=== PATIENT | male | born 1950 | race Caucasian/White ===

== ENCOUNTER 2019-09-04 14:10 | Inpatient (IN) | payer MEDICARE ==
[2019-09-04] MEDS ORDERED: MORPHINE SULFATE 4 MG/ML SYRINGE IV STA (14:33)
--- NOTE | 2019-09-04 14:36 | ED ---
General Adult HPI - General Source: patient, EMS Mode of arrival: EMS Limitations: no limitations <TyrellAlberto D - Last Filed: 09/04/19 15:11> <Dante Driscoll - Last Filed: 09/04/19 19:52> - General Chief complaint: Shortness of Breath Stated complaint: SOB Time Seen by Provider: 09/04/19 14:22 - History of Present Illness Initial comments: Dictation was produced using [employer] dictation software. please excuse any grammatical, word or spelling errors. This patient was cared for during a federal and state declared state of emergency secondary to Covid 19 Chief Complaint: 68-year-old male presents with bilateral lower extremity leg edema, lower extremity pain and shortness of breath. History of Present Illness: 68-year-old male who has past medical history of heart failure, hypertension myocardial infarction. He presents today with shortness of breath, lower extremity edema and lower extremity pain. Patient states his symptoms began yesterday. When asked which symptoms he is most concerned about his most concerned about his leg pain. Patient states he has exquisite tenderness to bilateral lower extremities worse on the left leg compared to the right. States his whole leg is in pain even to light touch. He states that he is really weak. He feels so weak that he can't stand up and walk. Patient denies any history of neuropathy. Denies any history of gout. Patient states that shortness of breath and lower extremity swelling have been ongoing for years now. The ROS documented in this emergency department record has been reviewed and confirmed by me. Those systems with pertinent positive or negative responses have been documented in the HPI. All other systems are other negative and/or noncontributory. PHYSICAL EXAM: General Impression: Alert and oriented x3, not in acute distress HEENT: Normocephalic atraumatic, extra-ocular movements intact, pupils equal and reactive to light bilaterally, mucous membranes moist. Cardiovascular: Heart regular rate and rhythm Chest: Able to complete full sentences, no retractions, no tachypnea Abdomen: abdomen soft, non-tender, non-distended, no organomegaly Musculoskeletal: Pulses present and equal in all extremities, no peripheral edema, tenderness with palpation around the left ankle joint with flexion and extension. Ankle otherwise looks benign. Motor: no focal deficits noted Neurological: CN II-XII grossly intact, no focal motor or sensory deficits noted Skin: Intact with no visualized rashes, exquisite tenderness with even light touch to his lower extremities Psych: Normal affect and mood ED course: 82-year-old male presents with multiple complaints. Main complaint is pain to the lower extremities bilaterally. He reports that the pain is so bad that he can't walk. All signs upon arrival are within acceptable limits. Patient care center to Dr. Driscoll. My shift is ending at 3 PM. EKG interpretation: Ventricular rate 93, normal sinus rhythm,. 164, QRS 76, QTC 487. No ND prolongation, no QTC prolongation, no ST or T-wave changes noted. Overall, this EKG is unremarkable (Alberto Santillan) - Related Data Allergies Allergy/AdvReac Type Severity Reaction Status Date / Time No Known Allergies Allergy Verified 09/04/19 18:31 Review of Systems ROS Other: All systems not noted in ROS Statement are negative. <Alberto Santillan - Last Filed: 09/04/19 15:11> ROS Other: All systems not noted in ROS Statement are negative. <Dante Driscoll - Last Filed: 09/04/19 19:52> ROS Statement: Those systems with pertinent positive or pertinent negative responses have been documented in the HPI. Past Medical History Past Medical History: Heart Failure, Hypertension, Myocardial Infarction ([place]), Pulmonary Embolus ([place]) History of Any Multi-Drug Resistant Organisms: None Reported Past Surgical History: Heart Catheterization With Stent Past Psychological History: No Psychological Hx Reported Smoking Status: Current every day smoker Past Alcohol Use History: Daily Past Drug Use History: None Reported <Alberto Santillan - Last Filed: 09/04/19 15:11> General Exam Limitations: no limitations <Alberto Santillan - Last Filed: 09/04/19 15:11> Course Vital Signs 09/04/19 09/04/19 09/04/19 14:13 14:24 14:32 Temperature 99.0 F Pulse Rate 92 Respiratory 20 20 Rate Blood Pressure 107/84 O2 Sat by Pulse 94 L 100 Oximetry 09/04/19 09/04/19 09/04/19 15:38 18:40 19:00 Temperature Pulse Rate 93 80 87 Respiratory 18 18 16 Rate Blood Pressure 103/65 112/78 128/69 O2 Sat by Pulse 100 100 97 Oximetry Medical Decision Making - Lab Data Result diagrams: 09/04/19 14:40 <Alberto Santillan - Last Filed: 09/04/19 15:11> - Lab Data Result diagrams: 09/04/19 14:40 09/04/19 14:40 <Dante Driscoll - Last Filed: 09/04/19 19:52> - Medical Decision Making I started the patient high-dose heparin once I saw the CTA showing occlusions of the superficial femoral and the right perineal arteries. I consult to Dr. Rooney and I spoke with Dr. Elaine from [facility] he agreed to admit the patient I wrote admitting orders. I continued heparin on the floor (Dante Driscoll) - Lab Data Lab Results 09/04/19 09/04/19 09/04/19 Range/Units 14:40 14:40 14:40 WBC 5.8 (3.8-10.6) k/uL RBC 2.33 L (4.30-5.90) m/uL Hgb 9.3 L (13.0-17.5) gm/dL Hct 28.0 L (39.0-53.0) % MCV 120.1 H (80.0-100.0) fL MCH 39.9 H (25.0-35.0) pg MCHC 33.2 (31.0-37.0) g/dL RDW 16.0 H (11.5-15.5) % Plt Count 154 (150-450) k/uL Neutrophils % 75 % Lymphocytes % 16 % Monocytes % 6 % Eosinophils % 0 % Basophils % 1 % Neutrophils # 4.4 (1.3-7.7) k/uL Lymphocytes # 0.9 L (1.0-4.8) k/uL Monocytes # 0.3 (0-1.0) k/uL Eosinophils # 0.0 (0-0.7) k/uL Basophils # 0.1 (0-0.2) k/uL Manual Slide Review Performed Anisocytosis Slight Macrocytosis Marked A PT 10.1 (9.0-12.0) sec INR 1.0 (<1.2) APTT 27.6 (22.0-30.0) sec Sodium 138 (137-145) mmol/L Potassium 3.3 L (3.5-5.1) mmol/L Chloride 108 H (98-107) mmol/L Carbon Dioxide 19 L (22-30) mmol/L Anion Gap 11 mmol/L BUN 11 (9-20) mg/dL Creatinine 1.40 H (0.66-1.25) mg/dL Est GFR (CKD-EPI)AfAm 60 (>60 ml/min/1.73 sqM) Est GFR (CKD-EPI)NonAf 51 (>60 ml/min/1.73 sqM) Glucose 96 (74-99) mg/dL Calcium 8.3 L (8.4-10.2) mg/dL Total Bilirubin 1.4 H (0.2-1.3) mg/dL AST 43 (17-59) U/L ALT 18 (4-49) U/L Alkaline Phosphatase 27 L (38-126) U/L Troponin I (0.000-0.034) ng/mL NT-Pro-B Natriuret Pep pg/mL Total Protein 5.7 L (6.3-8.2) g/dL Albumin 2.9 L (3.5-5.0) g/dL 09/04/19 09/04/19 Range/Units 14:40 14:40 WBC (3.8-10.6) k/uL RBC (4.30-5.90) m/uL Hgb (13.0-17.5) gm/dL Hct (39.0-53.0) % MCV (80.0-100.0) fL MCH (25.0-35.0) pg MCHC (31.0-37.0) g/dL RDW (11.5-15.5) % Plt Count (150-450) k/uL Neutrophils % % Lymphocytes % % Monocytes % % Eosinophils % % Basophils % % Neutrophils # (1.3-7.7) k/uL Lymphocytes # (1.0-4.8) k/uL Monocytes # (0-1.0) k/uL Eosinophils # (0-0.7) k/uL Basophils # (0-0.2) k/uL Manual Slide Review Anisocytosis Macrocytosis PT (9.0-12.0) sec INR (<1.2) APTT (22.0-30.0) sec Sodium (137-145) mmol/L Potassium (3.5-5.1) mmol/L Chloride (98-107) mmol/L Carbon Dioxide (22-30) mmol/L Anion Gap mmol/L BUN (9-20) mg/dL Creatinine (0.66-1.25) mg/dL Est GFR (CKD-EPI)AfAm (>60 ml/min/1.73 sqM) Est GFR (CKD-EPI)NonAf (>60 ml/min/1.73 sqM) Glucose (74-99) mg/dL Calcium (8.4-10.2) mg/dL Total Bilirubin (0.2-1.3) mg/dL AST (17-59) U/L ALT (4-49) U/L Alkaline Phosphatase (38-126) U/L Troponin I 0.024 (0.000-0.034) ng/mL NT-Pro-B Natriuret Pep 1470 pg/mL Total Protein (6.3-8.2) g/dL Albumin (3.5-5.0) g/dL Critical Care Time Critical Care Time: Yes Total Critical Care Time: 35 <Dante Driscoll - Last Filed: 09/04/19 19:52> Disposition <Alberto Santillna - Last Filed: 09/04/19 15:11> Time of Disposition: 19:52 <Dante Driscoll - Last Filed: 09/04/19 19:52> Clinical Impression: Bilateral leg pain, Pedal edema, Pulmonary edema Disposition: ADMITTED IP TO THIS [facility] Referrals: Nonstaff,Physician [REFERRING] - 1-2 days
[2019-09-04 14:54] LABS: Anisocytosis Slight; Basophils # (A) 0.1 k/uL (0-0.2); Basophils % (A) 1 %; Eosinophils % (A) 0 %; HGB 9.3 gm/dL (13.0-17.5); Lymphocytes # (A) 0.9 k/uL (1.0-4.8); Lymphocytes % (A) 16 %; MCH 39.9 pg (25.0-35.0); MCHC 33.2 g/dL (31.0-37.0); MCV 120.1 fL (80.0-100.0); Macrocytosis Marked; Mean Platelet Volume 8.4; Monocytes # (A) 0.3 k/uL (0-1.0); Monocytes % (A) 6 %; Neutrophils # (A) 4.4 k/uL (1.3-7.7); Neutrophils % (A) 75 %; Platelet Count 154 k/uL (150-450); RBC 2.33 m/uL (4.30-5.90); WBC 5.8 k/uL (3.8-10.6)
[2019-09-04 15:13] LABS: Partial Thromboplastin Time 27.6 sec (22.0-30.0); Prothrombin Time 10.1 sec (9.0-12.0)
--- NOTE | 2019-09-04 15:26 | XR ---
EXAMINATION TYPE: XR chest 1V portable DATE OF EXAM: 09/04/2019 Comparison: None Clinical History: 68-year-old male shortness of breath, bilateral leg swelling and pain, dyspnea Findings: Median sternotomy wires are present. Heart borderline in size. Mild perihilar density. Hazy periphera l lower lung density relates to overlying soft tissue. Impression: Mild perihilar density. Correlate to exclude mild pulmonary vascular congestion, bronchitis, or asthm a. No focal infiltrate.
--- NOTE | 2019-09-04 15:28 | XR ---
EXAMINATION TYPE: AP view pelvis and 2 views each hip 3 views left ankle DATE OF EXAM: 09/04/2019 COMPARISON: NONE HISTORY: 68-year-old male with pain and swelling FINDINGS: Pelvis and hips: Moderate degenerative change right hip and mild on the left. Vascular calcifications. SI joints and p ubic symphysis (appear intact. No acute fracture, subluxation, or dislocation. Left ankle: Ankle mortise is congruent with preservation of the distal tibiofibular overlap. Mild generalized sof t tissue swelling. Subtalar joint alignment. Small delineation to the Achilles tendon. No acute fract ure, subluxation, or dislocation. IMPRESSION: 1. Pelvis and hips: Moderate right hip and mild left hip OA. No acute osseous abnormality seen. 2. Left ankle: Mild soft tissue swelling without acute osseous abnormality seen.
[2019-09-04 15:32] LABS: Albumin 2.9 g/dL (3.5-5.0); Calcium 8.3 mg/dL (8.4-10.2); Potassium 3.3 mmol/L (3.5-5.1); Total Bilirubin 1.4 mg/dL (0.2-1.3); Total Protein 5.7 g/dL (6.3-8.2)
[2019-09-04] MEDS ORDERED: KETOROLAC 60 MG/2 ML VIAL IVP STA (16:43)
[2019-09-04] MEDS ORDERED: FUROSEMIDE 10 MG/ML 2 ML VIAL IV ONE (16:44)
[2019-09-04] MEDS ORDERED: POTASSIUM CHLORIDE ER 20 MEQ TAB.ER PO STA (16:45)
[2019-09-04] MEDS ORDERED: RX INFO: IV CONTRAST WAS GIVEN 1 EACH MISC MISCELLANE PRN (17:52)
--- NOTE | 2019-09-04 18:59 | CT ---
EXAMINATION TYPE: CT angio lower extremity RT DATE OF EXAM: 09/04/2019 6:35 PM COMPARISON: None HISTORY: Left leg pain, unable to obtain pulses right side. CT DLP: 1305.8 mGycm Automated exposure control for dose reduction was used. TECHNIQUE: Standard CTA of the lower extremities was performed per department protocol with intravenous contrast . Performed with IV Contrast, patient injected with 80 mL of Isovue 370. Three-D reformatted images i n bone and vascular algorithm were obtained at a separate workstation and submitted for review of the lower extremities. FINDINGS: There is complete occlusion of the bilateral superficial femoral arteries beginning at the level of t he lesser trochanter with reconstitution of the popliteal arteries due to collateral branch vessels a nd patency of the deep femoral arteries. 3 branch vessels of the right lower extremity are seen proximally although lesser opacified than on t he left. There is occlusion of the peroneal artery on the right just above the ankle joint and diminu tive flow within the posterior tibial and anterior tibial arteries. Superficial collaterals are seen in the right knee the popliteal artery. The abdominal aorta is heavily calcified with approximately 50% ostial stenosis of the bilateral edwardo l arteries. There is some ostial stenosis of the celiac axis and superior mesenteric artery that appe ar less than 50%. Proximal NATHALIE is widely patent. Extensive atherosclerosis extends into the common il iac arteries and their branches. There is bilateral mild cortical renal atrophy. Nonobstructing calculus is seen on the left measuring approximately 5 mm. No hydronephrosis of either kidney. Superior pole of the kidneys is not imaged. Left adrenal gland is partially limited unremarkable. Gallbladder is also partially imaged. Hepatic s teatosis is partially imaged of only the inferior visualized portion of the liver. The position of marin bmucosal fat is seen in the visualized portions of the right hemicolon and terminal ileum suggesting chronic inflammatory bowel disease. No dilated large or small bowel. Mild to moderate degenerative ch anges of the spine. Medial compartment arthrosis of both knees. IMPRESSION: 1. 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 2. BRANCH VESSELS OF THE RIGHT POPLITEAL ARTERY ARE LESS ARE OPACIFIED THAN ON THE LEFT AND THERE IS OCCLUSION DISTALLY OF THE RIGHT PERONEAL ARTERY. THIS IS SEEN JUST PROXIMAL TO THE ANKLE JOINT. 3. EXTENSIVE ATHEROSCLEROSIS OF THE ABDOMINAL AORTA AND ITS BRANCHES WITH RENAL OSTIAL STENOSIS OF AP PROXIMATELY 50% BILATERALLY. 4. SUBMUCOSAL DEPOSITION OF FAT IN THE VISUALIZED RIGHT HEMICOLON AND TERMINAL ILEUM SUGGESTING UNDER LYING INFLAMMATORY BOWEL DISEASE. 5. NONOBSTRUCTING LEFT RENAL CALCULUS.
[2019-09-04] MEDS ORDERED: HYDROmorphone 0.5 MG/0.5 ML SYRINGE IVP STA (19:25)
[2019-09-04] MEDS ORDERED: HEPARIN SODIUM,PORCINE 5,000 UNIT/ML 1 ML VIAL IV ONE (19:42)
[2019-09-04] MEDS ORDERED: HEPARIN SOD,PORK IN 0.45% NACL 25,000 UNIT in 0.45% NACL 1 250ML.BAG IV SCH (19:45)
[2019-09-04] MEDS ORDERED: HEPARIN SODIUM,PORCINE 10,000 UNIT/ML 1 ML VIAL IV ONE (19:50)
[2019-09-04] MEDS ORDERED: SODIUM CHLORIDE 0.9% 1,000 ML IV ONE (19:53)
[2019-09-04] MEDS: HEPARIN SOD,PORK IN 0.45% NACL 25,000 UNIT in 0.45% NACL 1 250ML.BAG IV SCH (20:46)
[2019-09-04] MEDS: HYDROmorphone 0.5 MG/0.5 ML SYRINGE IVP PRN (22:11)
[2019-09-05] MEDS ORDERED: ATORVASTATIN 80 MG TAB PO STA (00:59)
--- NOTE | 2019-09-05 01:04 | P.HPIM ---
History of Present Illness H&P Date: 09/04/19 The patient is a 68-year-old male with a PMH of CAD status post stenting, CHF, history of PE, and PVD presented to the ED with complaints of long-standing leg and hip pain. The patient notes that he has been having pain with ambulation in both his legs and groin for the past several months. He reports that the pain has recently worsened, and he is now unable to ambulate due to it. He reports following with a physician for his pain, though is unable to recall what their plan was. He reports that though the pain is largely with ambulation, he also has pain in his hips with passive movement of the legs. He denied any pain at rest, tingling, numbness, or weakness. He notes that a few days ago, he was ambulated with a cane, which she is no longer able to do. He lives by himself and has been finding it difficult to perform his ADLs. He also endorsed gradually worsening exertional SOB on-going for the past few weeks. Otherwise denied any additional complaints. Denied chest pain, cough, fever, chills, or sore throat. Also denied abdominal pain, nausea, vomiting, diarrhea, or headache. The patient underwent an extensive evaluation in the emergency room with a lower extremity CTA revealing complete occlusion of the bilateral superficial femoral arteries beginning at the level of the lesser trochanters with collateral vasculature and patent deep femoral arteries. Extensive athero sclerosis of the abdominal aorta and its branches was noted. Incidental finding of submucosal fat deposition and the hemicolon and nonobstructing left renal calculi was noted. Pelvis x-ray revealed mild and moderate osteoarthritis but otherwise unremarkable. Chest x-ray had revealed a mild perihilar density, possible vascular congestion. Laboratory evaluation revealed a WBC count of 5.8, hemoglobin 9.8, sodium 138, potassium 3.3, chloride 108, CO2 19, BUN 11, creatinine 1.4, and coronavirus PCR negative. Review of Systems Pertinent positives and negatives as discussed in HPI, a complete review of systems was performed and all other systems are negative. Past Medical History Past Medical History: Heart Failure, Hypertension, Myocardial Infarction ([place]), Pulmonary Embolus ([place]) History of Any Multi-Drug Resistant Organisms: None Reported Past Surgical History: Heart Catheterization With Stent Past Psychological History: No Psychological Hx Reported Smoking Status: Current every day smoker Past Alcohol Use History: Daily Past Drug Use History: None Reported Medications and Allergies Home Medications Medication Instructions Recorded Confirmed Type Aspirin EC [Ecotrin Low Dose] 81 mg PO DAILY 09/04/19 09/04/19 History Allergies Allergy/AdvReac Type Severity Reaction Status Date / Time No Known Allergies Allergy Verified 09/04/19 18:31 Physical Exam Vitals: Vital Signs Temp Pulse Resp BP Pulse Ox 09/04/19 22:11 98.1 F 77 18 104/61 98 09/04/19 19:00 87 16 128/69 97 09/04/19 18:40 80 18 112/78 100 09/04/19 15:38 93 18 103/65 100 09/04/19 14:32 20 09/04/19 14:24 100 09/04/19 14:13 99.0 F 92 20 107/84 94 L Intake and Output 09/04/19 09/04/19 09/05/19 14:59 22:59 06:59 Other: Weight 102.058 kg General: non toxic, no distress, appears at stated age, obese Derm: no unusual rashes/lesions no unusual ecchymoses, warm, dry Head: atraumatic, normocephalic, symmetric Eyes: EOMI, no lid lag, anicteric sclera, pupils equal round reactive to light ENT: Nose and ears atraumatic, no thrush, no pharyngeal erythema Neck: No thyromegaly, no cervical lymphadenopathy, trachea midline, supple Mouth: no lip lesion, mucus membranes moist Cardiovascular: S1S2 reg, no murmur, unable to palpate bilateral dorsalis pedis or posterior tibial pulses, no edema Lungs: Mild bibasilar rales, no rhonchi or wheezing appreciated, no accessory muscle use Abdominal: soft, nontender to palpation, no guarding, no appreciable organomegaly, normal bowel sounds Ext: Bilateral lower extremity pain with active and passive movements, with pain centered around the knees and hips, no contractures, Neuro: CN II-XI grossly intact, light touch intact all 4 extremities, finger to nose within normal limits, Psych: Alert, oriented, appropriate affect Results CBC & Chem 7: 09/04/19 14:40 09/04/19 14:40 Labs: Abnormal Lab Results - Last 24 Hours (Table) 09/04/19 09/04/19 Range/Units 14:40 14:40 RBC 2.33 L (4.30-5.90) m/uL Hgb 9.3 L (13.0-17.5) gm/dL Hct 28.0 L (39.0-53.0) % MCV 120.1 H (80.0-100.0) fL MCH 39.9 H (25.0-35.0) pg RDW 16.0 H (11.5-15.5) % Lymphocytes # 0.9 L (1.0-4.8) k/uL Macrocytosis Marked A Potassium 3.3 L (3.5-5.1) mmol/L Chloride 108 H (98-107) mmol/L Carbon Dioxide 19 L (22-30) mmol/L Creatinine 1.40 H (0.66-1.25) mg/dL Calcium 8.3 L (8.4-10.2) mg/dL Total Bilirubin 1.4 H (0.2-1.3) mg/dL Alkaline Phosphatase 27 L (38-126) U/L Total Protein 5.7 L (6.3-8.2) g/dL Albumin 2.9 L (3.5-5.0) g/dL Assessment and Plan Plan: Bilateral lower extremity pain, likely due to peripheral vascular disease -Vascular surgery consulted -ED physician discussed the case with Dr. Shook (Vascular Surgeon) recommended an evaluation for now with evaluation in am -Continue with heparin infusion -Continue with pain control -Start Statin -Patient's home med list is not updated and he does not know the names of any of his medications -Will need to call his pharmacy in the morning and obtain the list SOB, with hx of CHF -Echocardiogram -Judicious use of IVFs -Consider obtaining records -Cardiac monitoring Hypokalemia -Replace and monitor Macrocytic anemia -Check B12 and folate Elevated creatinine, unknown baseline -Monitor BMP for now DVT prophylaxis -Heparin infusion The patient is admitted with an anticipated greater than 2 midnight stay for evaluation of peripheral vascular disease CODE STATUS: Full Code Discussed with: Patient Anticipated discharge date: 2-[address]: Home A total of 45 minutes was spent on the care of this complex patient more than 50% of the time was spent in counseling and care coordination.
[2019-09-05 03:25] LABS: Anisocytosis Slight; HCT 25.3 % (39.0-53.0); HGB 8.3 gm/dL (13.0-17.5); Hypochromasia Slight; MCH 40.1 pg (25.0-35.0); MCHC 32.6 g/dL (31.0-37.0); Macrocytosis Marked; Mean Platelet Volume 8.2; Platelet Count 119 k/uL (150-450); RBC 2.06 m/uL (4.30-5.90); RDW 16.6 % (11.5-15.5); WBC 4.4 k/uL (3.8-10.6)
[2019-09-05 03:43] LABS: Calcium 7.9 mg/dL (8.4-10.2); Potassium 3.4 mmol/L (3.5-5.1)
[2019-09-05] MEDS: HYDROmorphone 0.5 MG/0.5 ML SYRINGE IVP PRN (04:10)
[2019-09-05] MEDS ORDERED: FUROSEMIDE 10 MG/ML 2 ML VIAL IV SCH (09:00)
[2019-09-05 10:19] LABS: % Iron Saturation 29.25 (15.00-50.00)
[2019-09-05 10:30] LABS: Folate, Serum 2.1 ng/mL
--- NOTE | 2019-09-05 11:00 | ECHOF ---
Referral Reason:SOB MEASUREMENTS -------- HEIGHT: 180.3 cm WEIGHT: 102.1 kg BP: 118/56 RVIDd: 3.3 cm (< 3.3) IVSd: 1.1 cm (0.6 - 1.1) LVIDd: 4.3 cm (3.9 - 5.3) LVPWd: 1.2 cm (0.6 - 1.1) IVSs: 1.5 cm LVIDs: 2.7 cm LVPWs: 2.4 cm LAESV Index (A-L): 18.73 ml/m Ao Diam: 3.4 cm (2.0 - 3.7) AV Cusp: 1.7 cm (1.5 - 2.6) LA Diam: 4.0 cm (2.7 - 3.8) MV EXCURSION: 12.104 mm (> 18.000) MV EF SLOPE: 56 mm/s (70 - 150) EPSS: 0.4 cm MV E Dorian: 0.82 m/s MV DecT: 236 ms MV A Dorian: 0.99 m/s MV E/A Ratio: 0.83 RAP: 5.00 mmHg RVSP: 19.26 mmHg TAPSE: 21.26 mm FINDINGS -------- Sinus rhythm. This was a technically adequate study. The left ventricular size is normal. There is borderline concentric left ventricular hypertrophy. Overall left ventricular systolic function is normal with, an EF between 55 - 60 %. Normal LAP Gra de 1 Diastolic Dysfunction. The right ventricle is mildly enlarged. The right ventricular systolic function is normal. The left atrial size is normal. Normal LA size by volume 22+/-6 ml/m2. The right atrial size is normal. The aortic valve is trileaflet and appears structurally normal. The mitral valve is normal. Mild mitral regurgitation is present. The tricuspid valve appears structurally normal. Mild tricuspid regurgitation present. Right vent ricular systolic pressure is normal at < 35 mmHg. There is no pulmonic regurgitation present. The aortic root size is normal. Normal inferior vena cava with normal inspiratory collapse consistent with estimated right atrial pre ssure of 5 mmHg. There is a small, generalized pericardial effusion present. CONCLUSIONS -------- 1. Sinus rhythm. 2. This was a technically adequate study. 3. The left ventricular size is normal. 4. There is borderline concentric left ventricular hypertrophy. 5. Overall left ventricular systolic function is normal with, an EF between 55 - 60 %. 6. Normal LAP Grade 1 Diastolic Dysfunction. 7. The right ventricle is mildly enlarged. 8. The right ventricular systolic function is normal. 9. The left atrial size is normal. 10. Normal LA size by volume 22+/-6 ml/m2. 11. The right atrial size is normal. 12. The aortic valve is trileaflet and appears structurally normal. 13. The mitral valve is normal. 14. Mild mitral regurgitation is present. 15. The tricuspid valve appears structurally normal. 16. Mild tricuspid regurgitation present. 17. Right ventricular systolic pressure is normal at < 35 mmHg. 18. There is no pulmonic regurgitation present. 19. The aortic root size is normal. 20. Normal inferior vena cava with normal inspiratory collapse consistent with estimated right atrial pressure of 5 mmHg. 21. There is a small, generalized pericardial effusion present. SAUSAGE INSPECTOR: Candida Velasquez RDCS
[2019-09-05] MEDS ORDERED: MORPHINE SULFATE 4 MG/ML SYRINGE IVP PRN ×2 (11:30→12:10)
[2019-09-05] MEDS: HEPARIN SOD,PORK IN 0.45% NACL 25,000 UNIT in 0.45% NACL 1 250ML.BAG IV SCH (12:09)
[2019-09-05] MEDS: ATORVASTATIN 80 MG TAB PO SCH (12:13)
[2019-09-05] MEDS ORDERED: Potassium Replacement Protocol 1 EACH MISC MISCELLANE PRN (12:19)
[2019-09-05] MEDS: ATORVASTATIN 20 MG TAB PO SCH (12:20)
[2019-09-05] MEDS: APIXABAN 5 MG TAB PO SCH ×2 (12:25→21:18)
[2019-09-05] MEDS: GABAPENTIN 300 MG CAP PO SCH ×2 (12:25→21:18)
[2019-09-05] MEDS: ASPIRIN 81 MG PO SCH (12:25)
[2019-09-05] MEDS: LORATADINE 10 MG TAB PO SCH (12:25)
--- NOTE | 2019-09-05 12:44 | P.PN ---
Subjective Progress Note Date: 09/05/19 Principal diagnosis: Bilateral lower extremity pain Patient was seen and examined. No acute events overnight. Patient reports 10 out of 10 excruciating bilateral lower extremity pain. States that he is unable to walk. Pain with only light touch. Lives alone. He denies any chest pain, shortness of breath or palpitations. No nausea or vomiting. No fever or chills. Objective - Vital Signs Vital signs: Vital Signs Temp 98.1 F 09/05/19 12:10 Pulse 83 09/05/19 12:10 Resp 18 09/05/19 12:10 BP 92/51 09/05/19 12:10 Pulse Ox 97 09/05/19 12:10 Intake & Output 09/04/19 09/05/19 09/05/19 18:59 06:59 18:59 Intake Total 733.183 341.805 Output Total 800 Balance -66.817 341.805 Weight 102.058 kg 71.5 kg Intake: Intake, IV Titration 733.183 101.805 Amount Heparin Sod,Pork in 0.45% 133.183 101.805 NaCl 25,000 unit In 0.45 % NaCl 1 250ml.bag @ 18 UNITS/KG/HR 18.37 mls/hr IV .[id number] [facility] Rx#: [id number] Sodium Chloride 0.9% 1, 600 000 ml @ 75 mls/hr IV . [id number] Rx#:[id number] Oral 240 Output: Urine 800 Straight 800 Other: Voiding Method Urinal - Exam General: [non toxic], [no distress], [appears at stated age] Derm: [warm], [dry] Head: [atraumatic], [normocephalic], [symmetric] Eyes: [EOMI], [no lid lag], [anicteric sclera] Mouth: [no lip lesion], [mucus membranes moist] Cardiovascular: [S1S2 reg], [no murmur], [unable to palpate DP or PT pulses bilaterally], Lungs: [Decreased breath sounds bilateral], [no rhonchi, no rales] , [no accessory muscle use] Abdominal: [soft], [ nontender to palpation], [no guarding], [no appreciable organomegaly] Ext: [no gross muscle atrophy], [no edema], [no contractures] Neuro: [no focal neuro deficits] Psych: [Alert], [oriented], [appropriate affect] - Labs CBC & Chem 7: 09/05/19 02:55 09/05/19 02:55 Labs: Abnormal Lab Results - Last 24 Hours (Table) 09/04/19 09/04/19 09/05/19 Range/Units 14:40 14:40 02:55 RBC 2.33 L 2.06 L (4.30-5.90) m/uL Hgb 9.3 L 8.3 L (13.0-17.5) gm/dL Hct 28.0 L 25.3 L (39.0-53.0) % MCV 120.1 H 123.0 H (80.0-100.0) fL MCH 39.9 H 40.1 H (25.0-35.0) pg RDW 16.0 H 16.6 H (11.5-15.5) % Plt Count 119 L (150-450) k/uL Lymphocytes # 0.9 L (1.0-4.8) k/uL Macrocytosis Marked A Marked A APTT (22.0-30.0) sec Potassium 3.3 L (3.5-5.1) mmol/L Chloride 108 H (98-107) mmol/L Carbon Dioxide 19 L (22-30) mmol/L Creatinine 1.40 H (0.66-1.25) mg/dL Glucose (74-99) mg/dL Calcium 8.3 L (8.4-10.2) mg/dL Iron (65-175) ug/dL TIBC (228-460) ug/dL Total Bilirubin 1.4 H (0.2-1.3) mg/dL Alkaline Phosphatase 27 L (38-126) U/L Total Protein 5.7 L (6.3-8.2) g/dL Albumin 2.9 L (3.5-5.0) g/dL 09/05/19 09/05/19 Range/Units 02:55 02:55 RBC (4.30-5.90) m/uL Hgb (13.0-17.5) gm/dL Hct (39.0-53.0) % MCV (80.0-100.0) fL MCH (25.0-35.0) pg RDW (11.5-15.5) % Plt Count (150-450) k/uL Lymphocytes # (1.0-4.8) k/uL Macrocytosis APTT >200.0 H* (22.0-30.0) sec Potassium 3.4 L (3.5-5.1) mmol/L Chloride (98-107) mmol/L Carbon Dioxide (22-30) mmol/L Creatinine 1.71 H (0.66-1.25) mg/dL Glucose 130 H (74-99) mg/dL Calcium 7.9 L (8.4-10.2) mg/dL Iron 62 L (65-175) ug/dL TIBC 212 L (228-460) ug/dL Total Bilirubin (0.2-1.3) mg/dL Alkaline Phosphatase (38-126) U/L Total Protein (6.3-8.2) g/dL Albumin (3.5-5.0) g/dL Assessment and Plan Assessment: Bilateral lower extremity pain, likely due to peripheral vascular disease -Vascular surgery consulted -As per RN, no plans for intervention by vascular surgery -Discontinue heparin and restart Eliquis and aspirin -Start Statin -Pain control with [place] scheduled and morphine as needed. -Follow-up PT and OT consultation Diastolic CHF -Echocardiogram shows preserved EF with grade 1 diastolic dysfunction -Judicious use of IVFs Hypokalemia -Replace and monitor Macrocytic anemia -B12 low normal and folate within normal limits. Marginally low iron and TIBC. Likely component of iron deficiency. Start iron supplementation along with B12 supplementation. Elevated creatinine, unknown baseline -Monitor BMP for now DVT prophylaxis -Heparin infusion
--- NOTE | 2019-09-05 13:07 | P.GSCN ---
History of Present Illness History of present illness: HISTORY OF PRESENTING ILLNESS This is a pleasant 68-year-old male past medical history significant for coronary artery disease, heart failure, hypertension, pulmonary embolism, chronic nicotine dependence and daily alcohol intake. We have been asked to see in consultation for serial occlusion of the lower extremities. He presented to the emergency department last night with symptoms of lower extremity edema, lower extremity pain and shortness of breath. He states his symptoms have worsened over the previous 24 hours. He's had no prior revascularization that he can recall. CT angiogram or the right lower extreity reveals complete occlusion of the bilateral superficial femoral arteries beginging at the level of the lesser trochangers with reconsitution of the popiteal arteries secondary to collaterals and patent deep femoral arteries. Distal occlusion of the right perineal artery. Extensive atherosclerosis of the abdominal aorta with renal ostial stenosis of 50%. REVIEW OF SYSTEMS At the time of my exam: CONSTITUTIONAL: Denies fever or chills. CARDIOVASCULAR: Complains of shortness of breath. Denies chest pain, orthopnea, PND or palpitations. RESPIRATORY: Denies cough. GASTROINTESTINAL: Denies abdominal pain, diarrhea, constipation, nausea or vomiting. MUSCULOSKELETAL: Complains of bilateral lower extremity pain. NEUROLOGIC: Denies numbness, tingling or weakness. ENDOCRINE: Denies fatigue, weight change, polydipsia or polyurina. GENITOURINARY: Denies burning, hematuria or urgency with micturation. HEMATOLOGIC: Denies history of anemia or bleeding. PHYSICAL EXAMINATION Blood pressure 101/53 heart rate 71 afebrile and maintaining oxygen saturation on nasal cannula. CONSTITUTIONAL: No apparent distress. HEENT: Head is normocephalic. Pupils are equal, round. Sclerae anicteric. Mucous membranes of the mouth are moist. No JVD. No carotid bruit. CHEST EXAMINATION: Lungs are clear to auscultation. No chest wall tenderness is noted on palpation or with deep breathing. HEART EXAMINATION: Regular rate and rhythm. S1, S2 heard. No murmurs, gallops or rub. EXTREMITIES: Distal pedal pulse with doppler, no pulse palpated at the popiteal. Pain with palpation. NEUROLOGIC EXAMINATION: Patient is awake, alert and oriented x3. ASSESSMENT Peripheral vascular disease with bilateral lower extremity disease as well as atherosclerotic aorta. CTA indicates there reconstitution with collateral flow. Leg pain, chronic PLAN No plans for emergent surgical intervention. Check ROBYN. Follow up in the office for further discussion of outpatient revascularization. Thank you kindly for this consultation. Nurse Practitioner note has been reviewed, I agree with a documented findings and plan of care. Patient was seen and examined. Past Medical History Past Medical History: Heart Failure, Hypertension, Myocardial Infarction ([place]), Pulmonary Embolus (PE) Last Myocardial Infarction Date:: UNSURE History of Any Multi-Drug Resistant Organisms: None Reported Past Surgical History: Heart Catheterization With Stent Date of Last Stent Placement:: UNSURE Past Psychological History: No Psychological Hx Reported Smoking Status: Current every day smoker Past Alcohol Use History: Daily Past Drug Use History: None Reported - Past Family History Mother History Unknown: Yes Medications and Allergies Home Medications Medication Instructions Recorded Confirmed Type Aspirin EC [Ecotrin Low Dose] 81 mg PO DAILY 09/04/19 09/04/19 History Apixaban [Eliquis] 5 mg PO BID 09/05/19 09/05/19 History Furosemide [Lasix] 40 mg PO DAILY 09/05/19 09/05/19 History Gabapentin [Neurontin] 1 tablet PO BID 09/05/19 09/05/19 History Lisinopril 20 mg PO DAILY 09/05/19 09/05/19 History Loratadine 10 mg PO DAILY 09/05/19 09/05/19 History Metoprolol Succinate (ER) [Toprol 1 tab PO DAILY 09/05/19 09/05/19 History XL] Omeprazole [PriLOSEC] 40 mg PO DAILY 09/05/19 09/05/19 History Simvastatin 40 mg PO HS 09/05/19 09/05/19 History amLODIPine [Norvasc] 10 mg PO DAILY 09/05/19 09/05/19 History traMADol HCL [Ultram] 1 tab PO Q6HR PRN 09/05/19 09/05/19 History Allergies Allergy/AdvReac Type Severity Reaction Status Date / Time No Known Allergies Allergy Verified 09/04/19 18:31 Surgical - Exam Vital Signs Temp Pulse Resp BP Pulse Ox 99.0 F 92 20 107/84 94 L 09/04/19 14:13 09/04/19 14:13 09/04/19 14:13 09/04/19 14:13 09/04/19 14:13 Results - Labs 09/05/19 02:55 09/05/19 02:55 Abnormal Lab Results - Last 24 Hours (Table) 09/04/19 09/04/19 09/05/19 Range/Units 14:40 14:40 02:55 RBC 2.33 L 2.06 L (4.30-5.90) m/uL Hgb 9.3 L 8.3 L (13.0-17.5) gm/dL Hct 28.0 L 25.3 L (39.0-53.0) % MCV 120.1 H 123.0 H (80.0-100.0) fL MCH 39.9 H 40.1 H (25.0-35.0) pg RDW 16.0 H 16.6 H (11.5-15.5) % Plt Count 119 L (150-450) k/uL Lymphocytes # 0.9 L (1.0-4.8) k/uL Macrocytosis Marked A Marked A APTT (22.0-30.0) sec Potassium 3.3 L (3.5-5.1) mmol/L Chloride 108 H (98-107) mmol/L Carbon Dioxide 19 L (22-30) mmol/L Creatinine 1.40 H (0.66-1.25) mg/dL Glucose (74-99) mg/dL Calcium 8.3 L (8.4-10.2) mg/dL Iron (65-175) ug/dL TIBC (228-460) ug/dL Total Bilirubin 1.4 H (0.2-1.3) mg/dL Alkaline Phosphatase 27 L (38-126) U/L Total Protein 5.7 L (6.3-8.2) g/dL Albumin 2.9 L (3.5-5.0) g/dL 09/05/19 09/05/19 Range/Units 02:55 02:55 RBC (4.30-5.90) m/uL Hgb (13.0-17.5) gm/dL Hct (39.0-53.0) % MCV (80.0-100.0) fL MCH (25.0-35.0) pg RDW (11.5-15.5) % Plt Count (150-450) k/uL Lymphocytes # (1.0-4.8) k/uL Macrocytosis APTT >200.0 H* (22.0-30.0) sec Potassium 3.4 L (3.5-5.1) mmol/L Chloride (98-107) mmol/L Carbon Dioxide (22-30) mmol/L Creatinine 1.71 H (0.66-1.25) mg/dL Glucose 130 H (74-99) mg/dL Calcium 7.9 L (8.4-10.2) mg/dL Iron 62 L (65-175) ug/dL TIBC 212 L (228-460) ug/dL Total Bilirubin (0.2-1.3) mg/dL Alkaline Phosphatase (38-126) U/L Total Protein (6.3-8.2) g/dL Albumin (3.5-5.0) g/dL Diabetes panel 09/04/19 09/05/19 Range/Units 14:40 02:55 Sodium 138 137 (137-145) mmol/L Potassium 3.3 L 3.4 L (3.5-5.1) mmol/L Chloride 108 H 107 (98-107) mmol/L Carbon Dioxide 19 L 27 (22-30) mmol/L BUN 11 14 (9-20) mg/dL Creatinine 1.40 H 1.71 H (0.66-1.25) mg/dL Glucose 96 130 H (74-99) mg/dL Calcium 8.3 L 7.9 L (8.4-10.2) mg/dL AST 43 (17-59) U/L ALT 18 (4-49) U/L Alkaline Phosphatase 27 L (38-126) U/L Total Protein 5.7 L (6.3-8.2) g/dL Albumin 2.9 L (3.5-5.0) g/dL Calcium panel 09/04/19 09/05/19 Range/Units 14:40 02:55 Calcium 8.3 L 7.9 L (8.4-10.2) mg/dL Albumin 2.9 L (3.5-5.0) g/dL Pituitary panel 09/04/19 09/05/19 Range/Units 14:40 02:55 Sodium 138 137 (137-145) mmol/L Potassium 3.3 L 3.4 L (3.5-5.1) mmol/L Chloride 108 H 107 (98-107) mmol/L Carbon Dioxide 19 L 27 (22-30) mmol/L BUN 11 14 (9-20) mg/dL Creatinine 1.40 H 1.71 H (0.66-1.25) mg/dL Glucose 96 130 H (74-99) mg/dL Calcium 8.3 L 7.9 L (8.4-10.2) mg/dL Adrenal panel 09/04/19 09/05/19 Range/Units 14:40 02:55 Sodium 138 137 (137-145) mmol/L Potassium 3.3 L 3.4 L (3.5-5.1) mmol/L Chloride 108 H 107 (98-107) mmol/L Carbon Dioxide 19 L 27 (22-30) mmol/L BUN 11 14 (9-20) mg/dL Creatinine 1.40 H 1.71 H (0.66-1.25) mg/dL Glucose 96 130 H (74-99) mg/dL Calcium 8.3 L 7.9 L (8.4-10.2) mg/dL Total Bilirubin 1.4 H (0.2-1.3) mg/dL AST 43 (17-59) U/L ALT 18 (4-49) U/L Alkaline Phosphatase 27 L (38-126) U/L Total Protein 5.7 L (6.3-8.2) g/dL Albumin 2.9 L (3.5-5.0) g/dL
[2019-09-05] MEDS: FUROSEMIDE 40 MG TAB PO SCH (14:03)
[2019-09-05] MEDS: HYDROcodone/APAP 10-325MG 1 EACH TAB PO SCH ×2 (14:05→17:59)
[2019-09-06] MEDS: HYDROcodone/APAP 10-325MG 1 EACH TAB PO SCH (00:09)
[2019-09-06] MEDS: PANTOPRAZOLE 40 MG TABLET PO SCH (06:05)
[2019-09-06 06:36] LABS: HCT 27.4 % (39.0-53.0); HGB 8.8 gm/dL (13.0-17.5); Hypochromasia Slight; MCH 40.6 pg (25.0-35.0); MCHC 32.2 g/dL (31.0-37.0); MCV 125.9 fL (80.0-100.0); Mean Platelet Volume 8.6; Platelet Count 144 k/uL (150-450); RBC 2.18 m/uL (4.30-5.90); RDW 15.9 % (11.5-15.5); WBC 6.6 k/uL (3.8-10.6)
[2019-09-06 06:49] LABS: Albumin 2.7 g/dL (3.5-5.0); Calcium 7.7 mg/dL (8.4-10.2); Potassium 3.5 mmol/L (3.5-5.1); Total Bilirubin 1.1 mg/dL (0.2-1.3); Total Protein 5.5 g/dL (6.3-8.2)
[2019-09-06 06:54] LABS: Macrocytosis Marked
[2019-09-06] MEDS: APIXABAN 5 MG TAB PO SCH ×2 (09:35→21:19)
[2019-09-06] MEDS: CYANOCOBALAMIN 500 MCG TAB PO SCH (09:36)
[2019-09-06] MEDS: ATORVASTATIN 80 MG TAB PO SCH (09:36)
[2019-09-06] MEDS: LORATADINE 10 MG TAB PO SCH (09:36)
[2019-09-06] MEDS: GABAPENTIN 300 MG CAP PO SCH ×2 (09:36→21:19)
[2019-09-06 09:47] LABS: Reticulocyte % 2.53 % (0.10-1.80)
[2019-09-06] MEDS: ASPIRIN 81 MG PO SCH (09:56)
[2019-09-06 10:10] LABS: Protein, Total 5.1 g/dL (6.2-8.2)
--- NOTE | 2019-09-06 12:09 | XR ---
EXAMINATION TYPE: XR chest 1V portable DATE OF EXAM: 09/06/2019 HISTORY: shortness of breath. REFERENCE: Previous study dated 09/04/2019. FINDINGS: There has been a midline sternotomy. There is bibasilar airspace disease, worse on the left than the right. There have developed small, bi lateral effusions, greater on the left than the right. The heart is not enlarged. IMPRESSION: 1. BIBASILAR AIRSPACE DISEASE. 2. SMALL, BILATERAL EFFUSIONS.
[2019-09-06] MEDS: FERROUS SULFATE 325 MG TAB PO SCH (13:16)
[2019-09-06] MEDS: amLODIPine 10 MG TAB PO SCH (14:50)
[2019-09-06] MEDS: LISINOPRIL 20 MG TAB PO SCH (14:50)
[2019-09-06] MEDS: FUROSEMIDE 40 MG TAB PO SCH (14:50)
[2019-09-06] MEDS: METOPROLOL SUCCINATE (ER) 50 MG TAB.ER.24H PO SCH (14:51)
[2019-09-06] MEDS ORDERED: LORazepam 2 MG/ML INJ IV PRN ×3 (15:47)
[2019-09-06] MEDS ORDERED: FUROSEMIDE 10 MG/ML 4 ML VIAL IV STA (15:51)
--- NOTE | 2019-09-06 15:53 | P.PN ---
Subjective Progress Note Date: 09/06/19 Principal diagnosis: Bilateral lower extremity pain Patient was seen and examined. No acute events overnight. Discussed with RN, patient is much more confused today, asking for some whiskey, still remains pleasant and is able to be redirected. Patient reports improvement in pain in his lower extremities. He denies any chest pain, shortness of breath or palpitations. No nausea or vomiting. No fever or chills. Objective - Vital Signs Vital signs: Vital Signs Temp 98.6 F 09/06/19 13:10 Pulse 68 09/06/19 13:10 Resp 18 09/06/19 13:10 BP 93/49 09/06/19 13:10 Pulse Ox 92 L 09/06/19 13:10 Intake & Output 09/05/19 09/06/19 09/06/19 18:59 06:59 18:59 Intake Total 461.805 120 Output Total 0 Balance 461.805 0 120 Weight 91.3 kg Intake: Intake, IV Titration 101.805 Amount Heparin Sod,Pork in 0.45% 101.805 NaCl 25,000 unit In 0.45 % NaCl 1 250ml.bag @ 18 UNITS/KG/HR 18.37 mls/hr IV .[id number] [facility] Rx#: [id number] Oral 360 120 Output: Urine 0 Stool 0 Other: Voiding Method Urinal Urinal # Voids 0 - Exam General: [non toxic], [no distress], [appears at stated age] Derm: [warm], [dry] Head: [atraumatic], [normocephalic], [symmetric] Eyes: [EOMI], [no lid lag], [anicteric sclera] Mouth: [no lip lesion], [mucus membranes moist] Cardiovascular: [S1S2 reg], [no murmur], [unable to palpate DP or PT pulses bilaterally], Lungs: [Decreased breath sounds bilateral], [no rhonchi, no rales] , [no accessory muscle use] Abdominal: [soft], [ nontender to palpation], [no guarding], [no appreciable organomegaly] Ext: [no gross muscle atrophy], [no edema], [no contractures] Neuro: [no focal neuro deficits] Psych: [Alert], [oriented], [appropriate affect] - Labs CBC & Chem 7: 09/06/19 05:38 09/06/19 05:38 Labs: Abnormal Lab Results - Last 24 Hours (Table) 09/06/19 09/06/19 09/06/19 Range/Units 05:38 05:38 05:38 RBC 2.18 L (4.30-5.90) m/uL Hgb 8.8 L (13.0-17.5) gm/dL Hct 27.4 L (39.0-53.0) % MCV 125.9 H (80.0-100.0) fL MCH 40.6 H (25.0-35.0) pg RDW 15.9 H (11.5-15.5) % Plt Count 144 L (150-450) k/uL Macrocytosis Marked A Retic Count (0.10-1.80) % Sodium 134 L (137-145) mmol/L Creatinine 2.10 H (0.66-1.25) mg/dL Calcium 7.7 L (8.4-10.2) mg/dL Alkaline Phosphatase 28 L (38-126) U/L Total Protein 5.5 L (6.3-8.2) g/dL Total Protein (PEP) 5.1 L (6.2-8.2) g/dL Albumin 2.7 L (3.5-5.0) g/dL 09/06/19 Range/Units 05:38 RBC (4.30-5.90) m/uL Hgb (13.0-17.5) gm/dL Hct (39.0-53.0) % MCV (80.0-100.0) fL MCH (25.0-35.0) pg RDW (11.5-15.5) % Plt Count (150-450) k/uL Macrocytosis Retic Count 2.53 H (0.10-1.80) % Sodium (137-145) mmol/L Creatinine (0.66-1.25) mg/dL Calcium (8.4-10.2) mg/dL Alkaline Phosphatase (38-126) U/L Total Protein (6.3-8.2) g/dL Total Protein (PEP) (6.2-8.2) g/dL Albumin (3.5-5.0) g/dL Assessment and Plan Assessment: Encephalopathy - Possibly related to alcohol withdrawal versus over titration of pain medication and gabapentin -Start thiamine by mouth -CIWA protocol with Ativan as needed for withdrawal symptoms -Discontinue morphine and continue [place] along with gabapentin -Fall precautions Bilateral lower extremity pain, likely due to peripheral vascular disease -Vascular surgery consulted -As per RN, no plans for intervention by vascular surgery -Discontinue heparin and restart Eliquis and aspirin -Start Statin -Pain control with [place] scheduled and Gabapentin -Follow-up PT and OT consultation Diastolic CHF -Echocardiogram shows preserved EF with grade 1 diastolic dysfunction -1 dose of IV Lasix today Macrocytic anemia -B12 low normal and folate within normal limits. Marginally low iron and TIBC. Likely component of iron deficiency. Start iron supplementation along with B12 supplementation. Follow SPEP and methylmalonic acid. Elevated creatinine, unknown baseline -Monitor BMP for now DVT prophylaxis -Heparin infusion
[2019-09-06] MEDS: THIAMINE 100 MG TAB PO SCH (18:35)
[2019-09-06] MEDS: HYDROcodone/APAP 10-325MG 1 EACH TAB PO PRN (18:46)
[2019-09-06] MEDS: ATORVASTATIN 20 MG TAB PO SCH (21:19)
--- NOTE | 2019-09-07 08:32 | P.PN ---
Subjective Progress Note Date: 09/07/19 Patient seen and examined. No complaints. Lower extremity pain much improved. He was confused yesterday, asking for whiskey. No issues overnight per nursing Objective - Vital Signs Vital signs: Vital Signs Temp 98.0 F 09/07/19 04:00 Pulse 61 09/07/19 04:00 Resp 16 09/07/19 04:00 BP 111/56 09/07/19 04:00 Pulse Ox 89 L 09/07/19 04:00 Intake & Output 09/06/19 09/07/19 09/07/19 18:59 06:59 18:59 Intake Total 360 300 Output Total 0 0 Balance 360 300 Weight 79 kg Intake: Oral 360 300 Output: Urine 0 Stool 0 0 Other: Voiding Method Urinal Urinal # Voids 2 - Exam Genitals a pleasant cooperative male in bed eating breakfast. HEENT is normocephalic, atraumatic, poor dentition Heart is regular at this time Lungs are clear bilaterally although decreased breath sounds Abdomen soft, nontender nondistended. Bilateral lower extremity is warm and dry. No clubbing, cyanosis or edema. Improved pain to light touch, motor sensory intact. Adequate capillary refill. Nonpalpable pedal pulses. No wounds - Labs CBC & Chem 7: 09/06/19 05:38 09/06/19 05:38 Labs: Abnormal Lab Results - Last 24 Hours (Table) 09/06/19 09/06/19 Range/Units 05:38 05:38 Retic Count 2.53 H (0.10-1.80) % Total Protein (PEP) 5.1 L (6.2-8.2) g/dL Assessment and Plan Assessment: #1: Bilateral lower extremity peripheral arterial occlusive disease #2: Stephie 3/4 peripheral arterial disease #3: Bilateral lower extremity pain, likely neuropathy component #4: Alcohol use #5: Tobacco abuse Plan: At this time there appears to be nothing acute causing the patient's lower extremity pains which are much improved from admission. Continue pain control. Plan for outpatient angiogram and possible planning for revascularization for his lifestyle limiting claudication. Encouraged smoking cessation. Continue aspirin and statin medications
[2019-09-07] MEDS: ASPIRIN 81 MG PO SCH (08:59)
[2019-09-07] MEDS: ATORVASTATIN 80 MG TAB PO SCH (08:59)
[2019-09-07] MEDS: THIAMINE 100 MG TAB PO SCH ×2 (08:59→17:53)
[2019-09-07] MEDS: CYANOCOBALAMIN 500 MCG TAB PO SCH (08:59)
[2019-09-07] MEDS: amLODIPine 10 MG TAB PO SCH (08:59)
[2019-09-07] MEDS: METOPROLOL SUCCINATE (ER) 50 MG TAB.ER.24H PO SCH (08:59)
[2019-09-07] MEDS: PANTOPRAZOLE 40 MG TABLET PO SCH (09:00)
[2019-09-07] MEDS: FUROSEMIDE 40 MG TAB PO SCH (09:00)
[2019-09-07] MEDS: LORATADINE 10 MG TAB PO SCH (09:00)
[2019-09-07] MEDS: GABAPENTIN 300 MG CAP PO SCH ×2 (09:00→21:28)
[2019-09-07] MEDS: APIXABAN 5 MG TAB PO SCH ×2 (09:00→21:27)
[2019-09-07] MEDS: LISINOPRIL 20 MG TAB PO SCH (12:10)
[2019-09-07] MEDS: FERROUS SULFATE 325 MG TAB PO SCH (12:11)
--- NOTE | 2019-09-07 16:24 | P.PN ---
Subjective Progress Note Date: 09/07/19 Principal diagnosis: Bilateral lower extremity pain Patient was seen and examined. No acute events overnight. Patient's mentation is considerably improved since yesterday. Patient reports improvement in his bilateral lower extremity pain. He reports some lower abdominal discomfort and inability to urinate. He denies any chest pain, shortness of breath or palpitations. No nausea or vomiting. No fever or chills. Objective - Vital Signs Vital signs: Vital Signs Temp 98.0 F 09/07/19 11:29 Pulse 89 09/07/19 11:29 Resp 18 09/07/19 11:29 BP 113/55 09/07/19 11:29 Pulse Ox 92 L 09/07/19 11:29 Intake & Output 09/06/19 09/07/19 09/07/19 18:59 06:59 18:59 Intake Total 360 300 240 Output Total 0 0 1100 Balance 360 300 -860 Weight 79 kg Intake: Oral 360 300 240 Output: Urine 0 1100 Straight 1100 Stool 0 0 Other: Voiding Method Urinal Urinal # Voids 2 - Exam General: [non toxic], [no distress], [appears at stated age] Derm: [warm], [dry] Head: [atraumatic], [normocephalic], [symmetric] Eyes: [EOMI], [no lid lag], [anicteric sclera] Mouth: [no lip lesion], [mucus membranes moist] Cardiovascular: [S1S2 reg], [no murmur], [unable to palpate DP or PT pulses bilaterally], Lungs: [Decreased breath sounds bilateral], [no rhonchi, no rales] , [no accessory muscle use] Abdominal: [soft], [suprapubic tenderness], [no guarding], [no appreciable organomegaly] Ext: [no gross muscle atrophy], [no edema], [no contractures] Neuro: [no focal neuro deficits] Psych: [Alert], [oriented], [appropriate affect] - Labs CBC & Chem 7: 09/06/19 05:38 09/06/19 05:38 Assessment and Plan Assessment: Diastolic CHF exacerbation -Echocardiogram shows preserved EF with grade 1 diastolic dysfunction - start Lasix 40 mg IV twice a day, repeat chest x-ray tomorrow morning Urinary retention -[place] catheter Encephalopathy - Possibly related to alcohol withdrawal versus over titration of pain medication and gabapentin -Start thiamine by mouth -CIWA protocol with Ativan as needed for withdrawal symptoms -Discontinue morphine and continue [place] along with gabapentin -Fall precautions Bilateral lower extremity pain, likely due to peripheral vascular disease -Vascular surgery consulted -As per RN, no plans for intervention by vascular surgery -Discontinue heparin and restart Eliquis and aspirin -Start Statin -Pain control with [place] scheduled and Gabapentin -Follow-up PT and OT consultation Macrocytic anemia -B12 low normal and folate within normal limits. Marginally low iron and TIBC. Likely component of iron deficiency. Start iron supplementation along with B12 supplementation. Follow SPEP and methylmalonic acid. Elevated creatinine, unknown baseline -Monitor BMP for now DVT prophylaxis -Heparin infusion
[2019-09-07] MEDS: HYDROcodone/APAP 10-325MG 1 EACH TAB PO PRN (17:55)
[2019-09-07] MEDS: ATORVASTATIN 20 MG TAB PO SCH (21:27)
[2019-09-07] MEDS: FUROSEMIDE 10 MG/ML 4 ML VIAL IV SCH (21:28)
[2019-09-08] MEDS: HYDROcodone/APAP 10-325MG 1 EACH TAB PO PRN (00:33)
[2019-09-08 05:13] LABS: Glucose,Whole Blood 109 mg/dL (75-99)
[2019-09-08] MEDS: FUROSEMIDE 10 MG/ML 4 ML VIAL IV SCH ×2 (08:52→20:54)
[2019-09-08] MEDS: LORATADINE 10 MG TAB PO SCH (08:52)
[2019-09-08] MEDS: ATORVASTATIN 80 MG TAB PO SCH (08:54)
[2019-09-08] MEDS: ASPIRIN 81 MG PO SCH (08:54)
[2019-09-08] MEDS: GABAPENTIN 300 MG CAP PO SCH ×2 (08:54→20:54)
[2019-09-08] MEDS: METOPROLOL SUCCINATE (ER) 50 MG TAB.ER.24H PO SCH (08:54)
[2019-09-08] MEDS: APIXABAN 5 MG TAB PO SCH ×2 (08:54→20:54)
[2019-09-08] MEDS: CYANOCOBALAMIN 500 MCG TAB PO SCH (08:54)
[2019-09-08] MEDS: PANTOPRAZOLE 40 MG TABLET PO SCH (08:55)
[2019-09-08] MEDS: FERROUS SULFATE 325 MG TAB PO SCH (08:55)
[2019-09-08] MEDS: LISINOPRIL 20 MG TAB PO SCH (08:55)
[2019-09-08 11:48] LABS: Basophils % (A) 0 %; Eosinophils # (A) 0.1 k/uL (0-0.7); Eosinophils % (A) 1 %; HCT 24.8 % (39.0-53.0); HGB 8.1 gm/dL (13.0-17.5); Hypochromasia Slight; Lymphocytes # (A) 0.8 k/uL (1.0-4.8); Lymphocytes % (A) 11 %; MCH 39.6 pg (25.0-35.0); MCHC 32.5 g/dL (31.0-37.0); MCV 121.6 fL (80.0-100.0); Macrocytosis Marked; Mean Platelet Volume 8.4; Monocytes # (A) 0.5 k/uL (0-1.0); Monocytes % (A) 6 %; Neutrophils # (A) 6.1 k/uL (1.3-7.7); Neutrophils % (A) 80 %; Platelet Count 184 k/uL (150-450); RBC 2.04 m/uL (4.30-5.90); RDW 15.9 % (11.5-15.5); WBC 7.7 k/uL (3.8-10.6)
[2019-09-08 12:24] LABS: Albumin 2.5 g/dL (3.5-5.0); Calcium 7.5 mg/dL (8.4-10.2); Potassium 3.7 mmol/L (3.5-5.1); Total Bilirubin 0.6 mg/dL (0.2-1.3); Total Protein 5.3 g/dL (6.3-8.2)
--- NOTE | 2019-09-08 12:45 | XR ---
EXAMINATION TYPE: XR abdomen 2V DATE OF EXAM: 09/08/2019 CLINICAL DATA: 68-year-old male shortness of breath, PHH COMPARISON: None FINDINGS: Patchy bibasilar opacities persist. Median sternotomy wires. Some surgical clips just below the GE j unction. No evidence for free intraperitoneal air. Couple prominent air-filled small bowel loops in the left side of the abdomen. No abnormally dilated small bowel or differential air-fluid levels seen. Scattered moderate stool. Phleboliths within the pelvis and vascular calcifications. IMPRESSION: No evidence for free air or bowel obstruction. Moderate stool burden. Patchy bibasilar infiltrates.
[2019-09-08 13:29] LABS: Albumin 2.6 g/dL (3.80-4.90); Gamma Globulin 0.78 g/dL (0.70-1.50)
[2019-09-08] MEDS: THIAMINE 100 MG TAB PO SCH ×2 (16:02→18:26)
--- NOTE | 2019-09-08 16:25 | P.PN ---
Subjective Progress Note Date: 09/08/19 Principal diagnosis: Bilateral lower extremity pain Patient was seen and examined. No acute events overnight. Patient's mentation is considerably improved since yesterday. Patient reports continued pain in his bilateral lower extremities, burning in nature, 6 out of 10 in severity. Resolution of abdominal discomfort after Rooney catheter insertion yesterday. He denies any chest pain, shortness of breath or palpitations. No nausea or vomiting. No fever or chills. His oxygen requirements have increased and is now on 5 L NC. Discussed with RN, borderline BP of 90 SBP though patient asymptomatic. Objective - Vital Signs Vital signs: Vital Signs Temp 98.7 F 09/08/19 15:30 Pulse 74 09/08/19 15:30 Resp 18 09/08/19 15:30 BP 96/60 09/08/19 15:30 Pulse Ox 91 L 09/08/19 15:35 Intake & Output 09/07/19 09/08/19 09/08/19 18:59 06:59 18:59 Intake Total 240 300 650 Output Total 1500 1100 1000 Balance -1260 -800 -350 Weight 77 kg Intake: Oral 240 300 650 Output: Urine 1500 1100 1000 Straight 1100 Stool 0 Other: Voiding Method Indwelling Catheter Indwelling Catheter - Exam General: [non toxic], [no distress on 5 L NC], [appears at stated age] Derm: [warm], [dry] Head: [atraumatic], [normocephalic], [symmetric] Eyes: [EOMI], [no lid lag], [anicteric sclera] Mouth: [no lip lesion], [mucus membranes moist] Cardiovascular: [S1S2 reg], [no murmur], [unable to palpate DP or PT pulses bilaterally], Lungs: [Decreased breath sounds bilateral], [no rhonchi, no rales] , [no accessory muscle use] Abdominal: [soft], [nontender to palpation], [no guarding], [no appreciable organomegaly] Ext: [no gross muscle atrophy], [no edema], [no contractures] Neuro: [no focal neuro deficits] Psych: [Alert], [oriented], [appropriate affect] - Labs CBC & Chem 7: 09/08/19 11:37 09/08/19 11:37 Labs: Abnormal Lab Results - Last 24 Hours (Table) 09/06/19 09/08/19 09/08/19 Range/Units 05:38 05:11 11:37 RBC 2.04 L (4.30-5.90) m/uL Hgb 8.1 L (13.0-17.5) gm/dL Hct 24.8 L (39.0-53.0) % MCV 121.6 H (80.0-100.0) fL MCH 39.6 H (25.0-35.0) pg RDW 15.9 H (11.5-15.5) % Lymphocytes # 0.8 L (1.0-4.8) k/uL Macrocytosis Marked A Sodium (137-145) mmol/L BUN (9-20) mg/dL Creatinine (0.66-1.25) mg/dL Glucose (74-99) mg/dL POC Glucose (mg/dL) 109 H (75-99) mg/dL Calcium (8.4-10.2) mg/dL AST (17-59) U/L Alkaline Phosphatase (38-126) U/L Troponin I (0.000-0.034) ng/mL Total Protein (6.3-8.2) g/dL Albumin (3.5-5.0) g/dL Albumin (PEP) 2.60 L (3.80-4.90) g/dL 09/08/19 09/08/19 Range/Units 11:37 11:37 RBC (4.30-5.90) m/uL Hgb (13.0-17.5) gm/dL Hct (39.0-53.0) % MCV (80.0-100.0) fL MCH (25.0-35.0) pg RDW (11.5-15.5) % Lymphocytes # (1.0-4.8) k/uL Macrocytosis Sodium 136 L (137-145) mmol/L BUN 29 H (9-20) mg/dL Creatinine 2.35 H (0.66-1.25) mg/dL Glucose 113 H (74-99) mg/dL POC Glucose (mg/dL) (75-99) mg/dL Calcium 7.5 L (8.4-10.2) mg/dL AST 69 H (17-59) U/L Alkaline Phosphatase 31 L (38-126) U/L Troponin I 0.036 H* (0.000-0.034) ng/mL Total Protein 5.3 L (6.3-8.2) g/dL Albumin 2.5 L (3.5-5.0) g/dL Albumin (PEP) (3.80-4.90) g/dL Assessment and Plan Assessment: Diastolic CHF exacerbation -Echocardiogram shows preserved EF with grade 1 diastolic dysfunction - start Lasix 40 mg IV twice a day, repeat chest x-ray tomorrow morning Troponin elevation and hypotension -Troponin 0.036 with EKG showing sinus rhythm with T-wave abnormalities. SBP as low as 90. Echocardiogram as above. -Trend troponin/EKG to rule out ACS -Continue aspirin, Lipitor and metoprolol. -Discontinue amlodipine due to hypotension -Follow cardiology consultation Urinary retention -Rooney catheter Toxic metabolic Encephalopathy - Possibly related to alcohol withdrawal versus over titration of pain medication and gabapentin -Start thiamine by mouth -CIWA protocol with Ativan as needed for withdrawal symptoms -Discontinue morphine and continue [place] along with gabapentin -Fall precautions Bilateral lower extremity pain, likely due to peripheral vascular disease -Vascular surgery consulted -As per RN, no plans for intervention by vascular surgery -Discontinue heparin and restart Eliquis and aspirin -Start Statin -Pain control with [place] scheduled and Gabapentin -Follow-up PT and OT consultation Macrocytic anemia -B12 low normal and folate within normal limits. Marginally low iron and TIBC. Likely component of iron deficiency. Start iron supplementation along with B12 supplementation. Follow SPEP and methylmalonic acid. Elevated creatinine, unknown baseline -Monitor BMP for now DVT prophylaxis -Heparin infusion
[2019-09-08] MEDS: ATORVASTATIN 20 MG TAB PO SCH (20:54)
--- NOTE | 2019-09-09 00:35 | P.PN ---
Progress Note - Text Progress Note Date: 09/09/19 notified by RN regarding troponin results mild elevation , in light of CKD III. and patient is asymptomatic will continue to monitor await cardio evaluation
[2019-09-09] MEDS: FUROSEMIDE 10 MG/ML 4 ML VIAL IV SCH ×2 (08:52→09:39)
[2019-09-09] MEDS: PANTOPRAZOLE 40 MG TABLET PO SCH (08:52)
[2019-09-09] MEDS: GABAPENTIN 300 MG CAP PO SCH ×2 (08:53→20:40)
[2019-09-09] MEDS: CYANOCOBALAMIN 500 MCG TAB PO SCH (08:53)
[2019-09-09] MEDS: LORATADINE 10 MG TAB PO SCH (08:53)
[2019-09-09] MEDS: ASPIRIN 81 MG PO SCH (08:53)
[2019-09-09] MEDS: APIXABAN 5 MG TAB PO SCH ×2 (08:53→20:38)
[2019-09-09] MEDS: THIAMINE 100 MG TAB PO SCH ×2 (08:53→17:55)
[2019-09-09 09:33] LABS: Anisocytosis Slight; Basophils % (A) 0 %; Eosinophils # (A) 0.1 k/uL (0-0.7); Eosinophils % (A) 2 %; HCT 24.1 % (39.0-53.0); HGB 7.9 gm/dL (13.0-17.5); Lymphocytes # (A) 1.1 k/uL (1.0-4.8); Lymphocytes % (A) 16 %; MCH 39.2 pg (25.0-35.0); MCHC 32.8 g/dL (31.0-37.0); MCV 119.7 fL (80.0-100.0); Macrocytosis Marked; Mean Platelet Volume 8.6; Monocytes # (A) 0.6 k/uL (0-1.0); Monocytes % (A) 8 %; Neutrophils % (A) 72 %; Platelet Count 211 k/uL (150-450); RBC 2.01 m/uL (4.30-5.90); RDW 16.9 % (11.5-15.5); WBC 6.9 k/uL (3.8-10.6)
[2019-09-09] MEDS: LISINOPRIL 20 MG TAB PO SCH (09:40)
[2019-09-09 09:46] LABS: Albumin 2.5 g/dL (3.5-5.0); Calcium 7.1 mg/dL (8.4-10.2); Potassium 3.2 mmol/L (3.5-5.1); Total Bilirubin 0.5 mg/dL (0.2-1.3); Total Protein 5.2 g/dL (6.3-8.2)
--- NOTE | 2019-09-09 09:58 | P.NPCON ---
History of Present Illness - Reason for Consult acute renal failure - History of Present Illness Reason for consultation: Acute kidney injury History of present illness: Patient is a 68-year-old male seen in renal consultation for acute kidney injury. Patient presented to the hospital on 09/04/2019 with lower extremity edema and pain. He underwent CT angiogram which revealed peripheral vascular disease. He's being followed by vascular surgery. He is also maintained on IV Lasix 40 mg twice daily. He has a Rooney catheter and is nonoliguric. Patient's creatinine was 1.4 on admission and is up 2.35 today. Unknown as to what his baseline renal function is. He denies regular use of nonsteroidals. No history of diabetes. Denies family history of renal disease. No hematuria or dysuria. His blood pressure has been running low and was 90/54 this morning. Echocardiogram revealed diastolic CHF. He is also on lisinopril 20 mg once daily. Oral intake has been fair. No vomiting or diarrhea. No abdominal pain. He does state that his lower extremities are tender to touch. Denies any malaika a. Vital signs are stable. General: The patient appeared well nourished and normally developed. HEENT: Head exam is unremarkable. Neck is without jugular venous distension. LUNGS: Lungs are clear to auscultation and percussion. Breath sounds decreased. HEART: Rate and Rhythm are regular. ABDOMEN: Soft, nontender. EXTREMITITES: No clubbing, cyanosis, or edema. Past Medical History Past Medical History: Heart Failure, Hypertension, Myocardial Infarction ([place]), Pulmonary Embolus ([place]) Last Myocardial Infarction Date:: UNSURE History of Any Multi-Drug Resistant Organisms: None Reported Past Surgical History: Heart Catheterization With Stent Date of Last Stent Placement:: UNSURE Past Psychological History: No Psychological Hx Reported Smoking Status: Current every day smoker Past Alcohol Use History: Daily Past Drug Use History: None Reported - Past Family History Mother History Unknown: Yes Medications and Allergies Home Medications Medication Instructions Recorded Confirmed Type Aspirin EC [Ecotrin Low Dose] 81 mg PO DAILY 09/04/19 09/04/19 History Apixaban [Eliquis] 5 mg PO BID 09/05/19 09/05/19 History Clopidogrel [Plavix] 75 mg PO DAILY 09/05/19 09/05/19 History Furosemide [Lasix] 40 mg PO DAILY 09/05/19 09/05/19 History Gabapentin [Neurontin] 300 mg PO TID 09/05/19 09/05/19 History Lisinopril 20 mg PO DAILY 09/05/19 09/05/19 History Loratadine 10 mg PO DAILY 09/05/19 09/05/19 History Metoprolol Succinate (ER) [Toprol 1 tab PO DAILY 09/05/19 09/05/19 History XL] Montelukast [Singulair] 10 mg PO HS 09/05/19 09/05/19 History Omeprazole [PriLOSEC] 40 mg PO BID 09/05/19 09/05/19 History Simvastatin 40 mg PO HS 09/05/19 09/05/19 History amLODIPine [Norvasc] 10 mg PO DAILY 09/05/19 09/05/19 History traMADol HCL [Ultram] 1 tab PO QID PRN 09/05/19 09/05/19 History Allergies Allergy/AdvReac Type Severity Reaction Status Date / Time No Known Allergies Allergy Verified 09/05/19 14:22 Physical Exam Vitals: Vital Signs Temp Pulse Resp BP Pulse Ox 09/09/19 08:58 82 90/54 09/09/19 08:50 20 09/09/19 05:00 98.1 F 79 20 95/54 93 L 09/08/19 21:00 98.9 F 80 20 109/54 92 L 09/08/19 17:00 20 09/08/19 15:35 91 L 09/08/19 15:30 98.7 F 74 18 96/60 88 L 09/08/19 14:25 92 22 135/52 92 L 09/08/19 10:30 83 22 108/65 91 L 09/08/19 10:25 99.6 F 76 20 99/60 93 L Intake and Output 09/08/19 09/09/19 09/09/19 22:59 06:59 14:59 Intake Total 300 Output Total 1000 1600 1600 Balance -1000 -1300 -1600 Intake: Oral 300 Output: Urine 1000 1600 1600 Straight 1600 1600 Stool 0 Other: Voiding Method Indwelling Catheter Indwelling Catheter # Voids 2 # Bowel Movements 1 Weight 74.5 kg Results - Lab Results Most recent lab results Calcium 7.5 mg/dL (8.4-10.2) L 09/08/19 11:37 09/09/19 09:03 09/08/19 11:37 Assessment and Plan Plan: Assessment: 1. Acute kidney injury secondary to ATN secondary to hypotension and diuresis. He also received IV contrast on September 03. Creatinine up to 2.35 today. Unknown baseline renal function. 2. Peripheral vascular disease. Vascular surgery following. 3. Chronic diastolic CHF. 4. Alcohol abuse. 5. History of tobacco abuse. 6. Hypotension secondary to lisinopril and diuresis. Plan: Discontinue lisinopril. Hold Lasix. Check UA. Check renal ultrasound. Avoid nephrotoxins. Continue to monitor renal function and urine output. Thank you for the consultation. I will continue to follow the patient with you during his hospital stay.
[2019-09-09 10:08] LABS: Magnesium 0.8 mg/dL (1.6-2.3)
[2019-09-09 10:13] LABS: Poikilocytosis (M) Present
--- NOTE | 2019-09-09 10:34 | P.PN ---
Subjective Progress Note Date: 09/09/19 Principal diagnosis: Leg pain Patient still having generalized pains and aches in the arms, legs, right groin areas. He still feels significantly weak and barely able to get up out of bed. Has a slight cough, no shortness of breath. Objective - Vital Signs Vital signs: Vital Signs Temp 98.1 F 09/09/19 05:00 Pulse 82 09/09/19 08:58 Resp 20 09/09/19 08:50 BP 90/54 09/09/19 08:58 Pulse Ox 93 L 09/09/19 05:00 Intake & Output 09/08/19 09/09/19 09/09/19 18:59 06:59 18:59 Intake Total 650 300 Output Total 1999 1600 1600 Balance -1350 -1300 -1600 Weight 74.5 kg Intake: Oral 650 300 Output: Urine 1999 1600 1600 Straight 1600 1600 Stool 0 Other: Voiding Method Indwelling Catheter Indwelling Catheter Indwelling Catheter # Voids 2 # Bowel Movements 1 - Exam Constitutional: No acute distress, conversant, pleasant Eyes:Anicteric sclerae, moist conjunctiva, no lid-lag, PERRLA, ENMT: Oropharynx clear, no erythema, exudates Neck: Supple, FROM, no masses, or JVD, No carotid bruits, No thyromegaly Lungs: Clear to auscultation, Clear to percussion, Normal respiratory effort, no accessory muscle use Cardiovascular: Heart regular in rate and rhythm, No murmurs, gallops, or rubs, No peripheral edema Abdominal: Soft, Nontender, no guarding, rebound or rigidity, Normoactive bowel sounds, No hepatomegaly, No splenomegaly, No palpable mass Skin: Normal temperature, tone, texture, turgor, no induration, No subcutaneous nodules, No rash, lesions, No ulcers Extremities: No digital cyanosis, No clubbing, Pedal pulses intact and symmetrical, Radial pulses intact and symmetrical, No calf tenderness Psychiatric: Alert and oriented to person, place and time, appropriate affect, intact judgement Neuro: Muscles Strength 5/5 in all 4 extremities, Sensation to light touch grossly present throughout, Cranial nerves II-XII grossly intact, no focal sensory deficits - Labs CBC & Chem 7: 09/09/19 09:03 09/09/19 09:03 Labs: Abnormal Lab Results - Last 24 Hours (Table) 09/06/19 09/06/19 09/08/19 Range/Units 05:38 05:38 11:37 RBC 2.04 L (4.30-5.90) m/uL Hgb 8.1 L (13.0-17.5) gm/dL Hct 24.8 L (39.0-53.0) % MCV 121.6 H (80.0-100.0) fL MCH 39.6 H (25.0-35.0) pg RDW 15.9 H (11.5-15.5) % Lymphocytes # 0.8 L (1.0-4.8) k/uL Macrocytosis Marked A Sodium (137-145) mmol/L Potassium (3.5-5.1) mmol/L BUN (9-20) mg/dL Creatinine (0.66-1.25) mg/dL Glucose (74-99) mg/dL Calcium (8.4-10.2) mg/dL Magnesium (1.6-2.3) mg/dL AST (17-59) U/L Alkaline Phosphatase (38-126) U/L Troponin I (0.000-0.034) ng/mL Total Protein (6.3-8.2) g/dL Albumin (3.5-5.0) g/dL Albumin (PEP) 2.60 L (3.80-4.90) g/dL Methylmalonic Acid 0.50 H (<0.40) umol/L 09/08/19 09/08/19 09/08/19 Range/Units 11:37 11:37 23:35 RBC (4.30-5.90) m/uL Hgb (13.0-17.5) gm/dL Hct (39.0-53.0) % MCV (80.0-100.0) fL MCH (25.0-35.0) pg RDW (11.5-15.5) % Lymphocytes # (1.0-4.8) k/uL Macrocytosis Sodium 136 L (137-145) mmol/L Potassium (3.5-5.1) mmol/L BUN 29 H (9-20) mg/dL Creatinine 2.35 H (0.66-1.25) mg/dL Glucose 113 H (74-99) mg/dL Calcium 7.5 L (8.4-10.2) mg/dL Magnesium (1.6-2.3) mg/dL AST 69 H (17-59) U/L Alkaline Phosphatase 31 L (38-126) U/L Troponin I 0.036 H* 0.041 H* (0.000-0.034) ng/mL Total Protein 5.3 L (6.3-8.2) g/dL Albumin 2.5 L (3.5-5.0) g/dL Albumin (PEP) (3.80-4.90) g/dL Methylmalonic Acid (<0.40) umol/L 09/09/19 09/09/19 Range/Units 09:03 09:03 RBC 2.01 L (4.30-5.90) m/uL Hgb 7.9 L (13.0-17.5) gm/dL Hct 24.1 L (39.0-53.0) % MCV 119.7 H (80.0-100.0) fL MCH 39.2 H (25.0-35.0) pg RDW 16.9 H (11.5-15.5) % Lymphocytes # (1.0-4.8) k/uL Macrocytosis Marked A Sodium 134 L (137-145) mmol/L Potassium 3.2 L (3.5-5.1) mmol/L BUN 32 H (9-20) mg/dL Creatinine 2.34 H (0.66-1.25) mg/dL Glucose 117 H (74-99) mg/dL Calcium 7.1 L (8.4-10.2) mg/dL Magnesium 0.8 L* (1.6-2.3) mg/dL AST 64 H (17-59) U/L Alkaline Phosphatase 29 L (38-126) U/L Troponin I (0.000-0.034) ng/mL Total Protein 5.2 L (6.3-8.2) g/dL Albumin 2.5 L (3.5-5.0) g/dL Albumin (PEP) (3.80-4.90) g/dL Methylmalonic Acid (<0.40) umol/L Assessment and Plan Plan: Acute on chronic diastolic CHF exacerbation -Echocardiogram shows preserved EF with grade 1 diastolic dysfunction -Lasix held due to acute renal failure Troponin elevation and hypotension -Discussed with cardiology service, no need for intervention at this point. -Continue aspirin, Lipitor and metoprolol. -Discontinue amlodipine due to hypotension Urinary retention -Rooney catheter Toxic metabolic Encephalopathy - Possibly related to alcohol withdrawal versus over titration of pain medication and gabapentin -Start thiamine by mouth -CIWA protocol with Ativan as needed for withdrawal symptoms -Continue [place] along with gabapentin -Fall precautions Bilateral lower extremity pain, likely due to peripheral vascular disease -Vascular surgery consulted -Continue Eliquis and aspirin -Continue Statin -Pain control with [place] scheduled and Gabapentin -Follow-up PT and OT consultation Macrocytic anemia -B12 low normal and folate within normal limits. Marginally low iron and TIBC. High methymalonic acid. -Likely component of iron deficiency and vit B12 deficiency. -Started iron supplementation along with B12 supplementation. -SPEP showing possible spike on the beta region, consult hematology. COSME Discontinue lisinopril. Hold Lasix. Check UA. Check renal ultrasound. Avoid nephrotoxins. Continue to monitor renal function and urine output. Nephrology consulted DVT prophylaxis On anticoagulation
[2019-09-09] MEDS: METOPROLOL SUCCINATE (ER) 50 MG TAB.ER.24H PO SCH (10:43)
[2019-09-09] MEDS ORDERED: Magnesium Replacement Protocol 1 EACH MISC MISCELLANE PRN (10:46)
--- NOTE | 2019-09-09 10:55 | P.CRDCN ---
History of Present Illness History of present illness: HISTORY OF PRESENTING ILLNESS This is a pleasant 68-year-old male past medical history significant for coronary artery disease with myocardial infarction approximately 15 years ago and recent PCI in the last 6 months per the patient, history of PE and DVT, dyslipidemia, hypertension, chronic nicotine dependence and daily alcohol intake. He states he has been noncompliant with all of his medications in the previous 3 months because he did not feel like going to the store. He states he sees a director of individual giving in [facility] but is unsure of his name. He states he last saw him about 6 months ago. We have been asked to see in consultation for abnormal troponin and hypotension. He is seen and examined sitting up in bed eating breakfast. He initially presented to the hospital with symptoms of bilateral lower extremity pain. He denies any symptoms of chest pain. He describes exertional dyspnea that has been ongoing for sometime now. He denies PND or orthpnea. He is somewhat of a poor historian, most information is obtained from the nursing staff and medical record. DIAGNOSTICS EKG reveals sinus mechanism with ST abnormalities in the inferior lateral leads. No old for comparison. Chest xray on admission revealed mild pulmonary vascular congestion. Repeat 3 days ago reveals small bilateral effusions with basilar airspace disease Laboratory reviewed, WBC 6.9, hemoglobin 7.9, platelets 211, sodium 134, potassium 3.2, creatinine 2.34 with a GFR of 28, magnesium 0.8, troponin 0.036, 0.034 and 0.041, NT proBNP on admission September 03 1470, TSH 2.17 and Covid 19 negative Current cardiac medications include aspirin 81 mg daily, Eliquis 5 mg twice a day, Lasix 40 mg daily, lisinopril 20 mg daily, Toprol 50 mg daily, simvastatin 40 mg daily, amlodipine 10 mg daily and Plavix 75 mg daily. REVIEW OF SYSTEMS At the time of my exam: CONSTITUTIONAL: Denies fever or chills. CARDIOVASCULAR: Complains of exertional dyspnea. Denies chest pain, orthopnea, PND or palpitations. RESPIRATORY: Denies cough. GASTROINTESTINAL: Denies abdominal pain, diarrhea, constipation, nausea or vomiting. MUSCULOSKELETAL: Denies myalgias. NEUROLOGIC: Denies numbness, tingling or weakness. ENDOCRINE: Denies fatigue, weight change, polydipsia or polyurina. GENITOURINARY: Denies burning, hematuria or urgency with micturation. HEMATOLOGIC: Denies history of anemia or bleeding. PHYSICAL EXAMINATION Blood pressure 90/54 heart rate 82 afebrile and maintaining oxygen saturation on room air. CONSTITUTIONAL: No apparent distress. HEENT: Head is normocephalic. Pupils are equal, round. Sclerae anicteric. Mucous membranes of the mouth are moist. No JVD. No carotid bruit. CHEST EXAMINATION: Faint expiratory wheezes, no rales or rhonchi. No chest wall tenderness is noted on palpation or with deep breathing. HEART EXAMINATION: Regular rate and rhythm. S1, S2 heard. Systolic ejection murmur at the left sternal border, no gallops or rub. ABDOMEN: Soft, nontender. Positive bowel sounds. EXTREMITIES: 2+ peripheral pulses, no lower extremity edema and no calf tenderness. NEUROLOGIC EXAMINATION: Patient is awake, alert and oriented. ASSESSMENT Acute on chronic diastolic heart failure, improved Acute kidney injury, baseline unknown Elevated troponin secondary to renal function. Flat trend with no symptoms of ACS. Anemia, could be causing his exertional shortness of breath. Coronary artery disease s/p PCI, exact details unknown Hypomagnesemia History of DVT and PE on swedger anti-coagulation. He denies prior history of a-fib. Dyslipidemia Hypertension with episodes of hypotension Non-compliance Chronic nicotine and alcohol dependence PLAN Obtain records from recent PCI [facility]. Agree with holding Lasix as he appears to be euvolemic today. Decrease Toprol to 25 mg daily secondary to hypotension. Replace magnesium per protocol. Follow renal function and electrolytes in the morning. Further recommendations to follow based upon clinical course. Thank you kindly for this consultation. Nurse Practitioner note has been reviewed, I agree with a documented findings and plan of care. Patient was seen and examined. Past Medical History Past Medical History: Heart Failure, Hypertension, Myocardial Infarction ([place]), Pulmonary Embolus ([place]) Last Myocardial Infarction Date:: UNSURE History of Any Multi-Drug Resistant Organisms: None Reported Past Surgical History: Heart Catheterization With Stent Date of Last Stent Placement:: UNSURE Past Psychological History: No Psychological Hx Reported Smoking Status: Current every day smoker Past Alcohol Use History: Daily Past Drug Use History: None Reported - Past Family History Mother History Unknown: Yes Medications and Allergies Home Medications Medication Instructions Recorded Confirmed Type Aspirin EC [Ecotrin Low Dose] 81 mg PO DAILY 09/04/19 09/04/19 History Apixaban [Eliquis] 5 mg PO BID 09/05/19 09/05/19 History Clopidogrel [Plavix] 75 mg PO DAILY 09/05/19 09/05/19 History Furosemide [Lasix] 40 mg PO DAILY 09/05/19 09/05/19 History Gabapentin [Neurontin] 300 mg PO TID 09/05/19 09/05/19 History Lisinopril 20 mg PO DAILY 09/05/19 09/05/19 History Loratadine 10 mg PO DAILY 09/05/19 09/05/19 History Metoprolol Succinate (ER) [Toprol 1 tab PO DAILY 09/05/19 09/05/19 History XL] Montelukast [Singulair] 10 mg PO HS 09/05/19 09/05/19 History Omeprazole [PriLOSEC] 40 mg PO BID 09/05/19 09/05/19 History Simvastatin 40 mg PO HS 09/05/19 09/05/19 History amLODIPine [Norvasc] 10 mg PO DAILY 09/05/19 09/05/19 History traMADol HCL [Ultram] 1 tab PO QID PRN 09/05/19 09/05/19 History Allergies Allergy/AdvReac Type Severity Reaction Status Date / Time No Known Allergies Allergy Verified 09/05/19 14:22 Physical Exam Vitals: Vital Signs Temp Pulse Resp BP Pulse Ox 09/09/19 08:58 82 90/54 09/09/19 08:50 20 09/09/19 05:00 98.1 F 79 20 95/54 93 L 09/08/19 21:00 98.9 F 80 20 109/54 92 L 09/08/19 17:00 20 09/08/19 15:35 91 L 09/08/19 15:30 98.7 F 74 18 96/60 88 L 09/08/19 14:25 92 22 135/52 92 L Intake and Output 09/08/19 09/09/19 09/09/19 22:59 06:59 14:59 Intake Total 300 Output Total 1000 1600 1600 Balance -1000 -1300 -1600 Intake: Oral 300 Output: Urine 1000 1600 1600 Straight 1600 1600 Stool 0 Other: Voiding Method Indwelling Catheter Indwelling Catheter # Voids 2 # Bowel Movements 1 Weight 74.5 kg Results 09/09/19 09:03 09/09/19 09:03 Cardiac Enzymes 09/08/19 09/08/19 09/08/19 Range/Units 11:37 11:37 17:12 AST 69 H (17-59) U/L Troponin I 0.036 H* 0.034 (0.000-0.034) ng/mL 09/08/19 09/09/19 Range/Units 23:35 09:03 AST 64 H (17-59) U/L Troponin I 0.041 H* (0.000-0.034) ng/mL CBC 09/08/19 09/09/19 Range/Units 11:37 09:03 WBC 7.7 6.9 (3.8-10.6) k/uL RBC 2.04 L 2.01 L (4.30-5.90) m/uL Hgb 8.1 L 7.9 L (13.0-17.5) gm/dL Hct 24.8 L 24.1 L (39.0-53.0) % Plt Count 184 211 (150-450) k/uL Comprehensive Metabolic Panel 09/08/19 09/09/19 Range/Units 11:37 09:03 Sodium 136 L 134 L (137-145) mmol/L Potassium 3.7 3.2 L (3.5-5.1) mmol/L Chloride 103 101 (98-107) mmol/L Carbon Dioxide 27 28 (22-30) mmol/L BUN 29 H 32 H (9-20) mg/dL Creatinine 2.35 H 2.34 H (0.66-1.25) mg/dL Glucose 113 H 117 H (74-99) mg/dL Calcium 7.5 L 7.1 L (8.4-10.2) mg/dL AST 69 H 64 H (17-59) U/L ALT 19 18 (4-49) U/L Alkaline Phosphatase 31 L 29 L (38-126) U/L Total Protein 5.3 L 5.2 L (6.3-8.2) g/dL Albumin 2.5 L 2.5 L (3.5-5.0) g/dL Current Medications Generic Name Dose Route Start Last Admin Trade Name Freq PRN Reason Stop Dose Admin Hydrocodone Bitart/Acetaminophen 1 each 09/06/19 04:31 09/08/19 00:33 Anderson 10 PO 1 each Q6H PRN Administration Mild to Moderate Pain Apixaban 5 mg 09/05/19 12:15 09/09/19 08:53 Eliquis PO 5 mg BID TAMMY Administration Aspirin 81 mg 09/05/19 12:15 09/09/19 08:53 Aspirin PO 81 mg DAILY TAMMY Administration Atorvastatin Calcium 20 mg 09/05/19 21:00 09/08/19 20:54 Lipitor PO 20 mg HS TAMMY Administration Cyanocobalamin 1,000 mcg 09/06/19 09:00 09/09/19 08:53 Vitamin B-12 PO 1,000 mcg DAILY TAMMY Administration Ferrous Sulfate 325 mg 09/06/19 12:30 09/08/19 08:55 Feosol PO 325 mg W/LUNCH TAMMY Administration Gabapentin 300 mg 09/05/19 12:15 09/09/19 08:53 Neurontin PO 300 mg BID TAMMY Administration Loratadine 10 mg 09/05/19 12:15 09/09/19 08:53 Claritin PO 10 mg DAILY TAMMY Administration Lorazepam 1 mg 09/06/19 15:47 Ativan IV Q2HR PRN CIWA 8 or 9 Lorazepam 1 mg 09/06/19 15:47 Ativan IV Q1HR PRN CIWA 10 to 15 Metoprolol Succinate 50 mg 09/06/19 09:00 09/08/19 08:54 Toprol Xl PO 50 mg DAILY TAMMY Administration Miscellaneous Information 1 each 09/05/19 12:19 Potassium Per Protocol MISCELLANE DAILY PRN Per Protocol Protocol Pantoprazole Sodium 40 mg 09/06/19 07:30 09/09/19 08:52 Protonix PO 40 mg [id number] TAMMY Administration Thiamine HCl 100 mg 09/06/19 17:30 09/09/19 08:53 Vitamin B-1 PO 100 mg BID-W/MEALS TAMMY Administration Intake and Output 09/08/19 09/09/19 09/09/19 22:59 06:59 14:59 Intake Total 300 Output Total 1000 1600 1600 Balance -1000 -1300 -1600 Intake: Oral 300 Output: Urine 1000 1600 1600 Straight 1600 1600 Stool 0 Other: Voiding Method Indwelling Catheter Indwelling Catheter # Voids 2 # Bowel Movements 1 Weight 74.5 kg 09/09/19 09:03 09/09/19 09:03
[2019-09-09] MEDS: MAGNESIUM SULFATE-D5W PMX 1 GM in DEXTROSE/WATER 1 100ML.BAG IVPB SCH ×4 (11:06→15:09)
--- NOTE | 2019-09-09 12:04 | XR ---
EXAMINATION TYPE: XR chest 1V DATE OF EXAM: 09/09/2019 COMPARISON: 09/06/2019 HISTORY: 68 year-old male shortness of breath TECHNIQUE: Single frontal view of the chest is obtained. FINDINGS: Median sternotomy wires are present. Heart normal size. Volume loss at the right base with patchy rig ht basilar opacity. Mild patchy upper lobe opacity as well. No significant effusion. IMPRESSION: 1. Redemonstrated volume loss at the right base with asymmetric elevation of the right hemidiaphragm. 2. Scattered mild patchy density on both sides, right greater than left. Findings could represent are as of atelectasis. Follow-up recommended if concern for developing infiltrates.
[2019-09-09] MEDS: FERROUS SULFATE 325 MG TAB PO SCH (13:34)
[2019-09-09 14:06] LABS: Amorphous Sediment,Urine Rare /hpf; Appearance,Urine Cloudy (Clear); Bacteria,Urine Occasional /hpf; Bilirubin,Urine Negative (Negative); Blood,Urine Moderate (Negative); Budding Yeast,Urine Rare /hpf; Color,Urine Yellow; Glucose,Urine (UA) Negative (Negative); Ketones,Urine Negative (Negative); Leukocyte Esterase,Urine Large (Negative); Mucus,Urine Rare /hpf; Nitrite,Urine Negative (Negative); PH, Urine 5.5 (5.0-8.0); Protein,Urine Trace (Negative); RBC,Urine 19 /hpf (0-5); Specific Gravity,Urine 1.014 (1.001-1.035); Squamous Epithelial Cell,Urine <1 /hpf (0-4); Urobilinogen,Urine <2.0 mg/dL (<2.0); WBC,Urine 137 /hpf (0-5)
--- NOTE | 2019-09-09 16:29 | P.CONS ---
History of Present Illness - Reason for Consult Consult date: 09/09/19 Anemia Requesting physician: [facility] - Chief Complaint sob - History of Present Illness This is a 68-year-old male past medical history significant for coronary artery disease with myocardial infarction approximately 15 years ago and recent PCI in the last 6 months per the patient, history of PE and DVT, dyslipidemia, hypertension, chronic nicotine dependence and daily alcohol intake. He has not been adherent to prior medical advice in past. On admission hemoglobin decreased therefore hematology has been consulted. Past Medical History Past Medical History: Heart Failure, Hypertension, Myocardial Infarction ([place]), Pulmonary Embolus ([place]) Last Myocardial Infarction Date:: UNSURE History of Any Multi-Drug Resistant Organisms: None Reported Past Surgical History: Heart Catheterization With Stent Date of Last Stent Placement:: UNSURE Past Psychological History: No Psychological Hx Reported Smoking Status: Current every day smoker Past Alcohol Use History: Daily Past Drug Use History: None Reported - Past Family History Mother History Unknown: Yes Medications and Allergies Home Medications Medication Instructions Recorded Confirmed Type Aspirin EC [Ecotrin Low Dose] 81 mg PO DAILY 09/04/19 09/04/19 History Apixaban [Eliquis] 5 mg PO BID 09/05/19 09/05/19 History Clopidogrel [Plavix] 75 mg PO DAILY 09/05/19 09/05/19 History Furosemide [Lasix] 40 mg PO DAILY 09/05/19 09/05/19 History Gabapentin [Neurontin] 300 mg PO TID 09/05/19 09/05/19 History Lisinopril 20 mg PO DAILY 09/05/19 09/05/19 History Loratadine 10 mg PO DAILY 09/05/19 09/05/19 History Metoprolol Succinate (ER) [Toprol 1 tab PO DAILY 09/05/19 09/05/19 History XL] Montelukast [Singulair] 10 mg PO HS 09/05/19 09/05/19 History Omeprazole [PriLOSEC] 40 mg PO BID 09/05/19 09/05/19 History Simvastatin 40 mg PO HS 09/05/19 09/05/19 History amLODIPine [Norvasc] 10 mg PO DAILY 09/05/19 09/05/19 History traMADol HCL [Ultram] 1 tab PO QID PRN 09/05/19 09/05/19 History Allergies Allergy/AdvReac Type Severity Reaction Status Date / Time No Known Allergies Allergy Verified 09/05/19 14:22 Physical Exam Vitals: Vital Signs Temp Pulse Resp BP Pulse Ox 09/09/19 12:22 98.9 F 70 20 96/54 94 L 09/09/19 08:58 82 90/54 09/09/19 08:50 20 09/09/19 05:00 98.1 F 79 20 95/54 93 L 09/08/19 21:00 98.9 F 80 20 109/54 92 L 09/08/19 17:00 20 Intake and Output 09/09/19 09/09/19 09/09/19 06:59 14:59 22:59 Intake Total 300 Output Total 1600 1600 Balance -1300 -1600 Intake: Oral 300 Output: Urine 1600 1600 Straight 1600 1600 Other: Voiding Method Indwelling Catheter Indwelling Catheter Weight 74.5 kg Gen: alert, nad Head: ncat neck supple Lungs: diminished, No increased effort Abd: Soft Ext: gen edema Heart irr psych sleepy Results CBC & Chem 7: 09/09/19 09:03 09/09/19 09:03 Labs: Abnormal Lab Results - Last 24 Hours (Table) 09/06/19 09/08/19 09/09/19 Range/Units 05:38 23:35 09:03 RBC 2.01 L (4.30-5.90) m/uL Hgb 7.9 L (13.0-17.5) gm/dL Hct 24.1 L (39.0-53.0) % MCV 119.7 H (80.0-100.0) fL MCH 39.2 H (25.0-35.0) pg RDW 16.9 H (11.5-15.5) % Macrocytosis Marked A Sodium (137-145) mmol/L Potassium (3.5-5.1) mmol/L BUN (9-20) mg/dL Creatinine (0.66-1.25) mg/dL Glucose (74-99) mg/dL Calcium (8.4-10.2) mg/dL Magnesium (1.6-2.3) mg/dL AST (17-59) U/L Alkaline Phosphatase (38-126) U/L Troponin I 0.041 H* (0.000-0.034) ng/mL Total Protein (6.3-8.2) g/dL Albumin (3.5-5.0) g/dL Methylmalonic Acid 0.50 H (<0.40) umol/L Urine Protein (Negative) Urine Blood (Negative) Ur Leukocyte Esterase (Negative) Urine RBC (0-5) /hpf Urine WBC (0-5) /hpf Urine WBC Clumps (None) /hpf Amorphous Sediment (None) /hpf Urine Bacteria (None) /hpf Urine Mucus (None) /hpf Urine Yeast (Budding) (None) /hpf 09/09/19 09/09/19 Range/Units 09:03 13:32 RBC (4.30-5.90) m/uL Hgb (13.0-17.5) gm/dL Hct (39.0-53.0) % MCV (80.0-100.0) fL MCH (25.0-35.0) pg RDW (11.5-15.5) % Macrocytosis Sodium 134 L (137-145) mmol/L Potassium 3.2 L (3.5-5.1) mmol/L BUN 32 H (9-20) mg/dL Creatinine 2.34 H (0.66-1.25) mg/dL Glucose 117 H (74-99) mg/dL Calcium 7.1 L (8.4-10.2) mg/dL Magnesium 0.8 L* (1.6-2.3) mg/dL AST 64 H (17-59) U/L Alkaline Phosphatase 29 L (38-126) U/L Troponin I (0.000-0.034) ng/mL Total Protein 5.2 L (6.3-8.2) g/dL Albumin 2.5 L (3.5-5.0) g/dL Methylmalonic Acid (<0.40) umol/L Urine Protein Trace H (Negative) Urine Blood Moderate H (Negative) Ur Leukocyte Esterase Large H (Negative) Urine RBC 19 H (0-5) /hpf Urine WBC 137 H (0-5) /hpf Urine WBC Clumps Few H (None) /hpf Amorphous Sediment Rare H (None) /hpf Urine Bacteria Occasional H (None) /hpf Urine Mucus Rare H (None) /hpf Urine Yeast (Budding) Rare H (None) /hpf Assessment and Plan Plan: Assessment and recommendations: Macrocytic Anemia: - Known underlying ETOH and Liver Disease - Further work-up for other etiologies, patient also on anticoagulation Physician Attest: I have completed the full history and physical and developed the full assessment and plan: Agree with dictation, dictated as a scribe.
[2019-09-09] MEDS: POTASSIUM CHLORIDE ER 20 MEQ TAB.ER PO SCH ×2 (16:36→17:55)
--- NOTE | 2019-09-09 16:53 | US ---
EXAMINATION TYPE: US kidneys/renal and bladder DATE OF EXAM: 09/09/2019 COMPARISON: NONE CLINICAL HISTORY: chu. No pain. Bladder kovacs. EXAM MEASUREMENTS: Right Kidney: 9.0 x 4.2 x 5.4 cm Left Kidney: 9.8 x 3.5 x 5.6 cm Right Kidney: No hydronephrosis or masses seen. Cortical thinning. Left Kidney: No hydronephrosis or masses seen. Cortical thinning. Bladder: Kovacs visualized Bilateral Jets not seen due to kovacs IMPRESSION: 1. There may be some chronic renal changes present.
[2019-09-09 20:17] LABS: Partial Thromboplastin Time 33.2 sec (22.0-30.0); Prothrombin Time 10.2 sec (9.0-12.0)
[2019-09-09] MEDS: HYDROcodone/APAP 10-325MG 1 EACH TAB PO PRN (20:38)
[2019-09-09] MEDS: ATORVASTATIN 20 MG TAB PO SCH ×2 (20:38→20:39)
[2019-09-10 01:28] LABS: Protein, Total 4.8 g/dL (6.2-8.2)
[2019-09-10 02:15] LABS: Folate, Serum 2.5 ng/mL
[2019-09-10 03:14] LABS: % Iron Saturation 6.25 (15.00-50.00); Ferritin 417.4 ng/mL (22.0-322.0)
[2019-09-10 06:59] LABS: Albumin 2.3 g/dL (3.5-5.0); Magnesium 1.8 mg/dL (1.6-2.3); Potassium 3.6 mmol/L (3.5-5.1); Total Bilirubin 0.4 mg/dL (0.2-1.3); Total Protein 4.9 g/dL (6.3-8.2)
[2019-09-10 07:07] LABS: Anisocytosis Slight; Basophils % (A) 0 %; Eosinophils # (A) 0.2 k/uL (0-0.7); Eosinophils % (A) 3 %; HCT 24.6 % (39.0-53.0); HGB 8.3 gm/dL (13.0-17.5); Hypochromasia Slight; Lymphocytes % (A) 22 %; MCH 41.1 pg (25.0-35.0); MCHC 33.8 g/dL (31.0-37.0); MCV 121.6 fL (80.0-100.0); Macrocytosis Marked; Mean Platelet Volume 8.4; Monocytes # (A) 0.5 k/uL (0-1.0); Monocytes % (A) 11 %; Neutrophils # (A) 2.8 k/uL (1.3-7.7); Neutrophils % (A) 61 %; Platelet Count 233 k/uL (150-450); RBC 2.02 m/uL (4.30-5.90); RDW 16.3 % (11.5-15.5); WBC 4.6 k/uL (3.8-10.6)
--- NOTE | 2019-09-10 08:04 | P.PN ---
Subjective Patient is seen in follow-up for acute kidney injury. Renal function is improving. Diuretics are held. Oral intake is fair. Nonoliguric. Continues to complain of pain in his lower extremity. Vital signs are stable. General: The patient appeared well nourished and normally developed. HEENT: Head exam is unremarkable. Neck is without jugular venous distension. LUNGS: Lungs are clear to auscultation and percussion. Breath sounds decreased. HEART: Rate and Rhythm are regular. ABDOMEN: No distention noted. Nontender. EXTREMITITES: No clubbing, cyanosis, or edema. Generalized tenderness. Objective - Vital Signs Vital signs: Vital Signs Temp 97.4 F L 09/10/19 05:00 Pulse 75 09/10/19 05:00 Resp 20 09/10/19 05:00 BP 104/55 09/10/19 05:00 Pulse Ox 96 09/10/19 05:00 Intake & Output 09/09/19 09/10/19 09/10/19 18:59 06:59 18:59 Intake Total 550 Output Total 2200 Balance -2200 550 Weight 87 kg Intake: Oral 550 Output: Urine 2200 Straight 2200 Other: Voiding Method Indwelling Catheter Indwelling Catheter # Bowel Movements 1 - Labs CBC & Chem 7: 09/10/19 05:42 09/10/19 05:42 Labs: Abnormal Lab Results - Last 24 Hours (Table) 09/06/19 09/09/19 09/09/19 Range/Units 05:38 09:03 09:03 RBC 2.01 L (4.30-5.90) m/uL Hgb 7.9 L (13.0-17.5) gm/dL Hct 24.1 L (39.0-53.0) % MCV 119.7 H (80.0-100.0) fL MCH 39.2 H (25.0-35.0) pg RDW 16.9 H (11.5-15.5) % Macrocytosis Marked A APTT (22.0-30.0) sec Sodium 134 L (137-145) mmol/L Potassium 3.2 L (3.5-5.1) mmol/L BUN 32 H (9-20) mg/dL Creatinine 2.34 H (0.66-1.25) mg/dL Glucose 117 H (74-99) mg/dL Calcium 7.1 L (8.4-10.2) mg/dL Magnesium 0.8 L* (1.6-2.3) mg/dL Iron (65-175) ug/dL TIBC (228-460) ug/dL % Saturation (15.00-50.00) Ferritin (22.0-322.0) ng/mL AST 64 H (17-59) U/L Alkaline Phosphatase 29 L (38-126) U/L Total Protein 5.2 L (6.3-8.2) g/dL Total Protein (PEP) (6.2-8.2) g/dL Albumin 2.5 L (3.5-5.0) g/dL Methylmalonic Acid 0.50 H (<0.40) umol/L Urine Protein (Negative) Urine Blood (Negative) Ur Leukocyte Esterase (Negative) Urine RBC (0-5) /hpf Urine WBC (0-5) /hpf Urine WBC Clumps (None) /hpf Amorphous Sediment (None) /hpf Urine Bacteria (None) /hpf Urine Mucus (None) /hpf Urine Yeast (Budding) (None) /hpf 09/09/19 09/09/19 09/09/19 Range/Units 13:32 19:32 19:32 RBC (4.30-5.90) m/uL Hgb (13.0-17.5) gm/dL Hct (39.0-53.0) % MCV (80.0-100.0) fL MCH (25.0-35.0) pg RDW (11.5-15.5) % Macrocytosis APTT (22.0-30.0) sec Sodium (137-145) mmol/L Potassium (3.5-5.1) mmol/L BUN (9-20) mg/dL Creatinine (0.66-1.25) mg/dL Glucose (74-99) mg/dL Calcium (8.4-10.2) mg/dL Magnesium (1.6-2.3) mg/dL Iron 12 L (65-175) ug/dL TIBC 192 L (228-460) ug/dL % Saturation 6.25 L (15.00-50.00) Ferritin 417.4 H (22.0-322.0) ng/mL AST (17-59) U/L Alkaline Phosphatase (38-126) U/L Total Protein (6.3-8.2) g/dL Total Protein (PEP) 4.8 L (6.2-8.2) g/dL Albumin (3.5-5.0) g/dL Methylmalonic Acid (<0.40) umol/L Urine Protein Trace H (Negative) Urine Blood Moderate H (Negative) Ur Leukocyte Esterase Large H (Negative) Urine RBC 19 H (0-5) /hpf Urine WBC 137 H (0-5) /hpf Urine WBC Clumps Few H (None) /hpf Amorphous Sediment Rare H (None) /hpf Urine Bacteria Occasional H (None) /hpf Urine Mucus Rare H (None) /hpf Urine Yeast (Budding) Rare H (None) /hpf 09/09/19 09/10/19 09/10/19 Range/Units 19:32 05:42 05:42 RBC 2.02 L (4.30-5.90) m/uL Hgb 8.3 L (13.0-17.5) gm/dL Hct 24.6 L (39.0-53.0) % MCV 121.6 H (80.0-100.0) fL MCH 41.1 H (25.0-35.0) pg RDW 16.3 H (11.5-15.5) % Macrocytosis Marked A APTT 33.2 H (22.0-30.0) sec Sodium 134 L (137-145) mmol/L Potassium (3.5-5.1) mmol/L BUN 28 H (9-20) mg/dL Creatinine 1.95 H (0.66-1.25) mg/dL Glucose (74-99) mg/dL Calcium 7.0 L (8.4-10.2) mg/dL Magnesium (1.6-2.3) mg/dL Iron (65-175) ug/dL TIBC (228-460) ug/dL % Saturation (15.00-50.00) Ferritin (22.0-322.0) ng/mL AST (17-59) U/L Alkaline Phosphatase 34 L (38-126) U/L Total Protein 4.9 L (6.3-8.2) g/dL Total Protein (PEP) (6.2-8.2) g/dL Albumin 2.3 L (3.5-5.0) g/dL Methylmalonic Acid (<0.40) umol/L Urine Protein (Negative) Urine Blood (Negative) Ur Leukocyte Esterase (Negative) Urine RBC (0-5) /hpf Urine WBC (0-5) /hpf Urine WBC Clumps (None) /hpf Amorphous Sediment (None) /hpf Urine Bacteria (None) /hpf Urine Mucus (None) /hpf Urine Yeast (Budding) (None) /hpf Assessment and Plan Plan: Assessment: 1. Acute kidney injury secondary to ATN secondary to hypotension and diuresis. He also received IV contrast on September 03. Creatinine peaked at 2.35 this admission and is down to 1.95 today. Unknown baseline renal function. Trace proteinuria on UA. No hydronephrosis noted on kidney ultrasound. 2. Peripheral vascular disease. Vascular surgery following. 3. Chronic diastolic CHF. 4. Alcohol abuse. 5. History of tobacco abuse. 6. Hypotension secondary to lisinopril and diuresis. Better. 7. Severe hypomagnesemia from poor oral intake and chronic alcohol abuse. Improved post placement. 8. Anemia with severe iron deficiency. Plan: Discontinued lisinopril. Continue to hold diuretics. Check urine culture. Avoid nephrotoxins. Continue to monitor renal function and urine output. IV iron 3 doses. First dose today.
[2019-09-10] MEDS ORDERED: CLOPIDOGREL 75 MG TAB PO SCH (09:00)
[2019-09-10] MEDS ORDERED: AZITHROMYCIN 500 MG in SODIUM CHLORIDE 0.9% 250 ML IVPB SCH (09:00)
[2019-09-10 09:17] LABS: Free Kappa Lt Chain Qnt, Serum 9.11 mg/dL (0.33-1.94)
[2019-09-10] MEDS: CYANOCOBALAMIN 500 MCG TAB PO SCH (09:35)
[2019-09-10] MEDS: METOPROLOL SUCCINATE (ER) 25 MG TAB.ER.24H PO SCH (09:35)
[2019-09-10] MEDS: SODIUM FERRIC GLUCONAT-SUCROSE 125 MG in SODIUM CHLORIDE 0.9% 100 ML IVPB SCH (09:35)
[2019-09-10] MEDS: GABAPENTIN 300 MG CAP PO SCH ×2 (09:36→21:25)
[2019-09-10] MEDS: PANTOPRAZOLE 40 MG TABLET PO SCH (09:36)
[2019-09-10] MEDS: LORATADINE 10 MG TAB PO SCH (09:36)
[2019-09-10] MEDS: THIAMINE 100 MG TAB PO SCH ×2 (09:36→18:31)
[2019-09-10] MEDS: APIXABAN 5 MG TAB PO SCH ×2 (09:36→21:25)
[2019-09-10] MEDS: FERROUS SULFATE 325 MG TAB PO SCH (09:36)
[2019-09-10 09:52] VITALS: BMI 26.7
--- NOTE | 2019-09-10 10:17 | P.PN ---
Subjective HISTORY OF PRESENTING ILLNESS This is a pleasant 68-year-old male past medical history significant for coronary artery disease with myocardial infarction approximately 15 years ago and recent PCI in the last 6 months per the patient, coronary artery bypass grafting, history of PE and DVT, dyslipidemia, hypertension, chronic nicotine dependence and daily alcohol intake. He states he has been noncompliant with all of his medications in the previous 3 months because he did not feel like going to the store. He states he sees a mental health therapist in [facility] but is unsure of his name. We requested records yesterday for review. He underwent cardiac catheterization in August 2018. At that time his LV function with normal, aortic root enlarged with aortic insufficiency, toatlly occlused LAD at the origin with widely patent SAWANT-LAD, widely patent SVG-diagonal branch, plaque throughout the circumflex without high grade stenosis and 80% proximal RCA stenosis. He underwent successful PCI of the RCA at that time. He is seen and examined resting comfortably in bed in no acute distress. He denies chest pain, shortness of breath, dizziness or palpitations. Blood pressure 104/55 heart rate 75 afebrile and maintaining oxygen saturation on room air. Laboratory data reviewed, WBC 4.6, hgb 8.3, plt 233, sodium 134, potassium 3.6, creatinine 1.95 and magnesium 1.8. He is also being followed by nephrology who discontinued his IV lasix due to worsening renal function. Hematology is also following and he is receiving iron infusions. PHYSICAL EXAMINATION CONSTITUTIONAL: No apparent distress. HEENT: Head is normocephalic. Pupils are equal, round. Sclerae anicteric. Mucous membranes of the mouth are moist. No JVD. No carotid bruit. CHEST EXAMINATION: Faint expiratory wheezes, no rales or rhonchi. No chest wall tenderness is noted on palpation or with deep breathing. HEART EXAMINATION: Regular rate and rhythm. S1, S2 heard. Systolic ejection murmur at the left sternal border, no gallops or rub. EXTREMITIES: 2+ peripheral pulses, no lower extremity edema and no calf tenderness. ASSESSMENT Acute on chronic diastolic heart failure, improved Acute kidney injury, baseline unknown Elevated troponin secondary to renal function. Flat trend with no symptoms of ACS. Anemia, could be causing his exertional shortness of breath. 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 He denies prior history of a-fib. Dyslipidemia Hypertension with episodes of hypotension Non-compliance Chronic nicotine and alcohol dependence PLAN Plavix can be discontinued as his PCI was 1-year ago. Continue with aspirin 81 mg daily. Eliquis for history of PE/DVT managed per PCP. Follow up with Dr. Yi for cardiology upon discharge. Nurse Practitioner note has been reviewed, I agree with a documented findings and plan of care. Patient was seen and examined. Objective - Vital Signs Vital signs: Vital Signs Temp 97.4 F L 09/10/19 05:00 Pulse 75 09/10/19 05:00 Resp 20 09/10/19 05:00 BP 104/55 09/10/19 05:00 Pulse Ox 96 09/10/19 05:00 Intake & Output 09/09/19 09/10/19 09/10/19 18:59 06:59 18:59 Intake Total 550 Output Total 2200 Balance -2200 550 Weight 87 kg 87 kg Intake: Oral 550 Output: Urine 2200 Straight 2200 Other: Voiding Method Indwelling Catheter Indwelling Catheter # Bowel Movements 1 - Labs CBC & Chem 7: 09/10/19 05:42 09/10/19 05:42 Labs: Abnormal Lab Results - Last 24 Hours (Table) 09/09/19 09/09/19 09/09/19 Range/Units 09:03 09:03 13:32 RBC 2.01 L (4.30-5.90) m/uL Hgb 7.9 L (13.0-17.5) gm/dL Hct 24.1 L (39.0-53.0) % MCV 119.7 H (80.0-100.0) fL MCH 39.2 H (25.0-35.0) pg RDW 16.9 H (11.5-15.5) % Macrocytosis Marked A APTT (22.0-30.0) sec Sodium 134 L (137-145) mmol/L Potassium 3.2 L (3.5-5.1) mmol/L BUN 32 H (9-20) mg/dL Creatinine 2.34 H (0.66-1.25) mg/dL Glucose 117 H (74-99) mg/dL Calcium 7.1 L (8.4-10.2) mg/dL Magnesium 0.8 L* (1.6-2.3) mg/dL Iron (65-175) ug/dL TIBC (228-460) ug/dL % Saturation (15.00-50.00) Ferritin (22.0-322.0) ng/mL AST 64 H (17-59) U/L Alkaline Phosphatase 29 L (38-126) U/L Total Protein 5.2 L (6.3-8.2) g/dL Total Protein (PEP) (6.2-8.2) g/dL Albumin 2.5 L (3.5-5.0) g/dL Urine Protein Trace H (Negative) Urine Blood Moderate H (Negative) Ur Leukocyte Esterase Large H (Negative) Urine RBC 19 H (0-5) /hpf Urine WBC 137 H (0-5) /hpf Urine WBC Clumps Few H (None) /hpf Amorphous Sediment Rare H (None) /hpf Urine Bacteria Occasional H (None) /hpf Urine Mucus Rare H (None) /hpf Urine Yeast (Budding) Rare H (None) /hpf Free [place] LC, Quant (0.33-1.94) mg/dL 09/09/19 09/09/19 09/09/19 Range/Units 19:32 19:32 19:32 RBC (4.30-5.90) m/uL Hgb (13.0-17.5) gm/dL Hct (39.0-53.0) % MCV (80.0-100.0) fL MCH (25.0-35.0) pg RDW (11.5-15.5) % Macrocytosis APTT 33.2 H (22.0-30.0) sec Sodium (137-145) mmol/L Potassium (3.5-5.1) mmol/L BUN (9-20) mg/dL Creatinine (0.66-1.25) mg/dL Glucose (74-99) mg/dL Calcium (8.4-10.2) mg/dL Magnesium (1.6-2.3) mg/dL Iron 12 L (65-175) ug/dL TIBC 192 L (228-460) ug/dL % Saturation 6.25 L (15.00-50.00) Ferritin 417.4 H (22.0-322.0) ng/mL AST (17-59) U/L Alkaline Phosphatase (38-126) U/L Total Protein (6.3-8.2) g/dL Total Protein (PEP) 4.8 L (6.2-8.2) g/dL Albumin (3.5-5.0) g/dL Urine Protein (Negative) Urine Blood (Negative) Ur Leukocyte Esterase (Negative) Urine RBC (0-5) /hpf Urine WBC (0-5) /hpf Urine WBC Clumps (None) /hpf Amorphous Sediment (None) /hpf Urine Bacteria (None) /hpf Urine Mucus (None) /hpf Urine Yeast (Budding) (None) /hpf Free [place] LC, Quant 9.11 H (0.33-1.94) mg/dL 09/10/19 09/10/19 Range/Units 05:42 05:42 RBC 2.02 L (4.30-5.90) m/uL Hgb 8.3 L (13.0-17.5) gm/dL Hct 24.6 L (39.0-53.0) % MCV 121.6 H (80.0-100.0) fL MCH 41.1 H (25.0-35.0) pg RDW 16.3 H (11.5-15.5) % Macrocytosis Marked A APTT (22.0-30.0) sec Sodium 134 L (137-145) mmol/L Potassium (3.5-5.1) mmol/L BUN 28 H (9-20) mg/dL Creatinine 1.95 H (0.66-1.25) mg/dL Glucose (74-99) mg/dL Calcium 7.0 L (8.4-10.2) mg/dL Magnesium (1.6-2.3) mg/dL Iron (65-175) ug/dL TIBC (228-460) ug/dL % Saturation (15.00-50.00) Ferritin (22.0-322.0) ng/mL AST (17-59) U/L Alkaline Phosphatase 34 L (38-126) U/L Total Protein 4.9 L (6.3-8.2) g/dL Total Protein (PEP) (6.2-8.2) g/dL Albumin 2.3 L (3.5-5.0) g/dL Urine Protein (Negative) Urine Blood (Negative) Ur Leukocyte Esterase (Negative) Urine RBC (0-5) /hpf Urine WBC (0-5) /hpf Urine WBC Clumps (None) /hpf Amorphous Sediment (None) /hpf Urine Bacteria (None) /hpf Urine Mucus (None) /hpf Urine Yeast (Budding) (None) /hpf Free [place] LC, Quant (0.33-1.94) mg/dL
[2019-09-10 10:46] LABS: Immunoglobulin M 30.3 mg/dL (40.0-280.0)
--- NOTE | 2019-09-10 10:59 | P.PN ---
Subjective Progress Note Date: 09/10/19 Principal diagnosis: Leg pain Patient still feeling significantly weak, not able to get out of bed. Still having cough and shortness of breath as well. His oxygen requirement has been going up, currently on 5 L. Objective - Vital Signs Vital signs: Vital Signs Temp 97.4 F L 09/10/19 05:00 Pulse 75 09/10/19 05:00 Resp 20 09/10/19 05:00 BP 104/55 09/10/19 05:00 Pulse Ox 96 09/10/19 05:00 Intake & Output 09/09/19 09/10/19 09/10/19 18:59 06:59 18:59 Intake Total 550 Output Total 2200 Balance -2200 550 Weight 87 kg 87 kg Intake: Oral 550 Output: Urine 2199 Straight 2199 Other: Voiding Method Indwelling Catheter Indwelling Catheter # Bowel Movements 1 - Exam Constitutional: No acute distress, conversant, pleasant Eyes:Anicteric sclerae, moist conjunctiva, no lid-lag, PERRLA, ENMT: Oropharynx clear, no erythema, exudates Neck: Supple, FROM, no masses, or JVD, No carotid bruits, No thyromegaly Lungs: Clear to auscultation, Clear to percussion, Normal respiratory effort, no accessory muscle use Cardiovascular: Heart regular in rate and rhythm, No murmurs, gallops, or rubs, No peripheral edema Abdominal: Soft, Nontender, no guarding, rebound or rigidity, Normoactive bowel sounds, No hepatomegaly, No splenomegaly, No palpable mass Skin: Normal temperature, tone, texture, turgor, no induration, No subcutaneous nodules, No rash, lesions, No ulcers Extremities: No digital cyanosis, No clubbing, Pedal pulses intact and symmetrical, Radial pulses intact and symmetrical, No calf tenderness Psychiatric: Alert and oriented to person, place and time, appropriate affect, intact judgement Neuro: Muscles Strength 5/5 in all 4 extremities, Sensation to light touch grossly present throughout, Cranial nerves II-XII grossly intact, no focal sensory deficits - Labs CBC & Chem 7: 09/10/19 05:42 09/10/19 05:42 Labs: Abnormal Lab Results - Last 24 Hours (Table) 09/09/19 09/09/19 09/09/19 Range/Units 13:32 19:32 19:32 RBC (4.30-5.90) m/uL Hgb (13.0-17.5) gm/dL Hct (39.0-53.0) % MCV (80.0-100.0) fL MCH (25.0-35.0) pg RDW (11.5-15.5) % Macrocytosis Haptoglobin 230.0 H (31.2-198.0) mg/dL APTT (22.0-30.0) sec Sodium (137-145) mmol/L BUN (9-20) mg/dL Creatinine (0.66-1.25) mg/dL Calcium (8.4-10.2) mg/dL Iron 12 L (65-175) ug/dL TIBC 192 L (228-460) ug/dL % Saturation 6.25 L (15.00-50.00) Ferritin 417.4 H (22.0-322.0) ng/mL Alkaline Phosphatase (38-126) U/L Total Protein (6.3-8.2) g/dL Total Protein (PEP) 4.8 L (6.2-8.2) g/dL Albumin (3.5-5.0) g/dL Urine Protein Trace H (Negative) Urine Blood Moderate H (Negative) Ur Leukocyte Esterase Large H (Negative) Urine RBC 19 H (0-5) /hpf Urine WBC 137 H (0-5) /hpf Urine WBC Clumps Few H (None) /hpf Amorphous Sediment Rare H (None) /hpf Urine Bacteria Occasional H (None) /hpf Urine Mucus Rare H (None) /hpf Urine Yeast (Budding) Rare H (None) /hpf IgA (60.0-350.0) mg/dL IgM (40.0-280.0) mg/dL Free [place] LC, Quant 9.11 H (0.33-1.94) mg/dL Free Lambda LC, Quant 6.58 H (0.57-2.63) mg/dL 09/09/19 09/09/19 09/10/19 Range/Units 19:32 19:32 05:42 RBC (4.30-5.90) m/uL Hgb (13.0-17.5) gm/dL Hct (39.0-53.0) % MCV (80.0-100.0) fL MCH (25.0-35.0) pg RDW (11.5-15.5) % Macrocytosis Haptoglobin (31.2-198.0) mg/dL APTT 33.2 H (22.0-30.0) sec Sodium 134 L (137-145) mmol/L BUN 28 H (9-20) mg/dL Creatinine 1.95 H (0.66-1.25) mg/dL Calcium 7.0 L (8.4-10.2) mg/dL Iron (65-175) ug/dL TIBC (228-460) ug/dL % Saturation (15.00-50.00) Ferritin (22.0-322.0) ng/mL Alkaline Phosphatase 34 L (38-126) U/L Total Protein 4.9 L (6.3-8.2) g/dL Total Protein (PEP) (6.2-8.2) g/dL Albumin 2.3 L (3.5-5.0) g/dL Urine Protein (Negative) Urine Blood (Negative) Ur Leukocyte Esterase (Negative) Urine RBC (0-5) /hpf Urine WBC (0-5) /hpf Urine WBC Clumps (None) /hpf Amorphous Sediment (None) /hpf Urine Bacteria (None) /hpf Urine Mucus (None) /hpf Urine Yeast (Budding) (None) /hpf IgA 437.0 H (60.0-350.0) mg/dL IgM 30.3 L (40.0-280.0) mg/dL Free [place] LC, Quant (0.33-1.94) mg/dL Free Lambda LC, Quant (0.57-2.63) mg/dL 09/10/19 Range/Units 05:42 RBC 2.02 L (4.30-5.90) m/uL Hgb 8.3 L (13.0-17.5) gm/dL Hct 24.6 L (39.0-53.0) % MCV 121.6 H (80.0-100.0) fL MCH 41.1 H (25.0-35.0) pg RDW 16.3 H (11.5-15.5) % Macrocytosis Marked A Haptoglobin (31.2-198.0) mg/dL APTT (22.0-30.0) sec Sodium (137-145) mmol/L BUN (9-20) mg/dL Creatinine (0.66-1.25) mg/dL Calcium (8.4-10.2) mg/dL Iron (65-175) ug/dL TIBC (228-460) ug/dL % Saturation (15.00-50.00) Ferritin (22.0-322.0) ng/mL Alkaline Phosphatase (38-126) U/L Total Protein (6.3-8.2) g/dL Total Protein (PEP) (6.2-8.2) g/dL Albumin (3.5-5.0) g/dL Urine Protein (Negative) Urine Blood (Negative) Ur Leukocyte Esterase (Negative) Urine RBC (0-5) /hpf Urine WBC (0-5) /hpf Urine WBC Clumps (None) /hpf Amorphous Sediment (None) /hpf Urine Bacteria (None) /hpf Urine Mucus (None) /hpf Urine Yeast (Budding) (None) /hpf IgA (60.0-350.0) mg/dL IgM (40.0-280.0) mg/dL Free [place] LC, Quant (0.33-1.94) mg/dL Free Lambda LC, Quant (0.57-2.63) mg/dL Assessment and Plan Plan: Acute on chronic diastolic CHF exacerbation -Echocardiogram shows preserved EF with grade 1 diastolic dysfunction -Lasix held due to acute renal failure CAP Antibiotics started Blood cultures stat Acute hypoxic respiratory failure Likely secondary to above Oxygen to keep sats above 92% Troponin elevation and hypotension -Discussed with cardiology service, no need for intervention at this point. -Continue aspirin, Lipitor and metoprolol. -Discontinue Plavix -Discontinue amlodipine due to hypotension Bilateral lower extremity pain, likely due to peripheral vascular disease -Vascular surgery consulted -Continue Eliquis and aspirin -Continue Statin -Pain control with Vergas scheduled and Gabapentin -Follow-up PT and OT consultation Macrocytic anemia -B12 low normal, MMA elevated and folate within normal limits. High methymalonic acid. -Likely vit B12 deficiency. -Started B12 supplementation. COSME Lasix and lisinopril on hold. Renal ultrasound showed no obstruction. Avoid nephrotoxins. Continue to monitor renal function and urine output. General weakness Likely secondary to all of the above Encouraged to ambulate PT Urinary retention -Rooney catheter DVT prophylaxis On anticoagulation
[2019-09-10] MEDS: AZITHROMYCIN 500 MG in SODIUM CHLORIDE 0.9% 250 ML IVPB SCH (11:54)
[2019-09-10 13:45] LABS: Albumin 2.15 g/dL (3.80-4.90); Gamma Globulin 0.68 g/dL (0.70-1.50)
--- NOTE | 2019-09-10 16:44 | P.PN ---
Subjective Progress Note Date: 09/10/19 Principal diagnosis: Anemia B12 deficiency, likely inability to asborb in GI tract secondary to inflammation from ETOH abuse Objective - Vital Signs Vital signs: Vital Signs Temp 97.4 F L 09/10/19 05:00 Pulse 77 09/10/19 16:00 Resp 16 09/10/19 16:00 BP 103/55 09/10/19 16:00 Pulse Ox 94 L 09/10/19 16:00 Intake & Output 09/09/19 09/10/19 09/10/19 18:59 06:59 18:59 Intake Total 550 Output Total 2200 400 Balance -2200 550 -400 Weight 87 kg 87 kg Intake: Oral 550 Output: Urine 2200 400 Straight 2200 Other: Voiding Method Indwelling Catheter Indwelling Catheter # Bowel Movements 1 - Exam Gen: alert, nad Head: ncat neck supple Lungs: diminished, No increased effort Abd: Soft Ext: gen edema Heart irr psych sleepy - Labs CBC & Chem 7: 09/10/19 05:42 09/10/19 05:42 Labs: Abnormal Lab Results - Last 24 Hours (Table) 09/09/19 09/09/19 09/09/19 Range/Units 19:32 19:32 19:32 RBC (4.30-5.90) m/uL Hgb (13.0-17.5) gm/dL Hct (39.0-53.0) % MCV (80.0-100.0) fL MCH (25.0-35.0) pg RDW (11.5-15.5) % Macrocytosis Haptoglobin 230.0 H (31.2-198.0) mg/dL APTT (22.0-30.0) sec Sodium (137-145) mmol/L BUN (9-20) mg/dL Creatinine (0.66-1.25) mg/dL Calcium (8.4-10.2) mg/dL Iron 12 L (65-175) ug/dL TIBC 192 L (228-460) ug/dL % Saturation 6.25 L (15.00-50.00) Ferritin 417.4 H (22.0-322.0) ng/mL Alkaline Phosphatase (38-126) U/L Total Protein (6.3-8.2) g/dL Total Protein (PEP) 4.8 L (6.2-8.2) g/dL Albumin (3.5-5.0) g/dL Albumin (PEP) 2.15 L (3.80-4.90) g/dL [id number] 0.43 H (0.10-0.40) g/dL Gamma Globulins 0.68 L (0.70-1.50) g/dL IgA 437.0 H (60.0-350.0) mg/dL IgM 30.3 L (40.0-280.0) mg/dL Free [place] LC, Quant 9.11 H (0.33-1.94) mg/dL Free Lambda LC, Quant 6.58 H (0.57-2.63) mg/dL 09/09/19 09/10/19 09/10/19 Range/Units 19:32 05:42 05:42 RBC 2.02 L (4.30-5.90) m/uL Hgb 8.3 L (13.0-17.5) gm/dL Hct 24.6 L (39.0-53.0) % MCV 121.6 H (80.0-100.0) fL MCH 41.1 H (25.0-35.0) pg RDW 16.3 H (11.5-15.5) % Macrocytosis Marked A Haptoglobin (31.2-198.0) mg/dL APTT 33.2 H (22.0-30.0) sec Sodium 134 L (137-145) mmol/L BUN 28 H (9-20) mg/dL Creatinine 1.95 H (0.66-1.25) mg/dL Calcium 7.0 L (8.4-10.2) mg/dL Iron (65-175) ug/dL TIBC (228-460) ug/dL % Saturation (15.00-50.00) Ferritin 420.0 H (22.0-322.0) ng/mL Alkaline Phosphatase 34 L (38-126) U/L Total Protein 4.9 L (6.3-8.2) g/dL Total Protein (PEP) (6.2-8.2) g/dL Albumin 2.3 L (3.5-5.0) g/dL Albumin (PEP) (3.80-4.90) g/dL Hgtmu-[id number] (0.10-0.40) g/dL Gamma Globulins (0.70-1.50) g/dL IgA (60.0-350.0) mg/dL IgM (40.0-280.0) mg/dL Free [place] LC, Quant (0.33-1.94) mg/dL Free Lambda LC, Quant (0.57-2.63) mg/dL Assessment and Plan Plan: Assessment and recommendations: Macrocytic Anemia: - Known underlying ETOH and Liver Disease - Further work-up for other etiologies, patient also on anticoagulation - B12 deficiency, B12 IM secondary to inability to asborb PO - COntinue Thiamine and folate - Monitor CBC and follow-up in office in 2 weeks to continue supplementation and if he stops drinking and counts do not recover would consider BM biopsy, this was all explained to him and understanding stated. Physician Attest: I have completed the full history and physical and developed the full assessment and plan: Agree with dictation, dictated as a scribe.
[2019-09-10] MEDS: CYANOCOBALAMIN 1,000 MCG/ML 1 ML VIAL IM SCH (18:31)
--- NOTE | 2019-09-11 01:15 | CONS ---
CONSULTATION REQUESTING PHYSICIAN: Dr. Juan Yi. REASON FOR CONSULTATION: Anemia. HISTORY OF PRESENT ILLNESS: The patient is a 68-year-old pleasant white male admitted to the hospital with severe lower extremity weakness and lower extremity pain for the last few weeks duration. He has been in the hospital for the last four days and vascular has been consulted in regards to this issue. He also has significant past medical history of coronary artery disease status post VA in the past, history of congestive heart failure, history of PE and DVT in the past. We are consulted because of anemia that was noted during this entire hospitalization. In the last four days, his hemoglobin has ranged between 7.8 to 9 gmDL and 120. The patient denies any abdominal pain. He reports no nausea, vomiting. He denies any rectal bleeding or melena. He has a history of heavy alcohol abuse in the past. He does not recall having any EGD or colonoscopy in the past. PAST MEDICAL HISTORY: History is significant for congestive heart failure, history of hypertension, coronary artery disease, history of pulmonary embolism in the past. PAST SURGERY: Past surgical history of cardiac catheterization with stent placement. SOCIAL HISTORY: Chronic smoker. No alcohol use. FAMILY HISTORY: Unremarkable. MEDICATIONS: At home include aspirin, Eliquis, Plavix, Lasix and Neurontin, Lisinopril, Loratadine, Toprol, Singulair, Prilosec, Simvastatin, Norvasc, Ultram. ALLERGIES: None. SOCIAL HISTORY: Chronic smoker. Remote history of alcohol use. REVIEW OF SYSTEMS: CARDIOPULMONARY: No chest pain, but does complain of occasional shortness of breath. GENITOURINARY: No dysuria or hematuria. MUSCULOSKELETAL: Severe weakness of the lower extremities and pain in the lower extremities. NEUROLOGY unremarkable PSYCHIATRIC unremarkable. ENT/vision unremarkable. CONSTITUTIONAL: Weight loss of 15 pounds. No fever, chills, or night sweats. HEMATOLOGY: Anemia. ENDOCRINE unremarkable. PHYSICAL EXAMINATION: GENERAL: He appears comfortable, in no apparent distress. VITAL SIGNS: Vital signs stable. Blood pressure is 130/86, pulse rate 75, temperature 97.4. HEENT: Examination unremarkable. Conjunctivae pink. Sclerae anicteric. Oral cavity no lesions. NECK: No JVD. No lymph node enlargement. CHEST: Clear to auscultation. HEART: Regular rate and rhythm. ABDOMEN: Soft, there was mild tenderness in the left lower quadrant area. The rest of the abdomen was benign. Bowel sounds positive. No organomegaly. EXTREMITIES: No pedal edema. SKIN: No rashes. NEUROLOGICAL: Alert and oriented times three. No focal deficits. LABS: WBC 6.9, hemoglobin 7.9. Today it was 8.3. MCV 121. The platelets are normal. Basic metabolic panel is within normal limits. The BUN is 28, creatinine 1.95. AST/ALT are 64 and 18 respectively. T-bili and alk are normal. Serum iron is 12, TIBC is 192. Iron saturation is 6% and ferritin is 417. Vitamin B12 447, 2.5. IMPRESSION: 1. Microcytic anemia with a stable hemoglobin since hospitalization. Last hemoglobin was 7.9 g/dL. Hematology has been consulted. Dr. March evaluated the patient. He is undergoing workup for anemia of chronic disease currently. Iron indices not consistent with iron deficiency anemia. 2. Remote history of alcohol abuse. 3. Lower extremity weakness and lower extremity pain for which vascular surgery has been consulted. 4. Community-acquired pneumonia on antibiotics. 5. Congestive heart failure. 6. Acute kidney injury, which is being monitored closely. RECOMMENDATION: 1. Agree with hematology consultation and workup for anemia. 2. Since there is no indication of iron deficiency anemia on recent lab testing, I would not proceed with any endoscopic intervention at the present time. However, since the patient never had a colonoscopy done in the past, I recommended for him to have this on an outpatient basis for screening colonoscopy. 3. We will follow with you closely. Thank you for this consultation. MMODL / IJN: [id number] /
[2019-09-11 07:34] LABS: Calcium 7.1 mg/dL (8.4-10.2); Magnesium 1.5 mg/dL (1.6-2.3); Potassium 3.9 mmol/L (3.5-5.1)
[2019-09-11] MEDS: GABAPENTIN 300 MG CAP PO SCH ×2 (08:55→21:06)
[2019-09-11] MEDS: ASPIRIN 81 MG PO SCH (08:56)
[2019-09-11] MEDS: PANTOPRAZOLE 40 MG TABLET PO SCH (08:56)
[2019-09-11] MEDS: METOPROLOL SUCCINATE (ER) 25 MG TAB.ER.24H PO SCH (08:56)
[2019-09-11] MEDS: CYANOCOBALAMIN 1,000 MCG/ML 1 ML VIAL IM SCH (08:56)
[2019-09-11] MEDS: LORATADINE 10 MG TAB PO SCH (08:56)
[2019-09-11] MEDS: THIAMINE 100 MG TAB PO SCH ×2 (08:56→18:21)
[2019-09-11] MEDS: APIXABAN 5 MG TAB PO SCH ×2 (08:56→21:07)
[2019-09-11] MEDS: CYANOCOBALAMIN 500 MCG TAB PO SCH (08:56)
[2019-09-11] MEDS: SODIUM FERRIC GLUCONAT-SUCROSE 125 MG in SODIUM CHLORIDE 0.9% 100 ML IVPB SCH (08:57)
--- NOTE | 2019-09-11 09:36 | P.PN ---
Subjective Patient is seen in follow-up for acute kidney injury. Renal function is improving. Diuretics are held. Oral intake is fair. Nonoliguric. Continues to complain of pain in his lower extremity and numbness in his upper extremities. Vital signs are stable. General: The patient appeared well nourished and normally developed. HEENT: Head exam is unremarkable. Neck is without jugular venous distension. LUNGS: Lungs are clear to auscultation and percussion. Breath sounds decreased. HEART: Rate and Rhythm are regular. ABDOMEN: No distention noted. Nontender. EXTREMITITES: No clubbing, cyanosis, or edema. Generalized tenderness. Objective - Vital Signs Vital signs: Vital Signs Temp 99.5 F 09/11/19 05:00 Pulse 88 09/11/19 05:00 Resp 16 09/11/19 05:00 BP 101/58 09/11/19 05:00 Pulse Ox 91 L 09/11/19 05:00 Intake & Output 09/10/19 09/11/19 09/11/19 18:59 06:59 18:59 Intake Total 590 Output Total 400 501 Balance -400 89 Weight 87 kg 89 kg Intake: Oral 590 Output: Urine 400 500 Straight 500 Stool 0 1 Other: Voiding Method Indwelling Catheter Indwelling Catheter # Bowel Movements 1 - Labs CBC & Chem 7: 09/10/19 05:42 09/11/19 05:43 Labs: Abnormal Lab Results - Last 24 Hours (Table) 09/09/19 09/09/19 09/10/19 Range/Units 19:32 19:32 05:42 Haptoglobin 230.0 H (31.2-198.0) mg/dL Sodium (137-145) mmol/L BUN (9-20) mg/dL Creatinine (0.66-1.25) mg/dL Calcium (8.4-10.2) mg/dL Magnesium (1.6-2.3) mg/dL Ferritin 420.0 H (22.0-322.0) ng/mL Albumin (PEP) 2.15 L (3.80-4.90) g/dL [id number] 0.43 H (0.10-0.40) g/dL Gamma Globulins 0.68 L (0.70-1.50) g/dL IgA 437.0 H (60.0-350.0) mg/dL IgM 30.3 L (40.0-280.0) mg/dL Free [place] LC, Quant 6.58 H (0.57-2.63) mg/dL 09/11/19 Range/Units 05:43 Haptoglobin (31.2-198.0) mg/dL Sodium 135 L (137-145) mmol/L BUN 22 H (9-20) mg/dL Creatinine 1.59 H (0.66-1.25) mg/dL Calcium 7.1 L (8.4-10.2) mg/dL Magnesium 1.5 L (1.6-2.3) mg/dL Ferritin (22.0-322.0) ng/mL Albumin (PEP) (3.80-4.90) g/dL Mugjk-9-Mcdxaotaa (0.10-0.40) g/dL Gamma Globulins (0.70-1.50) g/dL IgA (60.0-350.0) mg/dL IgM (40.0-280.0) mg/dL Free [place]ambda LC, Quant (0.57-2.63) mg/dL Microbiology - Last 24 Hours (Table) 09/10/19 08:58 Blood Culture Gram Stain - Preliminary Blood 09/10/19 18:20 Urine Culture - Preliminary Urine,Voided 09/10/19 08:58 Blood Culture - Final Blood Assessment and Plan Plan: Assessment: 1. Acute kidney injury secondary to ATN secondary to hypotension and diuresis. He also received IV contrast on September 03. Creatinine peaked at 2.35 this admission and is down to 1.57 today. Unknown baseline renal function. Trace proteinuria on UA. No hydronephrosis noted on kidney ultrasound. 2. Peripheral vascular disease. Vascular surgery following. 3. Chronic diastolic CHF. 4. Alcohol abuse. 5. History of tobacco abuse. 6. Hypotension secondary to lisinopril and diuresis. Better. 7. Severe hypomagnesemia from poor oral intake and chronic alcohol abuse. 8. Anemia with severe iron deficiency. Plan: Discontinued lisinopril. Continue to hold diuretics. Follow-up cultures. Avoid nephrotoxins. Continue to monitor renal function and urine output. IV iron 3 doses. Second dose today. Replace magnesium. 2 g IV today.
--- NOTE | 2019-09-11 09:57 | P.PN ---
Subjective Progress Note Date: 09/11/19 Principal diagnosis: Leg pain Patient still having right groin pain especially with coughing. He is feeling stronger today. He was able to get up to the bedside commode with only one assist. This is an improvement for him according to the nurse. Objective - Vital Signs Vital signs: Vital Signs Temp 99.5 F 09/11/19 05:00 Pulse 88 09/11/19 05:00 Resp 16 09/11/19 05:00 BP 101/58 09/11/19 05:00 Pulse Ox 91 L 09/11/19 05:00 Intake & Output 09/10/19 09/11/19 09/11/19 18:59 06:59 18:59 Intake Total 590 Output Total 400 501 Balance -400 89 Weight 87 kg 89 kg Intake: Oral 590 Output: Urine 400 500 Straight 500 Stool 0 1 Other: Voiding Method Indwelling Catheter Indwelling Catheter # Bowel Movements 1 - Exam Constitutional: No acute distress, conversant, pleasant Eyes:Anicteric sclerae, moist conjunctiva, no lid-lag, PERRLA, ENMT: Oropharynx clear, no erythema, exudates Neck: Supple, FROM, no masses, or JVD, No carotid bruits, No thyromegaly Lungs: Clear to auscultation, Clear to percussion, Normal respiratory effort, no accessory muscle use Cardiovascular: Heart regular in rate and rhythm, No murmurs, gallops, or rubs, No peripheral edema Abdominal: Soft, Nontender, no guarding, rebound or rigidity, Normoactive bowel sounds, No hepatomegaly, No splenomegaly, No palpable mass Skin: Normal temperature, tone, texture, turgor, no induration, No subcutaneous nodules, No rash, lesions, No ulcers Extremities: No digital cyanosis, No clubbing, Pedal pulses intact and sym metrical, Radial pulses intact and symmetrical, No calf tenderness Psychiatric: Alert and oriented to person, place and time, appropriate affect, intact judgement Neuro: Muscles Strength 5/5 in all 4 extremities, Sensation to light touch grossly present throughout, Cranial nerves II-XII grossly intact, no focal sensory deficits - Labs CBC & Chem 7: 09/10/19 05:42 09/11/19 05:43 Labs: Abnormal Lab Results - Last 24 Hours (Table) 09/09/19 09/09/19 09/10/19 Range/Units 19:32 19:32 05:42 Haptoglobin 230.0 H (31.2-198.0) mg/dL Sodium (137-145) mmol/L BUN (9-20) mg/dL Creatinine (0.66-1.25) mg/dL Calcium (8.4-10.2) mg/dL Magnesium (1.6-2.3) mg/dL Ferritin 420.0 H (22.0-322.0) ng/mL Albumin (PEP) 2.15 L (3.80-4.90) g/dL Bxnvk-6-Xkckdnvwm 0.43 H (0.10-0.40) g/dL Gamma Globulins 0.68 L (0.70-1.50) g/dL IgA 437.0 H (60.0-350.0) mg/dL IgM 30.3 L (40.0-280.0) mg/dL Free Lambda LC, Quant 6.58 H (0.57-2.63) mg/dL 09/11/19 Range/Units 05:43 Haptoglobin (31.2-198.0) mg/dL Sodium 135 L (137-145) mmol/L BUN 22 H (9-20) mg/dL Creatinine 1.59 H (0.66-1.25) mg/dL Calcium 7.1 L (8.4-10.2) mg/dL Magnesium 1.5 L (1.6-2.3) mg/dL Ferritin (22.0-322.0) ng/mL Albumin (PEP) (3.80-4.90) g/dL Keunz-2-Jipikvizi (0.10-0.40) g/dL Gamma Globulins (0.70-1.50) g/dL IgA (60.0-350.0) mg/dL IgM (40.0-280.0) mg/dL Free Lambda LC, Quant (0.57-2.63) mg/dL Microbiology - Last 24 Hours (Table) 09/10/19 08:58 Blood Culture Gram Stain - Preliminary Blood 09/10/19 18:20 Urine Culture - Preliminary Urine,Voided 09/10/19 08:58 Blood Culture - Final Blood Assessment and Plan Plan: Acute on chronic diastolic CHF exacerbation -Echocardiogram shows preserved EF with grade 1 diastolic dysfunction -Lasix held due to acute renal failure CAP Antibiotics started Follow blood cultures stat Acute hypoxic respiratory failure Likely secondary to above Oxygen requirements improving, currently is 3 L. Troponin elevation and hypotension -Discussed with cardiology service, no need for intervention at this point. -Continue aspirin, Lipitor and metoprolol. -Discontinue Plavix -Discontinue amlodipine due to hypotension Bilateral lower extremity pain, likely due to peripheral vascular disease -Vascular surgery consulted--no intervention advised -Continue Eliquis and aspirin -Continue Statin -Pain control with [place] scheduled and Gabapentin -Follow-up PT and OT consultation Macrocytic anemia -B12 low normal, folate within normal limits. High methymalonic acid. -Likely vit B12 deficiency. -Started B12 supplementation. -Follow with hematology in 2 weeks after discharge. COSME Lasix and lisinopril on hold. Renal ultrasound showed no obstruction. Avoid nephrotoxins. Continue to monitor renal function and urine output. Nephrology following General weakness Likely secondary to all of the above Encouraged to ambulate PT Urinary retention -Rooney catheter, d/c once stable ETOH abuse Advised to quit DVT prophylaxis On anticoagulation
[2019-09-11] MEDS: AZITHROMYCIN 500 MG in SODIUM CHLORIDE 0.9% 250 ML IVPB SCH (11:18)
[2019-09-11] MEDS: MAGNESIUM SULFATE-D5W PMX 1 GM in DEXTROSE/WATER 1 100ML.BAG IVPB SCH ×2 (12:49→14:29)
--- NOTE | 2019-09-11 17:39 | P.PN ---
Subjective Progress Note Date: 09/11/19 Principal diagnosis: Anemia CBC Ordered today Objective - Vital Signs Vital signs: Vital Signs Temp 98.8 F 09/11/19 11:06 Pulse 72 09/11/19 16:00 Resp 16 09/11/19 16:00 BP 113/65 09/11/19 11:06 Pulse Ox 97 09/11/19 11:06 Intake & Output 09/10/19 09/11/19 09/11/19 18:59 06:59 18:59 Intake Total 590 1220 Output Total 853 876 4951 Balance -400 89 -882 Weight 87 kg 89 kg Intake: Intake, IV Titration 600 Amount Azithromycin 500 mg In 250 Sodium Chloride 0.9% 250 ml @ 250 mls/hr IVPB DAILY@1100 [facility] Rx#: [id number] Magnesium Sulfate-D5w Pmx 200 1 gm In Dextrose/Water 1 100ml.bag @ 100 mls/hr IVPB Q1H [facility] Rx#: [id number] Sodium Ferric Gluconat- 100 Sucrose 125 mg In Sodium Chloride 0.9% 100 ml @ 100 mls/hr IVPB DAILY [facility] Rx#:[id number] cefTRIAXone 1 gm In 50 Sodium Chloride 0.9% 50 ml @ 100 mls/hr IVPB 1200 [facility] Rx#:[id number] Oral 590 620 Output: Urine 623 033 4845 Straight 500 700 Stool 0 1 2 Other: Voiding Method Indwelling Catheter Indwelling Catheter Indwelling Catheter # Bowel Movements 1 - Exam Gen: alert, nad Head: ncat neck supple Lungs: diminished, No increased effort Abd: Soft Ext: gen edema Heart irr psych sleepy - Labs CBC & Chem 7: 09/10/19 05:42 09/11/19 05:43 Labs: Abnormal Lab Results - Last 24 Hours (Table) 09/11/19 Range/Units 05:43 Sodium 135 L (137-145) mmol/L BUN 22 H (9-20) mg/dL Creatinine 1.59 H (0.66-1.25) mg/dL Calcium 7.1 L (8.4-10.2) mg/dL Magnesium 1.5 L (1.6-2.3) mg/dL Microbiology - Last 24 Hours (Table) 09/10/19 08:58 Blood Culture Gram Stain - Preliminary Blood Blood Culture - Preliminary Coagulase Negative Staph 09/10/19 08:49 Blood Culture - Preliminary Blood No Growth after 24 hours 09/10/19 18:20 Urine Culture - Preliminary Urine,Voided 09/10/19 08:58 Blood Culture - Final Blood Assessment and Plan Plan: Assessment and recommendations: Macrocytic Anemia: - Known underlying ETOH and Liver Disease - Further work-up for other etiologies, patient also on anticoagulation - B12 deficiency, B12 IM secondary to inability to asborb PO - COntinue Thiamine and folate - Monitor CBC and follow-up in office in 2 weeks to continue supplementation and if he stops drinking and counts do not recover would consider BM biopsy, this was all explained to him and understanding stated. - Awaiting CBC today, ordered tomorrow today Physician Attest: I have completed the full history and physical and developed the full assessment and plan: Agree with dictation, dictated as a scribe.
[2019-09-11] MEDS: ATORVASTATIN 20 MG TAB PO SCH (21:07)
[2019-09-12 07:27] LABS: Anisocytosis Slight; Basophils % (A) 0 %; Eosinophils # (A) 0.1 k/uL (0-0.7); Eosinophils % (A) 3 %; HGB 7.8 gm/dL (13.0-17.5); Hypochromasia Slight; Lymphocytes # (A) 1.1 k/uL (1.0-4.8); Lymphocytes % (A) 19 %; MCH 39.2 pg (25.0-35.0); MCHC 32.6 g/dL (31.0-37.0); MCV 120.2 fL (80.0-100.0); Macrocytosis Marked; Mean Platelet Volume 8.4; Monocytes # (A) 0.4 k/uL (0-1.0); Monocytes % (A) 8 %; Neutrophils # (A) 3.7 k/uL (1.3-7.7); Neutrophils % (A) 68 %; Platelet Count 318 k/uL (150-450); WBC 5.4 k/uL (3.8-10.6)
[2019-09-12 07:36] LABS: Albumin 2.2 g/dL (3.5-5.0); Calcium 7.8 mg/dL (8.4-10.2); Magnesium 1.9 mg/dL (1.6-2.3); Potassium 4.1 mmol/L (3.5-5.1); Total Bilirubin 0.4 mg/dL (0.2-1.3); Total Protein 4.8 g/dL (6.3-8.2)
[2019-09-12] MEDS: SODIUM FERRIC GLUCONAT-SUCROSE 125 MG in SODIUM CHLORIDE 0.9% 100 ML IVPB SCH (08:39)
[2019-09-12] MEDS: PANTOPRAZOLE 40 MG TABLET PO SCH (09:19)
[2019-09-12] MEDS: ASPIRIN 81 MG PO SCH (09:21)
[2019-09-12] MEDS: CYANOCOBALAMIN 500 MCG TAB PO SCH (09:21)
[2019-09-12] MEDS: GABAPENTIN 300 MG CAP PO SCH ×2 (09:21→20:40)
[2019-09-12] MEDS: MAGNESIUM OXIDE 400 MG TAB PO SCH ×2 (09:21→20:40)
[2019-09-12] MEDS: CYANOCOBALAMIN 1,000 MCG/ML 1 ML VIAL IM SCH (09:22)
[2019-09-12] MEDS: METOPROLOL SUCCINATE (ER) 25 MG TAB.ER.24H PO SCH (09:22)
[2019-09-12] MEDS: THIAMINE 100 MG TAB PO SCH ×2 (09:22→17:54)
[2019-09-12] MEDS: APIXABAN 5 MG TAB PO SCH ×2 (09:22→20:40)
[2019-09-12] MEDS: LORATADINE 10 MG TAB PO SCH (09:22)
[2019-09-12] MEDS: guaiFENesin-Coden 100-10MG/5ML 10 ML CUP PO PRN (09:22)
[2019-09-12] MEDS: HYDROcodone/APAP 10-325MG 1 EACH TAB PO PRN (09:28)
[2019-09-12] MEDS: AZITHROMYCIN 500 MG in SODIUM CHLORIDE 0.9% 250 ML IVPB SCH (09:42)
--- NOTE | 2019-09-12 10:14 | XR ---
EXAMINATION TYPE: XR chest 1V portable DATE OF EXAM: 09/12/2019 COMPARISON: 09/01/2019 HISTORY: Pneumonia. Follow-up exam. TECHNIQUE: Single frontal view of the chest is obtained. FINDINGS: Vague patchy areas of airspace disease in the upper lobes have resolved. Obscuration of th e left heart border is now seen with left basilar opacity. Strand-like linear horizontally oriented r ight basilar atelectasis may be on the basis of low lung volumes. Cardiomediastinal silhouette is mil dly enlarged with post CABG change. Minimal elevation of the right hemidiaphragm is stable. IMPRESSION: Upper lung patchy opacities have resolved however there is a worsening retrocardiac opac ity with new obscuration of the left heart border that may represent atelectasis or pneumonia.
[2019-09-12] MEDS: FLUTICASONE 50MCG/SPRAY NASAL 16GM EA NOSTRIL SCH (10:48)
--- NOTE | 2019-09-12 11:11 | P.PN ---
Subjective Patient is seen in follow-up for acute kidney injury. Renal function is improving. Diuretics are held. Oral intake is fair. Nonoliguric. Continues to complain of pain in his lower extremity and numbness in his upper extremities. No vomiting or diarrhea. Vital signs are stable. General: The patient appeared well nourished and normally developed. HEENT: Head exam is unremarkable. Neck is without jugular venous distension. LUNGS: Lungs are clear to auscultation and percussion. Breath sounds decreased. HEART: Rate and Rhythm are regular. ABDOMEN: No distention noted. Nontender. EXTREMITITES: No clubbing, cyanosis, or edema. Generalized tenderness. Objective - Vital Signs Vital signs: Vital Signs Temp 99.7 F H 09/12/19 04:30 Pulse 78 09/12/19 04:30 Resp 18 09/12/19 04:30 BP 114/57 09/12/19 04:30 Pulse Ox 93 L 09/12/19 04:30 Intake & Output 09/11/19 09/12/19 09/12/19 18:59 06:59 18:59 Intake Total 1220 100 Output Total 2102 550 Balance -882 -450 Weight 69 kg Intake: Intake, IV Titration 600 Amount Azithromycin 500 mg In 250 Sodium Chloride 0.9% 250 ml @ 250 mls/hr IVPB DAILY@1100 [facility] Rx#: [id number] Magnesium Sulfate-D5w Pmx 200 1 gm In Dextrose/Water 1 100ml.bag @ 100 mls/hr IVPB Q1H [facility] Rx#: [id number] Sodium Ferric Gluconat- 100 Sucrose 125 mg In Sodium Chloride 0.9% 100 ml @ 100 mls/hr IVPB DAILY [facility] Rx#:[id number] cefTRIAXone 1 gm In 50 Sodium Chloride 0.9% 50 ml @ 100 mls/hr IVPB 1200 [facility] Rx#:[id number] Oral 620 100 Output: Urine 2100 550 Straight 700 Stool 2 Other: Voiding Method Indwelling Catheter Indwelling Catheter # Bowel Movements 1 - Labs CBC & Chem 7: 09/12/19 05:29 09/12/19 05:29 Labs: Abnormal Lab Results - Last 24 Hours (Table) 09/09/19 09/12/19 09/12/19 Range/Units 19:32 05: 05:29 RBC 2.00 L (4.30-5.90) m/uL Hgb 7.8 L (13.0-17.5) gm/dL Hct 24.0 L (39.0-53.0) % MCV 120.2 H (80.0-100.0) fL MCH 39.2 H (25.0-35.0) pg RDW 16.0 H (11.5-15.5) % Macrocytosis Marked A Chloride 108 H (98-107) mmol/L Creatinine 1.39 H (0.66-1.25) mg/dL Calcium 7.8 L (8.4-10.2) mg/dL Alkaline Phosphatase 33 L (38-126) U/L Total Protein 4.8 L (6.3-8.2) g/dL Albumin 2.2 L (3.5-5.0) g/dL Methylmalonic Acid 0.54 H (<0.40) umol/L Microbiology - Last 24 Hours (Table) 09/10/19 08:49 Blood Culture - Preliminary Blood No Growth after 48 hours 09/10/19 18:20 Urine Culture - Preliminary Urine,Voided Group D Enterococcus 09/10/19 08:58 Blood Culture Gram Stain - Preliminary Blood Blood Culture - Preliminary Coagulase Negative Staph Assessment and Plan Plan: Assessment: 1. Acute kidney injury secondary to ATN secondary to hypotension and diuresis. He also received IV contrast on September 03. Creatinine peaked at 2.35 this admission and is down to 1.39 today. Unknown baseline renal function. Trace proteinuria on UA. No hydronephrosis noted on kidney ultrasound. 2. Peripheral vascular disease. Vascular surgery following. 3. Chronic diastolic CHF. 4. Alcohol abuse. 5. History of tobacco abuse. 6. Hypotension secondary to lisinopril and diuresis. Better. 7. Severe hypomagnesemia from poor oral intake and chronic alcohol abuse. Improved post replacement. Maintain on oral magnesium oxide. 8. Anemia with severe iron deficiency. 9. UTI with urine culture positive for group B enterococcus. Blood culture positive for coag-negative staph. Maintained on antibiotics. Plan: Discontinued lisinopril. Continue to hold diuretics. Follow-up cultures. Avoid nephrotoxins. Continue to monitor renal function and urine output. IV iron 3 doses. Third dose today. Discontinue Rooney catheter and monitor for retention.
--- NOTE | 2019-09-12 16:00 | PN ---
PROGRESS NOTE DATE OF SERVICE: 09/12/2019 Patient is a 68-year-old white male who was seen in followup today. He was seen in consultation 2 days ago for anemia. Patient denies any abdominal pain, reports no nausea, vomiting. He states that his appetite has not been well. He also has acute kidney injury. Nephrology following the patient closely. He denies any rectal bleeding or melena. PHYSICAL EXAMINATION: Appears comfortable, in no apparent distress. Vital signs are stable, blood pressure is 90/50, pulse rate 57, temperature is 98.2. HEENT: Examination remarkable, conjunctivae are pink, sclerae nonicteric. Oral cavity no lesions. NECK: No JVD or lymph node enlargement. CHEST: Clear to auscultation. HEART: Regular rate and rhythm. ABDOMEN: Soft. Bowel sounds are positive. No organomegaly. EXTREMITIES: No pedal edema. SKIN: No rashes. NEUROLOGIC: Alert and oriented x3. No focal deficits. LAB DATA: WBC 5.4, hemoglobin 7.8, platelets normal. BUN and creatinine of 17 and 1.73 respectively. IMPRESSION: 1. Macrocytic anemia, probably related to underlying chronic liver disease and history of alcohol abuse. Clinically, no evidence of active bleeding. This is not consistent with iron deficiency anemia, most likely anemia of chronic disease. 2. Acute kidney injury, gradually improving. 3. History of heavy alcohol abuse. RECOMMENDATION: 1. Continue to monitor CBC on a daily basis. 2. Patient was advised to have a colonoscopy done on outpatient basis. Has never had a screening colonoscopy in the past. 3. In regard to anemia, will await her recommendations from Hematology. 4. Will sign off at this time. Please call us if needed. Thank you for this consultation. MMODL / IJN: [id number] /
--- NOTE | 2019-09-12 16:14 | P.PN ---
Subjective Progress Note Date: 09/12/19 Principal diagnosis: Anemia Sleeping, able to be awakened but not very interested in conversation Objective - Vital Signs Vital signs: Vital Signs Temp 98.2 F 09/12/19 12:32 Pulse 67 09/12/19 12:32 Resp 19 09/12/19 12:32 BP 90/50 09/12/19 12:32 Pulse Ox 95 09/12/19 12:32 Intake & Output 09/11/19 09/12/19 09/12/19 18:59 06:59 18:59 Intake Total 1220 100 Output Total 2102 550 400 Balance -882 -450 -400 Weight 69 kg Intake: Intake, IV Titration 600 Amount Azithromycin 500 mg In 250 Sodium Chloride 0.9% 250 ml @ 250 mls/hr IVPB DAILY@1100 [facility] Rx#: [id number] Magnesium Sulfate-D5w Pmx 200 1 gm In Dextrose/Water 1 100ml.bag @ 100 mls/hr IVPB Q1H [facility] Rx#: [id number] Sodium Ferric Gluconat- 100 Sucrose 125 mg In Sodium Chloride 0.9% 100 ml @ 100 mls/hr IVPB DAILY [facility] Rx#:[id number] cefTRIAXone 1 gm In 50 Sodium Chloride 0.9% 50 ml @ 100 mls/hr IVPB 1200 [facility] Rx#:[id number] Oral 620 100 Output: Urine 2100 550 400 Straight 700 Stool 2 Other: Voiding Method Indwelling Catheter Indwelling Catheter # Bowel Movements 1 - Exam Gen: alert, nad Head: ncat neck supple Lungs: diminished, No increased effort Abd: Soft Ext: gen edema Heart irr psych sleepy - Labs CBC & Chem 7: 09/12/19 05:29 09/12/19 05:29 Labs: Abnormal Lab Results - Last 24 Hours (Table) 09/09/19 09/12/19 09/12/19 Range/Units 19:32 05:29 05:29 RBC 2.00 L (4.30-5.90) m/uL Hgb 7.8 L (13.0-17.5) gm/dL Hct 24.0 L (39.0-53.0) % MCV 120.2 H (80.0-100.0) fL MCH 39.2 H (25.0-35.0) pg RDW 16.0 H (11.5-15.5) % Macrocytosis Marked A Chloride 108 H (98-107) mmol/L Creatinine 1.39 H (0.66-1.25) mg/dL Calcium 7.8 L (8.4-10.2) mg/dL Alkaline Phosphatase 33 L (38-126) U/L Total Protein 4.8 L (6.3-8.2) g/dL Albumin 2.2 L (3.5-5.0) g/dL Methylmalonic Acid 0.54 H (<0.40) umol/L Microbiology - Last 24 Hours (Table) 09/10/19 08:49 Blood Culture - Preliminary Blood No Growth after 48 hours 09/10/19 18:20 Urine Culture - Preliminary Urine,Voided Group D Enterococcus 09/10/19 08:58 Blood Culture Gram Stain - Preliminary Blood Blood Culture - Preliminary Coagulase Negative Staph Assessment and Plan Plan: Assessment and recommendations: Macrocytic Anemia: - Known underlying ETOH and Liver Disease - Further work-up for other etiologies, patient also on anticoagulation - B12 deficiency, B12 IM secondary to inability to asborb PO - COntinue Thiamine and folate - Monitor CBC and follow-up in office in 2 weeks to continue supplementation and if he stops drinking and counts do not recover would consider BM biopsy, this was all explained to him and understanding stated. - Awaiting CBC today, ordered tomorrow today Plan: Will set him up for follow-up and B12 in office Physician Attest: I have completed the full history and physical and developed the full assessment and plan: Agree with dictation, dictated as a scribe.
--- NOTE | 2019-09-12 17:00 | P.PN ---
Subjective Progress Note Date: 09/12/19 (delayed charting seen at 0930) Principal diagnosis: leg pain Patient is a 68-year-old male with known coronary artery disease status post stenting, congestive heart failure, prior pulmonary embolism, and peripheral vascular disease who presented to the emergency department with complaints of long-standing hip and leg pain. In the ER he underwent an extensive evaluation. Chest x-ray showed mild perihilar density, ankle x-ray demonstrated mild soft tissue swelling of the left ankle, hips and pelvis showed moderate right hip and mild left hip osteoarthritis. CTA of the abdomen and pelvis with runoff showed complete occlusion of the bilateral superficial femoral arteries with collateral vascular, occlusion of the distal right peroneal artery just proximal to the ankle joint, extensive atherosclerosis of the abdominal aorta and 50% renal stenosis bilaterally, possible underlying inflammatory bowel disease with submucosal deposition of fat in the right hemic olon and terminal ileum, and nonobstructing left renal calculus. He is admitted for bilateral lower extremity pain likely due to peripheral vascular disease. He is also found to have macrocytic anemia and a B12 and folate were ordered. He was seen by vascular surgery who recommended obtaining an ROBYN but no need for acute or emergent intervention as patient likely has neuropathy. In his lower e xtremity pain he underwent Echocardiogram which showed borderline LVH, ejection fraction 55-60%, grade 1 diastolic dysfunction. On 09/05 he developed some encephalopathy which was felt to be likely to alcohol withdrawal versus pain medication. He was started on thiamine and CIWA protocol. Chest x-ray on 09/05 showed bibasilar airspace disease. On 09/06 was felt that he likely had an exacerbation of his congestive heart failure and he was started on IV Lasix. He was also noted to have urinary retention a Rooney catheter was placed. His B12 and folic acid were normal. He was started on iron supplementation with B12 supplementation. SPEP and methylmalonic acid were ordered. He did develop some hypotension medications were adjusted. Nephrology was consulted as the patient had increasing creatinine. They recommended discontinuing his lisinopril and holding Lasix. Cardiology was consulted who agreed with acute on chronic diastolic congestive heart failure associated with acute kidney injury and elevated troponin secondary to renal dysfunction. They decreased his metoprolol and agreed with holding Lasix. Abdominal x-ray on 09/07 showed no free air or bowel obstruction with moderate stool burden and patchy bibasilar infiltrates. Repeat chest x-ray on 09/08 showed volume loss of the right base with mild patchy density right greater than left. Renal ultrasound 09/08-some chronic renal changes. On 09/09 was found to have pneumonia and was started on antibiotics and blood cultures were ordered. Hematology was consulted who recommended IM B12 supplementation and follow-up in office in 2 weeks. Morning of 09/12/2019 complained of worsening nasal congestion and rhinorrhea. Patient seen and examined at bedside. He complains of runny nose, stuffy nose, and cough productive of sputum. He is unsure what color his he constantly swallows it. He continues to have some leg pain. Denies any nausea, vomiting, diarrhea, or abdominal pain. He states that he has had chronic losses his taste and smell since his heart surgery. Objective - Vital Signs Vital signs: Vital Signs Temp 98.2 F 09/12/19 12:32 Pulse 67 09/12/19 12:32 Resp 19 09/12/19 12:32 BP 90/50 09/12/19 12:32 Pulse Ox 95 09/12/19 12:32 Intake & Output 09/11/19 09/12/19 09/12/19 18:59 06:59 18:59 Intake Total 1220 100 Output Total 2102 550 400 Balance -882 -450 -400 Weight 69 kg Intake: Intake, IV Titration 600 Amount Azithromycin 500 mg In 250 Sodium Chloride 0.9% 250 ml @ 250 mls/hr IVPB DAILY@1100 [facility] Rx#: [id number] Magnesium Sulfate-D5w Pmx 200 1 gm In Dextrose/Water 1 100ml.bag @ 100 mls/hr IVPB Q1H [facility] Rx#: [id number] Sodium Ferric Gluconat- 100 Sucrose 125 mg In Sodium Chloride 0.9% 100 ml @ 100 mls/hr IVPB DAILY [facility] Rx#:[id number] cefTRIAXone 1 gm In 50 Sodium Chloride 0.9% 50 ml @ 100 mls/hr IVPB 1200 [facility] Rx#:[id number] Oral 620 100 Output: Urine 2100 550 400 Straight 700 Stool 2 Other: Voiding Method Indwelling Catheter Indwelling Catheter # Bowel Movements 1 - Labs CBC & Chem 7: 09/12/19 05:29 09/12/19 05:29 Labs: Abnormal Lab Results - Last 24 Hours (Table) 09/09/19 09/12/19 09/12/19 Range/Units 19:32 05:29 05:29 RBC 2.00 L (4.30-5.90) m/uL Hgb 7.8 L (13.0-17.5) gm/dL Hct 24.0 L (39.0-53.0) % MCV 120.2 H (80.0-100.0) fL MCH 39.2 H (25.0-35.0) pg RDW 16.0 H (11.5-15.5) % Macrocytosis Marked A Chloride 108 H (98-107) mmol/L Creatinine 1.39 H (0.66-1.25) mg/dL Calcium 7.8 L (8.4-10.2) mg/dL Alkaline Phosphatase 33 L (38-126) U/L Total Protein 4.8 L (6.3-8.2) g/dL Albumin 2.2 L (3.5-5.0) g/dL Methylmalonic Acid 0.54 H (<0.40) umol/L Microbiology - Last 24 Hours (Table) 09/10/19 08:49 Blood Culture - Preliminary Blood No Growth after 48 hours 09/10/19 18:20 Urine Culture - Preliminary Urine,Voided Group D Enterococcus Assessment and Plan Assessment: Diastolic congestive heart failure without it exacerbation, ejection fraction 50-55% -Currently euvolemic with BKA and Lasix on hold -Strict I's and O's, daily weights -Continue with metoprolol -No lisinopril secondary to COSME -Cardiology recommendations appreciated, no need for plavix last stent > 1 year ago. Possible Pneumonia/sinusitis with Acute hypoxic respiratory failure - rocephin, zithromax - repeat CXR - sputum culture - 1/2 blood cultures + for staph epi likely contaminant - wean O2 as able - flonase - claritin Group D enterococcus UTI - Await sensitivities - rocephin Bilateral leg pain -Likely component of neuropathy and peripheral arterial disease -Surgery recommendations appreciated: Outpatient angiogram -Pain control with Neurontin - eliquis and ASA Macrocytic anemia -Likely secondary to early B12 deficiency -Oncology recommendations appreciated: I am B12 injections, outpatient follow-up in 2 weeks after has been off alcohol -Follow CBC -Folic acid normal, appears consistent with chronic disease Bilateral lower extremity pain, likely due to peripheral vascular disease -Vascular surgery consulted--no intervention advised -Continue Eliquis and aspirin -Continue Statin -Pain control with [place] scheduled and Gabapentin -Follow-up PT and OT consultation Macrocytic anemia -B12 low normal, folate within normal limits. High methymalonic acid. -Likely vit B12 deficiency. -Started B12 supplementation. -Follow with hematology in 2 weeks after discharge. COSME due to hypotension and ATN - Nephro recs appreciated - improving - continue to hold lasix and lisinopril - avoid additional nephrotoxic agents - complete IVF - renal ultrasound without obstruction Debilty with generalized weakness - PT/OT - Fall precuations Acute urinary retention - Rooney d/c 09/11 monitor PVR ETOH abuse - was on CIWA, no loner requiring - [place] Troponin elevation and hypotension - not refelctive of ACS no need to follow DVT prophylaxis: shon Discussed with: patient, nursing Anticipated discharge: 2-[address]: SNF A total of 35 minutes was spent on the care of this complex patient more than 50% of the time was spent in counseling and care coordination.
[2019-09-12] MEDS: ATORVASTATIN 20 MG TAB PO SCH (20:40)
[2019-09-13 06:43] LABS: Anisocytosis Slight; Basophils % (A) 1 %; Eosinophils # (A) 0.2 k/uL (0-0.7); Eosinophils % (A) 3 %; HCT 25.2 % (39.0-53.0); HGB 7.7 gm/dL (13.0-17.5); Hypochromasia Moderate; Lymphocytes # (A) 1.2 k/uL (1.0-4.8); Lymphocytes % (A) 21 %; MCH 37.1 pg (25.0-35.0); MCHC 30.6 g/dL (31.0-37.0); Macrocytosis Marked; Mean Platelet Volume 8.4; Monocytes # (A) 0.4 k/uL (0-1.0); Monocytes % (A) 8 %; Neutrophils # (A) 3.7 k/uL (1.3-7.7); Neutrophils % (A) 65 %; Platelet Count 358 k/uL (150-450); RBC 2.08 m/uL (4.30-5.90); RDW 16.6 % (11.5-15.5); WBC 5.6 k/uL (3.8-10.6)
[2019-09-13 06:49] LABS: MCV 121.3 fL (80.0-100.0)
[2019-09-13 07:00] LABS: Albumin 2.3 g/dL (3.5-5.0); Calcium 8.1 mg/dL (8.4-10.2); Total Bilirubin 0.4 mg/dL (0.2-1.3); Total Protein 4.9 g/dL (6.3-8.2)
[2019-09-13] MEDS: ASPIRIN 81 MG PO SCH (08:26)
[2019-09-13] MEDS: METOPROLOL SUCCINATE (ER) 25 MG TAB.ER.24H PO SCH (08:26)
[2019-09-13] MEDS: LORATADINE 10 MG TAB PO SCH (08:27)
[2019-09-13] MEDS: PANTOPRAZOLE 40 MG TABLET PO SCH (08:27)
[2019-09-13] MEDS: MAGNESIUM OXIDE 400 MG TAB PO SCH ×2 (08:27→20:15)
[2019-09-13] MEDS: THIAMINE 100 MG TAB PO SCH ×2 (08:27→17:26)
[2019-09-13] MEDS: GABAPENTIN 300 MG CAP PO SCH ×2 (08:27→20:16)
[2019-09-13] MEDS: APIXABAN 5 MG TAB PO SCH ×2 (08:27→20:16)
[2019-09-13] MEDS: SODIUM FERRIC GLUCONAT-SUCROSE 125 MG in SODIUM CHLORIDE 0.9% 100 ML IVPB SCH (08:28)
[2019-09-13] MEDS: CYANOCOBALAMIN 500 MCG TAB PO SCH (08:28)
[2019-09-13] MEDS: AZITHROMYCIN 500 MG TAB PO SCH (08:28)
[2019-09-13] MEDS: CYANOCOBALAMIN 1,000 MCG/ML 1 ML VIAL IM SCH (08:28)
[2019-09-13] MEDS: FLUTICASONE 50MCG/SPRAY NASAL 16GM EA NOSTRIL SCH (08:32)
[2019-09-13] MEDS: guaiFENesin-Coden 100-10MG/5ML 10 ML CUP PO PRN ×2 (08:51→17:36)
[2019-09-13] MEDS: AMPICILLIN-SULBACTAM 3 GM in SODIUM CHLORIDE 0.9% 100 ML IVPB SCH ×2 (12:09→17:26)
--- NOTE | 2019-09-13 14:01 | P.PN ---
Subjective Progress Note Date: 09/13/19 Follow-up for COSME Objective - Vital Signs Vital signs: Vital Signs Temp 98.2 F 09/13/19 11:47 Pulse 81 09/13/19 11:47 Resp 17 09/13/19 11:47 BP 112/57 09/13/19 11:47 Pulse Ox 98 09/13/19 11:47 Intake & Output 09/12/19 09/13/19 09/13/19 18:59 06:59 18:59 Intake Total 2220 Output Total 1203 1 Balance 1017 -1 Weight 89 kg Intake: Intake, IV Titration 400 Amount Azithromycin 500 mg In 250 Sodium Chloride 0.9% 250 ml @ 250 mls/hr IVPB DAILY@1100 [facility] Rx#: [id number] Sodium Ferric Gluconat- 100 Sucrose 125 mg In Sodium Chloride 0.9% 100 ml @ 100 mls/hr IVPB DAILY [facility] Rx#:[id number] cefTRIAXone 1 gm In 50 Sodium Chloride 0.9% 50 ml @ 100 mls/hr IVPB 1200 [facility] Rx#:[id number] Oral 1820 Output: Urine 1200 Stool 3 1 Other: Voiding Method Indwelling Catheter Urinal Urinal # Voids 2 - Exam No acute distress S1-S2 heard Lungs clear No edema - Labs CBC & Chem 7: 09/13/19 05:21 09/13/19 05:21 Labs: Abnormal Lab Results - Last 24 Hours (Table) 09/13/19 09/13/19 Range/Units 05:21 05:21 RBC 2.08 L (4.30-5.90) m/uL Hgb 7.7 L (13.0-17.5) gm/dL Hct 25.2 L (39.0-53.0) % MCV 121.3 H (80.0-100.0) fL MCH 37.1 H (25.0-35.0) pg MCHC 30.6 L (31.0-37.0) g/dL RDW 16.6 H (11.5-15.5) % Macrocytosis Marked A Calcium 8.1 L (8.4-10.2) mg/dL Alkaline Phosphatase 31 L (38-126) U/L Total Protein 4.9 L (6.3-8.2) g/dL Albumin 2.3 L (3.5-5.0) g/dL Microbiology - Last 24 Hours (Table) 09/10/19 08:49 Blood Culture - Preliminary Blood No Growth after 72 hours 09/10/19 18:20 Urine Culture - Final Urine,Voided Enterococcus faecalis 09/10/19 08:58 Blood Culture Gram Stain - Final Blood Blood Culture - Final Coagulase Negative Staph Assessment and Plan Assessment: #1 nonoliguric acute kidney injury secondary to ischemic ATN. Baseline creatinine unknown. #2 peripheral vascular disease. #3 chronic diastolic CHF #4 alcohol abuse #5 anemia Plan: #1 renal functions improving. Continue to hold diuretics and lisinopril. 2 avoid nephrotoxic agents and hypotensive episodes
--- NOTE | 2019-09-13 14:43 | P.PN ---
Subjective Progress Note Date: 09/13/19 (delayed charting seen at 0930) Principal diagnosis: leg pain Patient is a 68-year-old male with known coronary artery disease status post stenting, congestive heart failure, prior pulmonary embolism, and peripheral vascular disease who presented to the emergency department with complaints of long-standing hip and leg pain. In the ER he underwent an extensive evaluation. Chest x-ray showed mild perihilar density, ankle x-ray demonstrated mild soft tissue swelling of the left ankle, hips and pelvis showed moderate right hip and mild left hip osteoarthritis. CTA of the abdomen and pelvis with runoff showed complete occlusion of the bilateral superficial femoral arteries with collateral vascular, occlusion of the distal right peroneal artery just proximal to the ankle joint, extensive atherosclerosis of the abdominal aorta and 50% renal stenosis bilaterally, possible underlying inflammatory bowel disease with submucosal deposition of fat in the right hemic olon and terminal ileum, and nonobstructing left renal calculus. He is admitted for bilateral lower extremity pain likely due to peripheral vascular disease. He is also found to have macrocytic anemia and a B12 and folate were ordered. He was seen by vascular surgery who recommended obtaining an ROBYN but no need for acute or emergent intervention as patient likely has neuropathy. In his lower e xtremity pain he underwent Echocardiogram which showed borderline LVH, ejection fraction 55-60%, grade 1 diastolic dysfunction. On 09/05 he developed some encephalopathy which was felt to be likely to alcohol withdrawal versus pain medication. He was started on thiamine and CIWA protocol. Chest x-ray on 09/05 showed bibasilar airspace disease. On 09/06 was felt that he likely had an exacerbation of his congestive heart failure and he was started on IV Lasix. He was also noted to have urinary retention a Rooney catheter was placed. His B12 and folic acid were normal. He was started on iron supplementation with B12 supplementation. SPEP and methylmalonic acid were ordered. He did develop some hypotension medications were adjusted. Nephrology was consulted as the patient had increasing creatinine. They recommended discontinuing his lisinopril and holding Lasix. Cardiology was consulted who agreed with acute on chronic diastolic congestive heart failure associated with acute kidney injury and elevated troponin secondary to renal dysfunction. They decreased his metoprolol and agreed with holding Lasix. Abdominal x-ray on 09/07 showed no free air or bowel obstruction with moderate stool burden and patchy bibasilar infiltrates. Repeat chest x-ray on 09/08 showed volume loss of the right base with mild patchy density right greater than left. Renal ultrasound 09/08-some chronic renal changes. On 09/09 was found to have pneumonia and was started on antibiotics and blood cultures were ordered. Hematology was consulted who recommended IM B12 supplementation and follow-up in office in 2 weeks. Morning of 09/12/2019 complained of worsening nasal congestion and rhinorrhea he was started on Flonase. Repeat CXR showed that right sided infiltrate had resolved and possible retorocardiac infiltrate. Urine culture came back with enterococcus as Cialis antibiotics were transitioned to Unasyn, and Augmentin was maintained for possible pneumonia. Patient seen and examined at bedside. Runny and stuffy nose and cough are better today after nasal steroid was started. He still complains of some leg pain. No nausea or vomiting. Eating well today. Feeling tired overall. Objective - Vital Signs Vital signs: Vital Signs Temp 98.2 F 09/13/19 11:47 Pulse 81 09/13/19 11:47 Resp 17 09/13/19 11:47 BP 112/57 09/13/19 11:47 Pulse Ox 98 09/13/19 11:47 Intake & Output 09/12/19 09/13/19 09/13/19 18:59 06:59 18:59 Intake Total 2220 Output Total 1203 1 Balance 1017 -1 Weight 89 kg Intake: Intake, IV Titration 400 Amount Azithromycin 500 mg In 250 Sodium Chloride 0.9% 250 ml @ 250 mls/hr IVPB DAILY@1100 [facility] Rx#: [id number] Sodium Ferric Gluconat- 100 Sucrose 125 mg In Sodium Chloride 0.9% 100 ml @ 100 mls/hr IVPB DAILY [facility] Rx#:[id number] cefTRIAXone 1 gm In 50 Sodium Chloride 0.9% 50 ml @ 100 mls/hr IVPB 1200 [facility] Rx#:[id number] Oral 1820 Output: Urine 1200 Stool 3 1 Other: Voiding Method Indwelling Catheter Urinal # Voids 2 - Exam General: ill appearing, no distress, appears at stated age Derm: warm, dry Head: atraumatic, normocephalic, symmetric Eyes: EOMI, no lid lag, anicteric sclera Mouth: no lip lesion, mucus membranes moist Cardiovascular: S1S2 reg, no murmur, positive posterior tibial pulse bilateral, Lungs: Course bs bilateral, no accessory muscle use Abdominal: soft, nontender to palpation, no guarding, no appreciable organomegaly Ext: no gross muscle atrophy, no edema, no contractures Neuro: CN II-XI grossly intact, no focal neuro deficits Psych: Alert, oriented, appropriate affect - Labs CBC & Chem 7: 09/13/19 05:21 09/13/19 05:21 Labs: Abnormal Lab Results - Last 24 Hours (Table) 09/13/19 09/13/19 Range/Units 05:21 05:21 RBC 2.08 L (4.30-5.90) m/uL Hgb 7.7 L (13.0-17.5) gm/dL Hct 25.2 L (39.0-53.0) % MCV 121.3 H (80.0-100.0) fL MCH 37.1 H (25.0-35.0) pg MCHC 30.6 L (31.0-37.0) g/dL RDW 16.6 H (11.5-15.5) % Macrocytosis Marked A Calcium 8.1 L (8.4-10.2) mg/dL Alkaline Phosphatase 31 L (38-126) U/L Total Protein 4.9 L (6.3-8.2) g/dL Albumin 2.3 L (3.5-5.0) g/dL Microbiology - Last 24 Hours (Table) 09/10/19 08:49 Blood Culture - Preliminary Blood No Growth after 72 hours 09/10/19 18:20 Urine Culture - Final Urine,Voided Enterococcus faecalis 09/10/19 08:58 Blood Culture Gram Stain - Final Blood Blood Culture - Final Coagulase Negative Staph Assessment and Plan Assessment: Diastolic congestive heart failure without it exacerbation, ejection fraction 50-55% -Currently euvolemic with BKA and Lasix on hold -Strict I's and O's, daily weights -Continue with metoprolol -start lisinopril at lower dose -Cardiology recommendations appreciated, no need for plavix last stent > 1 year ago. Possible Pneumonia/sinusitis with Acute hypoxic respiratory failure - unasyn, zithromax - sputum culture if able - 1/2 blood cultures + for staph epi likely contaminant - wean O2 as able - flonase - claritin Group D enterococcus UTI - transitioned from rocephin to ampicillin Bilateral leg pain -Likely component of neuropathy and peripheral arterial disease -Surgery recommendations appreciated: Outpatient angiogram -Pain control with Neurontin - eliquis and ASA Macrocytic anemia -Likely secondary to early B12 deficiency -Oncology recommendations appreciated: I am B12 injections, outpatient follow-up in 2 weeks after has been off alcohol -Follow CBC -Folic acid normal, appears consistent with chronic disease Bilateral lower extremity pain, likely due to peripheral vascular disease -Vascular surgery consulted--no intervention advised -Continue Eliquis and aspirin -Continue Statin -Pain control with Baird scheduled and Gabapentin -Follow-up PT and OT consultation Macrocytic anemia -B12 low normal, folate within normal limits. High methymalonic acid. -Likely vit B12 deficiency. -Started B12 supplementation. -Follow with hematology in 2 weeks after discharge. COSME due to hypotension and ATN, improved - Nephro recs appreciated - improving - continue to hold lasix and back lower dose lisinopril - avoid additional nephrotoxic agents - renal ultrasound without obstruction Debilty with generalized weakness - PT/OT - Fall precuations Acute urinary retention - Rooney d/c 09/11 monitor PVR ETOH abuse - was on CIWA, no loner requiring - Thiamiena Troponin elevation and hypotension - not refelctive of ACS no need to follow DVT prophylaxis: shon Discussed with: patient, nursing Anticipated discharge: 2-[address]: SNF A total of 35 minutes was spent on the care of this complex patient more than 50% of the time was spent in counseling and care coordination.
[2019-09-13] MEDS: LISINOPRIL 5 MG TAB PO SCH (15:33)
[2019-09-13] MEDS: ATORVASTATIN 20 MG TAB PO SCH (20:16)
[2019-09-14] MEDS: AMPICILLIN-SULBACTAM 3 GM in SODIUM CHLORIDE 0.9% 100 ML IVPB SCH ×4 (00:46→17:25)
[2019-09-14] MEDS: ASPIRIN 81 MG PO SCH (08:26)
[2019-09-14] MEDS: METOPROLOL SUCCINATE (ER) 25 MG TAB.ER.24H PO SCH (08:26)
[2019-09-14] MEDS: PANTOPRAZOLE 40 MG TABLET PO SCH (08:26)
[2019-09-14] MEDS: guaiFENesin-Coden 100-10MG/5ML 10 ML CUP PO PRN ×2 (08:26→21:34)
[2019-09-14] MEDS: LORATADINE 10 MG TAB PO SCH (08:26)
[2019-09-14] MEDS: MAGNESIUM OXIDE 400 MG TAB PO SCH ×2 (08:26→21:29)
[2019-09-14] MEDS: LISINOPRIL 5 MG TAB PO SCH (08:26)
[2019-09-14] MEDS: GABAPENTIN 300 MG CAP PO SCH ×2 (08:26→21:29)
[2019-09-14] MEDS: APIXABAN 5 MG TAB PO SCH ×2 (08:26→21:29)
[2019-09-14] MEDS: CYANOCOBALAMIN 500 MCG TAB PO SCH (08:26)
[2019-09-14] MEDS: THIAMINE 100 MG TAB PO SCH ×2 (08:26→17:25)
[2019-09-14] MEDS: AZITHROMYCIN 500 MG TAB PO SCH (08:26)
[2019-09-14] MEDS: FLUTICASONE 50MCG/SPRAY NASAL 16GM EA NOSTRIL SCH (08:27)
[2019-09-14] MEDS: CYANOCOBALAMIN 1,000 MCG/ML 1 ML VIAL IM SCH (08:32)
[2019-09-14 11:36] LABS: Calcium 8.5 mg/dL (8.4-10.2); Potassium 4.4 mmol/L (3.5-5.1)
--- NOTE | 2019-09-14 14:10 | P.PN ---
Subjective Progress Note Date: 09/14/19 Follow-up for COSME Objective - Vital Signs Vital signs: Vital Signs Temp 98 F 09/14/19 11:59 Pulse 76 09/14/19 11:59 Resp 17 09/14/19 11:59 BP 136/76 09/14/19 11:59 Pulse Ox 99 09/14/19 11:59 Intake & Output 09/13/19 09/14/19 09/14/19 18:59 06:59 18:59 Intake Total 100 Output Total 700 200 Balance -600 -200 Weight 77 kg Intake: Intake, IV Titration 100 Amount Ampicillin-Sulbactam 3 gm 100 In Sodium Chloride 0.9% 100 ml @ 200 mls/hr IVPB Q6HR [facility] Rx#:[id number] Output: Urine 700 200 Straight 350 Other: Voiding Method Urinal # Voids 0 0 # Bowel Movements 1 - Exam No acute distress S1-S2 heard Lungs clear No edema - Labs CBC & Chem 7: 09/13/19 05:21 09/14/19 10:36 Labs: Abnormal Lab Results - Last 24 Hours (Table) 09/14/19 Range/Units 10:36 Chloride 108 H (98-107) mmol/L Creatinine 1.34 H (0.66-1.25) mg/dL Glucose 101 H (74-99) mg/dL Microbiology - Last 24 Hours (Table) 09/10/19 08:49 Blood Culture - Preliminary Blood No Growth after 96 hours Assessment and Plan Assessment: #1 nonoliguric acute kidney injury secondary to ischemic ATN. Baseline creatinine unknown. #2 peripheral vascular disease. #3 chronic diastolic CHF #4 alcohol abuse #5 anemia Plan: #1 renal functions Stable. Back and lisinopril. 2 avoid nephrotoxic agents and hypotensive episodes
--- NOTE | 2019-09-14 14:44 | P.PN ---
Subjective Progress Note Date: 09/14/19 (kj charting seen at 0915) Principal diagnosis: leg pain Patient is a 68-year-old male with known coronary artery disease status post stenting, congestive heart failure, prior pulmonary embolism, and peripheral vascular disease who presented to the emergency department with complaints of long-standing hip and leg pain. In the ER he underwent an extensive evaluation. Chest x-ray showed mild perihilar density, ankle x-ray demonstrated mild soft tissue swelling of the left ankle, hips and pelvis showed moderate right hip and mild left hip osteoarthritis. CTA of the abdomen and pelvis with runoff showed complete occlusion of the bilateral superficial femoral arteries with collateral vascular, occlusion of the distal right peroneal artery just proximal to the ankle joint, extensive atherosclerosis of the abdominal aorta and 50% renal stenosis bilaterally, possible underlying inflammatory bowel disease with submucosal deposition of fat in the right hemico arlin and terminal ileum, and nonobstructing left renal calculus. He is admitted for bilateral lower extremity pain likely due to peripheral vascular disease. He is also found to have macrocytic anemia and a B12 and folate were ordered. He was seen by vascular surgery who recommended obtaining an ROBYN but no need for acute or emergent intervention as patient likely has neuropathy. In his lower extremity pain he underwent Echocardiogram which showed borderline LVH, ejection fraction 55-60%, grade 1 diastolic dysfunction. On 09/05 he developed some encephalopathy which was felt to be likely to alcohol withdrawal versus pain medication. He was started on thiamine and CIWA protocol. Chest x-ray on 09/05 showed bibasilar airspace disease. On 09/06 was felt that he likely had an exacerbation of his congestive heart failure and he was started on IV Lasix. He was also noted to have urinary retention a Rooney catheter was placed. His B12 and folic acid were normal. He was started on iron supplementation with B12 supplementation. SPEP and methylmalonic acid were ordered. He did develop some hypotension medications were adjusted. Nephrology was consulted as the patient had increasing creatinine. They recommended discontinuing his lisinopril and holding Lasix. Cardiology was consulted who agreed with acute on chronic diastolic congestive heart failure associated with acute kidney injury and elevated troponin secondary to renal dysfunction. They decreased his metoprolol and agreed with holding Lasix. Abdominal x-ray on 09/07 showed no free air or bowel obstruction with moderate stool burden and patchy bibasilar infiltrates. Repeat chest x-ray on 09/08 showed volume loss of the right base with mild patchy density right greater than left. Renal ultrasound 09/08-some chronic renal changes. On 09/09 was found to have pneumonia and was started on antibiotics and blood cultures were ordered. Hematology was consulted who recommended IM B12 supplementation and follow-up in office in 2 weeks. Morning of 09/12/2019 complained of worsening nasal congestion and rhinorrhea he was started on Flonase. Repeat CXR showed that right sided infiltrate had resolved and possible retorocardiac infiltrate. Urine culture came back with enterococcus and antibiotics were transitioned to Unasyn, and Augmentin was maintained for possible pneumonia. Patient seen and examined at bedside. He states that runny and stuffy nose are better, his breathing is better, eating well, doing overall better. Objective - Vital Signs Vital signs: Vital Signs Temp 98 F 09/14/19 11:59 Pulse 76 09/14/19 11:59 Resp 17 09/14/19 11:59 BP 136/76 09/14/19 11:59 Pulse Ox 99 09/14/19 11:59 Intake & Output 09/13/19 09/14/19 09/14/19 18:59 06:59 18:59 Intake Total 100 Output Total 700 200 Balance -600 -200 Weight 77 kg Intake: Intake, IV Titration 100 Amount Ampicillin-Sulbactam 3 gm 100 In Sodium Chloride 0.9% 100 ml @ 200 mls/hr IVPB Q6HR [facility] Rx#:[id number] Output: Urine 700 200 Straight 350 Other: Voiding Method Urinal # Voids 0 0 # Bowel Movements 1 - Exam General: non toxic, no distress, appears at stated age Derm: warm, dry Head: atraumatic, normocephalic, symmetric Eyes: EOMI, no lid lag, anicteric sclera Mouth: no lip lesion, mucus membranes moist Cardiovascular: S1S2 reg, no murmur, positive posterior tibial pulse bilateral, Lungs: CTA bilateral, no accessory muscle use Abdominal: soft, nontender to palpation, no guarding, no appreciable organomegaly Ext: no gross muscle atrophy, no edema, no contractures Neuro: CN II-XI grossly intact, no focal neuro deficits Psych: Alert, oriented, appropriate affect - Labs CBC & Chem 7: 09/13/19 05:21 09/14/19 10:36 Labs: Abnormal Lab Results - Last 24 Hours (Table) 09/14/19 Range/Units 10:36 Chloride 108 H (98-107) mmol/L Creatinine 1.34 H (0.66-1.25) mg/dL Glucose 101 H (74-99) mg/dL Microbiology - Last 24 Hours (Table) 09/10/19 08:49 Blood Culture - Preliminary Blood No Growth after 96 hours Assessment and Plan Assessment: Diastolic congestive heart failure without it exacerbation, ejection fraction 50-55% -Currently euvolemicand Lasix on hold -Strict I's and O's, daily weights -Continue with metoprolol -Lisinopril -Cardiology recommendations appreciated, no need for plavix last stent > 1 year ago. Possible Pneumonia/sinusitis with Acute hypoxic respiratory failure - unasyn, zithromax completed 09/13 - sputum culture if able - 1/2 blood cultures + for staph epi likely contaminant - wean O2 as able - flonase - claritin Group D enterococcus UTI - unasyn for a total of 7 days Bilateral leg pain -Likely component of neuropathy and peripheral arterial disease -Surgery recommendations appreciated: Outpatient angiogram -Pain control with Neurontin/ norco - eliquis and ASA - statin - PT/OT Macrocytic anemia -Likely secondary to early B12 deficiency -Oncology recommendations appreciated: IM B12 injections, outpatient follow-up in 2 weeks after has been off alcohol -Follow CBC -Folic acid normal, appears consistent with chronic disease COSME due to hypotension and ATN, improved - Nephro recs appreciated - improving - continue to hold lasix and back lower dose lisinopril - avoid additional nephrotoxic agents - renal ultrasound without obstruction Debilty with generalized weakness - PT/OT - Fall precuations Acute urinary retention - Rooney d/c 09/11 monitor PVR- patient not willing to participated, had to be straight cathed X 2 ETOH abuse - was on CIWA, no loner requiring - Thiamiena Troponin elevation and hypotension - not refelctive of ACS no need to follow DVT prophylaxis: shon Discussed with: patient, nursing Anticipated discharge: in AM Anticipated discharge place: SNF A total of 35 minutes was spent on the care of this complex patient more than 50% of the time was spent in counseling and care coordination.
[2019-09-14] MEDS ORDERED: MONTELUKAST 10 MG TAB PO SCH (21:00)
[2019-09-14 21:11] VITALS: RESP 18
[2019-09-14] MEDS: ATORVASTATIN 20 MG TAB PO SCH (21:29)
[2019-09-15] MEDS: AMPICILLIN-SULBACTAM 3 GM in SODIUM CHLORIDE 0.9% 100 ML IVPB SCH ×3 (00:18→11:51)
[2019-09-15 04:42] VITALS: BP 154/67; PULSE 78; TEMP 97.5
[2019-09-15 06:52] LABS: Anisocytosis Slight; HCT 24.8 % (39.0-53.0); HGB 7.7 gm/dL (13.0-17.5); Hypochromasia Moderate; MCHC 31.1 g/dL (31.0-37.0); MCV 119.2 fL (80.0-100.0); Macrocytosis Marked; Mean Platelet Volume 7.9; Platelet Count 427 k/uL (150-450); RBC 2.08 m/uL (4.30-5.90); RDW 16.3 % (11.5-15.5); WBC 5.8 k/uL (3.8-10.6)
[2019-09-15 07:20] LABS: Calcium 8.3 mg/dL (8.4-10.2); Potassium 4.4 mmol/L (3.5-5.1)
[2019-09-15] MEDS: GABAPENTIN 300 MG CAP PO SCH (08:00)
[2019-09-15] MEDS: CYANOCOBALAMIN 1,000 MCG/ML 1 ML VIAL IM SCH (08:00)
[2019-09-15] MEDS: THIAMINE 100 MG TAB PO SCH (08:00)
[2019-09-15] MEDS: APIXABAN 5 MG TAB PO SCH (08:00)
[2019-09-15] MEDS: ASPIRIN 81 MG PO SCH (08:00)
[2019-09-15] MEDS: METOPROLOL SUCCINATE (ER) 25 MG TAB.ER.24H PO SCH (08:00)
[2019-09-15] MEDS: LISINOPRIL 5 MG TAB PO SCH (08:00)
[2019-09-15] MEDS: MAGNESIUM OXIDE 400 MG TAB PO SCH (08:00)
[2019-09-15] MEDS: FLUTICASONE 50MCG/SPRAY NASAL 16GM EA NOSTRIL SCH (08:00)
[2019-09-15] MEDS: CYANOCOBALAMIN 500 MCG TAB PO SCH (08:00)
[2019-09-15] MEDS: LORATADINE 10 MG TAB PO SCH (08:00)
[2019-09-15] MEDS: PANTOPRAZOLE 40 MG TABLET PO SCH (08:00)
[2019-09-15] MEDS ORDERED: FUROSEMIDE 20 MG TAB PO SCH (09:15)
[2019-09-15] MEDS: guaiFENesin-Coden 100-10MG/5ML 10 ML CUP PO PRN (10:17)
--- NOTE | 2019-09-15 11:09 | P.PN ---
Subjective Progress Note Date: 09/15/19 Principal diagnosis: macrocytic anemia in follow-up today patient has no complaints, denies any bleeding, he does have easy bruising. Objective - Vital Signs Vital signs: Vital Signs Temp 97.5 F L 09/15/19 04:41 Pulse 78 09/15/19 04:41 Resp 18 09/15/19 04:41 BP 154/67 09/15/19 04:41 Pulse Ox 98 09/15/19 04:41 Intake & Output 09/14/19 09/15/19 09/15/19 18:59 06:59 18:59 Intake Total 200 Output Total 500 300 Balance -500 -100 Weight 92 kg Intake: Intake, IV Titration 200 Amount Ampicillin-Sulbactam 3 gm 200 In Sodium Chloride 0.9% 100 ml @ 200 mls/hr IVPB Q6HR [facility] Rx#:[id number] Output: Urine 500 300 Other: Voiding Method Urinal Urinal # Bowel Movements 1 - Constitutional General appearance: Present: cooperative, no acute distress, obese - EENT Eyes: Present: anicteric sclerae, EOMI, poor dentition ENT: Present: normal oropharynx - Respiratory Respiratory: bilateral: diminished (posterior), rales (anterior) - Cardiovascular Heart sounds: normal: S1, S2 Abnormal Heart Sounds: Absent: systolic murmur, diastolic murmur, rub, S3 Gallop, S4 Gallop, click, other - Gastrointestinal General gastrointestinal: Present: hyperactive bowel sounds, soft. Absent: absent bowel sounds, decreased bowel sounds, distended, hepatomegaly, normal bowel sounds, organomegaly, rigid, scaphoid, splenomegaly, tenderness, umbilical hernia, ventral hernia - Integumentary Integumentary: Present: pale - Neurologic Neurologic: Present: CNII-XII intact - Musculoskeletal Musculoskeletal: Present: strength equal bilaterally - Psychiatric Psychiatric: Present: A&O x's 3, appropriate affect, intact judgment & insight - Labs CBC & Chem 7: 09/15/19 06:17 09/15/19 06:17 Labs: Abnormal Lab Results - Last 24 Hours (Table) 09/14/19 09/15/19 09/15/19 Range/Units 10:36 06:17 06:17 RBC 2.08 L (4.30-5.90) m/uL Hgb 7.7 L (13.0-17.5) gm/dL Hct 24.8 L (39.0-53.0) % MCV 119.2 H (80.0-100.0) fL MCH 37.0 H (25.0-35.0) pg RDW 16.3 H (11.5-15.5) % Macrocytosis Marked A Chloride 108 H 109 H (98-107) mmol/L Creatinine 1.34 H (0.66-1.25) mg/dL Glucose 101 H (74-99) mg/dL Calcium 8.3 L (8.4-10.2) mg/dL Microbiology - Last 24 Hours (Table) 09/10/19 08:58 Blood Culture Gram Stain - Final Blood Blood Culture - Final Coagulase Negative Staph 09/10/19 08:49 Blood Culture - Preliminary Blood No Growth after 96 hours Assessment and Plan (1) Macrocytic anemia with vitamin B12 deficiency Narrative/Plan: Hemoglobin stable, no transfusion today, no evidence to suggest acute bleeding. B12 deficient, other anemia/deficiency workup pending. Discussed with patient. Will have him start oral B12. Patient does not feel he is going to be able to come to for follow-up. Will attempt to contact PCP and see if patient can receive parenteral B12 adn CBC monitoring close to home. He verbalized understanding the plan. Current Visit: Yes Status: Chronic Priority: High Code(s): D51.9 - VITAMIN B12 DEFICIENCY ANEMIA, UNSPECIFIED SNOMED Code(s): 33756795
--- NOTE | 2019-09-15 13:15 | P.DS ---
Providers Date of admission: 09/04/19 19:56 Expected date of discharge: 09/15/19 Attending physician: Jason Elaine MD Consults: 09/04/19 19:53 Consult Physician Urgent Consulting Provider: Nishi Rooney Consult Reason/Comments: Arterial occlusion lower extremities Do you want consulting provider notified?: Yes 09/08/19 12:40 Consult Physician Stat Consulting Provider: Elvis Downs Consult Reason/Comments: Trop elevation, hypotension Do you want consulting provider notified?: Yes 09/09/19 08:50 Consult Physician Routine Consulting Provider: Yang March Consult Reason/Comments: anemia Do you want consulting provider notified?: Yes 09/09/19 08:56 Consult Physician Routine Consulting Provider: Robyn Cedillo Consult Reason/Comments: cosme Do you want consulting provider notified?: Yes 09/09/19 16:24 Consult Physician Routine Consulting Provider: Dimitris Rodriguez Consult Reason/Comments: anemia Do you want consulting provider notified?: Yes Primary care physician: [place] Hospital Course: Discharge Diagnosis: Diastolic congestive heart failure without it exacerbation, ejection fraction 50-55% Possible Pneumonia/sinusitis with Acute hypoxic respiratory failure Group D enterococcus UTI Bilateral leg pain Macrocytic anemia, B 12 deficiency COSME due to hypotension and ATN, improved Debilty with generalized weakness Acute urinary retention, resolved ETOH abuse Troponin elevation and hypotension, not refelctive of ACS Hospital Course: Patient is a 68-year-old male with known coronary artery disease status post stenting, congestive heart failure, prior pulmonary embolism, and peripheral vascular disease who presented to the emergency department with complaints of long-standing hip and leg pain. In the ER he underwent an extensive evaluation. Chest x-ray showed mild perihilar density, ankle x-ray demonstrated mild soft tissue swelling of the left ankle, hips and pelvis showed moderate right hip and mild left hip osteoarthritis. CTA of the abdomen and pelvis with runoff showed complete occlusion of the bilateral superficial femoral arteries with collateral vascular, occlusion of the distal right peroneal artery just proximal to the ankle joint, extensive atherosclerosis of the abdominal aorta and 50% renal stenosis bilaterally, possible underlying inflammatory bowel disease with submucosal deposition of fat in the right hemicolon and terminal ileum, and nonobstructing left renal calculus. He is admitted for bilateral lower extremity pain likely due to peripheral vascular disease. He is also found to have macrocytic anemia and a B12 and folate were ordered. He was seen by vascular surgery who recommended obtaining an ROBYN but no need for acute or emergent intervention as patient likely has neuropathy. In his lower extremity pain he underwent Echocardiogram which showed borderline LVH, ejection fraction 55-60%, grade 1 diastolic dysfunction. On 09/05 he developed some encephalopathy which was felt to be likely to alcohol withdrawal versus pain medication. He was started on thiamine and CIWA protocol. Chest x- ray on 09/05 showed bibasilar airspace disease. On 09/06 was felt that he likely had an exacerbation of his congestive heart failure and he was started on IV Lasix. He was also noted to have urinary retention a Rooney catheter was placed. His B12 and folic acid were normal. He was started on iron supplementation with B12 supplementation. SPEP and methylmalonic acid were ordered and oncology was consulted. He did develop some hypotension medications were adjusted. Nephrology was consulted as the patient had increasing creatinine. They recommended discontinuing his lisinopril and holding Lasix. Cardiology was consulted who agreed with acute on chronic diastolic congestive heart failure associated with acute kidney injury and elevated troponin secondary to renal dysfunction. They decreased his metoprolol and agreed with holding Lasix. Abdominal x-ray on 09/07 showed no free air or bowel obstruction with moderate stool burden and patchy bibasilar infiltrates. Repeat chest x-ray on 09/08 showed volume loss of the right base with mild patchy density right greater than left. Renal ultrasound 09/08-some chronic renal changes. On 09/09 was found to have possible pneumonia and was started on antibiotics and blood cultures were ordered. Hematology was consulted who recommended IM B12 supplementation and follow-up in office in 2 weeks. Morning of 09/12/2019 complained of worsening nasal congestion and rhinorrhea he was started on Flonase and bhis singulair was resumed with good results. Repeat CXR showed that right sided infiltrate had resolved and possible retorocardiac infiltrate. Urine culture came back with enterococcus and antibiotics were transitioned to Unasyn, and zithromax was maintained for possible pneumonia. By the morning of 09/14 he had a great improvement. He was determined stable for discharge to rehab. He finished his course of Zithromax. His Unasyn was transitioned to Augmentin to complete an additional 3 days of treatment. Patient seen and examined at bedside. No chest pain, Still with some runny/ stuffy nose but no shortness of breath, no nausea, no vomiting. Vital signs reviewed and stable. General: non toxic, no distress, appears at stated age Derm: warm, dry Head: atraumatic, normocephalic, symmetric Eyes: EOMI, no lid lag, anicteric sclera Mouth: no lip lesion, mucus membranes moist Cardiovascular: S1S2 reg, no murmur, positive posterior tibial pulse bilateral, Lungs: Ronchi bilateral that clears with cough , no accessory muscle use Abdominal: soft, nontender to palpation, no guarding, no appreciable organomegaly Ext: no gross muscle atrophy, no edema, no contractures Neuro: CN II-XI grossly intact, no focal neuro deficits Psych: Alert, oriented, appropriate affect A total of 35 minutes of time were spent preparing this complex discharge summary Assessment: . Patient Condition at Discharge: Stable Plan - Discharge Summary New Discharge Prescriptions: New Cyanocobalamin [Vitamin B-12] 1,000 mcg PO DAILY #90 tablet Amoxic-Pot Clav 875-125Mg [Augmentin 875-125] 1 tab PO Q12HR 3 Days #6 tab Fluticasone Nasal Victoria [Flonase Nasal [place]] 2 spray EA NOSTRIL DAILY spr Furosemide [Lasix] 20 mg PO DAILY tab Magnesium Oxide [Mag-Ox] 400 mg PO BID tab HYDROcodone/APAP 10-325MG [Danube 10-325] 1 each PO Q6H PRN #24 tab PRN Reason: Mild To Moderate Pain guaiFENesin-Coden 100-10MG/5ML [Robitussin AC] 10 ml PO Q6H PRN ml PRN Reason: Cough Thiamine [Vitamin B-1] 100 mg PO BID-W/MEALS tab Lisinopril [Zestril] 5 mg PO DAILY tab Continue Aspirin EC [Ecotrin Low Dose] 81 mg PO DAILY Simvastatin 40 mg PO HS Omeprazole [PriLOSEC] 40 mg PO BID Metoprolol Succinate (ER) [Toprol XL] 1 tab PO DAILY Loratadine 10 mg PO DAILY Apixaban [Eliquis] 5 mg PO BID Montelukast [Singulair] 10 mg PO HS Gabapentin [Neurontin] 300 mg PO TID #21 cap Discontinued Lisinopril 20 mg PO DAILY amLODIPine [Norvasc] 10 mg PO DAILY Furosemide [Lasix] 40 mg PO DAILY traMADol HCL [Ultram] 1 tab PO QID PRN PRN Reason: Pain Clopidogrel [Plavix] 75 mg PO DAILY Discharge Medication List Aspirin EC [Ecotrin Low Dose] 81 mg PO DAILY 09/04/19 [History] Apixaban [Eliquis] 5 mg PO BID 09/05/19 [History] Loratadine 10 mg PO DAILY 09/05/19 [History] Metoprolol Succinate (ER) [Toprol XL] 1 tab PO DAILY 09/05/19 [History] Montelukast [Singulair] 10 mg PO HS 09/05/19 [History] Omeprazole [PriLOSEC] 40 mg PO BID 09/05/19 [History] Simvastatin 40 mg PO HS 09/05/19 [History] Amoxic-Pot Clav 875-125Mg [Augmentin 875-125] 1 tab PO Q12HR 3 Days #6 tab 09/15/19 [Rx] Cyanocobalamin [Vitamin B-12] 1,000 mcg PO DAILY #90 tablet 09/15/19 [Rx] Fluticasone Nasal [place] [Flonase Nasal [place]] 2 spray EA NOSTRIL DAILY spr 09/15/19 [Rx] Furosemide [Lasix] 20 mg PO DAILY tab 09/15/19 [Rx] Gabapentin [Neurontin] 300 mg PO TID #21 cap 09/15/19 [Rx] HYDROcodone/APAP 10-325MG [Danube 10-325] 1 each PO Q6H PRN #24 tab 09/15/19 [Rx] Lisinopril [Zestril] 5 mg PO DAILY tab 09/15/19 [Rx] Magnesium Oxide [Mag-Ox] 400 mg PO BID tab 09/15/19 [Rx] Thiamine [Vitamin B-1] 100 mg PO BID-W/MEALS tab 09/15/19 [Rx] guaiFENesin-Coden 100-10MG/5ML [Robitussin AC] 10 ml PO Q6H PRN ml 09/15/19 [Rx] Follow up Appointment(s)/Referral(s): Nishi Rooney DO [STAFF PHYSICIAN] - 2 Weeks Nonstaff,Physician [REFERRING] - 1-2 days Yang March MD [STAFF PHYSICIAN] - 1 Week Activity/Diet/Wound Care/Special Instructions: Activity: as tolerated Diet: carb consistent Special Instructions: repeat BMP in 3-5 days DX: COSME Discharge Disposition: TRANSFER TO SNF/ECF
--- NOTE | 2019-09-17 08:10 | CDI ---
Documentation Clarification Form Date: 09/17/2019 07:54:28 AM From: Bree Novak Phone: To: Bree Novak If you have a question about this query, please contact Estela Sanders Reservations Clerk at [phone] between 8am and 5pm. Admit Date: 09/04/2019 07:56:00 PM Patient Name: Kraig Dumont Visit Number: [id number] Discharge Date: 09/15/2019 04:17:00 PM ATTENTION: The Clinical Documentation Specialists (CDI) and [facility] Coding Staff appreciate your assistance in clarifying documentation. Please respond to the clarification below the line at the bottom and electronically sign. The CDI & [facility] Coding staff will review the response and follow-up if needed. Please note: Queries are made part of the Legal Health Record. If you have any questions, please contact the author of this message via ITS. Dr. Mile Arteaga Conflicting documentation has been found in the medical record Cardiology documents A/C diastolic CHF and DCS documents Diastolic CHF with no exacerbation. History/Risk Factors: Patient with SOB elevated troponins HTN, CAD Alcohol dependent, old M, hypoxic respiratory failure, ATN, CKD III Clinical Indicators: BNP 1470 Treatment: Lasix In your opinion, what is the most clinically appropriate diagnosis for this patient? Acute and chronic diastolic CHF Chronic diastolic CHF Other explanation of clinical findings Unable to determine (no explanation for clinical findings) Acute and chronic diastolic CHF MTDD
--- NOTE | 2019-09-17 12:42 | P.ARTDOP ---
Arterial Doppler LOWER EXTREMITY ARTERIAL DOPPLER: DATE OF SERVICE: 09/05/2019 Reason for study: Bilateral leg pain, chronic. Doppler waveforms: Atypical bilaterally throughout.. Pulse volume recording: Somewhat blunted more on the right than the left. Digital waveforms are monophasic to blunted. Pressure gradients: At the thigh level bilaterally . Ankle-brachial indices: 0.49 on the right and 0.52 on the left. Toe brachial indices: [] on the right, [] on the left Impression: Moderate bilateral iliofemoral disease. Clinical correlation recommended..
== END 2019-09-15 16:17 | DRG 291 ==
LOC: EC 14:10 → SUPCPDRO 14:10 → 3SCARD 19:56 → 5NMEDONC 09-07 16:27
PROVIDERS: ADMIT Internal Medicine; ATTEND Internal Medicine
DX: I13.0 Hypertensive heart and chronic kidney disease with heart failure and stage 1 through stage 4 chronic kidney disease, or unspecified chronic kidney disease (principal); J18.9 Pneumonia, unspecified organism; I50.33 Acute on chronic diastolic (congestive) heart failure; G92 Toxic encephalopathy; N17.0 Acute kidney failure with tubular necrosis; J96.01 Acute respiratory failure with hypoxia; F10.239 Alcohol dependence with withdrawal, unspecified; N39.0 Urinary tract infection, site not specified; Z20.828 Contact with and (suspected) exposure to other viral communicable diseases; B95.2 Enterococcus as the cause of diseases classified elsewhere; D51.9 Vitamin B12 deficiency anemia, unspecified; D53.9 Nutritional anemia, unspecified; D63.8 Anemia in other chronic diseases classified elsewhere; E78.5 Hyperlipidemia, unspecified; E83.42 Hypomagnesemia; E87.6 Hypokalemia; F17.210 Nicotine dependence, cigarettes, uncomplicated; G62.9 Polyneuropathy, unspecified; I77.9 Disorder of arteries and arterioles, unspecified; I25.10 Atherosclerotic heart disease of native coronary artery without angina pectoris; I25.2 Old myocardial infarction; I35.1 Nonrheumatic aortic (valve) insufficiency; I70.0 Atherosclerosis of aorta; I73.9 Peripheral vascular disease, unspecified; I95.2 Hypotension due to drugs; K76.9 Liver disease, unspecified; M16.12 Unilateral primary osteoarthritis, left hip; N18.3 Chronic kidney disease, stage 3 (moderate); N20.0 Calculus of kidney; T46.4X5A Adverse effect of angiotensin-converting-enzyme inhibitors, initial encounter; T50.2X5A Adverse effect of carbonic-anhydrase inhibitors, benzothiadiazides and other diuretics, initial encounter; I25.82 Chronic total occlusion of coronary artery; J32.9 Chronic sinusitis, unspecified; R79.89 Other specified abnormal findings of blood chemistry; R53.81 Other malaise; G89.29 Other chronic pain; R33.9 Retention of urine, unspecified; Z91.128 Patient's intentional underdosing of medication regimen for other reason; Z79.01 Long term (current) use of anticoagulants; Z79.02 Long term (current) use of antithrombotics/antiplatelets; Z79.82 Long term (current) use of aspirin; Z79.899 Other long term (current) drug therapy; Z86.711 Personal history of pulmonary embolism; Z86.718 Personal history of other venous thrombosis and embolism; Z91.19 Patient's noncompliance with other medical treatment and regimen; Z95.1 Presence of aortocoronary bypass graft; Z95.5 Presence of coronary angioplasty implant and graft; Z60.2 Problems related to living alone
CPT/HCPCS: 36415; 71045; 73521; 74019; 76770; 80048; 80053; 81001; 82607; 82728; 82746; 82784; 83010; 83540; 83550; 83615; 83735; 83880; 83883; 83921; 84132; 84165; 84443; 84484; 85025; 85027; 85045; 85610; 85730; 86038; 86334; 86431; 87040; 87077; 87086; 87186; 87635; 93005; 93306; 93923; 96365; 96366; 96375; 96376; 99291

== ENCOUNTER 2020-01-06 21:32 | Inpatient (IN) | payer MEDICARE ==
[2020-01-06 21:42] LABS: Glucose,Whole Blood 90 mg/dL (75-99)
[2020-01-06] MEDS ORDERED: SODIUM CHLORIDE 0.9% 1,000 ML IV STA ×3 (21:43→22:23)
[2020-01-06] MEDS ORDERED: SODIUM CHLORIDE 0.9% 500 ML 500 ML IV STA (21:43)
--- NOTE | 2020-01-06 21:45 | ED ---
Fall HPI - General Chief Complaint: Fall Stated Complaint: falls,head injury Time Seen by Provider: 01/06/20 21:37 Source: patient, EMS, RN notes reviewed, old records reviewed Mode of arrival: EMS Limitations: altered mental status - History of Present Illness Initial Comments: This is a 69-year-old male DF for evaluation presents today for evaluation regards to multiple recent falls. Unresponsiveness weakness and unable to get up. Patient is a mildly poor story at this time. EMS provides history blood pressures initially model moderately low lower improved on arrival. 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, recurrent falls Fall Witnessed: no Place Fall Occurred: home Loss of Consciousness: none Prolonged Down Time?: unclear Symptoms Prior to Fall: none Location: head Severity: mild Severity scale (1-10): 3 Quality: dull Context: tripped/slipped, history of frequent falls, other (weakness) Associated Symptoms: denies - Related Data Home Medications Medication Instructions Recorded Confirmed Aspirin EC [Ecotrin Low Dose] 81 mg PO DAILY 09/04/19 01/07/20 Apixaban [Eliquis] 5 mg PO BID 09/05/19 01/07/20 Loratadine 10 mg PO DAILY 09/05/19 01/07/20 Metoprolol Succinate (ER) [Toprol 1 tab PO DAILY 09/05/19 01/07/20 XL] Montelukast [Singulair] 10 mg PO HS 09/05/19 01/07/20 Simvastatin 40 mg PO HS 09/05/19 01/07/20 Cyanocobalamin (Vitamin B-12) 1,000 mcg PO DAILY 01/07/20 01/07/20 [Vitamin B-12] Furosemide [Lasix] 40 mg PO BID@0900,1300 01/07/20 01/07/20 Gabapentin [Neurontin] 300 mg PO TID PRN 01/07/20 01/07/20 HYDROcodone/APAP 10-325MG [Tuttle 1 tab PO Q6H PRN 01/07/20 01/07/20 10-325] Omeprazole 20 mg PO DAILY 01/07/20 01/07/20 Potassium Chloride ER [K-Dur 20] 20 meq PO DAILY 01/07/20 01/07/20 Thiamine [Vitamin B-1] 100 mg PO BID 01/07/20 01/07/20 metOLazone [Zaroxolyn] 5 mg PO DAILY@0830 01/07/20 01/07/20 Previous Rx's Medication Instructions Recorded Fluticasone Nasal [place] [Flonase 2 spray EA NOSTRIL DAILY spr 09/15/19 Nasal [place]] lisinopriL [Zestril] 5 mg PO DAILY tab 09/15/19 Allergies Allergy/AdvReac Type Severity Reaction Status Date / Time No Known Allergies Allergy Verified 09/05/19 14:22 Review of Systems ROS Statement: Those systems with pertinent positive or pertinent negative responses have been documented in the HPI. ROS Other: All systems not noted in ROS Statement are negative. Past Medical History Past Medical History: Heart Failure, Hypertension, Myocardial Infarction (MD), Pulmonary Embolus (PE) Last Myocardial Infarction Date:: UNSURE History of Any Multi-Drug Resistant Organisms: None Reported Past Surgical History: Coronary Bypass/CABG, Heart Catheterization With Stent Date of Last Stent Placement:: UNSURE Past Psychological History: No Psychological Hx Reported Smoking Status: Current every day smoker Past Alcohol Use History: Daily Past Drug Use History: None Reported - Past Family History Mother History Unknown: Yes General Exam Limitations: no limitations General appearance: alert, in no apparent distress, anxious, lethargic Head exam: Present: atraumatic, normocephalic, normal inspection Eye exam: Present: normal appearance, PERRL, EOMI. Absent: scleral icterus, conjunctival injection, periorbital swelling ENT exam: Present: normal exam, mucous membranes dry Neck exam: Present: normal inspection. Absent: tenderness, meningismus, lymphadenopathy Respiratory exam: Present: normal lung sounds bilaterally. Absent: respiratory distress, wheezes, rales, rhonchi, stridor Cardiovascular Exam: Present: regular rate, normal rhythm, normal heart sounds. Absent: systolic murmur, diastolic murmur, rubs, gallop, clicks GI/Abdominal exam: Present: soft, normal bowel sounds. Absent: distended, tenderness, guarding, rebound, rigid Extremities exam: Present: normal inspection, full ROM, normal capillary refill. Absent: tenderness, pedal edema, joint swelling, calf tenderness Back exam: Present: normal inspection Neurological exam: Present: alert, oriented X3, CN II-XII intact Psychiatric exam: Present: normal affect, normal mood Skin exam: Present: warm, dry, intact, normal color. Absent: rash Course Vital Signs 01/06/20 01/06/20 01/06/20 21:34 22:00 22:12 Temperature 97.6 F Pulse Rate 93 85 Respiratory 18 22 20 Rate Blood Pressure 128/67 124/66 O2 Sat by Pulse 99 100 Oximetry 01/06/20 01/06/20 01/06/20 22:15 22:30 22:45 Temperature Pulse Rate 81 81 78 Respiratory 18 20 18 Rate Blood Pressure 120/67 124/62 106/66 O2 Sat by Pulse 100 99 99 Oximetry 01/06/20 01/06/20 23:00 23:08 Temperature 98.5 F 97.7 F Pulse Rate 84 78 Respiratory 18 18 Rate Blood Pressure 106/66 130/80 O2 Sat by Pulse 100 98 Oximetry - Reevaluation(s) Reevaluation #1: 01/06/20 22:31 medical record is reviewed Reevaluation #2: 01/06/20 22:31 patient is severely weak but improving symptoms with hydration - Consultations Consultation #1: Spoke with ICU, Dr. Chito mancini to placement Medical Decision Making - Medical Decision Making 69 male DF for evaluation patient to the ER for altered mental status signific ant dehydration, patient acting appropriately no neurological findings here in the ER improving with hydration computed tomography scan brain negative. Chest x-ray pelvis x-ray negative lab values markedly we will admit ICU for lactic acidosis - Lab Data Result diagrams: 01/07/20 04:28 01/07/20 04:28 Lab Results 01/06/20 01/06/20 01/06/20 Range/Units 21:41 21:41 21:49 WBC 5.0 (3.8-10.6) k/uL RBC 2.32 L (4.30-5.90) m/uL Hgb 9.2 L (13.0-17.5) gm/dL Hct 27.1 L (39.0-53.0) % MCV 116.9 H (80.0-100.0) fL MCH 39.9 H (25.0-35.0) pg MCHC 34.1 (31.0-37.0) g/dL RDW 17.4 H (11.5-15.5) % Plt Count 127 L (150-450) k/uL Neutrophils % 59 % Lymphocytes % 32 % Monocytes % 4 % Eosinophils % 2 % Basophils % 1 % Neutrophils # 3.0 (1.3-7.7) k/uL Lymphocytes # 1.6 (1.0-4.8) k/uL Monocytes # 0.2 (0-1.0) k/uL Eosinophils # 0.1 (0-0.7) k/uL Basophils # 0.0 (0-0.2) k/uL Manual Slide Review Performed Polychromasia Present Hypochromasia (manual) Present Anisocytosis Slight Macrocytosis Marked A PT (9.0-12.0) sec INR (<1.2) APTT (22.0-30.0) sec VBG pH 7.34 (7.31-7.41) VBG pCO2 31 L (37-51) mmHg VBG HCO3 17 L (24-28) mmol/L Sodium (137-145) mmol/L Potassium (3.5-5.1) mmol/L Chloride (98-107) mmol/L Carbon Dioxide (22-30) mmol/L Anion Gap mmol/L BUN (9-20) mg/dL Creatinine (0.66-1.25) mg/dL Est GFR (CKD-EPI)AfAm (>60 ml/min/1.73 sqM) Est GFR (CKD-EPI)NonAf (>60 ml/min/1.73 sqM) Glucose (74-99) mg/dL POC Glucose (mg/dL) 90 (75-99) mg/dL POC Glu Special Education Paraprofessional ID LamonteJessika nick Lactic Ac Sepsis Rflx Plasma Lactic Acid John (0.7-2.0) mmol/L Calcium (8.4-10.2) mg/dL Phosphorus (2.5-4.5) mg/dL Magnesium (1.6-2.3) mg/dL Total Bilirubin (0.2-1.3) mg/dL AST (17-59) U/L ALT (4-49) U/L Alkaline Phosphatase (38-126) U/L Ammonia (<30) umol/L Creatine Kinase (55-170) U/L CK-MB (CK-2) (0.0-2.4) ng/mL Troponin I (0.000-0.034) ng/mL NT-Pro-B Natriuret Pep pg/mL Total Protein (6.3-8.2) g/dL Albumin (3.5-5.0) g/dL Salicylates mg/dL Acetaminophen ug/mL Serum Alcohol mg/dL 01/06/20 01/06/20 01/06/20 Range/Units 21:49 21:49 21:49 WBC (3.8-10.6) k/uL RBC (4.30-5.90) m/uL Hgb (13.0-17.5) gm/dL Hct (39.0-53.0) % MCV (80.0-100.0) fL MCH (25.0-35.0) pg MCHC (31.0-37.0) g/dL RDW (11.5-15.5) % Plt Count (150-450) k/uL Neutrophils % % Lymphocytes % % Monocytes % % Eosinophils % % Basophils % % Neutrophils # (1.3-7.7) k/uL Lymphocytes # (1.0-4.8) k/uL Monocytes # (0-1.0) k/uL Eosinophils # (0-0.7) k/uL Basophils # (0-0.2) k/uL Manual Slide Review Polychromasia Hypochromasia (manual) Anisocytosis Macrocytosis PT (9.0-12.0) sec INR (<1.2) APTT (22.0-30.0) sec VBG pH (7.31-7.41) VBG pCO2 (37-51) mmHg VBG HCO3 (24-28) mmol/L Sodium 136 L (137-145) mmol/L Potassium 3.5 (3.5-5.1) mmol/L Chloride 109 H (98-107) mmol/L Carbon Dioxide 15 L (22-30) mmol/L Anion Gap 12 mmol/L BUN 22 H (9-20) mg/dL Creatinine 2.83 H (0.66-1.25) mg/dL Est GFR (CKD-EPI)AfAm 25 (>60 ml/min/1.73 sqM) Est GFR (CKD-EPI)NonAf 22 (>60 ml/min/1.73 sqM) Glucose 93 (74-99) mg/dL POC Glucose (mg/dL) (75-99) mg/dL POC Glu Special Education Paraprofessional ID Lactic Ac Sepsis Rflx Plasma Lactic Acid John 7.2 H* (0.7-2.0) mmol/L Calcium 8.6 (8.4-10.2) mg/dL Phosphorus 3.1 (2.5-4.5) mg/dL Magnesium 1.5 L (1.6-2.3) mg/dL Total Bilirubin 0.7 (0.2-1.3) mg/dL AST 34 (17-59) U/L ALT 11 (4-49) U/L Alkaline Phosphatase 26 L (38-126) U/L Ammonia <9 (<30) umol/L Creatine Kinase 244 H (55-170) U/L CK-MB (CK-2) 6.1 H (0.0-2.4) ng/mL Troponin I 0.105 H* (0.000-0.034) ng/mL NT-Pro-B Natriuret Pep pg/mL Total Protein 5.2 L (6.3-8.2) g/dL Albumin 2.8 L (3.5-5.0) g/dL Salicylates <1.0 mg/dL Acetaminophen <10.0 ug/mL Serum Alcohol 35 mg/dL 01/06/20 01/06/20 01/06/20 Range/Units 21:49 21:54 22:17 WBC (3.8-10.6) k/uL RBC (4.30-5.90) m/uL Hgb (13.0-17.5) gm/dL Hct (39.0-53.0) % MCV (80.0-100.0) fL MCH (25.0-35.0) pg MCHC (31.0-37.0) g/dL RDW (11.5-15.5) % Plt Count (150-450) k/uL Neutrophils % % Lymphocytes % % Monocytes % % Eosinophils % % Basophils % % Neutrophils # (1.3-7.7) k/uL Lymphocytes # (1.0-4.8) k/uL Monocytes # (0-1.0) k/uL Eosinophils # (0-0.7) k/uL Basophils # (0-0.2) k/uL Manual Slide Review Polychromasia Hypochromasia (manual) Anisocytosis Macrocytosis PT 9.7 (9.0-12.0) sec INR 0.9 (<1.2) APTT 24.7 (22.0-30.0) sec VBG pH (7.31-7.41) VBG pCO2 (37-51) mmHg VBG HCO3 (24-28) mmol/L Sodium (137-145) mmol/L Potassium (3.5-5.1) mmol/L Chloride (98-107) mmol/L Carbon Dioxide (22-30) mmol/L Anion Gap mmol/L BUN (9-20) mg/dL Creatinine (0.66-1.25) mg/dL Est GFR (CKD-EPI)AfAm (>60 ml/min/1.73 sqM) Est GFR (CKD-EPI)NonAf (>60 ml/min/1.73 sqM) Glucose (74-99) mg/dL POC Glucose (mg/dL) (75-99) mg/dL POC Glu Special Education Paraprofessional ID Lactic Ac Sepsis Rflx Y Plasma Lactic Acid John (0.7-2.0) mmol/L Calcium (8.4-10.2) mg/dL Phosphorus (2.5-4.5) mg/dL Magnesium (1.6-2.3) mg/dL Total Bilirubin (0.2-1.3) mg/dL AST (17-59) U/L ALT (4-49) U/L Alkaline Phosphatase (38-126) U/L Ammonia (<30) umol/L Creatine Kinase (55-170) U/L CK-MB (CK-2) (0.0-2.4) ng/mL Troponin I (0.000-0.034) ng/mL NT-Pro-B Natriuret Pep 2060 pg/mL Total Protein (6.3-8.2) g/dL Albumin (3.5-5.0) g/dL Salicylates mg/dL Acetaminophen ug/mL Serum Alcohol mg/dL - EKG Data -: EKG Interpreted by Me (EKG sinus rhythm at T1 GA 220 QRS 72 QTC 450) - Radiology Data Radiology results: report reviewed (CT brain Cspine , CXR and XR pelvis negative for acute disaese), image reviewed Critical Care Time Critical Care Time: Yes Total Critical Care Time: 31 Disposition Clinical Impression: Fall, Altered mental state, ARF (acute renal failure), Anemia, Lactic acidosis Disposition: ADMITTED IP TO THIS HOSP Condition: Fair Is patient prescribed a controlled substance at d/c from ED?: No
--- NOTE | 2020-01-06 22:01 | XR ---
EXAMINATION TYPE: XR pelvis AP view DATE OF EXAM: 01/06/2020 CLINICAL HISTORY: pain TECHNIQUE: Single view the pelvis is submitted. FINDINGS: No evidence for fracture, dislocation or bony lesion. Joint spaces are well-preserved. S I joints appear symmetric. IMPRESSION: 1. No acute fracture or dislocation seen. ICD 10 NO FRACTURE, INITIAL EVALUATION
--- NOTE | 2020-01-06 22:01 | XR ---
EXAMINATION TYPE: XR chest 1V DATE OF EXAM: 01/06/2020 HISTORY: Shortness of breath. COMPARISON: 09/12/2019 TECHNIQUE: Single view of the chest is submitted. FINDINGS: Demonstrated are scattered senescent parenchymal change. There is no evidence for focal infiltrate. The heart is stable. Hilar and mediastinal structures are within normal limits. Degenerative changes are seen of the dorsal spine. IMPRESSION: 1. Chronic changes without evidence for acute pulmonary disease.
[2020-01-06 22:08] LABS: Anisocytosis Slight; Basophils % (A) 1 %; Eosinophils # (A) 0.1 k/uL (0-0.7); Eosinophils % (A) 2 %; HCT 27.1 % (39.0-53.0); HGB 9.2 gm/dL (13.0-17.5); Lymphocytes # (A) 1.6 k/uL (1.0-4.8); Lymphocytes % (A) 32 %; MCH 39.9 pg (25.0-35.0); MCHC 34.1 g/dL (31.0-37.0); MCV 116.9 fL (80.0-100.0); Macrocytosis Marked; Mean Platelet Volume 8.8; Monocytes # (A) 0.2 k/uL (0-1.0); Monocytes % (A) 4 %; Neutrophils % (A) 59 %; Platelet Count 127 k/uL (150-450); RBC 2.32 m/uL (4.30-5.90); RDW 17.4 % (11.5-15.5)
[2020-01-06 22:13] LABS: ALT 11 U/L (4-49); AST 34 U/L (17-59); Acetaminophen <10.0 ug/mL; African American GFR (CKD) 25 (>60 ml/min/1.73 sqM); Albumin 2.8 g/dL (3.5-5.0); Alcohol 35 mg/dL; Alkaline Phosphatase 26 U/L (38-126); Anion Gap 12 mmol/L; Blood Urea Nitrogen 22 mg/dL (9-20); Calcium 8.6 mg/dL (8.4-10.2); Carbon Dioxide 15 mmol/L (22-30); Chloride 109 mmol/L (98-107); Creatine Kinase 244 U/L (55-170); Glucose 93 mg/dL (74-99); Magnesium 1.5 mg/dL (1.6-2.3); Non-African American GFR(CKD) 22 (>60 ml/min/1.73 sqM); Phosphorus 3.1 mg/dL (2.5-4.5); Potassium 3.5 mmol/L (3.5-5.1); Salicylate <1.0 mg/dL; Sodium 136 mmol/L (137-145); Total Bilirubin 0.7 mg/dL (0.2-1.3); Total Protein 5.2 g/dL (6.3-8.2)
[2020-01-06 22:17] LABS: Lactic Acid, Venous 7.2 mmol/L (0.7-2.0)
[2020-01-06] MEDS ORDERED: SODIUM CHLORIDE 0.9% 2,000 ML IV STA (22:23)
[2020-01-06] MEDS ORDERED: NALOXONE 0.4 MG/ML 1 ML VIAL IV PRN (22:24)
[2020-01-06] MEDS ORDERED: IPRATROPIUM-ALBUTEROL 3 ML NEB INHALATION PRN (22:24)
--- NOTE | 2020-01-06 22:27 | CT ---
EXAMINATION TYPE: CT brain danial masters DATE OF EXAM: 01/06/2020 COMPARISON: None HISTORY: frequent falls CT DLP: 1631.7 mGycm Automated exposure control for dose reduction was used. Exam performed with no contrast. There is cerebral cortical atrophy. There is large area of hypodensity involving the left posterior t emporal lobe and left occipital lobe consistent with an old infarct. There is no mass effect. There i s no midline shift. There is no sign of intracranial hemorrhage. The calvarium is intact. There is 8m m hypodense focus posterior left thalamus consistent with old lacunar infarct. The skull base is inta ct. Cervical vertebra have normal alignment. There is some disc space narrowing at C5-6 and C6-7 with spu r formation. There is no compression fracture. Facet joints are intact. IMPRESSION: Spondylotic changes in the lower cervical spine. No fracture. 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 No acute intracranial abnormality. Ol d left thalamic lacunar infarct.
[2020-01-06] MEDS ORDERED: SODIUM CHLORIDE 0.9% 1,000 ML IV SCH (22:30)
[2020-01-06] MEDS ORDERED: THIAMINE 100 MG/ML 2 ML VIAL IM STA (22:34)
[2020-01-06] MEDS ORDERED: LORazepam 2 MG/ML INJ IV PRN (22:34)
[2020-01-06 22:35] LABS: Creatine Kinase MB 6.1 ng/mL (0.0-2.4)
[2020-01-06 22:36] LABS: Hypochromasia (M) Present; Polychromasia Present
[2020-01-06] MEDS ORDERED: LORazepam 2 MG/ML INJ IV STA (22:38)
[2020-01-06 22:43] LABS: Troponin I 0.105 ng/mL (0.000-0.034)
[2020-01-06] MEDS: MAGNESIUM SULFATE-D5W PMX 1 GM in DEXTROSE/WATER 1 100ML.BAG IVPB SCH (23:01)
[2020-01-06] MEDS: THIAMINE 100 MG TAB PO SCH (23:03)
--- NOTE | 2020-01-06 23:14 | CT ---
EXAMINATION TYPE: CT ChestAbdPelvis wo con DATE OF EXAM: 01/06/2020 COMPARISON: None HISTORY: frequent falls, pain CT DLP: 982.5 mGycm Automated exposure control for dose reduction was used. Images were obtained without contrast from the thoracic inlet to the floor the pelvis. There is low density 1 cm nodule in the superior segment right lower lobe in the right paraspinal reg ion. There is some mild infiltrate in the superior segment left lower lobe. There is some mild subple ural infiltrate lateral aspect right lower lobe. There is no pleural effusion. There is no pericardia l effusion. Thoracic aorta is intact. Ascending aorta measures 3.6 cm. There is no aneurysm. There is no mediastinal adenopathy. There are no hilar masses. Heart size is fairly normal. There is small hiatal hernia. Liver shows no focal defect. Gallbladder appears normal. Stomach has no rmal size. Spleen is intact. There is no evidence of pancreatic mass. There is no adrenal mass. Kidneys have normal size. There is no hydronephrosis. Ureters are not dilat ed. There is some atherosclerotic vascular calcification. Abdominal aorta is atheromatous. There is n o retroperitoneal adenopathy. Bladder distends smoothly. There is no inguinal hernia. There are calci fic densities in the rectum that could be suppositories. There is no evidence of a pelvic mass. There is no evidence of thickened appendix. There is no mesenteric edema. There is no ascites or free air. There is no bowel obstruction. Thoracic and lumbar vertebra have normal alignment. There is no compression fracture. There are ruiz al wires. The bony pelvis is intact. Hip joints are intact. Shoulder joints are intact. Ribs appear intact. IMPRESSION: There are mild bilateral pulmonary infiltrates probably related to inflammatory disease. Small right lower lobe nodule. Also probably due to inflammatory disease. Atherosclerotic vascular disease. No sign of acute traumatic injury of the chest abdomen pelvis.
[2020-01-06 23:22] LABS: Glucose,Whole Blood 91 mg/dL (75-99)
[2020-01-06 23:26] LABS: VBG PH 7.34 (7.31-7.41)
[2020-01-06 23:34] LABS: INR 0.9 (<1.2); Partial Thromboplastin Time 24.7 sec (22.0-30.0); Prothrombin Time 9.7 sec (9.0-12.0)
[2020-01-07] MEDS: MAGNESIUM SULFATE-D5W PMX 1 GM in DEXTROSE/WATER 1 100ML.BAG IVPB SCH ×3 (00:18→07:00)
[2020-01-07 01:03] LABS: Appearance,Urine Clear (Clear); Bilirubin,Urine Negative (Negative); Blood,Urine Moderate (Negative); Color,Urine Yellow; Glucose,Urine (UA) Negative (Negative); Hyaline Casts,Urine 186 /lpf (0-2); Ketones,Urine Negative (Negative); Leukocyte Esterase,Urine Negative (Negative); Mucus,Urine Occasional /hpf; Nitrite,Urine Negative (Negative); Protein,Urine Negative (Negative); RBC,Urine 12 /hpf (0-5); Squamous Epithelial Cell,Urine 1 /hpf (0-4); Urobilinogen,Urine <2.0 mg/dL (<2.0); WBC,Urine 2 /hpf (0-5)
--- NOTE | 2020-01-07 01:17 | P.HPIM ---
History of Present Illness H&P Date: 01/06/20 Chief Complaint: frequent falling 69 year old male with diastolic CHF, venous thromboembolism, hypertension , CAD patient was brought in by family , due to frequent falls. family not available at this time, history obtained from patient , and limited. he claims, that since his last discharge in September 2019, patient claims his overall health has been declining, he reports occasional exertional dyspnea, frequent falls due to feeling week in the legs, denies any associated dizziness or lightheadedness, denies any nausea or vomiting, but he admits to frequent falls resulting in head injury , he is on eliquis for PE which was diagnosed earlier this year. he had even more frequent falls over the past two days, and he has been feeling progressively weaker in bilateral legs. family brought the patient for concerns regarding stroke. he admits to head injury with todays fall, but denies passing out. he is on blood thinner , ct of the head in the ED showed no acute bleeding. patient was also found dehydrated with elevated lactic acid, chronic anemia with macrocytosis, COSME on CKD, elevated troponins, and elevated blood alcohol level of 35 patient admits to daily drinking of at least one or two shots with each meal. he also admits to decrease PO intake , he uses a walker at home to ambulate. he denies any GI bleeding , he currently denies any chest pain or SOB Review of Systems Pertinent positives as noted in HPI. All other systems were reviewed and are negative Past Medical History Past Medical History: Heart Failure, Hypertension, Myocardial Infarction ([place]), Pulmonary Embolus (PE) Last Myocardial Infarction Date:: UNSURE History of Any Multi-Drug Resistant Organisms: None Reported Past Surgical History: Coronary Bypass/CABG, Heart Catheterization With Stent Date of Last Stent Placement:: UNSURE Past Psychological History: No Psychological Hx Reported Smoking Status: Current every day smoker Past Alcohol Use History: Daily Past Drug Use History: None Reported - Past Family History Mother History Unknown: Yes Medications and Allergies Home Medications Medication Instructions Recorded Confirmed Type Aspirin EC [Ecotrin Low Dose] 81 mg PO DAILY 09/04/19 09/04/19 History Apixaban [Eliquis] 5 mg PO BID 09/05/19 09/05/19 History Loratadine 10 mg PO DAILY 09/05/19 09/05/19 History Metoprolol Succinate (ER) [Toprol 1 tab PO DAILY 09/05/19 09/05/19 History XL] Montelukast [Singulair] 10 mg PO HS 09/05/19 09/05/19 History Omeprazole [PriLOSEC] 40 mg PO BID 09/05/19 09/05/19 History Simvastatin 40 mg PO HS 09/05/19 09/05/19 History Amoxic-Pot Clav 875-125Mg 1 tab PO Q12HR 3 Days #6 tab 09/15/19 Rx [Augmentin 875-125] Cyanocobalamin [Vitamin B-12] 1,000 mcg PO DAILY #90 tablet 09/15/19 Rx Fluticasone Nasal [place] [Flonase 2 spray EA NOSTRIL DAILY spr 09/15/19 Rx Nasal [place]] Furosemide [Lasix] 20 mg PO DAILY tab 09/15/19 Rx Gabapentin [Neurontin] 300 mg PO TID #21 cap 09/15/19 Rx HYDROcodone/APAP 10-325MG [[place] 1 each PO Q6H PRN #24 tab 09/15/19 Rx 10-325] Magnesium Oxide [Mag-Ox] 400 mg PO BID tab 09/15/19 Rx Thiamine [Vitamin B-1] 100 mg PO BID-W/MEALS tab 09/15/19 Rx guaiFENesin-Coden 100-10MG/5ML 10 ml PO Q6H PRN ml 09/15/19 Rx [Robitussin AC] lisinopriL [Zestril] 5 mg PO DAILY tab 09/15/19 Rx Allergies Allergy/AdvReac Type Severity Reaction Status Date / Time No Known Allergies Allergy Verified 09/05/19 14:22 Physical Exam Vitals: Vital Signs Temp Pulse Resp BP Pulse Ox 01/06/20 23:08 97.7 F 78 18 130/80 98 01/06/20 22:45 78 18 106/66 99 01/06/20 22:30 81 20 124/62 99 01/06/20 22:15 81 18 120/67 100 01/06/20 22:12 20 01/06/20 22:00 85 22 124/66 100 01/06/20 21:34 97.6 F 93 18 128/67 99 Intake and Output 01/06/20 01/06/20 01/07/20 14:59 22:59 06:59 Other: Weight 84.368 kg Constitutional: No acute distress, conversant, pleasant Eyes: Anicteric sclerae, moist conjunctiva, Pupils equal round reactive to light ENMT: NC/AT Oropharynx clear, no erythema, or exudates Neck: Supple, FROM, no masses, or JVD No carotid bruits No thyromegaly Lungs: Clear to auscultation Clear to percussion Normal respiratory effort, no accessory muscle use Cardiovascular: Heart regular in rate and rhythm, No murmurs, gallops, or rubs No peripheral edema Abdominal: Soft Nontender, no guarding, rebound or rigidity Abdomen moving with respiration Normoactive bowel sounds No hepatomegaly, No splenomegaly No palpable mass No abdominal wall hernia noted kovacs cath in place Skin: Normal temperature, tone, texture, turgor No induration No subcutaneous nodules No rash, lesions No ulcers Extremities: No digital cyanosis No clubbing Pedal pulses intact and symmetrical Radial pulses intact and symmetrical No calf tenderness Psychiatric: Alert and oriented to person, place Appropriate affect fair judgement Neuro Muscles Strength 3/5 in bilateral upper extremities, and 2/5 in bilateral lower extremities, Sensation to light touch grossly present throughout Cranial nerves II-XII grossly intact No focal sensory deficits Lymphatics: no palpable cervical or supraclavicular , or inguinal lymph nodes Results CBC & Chem 7: 01/06/20 21:49 01/06/20 21:49 Labs: Abnormal Lab Results - Last 24 Hours (Table) 01/06/20 01/06/20 01/06/20 Range/Units 21:41 21:49 21:49 RBC 2.32 L (4.30-5.90) m/uL Hgb 9.2 L (13.0-17.5) gm/dL Hct 27.1 L (39.0-53.0) % MCV 116.9 H (80.0-100.0) fL MCH 39.9 H (25.0-35.0) pg RDW 17.4 H (11.5-15.5) % Plt Count 127 L (150-450) k/uL Macrocytosis Marked A VBG pCO2 31 L (37-51) mmHg VBG HCO3 17 L (24-28) mmol/L Sodium 136 L (137-145) mmol/L Chloride 109 H (98-107) mmol/L Carbon Dioxide 15 L (22-30) mmol/L BUN 22 H (9-20) mg/dL Creatinine 2.83 H (0.66-1.25) mg/dL Plasma Lactic Acid John (0.7-2.0) mmol/L Magnesium 1.5 L (1.6-2.3) mg/dL Alkaline Phosphatase 26 L (38-126) U/L Creatine Kinase 244 H (55-170) U/L CK-MB (CK-2) (0.0-2.4) ng/mL Troponin I (0.000-0.034) ng/mL Total Protein 5.2 L (6.3-8.2) g/dL Albumin 2.8 L (3.5-5.0) g/dL 01/06/20 01/06/20 Range/Units 21:49 21:49 RBC (4.30-5.90) m/uL Hgb (13.0-17.5) gm/dL Hct (39.0-53.0) % MCV (80.0-100.0) fL MCH (25.0-35.0) pg RDW (11.5-15.5) % Plt Count (150-450) k/uL Macrocytosis VBG pCO2 (37-51) mmHg VBG HCO3 (24-28) mmol/L Sodium (137-145) mmol/L Chloride (98-107) mmol/L Carbon Dioxide (22-30) mmol/L BUN (9-20) mg/dL Creatinine (0.66-1.25) mg/dL Plasma Lactic Acid John 7.2 H* (0.7-2.0) mmol/L Magnesium (1.6-2.3) mg/dL Alkaline Phosphatase (38-126) U/L Creatine Kinase (55-170) U/L CK-MB (CK-2) 6.1 H (0.0-2.4) ng/mL Troponin I 0.105 H* (0.000-0.034) ng/mL Total Protein (6.3-8.2) g/dL Albumin (3.5-5.0) g/dL Assessment and Plan Assessment: COSME on CKD, possible obstructive uropathy 2/2 BPH check renal US rule out hydronephrosis avoid nephrotoxic meds monitor urine output IVF hydration lactic acidosis close monitoring follwo up LA IVF hydration frequent falling, with head injury on blood thinner close monitoring neurochecks PT/OT fall precautions alcohol dependant monitor for alcohol withdrawal IVF hydration thiamine benzo per CIWA hypomagnesemia replace and monitor level chronic conditions venous thromboembolism, on eliquis hypertension , verify home meds, currently on hold due to hypotension Diastolic CHF, compensated CAD macrocytic anemia with Vit B12 deficiency , stable Hgb, resume vitamin B12 ICU care follow up labs Preformed a thorough record review from recent hospitalization September 2019 for UTI CODE STATUS:full code DVT prophylaxis: on eliquis Discussed with: Patient, ER, RN Anticipated length of stay > than [address]: pending clinical course A total of 75 minutes was spent on the care of this complex patient more than 50% of the time was spent in counseling and care coordination.
[2020-01-07 04:41] LABS: Anisocytosis Slight; Basophils % (A) 0 %; Eosinophils # (A) 0.2 k/uL (0-0.7); Eosinophils % (A) 2 %; HCT 29.2 % (39.0-53.0); HGB 9.5 gm/dL (13.0-17.5); Lymphocytes # (A) 1.7 k/uL (1.0-4.8); Lymphocytes % (A) 24 %; MCH 39.9 pg (25.0-35.0); MCHC 32.5 g/dL (31.0-37.0); MCV 122.8 fL (80.0-100.0); Macrocytosis Marked; Mean Platelet Volume 8.3; Monocytes # (A) 0.3 k/uL (0-1.0); Monocytes % (A) 5 %; Neutrophils # (A) 4.8 k/uL (1.3-7.7); Neutrophils % (A) 67 %; Platelet Count 79 k/uL (150-450); RBC 2.38 m/uL (4.30-5.90); RDW 17.6 % (11.5-15.5); WBC 7.2 k/uL (3.8-10.6)
[2020-01-07 05:09] LABS: Albumin 2.7 g/dL (3.5-5.0); Magnesium 1.8 mg/dL (1.6-2.3); Phosphorus 3.7 mg/dL (2.5-4.5); Potassium 3.5 mmol/L (3.5-5.1); Total Protein 5.5 g/dL (6.3-8.2)
[2020-01-07] MEDS: SODIUM CHLORIDE 0.9% 1,000 ML IV SCH ×2 (05:13→12:44)
[2020-01-07] MEDS ORDERED: Potassium Replacement Protocol 1 EACH MISC MISCELLANE PRN (05:25)
[2020-01-07] MEDS ORDERED: Magnesium Replacement Protocol 1 EACH MISC MISCELLANE PRN (05:26)
[2020-01-07] MEDS: THIAMINE 100 MG TAB PO SCH ×2 (05:41→16:59)
[2020-01-07] MEDS: POTASSIUM CHLORIDE ER 20 MEQ TAB.ER PO SCH (05:41)
[2020-01-07] MEDS ORDERED: APIXABAN 5 MG TAB PO SCH (09:00)
--- NOTE | 2020-01-07 09:03 | US ---
EXAMINATION TYPE: US renals and bladder DATE OF EXAM: 01/07/2020 COMPARISON: CT abdomen pelvis 01/06/2020 CLINICAL HISTORY: Obstructive uropathy. ARF, exam done portable in ICU. EXAM MEASUREMENTS: Right Kidney: 9.4 x 5.3 x 4.5 cm Left Kidney: 9.3 x 5.9 x 4.3 cm Difficult and limited study due to patient body habitus Right Kidney: Atrophic, cortical thinning. No hydronephrosis, nephrolithiasis, or masses seen. Left Kidney: Atrophic, cortical thinning. No hydronephrosis, nephrolithiasis, or masses seen. Bladder: Nondistended with Rooney catheter. IMPRESSION: 1. Atrophic kidneys with cortical thinning bilaterally most likely represents medical renal disease. No hydronephrosis bilaterally. 2. Nondistended urinary bladder with Rooney catheter.
--- NOTE | 2020-01-07 09:14 | US ---
EXAMINATION TYPE: US carotid duplex BILAT DATE OF EXAM: 01/07/2020 COMPARISON: NONE CLINICAL HISTORY: Falls, concern for carotid stenosis. EXAM MEASUREMENTS: RIGHT: Peak Systolic Velocity (PSV) cm/sec ----- Right CCA: 82.0 ----- Right ICA: 119.4 ----- Right ECA: 66.9 ICA/CCA ratio: 1.5 RIGHT: End Diastole cm/sec ----- Right CCA: 18.1 ----- Right ICA: 38.6 ----- Right ECA: 8.7 LEFT: Peak Systolic Velocity (PSV) cm/sec ----- Left CCA: 79.0 ----- Left ICA: 211.6 ----- Left ECA: 107.3 ICA/CCA ratio: 2.7 LEFT: End Diastole cm/sec ----- Left CCA: 21.9 ----- Left ICA: 47.1 ----- Left ECA: 5.0 VERTEBRALS (direction of flow): Right Vertebral: Antegrade Left Vertebral: Antegrade Rhythm: Arrhythmia Mild heterogenous plaque bilaterally. IMPRESSION: 1. 50-69% stenosis of the left internal carotid artery. 2. No hemodynamically significant stenosis of the right carotid artery. Any stenosis that may be pre sent on the right is less than 50%. Criteria for Assigning % of Stenosis / Diameter reduction (Estimation based on the indirect measurements of the internal carotid artery velocities (ICA PSV). 1. Normal (no stenosis)=ICA PSV < 125 cm/s: ratio < 2.0: ICA EDV<40 cm/s. 2. Less than 50% stenosis=ICA PSV < 125 cm/s: ratio < 2.0: ICA EDV<40 cm/s. 3. 50 to 69% stenosis=ICA PSV of 125 to 230 cm/s: ration 2.0 ? 4.0: ICA EDV 40-100 cm/s. 4. Greater than 70% stenosis to near occlusion= ICA PSV > 230 cm/s: ratio > 4.0: ICA EDV > 100 cm/s. 5. Near occlusion= ICA PSV velocities may be low or undetectable: variable ratio and ICA EDV. 6. Total occlusion=unable to detect flow.
--- NOTE | 2020-01-07 09:20 | P.CRDCN ---
History of Present Illness Consult date: 01/07/20 History of present illness: This is a 69-year-old gentleman with history of ischemic heart disease with a previous bypass surgery and also stent placement, diastolic CHF and venous thromboembolism. This patient also drinks on a regular basis. He was brought to the hospital because of recurrent falls and suspected possible stroke. At the time of my examination patient is in ICU , sitting in his bed in no acute distress. He claims that is getting progressively weak and has been falling. No clear loss of consciousness. No complaints of any chest pain or shortness of breath. Patient's is anemic which seemed to be chronic. His alcohol level was moderate on admission. He denies any nausea or vomiting. His EKGs did not reveal any acute changes. His troponin was mildly elevated. Most probably patient may have some peripheral neuropathy and instability in walking. We'll check his blood pressure for any postural changes. We'll get additional troponin values. An echocardiogram done in August of this year showed preserved LV function. His proBNP is elevated. Further recommendations depend upon the typical course. If second troponin is also higher than the first one, we'll consider doing echocardiogram to assess LV function. Meanwhile, continue c urrent medical therapy. He chest x-ray did not reveal any evidence of CHF. Review of Systems As per the chart Past Medical History Past Medical History: Heart Failure, Hypertension, Myocardial Infarction ([place]), Pulmonary Embolus (PE) Last Myocardial Infarction Date:: UNSURE History of Any Multi-Drug Resistant Organisms: None Reported Past Surgical History: Coronary Bypass/CABG, Heart Catheterization With Stent Past Anesthesia/Blood Transfusion Reactions: No Reported Reaction Date of Last Stent Placement:: UNSURE Past Psychological History: No Psychological Hx Reported Smoking Status: Current every day smoker Past Alcohol Use History: Daily Past Drug Use History: None Reported - Past Family History Mother History Unknown: Yes Medications and Allergies Home Medications Medication Instructions Recorded Confirmed Type Aspirin EC [Ecotrin Low Dose] 81 mg PO DAILY 09/04/19 09/04/19 History Apixaban [Eliquis] 5 mg PO BID 09/05/19 09/05/19 History Loratadine 10 mg PO DAILY 09/05/19 09/05/19 History Metoprolol Succinate (ER) [Toprol 1 tab PO DAILY 09/05/19 09/05/19 History XL] Montelukast [Singulair] 10 mg PO HS 09/05/19 09/05/19 History Omeprazole [PriLOSEC] 40 mg PO BID 09/05/19 09/05/19 History Simvastatin 40 mg PO HS 09/05/19 09/05/19 History Amoxic-Pot Clav 875-125Mg 1 tab PO Q12HR 3 Days #6 tab 09/15/19 Rx [Augmentin 875-125] Cyanocobalamin [Vitamin B-12] 1,000 mcg PO DAILY #90 tablet 09/15/19 Rx Fluticasone Nasal [place] [Flonase 2 spray EA NOSTRIL DAILY spr 09/15/19 Rx Nasal [place]] Furosemide [Lasix] 20 mg PO DAILY tab 09/15/19 Rx Gabapentin [Neurontin] 300 mg PO TID #21 cap 09/15/19 Rx HYDROcodone/APAP 10-325MG [[place] 1 each PO Q6H PRN #24 tab 09/15/19 Rx 10-325] Magnesium Oxide [Mag-Ox] 400 mg PO BID tab 09/15/19 Rx Thiamine [Vitamin B-1] 100 mg PO BID-W/MEALS tab 09/15/19 Rx guaiFENesin-Coden 100-10MG/5ML 10 ml PO Q6H PRN ml 09/15/19 Rx [Robitussin AC] lisinopriL [Zestril] 5 mg PO DAILY tab 09/15/19 Rx Allergies Allergy/AdvReac Type Severity Reaction Status Date / Time No Known Allergies Allergy Verified 09/05/19 14:22 Physical Exam Vitals: Vital Signs Temp Pulse Resp BP Pulse Ox 01/07/20 07:00 85 22 142/74 95 01/07/20 06:00 91 15 123/72 95 01/07/20 05:00 89 18 108/64 99 01/07/20 04:00 98.6 F 83 13 106/81 100 01/07/20 03:00 86 19 103/63 01/07/20 02:00 86 20 93/50 95 01/07/20 01:00 88 22 93/50 98 01/07/20 00:00 93 20 89/52 96 01/06/20 23:08 97.7 F 78 18 130/80 98 01/06/20 23:00 98.5 F 84 18 106/66 100 01/06/20 22:45 78 18 106/66 99 01/06/20 22:30 81 20 124/62 99 01/06/20 22:15 81 18 120/67 100 01/06/20 22:12 20 01/06/20 22:00 85 22 124/66 100 01/06/20 21:34 97.6 F 93 18 128/67 99 Intake and Output 01/06/20 01/07/20 01/07/20 22:59 06:59 14:59 Intake Total 3240 130 Output Total 1125 125 Balance 2115 5 Intake: IV 3240 130 Magnesium Sulfate-D5w Pmx 200 1 gm In Dextrose/Water 1 100ml.bag @ 100 mls/hr IVPB Q1H TAMMY Rx#: [id number] Sodium Chloride 0.9% 1, 1040 130 000 ml @ 130 mls/hr IV . Q7H42M STA Rx#:[id number] Sodium Chloride 0.9% 1, 2000 000 ml @ 999 mls/hr IV . Q1H1M STA Rx#:[id number] Output: Urine 1125 125 Other: Voiding Method Indwelling Catheter # Bowel Movements 2 Weight 84.368 kg 89.8 kg GENERAL EXAM: Patient is alert and doesn't appear to be in any acute distress HEENT: Normocephalic. Normal reaction of pupils, equal size, normal range of extraocular motion. No erythema or exudates in the throat. NECK: No masses, no nuchal rigidity. CHEST: No chest wall deformity. LUNGS: Equal air entry with no crackles or wheeze. HEART: S1 and S2 normal with no audible mumurs or gallops. Regular rhythm, femorals equal on both sides.. ABDOMEN: No hepatosplenomegaly, normal bowel sounds, no guarding or rigidity. SKIN: No rashes CENTRAL NERVOUS SYSTEM: No focal deficits. EXTREMITIES: Mild edema Results 01/07/20 04:28 01/07/20 04:28 Cardiac Enzymes 01/06/20 01/06/20 01/07/20 Range/Units 21:49 21:49 04:28 AST 34 36 (17-59) U/L CK-MB (CK-2) 6.1 H (0.0-2.4) ng/mL Troponin I 0.105 H* (0.000-0.034) ng/mL Coagulation 01/06/20 Range/Units 21:54 PT 9.7 (9.0-12.0) sec APTT 24.7 (22.0-30.0) sec Lipids 01/07/20 Range/Units 04:28 Triglycerides 66 (<150) mg/dL Cholesterol 111 (<200) mg/dL HDL Cholesterol 61 H (40-60) mg/dL CBC 01/06/20 01/07/20 Range/Units 21:49 04:28 WBC 5.0 7.2 (3.8-10.6) k/uL RBC 2.32 L 2.38 L (4.30-5.90) m/uL Hgb 9.2 L 9.5 L (13.0-17.5) gm/dL Hct 27.1 L 29.2 L (39.0-53.0) % Plt Count 127 L 79 L (150-450) k/uL Comprehensive Metabolic Panel 01/06/20 01/07/20 Range/Units 21:49 04:28 Sodium 136 L 138 (137-145) mmol/L Potassium 3.5 3.5 (3.5-5.1) mmol/L Chloride 109 H 113 H (98-107) mmol/L Carbon Dioxide 15 L 20 L (22-30) mmol/L BUN 22 H 21 H (9-20) mg/dL Creatinine 2.83 H 2.33 H (0.66-1.25) mg/dL Glucose 93 91 (74-99) mg/dL Calcium 8.6 8.0 L (8.4-10.2) mg/dL AST 34 36 (17-59) U/L ALT 11 12 (4-49) U/L Alkaline Phosphatase 26 L 30 L (38-126) U/L Total Protein 5.2 L 5.5 L (6.3-8.2) g/dL Albumin 2.8 L 2.7 L (3.5-5.0) g/dL Current Medications Generic Name Dose Route Start Last Admin Trade Name Freq PRN Reason Stop Dose Admin Albuterol/Ipratropium 3 ml 01/06/20 22:24 Duoneb 0.5 Mg-3 Mg/3 Ml Soln INHALATION RT-Q4H PRN Shortness Of Breath Or Wheezing Apixaban 5 mg 01/07/20 09:00 Eliquis PO BID TAMMY Sodium Chloride 1,000 mls @ 130 mls/hr 01/07/20 05:15 01/07/20 05:13 Saline 0.9% IV 130 mls/hr .Q7H42M TAMMY Administration Lorazepam 1 mg 01/06/20 22:34 Ativan IV Q2HR PRN CIWA 8 or 9 Lorazepam 1 mg 01/06/20 22:34 Ativan IV Q1HR PRN CIWA 10 to 15 Lorazepam 2 mg 01/06/20 22:34 Ativan IV 01/08/20 22:34 Q10M PRN CIWA 16 or higher Miscellaneous Information 1 each 01/07/20 05:25 Potassium Per Protocol MISCELLANE DAILY PRN Per Protocol Protocol Miscellaneous Information 1 each 01/07/20 05:26 Magnesium Per Protocol MISCELLANE DAILY PRN Per Protocol Protocol Naloxone HCl 0.2 mg 01/06/20 22:24 Narcan IV Q2M PRN Opioid Reversal Pantoprazole Sodium 40 mg 01/07/20 09:00 Protonix IV DAILY TAMMY Thiamine HCl 100 mg 01/06/20 17:30 01/07/20 05:41 Vitamin B-1 PO 100 mg BID-W/MEALS TAMMY Administration Intake and Output 01/06/20 01/07/20 01/07/20 22:59 06:59 14:59 Intake Total 3240 130 Output Total 1125 125 Balance 2115 5 Intake: IV 3240 130 Magnesium Sulfate-D5w Pmx 200 1 gm In Dextrose/Water 1 100ml.bag @ 100 mls/hr IVPB Q1H TAMMY Rx#: [id number] Sodium Chloride 0.9% 1, 1040 130 000 ml @ 130 mls/hr IV . Q7H42M STA Rx#:[id number] Sodium Chloride 0.9% 1, 2000 000 ml @ 999 mls/hr IV . Q1H1M STA Rx#:[id number] Output: Urine 1125 125 Other: Voiding Method Indwelling Catheter # Bowel Movements 2 Weight 84.368 kg 89.8 kg 01/07/20 04:28 01/07/20 04:28 EKG Interpretations (text) Sinus rhythm Assessment and Plan (1) Chronic diastolic CHF (congestive heart failure) Current Visit: Yes Status: Acute Code(s): I50.32 - CHRONIC DIASTOLIC (CONGESTIVE) HEART FAILURE SNOMED Code(s): 848161035 (2) ARF (acute renal failure) Current Visit: Yes Status: Acute Code(s): N17.9 - ACUTE KIDNEY FAILURE, UNSPECIFIED SNOMED Code(s): 06395968 (3) Anemia Current Visit: Yes Status: Acute Code(s): D64.9 - ANEMIA, UNSPECIFIED SNOMED Code(s): 290193999 (4) Fall Current Visit: Yes Status: Acute Code(s): W19.XXXA - UNSPECIFIED FALL, INITIAL ENCOUNTER SNOMED Code(s): 5525100 (5) Lactic acidosis Current Visit: Yes Status: Acute Code(s): E87.2 - ACIDOSIS SNOMED Code(s): 61004100 (6) CAD (coronary artery disease) Current Visit: Yes Status: Acute Code(s): I25.10 - ATHSCL HEART DISEASE OF [place] CORONARY ARTERY W/O ANG PCTRS SNOMED Code(s): 71757436 Plan: We'll obtain another troponin value. We'll repeat the echocardiogram, if the troponin is elevated. We'll check the blood pressure for any postural changes. Consider neurology consult for possible neuropathy. Further recommendation depend upon the clinical course
--- NOTE | 2020-01-07 09:42 | P.NPCON ---
History of Present Illness - Reason for Consult acute renal failure - History of Present Illness Reason for consultation: Acute kidney injury History of present illness: Patient is a 69-year-old male seen in renal consultation for acute kidney injury. Creatinine was 2.83 on admission and is 2.33 today. Patient was admitted with acute kidney injury in August 2019 and at that time his creatinine peaked at 2.35 and came down to 1.18 as of 09/15/2019. Patient presented to the hospital after he sustained a fall. Patient states his legs gave out and he fell. He denies dizziness or syncopal episodes. Denies nausea or vomiting. Patient states he's been progressively getting weaker and has sustained falls in the past as well. He does have history of PE and is maintained on anticoagulation. Hemoglobin was 9.2 on admission and is 9.5 today. He denies any active bleeding. Good urine output. No hematuria or dysuria. Denies history of diabetes. Denies family history of renal disease. He does take Lasix at home which is currently held. He is maintained on IV fluids at this time. Blood pressure was low in the systolic 80s to 90s but improved now. Vital signs are stable. General: The patient appeared well nourished and normally developed. HEENT: Head exam is unremarkable. Neck is without jugular venous distension. LUNGS: Lungs are clear to auscultation and percussion. Breath sounds decreased. HEART: Rate and Rhythm are regular. ABDOMEN: Soft, nontender. EXTREMITITES: No clubbing, cyanosis, or edema. Past Medical History Past Medical History: Heart Failure, Hypertension, Myocardial Infarction (RI), Pulmonary Embolus (PE) Last Myocardial Infarction Date:: UNSURE History of Any Multi-Drug Resistant Organisms: None Reported Past Surgical History: Coronary Bypass/CABG, Heart Catheterization With Stent Past Anesthesia/Blood Transfusion Reactions: No Reported Reaction Date of Last Stent Placement:: UNSURE Past Psychological History: No Psychological Hx Reported Smoking Status: Current every day smoker Past Alcohol Use History: Daily Past Drug Use History: None Reported - Past Family History Mother History Unknown: Yes Medications and Allergies Home Medications Medication Instructions Recorded Confirmed Type Aspirin EC [Ecotrin Low Dose] 81 mg PO DAILY 09/04/19 09/04/19 History Apixaban [Eliquis] 5 mg PO BID 09/05/19 09/05/19 History Loratadine 10 mg PO DAILY 09/05/19 09/05/19 History Metoprolol Succinate (ER) [Toprol 1 tab PO DAILY 09/05/19 09/05/19 History XL] Montelukast [Singulair] 10 mg PO HS 09/05/19 09/05/19 History Omeprazole [PriLOSEC] 40 mg PO BID 09/05/19 09/05/19 History Simvastatin 40 mg PO HS 09/05/19 09/05/19 History Amoxic-Pot Clav 875-125Mg 1 tab PO Q12HR 3 Days #6 tab 09/15/19 Rx [Augmentin 875-125] Cyanocobalamin [Vitamin B-12] 1,000 mcg PO DAILY #90 tablet 09/15/19 Rx Fluticasone Nasal [place] [Flonase 2 spray EA NOSTRIL DAILY spr 09/15/19 Rx Nasal [place]] Furosemide [Lasix] 20 mg PO DAILY tab 09/15/19 Rx Gabapentin [Neurontin] 300 mg PO TID #21 cap 09/15/19 Rx HYDROcodone/APAP 10-325MG [[place] 1 each PO Q6H PRN #24 tab 09/15/19 Rx 10-325] Magnesium Oxide [Mag-Ox] 400 mg PO BID tab 09/15/19 Rx Thiamine [Vitamin B-1] 100 mg PO BID-W/MEALS tab 09/15/19 Rx guaiFENesin-Coden 100-10MG/5ML 10 ml PO Q6H PRN ml 09/15/19 Rx [Robitussin AC] lisinopriL [Zestril] 5 mg PO DAILY tab 09/15/19 Rx Allergies Allergy/AdvReac Type Severity Reaction Status Date / Time No Known Allergies Allergy Verified 09/05/19 14:22 Physical Exam Vitals: Vital Signs Temp Pulse Resp BP Pulse Ox 01/07/20 09:00 100 12 92/59 100 01/07/20 08:00 7 L 135/71 99 01/07/20 07:00 85 22 142/74 95 01/07/20 06:00 91 15 123/72 95 01/07/20 05:00 89 18 108/64 99 01/07/20 04:00 98.6 F 83 13 106/81 100 01/07/20 03:00 86 19 103/63 01/07/20 02:00 86 20 93/50 95 01/07/20 01:00 88 22 93/50 98 01/07/20 00:00 93 20 89/52 96 01/06/20 23:08 97.7 F 78 18 130/80 98 01/06/20 23:00 98.5 F 84 18 106/66 100 01/06/20 22:45 78 18 106/66 99 01/06/20 22:30 81 20 124/62 99 01/06/20 22:15 81 18 120/67 100 01/06/20 22:12 20 01/06/20 22:00 85 22 124/66 100 01/06/20 21:34 97.6 F 93 18 128/67 99 Intake and Output 01/06/20 01/07/20 01/07/20 22:59 06:59 14:59 Intake Total 3240 130 Output Total 1125 125 Balance 2115 5 Intake: IV 3240 130 Magnesium Sulfate-D5w Pmx 200 1 gm In Dextrose/Water 1 100ml.bag @ 100 mls/hr IVPB Q1H TAMMY Rx#: [id number] Sodium Chloride 0.9% 1, 1040 130 000 ml @ 130 mls/hr IV . Q7H42M STA Rx#:[id number] Sodium Chloride 0.9% 1, 2000 000 ml @ 999 mls/hr IV . Q1H1M STA Rx#:[id number] Output: Urine 1125 125 Other: Voiding Method Indwelling Catheter Indwelling Catheter # Bowel Movements 2 Weight 84.368 kg 89.8 kg Results - Lab Results Most recent lab results Calcium 8.0 mg/dL (8.4-10.2) L 01/07/20 04:28 Phosphorus 3.7 mg/dL (2.5-4.5) 01/07/20 04:28 Magnesium 1.8 mg/dL (1.6-2.3) 01/07/20 04:28 01/07/20 04:28 01/07/20 04:28 Assessment and Plan Plan: Assessment: 1. Acute kidney injury mostly prerenal secondary to hypotension and diuretics. Creatinine 2.83 on admission and is 2.32 today. Creatinine was as low as 1.18 as of 09/15/2019. No proteinuria. Renal ultrasound revealed no hydronephrosis. 2. Metabolic acidosis secondary to acute kidney injury and lactic acidosis. Improving. 3. Hypomagnesemia secondary to diuresis. Status post placement. 4. Hypokalemia secondary to diuresis. Status post replacement. 5. Chronic diastolic CHF. Plan: I will decrease rate of normal saline to 75 mL an hour. Hold off on diuretics. Continue to monitor renal function and urine output. Potassium and magnesium were replaced. Thank you for the consultation. I will continue to follow the patient with you during his hospital stay.
[2020-01-07] MEDS ORDERED: GABAPENTIN 300 MG CAP PO PRN (10:37)
--- NOTE | 2020-01-07 11:17 | P.PN ---
Subjective Progress Note Date: 01/07/20 Principal diagnosis: weakness Patient is a 69-year-old male with diastolic congestive heart failure, pulmonary embolism, hypertension, coronary artery disease, tobacco abuse, and ongoing alcohol use who presented to the ER due to frequent falls. In the ER he underwent an extensive evaluation. His vital signs were within normal limits on admission. Laboratory analysis showed hemoglobin 9.2, hematocrit 27.1, platelet count 127, VBG showed a normal pH of 7.34, carbon dioxide 15, BUN 22, creatinine 2.83, lactic acid 7.2, magnesium 1.5, and troponin 0.105, BNP mildly elevated at 2060. Chest x-ray showed no acute process but did show chronic changes. Pelvic x-rays showed no acute process. 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 He underwent a CT abdomen and pelvis which showed mild bilateral pulmonary infiltr ates probably related inflammatory disease with a small right lower lobe nodule. He was admitted for acute renal failure with generalized weakness. He was started on IV fluids and his diuretics were held. Patient was admitted to the ICU secondary to his lactic acidosis. His lactic acid normalized to less than 2 by the morning of 01/06. He underwent a renal ultrasound which showed no evidence of hydronephrosis. He was seen by urology who felt that he should stay off of diuretics and continue IV fluids bilateral lesser rate. He was seen by cardiology for his positive troponin, troponin was repeated and was down trending. It was felt that his troponin elevation was likely secondary to acute renal failure. Of note patient states he restarted all of his medications after not taking them for quite some time on 01/04/2020. Patient seen and examined at bedside. He complains of pain in his bilateral shoulders, chest, abdomen, knees, and lower legs. He states that he is still drinking approximately 3 shots daily. He reports recent increase in falls 2 in the last 2 days before that he is falling once weekly. He continues to drink 3 shots daily. He reports that he had quit taking all of his medications as he got a were not helping, he decided to restart all of them on 01/04/2020. He had also quit taking his blood thinner. He has not followed up with hematology oncology since being discharged earlier this summer. He has been taking B12 pills but no injections. Per nursing worked with therapy this morning and had significant lower extremity weakness. There was severe difficulty trying to get him back to the chair after working in therapy. She also notes that he was having a hard time with proprioception and difficulty feeding himself. General: non toxic , no distress, appears older than stated age, disheveled Derm: warm, dry Head: atraumatic, normocephalic, symmetric Eyes: EOMI, no lid lag, anicteric sclera Mouth: no lip lesion, mucus membranes dry Cardiovascular: S1S2 reg, no murmur, positive posterior tibial pulse bilateral, Lungs: CTA bilateral, no rhonchi, no rales , no accessory muscle use Abdominal: soft, nontender to palpation, no guarding, no appreciable organomegaly Ext: no gross muscle atrophy, 3+edema b/l LE R>L, no contractures Neuro: CN II-XI grossly intact, + intention tremor, poor coordniation when trying to grrasp things. Psych: Alert, oriented, appropriate affect Acute kidney injury on chronic kidney disease stage III -Nephrology recommendations appreciated -Renal ultrasound without significant hydronephrosis -Continue off of Zaroxolyn and Lasix -IV fluids -Avoid additional nephrotoxic -Repeat renal function in a.m. Multiple falls, Weakness with poor propriception - concern for B12 def vs Wernicke's versus prior stroke seen on CT - start Thiamin IM, consider BID dosing - recheck B 12 levels - Neuro consult - PT/OT - Fall precautions Anemia -Better than baseline of 7.7 -[id number] -Follow CBC Thrombocytopenia -Suspect reactive -Repeat CBC in a.m. -If continues to decrease will consult hematology Elevated troponin likely secondary to acute renal failure on chronic kidney disease -Downtrending -Cardiology recommendations -Continue with aspirin Alcohol abuse with potential for delirium tremens -Continue with CIWA protocol -Folic acid supplementation -Changed thiamine to IM 5 days Carotid artery disease - only infarcts seen on head CT - Left with 50-69% stenosis - outpatient vascular follow-up Lower extremity edema, hx of PE - resume eliquis - check B/l LE venous dopplers HTN - resume metoprolol - follow BP close was hypotensive on admission Compensated diastolic CHF Lacitc acidosis, resolved Hypomagnesemia, resolved DVT prophylaxis: eliquis Discussed with: patient, nursing Anticipated discharge: in 1-[address]: SNF A total of 45 minutes was spent on the care of this complex patient more than 50% of the time was spent in counseling and care coordination. Objective - Vital Signs Vital signs: Vital Signs Temp 98.6 F 01/07/20 04:00 Pulse 100 01/07/20 09:00 Resp 12 01/07/20 09:00 BP 92/59 01/07/20 09:00 Pulse Ox 100 01/07/20 09:00 Intake & Output 01/06/20 01/07/20 01/07/20 18:59 06:59 18:59 Intake Total 3240 750 Output Total 1125 245 Balance 2115 505 Weight 89.8 kg Intake: IV 3240 390 Magnesium Sulfate-D5w Pmx 200 1 gm In Dextrose/Water 1 100ml.bag @ 100 mls/hr IVPB Q1H TAMMY Rx#: [id number] Sodium Chloride 0.9% 1, 1040 390 000 ml @ 130 mls/hr IV . Q7H42M STA Rx#:[id number] Sodium Chloride 0.9% 1, 2000 000 ml @ 999 mls/hr IV . Q1H1M STA Rx#:[id number] Oral 360 Output: Urine 1125 245 Other: Voiding Method Indwelling Catheter Indwelling Catheter # Bowel Movements 2 1 - Labs CBC & Chem 7: 01/07/20 04:28 01/07/20 04:28 Labs: Abnormal Lab Results - Last 24 Hours (Table) 01/06/20 01/06/20 01/06/20 Range/Units 21:41 21:49 21:49 RBC 2.32 L (4.30-5.90) m/uL Hgb 9.2 L (13.0-17.5) gm/dL Hct 27.1 L (39.0-53.0) % MCV 116.9 H (80.0-100.0) fL MCH 39.9 H (25.0-35.0) pg RDW 17.4 H (11.5-15.5) % Plt Count 127 L (150-450) k/uL Macrocytosis Marked A VBG pCO2 31 L (37-51) mmHg VBG HCO3 17 L (24-28) mmol/L Sodium 136 L (137-145) mmol/L Chloride 109 H (98-107) mmol/L Carbon Dioxide 15 L (22-30) mmol/L BUN 22 H (9-20) mg/dL Creatinine 2.83 H (0.66-1.25) mg/dL Plasma Lactic Acid John (0.7-2.0) mmol/L Calcium (8.4-10.2) mg/dL Magnesium 1.5 L (1.6-2.3) mg/dL Alkaline Phosphatase 26 L (38-126) U/L Creatine Kinase 244 H (55-170) U/L CK-MB (CK-2) (0.0-2.4) ng/mL Troponin I (0.000-0.034) ng/mL Total Protein 5.2 L (6.3-8.2) g/dL Albumin 2.8 L (3.5-5.0) g/dL HDL Cholesterol (40-60) mg/dL Urine Blood (Negative) Urine RBC (0-5) /hpf Hyaline Casts (0-2) /lpf Urine Mucus (None) /hpf 01/06/20 01/06/20 01/06/20 Range/Units 21:49 21:49 23:55 RBC (4.30-5.90) m/uL Hgb (13.0-17.5) gm/dL Hct (39.0-53.0) % MCV (80.0-100.0) fL MCH (25.0-35.0) pg RDW (11.5-15.5) % Plt Count (150-450) k/uL Macrocytosis VBG pCO2 (37-51) mmHg VBG HCO3 (24-28) mmol/L Sodium (137-145) mmol/L Chloride (98-107) mmol/L Carbon Dioxide (22-30) mmol/L BUN (9-20) mg/dL Creatinine (0.66-1.25) mg/dL Plasma Lactic Acid John 7.2 H* (0.7-2.0) mmol/L Calcium (8.4-10.2) mg/dL Magnesium (1.6-2.3) mg/dL Alkaline Phosphatase (38-126) U/L Creatine Kinase (55-170) U/L CK-MB (CK-2) 6.1 H (0.0-2.4) ng/mL Troponin I 0.105 H* (0.000-0.034) ng/mL Total Protein (6.3-8.2) g/dL Albumin (3.5-5.0) g/dL HDL Cholesterol (40-60) mg/dL Urine Blood Moderate H (Negative) Urine RBC 12 H (0-5) /hpf Hyaline Casts 186 H (0-2) /lpf Urine Mucus Occasional H (None) /hpf 01/07/20 01/07/20 01/07/20 Range/Units 00:17 04:28 04:28 RBC 2.38 L (4.30-5.90) m/uL Hgb 9.5 L (13.0-17.5) gm/dL Hct 29.2 L (39.0-53.0) % MCV 122.8 H D (80.0-100.0) fL MCH 39.9 H (25.0-35.0) pg RDW 17.6 H (11.5-15.5) % Plt Count 79 L (150-450) k/uL Macrocytosis Marked A VBG pCO2 (37-51) mmHg VBG HCO3 (24-28) mmol/L Sodium (137-145) mmol/L Chloride 113 H (98-107) mmol/L Carbon Dioxide 20 L (22-30) mmol/L BUN 21 H (9-20) mg/dL Creatinine 2.33 H (0.66-1.25) mg/dL Plasma Lactic Acid John 3.3 H* (0.7-2.0) mmol/L Calcium 8.0 L (8.4-10.2) mg/dL Magnesium (1.6-2.3) mg/dL Alkaline Phosphatase 30 L (38-126) U/L Creatine Kinase (55-170) U/L CK-MB (CK-2) (0.0-2.4) ng/mL Troponin I (0.000-0.034) ng/mL Total Protein 5.5 L (6.3-8.2) g/dL Albumin 2.7 L (3.5-5.0) g/dL HDL Cholesterol 61 H (40-60) mg/dL Urine Blood (Negative) Urine RBC (0-5) /hpf Hyaline Casts (0-2) /lpf Urine Mucus (None) /hpf 01/07/20 Range/Units 04:28 RBC (4.30-5.90) m/uL Hgb (13.0-17.5) gm/dL Hct (39.0-53.0) % MCV (80.0-100.0) fL MCH (25.0-35.0) pg RDW (11.5-15.5) % Plt Count (150-450) k/uL Macrocytosis VBG pCO2 (37-51) mmHg VBG HCO3 (24-28) mmol/L Sodium (137-145) mmol/L Chloride (98-107) mmol/L Carbon Dioxide (22-30) mmol/L BUN (9-20) mg/dL Creatinine (0.66-1.25) mg/dL Plasma Lactic Acid John (0.7-2.0) mmol/L Calcium (8.4-10.2) mg/dL Magnesium (1.6-2.3) mg/dL Alkaline Phosphatase (38-126) U/L Creatine Kinase (55-170) U/L CK-MB (CK-2) (0.0-2.4) ng/mL Troponin I 0.093 H* (0.000-0.034) ng/mL Total Protein (6.3-8.2) g/dL Albumin (3.5-5.0) g/dL HDL Cholesterol (40-60) mg/dL Urine Blood (Negative) Urine RBC (0-5) /hpf Hyaline Casts (0-2) /lpf Urine Mucus (None) /hpf
[2020-01-07] MEDS: THIAMINE 100 MG/ML 2 ML VIAL IM SCH (11:37)
[2020-01-07] MEDS: PANTOPRAZOLE 40 MG/10 ML VIAL IV SCH (11:38)
--- NOTE | 2020-01-07 11:43 | P.CNPUL ---
History of Present Illness Consult date: 01/07/20 Chief complaint: Frequent falls and weakness History of present illness: This is a 69-year-old male patient with multiple medical problems and co morbidities. The patient is known to have coronary artery disease, previous bypass surgery, peripheral vascular disease, chronic diastolic heart failure and remote history of pulmonary embolism and is demented on long-term anticoagulation. The patient has had also previous history of CVA with gene ralized weakness more so in his lower extremities in addition to frequent falls. He is essentially poor historian. He reports that his ankylosis of the swelling in and same time the legs have been sore and weak and he hasn't been able to ambulate properly. He drinks alcohol on a daily basis and he takes 3 shots of Basil Yap every day, 3 times a day. The patient has had no focal neurological deficit. No seizure activity. No change in his speech. No episodes of syncope. No fever. No chills. No ascending paralysis. He came into the ED and his alcohol level was 35. He was found to be slightly dehydrated with some mild elevation of the renal function knowing that he has a chronic kidney disease. He also had some mild lactic acidosis. Overnight, the patient was monitored. He was given IV fluids. He has a white cell count of 7.2 from this morning with a hemoglobin of 9.5. I also notice a drop in his platelet count from 127 down to 79. His BUN is at 21 with a creatinine of 2.3 and is improved compared to yesterday 9 of yesterday creatinine was at 2.8. The serum bicarbonate of 15 with an anion gap of 12. Lactic acid level was at 7.2 is down to 1.9. He has have a troponin leak with troponin level of 0.1 and 0.09 respectively 2. Her BNP level was 2060. UA was negative. Salicylates, and Tylenol levels were also negative. CAT scan of the chest abdomen and pelvis was done emergency and it showed a 1 cm nodule disappears segment of the right lower lobe in the right paraspinal region. There was also some mild infiltration of disappears segment of the left lower lobe and some mild subsegmental infiltration of the lateral aspect of the right lower lobe. This was noted to be nonspecific and probably of an inflammatory nature. Ascending aorta is at 3.6 cm. There was a small hiatal hernia. Thoracic and lumbar spine were within normal limits. No intra-abdominal abnormalities. The computed tomography scan of the brain showed some old left occipital an inferior lateral temporal cortical infarct. Old thalamic lacunar infarct was also seen. The carotid Doppler was ordered which showed a 50-69% stenosis of left internal carotid artery. No significant stenosis involving the right carotid artery. Review of Systems Constitutional: Reports fatigue, Reports weakness Eyes: denies as per HPI, denies blurred vision, denies bulging eye, denies decreased vision, denies diplopia, denies discharge, denies dry eye, denies irritation, denies itching, denies pain, denies photophobia, denies loss of peripheral vision, denies loss of vision, denies tunnel vision/blind spots Ears: deny: decreased hearing, ear discharge, earache, tinnitus Ears, nose, mouth and throat: Reports as per HPI Breasts: absent: as per HPI, gynecomastia Cardiovascular: Reports as per HPI Respiratory: Reports as per HPI Gastrointestinal: Reports as per HPI Genitourinary: Reports as per HPI Musculoskeletal: Reports frequent falls, Reports gait dysfunction, Reports muscle weakness Musculoskeletal: bilateral: ankle pain, ankle swelling, absent: ankle stiffness Integumentary: Reports as per HPI Neurological: Reports weakness Psychiatric: Reports as per HPI Endocrine: Reports as per HPI, Reports fatigue Hematologic/Lymphatic: Reports as per HPI Allergic/Immunologic: Reports as per HPI Past Medical History Past Medical History: Coronary Artery Disease (CAD), Heart Failure, Hypertension, Myocardial Infarction ([place]), Pulmonary Embolus ([place]) Additional Past Medical History / Comment(s): Chronic kidney disease stage III, multiple falls, chronic anemia, coronary artery disease, previous bypass surgery, peripheral vascular disease, hypertension, previous history of pulmonary embolism Last Myocardial Infarction Date:: UNSURE History of Any Multi-Drug Resistant Organisms: None Reported Past Surgical History: Coronary Bypass/CABG, Heart Catheterization With Stent Past Anesthesia/Blood Transfusion Reactions: No Reported Reaction Date of Last Stent Placement:: UNSURE Past Psychological History: No Psychological Hx Reported Smoking Status: Current every day smoker Past Alcohol Use History: Daily Past Drug Use History: None Reported - Past Family History Mother History Unknown: Yes Medications and Allergies Home Medications Medication Instructions Recorded Confirmed Type Aspirin EC [Ecotrin Low Dose] 81 mg PO DAILY 09/04/19 01/07/20 History Apixaban [Eliquis] 5 mg PO BID 09/05/19 01/07/20 History Loratadine 10 mg PO DAILY 09/05/19 01/07/20 History Metoprolol Succinate (ER) [Toprol 1 tab PO DAILY 09/05/19 01/07/20 History XL] Montelukast [Singulair] 10 mg PO HS 09/05/19 01/07/20 History Simvastatin 40 mg PO HS 09/05/19 01/07/20 History Fluticasone Nasal [place] [Flonase 2 spray EA NOSTRIL DAILY spr 09/15/19 01/07/20 Rx Nasal [place]] lisinopriL [Zestril] 5 mg PO DAILY tab 09/15/19 01/07/20 Rx Cyanocobalamin (Vitamin B-12) 1,000 mcg PO DAILY 01/07/20 01/07/20 History [Vitamin B-12] Furosemide [Lasix] 40 mg PO BID@0900,1300 01/07/20 01/07/20 History Gabapentin [Neurontin] 300 mg PO TID PRN 01/07/20 01/07/20 History HYDROcodone/APAP 10-325MG [[place] 1 tab PO Q6H PRN 01/07/20 01/07/20 History 10-325] Omeprazole 20 mg PO DAILY 01/07/20 01/07/20 History Potassium Chloride ER [K-Dur 20] 20 meq PO DAILY 01/07/20 01/07/20 History Thiamine [Vitamin B-1] 100 mg PO BID 01/07/20 01/07/20 History metOLazone [Zaroxolyn] 5 mg PO DAILY@0830 01/07/20 01/07/20 History Allergies Allergy/AdvReac Type Severity Reaction Status Date / Time No Known Allergies Allergy Verified 09/05/19 14:22 Physical Exam Vitals: Vital Signs Temp Pulse Resp BP Pulse Ox 01/07/20 11:00 85 10 L 117/59 94 L 01/07/20 10:00 94/66 01/07/20 09:00 100 12 92/59 100 01/07/20 08:00 7 L 135/71 99 01/07/20 07:00 85 22 142/74 95 01/07/20 06:00 91 15 123/72 95 01/07/20 05:00 89 18 108/64 99 01/07/20 04:00 98.6 F 83 13 106/81 100 01/07/20 03:00 86 19 103/63 01/07/20 02:00 86 20 93/50 95 01/07/20 01:00 88 22 93/50 98 01/07/20 00:00 93 20 89/52 96 01/06/20 23:08 97.7 F 78 18 130/80 98 01/06/20 23:00 98.5 F 84 18 106/66 100 01/06/20 22:45 78 18 106/66 99 01/06/20 22:30 81 20 124/62 99 01/06/20 22:15 81 18 120/67 100 01/06/20 22:12 20 01/06/20 22:00 85 22 124/66 100 01/06/20 21:34 97.6 F 93 18 128/67 99 Intake and Output 01/06/20 01/07/20 01/07/20 22:59 06:59 14:59 Intake Total 3240 1140 Output Total 1125 345 Balance 2115 795 Intake: IV 3240 540 Magnesium Sulfate-D5w Pmx 200 1 gm In Dextrose/Water 1 100ml.bag @ 100 mls/hr IVPB Q1H TAMMY Rx#: [id number] Sodium Chloride 0.9% 1, 1040 540 000 ml @ 130 mls/hr IV . Q7H42M STA Rx#:[id number] Sodium Chloride 0.9% 1, 2000 000 ml @ 999 mls/hr IV . Q1H1M STA Rx#:[id number] Oral 600 Output: Urine 1125 345 Other: Voiding Method Indwelling Catheter Indwelling Catheter # Bowel Movements 2 1 Weight 84.368 kg 89.8 kg General: non toxic , no distress, appears older than stated age, disheveled Derm: warm, dry Head: atraumatic, normocephalic, symmetric Eyes: EOMI, no lid lag, anicteric sclera Mouth: no lip lesion, mucus membranes dry Cardiovascular: S1S2 reg, no murmur, positive posterior tibial pulse bilateral, Lungs: CTA bilateral, no rhonchi, no rales , no accessory muscle use Abdominal: soft, nontender to palpation, no guarding, no appreciable organomegaly Ext: no gross muscle atrophy, 3+edema b/l LE R>L, no contractures, and the patient has diminished muscle power and lower eczematous bilaterally in the motor power is around 3 out of grasp Neuro: CN II-XI grossly intact, + intention tremor, poor coordniation when trying to grrasp things. Motor weakness in lower extremities bilaterally along with diminished reflexes in lower extremities bilaterally. Motor function upper extremities improved and is better compared to lower extremities. Psych: Alert, oriented, appropriate affect Results - Laboratory Findings CBC and BMP: 01/07/20 04:28 01/07/20 04:28 PT/INR, D-dimer PT 9.7 sec (9.0-12.0) 01/06/20 21:54 INR 0.9 (<1.2) 01/06/20 21:54 Abnormal lab findings: Abnormal Labs 01/06/20 01/06/20 01/06/20 21:41 21:49 21:49 RBC 2.32 L Hgb 9.2 L Hct 27.1 L MCV 116.9 H MCH 39.9 H RDW 17.4 H Plt Count 127 L Macrocytosis Marked A VBG pCO2 31 L VBG HCO3 17 L Sodium 136 L Chloride 109 H Carbon Dioxide 15 L BUN 22 H Creatinine 2.83 H Plasma Lactic Acid John Calcium Magnesium 1.5 L Alkaline Phosphatase 26 L Creatine Kinase 244 H CK-MB (CK-2) Troponin I Total Protein 5.2 L Albumin 2.8 L HDL Cholesterol Urine Blood Urine RBC Hyaline Casts Urine Mucus 01/06/20 01/06/20 01/06/20 21:49 21:49 23:55 RBC Hgb Hct MCV MCH RDW Plt Count Macrocytosis VBG pCO2 VBG HCO3 Sodium Chloride Carbon Dioxide BUN Creatinine Plasma Lactic Acid John 7.2 H* Calcium Magnesium Alkaline Phosphatase Creatine Kinase CK-MB (CK-2) 6.1 H Troponin I 0.105 H* Total Protein Albumin HDL Cholesterol Urine Blood Moderate H Urine RBC 12 H Hyaline Casts 186 H Urine Mucus Occasional H 01/07/20 01/07/20 01/07/20 00:17 04:28 04:28 RBC 2.38 L Hgb 9.5 L Hct 29.2 L MCV 122.8 H D MCH 39.9 H RDW 17.6 H Plt Count 79 L Macrocytosis Marked A VBG pCO2 VBG HCO3 Sodium Chloride 113 H Carbon Dioxide 20 L BUN 21 H Creatinine 2.33 H Plasma Lactic Acid John 3.3 H* Calcium 8.0 L Magnesium Alkaline Phosphatase 30 L Creatine Kinase CK-MB (CK-2) Troponin I Total Protein 5.5 L Albumin 2.7 L HDL Cholesterol 61 H Urine Blood Urine RBC Hyaline Casts Urine Mucus 01/07/20 04:28 RBC Hgb Hct MCV MCH RDW Plt Count Macrocytosis VBG pCO2 VBG HCO3 Sodium Chloride Carbon Dioxide BUN Creatinine Plasma Lactic Acid John Calcium Magnesium Alkaline Phosphatase Creatine Kinase CK-MB (CK-2) Troponin I 0.093 H* Total Protein Albumin HDL Cholesterol Urine Blood Urine RBC Hyaline Casts Urine Mucus - Diagnostic Findings Chest x-ray: image reviewed CT scan - chest: image reviewed Assessment and Plan Plan: 1 motor weakness involving lower, is bilaterally, consider underlying neuropath y. Possibilities are many including the possibility of alcoholic neuropathy versus other possibilities. Consider vitamin E 12 deficiency. Consider other causes of motor weakness including spinal cord disease. Unlikely to be related to postinfectious inflammatory or inflammatory demyelinating neuropathy. 2 frequent falls secondary to above 3 coronary artery disease bypass surgery 4 Peripheral artery disease 5 chronic artery stenosis in the order of 50-69% involving left third artery 6 chronic anemia 7 chronic thrombocytopenia with interval drop in the platelet count down to 79 8 troponin leak 9 chronic kidney disease, stage III, with an acute worsening renal function probably related to intravascular volume depletion/dehydration 10 lactic acidosis, improved 11 alcoholism 12 history of CVA involving the left occipital and temporal in addition to right thalamic or carotid infarct 13 diastolic heart failure with increased lower extremity edema 14 remote history of pulmonary embolism Plan Neurology evaluation regarding lower extremity weakness Check B12 levels Thiamine and folate replacement Renal function is improving her lactic acid level is improved as the patient is receiving normal saline at rate of 75 mL's an hour Monitor the plated count and continue anticoagulants for now fall precautions Doppler of lower extremities We'll continue to follow
--- NOTE | 2020-01-07 12:14 | US ---
EXAMINATION TYPE: US venous doppler duplex LE DATE OF EXAM: 01/07/2020 10:36 AM COMPARISON: NONE CLINICAL HISTORY: Edema, stopped blood thinner. SIDE PERFORMED: Bilateral lower extremities TECHNIQUE: The lower extremity deep venous system is examined utilizing real time linear array sonog zain with graded compression, doppler sonography and color-flow sonography. VESSELS IMAGED: External Iliac Vein (EIV) Common Femoral Vein Deep Femoral Vein Greater Saphenous Vein * Femoral Vein Popliteal Vein Small Saphenous Vein * Proximal Calf Veins (* superficial vessels) Right Leg: There is intraluminal noncompressible thrombus within the right proximal and mid superfic ial femoral vein. Left Leg: There is normal flow, compressibility, and vascular waveforms. IMPRESSION: 1. Deep venous thrombosis of the right proximal and mid superficial femoral vein. 2. No DVT of the left lower extremity. A Red level critical message alert has been initiated for Mile Arteaga via the [employer] Results System on 01/07/2020 12:10 PM. This message alert has been sent to Mile Arteaga via [employer] preferences provided by the clinician for the receipt of Radiology Critical Findings. Message ID [id number].
[2020-01-07] MEDS ORDERED: APIXABAN 5 MG TAB PO STA (12:35)
--- NOTE | 2020-01-07 13:29 | ECHOF ---
Referral Reason:Thrombus MEASUREMENTS -------- HEIGHT: 180.3 cm WEIGHT: 89.4 kg BP: 123/72 RVIDd: 3.1 cm (< 3.3) IVSd: 1.3 cm (0.6 - 1.1) LVIDd: 3.1 cm (3.9 - 5.3) LVPWd: 1.5 cm (0.6 - 1.1) IVSs: 1.8 cm LVIDs: 1.8 cm LVPWs: 1.9 cm LAESV Index (A-L): 19.28 ml/m Ao Diam: 3.2 cm (2.0 - 3.7) AV Cusp: 1.8 cm (1.5 - 2.6) LA Diam: 3.9 cm (2.7 - 3.8) MV EXCURSION: 13.275 mm (> 18.000) MV EF SLOPE: 28 mm/s (70 - 150) EPSS: 0.3 cm MV E Dorian: 0.98 m/s MV DecT: 221 ms MV A Dorian: 1.11 m/s MV E/A Ratio: 0.89 AV maxP.40 mmHg AV meanP.85 mmHg RAP: 5.00 mmHg RVSP: 31.53 mmHg FINDINGS -------- Sinus rhythm. This was a technically difficult study with suboptimal views. The left ventricular size is normal. There is moderate concentric left ventricular hypertrophy. O verall left ventricular systolic function is normal with, an EF between 60 - 65 %. Lvot Obstruction . Normal LAP Grade 1 Diastolic Dysfunction with a max gradient of 26 mmHg The right ventricle is normal in size. Normal LA size by volume 22+/-6 ml/m2. The right atrial size is normal. Lumason used There is mild aortic valve sclerosis. Mild mitral regurgitation is present. The tricuspid valve appears structurally normal. Mild tricuspid regurgitation present. Right vent ricular systolic pressure is normal at < 35 mmHg. The pulmonic valve was not well visualized. There is no pulmonic regurgitation present. The aortic root size is normal. IVC Not well visulized. There is a small, generalized pericardial effusion present. CONCLUSIONS -------- 1. There is moderate concentric left ventricular hypertrophy. 2. Overall left ventricular systolic function is normal with, an EF between 60 - 65 %. 3. Lvot Obstruction with a max gradient of 26 mmHg 4. Normal LAP Grade 1 Diastolic Dysfunction. 5. Normal LA size by volume 22+/-6 ml/m2. 6. There is mild aortic valve sclerosis. 7. Mild mitral regurgitation is present. 8. Mild tricuspid regurgitation present. 9. There is a small, generalized pericardial effusion present. [employer] LEAD: Candida Velasquez RDCS
--- NOTE | 2020-01-07 16:11 | P.CNNES ---
History of Present Illness Consult date: 01/07/20 Requesting physician: Dante Howard Reason for Consult: AMS History of Present Illness: Patient is a 69-year-old male came to the hospital at 9:30 PM, last night on 11/06/2019 for altered mental status, and was diagnosed with significant dehydration with acute kidney injury on pre-existing CKD. Patient also has history of alcohol dependence chronic venous thromboembolism on anticoagulation with Apixaban 5 mg twice a day, hypertension and diastolic CHF CAD and vitamin B12 deficiency. Patient also has been having frequent falls, which prompted this neurology consultation. Patient states that in the past 2 days he fell 4 times. One time he was standing, looked to the right, then looked to the back and his legs gave out and he fell. Another time he fell, hitting the couch and then floor had to crawl to the desk to get to the phone. All of these falls occurs while standing, he never passes out. Patient states he has history of falls in the past. One time he fell 8 times in one month, which happened in summer of last year. Overall his falls have been occurring since last 1 year and states may have fell few other times as well. Computed tomography scan of head showed old left occipital and inferior left temporal cortical infarct. No acute intracranial abnormality. Old left thalamic lacunar infarct. CT of the cervical spine showed spondylotic changes in the lower cervical spine. CT of abdomen and pelvis showed mild bilateral pulmonary infiltrates probably related to inflammatory disease. Small right lower lobe nodule. EKG shows sinus rhythm with first-degree AV block. Carotid Doppler showed 50-69% stenosis of the left ICA. No hemodynamically significant stenosis of the right carotid artery. Antegrade flow in both vertebral arteries. Venous Doppler showed intraluminal noncompressible thrombus within the right proximal and mid superficial femoral vein, consistent with DVT. Patient's blood test shows WBC 7.2 hemoglobin 9.5 with elevated MCV 122.8. Platelets 79. Creatinine was 2.83, which was worse than baseline. LFTs are normal ammonia normal. CPK 244/170, troponin minimally elevated. Vitamin B12 was low 242 on 09/05/2019, 447 on 09/09/2019. Methylmalonic acid was elevated 0.54 on 09/09/2019, folate is also low 2.5. TSH normal. Apparently patient has been noncompliant with his medication, has stopped taking all his medication for the last 5 months before resuming it on 01/04/2020, 2 days prior to admission. Patient states that he was taking 21 pills a day and he got fed up and stopped taking all of them. Patient states that he has been drinking 3 shots of Basil Yap and whiskey per day since 1969. He does not do any more on the weekend. Denies any drug use. He did some debridement when in 70s. Review of Systems As above in detail as per HPI. All other 14 point review of systems unremarkable. Denies any significant neck pain. Denies any numbness or tingling. No tremors. Past Medical History Past Medical History: Coronary Artery Disease (CAD), Heart Failure, Hyper tension, Myocardial Infarction (IA), Pulmonary Embolus (PE) Additional Past Medical History / Comment(s): Chronic kidney disease stage III, multiple falls, chronic anemia, coronary artery disease, previous bypass surgery, peripheral vascular disease, hypertension, previous history of pulmonary embolism Last Myocardial Infarction Date:: UNSURE History of Any Multi-Drug Resistant Organisms: None Reported Past Surgical History: Coronary Bypass/CABG, Heart Catheterization With Stent Past Anesthesia/Blood Transfusion Reactions: No Reported Reaction Date of Last Stent Placement:: UNSURE Past Psychological History: No Psychological Hx Reported Smoking Status: Current every day smoker Past Alcohol Use History: Daily Past Drug Use History: None Reported - Past Family History Mother History Unknown: Yes Medications and Allergies Home Medications Medication Instructions Recorded Confirmed Type Aspirin EC [Ecotrin Low Dose] 81 mg PO DAILY 09/04/19 01/07/20 History Apixaban [Eliquis] 5 mg PO BID 09/05/19 01/07/20 History Loratadine 10 mg PO DAILY 09/05/19 01/07/20 History Metoprolol Succinate (ER) [Toprol 1 tab PO DAILY 09/05/19 01/07/20 History XL] Montelukast [Singulair] 10 mg PO HS 09/05/19 01/07/20 History Simvastatin 40 mg PO HS 09/05/19 01/07/20 History Fluticasone Nasal Hooper [Flonase 2 spray EA NOSTRIL DAILY spr 09/15/19 01/07/20 Rx Nasal Hooper] lisinopriL [Zestril] 5 mg PO DAILY tab 09/15/19 01/07/20 Rx Cyanocobalamin (Vitamin B-12) 1,000 mcg PO DAILY 01/07/20 01/07/20 History [Vitamin B-12] Furosemide [Lasix] 40 mg PO BID@0900,1300 01/07/20 01/07/20 History Gabapentin [Neurontin] 300 mg PO TID PRN 01/07/20 01/07/20 History HYDROcodone/APAP 10-325MG [Seward 1 tab PO Q6H PRN 01/07/20 01/07/20 History 10-325] Omeprazole 20 mg PO DAILY 01/07/20 01/07/20 History Potassium Chloride ER [K-Dur 20] 20 meq PO DAILY 01/07/20 01/07/20 History Thiamine [Vitamin B-1] 100 mg PO BID 01/07/20 01/07/20 History metOLazone [Zaroxolyn] 5 mg PO DAILY@0830 01/07/20 01/07/20 History Allergies Allergy/AdvReac Type Severity Reaction Status Date / Time No Known Allergies Allergy Verified 09/05/19 14:22 Physical Examination - Vital Signs Vital Signs: Vital Signs Temp Pulse Resp BP Pulse Ox 01/07/20 11:00 85 10 L 117/59 94 L 01/07/20 10:00 94/66 01/07/20 09:00 100 12 92/59 100 01/07/20 08:00 7 L 135/71 99 01/07/20 07:00 85 22 142/74 95 01/07/20 06:00 91 15 123/72 95 01/07/20 05:00 89 18 108/64 99 01/07/20 04:00 98.6 F 83 13 106/81 100 01/07/20 03:00 86 19 103/63 01/07/20 02:00 86 20 93/50 95 01/07/20 01:00 88 22 93/50 98 01/07/20 00:00 93 20 89/52 96 01/06/20 23:08 97.7 F 78 18 130/80 98 01/06/20 23:00 98.5 F 84 18 106/66 100 01/06/20 22:45 78 18 106/66 99 01/06/20 22:30 81 20 124/62 99 01/06/20 22:15 81 18 120/67 100 01/06/20 22:12 20 01/06/20 22:00 85 22 124/66 100 01/06/20 21:34 97.6 F 93 18 128/67 99 Intake and Output 01/06/20 01/07/20 01/07/20 22:59 06:59 14:59 Intake Total 3240 1140 Output Total 1125 345 Balance 2115 795 Intake: IV 3240 540 Magnesium Sulfate-D5w Pmx 200 1 gm In Dextrose/Water 1 100ml.bag @ 100 mls/hr IVPB Q1H TAMMY Rx#: [id number] Sodium Chloride 0.9% 1, 1040 540 000 ml @ 130 mls/hr IV . Q7H42M STA Rx#:[id number] Sodium Chloride 0.9% 1, 2000 000 ml @ 999 mls/hr IV . Q1H1M STA Rx#:[id number] Oral 600 Output: Urine 1125 345 Other: Voiding Method Indwelling Catheter Indwelling Catheter # Bowel Movements 2 1 Weight 84.368 kg 89.8 kg On examination patient is an elderly male, in no acute distress. Patient is alert awake oriented to time place and person speech and language functions are normal. Attention and concentration fund of knowledge is adequate. On cranial nerve examination pupils are round and reactive to light, visual landa are full on confrontation, extraocular muscles are intact with no nystagmus. Face is symmetric, tongue protrudes the midline. Palatal elevation and sensation normal. Hearing and shoulder shrug normal. On muscle strength testing there is no pronator drift and the strength is normal in arms and legs distally and proximally. Reflexes are 1+ at the biceps, 1 at brachioradialis, 1 at the knees, absent ankles and plantars are downgoing. No ataxia for [id number] testing. Tone and bulk of muscles is normal. No tremors at rest or with posture. Patient does have moderate peripheral edema, no obvious bruit S1 and S2 was audible. Chest is clear abdomen soft nontender. Gait was deferred. Results - Laboratory Findings CBC and BMP: 01/07/20 04:28 01/07/20 04:28 Abnormal Lab Findings: Abnormal Labs 01/06/20 01/06/20 01/06/20 21:41 21:49 21:49 RBC 2.32 L Hgb 9.2 L Hct 27.1 L MCV 116.9 H MCH 39.9 H RDW 17.4 H Plt Count 127 L Macrocytosis Marked A VBG pCO2 31 L VBG HCO3 17 L Sodium 136 L Chloride 109 H Carbon Dioxide 15 L BUN 22 H Creatinine 2.83 H Plasma Lactic Acid John Calcium Magnesium 1.5 L Alkaline Phosphatase 26 L Creatine Kinase 244 H CK-MB (CK-2) Troponin I Total Protein 5.2 L Albumin 2.8 L HDL Cholesterol Urine Blood Urine RBC Hyaline Casts Urine Mucus 01/06/20 01/06/20 01/06/20 21:49 21:49 23:55 RBC Hgb Hct MCV MCH RDW Plt Count Macrocytosis VBG pCO2 VBG HCO3 Sodium Chloride Carbon Dioxide BUN Creatinine Plasma Lactic Acid John 7.2 H* Calcium Magnesium Alkaline Phosphatase Creatine Kinase CK-MB (CK-2) 6.1 H Troponin I 0.105 H* Total Protein Albumin HDL Cholesterol Urine Blood Moderate H Urine RBC 12 H Hyaline Casts 186 H Urine Mucus Occasional H 01/07/20 01/07/20 01/07/20 00:17 04:28 04:28 RBC 2.38 L Hgb 9.5 L Hct 29.2 L MCV 122.8 H D MCH 39.9 H RDW 17.6 H Plt Count 79 L Macrocytosis Marked A VBG pCO2 VBG HCO3 Sodium Chloride 113 H Carbon Dioxide 20 L BUN 21 H Creatinine 2.33 H Plasma Lactic Acid John 3.3 H* Calcium 8.0 L Magnesium Alkaline Phosphatase 30 L Creatine Kinase CK-MB (CK-2) Troponin I Total Protein 5.5 L Albumin 2.7 L HDL Cholesterol 61 H Urine Blood Urine RBC Hyaline Casts Urine Mucus 01/07/20 04:28 RBC Hgb Hct MCV MCH RDW Plt Count Macrocytosis VBG pCO2 VBG HCO3 Sodium Chloride Carbon Dioxide BUN Creatinine Plasma Lactic Acid John Calcium Magnesium Alkaline Phosphatase Creatine Kinase CK-MB (CK-2) Troponin I 0.093 H* Total Protein Albumin HDL Cholesterol Urine Blood Urine RBC Hyaline Casts Urine Mucus Assessment and Plan Assessment: * Altered mental status, likely due to metabolic encephalopathy. Patient's anemia, worsening renal functions, and other vitamin deficiencies are the lik erlin cause. * Frequent falls, likely due to gait imbalance related to B12 and folate deficiency and probable related to chronic alcoholism. * Acute DVT right lower extremity. * Vitamin B12 deficiency * Folate deficiency * Moderate left ICA stenosis 50-69%. * History of alcoholism. * Medication noncompliance. Plan: * Patient's altered mental status has significantly improved. Treatment of various medical conditions as per IM/critical care. * For frequent falls, patient will be started on B12, folate replacement. He was counseled about abstinence from alcohol. May need short-term physical therapy. * B12 1000 g IM daily for 5 days * Folic acid 1 mg daily. * We will check B6, RPR and hemoglobin A1c. * 4 moderate left ICA stenosis, patient will be continued on aspirin and Lipitor 20 mg.
[2020-01-07] MEDS: CYANOCOBALAMIN 1,000 MCG/ML 1 ML VIAL IM SCH (16:59)
[2020-01-07] MEDS: FOLIC ACID 1 MG TAB PO SCH (16:59)
[2020-01-07] MEDS: APIXABAN 5 MG TAB PO SCH (21:05)
[2020-01-07] MEDS: METOPROLOL TARTRATE 25 MG TAB PO SCH (21:06)
[2020-01-07] MEDS: ATORVASTATIN 20 MG TAB PO SCH (21:06)
[2020-01-07] MEDS: ASPIRIN 81 MG PO SCH (21:06)
[2020-01-08] MEDS: SODIUM CHLORIDE 0.9% 1,000 ML IV SCH (00:23)
[2020-01-08 06:18] LABS: Anisocytosis Slight; HCT 24.3 % (39.0-53.0); MCH 40.5 pg (25.0-35.0); MCHC 33.2 g/dL (31.0-37.0); MCV 122.2 fL (80.0-100.0); Macrocytosis Marked; Mean Platelet Volume 8.2; RBC 1.99 m/uL (4.30-5.90); RDW 17.3 % (11.5-15.5); WBC 6.8 k/uL (3.8-10.6)
[2020-01-08] MEDS: THIAMINE 100 MG TAB PO SCH ×2 (06:25→20:18)
[2020-01-08 06:30] LABS: ALT 8 U/L (4-49); AST 21 U/L (17-59); African American GFR (CKD) 48 (>60 ml/min/1.73 sqM); Albumin 2.2 g/dL (3.5-5.0); Alkaline Phosphatase 26 U/L (38-126); Anion Gap 0 mmol/L; Blood Urea Nitrogen 18 mg/dL (9-20); Calcium 7.4 mg/dL (8.4-10.2); Carbon Dioxide 22 mmol/L (22-30); Chloride 113 mmol/L (98-107); Glucose 93 mg/dL (74-99); Magnesium 1.7 mg/dL (1.6-2.3); Non-African American GFR(CKD) 42 (>60 ml/min/1.73 sqM); Potassium 3.6 mmol/L (3.5-5.1); Sodium 135 mmol/L (137-145); Total Bilirubin 1.1 mg/dL (0.2-1.3); Total Protein 4.6 g/dL (6.3-8.2)
[2020-01-08 06:46] LABS: Platelet Count 98 k/uL (150-450)
[2020-01-08] MEDS: PANTOPRAZOLE 40 MG/10 ML VIAL IV SCH (09:20)
[2020-01-08] MEDS: APIXABAN 5 MG TAB PO SCH ×2 (09:21→20:18)
[2020-01-08] MEDS: FOLIC ACID 1 MG TAB PO SCH (09:21)
[2020-01-08] MEDS: METOPROLOL TARTRATE 25 MG TAB PO SCH ×2 (09:21→20:18)
[2020-01-08] MEDS: LORazepam 2 MG/ML INJ IV PRN ×7 (09:50→22:49)
--- NOTE | 2020-01-08 10:55 | XR ---
EXAMINATION TYPE: XR chest 1V portable DATE OF EXAM: 01/08/2020 CLINICAL HISTORY: Shortness of breath TECHNIQUE: Portable upright view of the chest obtained COMPARISON: 01/06/2020 chest radiograph FINDINGS: Sternotomy wires. There are increased interstitial markings versus 01/06/2020 comparison. N o focal airspace opacity, pleural effusion, or pneumothorax. The cardiomediastinal silhouette is with in normal limits for size. IMPRESSION: Mildly increased interstitial markings versus 01/06/2020 comparison. Findings may represen t interstitial process such as pulmonary edema or pneumonitis. No pulmonary vascular congestion.
--- NOTE | 2020-01-08 11:52 | P.PN ---
Subjective Progress Note Date: 01/08/20 Principal diagnosis: Frequent falls and weakness of the lower extremities This is a 69-year-old male patient with multiple medical problems and comorbidities. The patient is known to have coronary artery disease, previous bypass surgery, peripheral vascular disease, chronic diastolic heart failure and remote history of pulmonary embolism and is demented on long-term anticoagu lation. The patient has had also previous history of CVA with generalized weakness more so in his lower extremities in addition to frequent falls. He is essentially poor historian. He reports that his ankylosis of the swelling in and same time the legs have been sore and weak and he hasn't been able to ambulate properly. He drinks alcohol on a daily basis and he takes 3 shots of Basil Yap every day, 3 times a day. The patient has had no focal neurological deficit. No seizure activity. No change in his speech. No episodes of syncope. No fever. No chills. No ascending paralysis. He came into the ED and his alcohol level was 35. He was found to be slightly dehydrated with some mild elevation of the renal function knowing that he has a chronic kidney disease. He also had some mild lactic acidosis. Overnight, the patient was monitored. He was given IV fluids. He has a white cell count of 7.2 from this morning with a hemoglobin of 9.5. I also notice a drop in his platelet count from 127 down to 79. His BUN is at 21 with a creatinine of 2.3 and is improved compared to yesterday 9 of yesterday creatinine was at 2.8. The serum bicarbonate of 15 with an anion gap of 12. Lactic acid level was at 7.2 is down to 1.9. He has have a troponin leak with troponin level of 0.1 and 0.09 respectively 2. Her BNP level was 2060. UA was negative. Salicylates, and Tylenol levels were also negative. CAT scan of the chest abdomen and pelvis was done emergency and it showed a 1 cm nodule disappears segment of the right lower lobe in the right paraspinal region. There was also some mild infiltration of disappears segment of the left lower lobe and some mild subsegmental infiltration of the lateral aspect of the right lower lobe. This was noted to be nonspecific and probably of an inflammatory nature. Ascending aorta is at 3.6 cm. There was a small hiatal hernia. Thoracic and lumbar spine were within normal limits. No intra-abdominal abnormalities. The computed tomography scan of the brain showed some old left occipital an inferior lateral temporal cortical infarct. Old thalamic lacunar infarct was also seen. The carotid Doppler was ordered which showed a 50-69% stenosis of left internal carotid artery. No significant stenosis involving the right carotid artery. Patient is seen today January [id number] in the selective care unit. He is currently resting comfortably in bed. Awake and alert in no acute distress. He is still having ongoing issues with weakness of his lower extremities. Difficult raising his legs off the bed. Still with some bilateral swelling of her lower extremities. Venous Doppler of the lower extremities revealed intralum inal are noncompressible thrombus within the right proximal and mid superficial femoral vein. Normal flow of the left leg. The patient does admit to having stopped all of his home medication for approximately 2 weeks because he was "sick of taking so many medications". He was to be on Eliquis 2.5 mg twice a day. White count 6.8. Hemoglobin 8.0. MCV 122. Platelets 98,000. Sodium 135. Potassium 3.6. Chloride 113. Bicarb 22. Creatinine 1.65. He is currently maintaining good O2 saturations in the mid 90s on 2 L/m per nasal cannula. He's been afebrile. Hemodynamically stable. He has resumed on Eliquis currently at 10 mg twice a day. Aspirin. [facility] protocol is in place. Objective - Vital Signs Vital signs: Vital Signs Temp 98.4 F 01/08/20 08:00 Pulse 85 01/08/20 08:00 Resp 22 01/08/20 08:00 BP 118/56 01/08/20 08:00 Pulse Ox 94 L 01/08/20 08:00 Intake & Output 01/07/20 01/08/20 01/08/20 18:59 06:59 18:59 Intake Total 2265 540 120 Output Total 875 366 Balance 1390 174 120 Weight 94.5 kg Intake: IV 1065 300 Sodium Chloride 0.9% 1, 1065 300 000 ml @ 130 mls/hr IV . Q7H42M STA Rx#:[id number] Oral 1200 240 120 Output: Urine 875 366 Other: Voiding Method Indwelling Catheter Indwelling Catheter # Voids 1 # Bowel Movements 1 1 1 - Exam General: This is a very pleasant 69-year-old gentleman, on 2 L nasal cannula, non toxic , no distress, appears older than stated age, disheveled Derm: warm, dry Head: atraumatic, normocephalic, symmetric Eyes: EOMI, no lid lag, anicteric sclera Mouth: no lip lesion, mucus membranes dry Cardiovascular: S1S2 reg, no murmur, positive posterior tibial pulse bilateral, Lungs: CTA bilateral, no rhonchi, no rales , no accessory muscle use Abdominal: soft, nontender to palpation, no guarding, no appreciable organomegaly Ext: no gross muscle atrophy, 3+edema b/l LE R>L, no contractures, and the patient has diminished muscle power and lower eczematous bilaterally in the motor power is around 3 out of grasp Neuro: CN II-XI grossly intact, + intention tremor, poor coordniation when trying to grrasp things. Motor weakness in lower extremities bilaterally along with diminished reflexes in lower extremities bilaterally. Motor function upper extremities improved and is better compared to lower extremities. Psych: Alert, oriented, appropriate affect - Labs CBC & Chem 7: 01/08/20 05:42 01/08/20 05:42 Labs: Abnormal Lab Results - Last 24 Hours (Table) 01/08/20 01/08/20 Range/Units 05:42 05:42 RBC 1.99 L (4.30-5.90) m/uL Hgb 8.0 L D (13.0-17.5) gm/dL Hct 24.3 L (39.0-53.0) % MCV 122.2 H (80.0-100.0) fL MCH 40.5 H (25.0-35.0) pg RDW 17.3 H (11.5-15.5) % Plt Count 98 L (150-450) k/uL Macrocytosis Marked A Sodium 135 L (137-145) mmol/L Chloride 113 H (98-107) mmol/L Creatinine 1.65 H (0.66-1.25) mg/dL Calcium 7.4 L (8.4-10.2) mg/dL Alkaline Phosphatase 26 L (38-126) U/L Total Protein 4.6 L (6.3-8.2) g/dL Albumin 2.2 L (3.5-5.0) g/dL Assessment and Plan Assessment: 1 motor weakness involving lower, is bilaterally, consider underlying neuropathy. Possibilities are many including the possibility of alcoholic neuropathy versus other possibilities. Consider vitamin E 12 deficiency. Consider other causes of motor weakness including spinal cord disease. Unlikely to be related to postinfectious inflammatory or inflammatory demyelinating neuropathy. 2 frequent falls secondary to above 3 Right lower extremity DVT, patient admits to being off his medications for 2 weeks at home prior, had been off Eliquis 4 coronary artery disease bypass surgery 5 Peripheral artery disease 6 chronic artery stenosis in the order of 50-69% involving left third artery 7 chronic thrombocytopenia with interval drop in the platelet count down to 79 8 troponin leak 9 chronic kidney disease, stage III, with an acute worsening renal function probably related to intravascular volume depletion/dehydration 10 lactic acidosis, improved 11 alcoholism, CIWA protocol in place 12 history of CVA involving the left occipital and temporal in addition to right thalamic or carotid infarct 13 diastolic heart failure with increased lower extremity edema 14 remote history of pulmonary embolism, was to be on Eliquis 2.5 mg twice a day in the outpatient setting 15 chronic anemia Plan The patient was seen and evaluated by Dr. Dale Positive DVT of the right lower extremity Eliquis resumed at 10 mg twice a day Admits to medication noncompliance for greater than 2 weeks Neurology consult in place We'll continue to follow
--- NOTE | 2020-01-08 12:18 | P.PN ---
Subjective Progress Note Date: 01/08/20 (delayed charting seen at 0930) Principal diagnosis: weakness Patient is a 69-year-old male with diastolic congestive heart failure, pulmonary embolism, hypertension, coronary artery disease, tobacco abuse, and ongoing alcohol use who presented to the ER due to frequent falls. In the ER he underwent an extensive evaluation. His vital signs were within normal limits on admission. Laboratory analysis showed hemoglobin 9.2, hematocrit 27.1, platelet count 127, VBG showed a normal pH of 7.34, carbon dioxide 15, BUN 22, creatinine 2.83, lactic acid 7.2, magnesium 1.5, and troponin 0.105, BNP mildly elevated at 2060. Chest x-ray showed no acute process but did show chronic changes. Pelvic x-rays showed no acute process. 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 He underwent a CT abdomen and pelvis which showed mild bilateral pulmonary infiltrates probably related inflammatory disease with a small right lower lobe nodule. He was admitted for acute renal failure with generalized weakness. He was started on IV fluids and his diuretics were held. Patient was admitted to the ICU secondary to his lactic acidosis. His lactic acid normalized to less than 2 by the morning of 01/06. He underwent a renal ultrasound which showed no evidence of hydronephrosis. He was seen by urology who felt that he should stay off of diuretics and continue IV fluids bilateral lesser rate. He was seen by cardiology for his positive troponin, troponin was repeated and was down trending. It was felt that his troponin elevation was likely secondary to acute renal failure. He was seen by neurology who felt gait instability likely due to B12 def and thiamine deficiency. CXR increased interstitial markings. Echo with EF 60- 65%, grade 1 diastolic dysfunction. Of note patient states he restarted all of his medications after not taking them for quite some time on 01/04/2020. Patient seen and examined at bedside. He continues to feel weak, + shaky, + anxious, + increased SOB, no nausea, no diarrhea General: non toxic , no distress, appears older than stated age, disheveled Derm: warm, dry Head: atraumatic, normocephalic, symmetric Eyes: EOMI, no lid lag, anicteric sclera Mouth: no lip lesion, mucus membranes dry Cardiovascular: S1S2 reg, no murmur, positive posterior tibial pulse bilateral, Lungs: Ronchi right side, no accessory muscle use Abdominal: soft, nontender to palpation, no guarding, no appreciable organomegaly Ext: no gross muscle atrophy, 3+ edema b/l LE R>L, no contractures Neuro: CN II-XI grossly intact, + tremor, poor coordniation when trying to grrasp things. Psych: Alert, oriented, appropriate affect Acute kidney injury on chronic kidney disease stage III -Nephrology recommendations appreciated -Renal ultrasound without significant hydronephrosis -Continue off of Zaroxolyn and Lasix -stop IV fluids -Avoid additional nephrotoxic -Repeat renal function in a.m. - consider d/c kovacs if nephro in agreement Multiple falls, Weakness with poor propriception - B12 fec, folate, deficiency - neuro recs appreciated - Thiamin IM, consider BID dosing - B 12 level pending - PT/OT - Fall precautions Right lower extremity acute DVT - Eliquis 10 BID Anemia -Worsening likely due to IVF - Repeat at 1200 -Follow CBC - B12 and folate supplementation Thrombocytopenia -Suspect reactive -Repeat CBC in a.m. Elevated troponin likely secondary to acute renal failure on chronic kidney disease -Downtrending -Cardiology recommendations -Continue with aspirin Alcohol abuse with potential for delirium tremens -Continue with CIWA protocol -Folic acid supplementation -Thiamine to IM 5 days Carotid artery disease - Left with 50-69% stenosis - outpatient vascular follow-up - ASA and statin HTN - resume metoprolol - follow BP close was hypotensive on admission Compensated diastolic CHF Lacitc acidosis, resolved Hypomagnesemia, resolved DVT prophylaxis: eliquis Discussed with: patient, nursing Anticipated discharge: in 1-[address]: SNF A total of 35 minutes was spent on the care of this complex patient more than 50% of the time was spent in counseling and care coordination. Objective - Vital Signs Vital signs: Vital Signs Temp 98.4 F 01/08/20 08:00 Pulse 85 01/08/20 08:00 Resp 22 01/08/20 08:00 BP 118/56 01/08/20 08:00 Pulse Ox 94 L 01/08/20 08:00 Intake & Output 01/07/20 01/08/20 01/08/20 18:59 06:59 18:59 Intake Total 2265 540 120 Output Total 875 366 Balance 1390 174 120 Weight 94.5 kg Intake: IV 1065 300 Sodium Chloride 0.9% 1, 1065 300 000 ml @ 130 mls/hr IV . Q7H42M STA Rx#:[id number] Oral 1200 240 120 Output: Urine 875 366 Other: Voiding Method Indwelling Catheter Indwelling Catheter # Voids 1 # Bowel Movements 1 1 1 - Labs CBC & Chem 7: 01/08/20 05:42 01/08/20 05:42 Labs: Abnormal Lab Results - Last 24 Hours (Table) 01/08/20 01/08/20 Range/Units 05:42 05:42 RBC 1.99 L (4.30-5.90) m/uL Hgb 8.0 L D (13.0-17.5) gm/dL Hct 24.3 L (39.0-53.0) % MCV 122.2 H (80.0-100.0) fL MCH 40.5 H (25.0-35.0) pg RDW 17.3 H (11.5-15.5) % Plt Count 98 L (150-450) k/uL Macrocytosis Marked A Sodium 135 L (137-145) mmol/L Chloride 113 H (98-107) mmol/L Creatinine 1.65 H (0.66-1.25) mg/dL Calcium 7.4 L (8.4-10.2) mg/dL Alkaline Phosphatase 26 L (38-126) U/L Total Protein 4.6 L (6.3-8.2) g/dL Albumin 2.2 L (3.5-5.0) g/dL
--- NOTE | 2020-01-08 12:21 | P.PN ---
Subjective Progress Note Date: 01/08/20 CHIEF COMPLAINT: Elevated troponins HISTORY OF PRESENT ILLNESS: Patient examined this morning at the bedside. Patient reports he is having pain all over. He mainly complains of his back and his legs hurting. He reports some mild left-sided chest pain. Pain is worse with palpation of the chest wall. Echocardiogram completed yesterday reveals EF between 60 and 65%, mild mitral regurgitation, and mild tricuspid regurgitation. There is a small generalized pericardial effusion present. Vital signs stable. Blood pressure 118/56. Heart rate 60-80. Troponin 0.105. 0.093. Creatinine improved to 1.65 today down from 2.33 yesterday. PHYSICAL EXAM: VITAL SIGNS: Reviewed. GENERAL: Well-developed in no acute distress. NECK: Supple. No JVD or thyromegaly LUNGS: Respirations even and unlabored. Lungs essentially clear to auscultation bilaterally. HEART: Regular rate and rhythm. S1 and S2 heard. EXTREMITIES: Normal range of motion. No clubbing or cyanosis. Peripheral pulses intact. 2+ lower extremity edema ASSESSMENT: 1. Elevated troponin 2. 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 Chronic diastolic congestive heart failure 4. History of DVT 5. Alcohol abuse 6. Right lower extremity DVT PLAN: -Continue current cardiac medications -Patient resumed on Eliquis per pulmonary for right lower extremity DVT -No further cardiac intervention recommended at this time Nurse practitioner note has been reviewed by physician. Signing provider agrees with the documented findings, assessment, and plan of care. Objective - Vital Signs Vital signs: Vital Signs Temp 98.4 F 01/08/20 08:00 Pulse 85 01/08/20 08:00 Resp 22 01/08/20 08:00 BP 118/56 01/08/20 08:00 Pulse Ox 94 L 01/08/20 08:00 Intake & Output 01/07/20 01/08/20 01/08/20 18:59 06:59 18:59 Intake Total 2265 540 Output Total 875 366 Balance 1390 174 Weight 94.5 kg Intake: IV 1065 300 Sodium Chloride 0.9% 1, 1065 300 000 ml @ 130 mls/hr IV . Q7H42M STA Rx#:[id number] Oral 1200 240 Output: Urine 875 366 Other: Voiding Method Indwelling Catheter Indwelling Catheter # Bowel Movements 1 1 - Labs CBC & Chem 7: 01/08/20 05:42 01/08/20 05:42 Labs: Abnormal Lab Results - Last 24 Hours (Table) 01/08/20 01/08/20 Range/Units 05:42 05:42 RBC 1.99 L (4.30-5.90) m/uL Hgb 8.0 L D (13.0-17.5) gm/dL Hct 24.3 L (39.0-53.0) % MCV 122.2 H (80.0-100.0) fL MCH 40.5 H (25.0-35.0) pg RDW 17.3 H (11.5-15.5) % Plt Count 98 L (150-450) k/uL Macrocytosis Marked A Sodium 135 L (137-145) mmol/L Chloride 113 H (98-107) mmol/L Creatinine 1.65 H (0.66-1.25) mg/dL Calcium 7.4 L (8.4-10.2) mg/dL Alkaline Phosphatase 26 L (38-126) U/L Total Protein 4.6 L (6.3-8.2) g/dL Albumin 2.2 L (3.5-5.0) g/dL
[2020-01-08 12:45] LABS: Anisocytosis Slight; HCT 26.2 % (39.0-53.0); HGB 8.7 gm/dL (13.0-17.5); MCH 40.2 pg (25.0-35.0); MCHC 33.4 g/dL (31.0-37.0); Macrocytosis Marked; Mean Platelet Volume 8.4; Platelet Count 121 k/uL (150-450); RBC 2.18 m/uL (4.30-5.90); WBC 8.5 k/uL (3.8-10.6)
[2020-01-08 12:58] LABS: MCV 120.1 fL (80.0-100.0)
[2020-01-08] MEDS: TAMSULOSIN 0.4 MG CAP.ER.24H PO SCH (13:00)
[2020-01-08] MEDS: THIAMINE 100 MG/ML 2 ML VIAL IM SCH (13:01)
[2020-01-08] MEDS: CYANOCOBALAMIN 1,000 MCG/ML 1 ML VIAL IM SCH (13:02)
[2020-01-08 13:46] LABS: Vitamin B12 >4000.0 pg/mL (211-911)
[2020-01-08] MEDS ORDERED: POTASSIUM CHLORIDE ER 20 MEQ TAB.ER PO STA (14:46)
--- NOTE | 2020-01-08 14:47 | P.PN ---
Subjective Patient seen in follow-up for acute kidney injury. Renal function improving. Still complains of dyspnea but not worse compared to yesterday. Currently on 2 L nasal cannula. Oral intake fair. Urine output fair. Vital signs are stable. General: The patient appeared well nourished and normally developed. HEENT: Head exam is unremarkable. Neck is without jugular venous distension. LUNGS: Breath sounds decreased. Scattered rhonchi. HEART: Rate and Rhythm are regular. ABDOMEN: Soft, nontender. EXTREMITITES: No clubbing, cyanosis, or edema. Objective - Vital Signs Vital signs: Vital Signs Temp 98.3 F 01/08/20 12:54 Pulse 84 01/08/20 12:54 Resp 22 01/08/20 12:54 BP 124/60 01/08/20 12:54 Pulse Ox 93 L 01/08/20 12:54 Intake & Output 01/07/20 01/08/20 01/08/20 18:59 06:59 18:59 Intake Total 2265 540 240 Output Total 875 366 Balance 1390 174 240 Weight 94.5 kg Intake: IV 1065 300 Sodium Chloride 0.9% 1, 1065 300 000 ml @ 130 mls/hr IV . Q7H42M STA Rx#:[id number] Oral 1200 240 240 Output: Urine 875 366 Other: Voiding Method Indwelling Catheter Indwelling Catheter # Voids 1 # Bowel Movements 1 1 1 - Labs CBC & Chem 7: 01/08/20 12:17 01/08/20 05:42 Labs: Abnormal Lab Results - Last 24 Hours (Table) 01/08/20 01/08/20 01/08/20 Range/Units 05:42 05:42 12:17 RBC 1.99 L 2.18 L (4.30-5.90) m/uL Hgb 8.0 L D 8.7 L (13.0-17.5) gm/dL Hct 24.3 L 26.2 L (39.0-53.0) % MCV 122.2 H 120.1 H (80.0-100.0) fL MCH 40.5 H 40.2 H (25.0-35.0) pg RDW 17.3 H 17.0 H (11.5-15.5) % Plt Count 98 L 121 L (150-450) k/uL Macrocytosis Marked A Marked A Sodium 135 L (137-145) mmol/L Chloride 113 H (98-107) mmol/L Creatinine 1.65 H (0.66-1.25) mg/dL Calcium 7.4 L (8.4-10.2) mg/dL Alkaline Phosphatase 26 L (38-126) U/L Total Protein 4.6 L (6.3-8.2) g/dL Albumin 2.2 L (3.5-5.0) g/dL Vitamin B12 >4000.0 H (211-911) pg/mL Assessment and Plan Plan: Assessment: 1. Acute kidney injury mostly prerenal secondary to hypotension and diuretics. Creatinine 2.83 on admission and is 1.65 today. Creatinine was as low as 1.18 as of 09/15/2019. No proteinuria. Renal ultrasound revealed no hydronephrosis. 2. Metabolic acidosis secondary to acute kidney injury and lactic acidosis. Improving. 3. Hypomagnesemia secondary to diuresis. Status post placement. 4. Hypokalemia secondary to diuresis. Status post replacement. 5. Chronic diastolic CHF. 6. Anemia. Rule out iron deficiency. Plan: Hep-Lock IV fluids. Can resume Lasix 40 mg orally once daily starting tomorrow. Continue to monitor renal function and urine output. Replace potassium. 20 mg once today. Check iron studies.
--- NOTE | 2020-01-08 15:38 | P.PN ---
Subjective Progress Note Date: 01/08/20 Patient is laying comfortably in the bed. Her undergoing speech therapy evaluation. Patient offers no new complaints. Clinically and change. Objective - Vital Signs Vital signs: Vital Signs Temp 98.2 F 01/08/20 15:26 Pulse 93 01/08/20 15:26 Resp 40 H 01/08/20 15:26 BP 152/68 01/08/20 15:26 Pulse Ox 88 L 01/08/20 15:26 Intake & Output 01/07/20 01/08/20 01/08/20 18:59 06:59 18:59 Intake Total 2265 540 240 Output Total 875 366 Balance 1390 174 240 Weight 94.5 kg Intake: IV 1065 300 Sodium Chloride 0.9% 1, 1065 300 000 ml @ 130 mls/hr IV . Q7H42M STA Rx#:[id number] Oral 1200 240 240 Output: Urine 875 366 Other: Voiding Method Indwelling Catheter Indwelling Catheter # Voids 1 # Bowel Movements 1 1 1 - Exam Unchanged. Patient appears slightly more confused. - Labs CBC & Chem 7: 01/08/20 12:17 01/08/20 05:42 Labs: Abnormal Lab Results - Last 24 Hours (Table) 01/08/20 01/08/20 01/08/20 Range/Units 05:42 05:42 12:17 RBC 1.99 L 2.18 L (4.30-5.90) m/uL Hgb 8.0 L D 8.7 L (13.0-17.5) gm/dL Hct 24.3 L 26.2 L (39.0-53.0) % MCV 122.2 H 120.1 H (80.0-100.0) fL MCH 40.5 H 40.2 H (25.0-35.0) pg RDW 17.3 H 17.0 H (11.5-15.5) % Plt Count 98 L 121 L (150-450) k/uL Macrocytosis Marked A Marked A Sodium 135 L (137-145) mmol/L Chloride 113 H (98-107) mmol/L Creatinine 1.65 H (0.66-1.25) mg/dL Calcium 7.4 L (8.4-10.2) mg/dL Alkaline Phosphatase 26 L (38-126) U/L Total Protein 4.6 L (6.3-8.2) g/dL Albumin 2.2 L (3.5-5.0) g/dL Vitamin B12 >4000.0 H (211-911) pg/mL Assessment and Plan Assessment: * Altered mental status, likely due to metabolic encephalopathy. Patient's anemia, worsening renal functions, and other vitamin deficiencies are the likely cause. Rule out alcohol withdrawal syndrome. * Frequent falls, likely due to gait imbalance related to B12 and folate deficiency and probable related to chronic alcoholism. * Acute DVT right lower extremity. * Vitamin B12 deficiency * Folate deficiency * Moderate left ICA stenosis 50-69%. * History of alcoholism. * Medication noncompliance. Plan: * Patient continues to have altered mental status. Need to watch for alcohol withdrawal syndrome. Treatment of various medical conditions as per IM/critical care. * For frequent falls, patient will be started on B12, folate replacement. He was counseled about abstinence from alcohol. May need short-term physical therapy. * Patient has received B12 1000 g IM. Current level is > 4000. We will switch to oral B12. * Folic acid 1 mg daily. * B6, RPR and hemoglobin A1c still pending. * For moderate left ICA stenosis, patient will be continued on aspirin and Lipitor 20 mg.
[2020-01-08] MEDS ORDERED: HALOPERIDOL LACTATE 5 MG/ML 1 ML VIAL IM PRN (16:09)
[2020-01-08] MEDS ORDERED: DIAZEPAM 5 MG/ML 2 ML INJ IM ONE (18:16)
--- NOTE | 2020-01-08 18:53 | P.MHFACE ---
Face to Face Restrain/Seclus - Evaluation Patient's Immediate Situation: Endangers others' safety, Endangers staff safety, Violent behavior (Attempting to kick and hit staff, not redirectable ) Patient's Reaction to the Intervention: Cooperative, Suspicious Patient's Medical & Behavioral Condition: Awake, Follows directions, Confused, Paranoid, Auditory hallucinations, Visual hallucinations, Flight of ideas Need to Continue or Terminate Restraint or Seclusion: Continue Need to Continue or Terminate Restraint/Seclusion - Comment: Need for restraints due to severe ETOH withdrawal and confusion. Patient not responding to pharmacologic treatment and redirection.
[2020-01-08] MEDS: ATORVASTATIN 20 MG TAB PO SCH (20:18)
[2020-01-08] MEDS: ASPIRIN 81 MG PO SCH (20:18)
[2020-01-08 21:41] LABS: Appearance,Urine Clear (Clear); Bilirubin,Urine Negative (Negative); Blood,Urine Large (Negative); Color,Urine Yellow; Glucose,Urine (UA) Negative (Negative); Hyaline Casts,Urine 1 /lpf (0-2); Ketones,Urine Negative (Negative); Leukocyte Esterase,Urine Moderate (Negative); Mucus,Urine Rare /hpf; Nitrite,Urine Negative (Negative); PH, Urine 5.5 (5.0-8.0); Protein,Urine Trace (Negative); RBC,Urine 131 /hpf (0-5); Specific Gravity,Urine 1.017 (1.001-1.035); Urobilinogen,Urine <2.0 mg/dL (<2.0); WBC,Urine 15 /hpf (0-5)
[2020-01-08 22:30] LABS: Ferritin 240.7 ng/mL (22.0-322.0)
[2020-01-08 22:36] LABS: % Iron Saturation 12.37 (15.00-50.00)
[2020-01-08] MEDS: HALOPERIDOL LACTATE 5 MG/ML 1 ML VIAL IVP PRN (22:49)
[2020-01-09] MEDS: LORazepam 2 MG/ML INJ IV PRN ×5 (00:03→04:49)
[2020-01-09] MEDS: HALOPERIDOL LACTATE 5 MG/ML 1 ML VIAL IVP PRN ×2 (03:44→14:05)
[2020-01-09 05:00] LABS: Anisocytosis Slight; Basophils % (A) 0 %; Eosinophils # (A) 0.1 k/uL (0-0.7); Eosinophils % (A) 2 %; HCT 23.3 % (39.0-53.0); HGB 7.8 gm/dL (13.0-17.5); Lymphocytes # (A) 1.2 k/uL (1.0-4.8); Lymphocytes % (A) 20 %; MCHC 33.5 g/dL (31.0-37.0); MCV 119.7 fL (80.0-100.0); Mean Platelet Volume 8.6; Monocytes # (A) 0.4 k/uL (0-1.0); Monocytes % (A) 7 %; Neutrophils # (A) 3.9 k/uL (1.3-7.7); Neutrophils % (A) 68 %; Platelet Count 115 k/uL (150-450); RBC 1.95 m/uL (4.30-5.90); RDW 17.3 % (11.5-15.5); WBC 5.8 k/uL (3.8-10.6)
[2020-01-09] MEDS: DEXMEDETOMIDINE/0.9% NACL(PMX) 400 MCG in EMPTY BAG 1 BAG IV SCH ×2 (05:05→14:15)
[2020-01-09 05:10] LABS: Macrocytosis Marked
[2020-01-09 05:26] LABS: Albumin 2.2 g/dL (3.5-5.0); Calcium 7.4 mg/dL (8.4-10.2); Magnesium 1.5 mg/dL (1.6-2.3); Potassium 3.8 mmol/L (3.5-5.1); Total Protein 4.6 g/dL (6.3-8.2)
[2020-01-09] MEDS: MAGNESIUM SULFATE-D5W PMX 1 GM in DEXTROSE/WATER 1 100ML.BAG IVPB SCH ×2 (05:40→06:37)
[2020-01-09] MEDS: POTASSIUM CHLORIDE 10 MEQ in WATER FOR INJECTION 1 100ML.BAG IVPB SCH ×2 (05:41→06:37)
[2020-01-09] MEDS: THIAMINE 100 MG TAB PO SCH (06:34)
[2020-01-09] MEDS: METOPROLOL TARTRATE 25 MG TAB PO SCH ×2 (08:36→19:33)
[2020-01-09] MEDS: TAMSULOSIN 0.4 MG CAP.ER.24H PO SCH (08:36)
[2020-01-09] MEDS: FUROSEMIDE 40 MG TAB PO SCH (08:36)
[2020-01-09] MEDS: APIXABAN 5 MG TAB PO SCH (08:36)
[2020-01-09] MEDS: FOLIC ACID 1 MG TAB PO SCH (08:36)
[2020-01-09] MEDS: THIAMINE 100 MG/ML 2 ML VIAL IM SCH (08:40)
[2020-01-09] MEDS: PANTOPRAZOLE 40 MG/10 ML VIAL IV SCH (08:41)
[2020-01-09] MEDS ORDERED: DEXTROSE 5%-0.9% NACL 1,000 ML IV SCH (09:45)
[2020-01-09] MEDS: ENOXAPARIN 80 MG/0.8 ML SYRINGE SQ SCH ×2 (10:26→20:11)
--- NOTE | 2020-01-09 11:05 | P.PN ---
Subjective Patient seen in follow-up for acute kidney injury. Renal function improving. Patient went into alcohol withdrawal yesterday and was transferred back to the intensive care unit. Currently sleeping. Hemodynamically stable. Nonoliguric. Vital signs are stable. General: The patient appeared well nourished and normally developed. HEENT: Head exam is unremarkable. Neck is without jugular venous distension. LUNGS: Breath sounds decreased. Scattered rhonchi. HEART: Rate and Rhythm are regular. ABDOMEN: Soft, nontender. EXTREMITITES: No clubbing, cyanosis, or edema. Objective - Vital Signs Vital signs: Vital Signs Temp 98.2 F 01/09/20 08:00 Pulse 74 01/09/20 09:00 Resp 28 H 01/09/20 09:00 BP 130/80 01/09/20 09:00 Pulse Ox 94 L 01/09/20 09:00 Intake & Output 01/08/20 01/09/20 01/09/20 18:59 06:59 18:59 Intake Total 480 468.978 115 Output Total 700 540 200 Balance -220 -71.022 -85 Intake: IV 460 115 KVO @ 20 60 115 Magnesium Sulfate-D5w Pmx 200 1 gm In Dextrose/Water 1 100ml.bag @ 100 mls/hr IVPB Q1H TAMMY Rx#: [id number] Potassium Chloride 10 meq 200 In Water For Injection 1 100ml.bag @ 100 mls/hr IVPB Q1H TAMMY Rx#: [id number] Intake, IV Titration 8.978 Amount Dexmedetomidine/0.9% NaCl 8.978 (Pmx) 400 mcg In Empty Bag 1 bag @ Titrate IV . Q0M TAMMY Rx#:[id number] Oral 480 0 Output: Urine 700 540 200 Other: Voiding Method Indwelling Catheter Indwelling Catheter Indwelling Catheter # Voids 0 # Bowel Movements 1 - Labs CBC & Chem 7: 01/09/20 04:21 01/09/20 04:21 Labs: Abnormal Lab Results - Last 24 Hours (Table) 01/08/20 01/08/20 01/08/20 Range/Units 05:42 05:42 12:17 RBC 2.18 L (4.30-5.90) m/uL Hgb 8.7 L (13.0-17.5) gm/dL Hct 26.2 L (39.0-53.0) % MCV 120.1 H (80.0-100.0) fL MCH 40.2 H (25.0-35.0) pg RDW 17.0 H (11.5-15.5) % Plt Count 121 L (150-450) k/uL Macrocytosis Marked A Chloride (98-107) mmol/L Creatinine (0.66-1.25) mg/dL Calcium (8.4-10.2) mg/dL Magnesium (1.6-2.3) mg/dL Iron 23 L (65-175) ug/dL TIBC 186 L (228-460) ug/dL % Saturation 12.37 L (15.00-50.00) Alkaline Phosphatase (38-126) U/L Total Protein (6.3-8.2) g/dL Albumin (3.5-5.0) g/dL Vitamin B12 >4000.0 H (211-911) pg/mL Urine Protein (Negative) Urine Blood (Negative) Ur Leukocyte Esterase (Negative) Urine RBC (0-5) /hpf Urine WBC (0-5) /hpf Urine Mucus (None) /hpf 01/08/20 01/09/20 01/09/20 Range/Units 21:25 04:21 04:21 RBC 1.95 L (4.30-5.90) m/uL Hgb 7.8 L (13.0-17.5) gm/dL Hct 23.3 L (39.0-53.0) % MCV 119.7 H (80.0-100.0) fL MCH 40.0 H (25.0-35.0) pg RDW 17.3 H (11.5-15.5) % Plt Count 115 L (150-450) k/uL Macrocytosis Marked A Chloride 113 H (98-107) mmol/L Creatinine 1.48 H (0.66-1.25) mg/dL Calcium 7.4 L (8.4-10.2) mg/dL Magnesium 1.5 L (1.6-2.3) mg/dL Iron (65-175) ug/dL TIBC (228-460) ug/dL % Saturation (15.00-50.00) Alkaline Phosphatase 25 L (38-126) U/L Total Protein 4.6 L (6.3-8.2) g/dL Albumin 2.2 L (3.5-5.0) g/dL Vitamin B12 (211-911) pg/mL Urine Protein Trace H (Negative) Urine Blood Large H (Negative) Ur Leukocyte Esterase Moderate H (Negative) Urine RBC 131 H (0-5) /hpf Urine WBC 15 H (0-5) /hpf Urine Mucus Rare H (None) /hpf Microbiology - Last 24 Hours (Table) 01/08/20 21:25 Urine Culture - Preliminary Urine,Clean Catch Assessment and Plan Plan: Assessment: 1. Acute kidney injury mostly prerenal secondary to hypotension and diuretics. Creatinine 2.83 on admission and is 1.48 today. Creatinine was as low as 1.18 as of 09/15/2019. No proteinuria. Renal ultrasound revealed no hydronephrosis. 2. Metabolic acidosis secondary to acute kidney injury and lactic acidosis. Improved. 3. Hypomagnesemia secondary to diuresis. Status post placement. 4. Hypokalemia secondary to diuresis. Status post replacement. 5. Chronic diastolic CHF. 6. Anemia. Iron deficiency noted. 7. Mild fluid overload. 8. Hypomagnesemia from poor intake. Plan: Maintain Lasix 40 mg orally once daily. Continue to monitor renal function and urine output. IV iron 3 doses. First dose today. Magnesium and potassium replaced.
--- NOTE | 2020-01-09 11:39 | P.PN ---
Subjective Progress Note Date: 01/09/20 This 69-year-old gentleman was admitted with weakness, recurrent falls and also acute kidney injury. Patient developed agitation and alcohol withdrawal symptoms. Patient was transferred to intensive care unit and was in restraints. Patient apparently got sedation and seemed to be sleeping at this time. Otherwise patient seems to be relatively stable. His creatinine has shown improvement. No cardiac arrhythmias. We'll continue current medical therapy Objective - Vital Signs Vital signs: Vital Signs Temp 98.2 F 01/09/20 08:00 Pulse 73 01/09/20 11:00 Resp 28 H 01/09/20 11:00 BP 136/75 01/09/20 11:00 Pulse Ox 97 01/09/20 11:00 Intake & Output 01/08/20 01/09/20 01/09/20 18:59 06:59 18:59 Intake Total 480 468.978 115 Output Total 700 540 200 Balance -220 -71.022 -85 Intake: IV 460 115 KVO @ 20 60 115 Magnesium Sulfate-D5w Pmx 200 1 gm In Dextrose/Water 1 100ml.bag @ 100 mls/hr IVPB Q1H TAMMY Rx#: [id number] Potassium Chloride 10 meq 200 In Water For Injection 1 100ml.bag @ 100 mls/hr IVPB Q1H TAMMY Rx#: [id number] Intake, IV Titration 8.978 Amount Dexmedetomidine/0.9% NaCl 8.978 (Pmx) 400 mcg In Empty Bag 1 bag @ Titrate IV . Q0M TAMMY Rx#:[id number] Oral 480 0 Output: Urine 700 540 200 Other: Voiding Method Indwelling Catheter Indwelling Catheter Indwelling Catheter # Voids 0 # Bowel Movements 1 - Exam GENERAL EXAM: Patient is sedated and sleepy HEENT: Normocephalic. Normal reaction of pupils, equal size, normal range of extraocular motion. No erythema or exudates in the throat. NECK: No masses, no nuchal rigidity. CHEST: No chest wall deformity. LUNGS: Equal air entry with no crackles or wheeze. HEART: S1 and S2 normal with no audible mumurs or gallops. Regular rhythm, femorals equal on both sides.. ABDOMEN: No hepatosplenomegaly, normal bowel sounds, no guarding or rigidity. SKIN: No rashes CENTRAL NERVOUS SYSTEM: No focal deficits. EXTREMITIES: No cyanosis, clubbing or edema. - Labs CBC & Chem 7: 01/09/20 04:21 01/09/20 04:21 Labs: Abnormal Lab Results - Last 24 Hours (Table) 01/08/20 01/08/20 01/08/20 Range/Units 05:42 05:42 12:17 RBC 2.18 L (4.30-5.90) m/uL Hgb 8.7 L (13.0-17.5) gm/dL Hct 26.2 L (39.0-53.0) % MCV 120.1 H (80.0-100.0) fL MCH 40.2 H (25.0-35.0) pg RDW 17.0 H (11.5-15.5) % Plt Count 121 L (150-450) k/uL Macrocytosis Marked A Chloride (98-107) mmol/L Creatinine (0.66-1.25) mg/dL Calcium (8.4-10.2) mg/dL Magnesium (1.6-2.3) mg/dL Iron 23 L (65-175) ug/dL TIBC 186 L (228-460) ug/dL % Saturation 12.37 L (15.00-50.00) Alkaline Phosphatase (38-126) U/L Total Protein (6.3-8.2) g/dL Albumin (3.5-5.0) g/dL Vitamin B12 >4000.0 H (211-911) pg/mL Urine Protein (Negative) Urine Blood (Negative) Ur Leukocyte Esterase (Negative) Urine RBC (0-5) /hpf Urine WBC (0-5) /hpf Urine Mucus (None) /hpf 01/08/20 01/09/20 01/09/20 Range/Units 21:25 04:21 04:21 RBC 1.95 L (4.30-5.90) m/uL Hgb 7.8 L (13.0-17.5) gm/dL Hct 23.3 L (39.0-53.0) % MCV 119.7 H (80.0-100.0) fL MCH 40.0 H (25.0-35.0) pg RDW 17.3 H (11.5-15.5) % Plt Count 115 L (150-450) k/uL Macrocytosis Marked A Chloride 113 H (98-107) mmol/L Creatinine 1.48 H (0.66-1.25) mg/dL Calcium 7.4 L (8.4-10.2) mg/dL Magnesium 1.5 L (1.6-2.3) mg/dL Iron (65-175) ug/dL TIBC (228-460) ug/dL % Saturation (15.00-50.00) Alkaline Phosphatase 25 L (38-126) U/L Total Protein 4.6 L (6.3-8.2) g/dL Albumin 2.2 L (3.5-5.0) g/dL Vitamin B12 (211-911) pg/mL Urine Protein Trace H (Negative) Urine Blood Large H (Negative) Ur Leukocyte Esterase Moderate H (Negative) Urine RBC 131 H (0-5) /hpf Urine WBC 15 H (0-5) /hpf Urine Mucus Rare H (None) /hpf Microbiology - Last 24 Hours (Table) 01/08/20 21:25 Urine Culture - Preliminary Urine,Clean Catch Assessment and Plan (1) Chronic diastolic CHF (congestive heart failure) Current Visit: Yes Status: Acute Code(s): I50.32 - CHRONIC DIASTOLIC (CONGESTIVE) HEART FAILURE SNOMED Code(s): 855386387 (2) ARF (acute renal failure) Current Visit: Yes Status: Acute Code(s): N17.9 - ACUTE KIDNEY FAILURE, UNSPECIFIED SNOMED Code(s): 70903540 (3) Anemia Current Visit: Yes Status: Acute Code(s): D64.9 - ANEMIA, UNSPECIFIED SNOMED Code(s): 501552425 (4) Fall Current Visit: Yes Status: Acute Code(s): W19.XXXA - UNSPECIFIED FALL, INITIAL ENCOUNTER SNOMED Code(s): 3458734 (5) Lactic acidosis Current Visit: Yes Status: Acute Code(s): E87.2 - ACIDOSIS SNOMED Code(s): 38764673 (6) CAD (coronary artery disease) Current Visit: Yes Status: Acute Code(s): I25.10 - ATHSCL HEART DISEASE OF [place] CORONARY ARTERY W/O ANG PCTRS SNOMED Code(s): 90172148 Plan: Patient to continue current medical therapy. No arrhythmias. We'll follow
[2020-01-09 13:16] LABS: Anisocytosis Slight; HCT 27.3 % (39.0-53.0); HGB 8.8 gm/dL (13.0-17.5); Hypochromasia Slight; MCH 39.8 pg (25.0-35.0); MCHC 32.3 g/dL (31.0-37.0); MCV 123.2 fL (80.0-100.0); Macrocytosis Marked; Mean Platelet Volume 8.5; Platelet Count 128 k/uL (150-450); RBC 2.21 m/uL (4.30-5.90); RDW 16.9 % (11.5-15.5); WBC 7.8 k/uL (3.8-10.6)
--- NOTE | 2020-01-09 13:31 | P.PN ---
Subjective Progress Note Date: 01/09/20 This is a 69-year-old male patient with multiple medical problems and comorbidities. The patient is known to have coronary artery disease, previous bypass surgery, peripheral vascular disease, chronic diastolic heart failure and remote history of pulmonary embolism and is demented on long-term anticoagu lation. The patient has had also previous history of CVA with generalized weakness more so in his lower extremities in addition to frequent falls. He is essentially poor historian. He reports that his ankylosis of the swelling in and same time the legs have been sore and weak and he hasn't been able to ambulate properly. He drinks alcohol on a daily basis and he takes 3 shots of Basil Yap every day, 3 times a day. The patient has had no focal neurological deficit. No seizure activity. No change in his speech. No episodes of syncope. No fever. No chills. No ascending paralysis. He came into the ED and his alcohol level was 35. He was found to be slightly dehydrated with some mild elevation of the renal function knowing that he has a chronic kidney disease. He also had some mild lactic acidosis. Overnight, the patient was monitored. He was given IV fluids. He has a white cell count of 7.2 from this morning with a hemoglobin of 9.5. I also notice a drop in his platelet count from 127 down to 79. His BUN is at 21 with a creatinine of 2.3 and is improved compared to yesterday 9 of yesterday creatinine was at 2.8. The serum bicarbonate of 15 with an anion gap of 12. Lactic acid level was at 7.2 is down to 1.9. He has have a troponin leak with troponin level of 0.1 and 0.09 respectively 2. Her BNP level was 2060. UA was negative. Salicylates, and Tylenol levels were also negative. CAT scan of the chest abdomen and pelvis was done emergency and it showed a 1 cm nodule disappears segment of the right lower lobe in the right paraspinal region. There was also some mild infiltration of disappears segment of the left lower lobe and some mild subsegmental infiltration of the lateral aspect of the right lower lobe. This was noted to be nonspecific and probably of an inflammatory nature. Ascending aorta is at 3.6 cm. There was a small hiatal hernia. Thoracic and lumbar spine were within normal limits. No intra-abdominal abnormalities. The computed tomography scan of the brain showed some old left occipital an inferior lateral temporal cortical infarct. Old thalamic lacunar infarct was also seen. The carotid Doppler was ordered which showed a 50-69% stenosis of left internal carotid artery. No significant stenosis involving the right carotid artery. Patient is seen today January [id number] in the selective care unit. He is currently resting comfortably in bed. Awake and alert in no acute distress. He is still having ongoing issues with weakness of his lower extremities. Difficult raising his legs off the bed. Still with some bilateral swelling of her lower extremities. Venous Doppler of the lower extremities revealed intralum inal are noncompressible thrombus within the right proximal and mid superficial femoral vein. Normal flow of the left leg. The patient does admit to having stopped all of his home medication for approximately 2 weeks because he was "sick of taking so many medications". He was to be on Eliquis 2.5 mg twice a day. White count 6.8. Hemoglobin 8.0. MCV 122. Platelets 98,000. Sodium 135. Potassium 3.6. Chloride 113. Bicarb 22. Creatinine 1.65. He is currently maintaining good O2 saturations in the mid 90s on 2 L/m per nasal cannula. He's been afebrile. Hemodynamically stable. He has resumed on Eliquis currently at 10 mg twice a day. Aspirin. [facility] protocol is in place. 2019, the patient is in the intensive care unit. The patient became quite confused and agitated and he went into acute delirium tremens. He was very hard to control. Overnight he received more than 20 mg of Ativan and he was also given Haldol. Earlier this morning he was started on Precedex which controlled his agitation. Currently is resting comfortably in bed. The patient is on Precedex at 0.2 mg per KG per minute. The patient apparently was very much agitated and combative overnight. Current rhythm is sinus. He is resting comfortably in bed. No tremors. No agitation. No seizure activity has been noted. No other significant events overnight. No aspiration. No fever or chills. His white cell count is at 7.8 with a hemoglobin of 8.8. As mentioned earlier, renal function is improving. His daughter points. She is unable to take his anticoagulants regarding his DVT. Otherwise to switch him to Lovenox as the patient is unable to take anything orally for now. The rest of the oral medication will be kept on hold. Objective - Vital Signs Vital signs: Vital Signs Temp 3 F L 01/09/20 12:00 Pulse 75 01/09/20 12:00 Resp 25 H 01/09/20 12:00 BP 160/99 01/09/20 12:00 Pulse Ox 97 01/09/20 12:00 Intake & Output 01/08/20 01/09/20 01/09/20 18:59 06:59 18:59 Intake Total 480 468.978 265 Output Total 700 540 335 Balance -220 -71.022 -70 Intake: IV 460 265 KVO @ 20 60 265 Magnesium Sulfate-D5w Pmx 200 1 gm In Dextrose/Water 1 100ml.bag @ 100 mls/hr IVPB Q1H TAMMY Rx#: [id number] Potassium Chloride 10 meq 200 In Water For Injection 1 100ml.bag @ 100 mls/hr IVPB Q1H TAMMY Rx#: [id number] Intake, IV Titration 8.978 Amount Dexmedetomidine/0.9% NaCl 8.978 (Pmx) 400 mcg In Empty Bag 1 bag @ Titrate IV . Q0M TAMMY Rx#:[id number] Oral 480 0 Output: Urine 700 540 335 Other: Voiding Method Indwelling Catheter Indwelling Catheter Indwelling Catheter # Voids 0 # Bowel Movements 1 - Exam General: This is a very pleasant 69-year-old gentleman, on 2 L nasal cannula, sedated, comfortable likely distress, sleeping and arousable. He is snoring. Derm: warm, dry Head: atraumatic, normocephalic, symmetric Eyes: EOMI, no lid lag, anicteric sclera Mouth: no lip lesion, mucus membranes dry Cardiovascular: S1S2 reg, no murmur, positive posterior tibial pulse bilateral, Lungs: CTA bilateral, no rhonchi, no rales , no accessory muscle use Abdominal: soft, nontender to palpation, no guarding, no appreciable organomegaly Ext: no gross muscle atrophy, 3+edema b/l LE R>L, no contractures, and the patient has diminished muscle power and lower eczematous bilaterally in the motor power is around 3 out of grasp Neuro: CN II-XI grossly intact, + intention tremor, poor coordniation when trying to grrasp things. Unable to do motor and sensory function analysis. The flexible was symmetrical and there is no focal neurological deficit that the patient withdraws to painful fibrillation all 4 extremities. Psych: Unable to do based on the above - Labs CBC & Chem 7: 01/09/20 12:46 01/09/20 04:21 Labs: Abnormal Lab Results - Last 24 Hours (Table) 01/08/20 01/08/20 01/08/20 Range/Units 05:42 05:42 21:25 RBC (4.30-5.90) m/uL Hgb (13.0-17.5) gm/dL Hct (39.0-53.0) % MCV (80.0-100.0) fL MCH (25.0-35.0) pg RDW (11.5-15.5) % Plt Count (150-450) k/uL Macrocytosis Chloride (98-107) mmol/L Creatinine (0.66-1.25) mg/dL Calcium (8.4-10.2) mg/dL Magnesium (1.6-2.3) mg/dL Iron 23 L (65-175) ug/dL TIBC 186 L (228-460) ug/dL % Saturation 12.37 L (15.00-50.00) Alkaline Phosphatase (38-126) U/L Total Protein (6.3-8.2) g/dL Albumin (3.5-5.0) g/dL Vitamin B12 >4000.0 H (211-911) pg/mL Urine Protein Trace H (Negative) Urine Blood Large H (Negative) Ur Leukocyte Esterase Moderate H (Negative) Urine RBC 131 H (0-5) /hpf Urine WBC 15 H (0-5) /hpf Urine Mucus Rare H (None) /hpf 01/09/20 01/09/20 01/09/20 Range/Units 04:21 04:21 12:46 RBC 1.95 L 2.21 L (4.30-5.90) m/uL Hgb 7.8 L 8.8 L (13.0-17.5) gm/dL Hct 23.3 L 27.3 L (39.0-53.0) % MCV 119.7 H 123.2 H (80.0-100.0) fL MCH 40.0 H 39.8 H (25.0-35.0) pg RDW 17.3 H 16.9 H (11.5-15.5) % Plt Count 115 L 128 L (150-450) k/uL Macrocytosis Marked A Marked A Chloride 113 H (98-107) mmol/L Creatinine 1.48 H (0.66-1.25) mg/dL Calcium 7.4 L (8.4-10.2) mg/dL Magnesium 1.5 L (1.6-2.3) mg/dL Iron (65-175) ug/dL TIBC (228-460) ug/dL % Saturation (15.00-50.00) Alkaline Phosphatase 25 L (38-126) U/L Total Protein 4.6 L (6.3-8.2) g/dL Albumin 2.2 L (3.5-5.0) g/dL Vitamin B12 (211-911) pg/mL Urine Protein (Negative) Urine Blood (Negative) Ur Leukocyte Esterase (Negative) Urine RBC (0-5) /hpf Urine WBC (0-5) /hpf Urine Mucus (None) /hpf Microbiology - Last 24 Hours (Table) 01/08/20 21:25 Urine Culture - Preliminary Urine,Clean Catch Assessment and Plan Plan: 1 motor weakness involving lower, is bilaterally, consider underlying neuropathy. The patient has been having frequent falls secondary to this problem 2 alcoholism with delirium tremens. The patient required a combination of Haldol and Ativan which was unable to control the patient's agitation. Currently on Precedex drip with adequate control of his agitation and is resting comfortably in bed. 3 coronary artery disease bypass surgery 4 Peripheral artery disease 5 chronic artery stenosis in the order of 50-69% involving left third artery 6 chronic anemia 7 chronic thrombocytopenia with interval improvement of plated count which is up 128 8 troponin leak 9 chronic kidney disease, stage III, with an acute worsening renal function probably related to intravascular volume depletion/dehydration, the acute decompensation recovered and the patient's creatinine is down to 1.48 with a GFR of 48. 10 lactic acidosis, improved 11 alcoholism 12 history of CVA involving the left occipital and temporal in addition to right thalamic or carotid infarct 13 diastolic heart failure with increased lower extremity edema 14 remote history of pulmonary embolism 15 DVT of the right lower extremity involving the right proximal and mid superficial femoral vein. Plan D5 normal saline at rate of 75 mL's an hour Keep the patient nothing by mouth for now Precedex for agitation Monitor signs and symptoms of delirium tremens Stopped Eliquis for now and switch this patient to Lovenox 80 mg subcu every 12 hours Monitor hemoglobin and platelet count Monitor renal function The coronavirus Covid 19 evaluation came back negative We'll continue to follow
[2020-01-09] MEDS: SODIUM FERRIC GLUCONAT-SUCROSE 125 MG in SODIUM CHLORIDE 0.9% 100 ML IVPB SCH (14:07)
--- NOTE | 2020-01-09 16:00 | P.PN ---
Subjective Progress Note Date: 01/09/20 (delyaed charting seen at ) Principal diagnosis: weakness Patient is a 69-year-old male with diastolic congestive heart failure, pulmonary embolism, hypertension, coronary artery disease, tobacco abuse, and ongoing alcohol use who presented to the ER due to frequent falls. In the ER he underwent an extensive evaluation. His vital signs were within normal limits on admission. Laboratory analysis showed hemoglobin 9.2, hematocrit 27.1, platelet count 127, VBG showed a normal pH of 7.34, carbon dioxide 15, BUN 22, creatinine 2.83, lactic acid 7.2, magnesium 1.5, and troponin 0.105, BNP mildly elevated at 0. Chest x-ray showed no acute process but did show chronic changes. Pelvic x-rays showed no acute process. 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 He underwent a CT abdomen and pelvis which showed mild bilateral pulmonary infiltrates probably related inflammatory disease with a small right lower lobe nodule. He was admitted for acute renal failure with generalized weakness. He was started on IV fluids and his diuretics were held. Patient was admitted to the ICU secondary to his lactic acidosis. His lactic acid normalized to less than 2 by the morning of 01/06. He underwent a renal ultrasound which showed no evidence of hydronephrosis. He was seen by urology who felt that he should stay off of diuretics and continue IV fluids bilateral lesser rate. He was seen by cardiology for his positive troponin, troponin was repeated and was down trending. It was felt that his troponin elevation was likely secondary to acute renal failure. He was seen by neurology who felt gait instability likely due to B12 def and thiamine deficiency. CXR increased interstitial markings. Echo with EF 60- 65%, grade 1 diastolic dysfunction. His renal function stabalized. His B 12 level came back high. He started to become agitated, confused, adn tachycardiac on 01/07 he received multiple doses of ativan and had to be transferred to the ICU. He continued to be agitated and was started on a precedex. Of note patient states he restarted all of his medications after not taking them for quite some time on 01/04/2020. Patient seen and examined at bedside. He is sedated, says yes to physical stimulation. D/W nursing. He was started on precedex this morning as he was still agitated and fighting staff this quickly calmed him down, he is not currently able to swallow medications and his eliquis was transitioned to lovenox and the remained of his pills were held. General: non toxic , no distress, appears older than stated age, disheveled Derm: warm, dry Head: atraumatic, normocephalic, symmetric Eyes: EOMI, no lid lag, anicteric sclera Mouth: no lip lesion, mucus membranes dry Cardiovascular: S1S2 reg, no murmur, positive posterior tibial pulse bilateral, Lungs: Course bs bilateral, no accessory muscle use Abdominal: soft, nontender to palpation, no guarding, no appreciable organomegaly Ext: no gross muscle atrophy, 2+ edema b/l LE R>L, no contractures Neuro: CN II-XI grossly intact, no tremor Psych: lethargic Delirium Tremens - Precedex -Continue with CIWA protocol -Folic acid supplementation -Thiamine to IM 5 days Acute kidney injury on chronic kidney disease stage III -Nephrology recommendations appreciated -Renal ultrasound without significant hydronephrosis -Continue off of Zaroxolyn, lasix restarted -Avoid additional nephrotoxic -Repeat renal function in a.m. [facility] care Multiple falls, Weakness with poor propriception - folate and thiamine deficiency - neuro recs appreciated - Thiamin IM - PT/OT - Fall precautions Right lower extremity acute DVT - Eliquis 10 BID once able to swallow, lovenox for now Anemia - possible Fe deficeincy, IV Fe X 3 - no over signs of bleeding will need to watch carefully with eliquis - Repeat this afternoon - Follow CBC - B12 normal and supplementation discontinued - Folate supplementation Thrombocytopenia -Suspect reactive -Repeat CBC in a.m. Elevated troponin likely secondary to acute renal failure on chronic kidney disease -Downtrending -Cardiology recommendations -Continue with aspirin Carotid artery disease - Left with 50-69% stenosis - outpatient vascular follow-up - ASA and statin HTN - resume metoprolol - follow BP close was hypotensive on admission Compensated diastolic CHF Lacitc acidosis, resolved Hypomagnesemia, resolved DVT prophylaxis: lovenox Discussed with: patient, nursing Anticipated discharge: in 3-[address]: SNF A total of 35 minutes was spent on the care of this complex patient more than 50% of the time was spent in counseling and care coordination. Objective - Vital Signs Vital signs: Vital Signs Temp 3 F L 01/09/20 12:00 Pulse 76 01/09/20 14:00 Resp 32 H 01/09/20 14:00 BP 152/81 01/09/20 14:00 Pulse Ox 92 L 01/09/20 14:00 Intake & Output 01/08/20 01/09/20 01/09/20 18:59 06:59 18:59 Intake Total 480 468.978 469.181 Output Total 700 540 410 Balance -220 -71.022 59.181 Intake: IV 460 415 KVO @ 20 60 415 Magnesium Sulfate-D5w Pmx 200 1 gm In Dextrose/Water 1 100ml.bag @ 100 mls/hr IVPB Q1H TAMMY Rx#: [id number] Potassium Chloride 10 meq 200 In Water For Injection 1 100ml.bag @ 100 mls/hr IVPB Q1H TAMMY Rx#: [id number] Intake, IV Titration 8.978 54.181 Amount Dexmedetomidine/0.9% NaCl 8.978 54.181 (Pmx) 400 mcg In Empty Bag 1 bag @ Titrate IV . Q0M TAMMY Rx#:[id number] Oral 480 0 Output: Urine 700 540 410 Other: Voiding Method Indwelling Catheter Indwelling Catheter Indwelling Catheter # Voids 0 # Bowel Movements 1 - Labs CBC & Chem 7: 01/09/20 12:46 01/09/20 04:21 Labs: Abnormal Lab Results - Last 24 Hours (Table) 01/08/20 01/08/20 01/09/20 Range/Units 05:42 21:25 04:21 RBC 1.95 L (4.30-5.90) m/uL Hgb 7.8 L (13.0-17.5) gm/dL Hct 23.3 L (39.0-53.0) % MCV 119.7 H (80.0-100.0) fL MCH 40.0 H (25.0-35.0) pg RDW 17.3 H (11.5-15.5) % Plt Count 115 L (150-450) k/uL Macrocytosis Marked A Chloride (98-107) mmol/L Creatinine (0.66-1.25) mg/dL Calcium (8.4-10.2) mg/dL Magnesium (1.6-2.3) mg/dL Iron 23 L (65-175) ug/dL TIBC 186 L (228-460) ug/dL % Saturation 12.37 L (15.00-50.00) Alkaline Phosphatase (38-126) U/L Total Protein (6.3-8.2) g/dL Albumin (3.5-5.0) g/dL Urine Protein Trace H (Negative) Urine Blood Large H (Negative) Ur Leukocyte Esterase Moderate H (Negative) Urine RBC 131 H (0-5) /hpf Urine WBC 15 H (0-5) /hpf Urine Mucus Rare H (None) /hpf 01/09/20 01/09/20 Range/Units 04:21 12:46 RBC 2.21 L (4.30-5.90) m/uL Hgb 8.8 L (13.0-17.5) gm/dL Hct 27.3 L (39.0-53.0) % MCV 123.2 H (80.0-100.0) fL MCH 39.8 H (25.0-35.0) pg RDW 16.9 H (11.5-15.5) % Plt Count 128 L (150-450) k/uL Macrocytosis Marked A Chloride 113 H (98-107) mmol/L Creatinine 1.48 H (0.66-1.25) mg/dL Calcium 7.4 L (8.4-10.2) mg/dL Magnesium 1.5 L (1.6-2.3) mg/dL Iron (65-175) ug/dL TIBC (228-460) ug/dL % Saturation (15.00-50.00) Alkaline Phosphatase 25 L (38-126) U/L Total Protein 4.6 L (6.3-8.2) g/dL Albumin 2.2 L (3.5-5.0) g/dL Urine Protein (Negative) Urine Blood (Negative) Ur Leukocyte Esterase (Negative) Urine RBC (0-5) /hpf Urine WBC (0-5) /hpf Urine Mucus (None) /hpf Microbiology - Last 24 Hours (Table) 01/08/20 21:25 Urine Culture - Preliminary Urine,Clean Catch
--- NOTE | 2020-01-09 17:54 | P.PN ---
Subjective Progress Note Date: 01/09/20 Patient apparently was transferred to ICU because of alcohol withdrawal syndrome, DTs. Patient received Ativan frequently, and now on Precedex. Patient sedated. Per nurse report, when the sedation is decreased, patient becomes agitated, irritable. No seizures reported. Objective - Vital Signs Vital signs: Vital Signs Temp 98.5 F 01/09/20 16:00 Pulse 64 01/09/20 17:00 Resp 30 H 01/09/20 17:00 BP 120/72 01/09/20 17:00 Pulse Ox 97 01/09/20 17:00 Intake & Output 01/08/20 01/09/20 01/09/20 18:59 06:59 18:59 Intake Total 480 468.978 694.181 Output Total 700 540 560 Balance -220 -71.022 134.181 Intake: IV 460 640 Dextrose 5%-0.9% NaCl 1, 75 000 ml @ 75 mls/hr IV . [id number] TAMMY Rx#:[id number] KVO @ 20 60 565 Magnesium Sulfate-D5w Pmx 200 1 gm In Dextrose/Water 1 100ml.bag @ 100 mls/hr IVPB Q1H TAMMY Rx#: [id number] Potassium Chloride 10 meq 200 In Water For Injection 1 100ml.bag @ 100 mls/hr IVPB Q1H TAMMY Rx#: [id number] Intake, IV Titration 8.978 54.181 Amount Dexmedetomidine/0.9% NaCl 8.978 54.181 (Pmx) 400 mcg In Empty Bag 1 bag @ Titrate IV . Q0M TAMMY Rx#:[id number] Oral 480 0 Output: Urine 700 540 560 Other: Voiding Method Indwelling Catheter Indwelling Catheter Indwelling Catheter # Voids 0 # Bowel Movements 1 - Exam Patient sedated, but does respond to calling his name and mumbles. He moves all 4 extremities equally. - Labs CBC & Chem 7: 01/09/20 12:46 01/09/20 04:21 Labs: Abnormal Lab Results - Last 24 Hours (Table) 01/08/20 01/08/20 01/09/20 Range/Units 05:42 21:25 04:21 RBC 1.95 L (4.30-5.90) m/uL Hgb 7.8 L (13.0-17.5) gm/dL Hct 23.3 L (39.0-53.0) % MCV 119.7 H (80.0-100.0) fL MCH 40.0 H (25.0-35.0) pg RDW 17.3 H (11.5-15.5) % Plt Count 115 L (150-450) k/uL Macrocytosis Marked A Chloride (98-107) mmol/L Creatinine (0.66-1.25) mg/dL Calcium (8.4-10.2) mg/dL Magnesium (1.6-2.3) mg/dL Iron 23 L (65-175) ug/dL TIBC 186 L (228-460) ug/dL % Saturation 12.37 L (15.00-50.00) Alkaline Phosphatase (38-126) U/L Total Protein (6.3-8.2) g/dL Albumin (3.5-5.0) g/dL Urine Protein Trace H (Negative) Urine Blood Large H (Negative) Ur Leukocyte Esterase Moderate H (Negative) Urine RBC 131 H (0-5) /hpf Urine WBC 15 H (0-5) /hpf Urine Mucus Rare H (None) /hpf 01/09/20 01/09/20 Range/Units 04:21 12:46 RBC 2.21 L (4.30-5.90) m/uL Hgb 8.8 L (13.0-17.5) gm/dL Hct 27.3 L (39.0-53.0) % MCV 123.2 H (80.0-100.0) fL MCH 39.8 H (25.0-35.0) pg RDW 16.9 H (11.5-15.5) % Plt Count 128 L (150-450) k/uL Macrocytosis Marked A Chloride 113 H (98-107) mmol/L Creatinine 1.48 H (0.66-1.25) mg/dL Calcium 7.4 L (8.4-10.2) mg/dL Magnesium 1.5 L (1.6-2.3) mg/dL Iron (65-175) ug/dL TIBC (228-460) ug/dL % Saturation (15.00-50.00) Alkaline Phosphatase 25 L (38-126) U/L Total Protein 4.6 L (6.3-8.2) g/dL Albumin 2.2 L (3.5-5.0) g/dL Urine Protein (Negative) Urine Blood (Negative) Ur Leukocyte Esterase (Negative) Urine RBC (0-5) /hpf Urine WBC (0-5) /hpf Urine Mucus (None) /hpf Microbiology - Last 24 Hours (Table) 01/08/20 21:25 Urine Culture - Preliminary Urine,Clean Catch Assessment and Plan Assessment: * Altered mental status, likely due to metabolic encephalopathy. Patient's anemia, worsening renal functions, and other vitamin deficiencies are the likely cause. * Delirium tremens * Frequent falls, likely due to gait imbalance related to B12 and folate deficiency and probable related to chronic alcoholism. * Acute DVT right lower extremity. * Vitamin B12 deficiency * Folate deficiency * Old left occipital and left inferior temporal lobe infarct * Moderate left ICA stenosis 50-69%. * History of alcoholism. * Medication noncompliance. Plan: * Patient on CIWA protocol. Patient at present is sedated. Treatment of various medical conditions as per IM/critical care. * For frequent falls, patient has received B12, folate replacement. He was counseled about abstinence from alcohol. May need short-term physical therapy. * B6, RPR and hemoglobin A1c still pending. * For moderate left ICA stenosis, patient will be continued on aspirin and Lipitor 20 mg. * Patient also has acute DVT. Patient was on Apixaban, but has been held, now on Lovenox 80 mg twice a day subcu. * Please reconsult neurology if any concerns.
[2020-01-09] MEDS: ATORVASTATIN 20 MG TAB PO SCH (19:33)
[2020-01-09] MEDS: ASPIRIN 81 MG PO SCH (19:33)
[2020-01-09] MEDS ORDERED: FUROSEMIDE 10 MG/ML 4 ML VIAL IV STA (22:54)
[2020-01-10 06:44] LABS: Anisocytosis Slight; HCT 27.2 % (39.0-53.0); HGB 9.1 gm/dL (13.0-17.5); MCH 39.9 pg (25.0-35.0); MCHC 33.4 g/dL (31.0-37.0); MCV 119.6 fL (80.0-100.0); Macrocytosis Marked; Mean Platelet Volume 9.3; Platelet Count 180 k/uL (150-450); RBC 2.27 m/uL (4.30-5.90); RDW 17.4 % (11.5-15.5); WBC 7.8 k/uL (3.8-10.6)
[2020-01-10 07:12] LABS: Calcium 8.1 mg/dL (8.4-10.2); Magnesium 1.7 mg/dL (1.6-2.3); Potassium 4.4 mmol/L (3.5-5.1)
[2020-01-10] MEDS ORDERED: DEXMEDETOMIDINE/0.9% NACL(PMX) 400 MCG in EMPTY BAG 1 BAG IV SCH (07:45)
[2020-01-10] MEDS ORDERED: Magnesium Replacement Protocol 1 EACH MISC MISCELLANE PRN (07:52)
--- NOTE | 2020-01-10 08:13 | XR ---
EXAMINATION TYPE: XR chest 1V portable DATE OF EXAM: 01/10/2020 Comparison: 01/08/2020 Clinical History: 69-year-old male shortness of breath Findings: Median sternotomy wires are present. Postoperative clips in the mediastinum. Heart normal size. Some increase in patchy right basilar and retrocardiac opacity. Patient is rotated towards the right. Impression: Rotated exam. Development of mild patchy bibasilar atelectasis versus early infiltrate.
[2020-01-10] MEDS: TAMSULOSIN 0.4 MG CAP.ER.24H PO SCH (09:31)
[2020-01-10] MEDS: FOLIC ACID 1 MG TAB PO SCH (09:31)
[2020-01-10] MEDS: FUROSEMIDE 40 MG TAB PO SCH (09:31)
[2020-01-10] MEDS: METOPROLOL TARTRATE 25 MG TAB PO SCH ×2 (09:32→20:38)
[2020-01-10] MEDS: MAGNESIUM SULFATE-D5W PMX 1 GM in DEXTROSE/WATER 1 100ML.BAG IVPB SCH ×2 (09:44→11:13)
[2020-01-10] MEDS: THIAMINE 100 MG/ML 2 ML VIAL IM SCH (09:45)
[2020-01-10] MEDS: ENOXAPARIN 80 MG/0.8 ML SYRINGE SQ SCH (09:45)
[2020-01-10] MEDS: PANTOPRAZOLE 40 MG/10 ML VIAL IV SCH (09:45)
[2020-01-10] MEDS: SODIUM FERRIC GLUCONAT-SUCROSE 125 MG in SODIUM CHLORIDE 0.9% 100 ML IVPB SCH (09:46)
[2020-01-10] MEDS: DEXTROSE 5%-0.9% NACL 1,000 ML IV SCH (11:11)
--- NOTE | 2020-01-10 11:53 | P.PN ---
Subjective Progress Note Date: 01/10/20 This is a 69-year-old male patient with multiple medical problems and comorbidities. The patient is known to have coronary artery disease, previous bypass surgery, peripheral vascular disease, chronic diastolic heart failure and remote history of pulmonary embolism and is demented on long-term anticoagu lation. The patient has had also previous history of CVA with generalized weakness more so in his lower extremities in addition to frequent falls. He is essentially poor historian. He reports that his ankylosis of the swelling in and same time the legs have been sore and weak and he hasn't been able to ambulate properly. He drinks alcohol on a daily basis and he takes 3 shots of Basil Yap every day, 3 times a day. The patient has had no focal neurological deficit. No seizure activity. No change in his speech. No episodes of syncope. No fever. No chills. No ascending paralysis. He came into the ED and his alcohol level was 35. He was found to be slightly dehydrated with some mild elevation of the renal function knowing that he has a chronic kidney disease. He also had some mild lactic acidosis. Overnight, the patient was monitored. He was given IV fluids. He has a white cell count of 7.2 from this morning with a hemoglobin of 9.5. I also notice a drop in his platelet count from 127 down to 79. His BUN is at 21 with a creatinine of 2.3 and is improved compared to yesterday 9 of yesterday creatinine was at 2.8. The serum bicarbonate of 15 with an anion gap of 12. Lactic acid level was at 7.2 is down to 1.9. He has have a troponin leak with troponin level of 0.1 and 0.09 respectively 2. Her BNP level was 2060. UA was negative. Salicylates, and Tylenol levels were also negative. CAT scan of the chest abdomen and pelvis was done emergency and it showed a 1 cm nodule disappears segment of the right lower lobe in the right paraspinal region. There was also some mild infiltration of disappears segment of the left lower lobe and some mild subsegmental infiltration of the lateral aspect of the right lower lobe. This was noted to be nonspecific and probably of an inflammatory nature. Ascending aorta is at 3.6 cm. There was a small hiatal hernia. Thoracic and lumbar spine were within normal limits. No intra-abdominal abnormalities. The computed tomography scan of the brain showed some old left occipital an inferior lateral temporal cortical infarct. Old thalamic lacunar infarct was also seen. The carotid Doppler was ordered which showed a 50-69% stenosis of left internal carotid artery. No significant stenosis involving the right carotid artery. Patient is seen today January [id number] in the selective care unit. He is currently resting comfortably in bed. Awake and alert in no acute distress. He is still having ongoing issues with weakness of his lower extremities. Difficult raising his legs off the bed. Still with some bilateral swelling of her lower extremities. Venous Doppler of the lower extremities revealed intralum inal are noncompressible thrombus within the right proximal and mid superficial femoral vein. Normal flow of the left leg. The patient does admit to having stopped all of his home medication for approximately 2 weeks because he was "sick of taking so many medications". He was to be on Eliquis 2.5 mg twice a day. White count 6.8. Hemoglobin 8.0. MCV 122. Platelets 98,000. Sodium 135. Potassium 3.6. Chloride 113. Bicarb 22. Creatinine 1.65. He is currently maintaining good O2 saturations in the mid 90s on 2 L/m per nasal cannula. He's been afebrile. Hemodynamically stable. He has resumed on Eliquis currently at 10 mg twice a day. Aspirin. [facility] protocol is in place. 2019, the patient is in the intensive care unit. The patient became quite confused and agitated and he went into acute delirium tremens. He was very hard to control. Overnight he received more than 20 mg of Ativan and he was also given Haldol. Earlier this morning he was started on Precedex which controlled his agitation. Currently is resting comfortably in bed. The patient is on Precedex at 0.2 mg per KG per minute. The patient apparently was very much agitated and combative overnight. Current rhythm is sinus. He is resting comfortably in bed. No tremors. No agitation. No seizure activity has been noted. No other significant events overnight. No aspiration. No fever or chills. His white cell count is at 7.8 with a hemoglobin of 8.8. As mentioned earlier, renal function is improving. His daughter points. She is unable to take his anticoagulants regarding his DVT. Otherwise to switch him to Lovenox as the patient is unable to take anything orally for now. The rest of the oral medication will be kept on hold. A 2019, the patient is being gradually wean off the Precedex. Earlier this morning was taken off the Precedex. He is arousable. He is sitting appropriately and somewhat confused. Less agitated. If left alone, he will sleep comfortably. He is still being treated for his underlying delirium tremens. In terms of his IV fluids, switch this patient to D5 normal state rate of 75 mL an hour. The patient is being hydrated adequately. He was also placed on Lovenox as the patient is unable to take oral anticoagulants for now. His neurologic exam is nonfocal. He withdraws all 4 extremities to painful stimulation. He still unable to hold a conversation. No seizure activity has been noted. Neurologist on the case. He remains to have global weakness all 4 extremities. He does have a congested cough. Chest x-ray showing atelectatic changes somnolent infiltrates in lung bases. The patient's white cell count 7.8 and hemoglobin 9.1. Renal function continues to improve with a BUN of 14 and creatinine of 1.1 Objective - Vital Signs Vital signs: Vital Signs Temp 96.9 F L 01/10/20 08:00 Pulse 80 01/10/20 11:00 Resp 19 01/10/20 11:00 BP 105/80 01/10/20 11:00 Pulse Ox 95 01/10/20 11:00 Intake & Output 01/09/20 01/10/20 01/10/20 18:59 06:59 18:59 Intake Total 809.501 959.680 375 Output Total 630 795 88 Balance 179.501 164.680 287 Weight 94.3 kg Intake: IV 715 900 375 Dextrose 5%-0.9% NaCl 1, 150 900 300 000 ml @ 75 mls/hr IV . [id number] TAMMY Rx#:[id number] Dextrose 5%-0.9% NaCl 1, 75 000 ml @ 75 mls/hr IV . [id number] TAMMY Rx#:[id number] KVO @ 20 565 Intake, IV Titration 94.501 59.680 Amount Dexmedetomidine/0.9% NaCl 94.501 59.680 (Pmx) 400 mcg In Empty Bag 1 bag @ Titrate IV . Q0M TAMMY Rx#:[id number] Output: Urine 630 795 88 Other: Voiding Method Indwelling Catheter Indwelling Catheter Indwelling Catheter # Voids 0 - Exam General: This is a very pleasant 69-year-old gentleman, on 2 L nasal cannula, sedated, comfortable likely distress, sleeping and arousable. He is snoring. He is sleeping if left unstimulated. Derm: warm, dry Head: atraumatic, normocephalic, symmetric Eyes: EOMI, no lid lag, anicteric sclera Mouth: no lip lesion, mucus membranes dry Cardiovascular: S1S2 reg, no murmur, positive posterior tibial pulse bilateral, Lungs: CTA bilateral, no rhonchi, no rales , no accessory muscle use Abdominal: soft, nontender to palpation, no guarding, no appreciable organomegaly Ext: no gross muscle atrophy, 3+edema b/l LE R>L, no contractures, and the pat ient has diminished muscle power and lower eczematous bilaterally in the motor power is around 3 out of grasp Neuro: CN II-XI grossly intact, + intention tremor, poor coordniation when trying to grrasp things. Unable to do motor and sensory function analysis. The flexible was symmetrical and there is no focal neurological deficit that the patient withdraws to painful fibrillation all 4 extremities. Psych: Unable to do based on the above - Labs CBC & Chem 7: 01/10/20 06:35 01/10/20 06:35 Labs: Abnormal Lab Results - Last 24 Hours (Table) 01/09/20 01/10/20 01/10/20 Range/Units 12:46 06:35 06:35 RBC 2.21 L 2.27 L (4.30-5.90) m/uL Hgb 8.8 L 9.1 L (13.0-17.5) gm/dL Hct 27.3 L 27.2 L (39.0-53.0) % MCV 123.2 H 119.6 H (80.0-100.0) fL MCH 39.8 H 39.9 H (25.0-35.0) pg RDW 16.9 H 17.4 H (11.5-15.5) % Plt Count 128 L (150-450) k/uL Macrocytosis Marked A Marked A Chloride 114 H (98-107) mmol/L Carbon Dioxide 20 L (22-30) mmol/L Glucose 122 H (74-99) mg/dL Calcium 8.1 L (8.4-10.2) mg/dL Microbiology - Last 24 Hours (Table) 01/08/20 21:25 Urine Culture - Final Urine,Clean Catch Assessment and Plan Plan: 1 motor weakness involving lower, is bilaterally, consider underlying neuropathy. The patient has been having frequent falls secondary to this problem 2 alcoholism with delirium tremens. The patient received Ativan and Haldol and later on he was switched to Precedex and currently is off the Precedex. His mental status being observed. He is wide drowsy at this point in time. He is no significant agitation. 3 coronary artery disease bypass surgery 4 Peripheral artery disease 5 chronic artery stenosis in the order of 50-69% involving left third artery 6 chronic anemia 7 chronic thrombocytopenia with interval improvement of plated count which is up 128 8 troponin leak 9 chronic kidney disease, stage III, with an acute worsening renal function probably related to intravascular volume depletion/dehydration, the acute decompensation recovered and the patient's creatinine is down to 1. 15 and is improved significantly with fluids and the patient is on D5 normal saline at rate of 75 mL an hour. 10 lactic acidosis, improved 11 alcoholism 12 history of CVA involving the left occipital and temporal in addition to right thalamic or carotid infarct 13 diastolic heart failure with increased lower extremity edema 14 remote history of pulmonary embolism 15 DVT of the right lower extremity involving the right proximal and mid superficial femoral vein. Plan D5 normal saline at rate of 75 mL's an hour Keep the patient nothing by mouth for now Precedex has been discontinued and mental status being monitored Monitor signs and symptoms of delirium tremens Lovenox 80 mg subcu every 12 hours Monitor hemoglobin and platelet count Monitor renal function Aspiration precautions Keep the patient nothing by mouth for now The coronavirus Covid 19 evaluation came back negative We'll continue to follow
--- NOTE | 2020-01-10 12:11 | PN ---
PROGRESS NOTE Patient is seen for followup for acute kidney injury. Patient's renal function has been improving. Serum creatinine is down to 1.15. Urine output however has been on the lower side at about 15 mL an hour. The patient is maintained on IV fluids. He received a dose of Lasix as well yesterday. PHYSICAL EXAMINATION: On examination today, blood pressure was 105/80, heart rate 80 per minute, he is afebrile. Examination of the heart S1, S2. Examination of the lungs, decreased breath sounds at bases. Upper airway sounds are heard. Abdomen is soft, nontender. Examination of lower extremities shows no significant edema. [employer] exam shows patient talks a little bit, however, I am not able to perform a [employer] exam. LABS: Show sodium 140, potassium 4.4, chloride 114, BUN 14, serum creatinine 1.15, hemoglobin 9.1 g/dL. ASSESSMENT: 1. Acute kidney injury, currently improving, mostly secondary to hypotension and diuresis. Maintained on IV fluids. Patient is n.p.o. We will maintain IV fluids for now. 2. Metabolic acidosis associated with renal failure, lactic acidosis, now improved. 3. Hypomagnesemia secondary to diuresis. 4. Chronic diastolic congestive heart failure. 5. Hypomagnesemia from decreased oral intake and diuresis. PLAN: May continue with IV fluids. Repeat chest x-ray in a.m. If urine output remains low, consider a dose of IV Lasix again. MMODL / IJN: [id number] /
[2020-01-10] MEDS ORDERED: FUROSEMIDE 10 MG/ML 4 ML VIAL IV STA (12:27)
--- NOTE | 2020-01-10 12:40 | P.PN ---
Subjective Progress Note Date: 01/10/20 Principal diagnosis: weakness Patient is a 69-year-old male with diastolic congestive heart failure, pulmonary embolism, hypertension, coronary artery disease, tobacco abuse, and ongoing alcohol use who presented to the ER due to frequent falls. In the ER he underwent an extensive evaluation. His vital signs were within normal limits on admission. Laboratory analysis showed hemoglobin 9.2, hematocrit 27.1, platelet count 127, VBG showed a normal pH of 7.34, carbon dioxide 15, BUN 22, creatinine 2.83, lactic acid 7.2, magnesium 1.5, and troponin 0.105, BNP mildly elevated at 2060. Chest x-ray showed no acute process but did show chronic changes. Pelvic x-rays showed no acute process. 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 He underwent a CT abdomen and pelvis which showed mild bilateral pulmonary infiltr ates probably related inflammatory disease with a small right lower lobe nodule. He was admitted for acute renal failure with generalized weakness. He was started on IV fluids and his diuretics were held. Patient was admitted to the ICU secondary to his lactic acidosis. His lactic acid normalized to less than 2 by the morning of 01/06. He underwent a renal ultrasound which showed no evidence of hydronephrosis. He was seen by urology who felt that he should stay off of diuretics and continue IV fluids bilateral lesser rate. He was seen by cardiology for his positive troponin, troponin was repeated and was down trending. It was felt that his troponin elevation was likely secondary to acute renal failure. He was seen by neurology who felt gait instability likely due to B12 def and thiamine deficiency. CXR increased interstitial markings. Echo with EF 60- 65%, grade 1 diastolic dysfunction. His renal function stabalized. His B 12 level came back high. He started to become agitated, confused, and tachycardic on 01/07 he received multiple doses of ativan and had to be transferred to the ICU. He continued to be agitated and was started on a precedex. He was more oriented and less agitated on 01/09 and precedex was discontinued. Of note patient states he restarted all of his medications after not taking them for quite some time on 01/04/2020. Patient seen and examined at bedside. Sleeping but awake easily, Alert X 3 c/o pain in arms and being thirsty. No nausea, no vomiting, no belly pain. Worried about why he had withdrawal when he doesn't drink that much. General: non toxic , no distress, appears older than stated age, disheveled Derm: warm, dry Head: atraumatic, normocephalic, symmetric Eyes: EOMI, no lid lag, anicteric sclera Mouth: no lip lesion, mucus membranes dry Cardiovascular: S1S2 reg, no murmur, positive posterior tibial pulse bilateral, Lungs: Decreased bs bilateral, no accessory muscle use Abdominal: soft, nontender to palpation, no guarding, no appreciable organomegaly Ext: no gross muscle atrophy, 2+ edema b/l LE R>L, no contractures Neuro: CN II-XI grossly intact, no tremor Psych: sleeping awakes to voice, A and O X 3, Cooperative Delirium Tremens - Precedex discontinued -Continue with CIWA protocol -Folic acid supplementation -Thiamine to IM 5 days Acute kidney injury on chronic kidney disease stage III, resolved -Nephrology recommendations appreciated -Renal ultrasound without significant hydronephrosis -Continue off of Zaroxolyn, lasix restarted -Avoid additional nephrotoxic -Repeat renal function in a.m. -Rooney in place for strict I and O during ICU care Multiple falls, Weakness with poor propriception - folate and thiamine deficiency - neuro recs appreciated - Thiamine IM - PT/OT - Fall precautions - B 12 normal, blood sugars normal - Await RPR Right lower extremity acute DVT - Eliquis 10 BID Anemia - possible Fe deficeincy, IV Fe X 3 - no over signs of bleeding will need to watch carefully with eliquis - Follow CBC - B12 normal and supplementation discontinued - Folate supplementation Elevated troponin likely secondary to acute renal failure on chronic kidney disease -Downtrending -Cardiology recommendations -Continue with aspirin Carotid artery disease - Left with 50-69% stenosis - outpatient vascular follow-up - ASA and statin HTN - metoprolol with parameters - follow BP close was hypotensive on admission Thrombocytopenia, resolved Compensated diastolic CHF Lacitc acidosis, resolved Hypomagnesemia, resolved DVT prophylaxis: Eliquis Discussed with: patient, nursing Anticipated discharge: in 2-[address]: SNF A total of 35 minutes was spent on the care of this complex patient more than 50% of the time was spent in counseling and care coordination. Objective - Vital Signs Vital signs: Vital Signs Temp 97.4 F L 01/10/20 12:00 Pulse 81 01/10/20 12:00 Resp 23 01/10/20 12:00 BP 88/21 01/10/20 12:00 Pulse Ox 93 L 01/10/20 12:00 Intake & Output 01/09/20 01/10/20 01/10/20 18:59 06:59 18:59 Intake Total 809.501 959.680 450 Output Total 630 795 103 Balance 179.501 164.680 347 Weight 94.3 kg Intake: IV 715 900 450 Dextrose 5%-0.9% NaCl 1, 150 900 300 000 ml @ 75 mls/hr IV . [id number] TAMMY Rx#:[id number] Dextrose 5%-0.9% NaCl 1, 150 000 ml @ 75 mls/hr IV . [id number] TAMMY Rx#:[id number] KVO @ 20 565 Intake, IV Titration 94.501 59.680 Amount Dexmedetomidine/0.9% NaCl 94.501 59.680 (Pmx) 400 mcg In Empty Bag 1 bag @ Titrate IV . Q0M TAMMY Rx#:[id number] Output: Urine 630 795 103 Other: Voiding Method Indwelling Catheter Indwelling Catheter Indwelling Catheter # Voids 0 - Labs CBC & Chem 7: 01/10/20 06:35 01/10/20 06:35 Labs: Abnormal Lab Results - Last 24 Hours (Table) 01/09/20 01/10/20 01/10/20 Range/Units 12:46 06:35 06:35 RBC 2.21 L 2.27 L (4.30-5.90) m/uL Hgb 8.8 L 9.1 L (13.0-17.5) gm/dL Hct 27.3 L 27.2 L (39.0-53.0) % MCV 123.2 H 119.6 H (80.0-100.0) fL MCH 39.8 H 39.9 H (25.0-35.0) pg RDW 16.9 H 17.4 H (11.5-15.5) % Plt Count 128 L (150-450) k/uL Macrocytosis Marked A Marked A Chloride 114 H (98-107) mmol/L Carbon Dioxide 20 L (22-30) mmol/L Glucose 122 H (74-99) mg/dL Calcium 8.1 L (8.4-10.2) mg/dL Microbiology - Last 24 Hours (Table) 01/08/20 21:25 Urine Culture - Final Urine,Clean Catch
--- NOTE | 2020-01-10 14:45 | P.PN ---
Subjective This 69-year-old gentleman was admitted with weakness, recurrent falls and also acute kidney injury. Patient developed agitation and alcohol withdrawal symptoms. Patient was transferred to intensive care unit and was in restraints. Patient apparently got sedation and seemed to be sleeping at this time. Otherwise patient seems to be relatively stable. His creatinine has shown improvement. No cardiac arrhythmias. We'll continue current medical therapy. 01/10/2020: This is a 69-year-old gentleman who was admitted with weakness and falls with findings of neuropathy, acute on chronic renal failure and abnormal troponin values. Patient went into alcohol withdrawal state and the delirium tremens. Patient is being treated for alcohol withdrawal. Patient seemed to be little alert and oriented 1. Doesn't appear to be any acute distress. No arrhythmias are detected. This point we'll continue with current supportive care. Objective - Vital Signs Vital signs: Vital Signs Temp 97.4 F L 01/10/20 12:00 Pulse 90 01/10/20 14:00 Resp 32 H 01/10/20 14:00 BP 105/86 01/10/20 14:00 Pulse Ox 94 L 01/10/20 14:00 Intake & Output 01/09/20 01/10/20 01/10/20 18:59 06:59 18:59 Intake Total 809.501 959.680 600 Output Total 630 795 185 Balance 179.501 164.680 415 Weight 94.3 kg Intake: IV 715 900 600 Dextrose 5%-0.9% NaCl 1, 150 900 300 000 ml @ 75 mls/hr IV . [id number] TAMMY Rx#:[id number] Dextrose 5%-0.9% NaCl 1, 300 000 ml @ 75 mls/hr IV . [id number] TAMMY Rx#:[id number] KVO @ 20 565 Intake, IV Titration 94.501 59.680 Amount Dexmedetomidine/0.9% NaCl 94.501 59.680 (Pmx) 400 mcg In Empty Bag 1 bag @ Titrate IV . Q0M TAMMY Rx#:[id number] Output: Urine 630 795 185 Other: Voiding Method Indwelling Catheter Indwelling Catheter Indwelling Catheter # Voids 0 - Exam GENERAL EXAM: Patient is alert and oriented 1 HEENT: Normocephalic. Normal reaction of pupils, equal size, normal range of extraocular motion. No erythema or exudates in the throat. NECK: No masses, no nuchal rigidity. CHEST: No chest wall deformity. LUNGS: Equal air entry with no crackles or wheeze. HEART: S1 and S2 normal with no audible mumurs or gallops. Regular rhythm, femorals equal on both sides.. ABDOMEN: No hepatosplenomegaly, normal bowel sounds, no guarding or rigidity. SKIN: No rashes CENTRAL NERVOUS SYSTEM: No focal deficits. EXTREMITIES: No cyanosis, clubbing or edema. - Labs CBC & Chem 7: 01/10/20 06:35 01/10/20 06:35 Labs: Abnormal Lab Results - Last 24 Hours (Table) 01/10/20 01/10/20 Range/Units 06:35 06:35 RBC 2.27 L (4.30-5.90) m/uL Hgb 9.1 L (13.0-17.5) gm/dL Hct 27.2 L (39.0-53.0) % MCV 119.6 H (80.0-100.0) fL MCH 39.9 H (25.0-35.0) pg RDW 17.4 H (11.5-15.5) % Macrocytosis Marked A Chloride 114 H (98-107) mmol/L Carbon Dioxide 20 L (22-30) mmol/L Glucose 122 H (74-99) mg/dL Calcium 8.1 L (8.4-10.2) mg/dL Microbiology - Last 24 Hours (Table) 01/08/20 21:25 Urine Culture - Final Urine,Clean Catch Assessment and Plan (1) Chronic diastolic CHF (congestive heart failure) Current Visit: Yes Status: Acute Code(s): I50.32 - CHRONIC DIASTOLIC (CONGESTIVE) HEART FAILURE SNOMED Code(s): 079938458 (2) ARF (acute renal failure) Current Visit: Yes Status: Acute Code(s): N17.9 - ACUTE KIDNEY FAILURE, UNSPECIFIED SNOMED Code(s): 74107755 (3) Anemia Current Visit: Yes Status: Acute Code(s): D64.9 - ANEMIA, UNSPECIFIED SNOMED Code(s): 290233829 (4) Fall Current Visit: Yes Status: Acute Code(s): W19.XXXA - UNSPECIFIED FALL, INITIAL ENCOUNTER SNOMED Code(s): 4310503 (5) Lactic acidosis Current Visit: Yes Status: Acute Code(s): E87.2 - ACIDOSIS SNOMED Code(s): 83039698 (6) CAD (coronary artery disease) Current Visit: Yes Status: Acute Code(s): I25.10 - ATHSCL HEART DISEASE OF [place] CORONARY ARTERY W/O ANG PCTRS SNOMED Code(s): 05313992 Plan: Continue supportive care. No arrhythmias. We'll follow
[2020-01-10] MEDS: ACETAMINOPHEN TAB 325 MG TAB PO PRN (15:55)
[2020-01-10] MEDS: HYDROcodone/APAP 5-325MG 1 EACH TAB PO PRN (20:37)
[2020-01-10] MEDS: ASPIRIN 81 MG PO SCH (20:38)
[2020-01-10] MEDS: APIXABAN 5 MG TAB PO SCH (20:39)
[2020-01-10] MEDS: ATORVASTATIN 20 MG TAB PO SCH (20:39)
[2020-01-11] MEDS: DEXTROSE 5%-0.9% NACL 1,000 ML IV SCH ×2 (05:55→10:49)
[2020-01-11 05:56] LABS: Anisocytosis Slight; HCT 23.9 % (39.0-53.0); MCH 40.1 pg (25.0-35.0); MCHC 33.4 g/dL (31.0-37.0); Mean Platelet Volume 8.7; Platelet Count 264 k/uL (150-450); RBC 1.99 m/uL (4.30-5.90); RDW 17.2 % (11.5-15.5); WBC 6.1 k/uL (3.8-10.6)
[2020-01-11 05:59] LABS: Macrocytosis Marked
[2020-01-11 06:15] LABS: Potassium 3.8 mmol/L (3.5-5.1)
[2020-01-11] MEDS ORDERED: POTASSIUM CHLORIDE ER 20 MEQ TAB.ER PO SCH (07:00)
[2020-01-11] MEDS: PANTOPRAZOLE 40 MG TABLET PO SCH (07:14)
[2020-01-11] MEDS: ACETAMINOPHEN TAB 325 MG TAB PO PRN (09:04)
[2020-01-11] MEDS: TAMSULOSIN 0.4 MG CAP.ER.24H PO SCH (09:08)
[2020-01-11] MEDS: APIXABAN 5 MG TAB PO SCH ×2 (09:08→20:40)
[2020-01-11] MEDS: FUROSEMIDE 40 MG TAB PO SCH (09:11)
[2020-01-11] MEDS: FOLIC ACID 1 MG TAB PO SCH (09:11)
[2020-01-11] MEDS: METOPROLOL TARTRATE 25 MG TAB PO SCH ×2 (09:11→20:40)
[2020-01-11] MEDS: THIAMINE 100 MG/ML 2 ML VIAL IM SCH (09:12)
[2020-01-11] MEDS: SODIUM FERRIC GLUCONAT-SUCROSE 125 MG in SODIUM CHLORIDE 0.9% 100 ML IVPB SCH (09:12)
--- NOTE | 2020-01-11 09:55 | P.PN ---
Subjective Progress Note Date: 01/11/20 Principal diagnosis: weakness Patient is a 69-year-old male with diastolic congestive heart failure, pulmonary embolism, hypertension, coronary artery disease, tobacco abuse, and ongoing alcohol use who presented to the ER due to frequent falls. In the ER he underwent an extensive evaluation. His vital signs were within normal limits on admission. Laboratory analysis showed hemoglobin 9.2, hematocrit 27.1, platelet count 127, VBG showed a normal pH of 7.34, carbon dioxide 15, BUN 22, creatinine 2.83, lactic acid 7.2, magnesium 1.5, and troponin 0.105, BNP mildly elevated at 2060. Chest x-ray showed no acute process but did show chronic changes. Pelvic x-rays showed no acute process. 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 He underwent a CT abdomen and pelvis which showed mild bilateral pulmonary infiltr ates probably related inflammatory disease with a small right lower lobe nodule. He was admitted for acute renal failure with generalized weakness. He was started on IV fluids and his diuretics were held. Patient was admitted to the ICU secondary to his lactic acidosis. His lactic acid normalized to less than 2 by the morning of 01/06. He underwent a renal ultrasound which showed no evidence of hydronephrosis. He was seen by urology who felt that he should stay off of diuretics and continue IV fluids bilateral lesser rate. He was seen by cardiology for his positive troponin, troponin was repeated and was down trending. It was felt that his troponin elevation was likely secondary to acute renal failure. He was seen by neurology who felt gait instability likely due to B12 def and thiamine deficiency. CXR increased interstitial markings. Echo with EF 60- 65%, grade 1 diastolic dysfunction. His renal function stabalized. His B 12 level came back high. He started to become agitated, confused, and tachycardic on 01/07 he received multiple doses of ativan and had to be transferred to the ICU. He continued to be agitated and was started on a precedex. He was more oriented and less agitated on 01/09 and precedex was discontinued. He continued to progress well. Of note patient states he restarted all of his medications after not taking them for quite some time on 01/04/2020. Patient seen and examined at bedside. Arm pain is better, headache is better, he still is feeling tired and weak. No nausea, his appetite is still not good. General: non toxic , no distress, appears older than stated age, disheveled Derm: warm, dry Head: atraumatic, normocephalic, symmetric Eyes: EOMI, no lid lag, anicteric sclera Mouth: no lip lesion, mucus membranes dry Cardiovascular: S1S2 reg, no murmur, positive posterior tibial pulse bilateral, Lungs: Decreased bs bilateral, no accessory muscle use Abdominal: soft, nontender to palpation, no guarding, no appreciable organomegaly Ext: no gross muscle atrophy, 2+ edema b/l LE R>L, no contractures Neuro: CN II-XI grossly intact, no tremor Psych: sleeping awakes to voice, A and O X 3, Cooperative Delirium Tremens - Precedex discontinued - Continue with [facility] protocol - Folic acid supplementation - Thiamine to oral Acute kidney injury on chronic kidney disease stage III, resolved -Nephrology recommendations appreciated -Renal ultrasound without significant hydronephrosis -Continue off of Zaroxolyn, lasix restarted -Avoid additional nephrotoxic -Repeat renal function in a.m. -Rooney in place for strict I and O during ICU care -Decrease IVF Multiple falls, Weakness with poor propriception - folate and thiamine deficiency replacement started - neuro recs appreciated - PT/OT - Fall precautions - B 12 normal, blood sugars normal - RPR negative Right lower extremity acute DVT - Eliquis 10 BID Anemia - possible Fe deficeincy complete IF iron - no over signs of bleeding will need to watch carefully with eliquis - Follow CBC - B12 normal and supplementation discontinued - Folate supplementation Carotid artery disease - Left with 50-69% stenosis - outpatient vascular follow-up - ASA and statin HTN - metoprolol with parameters - follow BP close was hypotensive on admission Thrombocytopenia, resolved Elevated troponin likely secondary to acute renal failure on chronic kidney disease Compensated diastolic CHF Lacitc acidosis, resolved Hypomagnesemia, resolved DVT prophylaxis: Eliquis Discussed with: patient, nursing Anticipated discharge:in AM Anticipated discharge place: SNF A total of 35 minutes was spent on the care of this complex patient more than 50% of the time was spent in counseling and care coordination. Objective - Vital Signs Vital signs: Vital Signs Temp 98.1 F 01/11/20 08:00 Pulse 84 01/11/20 09:00 Resp 20 01/11/20 09:00 BP 102/88 01/11/20 09:00 Pulse Ox 97 01/11/20 09:00 Intake & Output 01/10/20 01/11/20 01/11/20 18:59 06:59 18:59 Intake Total 1100 900 425 Output Total 410 534 145 Balance 690 366 280 Weight 95 kg Intake: IV 900 900 325 Dextrose 5%-0.9% NaCl 1, 300 000 ml @ 75 mls/hr IV . [id number] [facility] Rx#:[id number] Dextrose 5%-0.9% NaCl 1, 600 900 225 000 ml @ 75 mls/hr IV . [id number] [facility] Rx#:[id number] Sodium Ferric Gluconat- 100 Sucrose 125 mg In Sodium Chloride 0.9% 100 ml @ 100 mls/hr IVPB DAILY [facility] Rx#:[id number] Oral 200 100 Output: Urine 410 534 145 Other: Voiding Method Indwelling Catheter Indwelling Catheter Indwelling Catheter # Voids 0 # Bowel Movements 2 - Labs CBC & Chem 7: 01/11/20 05:38 01/11/20 05:38 Labs: Abnormal Lab Results - Last 24 Hours (Table) 01/11/20 01/11/20 Range/Units 05:38 05:38 RBC 1.99 L (4.30-5.90) m/uL Hgb 8.0 L (13.0-17.5) gm/dL Hct 23.9 L (39.0-53.0) % MCV 120.0 H (80.0-100.0) fL MCH 40.1 H (25.0-35.0) pg RDW 17.2 H (11.5-15.5) % Macrocytosis Marked A Sodium 135 L (137-145) mmol/L Chloride 115 H (98-107) mmol/L Carbon Dioxide 19 L (22-30) mmol/L Creatinine 1.39 H (0.66-1.25) mg/dL Calcium 8.0 L (8.4-10.2) mg/dL
[2020-01-11] MEDS: HYDROcodone/APAP 5-325MG 1 EACH TAB PO PRN (10:28)
--- NOTE | 2020-01-11 11:32 | P.PN ---
Subjective Progress Note Date: 01/11/20 This is a 69-year-old male patient with multiple medical problems and comorbidities. The patient is known to have coronary artery disease, previous bypass surgery, peripheral vascular disease, chronic diastolic heart failure and remote history of pulmonary embolism and is demented on long-term anticoagu lation. The patient has had also previous history of CVA with generalized weakness more so in his lower extremities in addition to frequent falls. He is essentially poor historian. He reports that his ankylosis of the swelling in and same time the legs have been sore and weak and he hasn't been able to ambulate properly. He drinks alcohol on a daily basis and he takes 3 shots of Basil Yap every day, 3 times a day. The patient has had no focal neurological deficit. No seizure activity. No change in his speech. No episodes of syncope. No fever. No chills. No ascending paralysis. He came into the ED and his alcohol level was 35. He was found to be slightly dehydrated with some mild elevation of the renal function knowing that he has a chronic kidney disease. He also had some mild lactic acidosis. Overnight, the patient was monitored. He was given IV fluids. He has a white cell count of 7.2 from this morning with a hemoglobin of 9.5. I also notice a drop in his platelet count from 127 down to 79. His BUN is at 21 with a creatinine of 2.3 and is improved compared to yesterday 9 of yesterday creatinine was at 2.8. The serum bicarbonate of 15 with an anion gap of 12. Lactic acid level was at 7.2 is down to 1.9. He has have a troponin leak with troponin level of 0.1 and 0.09 respectively 2. Her BNP level was 2060. UA was negative. Salicylates, and Tylenol levels were also negative. CAT scan of the chest abdomen and pelvis was done emergency and it showed a 1 cm nodule disappears segment of the right lower lobe in the right paraspinal region. There was also some mild infiltration of disappears segment of the left lower lobe and some mild subsegmental infiltration of the lateral aspect of the right lower lobe. This was noted to be nonspecific and probably of an inflammatory nature. Ascending aorta is at 3.6 cm. There was a small hiatal hernia. Thoracic and lumbar spine were within normal limits. No intra-abdominal abnormalities. The computed tomography scan of the brain showed some old left occipital an inferior lateral temporal cortical infarct. Old thalamic lacunar infarct was also seen. The carotid Doppler was ordered which showed a 50-69% stenosis of left internal carotid artery. No significant stenosis involving the right carotid artery. Patient is seen today January [id number] in the selective care unit. He is currently resting comfortably in bed. Awake and alert in no acute distress. He is still having ongoing issues with weakness of his lower extremities. Difficult raising his legs off the bed. Still with some bilateral swelling of her lower extremities. Venous Doppler of the lower extremities revealed intralum inal are noncompressible thrombus within the right proximal and mid superficial femoral vein. Normal flow of the left leg. The patient does admit to having stopped all of his home medication for approximately 2 weeks because he was "sick of taking so many medications". He was to be on Eliquis 2.5 mg twice a day. White count 6.8. Hemoglobin 8.0. MCV 122. Platelets 98,000. Sodium 135. Potassium 3.6. Chloride 113. Bicarb 22. Creatinine 1.65. He is currently maintaining good O2 saturations in the mid 90s on 2 L/m per nasal cannula. He's been afebrile. Hemodynamically stable. He has resumed on Eliquis currently at 10 mg twice a day. Aspirin. [facility] protocol is in place. 01 09 2020, the patient is in the intensive care unit. The patient became quite confused and agitated and he went into acute delirium tremens. He was very hard to control. Overnight he received more than 20 mg of Ativan and he was also given Haldol. Earlier this morning he was started on Precedex which controlled his agitation. Currently is resting comfortably in bed. The patient is on Precedex at 0.2 mg per KG per minute. The patient apparently was very much agitated and combative overnight. Current rhythm is sinus. He is resting comfortably in bed. No tremors. No agitation. No seizure activity has been noted. No other significant events overnight. No aspiration. No fever or chills. His white cell count is at 7.8 with a hemoglobin of 8.8. As mentioned earlier, renal function is improving. His daughter points. She is unable to take his anticoagulants regarding his DVT. Otherwise to switch him to Lovenox as the patient is unable to take anything orally for now. The rest of the oral medication will be kept on hold. 01 10 2020, the patient is being gradually wean off the Precedex. Earlier this morning was taken off the Precedex. He is arousable. He is sitting appropriately and somewhat confused. Less agitated. If left alone, he will sleep comfortably. He is still being treated for his underlying delirium tremens. In terms of his IV fluids, switch this patient to D5 normal state rate of 75 mL an hour. The patient is being hydrated adequately. He was also placed on Lovenox as the patient is unable to take oral anticoagulants for now. His neurologic exam is nonfocal. He withdraws all 4 extremities to painful stimulation. He still unable to hold a conversation. No seizure activity has been noted. Neurologist on the case. He remains to have global weakness all 4 extremities. He does have a congested cough. Chest x-ray showing atelectatic changes somnolent infiltrates in lung bases. The patient's white cell count 7.8 and hemoglobin 9.1. Renal function continues to improve with a BUN of 14 and creatinine of 1.1 01/11/2020, the patient has no specific complaints. He has recovered from his delirium tremens. Precedex was discontinued yesterday and the patient is fully awake and alert and following commands and answering questions and he seems to be appropriate at this point in time. Lovenox was also discontinued and the patient was restarted back on his anticoagulation with Eliquis 10 mg by mouth twice a day. He is on D5 normal saline at the rate of 50 mL an hour. No altered mentation. No cough or sputum production. No chest tightness or wheezing. No fever or chills. He is calm and comfortable. The blood work was reviewed. Hemoglobin is at 8.0. Electrodes are all within adequate levels with a component of non-anion gap metabolic acidosis with a bicarb of 19 and a creatinine of 1.39. Objective - Vital Signs Vital signs: Vital Signs Temp 98.1 F 01/11/20 08:00 Pulse 74 01/11/20 10:00 Resp 18 01/11/20 10:00 BP 116/62 01/11/20 10:00 Pulse Ox 98 01/11/20 10:00 Intake & Output 01/10/20 01/11/20 01/11/20 18:59 06:59 18:59 Intake Total 1100 900 525 Output Total 410 534 225 Balance 690 366 300 Weight 95 kg Intake: IV 900 900 425 Dextrose 5%-0.9% NaCl 1, 600 900 325 000 ml @ 50 mls/hr IV . Q20H [facility] Rx#:[id number] Dextrose 5%-0.9% NaCl 1, 300 000 ml @ 75 mls/hr IV . [id number] [facility] Rx#:[id number] Sodium Ferric Gluconat- 100 Sucrose 125 mg In Sodium Chloride 0.9% 100 ml @ 100 mls/hr IVPB DAILY [facility] Rx#:[id number] Oral 200 100 Output: Urine 410 534 225 Other: Voiding Method Indwelling Catheter Indwelling Catheter Indwelling Catheter # Voids 0 # Bowel Movements 2 - Exam General: This is a very pleasant 69-year-old gentleman, on 2 L nasal cannula, sedated, comfortable likely distress, awake and alert and nonacute distress Derm: warm, dry Head: atraumatic, normocephalic, symmetric Eyes: EOMI, no lid lag, anicteric sclera Mouth: no lip lesion, mucus membranes dry Cardiovascular: S1S2 reg, no murmur, positive posterior tibial pulse bilateral, Lungs: CTA bilateral, no rhonchi, no rales , no accessory muscle use Abdominal: soft, nontender to palpation, no guarding, no appreciable organomegaly Ext: no gross muscle atrophy, 3+edema b/l LE R>L, no contractures, and the patient has diminished muscle power and lower eczematous bilaterally in the mot or power is around 3 out of grasp Neuro: CN II-XI grossly intact, + intention tremor, poor coordniation when trying to grrasp things. Unable to do motor and sensory function analysis. The flexible was symmetrical and there is no focal neurological deficit that the patient withdraws to painful fibrillation all 4 extremities. Awake and alert and oriented 3 Psych: Unable to do based on the above - Labs CBC & Chem 7: 01/11/20 05:38 01/11/20 05:38 Labs: Abnormal Lab Results - Last 24 Hours (Table) 01/11/20 01/11/20 Range/Units 05:38 05:38 RBC 1.99 L (4.30-5.90) m/uL Hgb 8.0 L (13.0-17.5) gm/dL Hct 23.9 L (39.0-53.0) % MCV 120.0 H (80.0-100.0) fL MCH 40.1 H (25.0-35.0) pg RDW 17.2 H (11.5-15.5) % Macrocytosis Marked A Sodium 135 L (137-145) mmol/L Chloride 115 H (98-107) mmol/L Carbon Dioxide 19 L (22-30) mmol/L Creatinine 1.39 H (0.66-1.25) mg/dL Calcium 8.0 L (8.4-10.2) mg/dL Assessment and Plan Plan: 1 motor weakness involving lower, is bilaterally, consider underlying neuropathy. The patient has been having frequent falls secondary to this problem 2 alcoholism with delirium tremens, treated in the intensive care unit the patient is back to normal and currently is alert and oriented 3 3 coronary artery disease bypass surgery 4 Peripheral artery disease 5 chronic artery stenosis in the order of 50-69% involving left carotid artery 6 chronic anemia 7 chronic thrombocytopenia with interval improvement of plated count which is up to 64 8 troponin leak 9 chronic kidney disease, stage III, with an acute worsening renal function probably related to intravascular volume depletion/dehydration, the acute decompensation recovered and her most recent creatinine is at 1.39 10 lactic acidosis, improved 11 alcoholism 12 history of CVA involving the left occipital and temporal in addition to right thalamic or carotid infarct 13 diastolic heart failure with increased lower extremity edema 14 remote history of pulmonary embolism 15 DVT of the right lower extremity involving the right proximal and mid superficial femoral vein. Plan D5 normal saline at rate of 50 mL's an hour Provide diet Delirium tremens has been recovered and the patient is currently off Precedex Stop Lovenox and switch this patient adequate regarding the right lower extremity DVT Plated count improved Creatinine is stable at 1.39 Transferred this patient to a medical surgical floor The coronavirus Covid 19 evaluation came back negative We'll continue to follow
--- NOTE | 2020-01-11 15:10 | PN ---
PROGRESS NOTE Patient is seen for followup for acute kidney injury. The patient is maintained on IV fluids at about 50 mL an hour. He has had good urine output. He did receive one dose of Lasix yesterday following which the urine output has picked up. No significant shortness of breath or chest pain. PHYSICAL EXAMINATION: On examination today, blood pressure 101/70, heart rate 93 per minute. He is afebrile. Examination of the heart S1, S2. Examination of the lungs, decreased breath sounds at bases. Upper airway sounds are heard. Abdomen is soft, nontender. Examination of lower extremities shows edema 2+ bilaterally. TIER OVER exam grossly intact. LABS: Show sodium 135, potassium 3.8, chloride 115, BUN 15, serum creatinine 1.39, hemoglobin of 8.0 g/dL. ASSESSMENT: 1. Acute kidney injury, acute tubular necrosis, currently stable. Urine output had dropped but improved with Lasix. Currently maintained on oral Lasix. Patient does have lower extremity edema. I will discontinue the IV fluids and he is encouraged to increase his oral intake. 2. Metabolic acidosis associated with renal failure. 3. Iron deficiency maintained on IV iron. 4. Mild volume overload. Discontinue the IV fluids. PLAN: DC IV fluids in a.m. Continue to encourage increased oral intake. DC IV iron. MMODL / IJN: [id number] /
[2020-01-11] MEDS: ASPIRIN 81 MG PO SCH (20:40)
[2020-01-11] MEDS: ATORVASTATIN 20 MG TAB PO SCH (20:40)
[2020-01-12 05:44] LABS: Anisocytosis Slight; HCT 22.9 % (39.0-53.0); HGB 7.6 gm/dL (13.0-17.5); Hypochromasia Slight; MCHC 33.2 g/dL (31.0-37.0); MCV 120.6 fL (80.0-100.0); Macrocytosis Marked; Mean Platelet Volume 8.4; Platelet Count 353 k/uL (150-450); Poikilocytosis Slight; RDW 17.2 % (11.5-15.5); WBC 6.2 k/uL (3.8-10.6)
[2020-01-12 06:00] LABS: Calcium 8.2 mg/dL (8.4-10.2); Magnesium 1.6 mg/dL (1.6-2.3); Potassium 3.7 mmol/L (3.5-5.1)
[2020-01-12] MEDS ORDERED: POTASSIUM CHLORIDE ER 20 MEQ TAB.ER PO SCH (07:00)
[2020-01-12] MEDS: DEXTROSE 5%-0.9% NACL 1,000 ML IV SCH (07:05)
[2020-01-12] MEDS: PANTOPRAZOLE 40 MG TABLET PO SCH (07:35)
[2020-01-12] MEDS ORDERED: THIAMINE 100 MG TAB PO SCH ×2 (09:00→21:00)
[2020-01-12] MEDS ORDERED: SPIRONOLACTONE 25 MG TAB PO SCH (09:00)
[2020-01-12] MEDS: SODIUM FERRIC GLUCONAT-SUCROSE 125 MG in SODIUM CHLORIDE 0.9% 100 ML IVPB SCH (09:17)
[2020-01-12] MEDS: TAMSULOSIN 0.4 MG CAP.ER.24H PO SCH (09:27)
[2020-01-12] MEDS: METOPROLOL TARTRATE 25 MG TAB PO SCH (09:27)
[2020-01-12] MEDS: APIXABAN 5 MG TAB PO SCH (09:27)
[2020-01-12] MEDS: FUROSEMIDE 40 MG TAB PO SCH (09:27)
[2020-01-12] MEDS: FOLIC ACID 1 MG TAB PO SCH (09:27)
[2020-01-12 09:36] LABS: Anisocytosis Slight; HGB 7.7 gm/dL (13.0-17.5); Hypochromasia Moderate; MCH 39.5 pg (25.0-35.0); MCHC 32.2 g/dL (31.0-37.0); Macrocytosis Marked; Mean Platelet Volume 8.1; Platelet Count 344 k/uL (150-450); RBC 1.96 m/uL (4.30-5.90); RDW 17.1 % (11.5-15.5); WBC 5.7 k/uL (3.8-10.6)
[2020-01-12 09:39] VITALS: TEMP 98.4
[2020-01-12 09:40] LABS: MCV 122.6 fL (80.0-100.0)
--- NOTE | 2020-01-12 09:44 | PN ---
PROGRESS NOTE Mr. Dumont is admitted to the hospital with multiple comorbid conditions including alcoholism, altered mentation. Also, there was a history of some diastolic heart failure. However, he is in sinus rhythm uncomfortable, in the no distress. They were planning him on transferring to rehab. Vitals are stable, JVD 1 cm, no carotid bruit.S1,, S2 heard normally short systolic murmur is evident. Lungs reveal diminished air entry. Abdomen and lower extremity exam unchanged. The patient has multiple comorbid conditions including lactic acidosis which has resolved and alcoholism and also altered mentation with underlying dementia. Cardiac- wall, no overt heart failure. He can be transferred to the rehab facility on current medications. We will see him as needed. MMODL / IJN: [id number] /
[2020-01-12] MEDS ORDERED: Magnesium Replacement Protocol 1 EACH MISC MISCELLANE PRN (10:56)
[2020-01-12 11:00] VITALS: BMI 29.2
[2020-01-12] MEDS: MAGNESIUM SULFATE-D5W PMX 1 GM in DEXTROSE/WATER 1 100ML.BAG IVPB SCH ×2 (11:55→13:43)
[2020-01-12] MEDS ORDERED: amLODIPine 5 MG TAB PO SCH (13:45)
--- NOTE | 2020-01-12 14:31 | P.DS ---
Providers Date of admission: 01/06/20 22:24 Expected date of discharge: 01/12/20 Attending physician: Riki Hastings MD Consults: 01/06/20 22:24 Consult Physician Routine Consulting Provider: Adam Gustafson Consult Reason/Comments: ams Do you want consulting provider notified?: Yes Consult Physician Routine Consulting Provider: Robyn Cedillo Consult Reason/Comments: arf Do you want consulting provider notified?: Yes Consult Physician Urgent Consulting Provider: Sherwin Dale Consult Reason/Comments: icu Do you want consulting provider notified?: Yes 01/07/20 00:47 Consult Physician Routine Consulting Provider: Wade Barry Consult Reason/Comments: exertional dyspnea, elevated trops Do you want consulting provider notified?: Yes [facility] care [facility] Course: Discharge Diagnosis: Delirium Tremens Acute kidney injury on chronic kidney disease III Multiple falls Weakness RIght lower extremity acute DVT Iron deficiency anemia, s/p IV iron Carotid artery diease HTN Thrombocytopenia Elevated troponin due to renal failure. Compensated diastolic CHF Lactic acidosis Hypomagnesemia Hospital Course: Patient is a 69-year-old male with diastolic congestive heart failure, pulmonary embolism, hypertension, coronary artery disease, tobacco abuse, and ongoing alcohol use who presented to the ER due to frequent falls. In the ER he underwent an extensive evaluation. His vital signs were within normal limits on admission. Laboratory analysis showed hemoglobin 9.2, hematocrit 27.1, platelet count 127, VBG showed a normal pH of 7.34, carbon dioxide 15, BUN 22, creatinine 2.83, lactic acid 7.2, magnesium 1.5, and troponin 0.105, BNP mildly elevated at 2060. Chest x-ray showed no acute process but did show chronic changes. Pelvic x-rays showed no acute process. 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 He underwent a CT abdomen and pelvis which showed mild bilateral pulmonary infiltrates probably related inflammatory disease with a small right lower lobe nodule. He was admitted for acute renal failure with generalized weakness. He was started on IV fluids and his diuretics were held. Patient was admitted to the ICU secondary to his lactic acidosis. His lactic acid normalized to less than 2 by the morning of 01/06. He underwent a renal ultrasound which showed no evidence of hydronephrosis. He was seen by urology who felt that he should stay off of diuretics and continue IV fluids bilateral lesser rate. He was seen by cardiology for his positive troponin, troponin was repeated and was down trending. It was felt that his troponin elevation was likely secondary to acute renal failure. He was seen by neurology who felt gait instability likely due to B12 def and thiamine deficiency. CXR increased interstitial markings. Echo with EF 60- 65%, grade 1 diastolic dysfunction. His renal function stabalized. His B 12 level came back high. He started to become agitated, confused, and t achycardic on 01/07 he received multiple doses of ativan and had to be transferred to the ICU. He continued to be agitated and was started on a precedex. He was more oriented and less agitated on 01/09 and precedex was discontinued. He continued to progress well, and confusion improved, but he was still significantly weak. He was determined stable for custodial. Follow-up Dr. Carlos in 2 weeks for neuropathy evaluation. Patient seen and examined at bedside. Doing better today. No additional chest pain or shortness of breath. Edema is better. Upper Extremity pain is better. Vital signs reviewed and stable. General: non toxic, no distress, appears at stated age Derm: warm, dry Head: atraumatic, normocephalic, symmetric Eyes: EOMI, no lid lag, anicteric sclera Mouth: no lip lesion, mucus membranes moist Cardiovascular: S1S2 reg, no murmur, positive posterior tibial pulse bilateral, Lungs: Decreased bs bilateral, no rhonchi, no rales , no accessory muscle use Abdominal: soft, nontender to palpation, no guarding, no appreciable organomegaly Ext: no gross muscle atrophy, 1+ edema, no contractures Neuro: CN II-XI grossly intact, no focal neuro deficits Psych: Alert, oriented, appropriate affect, still with slgiht confusion A total of 35 minutes of time were spent preparing this complex discharge summary . Patient Condition at Discharge: Fair Plan - Discharge Summary Discharge Rx Participant: No New Discharge Prescriptions: New Spironolactone [Aldactone] 25 mg PO DAILY tab Apixaban [Eliquis] 10 mg PO BID tab Tamsulosin [Flomax] 0.4 mg PO PC-BRKFST cap.er.24h Folic Acid 1 mg PO DAILY tab Furosemide [Lasix] 40 mg PO DAILY tab HYDROcodone/APAP 5-325MG [Benedict 5-325] 1 each PO Q6HR PRN #12 tab PRN Reason: Moderate To Severe Pain amLODIPine [Norvasc] 5 mg PO DAILY tab Thiamine [Vitamin B-1] 100 mg PO BID tab Magnesium Oxide [Mag-Ox] 400 mg PO DAILY #30 tablet Continue Aspirin EC [Ecotrin Low Dose] 81 mg PO DAILY Simvastatin 40 mg PO HS Metoprolol Succinate (ER) [Toprol XL] 1 tab PO DAILY Loratadine 10 mg PO DAILY Montelukast [Singulair] 10 mg PO HS Fluticasone Nasal [place] [Flonase Nasal [place]] 2 spray EA NOSTRIL DAILY spr Omeprazole 20 mg PO DAILY Discontinued Apixaban [Eliquis] 5 mg PO BID lisinopriL [Zestril] 5 mg PO DAILY tab metOLazone [Zaroxolyn] 5 mg PO DAILY@0830 Potassium Chloride ER [K-Dur 20] 20 meq PO DAILY Furosemide [Lasix] 40 mg PO BID@0900,1300 Thiamine [Vitamin B-1] 100 mg PO BID HYDROcodone/APAP 10-325MG [Benedict 10-325] 1 tab PO Q6H PRN PRN Reason: Mild To Moderate Pain Cyanocobalamin (Vitamin B-12) [Vitamin B-12] 1,000 mcg PO DAILY Gabapentin [Neurontin] 300 mg PO TID PRN PRN Reason: Pain Discharge Medication List Aspirin EC [Ecotrin Low Dose] 81 mg PO DAILY 09/04/19 [History] Loratadine 10 mg PO DAILY 09/05/19 [History] Metoprolol Succinate (ER) [Toprol XL] 1 tab PO DAILY 09/05/19 [History] Montelukast [Singulair] 10 mg PO HS 09/05/19 [History] Simvastatin 40 mg PO HS 09/05/19 [History] Fluticasone Nasal [place] [Flonase Nasal [place]] 2 spray EA NOSTRIL DAILY spr 09/15/19 [Rx] Omeprazole 20 mg PO DAILY 01/07/20 [History] Apixaban [Eliquis] 10 mg PO BID tab 01/12/20 [Rx] Folic Acid 1 mg PO DAILY tab 01/12/20 [Rx] Furosemide [Lasix] 40 mg PO DAILY tab 01/12/20 [Rx] HYDROcodone/APAP 5-325MG [Benedict 5-325] 1 each PO Q6HR PRN #12 tab 01/12/20 [Rx] Magnesium Oxide [Mag-Ox] 400 mg PO DAILY #30 tablet 01/12/20 [Rx] Spironolactone [Aldactone] 25 mg PO DAILY tab 01/12/20 [Rx] Tamsulosin [Flomax] 0.4 mg PO PC-BRKFST cap.er.24h 01/12/20 [Rx] Thiamine [Vitamin B-1] 100 mg PO BID tab 01/12/20 [Rx] amLODIPine [Norvasc] 5 mg PO DAILY tab 01/12/20 [Rx] Follow up Appointment(s)/Referral(s): Juan Yi DO [Primary Care Provider] - 1-2 days Chelsea Bucio MD [REFERRING] - 2 Weeks Activity/Diet/Wound Care/Special Instructions: Activity: as tolerated fall precautions Up with assist Diet: heart healthy, 2L fluid restriction Special Instructions: BMP in 3 days DX: [facility] Discharge Disposition: TRANSFER TO SNF/ECF
--- NOTE | 2020-01-12 15:03 | P.PN ---
Subjective Progress Note Date: 01/12/20 Principal diagnosis: Alcoholism with delirium tremens and underlying neuropathy. This is a 69-year-old male patient with multiple medical problems and comorbidities. The patient is known to have coronary artery disease, previous bypass surgery, peripheral vascular disease, chronic diastolic heart failure and remote history of pulmonary embolism and is demented on long-term an ticoagulation. The patient has had also previous history of CVA with generalized weakness more so in his lower extremities in addition to frequent falls. He is essentially poor historian. He reports that his ankylosis of the swelling in and same time the legs have been sore and weak and he hasn't been able to ambulate properly. He drinks alcohol on a daily basis and he takes 3 shots of Basil Yap every day, 3 times a day. The patient has had no focal neurological deficit. No seizure activity. No change in his speech. No episodes of syncope. No fever. No chills. No ascending paralysis. He came into the ED and his alcohol level was 35. He was found to be slightly dehydrated with some mild elevation of the renal function knowing that he has a chronic kidney disease. He also had some mild lactic acidosis. Overnight, the patient was monitored. He was given IV fluids. He has a white cell count of 7.2 from this morning with a hemoglobin of 9.5. I also notice a drop in his platelet count from 127 down to 79. His BUN is at 21 with a creatinine of 2.3 and is improved compared to yesterday 9 of yesterday creatinine was at 2.8. The serum bicarbonate of 15 with an anion gap of 12. Lactic acid level was at 7.2 is down to 1.9. He has have a troponin leak with troponin level of 0.1 and 0.09 respectively 2. Her BNP level was 2060. UA was negative. Salicylates, and Ty lenol levels were also negative. CAT scan of the chest abdomen and pelvis was done emergency and it showed a 1 cm nodule disappears segment of the right lower lobe in the right paraspinal region. There was also some mild infiltration of disappears segment of the left lower lobe and some mild subsegmental infiltration of the lateral aspect of the right lower lobe. This was noted to be nonspecific and probably of an inflammatory nature. Ascending aorta is at 3.6 cm. There was a small hiatal hernia. Thoracic and lumbar spine were within normal limits. No intra-abdominal abnormalities. The computed tomography scan of the brain showed some old left occipital an inferior lateral temporal c ortical infarct. Old thalamic lacunar infarct was also seen. The carotid Doppler was ordered which showed a 50-69% stenosis of left internal carotid artery. No significant stenosis involving the right carotid artery. Patient is seen today January [id number] in the selective care unit. He is curre ntly resting comfortably in bed. Awake and alert in no acute distress. He is still having ongoing issues with weakness of his lower extremities. Difficult raising his legs off the bed. Still with some bilateral swelling of her lower extremities. Venous Doppler of the lower extremities revealed intraluminal are noncompressible thrombus within the right proximal and mid superficial femoral vein. Normal flow of the left leg. The patient does admit to having stopped all of his home medication for approximately 2 weeks because he was "sick of taking so many medications". He was to be on Eliquis 2.5 mg twice a day. White count 6.8. Hemoglobin 8.0. MCV 122. Platelets 98,000. Sodium 135. Potassium 3.6. Chloride 113. Bicarb 22. Creatinine 1.65. He is currently maintaining good O2 saturations in the mid 90s on 2 L/m per nasal cannula. He's been afebrile. Hemodynamically stable. He has resumed on Eliquis currently at 10 mg twice a day. Aspirin. [facility] protocol is in place. 01 09 2020, the patient is in the intensive care unit. The patient became quite confused and agitated and he went into acute delirium tremens. He was very hard to control. Overnight he received more than 20 mg of Ativan and he was also given Haldol. Earlier this morning he was started on Precedex which controlled his agitation. Currently is resting comfortably in bed. The patient is on Precedex at 0.2 mg per KG per minute. The patient apparently was very much agitated and combative overnight. Current rhythm is sinus. He is resting comfortably in bed. No tremors. No agitation. No seizure activity has been noted. No other significant events overnight. No aspiration. No fever or chil ls. His white cell count is at 7.8 with a hemoglobin of 8.8. As mentioned earlier, renal function is improving. His daughter points. She is unable to take his anticoagulants regarding his DVT. Otherwise to switch him to Lovenox as the patient is unable to take anything orally for now. The rest of the oral medication will be kept on hold. 01 10 2020, the patient is being gradually wean off the Precedex. Earlier this morning was taken off the Precedex. He is arousable. He is sitting appro priately and somewhat confused. Less agitated. If left alone, he will sleep comfortably. He is still being treated for his underlying delirium tremens. In terms of his IV fluids, switch this patient to D5 normal state rate of 75 mL an hour. The patient is being hydrated adequately. He was also placed on Lovenox as the patient is unable to take oral anticoagulants for now. His neurologic exam is nonfocal. He withdraws all 4 extremities to painful stimulation. He still unable to hold a conversation. No seizure activity has been noted. Neurologist on the case. He remains to have global weakness all 4 extremities. He does have a congested cough. Chest x-ray showing atelectatic changes somnolent infiltrates in lung bases. The patient's white cell count 7.8 and hemoglobin 9.1. Renal function continues to improve with a BUN of 14 and creatinine of 1.1 01/11/2020, the patient has no specific complaints. He has recovered from his delirium tremens. Precedex was discontinued yesterday and the patient is fully awake and alert and following commands and answering questions and he seems to be appropriate at this point in time. Lovenox was also discontinued and the patient was restarted back on his anticoagulation with Eliquis 10 mg by mouth twice a day. He is on D5 normal saline at the rate of 50 mL an hour. No altered mentation. No cough or sputum production. No chest tightness or wheezing. No fever or chills. He is calm and comfortable. The blood work was reviewed. Hemoglobin is at 8.0. Electrodes are all within adequate levels with a component of non-anion gap metabolic acidosis with a bicarb of 19 and a creatinine of 1.39. Reevaluated today on 01/12/20, patient is in the ICU as an overflow, seems to be doing fairly well, stays on oxygen at 3 L. He is in sinus rhythm, blood pressure is 163/86, patient is doing great, asymptomatic. Patient is known to have history of multiple medical problems including coronary artery disease, alcohol and tobacco abuse, history of pulmonary embolism, hypertension, and he presented mostly with frequent falls. Patient was also noted to have acute renal failure and generalized weakness. With lactic acidosis, and this has normalized. Patient required Ativan and later Precedex for symptoms of alcohol withdrawal. Presently the patient is doing great, asymptomatic. Transfer to a assisted is in progress Objective - Vital Signs Vital signs: Vital Signs Temp 98.4 F 01/12/20 11:48 Pulse 94 01/12/20 12:00 Resp 10 L 01/12/20 12:00 BP 150/78 01/12/20 11:48 Pulse Ox 93 L 01/12/20 11:48 Intake & Output 01/11/20 01/12/20 01/12/20 18:59 06:59 18:59 Intake Total 1065 500 350 Output Total 960 1085 625 Balance 105 -585 -275 Weight 95.1 kg 95.1 kg Intake: IV 725 500 350 Dextrose 5%-0.9% NaCl 1, 625 500 250 000 ml @ 50 mls/hr IV . Q20H TAMMY Rx#:[id number] Magnesium Sulfate-D5w Pmx 100 1 gm In Dextrose/Water 1 100ml.bag @ 100 mls/hr IVPB Q1H TAMMY Rx#: [id number] Sodium Ferric Gluconat- 100 Sucrose 125 mg In Sodium Chloride 0.9% 100 ml @ 100 mls/hr IVPB DAILY TAMMY Rx#:[id number] Oral 340 Output: Urine 960 1085 625 Other: Voiding Method Indwelling Catheter Indwelling Catheter Indwelling Catheter # Voids 0 # Bowel Movements 1 - Exam General: Reveals 69-year-old white male in no distress. Head: atraumatic, normocephalic Eyes: PERRLA, EOMI, no icterus. Mouth: Intact mucous membranes. Cardiovascular: Normal S1 and S2, no S3 gallop. Lungs: Symmetrical chest expansion diminished breath sounds at the bases no crackles or rhonchi or wheezes. Abdominal: Soft nontender no megaly no rebound no guarding. Ext: no gross muscle atrophy, 1+ edema, no contractures Neuro: CN II-XI grossly intact, no focal neuro deficits Psych: Alert, oriented, appropriate affect, relatively normal mental status except slow. - Labs CBC & Chem 7: 01/12/20 09:15 01/12/20 05:16 Labs: Abnormal Lab Results - Last 24 Hours (Table) 01/12/20 01/12/20 01/12/20 Range/Units 05:16 05:16 09:15 RBC 1.90 L 1.96 L (4.30-5.90) m/uL Hgb 7.6 L 7.7 L (13.0-17.5) gm/dL Hct 22.9 L 24.0 L (39.0-53.0) % MCV 120.6 H 122.6 H (80.0-100.0) fL MCH 40.0 H 39.5 H (25.0-35.0) pg RDW 17.2 H 17.1 H (11.5-15.5) % Macrocytosis Marked A Marked A Sodium 135 L (137-145) mmol/L Chloride 115 H (98-107) mmol/L Carbon Dioxide 17 L (22-30) mmol/L Creatinine 1.49 H (0.66-1.25) mg/dL Calcium 8.2 L (8.4-10.2) mg/dL Assessment and Plan Assessment: Impression: Alcoholism with delirium tremens. Acute motor weakness involving lower extremities, possible underlying neuropathy. History of coronary artery disease and previous CABG Chronic anemia. Chronic kidney disease stage III History of CVA Remote history of pulmonary embolism and deep vein thrombosis. Recommendation: Continue present supportive care measures Agree with discharge planning to assisted. We will sign off and see when necessary. Time with Patient: Less than 30
[2020-01-12 15:06] VITALS: BP 164/98; RESP 14
[2020-01-12 15:46] VITALS: PULSE 94
--- NOTE | 2020-01-12 16:53 | PN ---
PROGRESS NOTE Patient is seen for followup for acute kidney injury. This morning he appears confused. He is not in any acute distress. Blood pressure was 150/78, heart rate 78 per minute, he is afebrile. Examination of the heart S1, S2. Examination of the lungs, decreased breath sounds at bases. Abdomen is soft, nontender. Examination of the lower extremities shows edema 1+ bilaterally. [employer] exam grossly intact. The patient is confused. He is moving all 4 extremities. LABS: Show sodium 135 from today, potassium 3.7, creatinine 1.49, CO2 was 17, hemoglobin 7.6 g/dL. ASSESSMENT: 1. Acute kidney injury, ATN. Current serum creatinine slightly higher over the next couple of days, most likely related to the drop in hemoglobin. Blood pressures have not been significantly low. Patient is maintained on IV fluids at 50 mL an hour. He is maintained on oral Lasix as well. At this point, if he is eating well. I will discontinue the IV fluids and we can monitor his urine output off Lasix as well. 2. Metabolic acidosis associated with renal failure, now improved. 3. Iron deficiency, maintained on IV iron. 4. Dementia. Patient is slightly more confused today. 5. Chronic diastolic CHF. PLAN: Resume oral sodium bicarb. Hold Lasix and repeat labs in a.m. MMODL / IJN: [id number] /
[2020-01-12] MEDS ORDERED: SODIUM BICARBONATE TAB 650 MG TAB PO SCH (21:00)
== END 2020-01-12 16:45 | DRG 682 ==
LOC: EC 21:32 → 2SICU 22:24 → 3SCARD 01-08 01:12 → 2SICU 01-08 16:46
PROVIDERS: ADMIT Internal Medicine; ATTEND Internal Medicine
DX: N17.0 Acute kidney failure with tubular necrosis (principal); G93.41 Metabolic encephalopathy; E51.9 Thiamine deficiency, unspecified; E87.2 Acidosis; F10.231 Alcohol dependence with withdrawal delirium; I82.411 Acute embolism and thrombosis of right femoral vein; I13.0 Hypertensive heart and chronic kidney disease with heart failure and stage 1 through stage 4 chronic kidney disease, or unspecified chronic kidney disease; I31.3 Pericardial effusion (noninflammatory); I50.32 Chronic diastolic (congestive) heart failure; D50.9 Iron deficiency anemia, unspecified; D53.9 Nutritional anemia, unspecified; D69.6 Thrombocytopenia, unspecified; E53.8 Deficiency of other specified B group vitamins; E83.42 Hypomagnesemia; T50.2X5A Adverse effect of carbonic-anhydrase inhibitors, benzothiadiazides and other diuretics, initial encounter; E86.0 Dehydration; Z20.828 Contact with and (suspected) exposure to other viral communicable diseases; Z78.1 Physical restraint status; F17.210 Nicotine dependence, cigarettes, uncomplicated; G25.2 Other specified forms of tremor; G62.9 Polyneuropathy, unspecified; I73.9 Peripheral vascular disease, unspecified; I25.10 Atherosclerotic heart disease of native coronary artery without angina pectoris; I25.2 Old myocardial infarction; Z86.718 Personal history of other venous thrombosis and embolism; Z79.01 Long term (current) use of anticoagulants; Z86.711 Personal history of pulmonary embolism; R91.1 Solitary pulmonary nodule; Z71.41 Alcohol abuse counseling and surveillance of alcoholic; R26.9 Unspecified abnormalities of gait and mobility; M25.572 Pain in left ankle and joints of left foot; M25.571 Pain in right ankle and joints of right foot; I25.9 Chronic ischemic heart disease, unspecified; S09.90XA Unspecified injury of head, initial encounter; Z91.81 History of falling; R29.6 Repeated falls; I44.0 Atrioventricular block, first degree; I65.22 Occlusion and stenosis of left carotid artery; N18.3 Chronic kidney disease, stage 3 (moderate); W18.30XA Fall on same level, unspecified, initial encounter; Y90.1 Blood alcohol level of 20-39 mg/100 ml; Z79.82 Long term (current) use of aspirin; Z79.899 Other long term (current) drug therapy; Z86.73 Personal history of transient ischemic attack (TIA), and cerebral infarction without residual deficits; Z91.14 Patient's other noncompliance with medication regimen; Z95.1 Presence of aortocoronary bypass graft; Z95.5 Presence of coronary angioplasty implant and graft; R79.89 Other specified abnormal findings of blood chemistry; M47.812 Spondylosis without myelopathy or radiculopathy, cervical region
CPT/HCPCS: 36415; 70450; 71045; 71250; 72125; 72170; 74176; 76770; 80048; 80053; 80061; 80320; 80329; 81001; 82140; 82550; 82553; 82607; 82728; 82803; 83520; 83540; 83550; 83605; 83735; 83880; 84100; 84207; 84484; 85025; 85027; 85610; 85730; 86780; 87086; 87324; 93005; 93306; 93880; 93970; 96361; 96372; 96374; 99291

== ENCOUNTER 2020-11-14 00:45 | Inpatient (IN) | payer MEDICARE ==
--- NOTE | 2020-11-14 01:12 | ED ---
SOB HPI - General Source: patient, EMS Mode of arrival: EMS <Jordyn Hand - Last Filed: 11/14/20 03:15> <Jhon Ritter - Last Filed: 11/14/20 06:48> - General Chief Complaint: Shortness of Breath Stated Complaint: SOB Time Seen by Provider: 11/14/20 00:57 - History of Present Illness Initial Comments: 69-year-old male patient with past history significant for CAD with CABG, CHF, current alcohol abuse non-compliant with home medications, presents to the emergency department today for evaluation of shortness of breath. States he did have left sided chest pain earlier today. States his legs are swollen. Denies any nausea, vomiting, constipation, diarrhea. Denies any urinary symptoms. Patient denies any recent rash, fever, chills, cough, abdominal pain, nausea, vomiting, diarrhea, constipation, back pain, numbness, tingling, dizziness, weakness, hematuria, dysuria, urinary urgency, urinary frequency, headache, visual changes, or any other complaints. (Jordyn Hand) - Related Data Home Medications Medication Instructions Recorded Confirmed Aspirin EC [Ecotrin Low Dose] 81 mg PO DAILY 09/04/19 01/07/20 Loratadine 10 mg PO DAILY 09/05/19 01/07/20 Metoprolol Succinate (ER) [Toprol 1 tab PO DAILY 09/05/19 01/07/20 XL] Montelukast [Singulair] 10 mg PO HS 09/05/19 01/07/20 Simvastatin 40 mg PO HS 09/05/19 01/07/20 Omeprazole 20 mg PO DAILY 01/07/20 01/07/20 Previous Rx's Medication Instructions Recorded Fluticasone Nasal [place] [Flonase 2 spray EA NOSTRIL DAILY spr 09/15/19 Nasal [place]] Apixaban [Eliquis] 10 mg PO BID tab 01/12/20 Folic Acid 1 mg PO DAILY tab 01/12/20 Furosemide [Lasix] 40 mg PO DAILY tab 01/12/20 HYDROcodone/APAP 5-325MG [[place] 1 each PO Q6HR PRN #12 tab 01/12/20 5-325] Magnesium Oxide [Mag-Ox] 400 mg PO DAILY #30 tablet 01/12/20 Spironolactone [Aldactone] 25 mg PO DAILY tab 01/12/20 Tamsulosin [Flomax] 0.4 mg PO [id number] cap.er.24h 01/12/20 Thiamine [Vitamin B-1] 100 mg PO BID tab 01/12/20 amLODIPine [Norvasc] 5 mg PO DAILY tab 01/12/20 Allergies Allergy/AdvReac Type Severity Reaction Status Date / Time No Known Allergies Allergy Verified 11/14/20 00:53 Review of Systems ROS Other: All systems not noted in ROS Statement are negative. <Jordyn Hand - Last Filed: 11/14/20 03:15> ROS Other: All systems not noted in ROS Statement are negative. <Jhon Ritter - Last Filed: 11/14/20 06:48> ROS Statement: Those systems with pertinent positive or pertinent negative responses have been documented in the HPI. Past Medical History Past Medical History: Heart Failure, Hypertension, Myocardial Infarction ([place]), Pulmonary Embolus ([place]) Additional Past Medical History / Comment(s): Chronic kidney disease stage III, multiple falls, chronic anemia, coronary artery disease, previous bypass surgery, peripheral vascular disease, hypertension, previous history of pulmonary embolism Last Myocardial Infarction Date:: UNSURE History of Any Multi-Drug Resistant Organisms: None Reported Past Surgical History: Coronary Bypass/CABG, Heart Catheterization With Stent Past Anesthesia/Blood Transfusion Reactions: No Reported Reaction Date of Last Stent Placement:: UNSURE Past Psychological History: No Psychological Hx Reported Smoking Status: Current every day smoker Past Alcohol Use History: Daily Past Drug Use History: None Reported - Past Family History Mother History Unknown: Yes <Jordyn Hand - Last Filed: 11/14/20 03:15> General Exam General appearance: alert, in no apparent distress, other (Physical well- developed, well-nourished adult male patient in no acute distress. Vital signs upon presentation are temperature 97.9F, pulse 94, respirations 16, blood pressure 83/69, pulse ox 99% on room air.) ENT exam: Present: normal exam, normal oropharynx, mucous membranes moist, other (Mucous membranes) Respiratory exam: Present: normal lung sounds bilaterally. Absent: respiratory distress, wheezes, rales, rhonchi, stridor Cardiovascular Exam: Present: regular rate, normal rhythm, normal heart sounds. Absent: systolic murmur, diastolic murmur, rubs, gallop, clicks GI/Abdominal exam: Present: soft, normal bowel sounds. Absent: distended, tenderness, guarding, rebound, rigid Neurological exam: Present: alert, oriented X3, CN II-XII intact Psychiatric exam: Present: normal affect, normal mood Skin exam: Present: warm, dry, intact, normal color. Absent: rash <Jordyn Hand - Last Filed: 11/14/20 03:15> Course Vital Signs 11/14/20 11/14/20 11/14/20 00:51 01:12 01:17 Temperature 97.9 F Pulse Rate 94 93 Respiratory 30 H 30 H 23 Rate Blood Pressure 83/69 109/71 O2 Sat by Pulse 99 100 Oximetry 11/14/20 11/14/20 02:00 05:00 Temperature Pulse Rate 90 87 Respiratory 17 18 Rate Blood Pressure 134/94 104/56 O2 Sat by Pulse 95 95 Oximetry Medical Decision Making - Lab Data Result diagrams: 11/14/20 01:02 11/14/20 01:02 - EKG Data -: EKG Interpreted by Al - Radiology Data Radiology results: report reviewed, image reviewed <Jordyn Hand - Last Filed: 11/14/20 03:15> - Lab Data Result diagrams: 11/14/20 01:02 11/14/20 01:02 <Jhon Ritter - Last Filed: 11/14/20 06:48> - Medical Decision Making 69-year-old male patient presents to the emergency department today for evaluation of shortness of breath and left sided chest pain. Physical exam did reveal pitting edema to the lower extremities. Lungs clear to auscultation. No chest pain at time of my evaluation. He did seem quite anxious and was hyperventilating. EKG showed signus rhythm, no obvious ST elvation or depression. Labs reviewed and did reveal low hgb 8.8 which is chronic for the patient. Potassium 3.3, creatinine 1.52, lactic acid 5.6, troponin 0.710, BNP 4700. Chest x-ray was negative. He will be given Lovenox injection, aspirin. Admitted to the hospital for further evaluation by cardiology. My attending Dr. Ritter was in to evaluate patient. (Jordyn Hand) I saw this patient in conjunction with the physician medical support assistant. I performed independent history and physical exam. Agree with case management. Case also discussed with cardiology given the minimally elevated troponin. The patient did remain symptom-free following the Ativan. (Jhon Ritter) - Lab Data Lab Results 11/14/20 11/14/20 11/14/20 Range/Units 01:02 01:02 01:02 WBC 6.4 (3.8-10.6) k/uL RBC 1.90 L (4.30-5.90) m/uL Hgb 8.8 L (13.0-17.5) gm/dL Hct 23.5 L (39.0-53.0) % MCV 124.1 H (80.0-100.0) fL MCH 43.7 H (25.0-35.0) pg MCHC 34.9 (31.0-37.0) g/dL RDW 14.8 (11.5-15.5) % Plt Count 199 (150-450) k/uL MPV 8.3 Neutrophils % 70 % Lymphocytes % 22 % Monocytes % 5 % Eosinophils % 1 % Basophils % 0 % Neutrophils # 4.5 (1.3-7.7) k/uL Lymphocytes # 1.4 (1.0-4.8) k/uL Monocytes # 0.3 (0-1.0) k/uL Eosinophils # 0.0 (0-0.7) k/uL Basophils # 0.0 (0-0.2) k/uL Manual Slide Review Performed Poikilocytosis Slight Poikilocytosis (manual Present Macrocytosis Marked A PT 11.6 (9.0-12.0) sec INR 1.1 (<1.2) APTT 24.1 (22.0-30.0) sec Sodium 135 L (137-145) mmol/L Potassium 3.3 L (3.5-5.1) mmol/L Chloride 108 H (98-107) mmol/L Carbon Dioxide 15 L (22-30) mmol/L Anion Gap 12 mmol/L BUN 17 (9-20) mg/dL Creatinine 1.52 H (0.66-1.25) mg/dL Est GFR (CKD-EPI)AfAm 54 (>60 ml/min/1.73 sqM) Est GFR (CKD-EPI)NonAf 46 (>60 ml/min/1.73 sqM) Glucose 89 (74-99) mg/dL Lactic Ac Sepsis Rflx Plasma Lactic Acid John (0.7-2.0) mmol/L Calcium 8.4 (8.4-10.2) mg/dL Magnesium 1.1 L (1.6-2.3) mg/dL Total Bilirubin 1.1 (0.2-1.3) mg/dL AST 28 (17-59) U/L ALT 17 (4-49) U/L Alkaline Phosphatase 37 L (38-126) U/L Troponin I (0.000-0.034) ng/mL NT-Pro-B Natriuret Pep pg/mL Total Protein 5.6 L (6.3-8.2) g/dL Albumin 2.9 L (3.5-5.0) g/dL Blood Type Blood Type Confirm Blood Type Recheck Bld Type Recheck Status Antibody Screen Spec Expiration Date 11/14/20 11/14/20 11/14/20 Range/Units 01:02 01:02 01:02 WBC (3.8-10.6) k/uL RBC (4.30-5.90) m/uL Hgb (13.0-17.5) gm/dL Hct (39.0-53.0) % MCV (80.0-100.0) fL MCH (25.0-35.0) pg MCHC (31.0-37.0) g/dL RDW (11.5-15.5) % Plt Count (150-450) k/uL MPV Neutrophils % % Lymphocytes % % Monocytes % % Eosinophils % % Basophils % % Neutrophils # (1.3-7.7) k/uL Lymphocytes # (1.0-4.8) k/uL Monocytes # (0-1.0) k/uL Eosinophils # (0-0.7) k/uL Basophils # (0-0.2) k/uL Manual Slide Review Poikilocytosis Poikilocytosis (manual Macrocytosis PT (9.0-12.0) sec INR (<1.2) APTT (22.0-30.0) sec Sodium (137-145) mmol/L Potassium (3.5-5.1) mmol/L Chloride (98-107) mmol/L Carbon Dioxide (22-30) mmol/L Anion Gap mmol/L BUN (9-20) mg/dL Creatinine (0.66-1.25) mg/dL Est GFR (CKD-EPI)AfAm (>60 ml/min/1.73 sqM) Est GFR (CKD-EPI)NonAf (>60 ml/min/1.73 sqM) Glucose (74-99) mg/dL Lactic Ac Sepsis Rflx Plasma Lactic Acid John 5.6 H* (0.7-2.0) mmol/L Calcium (8.4-10.2) mg/dL Magnesium (1.6-2.3) mg/dL Total Bilirubin (0.2-1.3) mg/dL AST (17-59) U/L ALT (4-49) U/L Alkaline Phosphatase (38-126) U/L Troponin I 0.710 H* (0.000-0.034) ng/mL NT-Pro-B Natriuret Pep 4700 pg/mL Total Protein (6.3-8.2) g/dL Albumin (3.5-5.0) g/dL Blood Type Blood Type Confirm Blood Type Recheck Bld Type Recheck Status Antibody Screen Spec Expiration Date 11/14/20 11/14/20 11/14/20 Range/Units 01:06 01:07 02:41 WBC (3.8-10.6) k/uL RBC (4.30-5.90) m/uL Hgb (13.0-17.5) gm/dL Hct (39.0-53.0) % MCV (80.0-100.0) fL MCH (25.0-35.0) pg MCHC (31.0-37.0) g/dL RDW (11.5-15.5) % Plt Count (150-450) k/uL MPV Neutrophils % % Lymphocytes % % Monocytes % % Eosinophils % % Basophils % % Neutrophils # (1.3-7.7) k/uL Lymphocytes # (1.0-4.8) k/uL Monocytes # (0-1.0) k/uL Eosinophils # (0-0.7) k/uL Basophils # (0-0.2) k/uL Manual Slide Review Poikilocytosis Poikilocytosis (manual Macrocytosis PT (9.0-12.0) sec INR (<1.2) APTT (22.0-30.0) sec Sodium (137-145) mmol/L Potassium (3.5-5.1) mmol/L Chloride (98-107) mmol/L Carbon Dioxide (22-30) mmol/L Anion Gap mmol/L BUN (9-20) mg/dL Creatinine (0.66-1.25) mg/dL Est GFR (CKD-EPI)AfAm (>60 ml/min/1.73 sqM) Est GFR (CKD-EPI)NonAf (>60 ml/min/1.73 sqM) Glucose (74-99) mg/dL Lactic Ac Sepsis Rflx Y Plasma Lactic Acid John (0.7-2.0) mmol/L Calcium (8.4-10.2) mg/dL Magnesium (1.6-2.3) mg/dL Total Bilirubin (0.2-1.3) mg/dL AST (17-59) U/L ALT (4-49) U/L Alkaline Phosphatase (38-126) U/L Troponin I (0.000-0.034) ng/mL NT-Pro-B Natriuret Pep pg/mL Total Protein (6.3-8.2) g/dL Albumin (3.5-5.0) g/dL Blood Type B Positive Blood Type Confirm B Positive Blood Type Recheck No Previous Record Bld Type Recheck Status CABO Indicated Antibody Screen NEGATIVE Spec Expiration Date 11/17/2020 - 2305 - EKG Data EKG Comments: EKG obtained at 00 53 shows sinus rhythm with premature super ventricular complexes. Ventricular rate is 99, para interval 154, QRS duration 70, QT 366, QTc 469. No evidence of ST elevation or depression. (Jordyn Hand) - Radiology Data 2 views of the chest are obtained. Report was reviewed in its entirety. Impression by Dr. Min shows no active cardiopulmonary disease. There is improved aeration of the lung bases compared to old exam. (Jordyn Hand) Disposition Decision to Admit Reason: Admit from EC Decision Date: 11/14/20 Decision Time: 03:15 <Jordyn Hand - Last Filed: 11/14/20 03:15> <Jhon Ritter - Last Filed: 11/14/20 06:48> Clinical Impression: NSTEMI (non-ST elevated myocardial infarction) Disposition: ADMITTED IP TO THIS HOSP Condition: Serious
--- NOTE | 2020-11-14 01:36 | XR ---
EXAMINATION TYPE: XR chest 2V DATE OF EXAM: 11/14/2020 COMPARISON: 01/10/2020 HISTORY: Difficulty breathing TECHNIQUE: 2 views FINDINGS: There is no heart failure nor confluent pneumonic infiltrate. Costophrenic angles are clear . There are sternal wires. Heart size is normal. There are chest leads. Bony thorax is intact. IMPRESSION: No active cardiopulmonary disease. There is improved aeration of the lung bases compared to old exam.
[2020-11-14 01:40] LABS: Basophils % (A) 0 %; Eosinophils % (A) 1 %; HCT 23.5 % (39.0-53.0); Lymphocytes # (A) 1.4 k/uL (1.0-4.8); Lymphocytes % (A) 22 %; MCV 124.1 fL (80.0-100.0); Macrocytosis Marked; Mean Platelet Volume 8.3; Monocytes # (A) 0.3 k/uL (0-1.0); Monocytes % (A) 5 %; Neutrophils # (A) 4.5 k/uL (1.3-7.7); Neutrophils % (A) 70 %; Platelet Count 199 k/uL (150-450); Poikilocytosis Slight; RDW 14.8 % (11.5-15.5); WBC 6.4 k/uL (3.8-10.6)
[2020-11-14 01:46] LABS: INR 1.1 (<1.2); Partial Thromboplastin Time 24.1 sec (22.0-30.0); Prothrombin Time 11.6 sec (9.0-12.0)
[2020-11-14 01:49] LABS: Albumin 2.9 g/dL (3.5-5.0); Calcium 8.4 mg/dL (8.4-10.2); MCH 43.7 pg (25.0-35.0); MCHC 34.9 g/dL (31.0-37.0); Magnesium 1.1 mg/dL (1.6-2.3); Potassium 3.3 mmol/L (3.5-5.1); Total Bilirubin 1.1 mg/dL (0.2-1.3); Total Protein 5.6 g/dL (6.3-8.2)
[2020-11-14 01:50] LABS: HGB 8.8 gm/dL (13.0-17.5)
[2020-11-14] MEDS ORDERED: LORazepam 2 MG/ML INJ IV STA (01:50)
[2020-11-14 02:09] LABS: Poikilocytosis (M) Present
[2020-11-14] MEDS ORDERED: POTASSIUM CHLORIDE ER 20 MEQ TAB.ER PO STA (02:13)
[2020-11-14] MEDS ORDERED: Magnesium Replacement Protocol 1 EACH MISC MISCELLANE PRN (03:04)
[2020-11-14] MEDS ORDERED: ENOXAPARIN 80 MG/0.8 ML SYRINGE SQ STA (03:10)
[2020-11-14] MEDS ORDERED: MORPHINE SULFATE 4 MG/ML SYRINGE IV PRN (03:11)
[2020-11-14] MEDS ORDERED: NALOXONE 0.4 MG/ML 1 ML VIAL IV PRN (03:11)
[2020-11-14] MEDS ORDERED: ASPIRIN 81 MG PO STA (03:13)
[2020-11-14] MEDS ORDERED: THIAMINE 100 MG/ML 2 ML VIAL IM STA (03:14)
[2020-11-14] MEDS ORDERED: LORazepam 2 MG/ML INJ IV PRN ×3 (03:14)
[2020-11-14] MEDS: MAGNESIUM SULFATE-D5W PMX 1 GM in DEXTROSE/WATER 1 100ML.BAG IVPB SCH ×3 (03:21→06:52)
[2020-11-14] MEDS ORDERED: ASPIRIN 325 MG TAB PO SCH (09:00)
[2020-11-14 10:28] LABS: Calcium 7.9 mg/dL (8.4-10.2); Potassium 3.3 mmol/L (3.5-5.1)
[2020-11-14] MEDS ORDERED: Potassium Replacement Protocol 1 EACH MISC MISCELLANE PRN (10:50)
[2020-11-14] MEDS: POTASSIUM CHLORIDE ER 20 MEQ TAB.ER PO SCH (10:56)
[2020-11-14] MEDS ORDERED: lisinopriL 20 MG TAB PO SCH (12:30)
[2020-11-14] MEDS ORDERED: APIXABAN 5 MG TAB PO SCH (12:30)
[2020-11-14] MEDS: FUROSEMIDE 40 MG TAB PO SCH (12:36)
[2020-11-14] MEDS: METOPROLOL SUCCINATE (ER) 50 MG TAB.ER.24H PO SCH (12:36)
--- NOTE | 2020-11-14 13:13 | P.CRDCN ---
History of Present Illness Consult date: 11/14/20 Consult reason: congestive heart failure History of present illness: The patient is a 69-year-old male with extensive past medical history who fo llows with cardiology in [facility]. The patient presented to the hospital because he "thought he was having a stroke." The patient denies any strokelike symptoms, however states he was just not feeling well and was more short of breath, diaphoretic, and had intermittent chest pains. The patient has a known history of noncompliance and EtOH abuse. The patient was interviewed and examined lying comfortably in bed. He denies any current symptoms, however he has not been up moving around the room. He has been having more swelling in his legs than usual. He states he has been co mpliant with his medications recently and has several ounces of whiskey on a daily basis. DIAGNOSTICS: Chest x-ray shows no active cardiopulmonary disease EKG shows sinus rhythm with frequent PACs Vital signs: Blood pressure 126/72, SpO2 95% on 2 L nasal cannula, respiratory rate 20, pulse rate 77, temp 97.4 Telemetry readings overnight show sinus rhythm with frequent PACs Laboratory data: WBC 6.4, hemoglobin 8.8, hematocrit 23.5, platelet 199, sodium 135, potassium 3.3, BUN 17, creatinine 1.52, lactic acid 5., magnesium 1.1, AST 28, ALT 17, ALT 37, BNP 4700, troponin 0.7, 0.6, 0.6 PAST MEDICAL HISTORY: Coronary artery disease, hypertension, dyslipidemia, pulmonary embolism, EtOH abuse, medication noncompliance REVIEW OF SYSTEMS: No fever or chills. No cough or expectoration. No diap horesis. Patient denies headache, dizziness, blurred vision, double vision. Patient denies any stomach discomfort. No nausea, vomiting. No hematochezia. No hematemesis. Denies any black stools or blood in his stools. Denies dysuria or hematuria. No muscle weakness or numbness. PHYSICAL EXAMINATION: This is a 69-year-old male in no apparent distress at the time of my examination. HEENT: Head is atraumatic, normocephalic. Pupils are equal, round. Sclerae anicteric. Conjunctivae are clear. Mucous membranes of the mouth are moist. Neck is supple. There is no jugular venous distention. No carotid bruit is heard. CHEST EXAMINATION: Lungs are diminished to auscultation. No chest wall tenderness is noted on palpation or with deep breathing. HEART EXAMINATION: Heart rate irregular. S1, S2 heard. No murmurs, gallops or rub. ABDOMEN: Soft, nontender. Bowel sounds are heard. No organomegaly noted. EXTREMITIES: Weak peripheral pulses, unattainable on the right. Mild left lower extremity edema and moderate on the right. NEUROLOGIC EXAMINATION: Patient is awake, alert and oriented x3. FINAL ASSESSMENT AND PLAN: Elevated troponins, flat, no rise and fall pattern consistent with acute cor onary syndrome History of coronary artery disease, maximal medical treatment Elevated BNP, echocardiogram and Doppler study Chronic kidney disease, unknown baseline Hypokalemia Hypomagnesia History of pulmonary embolism History of EtOH abuse History of medication noncompliance LE edema, rule out DVT PLAN: Schedule echocardiogram and doppler study LE venous duplex to rule out DVT Continue low-dose aspirin, Eliquis, and statin Electrolyte supplementation Further recommendations based on clinical course The patient has been seen and evaluated. Plan of care has been reviewed and agreed upon by Dr Kaplan. Past Medical History Past Medical History: Heart Failure, Hypertension, Myocardial Infarction ([place]), Pulmonary Embolus ([place]) Additional Past Medical History / Comment(s): Chronic kidney disease stage III, multiple falls, chronic anemia, coronary artery disease, previous bypass surgery, peripheral vascular disease, hypertension, previous history of pulmonary embolism Last Myocardial Infarction Date:: UNSURE History of Any Multi-Drug Resistant Organisms: None Reported Past Surgical History: Coronary Bypass/CABG, Heart Catheterization With Stent Past Anesthesia/Blood Transfusion Reactions: No Reported Reaction Date of Last Stent Placement:: UNSURE Past Psychological History: No Psychological Hx Reported Smoking Status: Current every day smoker Past Alcohol Use History: Daily Additional Past Alcohol Use History / Comment(s): PT DRINKS 3 SHOTS OF LUPIS POLLARD EVERYDAY Past Drug Use History: None Reported - Past Family History Mother History Unknown: Yes Medications and Allergies Home Medications Medication Instructions Recorded Confirmed Type Aspirin EC [Ecotrin Low Dose] 81 mg PO DAILY 09/04/19 11/14/20 History Metoprolol Succinate (ER) [Toprol 50 mg PO DAILY 09/05/19 11/14/20 History XL] Simvastatin 40 mg PO HS 09/05/19 11/14/20 History Furosemide [Lasix] 40 mg PO DAILY tab 01/12/20 11/14/20 Rx Apixaban [Eliquis] 5 mg PO BID 11/14/20 11/14/20 History amLODIPine [Norvasc] 10 mg PO DAILY 11/14/20 11/14/20 History lisinopriL 20 mg PO DAILY 11/14/20 11/14/20 History Allergies Allergy/AdvReac Type Severity Reaction Status Date / Time No Known Allergies Allergy Verified 11/14/20 10:06 Physical Exam Vitals: Vital Signs Temp Pulse Pulse Resp BP BP Pulse Ox 11/14/20 08:45 97.4 F L 77 20 126/72 100 11/14/20 05:00 87 18 104/56 95 11/14/20 02:00 90 17 134/94 95 11/14/20 01:17 93 23 109/71 100 11/14/20 01:12 30 H 11/14/20 00:51 97.9 F 94 30 H 83/69 99 Intake and Output 11/13/20 11/14/20 11/14/20 22:59 06:59 14:59 Intake Total 10 Balance 10 Intake: IV 10 Invasive Line 1 10 Oral 0 Other: Weight 79.379 kg Results 11/14/20 01:02 11/14/20 08:11 Cardiac Enzymes 11/14/20 11/14/20 11/14/20 Range/Units 01:02 01:02 05:14 AST 28 (17-59) U/L Troponin I 0.710 H* 0.685 H* (0.000-0.034) ng/mL 11/14/20 Range/Units 08:11 AST (17-59) U/L Troponin I 0.647 H* (0.000-0.034) ng/mL Coagulation 11/14/20 Range/Units 01:02 PT 11.6 (9.0-12.0) sec APTT 24.1 (22.0-30.0) sec CBC 11/14/20 Range/Units 01:02 WBC 6.4 (3.8-10.6) k/uL RBC 1.90 L (4.30-5.90) m/uL Hgb 8.8 L (13.0-17.5) gm/dL Hct 23.5 L (39.0-53.0) % Plt Count 199 (150-450) k/uL Comprehensive Metabolic Panel 11/14/20 11/14/20 Range/Units 01:02 08:11 Sodium 135 L 135 L (137-145) mmol/L Potassium 3.3 L 3.3 L (3.5-5.1) mmol/L Chloride 108 H 108 H (98-107) mmol/L Carbon Dioxide 15 L 25 (22-30) mmol/L BUN 17 19 (9-20) mg/dL Creatinine 1.52 H 1.51 H (0.66-1.25) mg/dL Glucose 89 100 H (74-99) mg/dL Calcium 8.4 7.9 L (8.4-10.2) mg/dL AST 28 (17-59) U/L ALT 17 (4-49) U/L Alkaline Phosphatase 37 L (38-126) U/L Total Protein 5.6 L (6.3-8.2) g/dL Albumin 2.9 L (3.5-5.0) g/dL Current Medications Generic Name Dose Route Start Last Admin Trade Name Freq PRN Reason Stop Dose Admin Apixaban 5 mg 11/14/20 12:30 11/14/20 12:36 Apixaban 5 Mg Tab PO 5 mg BID TAMMY Administration Protocol Aspirin 325 mg 11/14/20 09:00 11/14/20 10:57 Aspirin 325 Mg Tab PO Not Given DAILY [facility] Aspirin 81 mg 11/15/20 09:00 Aspirin 81 Mg PO DAILY [facility] Atorvastatin Calcium 20 mg 11/14/20 21:00 Atorvastatin 20 Mg Tab PO HS TAMMY Furosemide 40 mg 11/14/20 12:30 11/14/20 12:36 Furosemide 40 Mg Tab PO 40 mg DAILY TAMMY Administration Lisinopril 20 mg 11/14/20 12:30 11/14/20 12:36 Lisinopril 20 Mg Tab PO 20 mg DAILY TAMMY Administration Lorazepam 1 mg 11/14/20 03:14 Lorazepam 2 Mg/Ml Inj IV Q2HR PRN CIWA 8 or 9 Lorazepam 1 mg 11/14/20 03:14 Lorazepam 2 Mg/Ml Inj IV Q1HR PRN CIWA 10 to 15 Lorazepam 2 mg 11/14/20 03:14 Lorazepam 2 Mg/Ml Inj IV 11/16/20 03:14 Q10M PRN CIWA 16 or higher Metoprolol Succinate 50 mg 11/14/20 12:30 11/14/20 12:36 Metoprolol Succinate (Er) 50 Mg Tab.Er.24h PO 50 mg DAILY TAMMY Administration Miscellaneous Information 1 each 11/14/20 03:04 Magnesium Replacement Protocol 1 Each Misc MISCELLANE DAILY PRN Per Protocol Protocol Miscellaneous Information 1 each 11/14/20 10:50 Potassium Replacement Protocol 1 Each Misc MISCELLANE DAILY PRN Per Protocol Protocol Morphine Sulfate 4 mg 11/14/20 03:11 Morphine Sulfate 4 Mg/Ml Syringe IV Q4HR PRN Severe Pain Naloxone HCl 0.2 mg 11/14/20 03:11 Naloxone 0.4 Mg/Ml 1 Ml Vial IV Q2M PRN Opioid Reversal Thiamine HCl 100 mg 11/14/20 17:30 Thiamine 100 Mg Tab PO BID-W/MEALS TAMMY Intake and Output 11/13/20 11/14/20 11/14/20 22:59 06:59 14:59 Intake Total 10 Balance 10 Intake: IV 10 Invasive Line 1 10 Oral 0 Other: Weight 79.379 kg 11/14/20 01:02 11/14/20 08:11
--- NOTE | 2020-11-14 13:30 | US ---
EXAMINATION TYPE: US venous doppler duplex LE DATE OF EXAM: 11/14/2020 1:10 PM COMPARISON: US 01/07/2020 CLINICAL HISTORY: r/o dvt. History of DVT, weakness, chest pain SIDE PERFORMED: Bilateral TECHNIQUE: The lower extremity deep venous system is examined utilizing real time linear array sonog zain with graded compression, doppler sonography and color-flow sonography. VESSELS IMAGED: Common Femoral Vein Deep Femoral Vein Greater Saphenous Vein * Femoral Vein Popliteal Vein Small Saphenous Vein * Proximal Calf Veins (* superficial vessels) Right Leg: Abnormal compressibility and flow are demonstrated in the imaged deep veins of the right lower extremity from the calf veins to the common femoral vein. Left Leg: Normal compressibility and flow are demonstrated in the imaged deep veins of the left lowe r extremity from the calf veins to the common femoral vein. IMPRESSION: ACUTE ON TOP OF CHRONIC DEEP VEIN THROMBOSIS OF THE RIGHT LOWER EXTREMITY. LEFT LOWER EXTREMITY NEGATIVE FOR DVT.
[2020-11-14] MEDS ORDERED: APIXABAN 5 MG TAB PO STA (15:58)
[2020-11-14] MEDS: THIAMINE 100 MG TAB PO SCH (16:56)
[2020-11-14] MEDS: NITROGLYCERIN OINT 1 INCH/GM PACKET TOPICAL SCH (17:20)
[2020-11-14] MEDS: PANTOPRAZOLE 40 MG/10 ML VIAL IVP SCH (17:21)
[2020-11-14 21:01] LABS: Potassium 3.8 mmol/L (3.5-5.1)
[2020-11-14] MEDS: APIXABAN 5 MG TAB PO SCH (21:40)
[2020-11-14] MEDS: ATORVASTATIN 20 MG TAB PO SCH (21:40)
--- NOTE | 2020-11-15 02:51 | P.HPIM ---
History of Present Illness H&P Date: 11/14/20 Chief Complaint: SOB , chest pain and LE swelling Mr. Dumont is a 69-year-old male with a past medical history of heart failure, hypertension, be, CKD stage III, chronic anemia, coronary artery disease status post CABG, peripheral vascular disease, hypertension coming into the hospital with a chief complaint of difficulty in breathing. Patient states that he has been having left-sided chest pain and also complains of increased swelling of his bilateral lower extremities. Patient states that he is noncompliant in taking his medications including his Xarelto for his history of PE. Patient also mentions about drinking alcohol every day, he drinks 6-8 beers. Patient states that he thought he would be having a stroke as he was feeling short of breath with diaphoresis along with these chest pains. He was complaining some tingling and numbness in his fingers and feet on and off. Patient denies having any fevers chills or rigors. No sick contacts. Denies having any cough. No abdominal pain nausea vomiting or diarrhea. Denies having any dysuria or hematuria. In the ER at the time of admission patient's vital signs temperature 97.9, heart rate 94, tachypneic, blood pressure 83/69 saturating at 99% on room air. Patient had a chest x-ray done showing no evidence of cardiopulmonary process he had an EKG showing sinus tachycardia with premature supraventricular complexes. On reviewing his labs white count of 6.4, hemoglobin 8.8, platelets 199. Sodium 135, potassium 3.3, chloride 108, bicarb 15, BUN 13, creatinine 1.52. Lactic acid at the time of admission 5.6, troponin 0 0.710. Albumin 2.9. Review of Systems REVIEW OF SYSTEMS: CONSTITUTIONAL: No fever, no malaise, no fatigue. HEENT: Positive for mild headache, no neck stiffness, no blurring of vision CARDIOVASCULAR:As per HPI PULMONARY: no cough GASTROINTESTINAL: No abdominal pain nausea vomiting or diarrhea NEUROLOGICAL:no focal weakness of his extremities HEMATOLOGICAL: Denies any bleeding or petechiae. GENITOURINARY: Denies any burning micturition, frequency, or urgency. MUSCULOSKELETAL/RHEUMATOLOGICAL: Denies any joint pain, swelling, or any muscle pain. ENDOCRINE: denies dysuria or hematuria The rest of the 14-point review of systems is negative. Past Medical History Past Medical History: Heart Failure, Hypertension, Myocardial Infarction (CT), Pulmonary Embolus (PE) Additional Past Medical History / Comment(s): Chronic kidney disease stage III, multiple falls, chronic anemia, coronary artery disease, previous bypass surgery, peripheral vascular disease, hypertension, previous history of pulmonary embolism Last Myocardial Infarction Date:: UNSURE History of Any Multi-Drug Resistant Organisms: None Reported Past Surgical History: Coronary Bypass/CABG, Heart Catheterization With Stent Past Anesthesia/Blood Transfusion Reactions: No Reported Reaction Date of Last Stent Placement:: UNSURE Past Psychological History: No Psychological Hx Reported Smoking Status: Current every day smoker Past Alcohol Use History: Daily Additional Past Alcohol Use History / Comment(s): PT DRINKS 3 SHOTS OF LUPIS POLLARD EVERYDAY Past Drug Use History: None Reported - Past Family History Mother History Unknown: Yes Medications and Allergies Home Medications Medication Instructions Recorded Confirmed Type Aspirin EC [Ecotrin Low Dose] 81 mg PO DAILY 09/04/19 11/14/20 History Metoprolol Succinate (ER) [Toprol 50 mg PO DAILY 09/05/19 11/14/20 History XL] Simvastatin 40 mg PO HS 09/05/19 11/14/20 History Furosemide [Lasix] 40 mg PO DAILY tab 01/12/20 11/14/20 Rx Apixaban [Eliquis] 5 mg PO BID 11/14/20 11/14/20 History amLODIPine [Norvasc] 10 mg PO DAILY 11/14/20 11/14/20 History lisinopriL 20 mg PO DAILY 11/14/20 11/14/20 History Allergies Allergy/AdvReac Type Severity Reaction Status Date / Time No Known Allergies Allergy Verified 11/14/20 10:06 Physical Exam Vitals: Vital Signs Temp Pulse Pulse Resp BP BP Pulse Ox 11/14/20 08:45 97.4 F L 77 20 126/72 100 11/14/20 05:00 87 18 104/56 95 11/14/20 02:00 90 17 134/94 95 11/14/20 01:17 93 23 109/71 100 11/14/20 01:12 30 H 11/14/20 00:51 97.9 F 94 30 H 83/69 99 Intake and Output 11/13/20 11/14/20 11/14/20 22:59 06:59 14:59 Intake Total 10 Balance 10 Intake: IV 10 Invasive Line 1 10 Oral 0 Other: Weight 79.379 kg PHYSICAL EXAMINATION: GENERAL: awake, no distress HEENT: Pupils are round and equally reacting to light. EOMI. No scleral icterus. No conjunctival pallor. CARDIOVASCULAR: S1 and S2 present. No murmurs, rubs, or gallops. PULMONARY: Diminished breath sounds in all lung landa, crackles at the left lower lung base. ABDOMEN: Soft, nontender, normal bowel sounds. No guarding or rigidity. MUSCULOSKELETAL: No joint swelling or deformity. EXTREMITIES: bilatreal leg edema NEUROLOGICAL: Gross neurological examination did not reveal any focal deficits. SKIN:No rash Results CBC & Chem 7: 11/14/20 01:02 11/14/20 20:19 Labs: Abnormal Lab Results - Last 24 Hours (Table) 11/14/20 11/14/20 11/14/20 Range/Units 01:02 01:02 01:02 RBC 1.90 L (4.30-5.90) m/uL Hgb 8.8 L (13.0-17.5) gm/dL Hct 23.5 L (39.0-53.0) % MCV 124.1 H (80.0-100.0) fL MCH 43.7 H (25.0-35.0) pg Macrocytosis Marked A Sodium 135 L (137-145) mmol/L Potassium 3.3 L (3.5-5.1) mmol/L Chloride 108 H (98-107) mmol/L Carbon Dioxide 15 L (22-30) mmol/L Creatinine 1.52 H (0.66-1.25) mg/dL Glucose (74-99) mg/dL Plasma Lactic Acid John 5.6 H* (0.7-2.0) mmol/L Calcium (8.4-10.2) mg/dL Magnesium 1.1 L (1.6-2.3) mg/dL Alkaline Phosphatase 37 L (38-126) U/L Troponin I (0.000-0.034) ng/mL Total Protein 5.6 L (6.3-8.2) g/dL Albumin 2.9 L (3.5-5.0) g/dL 11/14/20 11/14/20 11/14/20 Range/Units 01:02 05:14 08:11 RBC (4.30-5.90) m/uL Hgb (13.0-17.5) gm/dL Hct (39.0-53.0) % MCV (80.0-100.0) fL MCH (25.0-35.0) pg Macrocytosis Sodium (137-145) mmol/L Potassium (3.5-5.1) mmol/L Chloride (98-107) mmol/L Carbon Dioxide (22-30) mmol/L Creatinine (0.66-1.25) mg/dL Glucose (74-99) mg/dL Plasma Lactic Acid John (0.7-2.0) mmol/L Calcium (8.4-10.2) mg/dL Magnesium (1.6-2.3) mg/dL Alkaline Phosphatase (38-126) U/L Troponin I 0.710 H* 0.685 H* 0.647 H* (0.000-0.034) ng/mL Total Protein (6.3-8.2) g/dL Albumin (3.5-5.0) g/dL 11/14/20 Range/Units 08:11 RBC (4.30-5.90) m/uL Hgb (13.0-17.5) gm/dL Hct (39.0-53.0) % MCV (80.0-100.0) fL MCH (25.0-35.0) pg Macrocytosis Sodium 135 L (137-145) mmol/L Potassium 3.3 L (3.5-5.1) mmol/L Chloride 108 H (98-107) mmol/L Carbon Dioxide (22-30) mmol/L Creatinine 1.51 H (0.66-1.25) mg/dL Glucose 100 H (74-99) mg/dL Plasma Lactic Acid John (0.7-2.0) mmol/L Calcium 7.9 L (8.4-10.2) mg/dL Magnesium (1.6-2.3) mg/dL Alkaline Phosphatase (38-126) U/L Troponin I (0.000-0.034) ng/mL Total Protein (6.3-8.2) g/dL Albumin (3.5-5.0) g/dL Assessment and Plan Assessment: ASSESSMENT Chest pain Bilateral lower extremity edema History of PE noncompliant with anticoagulation History of coronary artery disease Elevated troponin CKD stage III Chronic anemia Hypokalemia Hypomagnesemia Alcohol abuse History of multiple falls Peripheral vascular disease Nicotine dependence Moderate protein calorie malnutrition Plan: Patient coming in with chest pain, bilateral lower extremity edema noncompliant with his anticoagulation due to history of PE. Patient had a lower extremity Doppler that was positive for acute on chronic DVT of the right lower extremity. Patient will be started on full dose anticoagulation with 10 mg twice daily of Eliquis. Will order an echocardiogram. We will supplement electrolytes. Patient has been restarted on his home medications. Will monitor for alcohol withdrawal symptoms as patient has alcohol dependence. Cardiology has been consulted. Further recommendations to follow depending on the progress of the patient.
[2020-11-15] MEDS: NITROGLYCERIN OINT 1 INCH/GM PACKET TOPICAL SCH ×3 (05:57→16:03)
[2020-11-15] MEDS: THIAMINE 100 MG TAB PO SCH ×2 (06:52→16:14)
[2020-11-15] MEDS ORDERED: lisinopriL 10 MG TAB PO SCH (09:00)
[2020-11-15] MEDS: ASPIRIN 81 MG PO SCH (09:51)
[2020-11-15] MEDS: APIXABAN 5 MG TAB PO SCH (09:51)
[2020-11-15] MEDS: FUROSEMIDE 40 MG TAB PO SCH (09:51)
[2020-11-15] MEDS: METOPROLOL SUCCINATE (ER) 50 MG TAB.ER.24H PO SCH (09:51)
[2020-11-15] MEDS: PANTOPRAZOLE 40 MG/10 ML VIAL IVP SCH (09:52)
--- NOTE | 2020-11-15 10:51 | P.PN ---
Subjective Progress Note Date: 11/15/20 The patient was interviewed and examined lying comfortably in bed. He states he does feel some chest pain with coughing. He denies any chest pressure. No palpitations, dizziness, or lightheadedness. He denies any shortness of breath at rest. Positive for pain in his right lower extremity. Lower extremity venous Doppler shows acute on chronic right lower extremity DVT GENERAL: Well-appearing, well-nourished and in no acute distress. NECK: Supple without JVD or thyromegaly. LUNGS: Breath sounds diminished to auscultation bilaterally. Respiration equal and unlabored. No wheezes or rhonchi HEART: Regular rate and rhythm. Soft systolic murmur. No rubs or gallops. S1 and S2 heard. EXTREMITIES: Normal range of motion. Mild edema, worse on the right. No clubbing or cyanosis. VITALS: Blood pressure 93/54, pulse rate 71, respiratory rate 19, temp 97.9F, SpO2 99% on 2 L nasal cannula TELEMETRY: Sinus rhythm in the mid 60s IMPRESSION: Elevated troponin, flat, no rise and fall pattern consistent with acute coronary syndrome History of coronary artery disease, on maximal medical treatment Elevated BNP, echocardiogram pending Chronic kidney disease, unknown baseline Deep vein thrombosis, acute on chronic and right lower extremity History of pulmonary embolism History of EtOH abuse History of medication noncompliance PLAN: Recommend CT of the chest/VQ scan to rule out pulmonary emboli; defer to primary team Continue maximal medical treatment for coronary artery disease; lipid profile pending Discussed the importance of compliance with his anticoagulation; patient states he is noncompliant leading up to his hospitalization Further recommendations will be based on clinical course The patient has been seen and evaluated. Plan of care has been reviewed and agreed upon by Dr Kaplan. Objective - Vital Signs Vital signs: Vital Signs Temp 97.9 F 11/15/20 08:10 Pulse 71 11/15/20 08:10 Resp 19 11/15/20 08:10 BP 93/54 11/15/20 08:10 Pulse Ox 99 11/15/20 08:10 Intake & Output 11/14/20 11/15/20 11/15/20 18:59 06:59 18:59 Intake Total 1460 240 Output Total 1100 440 Balance 360 -440 240 Weight 78.5 kg Intake: IV 20 Invasive Line 1 20 Oral 1440 240 Output: Urine 1100 440 Other: Voiding Method Urinal # Voids 1 - Labs CBC & Chem 7: 11/14/20 01:02 11/14/20 20:19
--- NOTE | 2020-11-15 11:00 | ECHOF ---
Referral Reason:NSTEMI MEASUREMENTS -------- HEIGHT: 180.3 cm WEIGHT: 78.5 kg BP: 102/60 RVIDd: 3.7 cm (< 3.3) IVSd: 1.4 cm (0.6 - 1.1) LVIDd: 3.3 cm (3.9 - 5.3) LVPWd: 1.4 cm (0.6 - 1.1) IVSs: 1.7 cm LVIDs: 2.6 cm LVPWs: 2.1 cm LA Diam: 3.6 cm (2.7 - 3.8) LAESV Index (A-L): 28.76 ml/m Ao Diam: 3.4 cm (2.0 - 3.7) MV EXCURSION: 13.189 mm (> 18.000) MV EF SLOPE: 54 mm/s (70 - 150) EPSS: 0.8 cm MV E Dorian: 1.16 m/s MV DecT: 246 ms MV A Dorian: 0.84 m/s MV E/A Ratio: 1.37 FINDINGS -------- Sinus rhythm. This was a technically adequate study. The left ventricular size is normal. There is mild concentric left ventricular hypertrophy. Overa ll left ventricular systolic function is normal with, an EF between 55 - 60 %. The right ventricle is mildly enlarged. Normal LA size by volume 22+/-6 ml/m2. The right atrial size is normal. Interatrial and interventricular septum intact. Aortic valve is trileaflet and is mildly thickened. The mitral valve is normal. There is trace mitral regurgitation. The tricuspid valve appears structurally normal. Trace tricuspid regurgitation present. Unable to estimate RVSP due to inadequate TR jet spectral doppler profile. Trace/mild (physiologic) pulmonic regurgitation. The aortic root size is normal. IVC Not well visulized. There is no pericardial effusion. CONCLUSIONS -------- 1. There is mild concentric left ventricular hypertrophy. 2. Overall left ventricular systolic function is normal with, an EF between 55 - 60 %. 3. The right ventricle is mildly enlarged. 4. Normal LA size by volume 22+/-6 ml/m2. 5. There is trace mitral regurgitation. 6. Trace tricuspid regurgitation present. 7. Trace/mild (physiologic) pulmonic regurgitation. 8. There is no pericardial effusion. SUPERINTENDENT TESTS: Antonia Elise RDCS
[2020-11-15 15:13] LABS: Chol/HDL Ratio 2.15; LDL Cholesterol,Calculated 27.2 mg/dL (0.0-131.0); VLDL Calculation 10.8 mg/dL (5.00-40.00)
[2020-11-15 15:51] LABS: HCT 20.8 % (39.0-53.0); MCHC 35.1 g/dL (31.0-37.0); MCV 125.5 fL (80.0-100.0); Macrocytosis Marked; Platelet Count 160 k/uL (150-450); RBC 1.66 m/uL (4.30-5.90); RDW 14.7 % (11.5-15.5); WBC 4.5 k/uL (3.8-10.6)
[2020-11-15 16:01] LABS: HGB 7.3 gm/dL (13.0-17.5); MCH 44.1 pg (25.0-35.0)
[2020-11-15 16:04] LABS: Albumin 2.4 g/dL (3.5-5.0); Potassium 4.4 mmol/L (3.5-5.1); Total Bilirubin 0.5 mg/dL (0.2-1.3); Total Protein 4.8 g/dL (6.3-8.2)
[2020-11-15] MEDS: HYDROcodone/APAP 5-325MG 1 EACH TAB PO PRN (16:14)
--- NOTE | 2020-11-15 17:57 | NM ---
EXAMINATION TYPE: NM pul vent and perfuse DATE OF EXAM: 11/15/2020 COMPARISON: NONE HISTORY: Short of breath TECHNIQUE: Utilizing inhalation of 36.7 mCi Tc 99m DTPA aerosol and intravenous injection of 4.74 mC i of Tc 99m MAA, ventilation and perfusion images are acquired post injection in multiple projections . FINDINGS: There is segmental sized matching defect in the superior segment of the left lower lobe. There are mu ltiple subsegmental matching defects in the right lower lobe. The chest x-ray yesterday shows no pulm onary consolidation. There is mild pulmonary hyperinflation suggestive of some degree of COPD. There is some matching linear defect along the major fissures bilaterally. IMPRESSION: Normal double matching segmental and subsegmental defects suggestive of airway disease. No ventilatio n/perfusion mismatch. There is intermediate probability of pulmonary embolism.
[2020-11-15] MEDS ORDERED: HEPARIN SODIUM 1,000 UN/ML (10ML VL) IV PRN (18:00)
--- NOTE | 2020-11-15 18:10 | P.PN ---
Progress Note - Text Progress Note Date: 11/15/20 Patient was off the unit for a VQ scan. Chart reviewed, discussed with Nursing. Details of the case reviewed with Dr. March. Recommendation is for low intensity heparin drip without bolus due to acute on chronic DVT in the right lower extremity just diagnosed, close monitoring of Hgb. Baseline hemoglobin is in the 8, low 9 range. Patient is acutely ill and this may be affecting counts further. Chronic kidney disease is noted as well. If bleeding persists or progresses recommendation will be for IVC filter insertion. Nursing reported that a CBC was ordered when on the unit at 1800, pending that result. CBC for midnight and then again at 5 AM. Transfuse for hemoglobin less than 7. If persistent hematuria consider consult to Urology We will see patient in formal consult in the a.m.
[2020-11-15 18:50] LABS: INR 1.1 (<1.2); Partial Thromboplastin Time 28.7 sec (22.0-30.0); Prothrombin Time 11.2 sec (9.0-12.0)
[2020-11-15] MEDS: HEPARIN SOD,PORK IN 0.45% NACL 25,000 UNIT in 0.45% NACL 1 250ML.BAG IV SCH (19:04)
[2020-11-15] MEDS: ATORVASTATIN 20 MG TAB PO SCH (22:19)
[2020-11-16] MEDS: NITROGLYCERIN OINT 1 INCH/GM PACKET TOPICAL SCH ×2 (00:20→09:05)
[2020-11-16 00:34] LABS: HCT 21.5 % (39.0-53.0); HGB 7.2 gm/dL (13.0-17.5); MCHC 33.7 g/dL (31.0-37.0); Mean Platelet Volume 8.3; Platelet Count 167 k/uL (150-450); RBC 1.64 m/uL (4.30-5.90); RDW 15.1 % (11.5-15.5); WBC 4.8 k/uL (3.8-10.6)
[2020-11-16 00:50] LABS: MCH 44.2 pg (25.0-35.0); MCV 131.3 fL (80.0-100.0); Macrocytosis Marked
[2020-11-16] MEDS: HYDROcodone/APAP 5-325MG 1 EACH TAB PO PRN ×2 (06:43→18:32)
[2020-11-16] MEDS: PANTOPRAZOLE 40 MG TABLET PO SCH (06:43)
[2020-11-16] MEDS: THIAMINE 100 MG TAB PO SCH ×2 (06:43→16:57)
[2020-11-16 07:58] LABS: Basophils % (A) 0 %; Eosinophils # (A) 0.1 k/uL (0-0.7); Eosinophils % (A) 2 %; HCT 21.5 % (39.0-53.0); HGB 7.8 gm/dL (13.0-17.5); Lymphocytes # (A) 1.6 k/uL (1.0-4.8); Lymphocytes % (A) 26 %; MCHC 36.1 g/dL (31.0-37.0); Macrocytosis Marked; Monocytes # (A) 0.3 k/uL (0-1.0); Monocytes % (A) 6 %; Neutrophils # (A) 3.9 k/uL (1.3-7.7); Neutrophils % (A) 65 %; Platelet Count 196 k/uL (150-450); Poikilocytosis Slight; RBC 1.72 m/uL (4.30-5.90); RDW 14.9 % (11.5-15.5); WBC 6.1 k/uL (3.8-10.6)
[2020-11-16 08:08] LABS: INR 1.1 (<1.2); Partial Thromboplastin Time 64.4 sec (22.0-30.0); Prothrombin Time 11.4 sec (9.0-12.0)
[2020-11-16 08:09] LABS: MCH 45.2 pg (25.0-35.0)
[2020-11-16 08:11] LABS: MCV 125.1 fL (80.0-100.0)
[2020-11-16 08:18] LABS: Albumin 2.6 g/dL (3.5-5.0); Calcium 8.1 mg/dL (8.4-10.2); Potassium 3.7 mmol/L (3.5-5.1); Total Bilirubin 0.5 mg/dL (0.2-1.3); Total Protein 5.1 g/dL (6.3-8.2)
[2020-11-16] MEDS: ASPIRIN 81 MG PO SCH (08:43)
[2020-11-16] MEDS: METOPROLOL SUCCINATE (ER) 50 MG TAB.ER.24H PO SCH (09:05)
[2020-11-16] MEDS: FUROSEMIDE 40 MG TAB PO SCH (09:05)
[2020-11-16 12:47] LABS: Folate, Serum 1.4 ng/mL
--- NOTE | 2020-11-16 13:11 | P.PN ---
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 It is noted that the patient has a history of EtOH abuse and noncompliance with his medications. Patient examined this more at the bedside. Patient denies chest pain or pressure. He denies shortness of breath. He reports feeling "lousy". He denies dizziness or lightheadedness. Telemetry reveals sinus mechanism. Patient was hypotensive this morning with a blood pressure of 84/43. Patient's metoprolol and Lasix were held. Echocardiogram completed revealed ejection fraction 55-60%, trace mitral regurgitation, and trace tricuspid regurgitation. Patient underwent VQ scan revealing an immediate probability of PE. Patient is currently on IV heparin for acute on chronic right lower extremity DVT. PHYSICAL EXAM: VITAL SIGNS: Reviewed. GENERAL: Well-developed in no acute distress. NECK: Supple. No JVD or thyromegaly LUNGS: Respirations even and unlabored. Lungs diminished to auscultation bilaterally. HEART: Regular rate and rhythm. S1 and S2 heard. EXTREMITIES: Normal range of motion. No clubbing or cyanosis. Peripheral pulses intact. Trace bilateral lower extremity edema ASSESSMENT: Acute on chronic right lower extremity DVT Coronary artery disease Chronic kidney disease Abnormal troponins, secondary to CKD History of PE History of alcohol abuse History of medication noncompliance Hypotension PLAN: Continue current cardiac medications Will defer anticoagulation to hematology, who is following patient during hospitalization as well Monitor blood pressure. Hold medications for SBP less than 90 DC nitro paste Further recommendations pending patient course Nurse practitioner note has been reviewed by physician. Signing provider agrees with the documented findings, assessment, and plan of care. Objective - Vital Signs Vital signs: Vital Signs Temp 97.5 F L 11/16/20 12:02 Pulse 56 L 11/16/20 12:02 Resp 16 11/16/20 12:02 BP 105/57 11/16/20 12:02 Pulse Ox 91 L 11/16/20 12:02 Intake & Output 11/15/20 11/16/20 11/16/20 18:59 06:59 18:59 Intake Total 720 55.264 240 Output Total 300 800 Balance 420 -744.736 240 Weight 80.5 kg Intake: Intake, IV Titration 55.264 Amount Heparin Sod,Pork in 0.45% 55.264 NaCl 25,000 unit In 0.45 % NaCl 1 250ml.bag @ 12 UNITS/KG/HR 9.42 mls/hr IV .Q24H [facility] Rx#: [id number] Oral 720 240 Output: Urine 300 800 Other: Voiding Method Urinal Urinal Urinal # Voids 1 - Labs CBC & Chem 7: 11/16/20 07:37 11/16/20 07:37 Labs: Abnormal Lab Results - Last 24 Hours (Table) 11/15/20 11/15/20 11/15/20 Range/Units 06:34 15:39 15:39 RBC 1.66 L (4.30-5.90) m/uL Hgb 7.3 L D (13.0-17.5) gm/dL Hct 20.8 L (39.0-53.0) % MCV 125.5 H (80.0-100.0) fL MCH 44.1 H (25.0-35.0) pg Macrocytosis Marked A APTT (22.0-30.0) sec Sodium 136 L (137-145) mmol/L BUN 23 H (9-20) mg/dL Creatinine 1.73 H (0.66-1.25) mg/dL Glucose 117 H (74-99) mg/dL Calcium 8.0 L (8.4-10.2) mg/dL Alkaline Phosphatase 33 L (38-126) U/L Total Protein 4.8 L (6.3-8.2) g/dL Albumin 2.4 L (3.5-5.0) g/dL HDL Cholesterol 33.0 L (40.0-60.0) mg/dL 11/16/20 11/16/20 11/16/20 Range/Units 00:14 00:14 07:37 RBC 1.64 L 1.72 L (4.30-5.90) m/uL Hgb 7.2 L 7.8 L (13.0-17.5) gm/dL Hct 21.5 L 21.5 L (39.0-53.0) % MCV 131.3 H D 125.1 H D (80.0-100.0) fL MCH 44.2 H 45.2 H (25.0-35.0) pg Macrocytosis Marked A Marked A APTT 87.9 H (22.0-30.0) sec Sodium (137-145) mmol/L BUN (9-20) mg/dL Creatinine (0.66-1.25) mg/dL Glucose (74-99) mg/dL Calcium (8.4-10.2) mg/dL Alkaline Phosphatase (38-126) U/L Total Protein (6.3-8.2) g/dL Albumin (3.5-5.0) g/dL HDL Cholesterol (40.0-60.0) mg/dL 11/16/20 11/16/20 Range/Units 07:37 07:37 RBC (4.30-5.90) m/uL Hgb (13.0-17.5) gm/dL Hct (39.0-53.0) % MCV (80.0-100.0) fL MCH (25.0-35.0) pg Macrocytosis APTT 64.4 H (22.0-30.0) sec Sodium 136 L (137-145) mmol/L BUN 22 H (9-20) mg/dL Creatinine 1.71 H (0.66-1.25) mg/dL Glucose (74-99) mg/dL Calcium 8.1 L (8.4-10.2) mg/dL Alkaline Phosphatase 35 L (38-126) U/L Total Protein 5.1 L (6.3-8.2) g/dL Albumin 2.6 L (3.5-5.0) g/dL HDL Cholesterol (40.0-60.0) mg/dL
[2020-11-16 14:51] LABS: % Iron Saturation 28.65 (15.00-50.00)
[2020-11-16 14:57] LABS: Ferritin 214.2 ng/mL (22.0-322.0)
--- NOTE | 2020-11-16 16:16 | P.CONS ---
History of Present Illness - Reason for Consult Consult date: 11/16/20 GI bleed, DVT Requesting physician: Amaris Fam - Chief Complaint NSTEMI - History of Present Illness Mr. Dumont has PMH including CHF, HTN, CKD, anemia, CAD s/p CABG, admitted for difficulty in breathing, chest pain and BLE swelling associated diaphoresis. H as not been taking medications as prescribed, he is supposed to be on Xarelto for his history of PE. He reports daily ETOH consumption. We have been asked to see pt for DVT needing anticoagulation and GI bleeding. Anemia and CKD are noted in this medical record as far back as 1 year ago, baseline Hgb 8-9 range. On presentation UA and BC +, acute on chronic RLE DVT reported, VQ scan intermediate probability of PE. No c/o of gross bleeding, heparin drip was started yesterday with close Hgb monitoring, stable today. Review of Systems 10 point ROS is neg except as stated in HPI Past Medical History Past Medical History: Heart Failure, Hypertension, Myocardial Infarction ([place]), Pulmonary Embolus ([place]) Additional Past Medical History / Comment(s): Chronic kidney disease stage III, multiple falls, chronic anemia, coronary artery disease, previous bypass surgery, peripheral vascular disease, hypertension, previous history of pulmonary embolism Last Myocardial Infarction Date:: UNSURE History of Any Multi-Drug Resistant Organisms: None Reported Past Surgical History: Coronary Bypass/CABG, Heart Catheterization With Stent Past Anesthesia/Blood Transfusion Reactions: No Reported Reaction Date of Last Stent Placement:: UNSURE Past Psychological History: No Psychological Hx Reported Smoking Status: Current every day smoker Past Alcohol Use History: Daily Additional Past Alcohol Use History / Comment(s): PT DRINKS 3 SHOTS OF [employer] EVERYDAY Past Drug Use History: None Reported - Past Family History Mother History Unknown: Yes Medications and Allergies Home Medications Medication Instructions Recorded Confirmed Type Aspirin EC [Ecotrin Low Dose] 81 mg PO DAILY 09/04/19 11/14/20 History Metoprolol Succinate (ER) [Toprol 50 mg PO DAILY 09/05/19 11/14/20 History XL] Simvastatin 40 mg PO HS 09/05/19 11/14/20 History Furosemide [Lasix] 40 mg PO DAILY tab 01/12/20 11/14/20 Rx Apixaban [Eliquis] 5 mg PO BID 11/14/20 11/14/20 History amLODIPine [Norvasc] 10 mg PO DAILY 11/14/20 11/14/20 History lisinopriL 20 mg PO DAILY 11/14/20 11/14/20 History Allergies Allergy/AdvReac Type Severity Reaction Status Date / Time No Known Allergies Allergy Verified 11/14/20 10:06 Physical Exam Vitals: Vital Signs Temp Pulse Pulse Resp BP BP Pulse Ox 11/16/20 12:02 97.5 F L 56 L 16 105/57 91 L 11/16/20 08:41 97.8 F 62 16 84/43 80/40 96 11/16/20 03:56 97.6 F 59 L 18 89/53 96 11/16/20 00:00 97.9 F 60 18 94/56 96 11/15/20 20:00 97.5 F L 59 L 16 96/53 98 11/15/20 16:12 97.7 F 60 15 97/60 96 Intake and Output 11/16/20 11/16/20 11/16/20 06:59 14:59 22:59 Intake Total 55.264 360 Output Total 400 Balance -344.736 360 Intake: Intake, IV Titration 55.264 Amount Heparin Sod,Pork in 0.45% 55.264 NaCl 25,000 unit In 0.45 % NaCl 1 250ml.bag @ 12 UNITS/KG/HR 9.42 mls/hr IV .Q24H [facility] Rx#: [id number] Oral 360 Output: Urine 400 Other: Voiding Method Urinal Urinal # Voids 1 Weight 80.5 kg - Constitutional General appearance: average body habitus, cooperative, no acute distress - EENT Eyes: anicteric sclerae, EOMI ENT: hearing grossly normal, normal oropharynx - Neck Neck: no lymphadenopathy - Respiratory Respiratory: bilateral: CTA - Cardiovascular Rhythm: regular Heart sounds: normal: S1, S2 Abnormal Heart Sounds: no systolic murmur, no diastolic murmur, no rub, no S3 Gallop, no S4 Gallop, no click, no other leg Peripheral Edema: bilateral: Trace - Gastrointestinal General gastrointestinal: no absent bowel sounds, no decreased bowel sounds, no distended, no hepatomegaly, no hyperactive bowel sounds, normal bowel sounds, no organomegaly, no rigid, no scaphoid, soft, no splenomegaly, no tenderness, no umbilical hernia, no ventral hernia - Integumentary Integumentary: pale - Neurologic Neurologic: CNII-XII intact - Musculoskeletal Musculoskeletal: strength equal bilaterally - Psychiatric Psychiatric: A&O x's 3, appropriate affect, intact judgment & insight Results CBC & Chem 7: 11/16/20 07:37 11/16/20 07:37 Labs: Abnormal Lab Results - Last 24 Hours (Table) 11/15/20 11/15/20 11/16/20 Range/Units 15:39 15:39 00:14 RBC 1.66 L 1.64 L (4.30-5.90) m/uL Hgb 7.3 L D 7.2 L (13.0-17.5) gm/dL Hct 20.8 L 21.5 L (39.0-53.0) % MCV 125.5 H 131.3 H D (80.0-100.0) fL MCH 44.1 H 44.2 H (25.0-35.0) pg Macrocytosis Marked A Marked A APTT (22.0-30.0) sec Sodium 136 L (137-145) mmol/L BUN 23 H (9-20) mg/dL Creatinine 1.73 H (0.66-1.25) mg/dL Glucose 117 H (74-99) mg/dL Calcium 8.0 L (8.4-10.2) mg/dL Iron (65-175) ug/dL TIBC (228-460) ug/dL Alkaline Phosphatase 33 L (38-126) U/L Total Protein 4.8 L (6.3-8.2) g/dL Albumin 2.4 L (3.5-5.0) g/dL 11/16/20 11/16/20 11/16/20 Range/Units 00:14 07:37 07:37 RBC 1.72 L (4.30-5.90) m/uL Hgb 7.8 L (13.0-17.5) gm/dL Hct 21.5 L (39.0-53.0) % MCV 125.1 H D (80.0-100.0) fL MCH 45.2 H (25.0-35.0) pg Macrocytosis Marked A APTT 87.9 H 64.4 H (22.0-30.0) sec Sodium (137-145) mmol/L BUN (9-20) mg/dL Creatinine (0.66-1.25) mg/dL Glucose (74-99) mg/dL Calcium (8.4-10.2) mg/dL Iron (65-175) ug/dL TIBC (228-460) ug/dL Alkaline Phosphatase (38-126) U/L Total Protein (6.3-8.2) g/dL Albumin (3.5-5.0) g/dL 11/16/20 11/16/20 Range/Units 07:37 07:37 RBC (4.30-5.90) m/uL Hgb (13.0-17.5) gm/dL Hct (39.0-53.0) % MCV (80.0-100.0) fL MCH (25.0-35.0) pg Macrocytosis APTT (22.0-30.0) sec Sodium 136 L (137-145) mmol/L BUN 22 H (9-20) mg/dL Creatinine 1.71 H (0.66-1.25) mg/dL Glucose (74-99) mg/dL Calcium 8.1 L (8.4-10.2) mg/dL Iron 53 L (65-175) ug/dL TIBC 185 L (228-460) ug/dL Alkaline Phosphatase 35 L (38-126) U/L Total Protein 5.1 L (6.3-8.2) g/dL Albumin 2.6 L (3.5-5.0) g/dL Comments: VQ scan report reviewed Chest x-ray: report reviewed Venous US: report reviewed Assessment and Plan (1) Macrocytic anemia Narrative/Plan: No specific nutrition deficiency from labs checked so far-iron sat and ferritin adequate. Review of med list not significant for medications associated with causing macrocytosis. MMA ordered to see if possibly B12 functional absorption problem. Suspect marrow damage r/t chronic ETOH use. Will complete work up with final recs Transfuse for Hgb <7 unless symptomatic Current Visit: Yes Status: Acute Priority: High Code(s): D53.9 - NUTRITIONAL ANEMIA, UNSPECIFIED SNOMED Code(s): 03849718 (2) DVT (deep venous thrombosis) Narrative/Plan: Pt has acute on chronic DVT, he is not able to give good history as to the cause of his initial clot (provoked vs unprovoked), unable to find cause from chart review. Initial unprovoked clot. Current Visit: Yes Status: Acute Priority: High Code(s): I82.409 - ACUTE EMBOLISM AND THOMBOS UNSP DEEP VN UNSP LOWER EXTREMITY SNOMED Code(s): 432935665 Plan: CT CAP with oral contrast to evaluate for underlying malignancy Attests: I have seen and examined pt, performed H&P and developed impression and plan of care. Discussed with dictator, agree with documentation. Documented as a scribe.
[2020-11-16] MEDS ORDERED: IOPAMIDOL CONTRAST (ORAL USE) VIAL PO PRN (16:17)
[2020-11-16] MEDS: HEPARIN SOD,PORK IN 0.45% NACL 25,000 UNIT in 0.45% NACL 1 250ML.BAG IV SCH (16:58)
[2020-11-16] MEDS ORDERED: POTASSIUM CHLORIDE ER 20 MEQ TAB.ER PO SCH (17:00)
--- NOTE | 2020-11-16 19:16 | CT ---
EXAMINATION TYPE: CT ChestAbdPelvis wo con DATE OF EXAM: 11/16/2020 COMPARISON: None HISTORY: hematuria CT DLP: 875.1 mGycm Automated exposure control for dose reduction was used. Images obtained from the thoracic inlet to the floor the pelvis with no contrast. There are mild bilateral pleural effusions. There is bilateral basilar pulmonary infiltrate and atele ctasis. There is a few mediastinal lymph nodes up to 1 cm. There are no hilar masses. Thoracic aorta is atheromatous. There is no aneurysm. The ascending aorta measures 3.6 cm Liver and spleen are intact. The bile ducts are not dilated. Stomach is large. There are small multip le calcified gallstones. The bile ducts are not dilated. There is no adrenal mass. There is renal mild symmetric atrophy. There is no hydronephrosis. The uret ers are not dilated. There is no retroperitoneal adenopathy. Abdominal aorta is atheromatous. There i s intact urinary bladder. There is no inguinal hernia. There is no mesenteric edema. There is no ascites or free air. There is no bowel obstruction. Appendi x appears normal. The lumbar and thoracic vertebra appear intact. There is no compression fracture. There are sternal w ires. The bony pelvis is intact. The hip joints are intact. There is no hip dysplasia. IMPRESSION: Atherosclerotic vascular disease. Cholelithiasis. No dilated ducts. Renal atrophy. Small bilateral pl eural effusions appear new compared to old exam. Mild linear infiltrate and atelectasis at the lung b ases appears new compared to old exam. Right lower lobe nodule unchanged compared to old exam. I do n ot see a cause for hematuria.
--- NOTE | 2020-11-16 19:44 | P.GSCN ---
History of Present Illness Consult date: 11/16/20 Reason for Consult: Hematuria History of present illness: Mr. Dumont is a 69-year-old male admitted to the hospital with lower extremity swelling, shortness of breath. He is noncompliant with medical therapy, and has hx of Etoh abuse . Urology is consulted for hematuria, he denies any evidence of gross hematuria, but of note UA from December 2019 showed evidence of microscopic hematuria. Denies any voiding issues, denies any previous history of urinary retention. No known family history of malignancy. He underwent a CT abdomen and pelvis that showed no upper tract pathology Review of Systems - Constitutional Denies fever, Denies weight loss - EENT Ears, nose, mouth and throat: Denies dysphagia - Cardiovascular Reports edema, Reports shortness of breath - Respiratory Reports cough - Gastrointestinal Reports as per HPI - Genitourinary Denies dysuria, Denies hematuria - Integumentary Denies rash, Denies unusual bruising - Neurological Denies headaches, Denies syncope Past Medical History Past Medical History: Heart Failure, Hypertension, Myocardial Infarction ([place]), Pulmonary Embolus ([place]) Additional Past Medical History / Comment(s): Chronic kidney disease stage III, multiple falls, chronic anemia, coronary artery disease, previous bypass surgery, peripheral vascular disease, hypertension, previous history of pulmonary embolism Last Myocardial Infarction Date:: UNSURE History of Any Multi-Drug Resistant Organisms: None Reported Past Surgical History: Coronary Bypass/CABG, Heart Catheterization With Stent Past Anesthesia/Blood Transfusion Reactions: No Reported Reaction Date of Last Stent Placement:: UNSURE Past Psychological History: No Psychological Hx Reported Smoking Status: Current every day smoker Past Alcohol Use History: Daily Additional Past Alcohol Use History / Comment(s): PT DRINKS 3 SHOTS OF [email or web address] EVERYDAY Past Drug Use History: None Reported - Past Family History Mother History Unknown: Yes Medications and Allergies Home Medications Medication Instructions Recorded Confirmed Type Aspirin EC [Ecotrin Low Dose] 81 mg PO DAILY 09/04/19 11/14/20 History Metoprolol Succinate (ER) [Toprol 50 mg PO DAILY 09/05/19 11/14/20 History XL] Simvastatin 40 mg PO HS 09/05/19 11/14/20 History Furosemide [Lasix] 40 mg PO DAILY tab 01/12/20 11/14/20 Rx Apixaban [Eliquis] 5 mg PO BID 11/14/20 11/14/20 History amLODIPine [Norvasc] 10 mg PO DAILY 11/14/20 11/14/20 History lisinopriL 20 mg PO DAILY 11/14/20 11/14/20 History Allergies Allergy/AdvReac Type Severity Reaction Status Date / Time No Known Allergies Allergy Verified 11/14/20 10:06 Surgical - Exam Vital Signs Temp Pulse Resp BP Pulse Ox 97.9 F 94 30 H 83/69 99 11/14/20 00:51 11/14/20 00:51 11/14/20 00:51 11/14/20 00:51 11/14/20 00:51 - General well developed, well nourished, no distress, no pain - Eyes PERRL, normal ocular movement - ENT normal nares, normal mucosa - Respiratory normal expansion, normal respiratory effort - Abdomen Abdomen: soft, non tender - Psychiatric oriented to time, oriented to person, oriented to place Results - Labs 11/16/20 07:37 11/16/20 07:37 Abnormal Lab Results - Last 24 Hours (Table) 11/16/20 11/16/20 11/16/20 Range/Units 00:14 00:14 07:37 RBC 1.64 L 1.72 L (4.30-5.90) m/uL Hgb 7.2 L 7.8 L (13.0-17.5) gm/dL Hct 21.5 L 21.5 L (39.0-53.0) % MCV 131.3 H D 125.1 H D (80.0-100.0) fL MCH 44.2 H 45.2 H (25.0-35.0) pg Macrocytosis Marked A Marked A APTT 87.9 H (22.0-30.0) sec Sodium (137-145) mmol/L BUN (9-20) mg/dL Creatinine (0.66-1.25) mg/dL Calcium (8.4-10.2) mg/dL Iron (65-175) ug/dL TIBC (228-460) ug/dL Alkaline Phosphatase (38-126) U/L Total Protein (6.3-8.2) g/dL Albumin (3.5-5.0) g/dL 11/16/20 11/16/20 11/16/20 Range/Units 07:37 07:37 07:37 RBC (4.30-5.90) m/uL Hgb (13.0-17.5) gm/dL Hct (39.0-53.0) % MCV (80.0-100.0) fL MCH (25.0-35.0) pg Macrocytosis APTT 64.4 H (22.0-30.0) sec Sodium 136 L (137-145) mmol/L BUN 22 H (9-20) mg/dL Creatinine 1.71 H (0.66-1.25) mg/dL Calcium 8.1 L (8.4-10.2) mg/dL Iron 53 L (65-175) ug/dL TIBC 185 L (228-460) ug/dL Alkaline Phosphatase 35 L (38-126) U/L Total Protein 5.1 L (6.3-8.2) g/dL Albumin 2.6 L (3.5-5.0) g/dL Diabetes panel 11/16/20 Range/Units 07:37 Sodium 136 L (137-145) mmol/L Potassium 3.7 (3.5-5.1) mmol/L Chloride 107 (98-107) mmol/L Carbon Dioxide 27 (22-30) mmol/L BUN 22 H (9-20) mg/dL Creatinine 1.71 H (0.66-1.25) mg/dL Glucose 98 (74-99) mg/dL Calcium 8.1 L (8.4-10.2) mg/dL AST 24 (17-59) U/L ALT 12 (4-49) U/L Alkaline Phosphatase 35 L (38-126) U/L Total Protein 5.1 L (6.3-8.2) g/dL Albumin 2.6 L (3.5-5.0) g/dL Calcium panel 11/16/20 Range/Units 07:37 Calcium 8.1 L (8.4-10.2) mg/dL Albumin 2.6 L (3.5-5.0) g/dL Pituitary panel 11/16/20 Range/Units 07:37 Sodium 136 L (137-145) mmol/L Potassium 3.7 (3.5-5.1) mmol/L Chloride 107 (98-107) mmol/L Carbon Dioxide 27 (22-30) mmol/L BUN 22 H (9-20) mg/dL Creatinine 1.71 H (0.66-1.25) mg/dL Glucose 98 (74-99) mg/dL Calcium 8.1 L (8.4-10.2) mg/dL Adrenal panel 11/16/20 Range/Units 07:37 Sodium 136 L (137-145) mmol/L Potassium 3.7 (3.5-5.1) mmol/L Chloride 107 (98-107) mmol/L Carbon Dioxide 27 (22-30) mmol/L BUN 22 H (9-20) mg/dL Creatinine 1.71 H (0.66-1.25) mg/dL Glucose 98 (74-99) mg/dL Calcium 8.1 L (8.4-10.2) mg/dL Total Bilirubin 0.5 (0.2-1.3) mg/dL AST 24 (17-59) U/L ALT 12 (4-49) U/L Alkaline Phosphatase 35 L (38-126) U/L Total Protein 5.1 L (6.3-8.2) g/dL Albumin 2.6 L (3.5-5.0) g/dL Assessment and Plan Assessment: 69-year-old male to the hospital with shortness of breath and lower extremity swelling. Urology is consulted for microscopic hematuria. CT abdomen and pelvis showed no upper tract pathology, images reviewed. -We'll need cystoscopy as an outpatient, to rule out bladder pathology
[2020-11-16] MEDS: ATORVASTATIN 20 MG TAB PO SCH (20:19)
[2020-11-17 04:08] LABS: Albumin 2.1 g/dL (3.5-5.0); Calcium 7.7 mg/dL (8.4-10.2); Magnesium 1.4 mg/dL (1.6-2.3); Total Bilirubin 0.4 mg/dL (0.2-1.3); Total Protein 4.5 g/dL (6.3-8.2)
[2020-11-17 04:23] LABS: Potassium 4.5 mmol/L (3.5-5.1)
[2020-11-17 04:28] LABS: HCT 20.1 % (39.0-53.0); MCHC 34.5 g/dL (31.0-37.0); Platelet Count 157 k/uL (150-450); RBC 1.57 m/uL (4.30-5.90); WBC 5.3 k/uL (3.8-10.6)
[2020-11-17 04:34] LABS: HGB 6.9 gm/dL (13.0-17.5)
[2020-11-17 04:35] LABS: MCH 44.2 pg (25.0-35.0); Macrocytosis Marked
[2020-11-17] MEDS: MAGNESIUM SULFATE-D5W PMX 1 GM in DEXTROSE/WATER 1 100ML.BAG IVPB SCH ×3 (05:35→08:43)
[2020-11-17] MEDS: THIAMINE 100 MG TAB PO SCH ×2 (06:48→16:41)
[2020-11-17] MEDS: PANTOPRAZOLE 40 MG TABLET PO SCH (06:48)
[2020-11-17] MEDS: ASPIRIN 81 MG PO SCH (08:44)
[2020-11-17] MEDS: FOLIC ACID 1 MG TAB PO SCH (08:44)
[2020-11-17] MEDS: FUROSEMIDE 40 MG TAB PO SCH (10:02)
[2020-11-17] MEDS: METOPROLOL SUCCINATE (ER) 50 MG TAB.ER.24H PO SCH (10:02)
--- NOTE | 2020-11-17 12:51 | P.PN ---
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 It is noted that the patient has a history of EtOH abuse and noncompliance with his medications. Patient examined this more at the bedside. Patient denies chest pain or pressure. He denies shortness of breath. He reports feeling "lousy". He denies dizziness or lightheadedness. Telemetry reveals sinus mechanism. Patient was hypotensive this morning with a blood pressure of 84/43. Patient's metoprolol and Lasix were held. Echocardiogram completed revealed ejection fraction 55-60%, trace mitral regurgitation, and trace tricuspid regurgitation. Patient underwent VQ scan revealing an immediate probability of PE. Patient is currently on IV heparin for acute on chronic right lower extremity DVT. 11/17/2020 Patient examined this morning at the bedside. Patient states he does not feel well today and hurts all over. He denies shortness of breath or chest pain. Blood pressure 105/54. Patient denies any dizziness or lightheadedness. PHYSICAL EXAM: VITAL SIGNS: Reviewed. GENERAL: Well-developed in no acute distress. NECK: Supple. No JVD or thyromegaly LUNGS: Respirations even and unlabored. Lungs diminished to auscultation bilaterally. HEART: Regular rate and rhythm. S1 and S2 heard. EXTREMITIES: Normal range of motion. No clubbing or cyanosis. Peripheral pulses intact. Trace bilateral lower extremity edema ASSESSMENT: Acute on chronic right lower extremity DVT Coronary artery disease Chronic kidney disease Abnormal troponins, secondary to CKD History of PE History of alcohol abuse History of medication noncompliance Hypotension PLAN: Continue current cardiac medications Will defer anticoagulation to hematology, who is following patient during hospitalization as well Monitor blood pressure. Hold medications for SBP less than 90 Decrease metoprolol to 25 mg daily No further inpatient recommendations from a cardiac standpoint. We will sign off. Please reconsult if needed. Nurse practitioner note has been reviewed by physician. Signing provider agrees with the documented findings, assessment, and plan of care. Objective - Vital Signs Vital signs: Vital Signs Temp 98.3 F 11/17/20 09:55 Pulse 63 11/17/20 09:55 Resp 16 11/17/20 09:55 BP 105/54 11/17/20 09:55 Pulse Ox 97 11/17/20 09:55 Intake & Output 11/16/20 11/17/20 11/17/20 18:59 06:59 18:59 Intake Total 1085.862 240 Balance 1085.862 240 Weight 77 kg Intake: Intake, IV Titration 125.862 Amount Heparin Sod,Pork in 0.45% 125.862 NaCl 25,000 unit In 0.45 % NaCl 1 250ml.bag @ 12 UNITS/KG/HR 9.42 mls/hr IV .Q24H [facility] Rx#: [id number] Oral 960 240 Blood Product 0 Rc As-1 Unit 0 [id number] Other: Voiding Method Urinal Urinal # Voids 0 # Bowel Movements 0 - Labs CBC & Chem 7: 11/17/20 03:39 11/17/20 03:39 Labs: Abnormal Lab Results - Last 24 Hours (Table) 11/16/20 11/17/20 11/17/20 Range/Units 07:37 03:39 03:39 RBC 1.57 L (4.30-5.90) m/uL Hgb 6.9 L* (13.0-17.5) gm/dL Hct 20.1 L (39.0-53.0) % MCV 128.0 H (80.0-100.0) fL MCH 44.2 H (25.0-35.0) pg Macrocytosis Marked A APTT 56.4 H (22.0-30.0) sec Sodium (137-145) mmol/L Chloride (98-107) mmol/L BUN (9-20) mg/dL Creatinine (0.66-1.25) mg/dL Glucose (74-99) mg/dL Calcium (8.4-10.2) mg/dL Magnesium (1.6-2.3) mg/dL Iron 53 L (65-175) ug/dL TIBC 185 L (228-460) ug/dL Alkaline Phosphatase (38-126) U/L Total Protein (6.3-8.2) g/dL Albumin (3.5-5.0) g/dL Crossmatch 11/17/20 11/17/20 Range/Units 03:39 05:27 RBC (4.30-5.90) m/uL Hgb (13.0-17.5) gm/dL Hct (39.0-53.0) % MCV (80.0-100.0) fL MCH (25.0-35.0) pg Macrocytosis APTT (22.0-30.0) sec Sodium 133 L (137-145) mmol/L Chloride 109 H (98-107) mmol/L BUN 22 H (9-20) mg/dL Creatinine 1.62 H (0.66-1.25) mg/dL Glucose 100 H (74-99) mg/dL Calcium 7.7 L (8.4-10.2) mg/dL Magnesium 1.4 L (1.6-2.3) mg/dL Iron (65-175) ug/dL TIBC (228-460) ug/dL Alkaline Phosphatase 30 L (38-126) U/L Total Protein 4.5 L (6.3-8.2) g/dL Albumin 2.1 L (3.5-5.0) g/dL Crossmatch See Detail
--- NOTE | 2020-11-17 13:00 | P.PN ---
Subjective Progress Note Date: 11/15/20 Principal diagnosis: Acute DVT , COSME Mr. Dumont is a 69-year-old male with a past medical history of heart failure, hypertension, be, CKD stage III, chronic anemia, coronary artery disease status post CABG, peripheral vascular disease, hypertension coming into the hospital with a chief complaint of difficulty in breathing. Patient states that he has been having left-sided chest pain and also complains of increased swelling of his bilateral lower extremities. Patient states that he is noncompliant in taking his medications including his Xarelto for his history of PE. Patient also mentions about drinking alcohol every day, he drinks 6-8 beers. Patient states that he thought he would be having a stroke as he was feeling short of breath with diaphoresis along with these chest pains. He was complaining some tingling and numbness in his fingers and feet on and off. Patient denies having any fevers chills or rigors. No sick contacts. Denies having any cough. No abdominal pain nausea vomiting or diarrhea. Denies having any dysuria or hematuria. In the ER at the time of admission patient's vital signs temperature 97.9, heart rate 94, tachypneic, blood pressure 83/69 saturating at 99% on room air. Patient had a chest x-ray done showing no evidence of cardiopulmonary process he had an EKG showing sinus tachycardia with premature supraventricular complexes. On reviewing his labs white count of 6.4, hemoglobin 8.8, platelets 199. Sodium 135, potassium 3.3, chloride 108, bicarb 15, BUN 13, creatinine 1.52. Lactic acid at the time of admission 5.6, troponin 0 0.710. Albumin 2.9. Objective - Vital Signs Vital signs: Vital Signs Temp 98.6 F 11/15/20 11:58 Pulse 62 11/15/20 11:58 Resp 18 11/15/20 11:58 BP 97/57 11/15/20 14:43 Pulse Ox 95 11/15/20 11:58 Intake & Output 11/14/20 11/15/20 11/15/20 18:59 06:59 18:59 Intake Total 1460 480 Output Total 1100 440 300 Balance 360 -440 180 Weight 78.5 kg Intake: IV 20 Invasive Line 1 20 Oral 1440 480 Output: Urine 1100 440 300 Other: Voiding Method Urinal Urinal # Voids 1 - Exam PHYSICAL EXAMINATION: GENERAL: poorly kempt and chronically ill appearing HEENT: Pupils are round and equally reacting to light. EOMI. No scleral icterus. No conjunctival pallor. CARDIOVASCULAR: S1 and S2 present. No murmurs, rubs, or gallops. PULMONARY: Diminished breath sounds in all lung landa, crackles at the left lower lung base. ABDOMEN: Soft, nontender, normal bowel sounds. No guarding or rigidity. MUSCULOSKELETAL: No joint swelling or deformity. EXTREMITIES: bilateral leg edema NEUROLOGICAL: Gross neurological examination did not reveal any focal deficits. SKIN:No rash - Labs CBC & Chem 7: 11/16/20 00:14 11/15/20 15:39 Assessment and Plan Assessment: ASSESSMENT Right LE acute on chronic DVT Gross Hematuria Anemia - secondary to hematuria History of PE noncompliant with anticoagulation History of coronary artery disease Elevated troponin Severe Macrocytosis CKD stage III Chronic anemia Hypokalemia Hypomagnesemia Alcohol abuse History of multiple falls Peripheral vascular disease Nicotine dependence Moderate protein calorie malnutrition Plan: Patient coming in with chest pain, bilateral lower extremity edema noncompliant with his anticoagulation due to history of PE. Patient had a lower extremity Doppler that was positive for acute on chronic DVT of the right lower extremity, so he was started on full dose anticoagulation with 10 mg twice daily of Eliquis. As per discussion with nursing staff, patient had gross hematuria, so will d/c Xarelto. Consult Hematology . Will monitor for alcohol withdrawal symptoms as patient has alcohol dependence. Cardiology has been consulted, Echo cardiogram ordered showing EF 55-60 % Further recommendations to follow depending on the progress of the patient.
--- NOTE | 2020-11-17 13:09 | CDI ---
Documentation Clarification Form Date: 11/17/2020 12:58:14 PM From: Shannan Jose RN, CCDS Admit Date: 11/14/2020 04:09:00 AM Patient Name: Kraig Dumont Visit Number: [id number] ATTENTION: The Clinical Documentation Specialists (CDI) and [facility] Coding Staff appreciate your assistance in clarifying documentation. Please respond to the clarification below the line at the bottom and electronically sign. The CDI & [facility] Coding staff will review the response and follow-up if needed. Please note: Queries are made part of the Legal Health Record. If you have any questions, please contact the author of this message via ITS. Dr. Martin Georges Your patient has the documented historical diagnosis of unspecified CHF in the H&P and consults. Additional information regarding the type & acuity of CHF is requested. History/Risk Factors: CHF, HTN, MS, PE, CKD stage 3, Chronic Anemia, CAD with CABG, PVD, PCI Clinical Indicators: 11/16 Oncology consult: "Mr. Dumont has PMH including CHF, HTN, CKD, anemia, CAD s/p CABG, admitted for difficulty in breathing, chest pain and BLE swelling associated diaphoresis." 11/14 H&P: "Past Medical History: Heart Failure, Hypertension, Myocardial Infarction (MS), Pulmonary Embolus (PE)." 11/14 Cardiology Consult: "Consult reason: congestive heart failure." 11/14 4700 BNP 11/15 Echocardiogram Results: EF 55-60% 11/14 Chest X Ray: No active cardiopulmonary disease." Treatment: Lasix 40 mg Po Daily Toprol XL 25 mg Po QD In your professional opinion, can you please clarify the [acuity and type] of CHF if known? [ ] Chronic Diastolic Heart Failure (preserved EF) [ ] Chronic Systolic & Diastolic Heart Failure [ ] Other, please specify_I did not see the patient [ ] Unable to determine (Template Last Revised: June 2020) MTDD
[2020-11-17 14:34] LABS: Anisocytosis Moderate; HCT 28.4 % (39.0-53.0); MCH 40.2 pg (25.0-35.0); MCHC 33.8 g/dL (31.0-37.0); Macrocytosis Marked; Mean Platelet Volume 8.1; Platelet Count 201 k/uL (150-450); RBC 2.38 m/uL (4.30-5.90); RDW 20.5 % (11.5-15.5); WBC 5.5 k/uL (3.8-10.6)
[2020-11-17 14:40] LABS: HGB 9.6 gm/dL (13.0-17.5); MCV 119.2 fL (80.0-100.0)
[2020-11-17 17:43] LABS: Appearance,Urine Clear (Clear); Bacteria,Urine Few /hpf; Bilirubin,Urine Negative (Negative); Blood,Urine Negative (Negative); Color,Urine Yellow; Glucose,Urine (UA) Negative (Negative); Hyaline Casts,Urine 1 /lpf (0-2); Ketones,Urine Negative (Negative); Leukocyte Esterase,Urine Negative (Negative); Mucus,Urine Rare /hpf; Nitrite,Urine Positive (Negative); PH, Urine 5.5 (5.0-8.0); Protein,Urine Negative (Negative); Specific Gravity,Urine 1.009 (1.001-1.035); Urobilinogen,Urine <2.0 mg/dL (<2.0); WBC,Urine 1 /hpf (0-5)
[2020-11-17] MEDS ORDERED: DARBEPOETIN ALFA 40 MCG/0.4 ML SYRINGE SQ SCH (20:00)
[2020-11-17] MEDS: HYDROcodone/APAP 5-325MG 1 EACH TAB PO PRN (21:30)
[2020-11-17] MEDS: ATORVASTATIN 20 MG TAB PO SCH (21:30)
--- NOTE | 2020-11-17 21:32 | P.PN ---
Subjective Progress Note Date: 11/17/20 the patient is symptomatically stable. He denies any new chest pain or shortness of breath. He denies any significant tightness or pain in the lower extremities. General weakness persists. No fever/chills/nausea/vomiting. He has not had any obvious bleeding including any visible hematuria Objective - Vital Signs Vital signs: Vital Signs Temp 98.9 F 11/17/20 15:03 Pulse 68 11/17/20 15:03 Resp 18 11/17/20 15:03 BP 107/60 11/17/20 15:03 Pulse Ox 95 11/17/20 16:51 Intake & Output 11/17/20 11/17/20 11/18/20 06:59 18:59 06:59 Intake Total 744 Output Total 500 Balance 244 Weight 77 kg Intake: IV 94 Heparin Sod,Pork in 0.45% 94 NaCl 25,000 unit In 0.45 % NaCl 1 250ml.bag @ 12 UNITS/KG/HR 9.42 mls/hr IV .Q24H TAMMY Rx#: [id number] Intake, IV Titration 100 Amount Magnesium Sulfate-D5w Pmx 100 1 gm In Dextrose/Water 1 100ml.bag @ 100 mls/hr IVPB Q1H TAMMY Rx#: [id number] Oral 240 Blood Product 310 Rc As-1 Unit 310 [id number] Output: Urine 500 Other: Voiding Method Urinal Urinal # Voids 0 # Bowel Movements 0 - Constitutional General appearance: Present: no acute distress - EENT Eyes: Present: EOMI ENT: Present: hearing grossly normal, normal oropharynx - Respiratory Respiratory: bilateral: CTA - Cardiovascular Rhythm: regular - Gastrointestinal General gastrointestinal: Present: normal bowel sounds, soft - Integumentary Integumentary: Present: normal - Neurologic Neurologic: Present: CNII-XII intact - Musculoskeletal Musculoskeletal: Present: generalized weakness - Psychiatric Psychiatric: Present: A&O x's 3, appropriate affect - Labs CBC & Chem 7: 11/17/20 13:55 11/17/20 03:39 Labs: Abnormal Lab Results - Last 24 Hours (Table) 11/17/20 11/17/20 11/17/20 Range/Units 03:39 03:39 03:39 RBC 1.57 L (4.30-5.90) m/uL Hgb 6.9 L* (13.0-17.5) gm/dL Hct 20.1 L (39.0-53.0) % MCV 128.0 H (80.0-100.0) fL MCH 44.2 H (25.0-35.0) pg RDW (11.5-15.5) % Macrocytosis Marked A APTT 56.4 H (22.0-30.0) sec Sodium 133 L (137-145) mmol/L Chloride 109 H (98-107) mmol/L BUN 22 H (9-20) mg/dL Creatinine 1.62 H (0.66-1.25) mg/dL Glucose 100 H (74-99) mg/dL Calcium 7.7 L (8.4-10.2) mg/dL Magnesium 1.4 L (1.6-2.3) mg/dL Alkaline Phosphatase 30 L (38-126) U/L Total Protein 4.5 L (6.3-8.2) g/dL Albumin 2.1 L (3.5-5.0) g/dL Urine Bacteria (None) /hpf Urine Mucus (None) /hpf Crossmatch 11/17/20 11/17/20 11/17/20 Range/Units 05:27 13:55 17:25 RBC 2.38 L (4.30-5.90) m/uL Hgb 9.6 L D (13.0-17.5) gm/dL Hct 28.4 L (39.0-53.0) % MCV 119.2 H D (80.0-100.0) fL MCH 40.2 H (25.0-35.0) pg RDW 20.5 H (11.5-15.5) % Macrocytosis Marked A APTT (22.0-30.0) sec Sodium (137-145) mmol/L Chloride (98-107) mmol/L BUN (9-20) mg/dL Creatinine (0.66-1.25) mg/dL Glucose (74-99) mg/dL Calcium (8.4-10.2) mg/dL Magnesium (1.6-2.3) mg/dL Alkaline Phosphatase (38-126) U/L Total Protein (6.3-8.2) g/dL Albumin (3.5-5.0) g/dL Urine Bacteria Few H (None) /hpf Urine Mucus Rare H (None) /hpf Crossmatch See Detail Assessment and Plan (1) DVT (deep venous thrombosis) Narrative/Plan: the patient was diagnosed with acute on chronic DVT. It has been confirmed that he had recurrent acute DVT the cause of noncompliance. This was confirmed with his pharmacy,, and with him. Therefore there has been no failure of anti c oagulation. The patient can therefore be placed back on his prior regimen. - The discussed the importance of compliance in detail. Patient states that he has his medications delivered to him. He lives alone. We will need to engage with social work to see if home care can be provided to help with compliance. Current Visit: Yes Status: Acute Priority: High Code(s): I82.409 - ACUTE EMBOLISM AND THOMBOS UNSP DEEP VN UNSP LOWER EXTREMITY SNOMED Code(s): 204608647 (2) Anemia Narrative/Plan: was worked up during his previous admission, with partial workup for deficiency status repeated during this admission. Workup so far has been negative, and therefore his anemia is felt to be most likely related to chronic kidney disease. During this admission, there may have been some mild blood loss, but this was not felt to be a significant component. - Currently hemoglobin is stable posttransfusion. In this situation the patient will benefit from starting LISA. This was discussed with him. Patient however stated that at this time he does not have any means of being able to transport himself for weekly blood draws and injections. Again, we will have to discuss with social work and discharge planning to see if transportation can be arranged or if he can receive blood draws and injections at home as much as possible with home care. - New one drink, with transfusion for hemoglobin less than 7 Current Visit: No Status: Acute Code(s): D64.9 - ANEMIA, UNSPECIFIED SNOMED Code(s): 467746421 (3) Hematuria Narrative/Plan: Saray has not had any recurrence of gross majority of. He was evaluated by urology, with outpatient cystoscopy recommended. Again this could be logistically quite difficult given the patient's transportation problems. - CT scans did not show any evidence of malignancy. Current Visit: Yes Status: Acute Code(s): R31.9 - HEMATURIA, UNSPECIFIED SNOMED Code(s): 32460978
--- NOTE | 2020-11-17 22:07 | P.PN ---
Subjective Progress Note Date: 11/16/20 Principal diagnosis: Acute DVT , COSME Mr. Dumont is a 69-year-old male with a past medical history of heart failure, hypertension, be, CKD stage III, chronic anemia, coronary artery disease status post CABG, peripheral vascular disease, hypertension coming into the hospital with a chief complaint of difficulty in breathing. Patient states that he has been having left-sided chest pain and also complains of increased swelling of his bilateral lower extremities. Patient states that he is noncompliant in taking his medications including his Xarelto for his history of PE. Patient also mentions about drinking alcohol every day, he drinks 6-8 beers. Patient states that he thought he would be having a stroke as he was feeling short of breath with diaphoresis along with these chest pains. He was complaining some tingling and numbness in his fingers and feet on and off. Patient denies having any fevers chills or rigors. No sick contacts. Denies having any cough. No abdominal pain nausea vomiting or diarrhea. Denies having any dysuria or hematuria. In the ER at the time of admission patient's vital signs temperature 97.9, heart rate 94, tachypneic, blood pressure 83/69 saturating at 99% on room air. Patient had a chest x-ray done showing no evidence of cardiopulmonary process he had an EKG showing sinus tachycardia with premature supraventricular complexes. On reviewing his labs white count of 6.4, hemoglobin 8.8, platelets 199. Sodium 135, potassium 3.3, chloride 108, bicarb 15, BUN 13, creatinine 1.52. Lactic acid at the time of admission 5.6, troponin 0 0.710. Albumin 2.9. On 11/16/2020 -patient is seen and examined at the bedside. Patient is a poor historian. He denies having any more hematuria dysuria or increased frequency of urination. Patient had a bowel movement, nurse checked the commode and did not report any blood in his stool. Patient denied having any chest pain or palpitations. He complains of fatigue and weakness. On reviewing his vitals temperature of 98, respiratory rate 18, blood pressure 101/46, heart rate 68, saturating at 93% on 2 L of nasal cannula. On reviewing the patient's labs his hemoglobin is 7. 8, severe macrocytosis with MCV 125. Sodium 136, potassium 3.7, chloride 107, bicarb 27, BUN 22, creatinine 1.71. Albumin 2.6 Patient's medications have been reviewed Objective - Vital Signs Vital signs: Vital Signs Temp 97.5 F L 11/16/20 12:02 Pulse 56 L 11/16/20 12:02 Resp 16 11/16/20 12:02 BP 105/57 11/16/20 12:02 Pulse Ox 91 L 11/16/20 12:02 Intake & Output 11/15/20 11/16/20 11/16/20 18:59 06:59 18:59 Intake Total 720 55.264 240 Output Total 300 800 Balance 420 -744.736 240 Weight 80.5 kg Intake: Intake, IV Titration 55.264 Amount Heparin Sod,Pork in 0.45% 55.264 NaCl 25,000 unit In 0.45 % NaCl 1 250ml.bag @ 12 UNITS/KG/HR 9.42 mls/hr IV .Q24H TAMMY Rx#: [id number] Oral 720 240 Output: Urine 300 800 Other: Voiding Method Urinal Urinal Urinal # Voids 1 - Exam PHYSICAL EXAMINATION: GENERAL: poorly kempt and chronically ill appearing HEENT: Pupils are round and equally reacting to light. EOMI. No scleral icterus. + conjunctival pallor. CARDIOVASCULAR: S1 and S2 present. No murmurs, rubs, or gallops. PULMONARY: Diminished breath sounds in all lung landa, crackles at the left lower lung base. ABDOMEN: Soft, nontender, normal bowel sounds. No guarding or rigidity. Dried blood near the tip of his penis and few drops of bloody urine on palpation MUSCULOSKELETAL: No joint swelling or deformity. EXTREMITIES: bilateral leg edema NEUROLOGICAL: Gross neurological examination did not reveal any focal deficits. SKIN:No rash - Labs CBC & Chem 7: 11/17/20 13:55 11/17/20 03:39 Labs: Abnormal Lab Results - Last 24 Hours (Table) 11/15/20 11/15/20 11/15/20 Range/Units 06:34 15:39 15:39 RBC 1.66 L (4.30-5.90) m/uL Hgb 7.3 L D (13.0-17.5) gm/dL Hct 20.8 L (39.0-53.0) % MCV 125.5 H (80.0-100.0) fL MCH 44.1 H (25.0-35.0) pg Macrocytosis Marked A APTT (22.0-30.0) sec Sodium 136 L (137-145) mmol/L BUN 23 H (9-20) mg/dL Creatinine 1.73 H (0.66-1.25) mg/dL Glucose 117 H (74-99) mg/dL Calcium 8.0 L (8.4-10.2) mg/dL Alkaline Phosphatase 33 L (38-126) U/L Total Protein 4.8 L (6.3-8.2) g/dL Albumin 2.4 L (3.5-5.0) g/dL HDL Cholesterol 33.0 L (40.0-60.0) mg/dL 11/16/20 11/16/20 11/16/20 Range/Units 00:14 00:14 07:37 RBC 1.64 L 1.72 L (4.30-5.90) m/uL Hgb 7.2 L 7.8 L (13.0-17.5) gm/dL Hct 21.5 L 21.5 L (39.0-53.0) % MCV 131.3 H D 125.1 H D (80.0-100.0) fL MCH 44.2 H 45.2 H (25.0-35.0) pg Macrocytosis Marked A Marked A APTT 87.9 H (22.0-30.0) sec Sodium (137-145) mmol/L BUN (9-20) mg/dL Creatinine (0.66-1.25) mg/dL Glucose (74-99) mg/dL Calcium (8.4-10.2) mg/dL Alkaline Phosphatase (38-126) U/L Total Protein (6.3-8.2) g/dL Albumin (3.5-5.0) g/dL HDL Cholesterol (40.0-60.0) mg/dL 11/16/20 11/16/20 Range/Units 07:37 07:37 RBC (4.30-5.90) m/uL Hgb (13.0-17.5) gm/dL Hct (39.0-53.0) % MCV (80.0-100.0) fL MCH (25.0-35.0) pg Macrocytosis APTT 64.4 H (22.0-30.0) sec Sodium 136 L (137-145) mmol/L BUN 22 H (9-20) mg/dL Creatinine 1.71 H (0.66-1.25) mg/dL Glucose (74-99) mg/dL Calcium 8.1 L (8.4-10.2) mg/dL Alkaline Phosphatase 35 L (38-126) U/L Total Protein 5.1 L (6.3-8.2) g/dL Albumin 2.6 L (3.5-5.0) g/dL HDL Cholesterol (40.0-60.0) mg/dL Assessment and Plan Assessment: ASSESSMENT Right LE acute on chronic DVT Gross Hematuria Anemia - secondary to hematuria History of PE noncompliant with anticoagulation History of coronary artery disease Elevated troponin Severe Macrocytosis CKD stage III Chronic anemia Hypokalemia Hypomagnesemia Alcohol abuse History of multiple falls Peripheral vascular disease Nicotine dependence Moderate protein calorie malnutrition Plan: Patient coming in with chest pain, bilateral lower extremity edema noncompliant with his anticoagulation due to history of PE. Patient had a lower extremity Doppler that was positive for acute on chronic DVT of the right lower extremity, so he was started on full dose anticoagulation with 10 mg twice daily of Eliquis. As per discussion with nursing staff, patient had gross hematuria, d/c Xarelto. Consulted Hematology started him on maintainence dose of heparin. Will closely monitor CBC and transfuse if below 7 Will monitor for alcohol withdrawal symptoms as patient has alcohol dependence. Cardiology has been consulted, Echo cardiogram ordered showing EF 55-60 % Further recommendations to follow depending on the progress of the patient.
--- NOTE | 2020-11-17 22:16 | P.PN ---
Subjective Progress Note Date: 11/17/20 Principal diagnosis: Acute DVT , COSME Mr. Dumont is a 69-year-old male with a past medical history of heart failure, hypertension, be, CKD stage III, chronic anemia, coronary artery disease status post CABG, peripheral vascular disease, hypertension coming into the hospital with a chief complaint of difficulty in breathing. Patient states that he has been having left-sided chest pain and also complains of increased swelling of his bilateral lower extremities. Patient states that he is noncompliant in taking his medications including his Xarelto for his history of PE. Patient also mentions about drinking alcohol every day, he drinks 6-8 beers. Patient states that he thought he would be having a stroke as he was feeling short of breath with diaphoresis along with these chest pains. He was complaining some tingling and numbness in his fingers and feet on and off. Patient denies having any fevers chills or rigors. No sick contacts. Denies having any cough. No abdominal pain nausea vomiting or diarrhea. Denies having any dysuria or hematuria. In the ER at the time of admission patient's vital signs temperature 97.9, heart rate 94, tachypneic, blood pressure 83/69 saturating at 99% on room air. Patient had a chest x-ray done showing no evidence of cardiopulmonary process he had an EKG showing sinus tachycardia with premature supraventricular complexes. On reviewing his labs white count of 6.4, hemoglobin 8.8, platelets 199. Sodium 135, potassium 3.3, chloride 108, bicarb 15, BUN 13, creatinine 1.52. Lactic acid at the time of admission 5.6, troponin 0 0.710. Albumin 2.9. On 11/16/2020 -patient is seen and examined at the bedside. Patient is a poor historian. He denies having any more hematuria dysuria or increased frequency of urination. Patient had a bowel movement, nurse checked the commode and did not report any blood in his stool. Patient denied having any chest pain or palpitations. He complains of fatigue and weakness. On reviewing his vitals temperature of 98, respiratory rate 18, blood pressure 101/46, heart rate 68, saturating at 93% on 2 L of nasal cannula. On reviewing the patient's labs his hemoglobin is 7. 8, severe macrocytosis with MCV 125. Sodium 136, potassium 3.7, chloride 107, bicarb 27, BUN 22, creatinine 1.71. Albumin 2.6. On 11/17/2020 -patient is seen and examined at the bedside. As per discussion with nursing staff patient's hemoglobin dropped to 6.9 this morning, he received 1 unit of PRBCs. Patient denied having any more hematuria he does not have any chest pain or palpitations. He denies having any abdominal pain nausea vomiting or diarrhea. On reviewing the patient's vitals temperature of 98, heart rate 68, respiratory rate 18, blood pressure 101/46, saturating at 93% on 3 L of nasal cannula. On reviewing the patient's labs white count of 5.5, hemoglobin 9.6, platelets 201. There is marked macrocytosis Active Medications Hydrocodone Bitart/Acetaminophen (Hydrocodone/Apap 5-325mg 1 Each Tab) 1 each PO Q8HR PRN Aspirin (Aspirin 81 Mg) 81 mg PO DAILY TAMMY Atorvastatin Calcium (Atorvastatin 20 Mg Tab) 20 mg PO HS TAMMY Darbepoetin Brenton (Darbepoetin Brenton 40 Mcg/0.4 Ml Syringe) 40 mcg SQ Q7D TAMMY Folic Acid (Folic Acid 1 Mg Tab) 1 mg PO DAILY TAMMY Furosemide (Furosemide 40 Mg Tab) 40 mg PO DAILY [facility] Heparin Sodium (Porcine) (Heparin Sodium 1,000 Un/Ml (10ml Vl)) 0 unit IV PER PROTOCOL PRN; Protocol Heparin Sodium/Sodium Chloride (25,000 unit/ Sodium Chloride) 250 mls @ 9.42 mls/hr IV .Q24H TAMMY; Protocol Lorazepam (Lorazepam 2 Mg/Ml Inj) 1 mg IV Q2HR PRN PRN Reason: CIWA 8 or 9 Metoprolol Succinate (Metoprolol Succinate (Er) 25 Mg Tab.Er.24h) 25 mg PO DAILY [facility] Miscellaneous Information (Magnesium Replacement Protocol 1 Each Misc) 1 each MISCELLANE DAILY PRN; Protocol Morphine Sulfate (Morphine Sulfate 4 Mg/Ml Syringe) 4 mg IV Q4HR PRN PRN Reason: Severe Pain Naloxone HCl (Naloxone 0.4 Mg/Ml 1 Ml Vial) 0.2 mg IV Q2M PRN PRN Reason: Opioid Reversal Pantoprazole Sodium (Pantoprazole 40 Mg Tablet) 40 mg PO AC-BRKFST [facility] Thiamine HCl (Thiamine 100 Mg Tab) 100 mg PO BID-W/MEALS [facility] Objective - Vital Signs Vital signs: Vital Signs Temp 98.3 F 11/17/20 09:55 Pulse 63 11/17/20 09:55 Resp 16 11/17/20 09:55 BP 105/54 11/17/20 09:55 Pulse Ox 97 11/17/20 09:55 Intake & Output 11/16/20 11/17/20 11/17/20 18:59 06:59 18:59 Intake Total 1085.862 240 Balance 1085.862 240 Weight 77 kg Intake: Intake, IV Titration 125.862 Amount Heparin Sod,Pork in 0.45% 125.862 NaCl 25,000 unit In 0.45 % NaCl 1 250ml.bag @ 12 UNITS/KG/HR 9.42 mls/hr IV .Q24H TAMMY Rx#: [id number] Oral 960 240 Blood Product 0 Rc As-1 Unit 0 [id number] Other: Voiding Method Urinal Urinal # Voids 0 # Bowel Movements 0 - Exam PHYSICAL EXAMINATION: GENERAL: poorly kempt and chronically ill appearing HEENT: Pupils are round and equally reacting to light. EOMI. No scleral icterus. + conjunctival pallor. CARDIOVASCULAR: S1 and S2 present. No murmurs, rubs, or gallops. PULMONARY: Diminished breath sounds in all lung landa, crackles at the left lower lung base. ABDOMEN: Soft, nontender, normal bowel sounds. No guarding or rigidity. MUSCULOSKELETAL: No joint swelling or deformity. EXTREMITIES: bilateral leg edema NEUROLOGICAL: AAOX3, Gross neurological examination did not reveal any focal deficits. No active bleeding from any site - Labs CBC & Chem 7: 11/17/20 13:55 11/17/20 03:39 Labs: Abnormal Lab Results - Last 24 Hours (Table) 11/16/20 11/17/20 11/17/20 Range/Units 07:37 03:39 03:39 RBC 1.57 L (4.30-5.90) m/uL Hgb 6.9 L* (13.0-17.5) gm/dL Hct 20.1 L (39.0-53.0) % MCV 128.0 H (80.0-100.0) fL MCH 44.2 H (25.0-35.0) pg Macrocytosis Marked A APTT 56.4 H (22.0-30.0) sec Sodium (137-145) mmol/L Chloride (98-107) mmol/L BUN (9-20) mg/dL Creatinine (0.66-1.25) mg/dL Glucose (74-99) mg/dL Calcium (8.4-10.2) mg/dL Magnesium (1.6-2.3) mg/dL Iron 53 L (65-175) ug/dL TIBC 185 L (228-460) ug/dL Alkaline Phosphatase (38-126) U/L Total Protein (6.3-8.2) g/dL Albumin (3.5-5.0) g/dL Crossmatch 11/17/20 11/17/20 Range/Units 03:39 05:27 RBC (4.30-5.90) m/uL Hgb (13.0-17.5) gm/dL Hct (39.0-53.0) % MCV (80.0-100.0) fL MCH (25.0-35.0) pg Macrocytosis APTT (22.0-30.0) sec Sodium 133 L (137-145) mmol/L Chloride 109 H (98-107) mmol/L BUN 22 H (9-20) mg/dL Creatinine 1.62 H (0.66-1.25) mg/dL Glucose 100 H (74-99) mg/dL Calcium 7.7 L (8.4-10.2) mg/dL Magnesium 1.4 L (1.6-2.3) mg/dL Iron (65-175) ug/dL TIBC (228-460) ug/dL Alkaline Phosphatase 30 L (38-126) U/L Total Protein 4.5 L (6.3-8.2) g/dL Albumin 2.1 L (3.5-5.0) g/dL Crossmatch See Detail Assessment and Plan Assessment: ASSESSMENT Right LE acute on chronic DVT Gross Hematuria Anemia - secondary to hematuria History of PE noncompliant with anticoagulation History of coronary artery disease Elevated troponin Severe Macrocytosis CKD stage III Chronic anemia Hypokalemia Hypomagnesemia Alcohol abuse History of multiple falls Peripheral vascular disease Nicotine dependence Severe protein calorie malnutrition Plan: Patient diagnosed with acute DVT, started on Eliquis, had gross hematuria. Discontinued Eliquis and hematology consulted currently on heparin for anticoagulation. This morning patient's hemoglobin dropped to 6.8 and he was transfused 1 unit of PRBCs. We will repeat CBC. We will replace magnesium. Hematology, Urology on board and appreciate their recommendations. Discussed the CODE STATUS with the patient, he wants to be a full code.
[2020-11-17] MEDS: HEPARIN SOD,PORK IN 0.45% NACL 25,000 UNIT in 0.45% NACL 1 250ML.BAG IV SCH (23:55)
[2020-11-18] MEDS: THIAMINE 100 MG TAB PO SCH ×2 (06:13→16:58)
[2020-11-18] MEDS: PANTOPRAZOLE 40 MG TABLET PO SCH (06:13)
[2020-11-18] MEDS: METOPROLOL SUCCINATE (ER) 25 MG TAB.ER.24H PO SCH (08:24)
[2020-11-18] MEDS: FUROSEMIDE 40 MG TAB PO SCH (08:24)
[2020-11-18] MEDS: ASPIRIN 81 MG PO SCH (08:24)
[2020-11-18] MEDS: FOLIC ACID 1 MG TAB PO SCH (08:24)
--- NOTE | 2020-11-18 10:23 | CDI ---
Documentation Clarification Form Date: 11/17/2020 12:58:14 PM From: Shannan Jose RN, CCDS Admit Date: 11/14/2020 04:09:00 AM Patient Name: Kraig Dumont Visit Number: [id number] ATTENTION: The Clinical Documentation Specialists (CDI) and [facility] Coding Staff appreciate your assistance in clarifying documentation. Please respond to the clarification below the line at the bottom and electronically sign. The CDI & [facility] Coding staff will review the response and follow-up if needed. Please note: Queries are made part of the Legal Health Record. If you have any questions, please contact the author of this message via ITS. Dr. Fam Your patient has the documented historical diagnosis of unspecified CHF in the H&P and consults. Additional information regarding the type& acuity of CHF is requested. History/Risk Factors: CHF, HTN, [place], PE, CKD stage 3, Chronic Anemia, CAD with CABG, PVD, PCI Clinical Indicators: 11/16 Oncology consult: "Mr. Dumont has PMH including CHF, HTN, CKD, anemia, CAD s/p CABG, admitted for difficulty in breathing, chest pain and BLE swelling associated diaphoresis." 11/14 H&P: "Past Medical History: Heart Failure, Hypertension, Myocardial Infarction (IN), Pulmonary Embolus (PE)." 11/14 Cardiology Consult: "Consult reason: congestive heart failure." VS/Pulse OX: 11/14 4700 BNP 11/15 Echocardiogram Results: EF 55-60% 11/14 Chest X Ray: No active cardiopulmonary disease." Treatment: Lasix 40 mg Po Daily Toprol XL 25 mg Po QD In your professional opinion, can you please clarify the [acuity and type] of CHF if known? [ ] Chronic Diastolic Heart Failure (preserved EF) [ ] Chronic Systolic & Diastolic Heart Failure [ ] Other, please specify [ ] Unable to determine (Template Last Revised: June 2020) Unable to determine MTDD
[2020-11-18 14:55] LABS: Anisocytosis Slight; Basophils % (A) 1 %; Eosinophils # (A) 0.1 k/uL (0-0.7); Eosinophils % (A) 2 %; HCT 26.9 % (39.0-53.0); HGB 9.1 gm/dL (13.0-17.5); Lymphocytes # (A) 1.1 k/uL (1.0-4.8); Lymphocytes % (A) 23 %; MCH 40.7 pg (25.0-35.0); MCHC 33.8 g/dL (31.0-37.0); MCV 120.1 fL (80.0-100.0); Mean Platelet Volume 8.6; Monocytes # (A) 0.3 k/uL (0-1.0); Monocytes % (A) 7 %; Neutrophils # (A) 3.1 k/uL (1.3-7.7); Neutrophils % (A) 66 %; Platelet Count 208 k/uL (150-450); RBC 2.24 m/uL (4.30-5.90); RDW 19.8 % (11.5-15.5); WBC 4.7 k/uL (3.8-10.6)
[2020-11-18 14:56] LABS: Macrocytosis Marked
[2020-11-18] MEDS: HEPARIN SOD,PORK IN 0.45% NACL 25,000 UNIT in 0.45% NACL 1 250ML.BAG IV SCH (16:58)
--- NOTE | 2020-11-18 19:15 | P.PN ---
Subjective Progress Note Date: 11/18/20 Principal diagnosis: acute on chronic DVT, anemia of chronic kidney disease In follow-up today patient states feeling okay, he has no acute physical complaints Objective - Vital Signs Vital signs: Vital Signs Temp 98.9 F 11/18/20 16:00 Pulse 59 L 11/18/20 16:00 Resp 16 11/18/20 16:00 BP 108/58 11/18/20 16:00 Pulse Ox 96 11/18/20 16:00 Intake & Output 11/18/20 11/18/20 11/19/20 06:59 18:59 06:59 Intake Total 242.827 853.843 Output Total 300 1050 Balance -57.173 -196.157 Weight 74.5 kg Intake: Intake, IV Titration 242.827 133.843 Amount Heparin Sod,Pork in 0.45% 242.827 133.843 NaCl 25,000 unit In 0.45 % NaCl 1 250ml.bag @ 12 UNITS/KG/HR 9.42 mls/hr IV .Q24H [facility] Rx#: [id number] Oral 720 Output: Urine 300 1050 Other: Voiding Method Urinal Urinal # Voids 1 # Bowel Movements 1 - Constitutional General appearance: Present: average body habitus, cooperative, no acute distress - EENT Eyes: Present: anicteric sclerae, EOMI ENT: Present: hearing grossly normal - Respiratory Respiratory: bilateral: diminished - Cardiovascular Heart sounds: normal: S1, S2 - Peripheral edema leg Peripheral Edema: bilateral: Trace - Gastrointestinal General gastrointestinal: Present: normal bowel sounds, soft - Neurologic Neurologic: Present: CNII-XII intact - Musculoskeletal Musculoskeletal: Present: generalized weakness - Psychiatric Psychiatric: Present: A&O x's 3, appropriate affect, intact judgment & insight - Allied health notes Allied health notes reviewed: nursing - Labs CBC & Chem 7: 11/18/20 13:59 11/17/20 03:39 Labs: Abnormal Lab Results - Last 24 Hours (Table) 11/18/20 11/18/20 Range/Units 06:28 13:59 RBC 2.24 L (4.30-5.90) m/uL Hgb 9.1 L (13.0-17.5) gm/dL Hct 26.9 L (39.0-53.0) % MCV 120.1 H (80.0-100.0) fL MCH 40.7 H (25.0-35.0) pg RDW 19.8 H (11.5-15.5) % Macrocytosis Marked A APTT 47.7 H (22.0-30.0) sec Assessment and Plan (1) Macrocytic anemia Narrative/Plan: Started on folic acid, folate was 1.4. Current Visit: Yes Status: Acute Priority: High Code(s): D53.9 - NUTRITIONAL ANEMIA, UNSPECIFIED SNOMED Code(s): 69880335 (2) DVT (deep venous thrombosis) Narrative/Plan: Patient states he is not certain if he was taking his anticoagulation twice a day, if at all, prior to admission. Recommendation is to resume Eliquis 5 mg by mouth twice a day. Patient was encouraged to take his medications as prescribed. Explained to patient the danger of a propagating DVT and if clot breaks loose and becomes an embolus it will go to his lungs, which can be fatal. Recommendation is for lifelong anticoagulation. If unable to tolerate anticoagulation, take anticoagulation as directed or the risk of taking anticoagulation becomes greater then the benefit, IVC filter needs to be placed. He verbalized understanding. Discussed with nursing. Just to be certain that there are no procedures planned for this patient will have her wait until tomorrow (or once discharge has been decided on) to place change roof bolter to oral anticoagulation. Dose of eliquis will be given and heparin drip will be turned off. Current Visit: Yes Status: Acute Priority: High Code(s): I82.409 - ACUTE EMBOLISM AND THOMBOS UNSP DEEP VN UNSP LOWER EXTREMITY SNOMED Code(s): 744219065 Plan: Prescription for Aranesp has been sent to patient's pharmacy and been approved. Need Case Management to get home care for the patient. Patient will need weekly CBC. Aranesp will be given for a hemoglobin less than 11, hold for Hgb 11 or higher. Patient asking for PT, may be this can be done through home care-pt has no tra nsportation. Patient has difficulty with transportation. Possibly the [employer] [facility] [facility] [address] can be utilized for transportation for Dr appeze. Told patient to make sure that he gets his appointment dates and times so rides can be planned for. He verbalized understanding
[2020-11-18] MEDS: ATORVASTATIN 20 MG TAB PO SCH (20:20)
--- NOTE | 2020-11-18 22:40 | P.PN ---
Subjective Progress Note Date: 11/18/20 Principal diagnosis: Acute DVT , COSME Mr. Dumont is a 69-year-old male with a past medical history of heart failure, hypertension, be, CKD stage III, chronic anemia, coronary artery disease status post CABG, peripheral vascular disease, hypertension coming into the hospital with a chief complaint of difficulty in breathing. Patient states that he has been having left-sided chest pain and also complains of increased swelling of his bilateral lower extremities. Patient states that he is noncompliant in taking his medications including his Xarelto for his history of PE. Patient also mentions about drinking alcohol every day, he drinks 6-8 beers. Patient states that he thought he would be having a stroke as he was feeling short of breath with diaphoresis along with these chest pains. He was complaining some tingling and numbness in his fingers and feet on and off. Patient denies having any fevers chills or rigors. No sick contacts. Denies having any cough. No abdominal pain nausea vomiting or diarrhea. Denies having any dysuria or hematuria. In the ER at the time of admission patient's vital signs temperature 97.9, heart rate 94, tachypneic, blood pressure 83/69 saturating at 99% on room air. Patient had a chest x-ray done showing no evidence of cardiopulmonary process he had an EKG showing sinus tachycardia with premature supraventricular complexes. On reviewing his labs white count of 6.4, hemoglobin 8.8, platelets 199. Sodium 135, potassium 3.3, chloride 108, bicarb 15, BUN 13, creatinine 1.52. Lactic acid at the time of admission 5.6, troponin 0 0.710. Albumin 2.9. On 11/16/2020 -patient is seen and examined at the bedside. Patient is a poor historian. He denies having any more hematuria dysuria or increased frequency of urination. Patient had a bowel movement, nurse checked the commode and did not report any blood in his stool. Patient denied having any chest pain or palpitations. He complains of fatigue and weakness. On reviewing his vitals temperature of 98, respiratory rate 18, blood pressure 101/46, heart rate 68, saturating at 93% on 2 L of nasal cannula. On reviewing the patient's labs his hemoglobin is 7. 8, severe macrocytosis with MCV 125. Sodium 136, potassium 3.7, chloride 107, bicarb 27, BUN 22, creatinine 1.71. Albumin 2.6. On 11/17/2020 -patient is seen and examined at the bedside. As per discussion with nursing staff patient's hemoglobin dropped to 6.9 this morning, he received 1 unit of PRBCs. Patient denied having any more hematuria he does not have any chest pain or palpitations. He denies having any abdominal pain nausea vomiting or diarrhea. On reviewing the patient's vitals temperature of 98, heart rate 68, respiratory rate 18, blood pressure 101/46, saturating at 93% on 3 L of nasal cannula. On reviewing the patient's labs white count of 5.5, hemoglobin 9.6, platelets 201. There is marked macrocytosis On 11/18/2020 -patient is seen and examined at the bedside. No acute events reported by nursing staff. He is comfortably lying in bed appears to be no acute distress. He states he has generalized body aches and pains. Patient denies having any fevers chills or rigors. No cough or difficulty breathing. No chest pain or palpitations. No abdominal pain nausea vomiting or diarrhea. Patient denies having any blood in his stools. On reviewing his vitals from this morning temperature of 98.9, heart rate 60, respiratory 16, blood pressure 108 x 78 saturating at 96% on 2 L of nasal cannula honoring the patient's labs white count of 4.7, hemoglobin 9.1, platelets 208 with marked macrocytosis. Patient's medications have been reviewed he is on [place], aspirin, Lipitor, darbepoetin, folic acid, Lasix, Ativan, Toprol, Protonix, thiamine. Objective - Vital Signs Vital signs: Vital Signs Temp 98.8 F 11/18/20 12:00 Pulse 63 11/18/20 12:00 Resp 16 11/18/20 12:00 BP 92/66 11/18/20 12:00 Pulse Ox 94 L 11/18/20 12:00 Intake & Output 11/17/20 11/18/20 11/18/20 18:59 06:59 18:59 Intake Total 744 242.827 240 Output Total 500 300 Balance 244 -57.173 240 Weight 74.5 kg Intake: IV 94 Heparin Sod,Pork in 0.45% 94 NaCl 25,000 unit In 0.45 % NaCl 1 250ml.bag @ 12 UNITS/KG/HR 9.42 mls/hr IV .Q24H [facility] Rx#: [id number] Intake, IV Titration 100 242.827 Amount Heparin Sod,Pork in 0.45% 242.827 NaCl 25,000 unit In 0.45 % NaCl 1 250ml.bag @ 12 UNITS/KG/HR 9.42 mls/hr IV .Q24H [facility] Rx#: [id number] Magnesium Sulfate-D5w Pmx 100 1 gm In Dextrose/Water 1 100ml.bag @ 100 mls/hr IVPB Q1H [facility] Rx#: [id number] Oral 240 240 Blood Product 310 Rc As-1 Unit 310 [id number] Output: Urine 500 300 Other: Voiding Method Urinal Urinal Urinal # Voids 1 # Bowel Movements 1 - Exam PHYSICAL EXAMINATION: GENERAL: poorly kempt and chronically ill appearing HEENT: Pupils are round and equally reacting to light. EOMI. No scleral icterus. no conjunctival pallor. CARDIOVASCULAR: S1 and S2 present. No murmurs, rubs, or gallops. PULMONARY: Diminished breath sounds in all lung landa, crackles at the left lower lung base. ABDOMEN: Soft, nontender, normal bowel sounds. No guarding or rigidity. MUSCULOSKELETAL: No joint swelling or deformity. EXTREMITIES: bilateral leg edema NEUROLOGICAL: AAOX3, Gross neurological examination did not reveal any focal deficits. No active bleeding from any site - Labs CBC & Chem 7: 11/18/20 13:59 11/17/20 03:39 Labs: Abnormal Lab Results - Last 24 Hours (Table) 11/17/20 11/17/20 11/18/20 Range/Units 13:55 17:25 06:28 RBC 2.38 L (4.30-5.90) m/uL Hgb 9.6 L D (13.0-17.5) gm/dL Hct 28.4 L (39.0-53.0) % MCV 119.2 H D (80.0-100.0) fL MCH 40.2 H (25.0-35.0) pg RDW 20.5 H (11.5-15.5) % Macrocytosis Marked A APTT 47.7 H (22.0-30.0) sec Urine Bacteria Few H (None) /hpf Urine Mucus Rare H (None) /hpf Assessment and Plan Assessment: ASSESSMENT Right LE acute on chronic DVT Gross Hematuria Anemia - secondary to hematuria History of PE noncompliant with anticoagulation History of coronary artery disease Elevated troponin Severe Macrocytosis CKD stage III Chronic anemia Hypokalemia Hypomagnesemia Alcohol abuse History of multiple falls Peripheral vascular disease Nicotine dependence Severe protein calorie malnutrition GI prophylaxis DVT - on heparin drip Plan: Patient diagnosed with acute DVT, started on Eliquis, had gross hematuria. Discontinued Eliquis and hematology consulted currently on heparin for a nticoagulation. 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
[2020-11-19] MEDS: THIAMINE 100 MG TAB PO SCH ×2 (06:34→17:03)
[2020-11-19] MEDS: HEPARIN SOD,PORK IN 0.45% NACL 25,000 UNIT in 0.45% NACL 1 250ML.BAG IV SCH (06:34)
[2020-11-19] MEDS: PANTOPRAZOLE 40 MG TABLET PO SCH (06:34)
[2020-11-19] MEDS: ASPIRIN 81 MG PO SCH (08:26)
[2020-11-19] MEDS: METOPROLOL SUCCINATE (ER) 25 MG TAB.ER.24H PO SCH (08:26)
[2020-11-19] MEDS: FOLIC ACID 1 MG TAB PO SCH (08:26)
[2020-11-19] MEDS: FUROSEMIDE 40 MG TAB PO SCH (08:26)
[2020-11-19 09:29] LABS: Calcium 8.2 mg/dL (8.4-10.2)
[2020-11-19 09:35] LABS: Anisocytosis Slight; Basophils % (A) 1 %; Eosinophils # (A) 0.1 k/uL (0-0.7); Eosinophils % (A) 2 %; HCT 24.1 % (39.0-53.0); HGB 8.6 gm/dL (13.0-17.5); Lymphocytes # (A) 1.3 k/uL (1.0-4.8); Lymphocytes % (A) 25 %; MCH 41.8 pg (25.0-35.0); MCHC 35.7 g/dL (31.0-37.0); MCV 117.2 fL (80.0-100.0); Macrocytosis Marked; Mean Platelet Volume 8.2; Monocytes # (A) 0.4 k/uL (0-1.0); Monocytes % (A) 7 %; Neutrophils # (A) 3.4 k/uL (1.3-7.7); Neutrophils % (A) 64 %; Platelet Count 209 k/uL (150-450); RBC 2.06 m/uL (4.30-5.90); RDW 18.7 % (11.5-15.5); WBC 5.3 k/uL (3.8-10.6)
[2020-11-19 11:05] VITALS: BMI 24.1
--- NOTE | 2020-11-19 11:53 | P.NPCON ---
History of Present Illness - Reason for Consult acute renal failure, chronic renal failure - History of Present Illness Reason for consultation: Acute kidney injury on chronic kidney disease. History of present illness: Patient is a 69-year-old male seen in consultation for acute kidney injury on chronic kidney disease. Patient presented to the hospital on 11/14/2020 but shortness of breath. Patient also complained of edema in his legs as well as numbness in his arms and difficulty speaking. He is noted to have right lower extremity DVT and is maintained on anticoagulation. Patient's creatinine on admission was 1.5 to and is up to 1.97 today. Patient does have chronic kidney disease stage IIIB with baseline creatinine near 1.5. UA is benign. Patient's echocardiogram revealed preserved ejection fraction. He underwent CT of the chest abdomen and pelvis this admission which revealed atrophic kidneys without any evidence of hydronephrosis. He is currently maintained on oral Lasix 40 mg once daily. No chest pain or shortness of breath. Blood pressure was low in the systolic 70s to 80s on admission. This morning he was 88/50 and then 104/54. He denies use of nonsteroidals. Denies family history of renal disease. No vomiting or diarrhea. Oral intake is fair. Vital signs are stable. General: The patient appeared well nourished and normally developed. HEENT: Head exam is unremarkable. Neck is without jugular venous distension. LUNGS: Breath sounds decreased. HEART: Rate and Rhythm are regular. ABDOMEN: Soft, no distention. EXTREMITITES: No edema. Past Medical History Past Medical History: Heart Failure, Hypertension, Myocardial Infarction ([place]), Pulmonary Embolus (PE) Additional Past Medical History / Comment(s): Chronic kidney disease stage III, multiple falls, chronic anemia, coronary artery disease, previous bypass surgery, peripheral vascular disease, hypertension, previous history of pulmonar y embolism Last Myocardial Infarction Date:: UNSURE History of Any Multi-Drug Resistant Organisms: None Reported Past Surgical History: Coronary Bypass/CABG, Heart Catheterization With Stent Past Anesthesia/Blood Transfusion Reactions: No Reported Reaction Date of Last Stent Placement:: UNSURE Past Psychological History: No Psychological Hx Reported Smoking Status: Current every day smoker Past Alcohol Use History: Daily Additional Past Alcohol Use History / Comment(s): PT DRINKS 3 SHOTS OF LUPIS POLLARD EVERYDAY Past Drug Use History: None Reported - Past Family History Mother History Unknown: Yes Medications and Allergies Home Medications Medication Instructions Recorded Confirmed Type Aspirin EC [Ecotrin Low Dose] 81 mg PO DAILY 09/04/19 11/14/20 History Metoprolol Succinate (ER) [Toprol 50 mg PO DAILY 09/05/19 11/14/20 History XL] Simvastatin 40 mg PO HS 09/05/19 11/14/20 History Furosemide [Lasix] 40 mg PO DAILY tab 01/12/20 11/14/20 Rx Apixaban [Eliquis] 5 mg PO BID 11/14/20 11/14/20 History amLODIPine [Norvasc] 10 mg PO DAILY 11/14/20 11/14/20 History lisinopriL 20 mg PO DAILY 11/14/20 11/14/20 History Darbepoetin *Esrd* [Aranesp Esrd] 40 mcg SQ Q7D #4 syringe 11/17/20 Rx Folic Acid 1 mg PO DAILY #90 tablet 11/17/20 Rx Allergies Allergy/AdvReac Type Severity Reaction Status Date / Time No Known Allergies Allergy Verified 11/14/20 10:06 Physical Exam Vitals: Vital Signs Temp Pulse Resp BP Pulse Ox 11/19/20 08:23 97.5 F L 67 18 104/54 100 11/19/20 08:00 18 11/19/20 04:00 97.3 F L 69 18 88/50 11/18/20 23:40 61 18 99/53 97 11/18/20 20:00 98.0 F 60 16 134/63 100 11/18/20 16:00 98.9 F 59 L 16 108/58 96 11/18/20 13:33 63 16 11/18/20 12:00 98.8 F 63 16 92/66 94 L Intake and Output 11/18/20 11/19/20 11/19/20 22:59 06:59 14:59 Intake Total 373.843 106.76 83.419 Output Total 1350 650 Balance -976.157 106.76 -566.581 Intake: Intake, IV Titration 133.843 106.76 23.419 Amount Heparin Sod,Pork in 0.45% 133.843 106.76 23.419 NaCl 25,000 unit In 0.45 % NaCl 1 250ml.bag @ 12 UNITS/KG/HR 9.42 mls/hr IV .Q24H [facility] Rx#: [id number] Oral 240 60 Output: Urine 1350 650 Other: # Voids 1 1 # Bowel Movements 1 1 Weight 78.5 kg 78.5 kg Results - Lab Results Most recent lab results Calcium 8.2 mg/dL (8.4-10.2) L 11/19/20 08:09 Magnesium 1.4 mg/dL (1.6-2.3) L 11/17/20 03:39 11/19/20 08:09 11/19/20 08:09 Assessment and Plan Plan: Assessment: 1. Acute kidney injury secondary to ATN secondary to hypotension. Creatinine 1.97 today. UA benign. 2. Chronic kidney disease stage IIIB with baseline creatinine near 1.5 secondary to nephrosclerosis. 3. Right lower extremity DVT maintained on anticoagulation. 4. Anemia of chronic kidney disease maintained on Aranesp. 5. Chronic diastolic CHF. Plan: Maintain oral Lasix. Encourage oral intake. Check a.m. cortisol level. Add midodrine. Check renal ultrasound. Avoid nephrotoxins. Continue to monitor renal function and urine output. Thank you for the consultation. I will continue to follow patient with you during his hospital stay.
[2020-11-19] MEDS: MIDODRINE 5 MG TAB PO SCH ×2 (12:13→17:03)
--- NOTE | 2020-11-19 15:56 | US ---
EXAMINATION TYPE: US kidneys/renal and bladder DATE OF EXAM: 11/19/2020 COMPARISON: CT 2020, US 2019 CLINICAL HISTORY: chu. Exam done portable. EXAM MEASUREMENTS: Right Kidney: 9.1 x 5.0 x 4.9 cm 118 mL volume Left Kidney: 10.5 x 5.6 x 4.9 cm 151 mL volume Right Kidney: Mild cortical thinning Left Kidney: Mild cortical thinning Bladder: wnl Bilateral Jets seen: no The ureteral jets are not visualized. No hydronephrosis or renal calculi. IMPRESSION: 1. No hydronephrosis or renal calculi. 2. Bilateral mild cortical renal thinning. 3. The ureteral jets are not visualized.
--- NOTE | 2020-11-19 16:26 | P.PN ---
Subjective Progress Note Date: 11/19/20 Is awaiting discharge. No new complaints other than urinary frequency. He denies any obvious bleeding, specifically hematuria. Objective - Vital Signs Vital signs: Vital Signs Temp 98.0 F 11/19/20 16:00 Pulse 62 11/19/20 16:00 Resp 16 11/19/20 16:00 BP 130/57 11/19/20 16:00 Pulse Ox 100 11/19/20 16:00 Intake & Output 11/18/20 11/19/20 11/19/20 18:59 06:59 18:59 Intake Total 853.843 106.76 323.419 Output Total 1050 300 975 Balance -196.157 -193.24 -651.581 Weight 78.5 kg 78.5 kg Intake: Intake, IV Titration 133.843 106.76 23.419 Amount Heparin Sod,Pork in 0.45% 133.843 106.76 23.419 NaCl 25,000 unit In 0.45 % NaCl 1 250ml.bag @ 12 UNITS/KG/HR 9.42 mls/hr IV .Q24H [facility] Rx#: [id number] Oral 720 300 Output: Urine 1050 300 975 Other: Voiding Method Urinal # Voids 1 # Bowel Movements 1 1 1 - Constitutional General appearance: Present: no acute distress - EENT Eyes: Present: EOMI ENT: Present: hearing grossly normal, normal oropharynx - Respiratory Respiratory: bilateral: CTA - Cardiovascular Rhythm: regular Heart sounds: normal: S1, S2 - Gastrointestinal General gastrointestinal: Present: normal bowel sounds, soft - Labs CBC & Chem 7: 11/19/20 08:09 11/19/20 08:09 Labs: Abnormal Lab Results - Last 24 Hours (Table) 11/19/20 11/19/20 11/19/20 Range/Units 08:09 08:09 08:09 RBC 2.06 L (4.30-5.90) m/uL Hgb 8.6 L (13.0-17.5) gm/dL Hct 24.1 L (39.0-53.0) % MCV 117.2 H (80.0-100.0) fL MCH 41.8 H (25.0-35.0) pg RDW 18.7 H (11.5-15.5) % Macrocytosis Marked A APTT 37.9 H (22.0-30.0) sec Sodium 133 L (137-145) mmol/L BUN 26 H (9-20) mg/dL Creatinine 1.97 H (0.66-1.25) mg/dL Glucose 122 H (74-99) mg/dL Calcium 8.2 L (8.4-10.2) mg/dL Assessment and Plan (1) DVT (deep venous thrombosis) Narrative/Plan: The patient had an acute on chronic event because he was noncompliant with his medication. He is currently on IV heparin. He will be switched back to request at the time of discharge. I again strongly urged compliance with medication and the dangers of not taking it regularly, including possible from PE. He expressed understanding and stated that he will be compliant in the future. Current Visit: Yes Status: Acute Priority: High Code(s): I82.409 - ACUTE EMBOLISM AND THOMBOS UNSP DEEP VN UNSP LOWER EXTREMITY SNOMED Code(s): 599682408 (2) Anemia Narrative/Plan: Workup so far appears to indicate most likely anemia of chronic kidney disease. The office has arranged for LISA at home for him, along with home care, who can administer the injections once a week and check his CBC. Up in the office in about 4-5 weeks to assess response. This plan was also discussed with him. Current Visit: No Status: Acute Code(s): D64.9 - ANEMIA, UNSPECIFIED SNOMED Code(s): 203011339 (3) Hematuria Narrative/Plan: He has been seen by urology with plans for outpatient cystoscopy Current Visit: Yes Status: Acute Code(s): R31.9 - HEMATURIA, UNSPECIFIED SNOMED Code(s): 35493655 Plan: The patient has also been seen by nephrology in consult will presumably the Outpatient follow-up for his CKD
[2020-11-19] MEDS: HYDROcodone/APAP 5-325MG 1 EACH TAB PO PRN (19:33)
[2020-11-19] MEDS: ATORVASTATIN 20 MG TAB PO SCH (20:43)
--- NOTE | 2020-11-20 00:48 | P.PN ---
Subjective Progress Note Date: 11/19/20 Principal diagnosis: Acute DVT , COSME Mr. Dumont is a 69-year-old male with a past medical history of heart failure, hypertension, be, CKD stage III, chronic anemia, coronary artery disease status post CABG, peripheral vascular disease, hypertension coming into the hospital with a chief complaint of difficulty in breathing. Patient states that he has been having left-sided chest pain and also complains of increased swelling of his bilateral lower extremities. Patient states that he is noncompliant in taking his medications including his Xarelto for his history of PE. Patient also mentions about drinking alcohol every day, he drinks 6-8 beers. Patient states that he thought he would be having a stroke as he was feeling short of breath with diaphoresis along with these chest pains. He was complaining some tingling and numbness in his fingers and feet on and off. Patient denies having any fevers chills or rigors. No sick contacts. Denies having any cough. No abdominal pain nausea vomiting or diarrhea. Denies having any dysuria or hematuria. In the ER at the time of admission patient's vital signs temperature 97.9, heart rate 94, tachypneic, blood pressure 83/69 saturating at 99% on room air. Patient had a chest x-ray done showing no evidence of cardiopulmonary process he had an EKG showing sinus tachycardia with premature supraventricular complexes. On reviewing his labs white count of 6.4, hemoglobin 8.8, platelets 199. Sodium 135, potassium 3.3, chloride 108, bicarb 15, BUN 13, creatinine 1.52. Lactic acid at the time of admission 5.6, troponin 0 0.710. Albumin 2.9. On 11/16/2020 -patient is seen and examined at the bedside. Patient is a poor historian. He denies having any more hematuria dysuria or increased frequency of urination. Patient had a bowel movement, nurse checked the commode and did not report any blood in his stool. Patient denied having any chest pain or palpitations. He complains of fatigue and weakness. On reviewing his vitals temperature of 98, respiratory rate 18, blood pressure 101/46, heart rate 68, saturating at 93% on 2 L of nasal cannula. On reviewing the patient's labs his hemoglobin is 7. 8, severe macrocytosis with MCV 125. Sodium 136, potassium 3.7, chloride 107, bicarb 27, BUN 22, creatinine 1.71. Albumin 2.6. On 11/17/2020 -patient is seen and examined at the bedside. As per discussion with nursing staff patient's hemoglobin dropped to 6.9 this morning, he received 1 unit of PRBCs. Patient denied having any more hematuria he does not have any chest pain or palpitations. He denies having any abdominal pain nausea vomiting or diarrhea. On reviewing the patient's vitals temperature of 98, heart rate 68, respiratory rate 18, blood pressure 101/46, saturating at 93% on 3 L of nasal cannula. On reviewing the patient's labs white count of 5.5, hemoglobin 9.6, platelets 201. There is marked macrocytosis On 11/18/2020 -patient is seen and examined at the bedside. No acute events reported by nursing staff. He is comfortably lying in bed appears to be no acute distress. He states he has generalized body aches and pains. Patient denies having any fevers chills or rigors. No cough or difficulty breathing. No chest pain or palpitations. No abdominal pain nausea vomiting or diarrhea. Patient denies having any blood in his stools. On reviewing his vitals from this morning temperature of 98.9, heart rate 60, respiratory 16, blood pressure 108 x 78 saturating at 96% on 2 L of nasal cannula honoring the patient's labs white count of 4.7, hemoglobin 9.1, platelets 208 with marked macrocytosis. On 11/19/2020 -patient is comfortably lying in bed appears to be in no acute distress. He complains of generalized body aches and pains but denies having any fevers chills or rigors. No chest pain or palpitations. Patient denies having any blood in his urine or blood in his stool. Patient continues to be on heparin for anticoagulation. On reviewing the vitals temperature of 98, respiratory rate 16, heart rate 62, blood pressure 130/57, saturating at 100% on room air. On reviewing the labs from this morning white count of 5.3, hemoglobin 8.2, platelets 219. Sodium 133, potassium 5, chloride 105, bicarb 25, BUN 26, creatinine 1.97. Patient had an abdominal ultrasound showing no hydronephrosis or renal calculi and bilateral mild cortical renal thinning. Patient's medications have been reviewed he is on [place], aspirin, Lipitor, darbepoetin, folic acid, Lasix heparin drip, Ativan, metoprolol, midodrine, Protonix, thiamine Objective - Vital Signs Vital signs: Vital Signs Temp 98.0 F 11/19/20 12:27 Pulse 57 L 11/19/20 12:27 Resp 16 11/19/20 13:02 BP 117/58 11/19/20 12:27 Pulse Ox 97 11/19/20 12:27 Intake & Output 11/18/20 11/19/20 11/19/20 18:59 06:59 18:59 Intake Total 853.843 106.76 83.419 Output Total 1050 300 650 Balance -196.157 -193.24 -566.581 Weight 78.5 kg 78.5 kg Intake: Intake, IV Titration 133.843 106.76 23.419 Amount Heparin Sod,Pork in 0.45% 133.843 106.76 23.419 NaCl 25,000 unit In 0.45 % NaCl 1 250ml.bag @ 12 UNITS/KG/HR 9.42 mls/hr IV .Q24H [facility] Rx#: [id number] Oral 720 60 Output: Urine 1050 300 650 Other: Voiding Method Urinal # Voids 1 # Bowel Movements 1 1 1 - Exam PHYSICAL EXAMINATION: GENERAL: poorly kempt and chronically ill appearing HEENT: Pupils are round and equally reacting to light. EOMI. No scleral icterus. no conjunctival pallor. CARDIOVASCULAR: S1 and S2 present. No murmurs, rubs, or gallops. PULMONARY: Diminished breath sounds in all lung landa, crackles at the left lower lung base. ABDOMEN: Soft, nontender, normal bowel sounds. No guarding or rigidity. MUSCULOSKELETAL: No joint swelling or deformity. EXTREMITIES: bilateral leg edema NEUROLOGICAL: AAOX3, Gross neurological examination did not reveal any focal deficits. No active bleeding from any site - Labs CBC & Chem 7: 11/19/20 08:09 11/19/20 08:09 Labs: Abnormal Lab Results - Last 24 Hours (Table) 11/18/20 11/19/20 11/19/20 Range/Units 13:59 08:09 08:09 RBC 2.24 L 2.06 L (4.30-5.90) m/uL Hgb 9.1 L 8.6 L (13.0-17.5) gm/dL Hct 26.9 L 24.1 L (39.0-53.0) % MCV 120.1 H 117.2 H (80.0-100.0) fL MCH 40.7 H 41.8 H (25.0-35.0) pg RDW 19.8 H 18.7 H (11.5-15.5) % Macrocytosis Marked A Marked A APTT 37.9 H (22.0-30.0) sec Sodium (137-145) mmol/L BUN (9-20) mg/dL Creatinine (0.66-1.25) mg/dL Glucose (74-99) mg/dL Calcium (8.4-10.2) mg/dL 11/19/20 Range/Units 08:09 RBC (4.30-5.90) m/uL Hgb (13.0-17.5) gm/dL Hct (39.0-53.0) % MCV (80.0-100.0) fL MCH (25.0-35.0) pg RDW (11.5-15.5) % Macrocytosis APTT (22.0-30.0) sec Sodium 133 L (137-145) mmol/L BUN 26 H (9-20) mg/dL Creatinine 1.97 H (0.66-1.25) mg/dL Glucose 122 H (74-99) mg/dL Calcium 8.2 L (8.4-10.2) mg/dL Assessment and Plan Assessment: ASSESSMENT Right LE acute on chronic DVT Gross Hematuria - resolved Anemia - secondary to hematuria COSME History of PE noncompliant with anticoagulation History of coronary artery disease Elevated troponin Severe Macrocytosis CKD stage III Chronic anemia Hypokalemia Hypomagnesemia Alcohol abuse History of multiple falls Peripheral vascular disease Nicotine dependence Severe protein calorie malnutrition GI prophylaxis DVT - on heparin drip Plan: Patient diagnosed with acute DVT, started on Eliquis, had gross hematuria. Discontinued Eliquis and hematology consulted currently on heparin for anticoagulation. 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
[2020-11-20] MEDS: THIAMINE 100 MG TAB PO SCH ×2 (06:16→16:44)
[2020-11-20] MEDS: MIDODRINE 5 MG TAB PO SCH ×3 (06:17→16:44)
[2020-11-20] MEDS: PANTOPRAZOLE 40 MG TABLET PO SCH (06:17)
[2020-11-20] MEDS: HEPARIN SOD,PORK IN 0.45% NACL 25,000 UNIT in 0.45% NACL 1 250ML.BAG IV SCH (06:17)
[2020-11-20] MEDS: FUROSEMIDE 40 MG TAB PO SCH (08:20)
[2020-11-20] MEDS: FOLIC ACID 1 MG TAB PO SCH (08:20)
[2020-11-20] MEDS: METOPROLOL SUCCINATE (ER) 25 MG TAB.ER.24H PO SCH (08:20)
[2020-11-20] MEDS: ASPIRIN 81 MG PO SCH (08:20)
--- NOTE | 2020-11-20 09:42 | P.PN ---
Subjective Acute DVT , COSME Mr. Dumont is a 69-year-old male with a past medical history of heart failure, hypertension, be, CKD stage III, chronic anemia, coronary artery disease status post CABG, peripheral vascular disease, hypertension coming into the hospital with a chief complaint of difficulty in breathing. Patient states that he has been having left-sided chest pain and also complains of increased swelling of his bilateral lower extremities. Patient states that he is noncompliant in taking his medications including his Xarelto for his history of PE. Patient also mentions about drinking alcohol every day, he drinks 6-8 beers. Patient states that he thought he would be having a stroke as he was feeling short of breath with diaphoresis along with these chest pains. He was complaining some tingling and numbness in his fingers and feet on and off. Patient denies having any fevers chills or rigors. No sick contacts. Denies having any cough. No abdominal pain nausea vomiting or diarrhea. Denies having any dysuria or hemat uria. In the ER at the time of admission patient's vital signs temperature 97.9, heart rate 94, tachypneic, blood pressure 83/69 saturating at 99% on room air. Patient had a chest x-ray done showing no evidence of cardiopulmonary process he had an EKG showing sinus tachycardia with premature supraventricular complexes. On reviewing his labs white count of 6.4, hemoglobin 8.8, platelets 199. Sodium 135, potassium 3.3, chloride 108, bicarb 15, BUN 13, creatinine 1.52. Lactic acid at the time of admission 5.6, troponin 0 0.710. Albumin 2.9. On 11/16/2020 -patient is seen and examined at the bedside. Patient is a poor historian. He denies having any more hematuria dysuria or increased frequency of urination. Patient had a bowel movement, nurse checked the commode and did not report any blood in his stool. Patient denied having any chest pain or palpitations. He complains of fatigue and weakness. On reviewing his vitals temperature of 98, respiratory rate 18, blood pressure 101/46, heart rate 68, saturating at 93% on 2 L of nasal cannula. On reviewing the patient's labs his hemoglobin is 7. 8, severe macrocytosis with MCV 125. Sodium 136, potassium 3. 7, chloride 107, bicarb 27, BUN 22, creatinine 1.71. Albumin 2.6. On 11/17/2020 -patient is seen and examined at the bedside. As per discussion with nursing staff patient's hemoglobin dropped to 6.9 this morning, he received 1 unit of PRBCs. Patient denied having any more hematuria he does not have any chest pain or palpitations. He denies having any abdominal pain nausea vomiting or diarrhea. On reviewing the patient's vitals temperature of 98, heart rate 68, respiratory rate 18, blood pressure 101/46, saturating at 93% on 3 L of nasal cannula. On reviewing the patient's labs white count of 5.5, hemoglobin 9.6, platelets 201. There is marked macrocytosis On 11/18/2020 -patient is seen and examined at the bedside. No acute events reported by nursing staff. He is comfortably lying in bed appears to be no acute distress. He states he has generalized body aches and pains. Patient denies having any fevers chills or rigors. No cough or difficulty breathing. No chest pain or palpitations. No abdominal pain nausea vomiting or diarrhea. Patient denies having any blood in his stools. On reviewing his vitals from this morning temperature of 98.9, heart rate 60, respiratory 16, blood pressure 108 x 78 saturating at 96% on 2 L of nasal cannula honoring the patient's labs white count of 4.7, hemoglobin 9.1, platelets 208 with marked macrocytosis. On 11/19/2020 -patient is comfortably lying in bed appears to be in no acute distress. He complains of generalized body aches and pains but denies having any fevers chills or rigors. No chest pain or palpitations. Patient denies having any blood in his urine or blood in his stool. Patient continues to be on heparin for anticoagulation. On reviewing the vitals temperature of 98, respiratory rate 16, heart rate 62, blood pressure 130/57, saturating at 100% on room air. On reviewing the labs from this morning white count of 5.3, hemoglobin 8.2, platelets 219. Sodium 133, potassium 5, chloride 105, bicarb 25, BUN 26, creatinine 1.97. Patient had an abdominal ultrasound showing no hydronephrosis or renal calculi and bilateral mild cortical renal thinning. 11/20/2020 Patient remains on IV heparin no more hematuria. Patient had acute renal failure which I believe secondary to excess diuresis as there is no evidence of heart failure on admission are now because of that I'll discontinue oral Lasix will repeat the basic metabolic profile tomorrow unfortunately patient already received Lasix today. Patient's medications have been reviewed he is on [place], aspirin, Lipitor, darbepoetin, folic acid, Lasix heparin drip, Ativan, metoprolol, midodrine, Protonix, thiamine. PHYSICAL EXAMINATION: GENERAL: poorly kempt and chronically ill appearing HEENT: Pupils are round and equally reacting to light. EOMI. No scleral icterus. no conjunctival pallor. CARDIOVASCULAR: S1 and S2 present. No murmurs, rubs, or gallops. PULMONARY: Diminished breath sounds in all lung landa, crackles at the left lower lung base. ABDOMEN: Soft, nontender, normal bowel sounds. No guarding or rigidity. MUSCULOSKELETAL: No joint swelling or deformity. EXTREMITIES: bilateral leg edema NEUROLOGICAL: AAOX3, Gross neurological examination did not reveal any focal deficits. No active bleeding from any site Assessment and Plan Assessment: Right LE acute on chronic DVT : On IV heparin patient had gross hematuria which improved at this time outpatient cystoscopy when patient is ready to be discharged patient will be discharged on Eliquis Gross Hematuria - resolved Anemia - secondary to hematuria COSME History of PE noncompliant with anticoagulation History of coronary artery disease Elevated troponin Severe Macrocytosis: Secondary to alcohol abuse CKD stage III : Patient's baseline creatinine is around 1.4 presently went up to 1.7 secondary to excessive diuresis patient is not in heart failure Lasix will be discontinued no evidence of diastolic dysfunction at this time. Chronic anemia Hypokalemia Hypomagnesemia Alcohol abuse: Not having any withdrawal sex counseling was provided to quit alcohol History of multiple falls Peripheral vascular disease Nicotine dependence Severe protein calorie malnutrition GI prophylaxis DVT - on heparin drip Objective - Vital Signs Vital signs: Vital Signs Temp 96.7 F L 11/20/20 08:00 Pulse 62 11/20/20 08:00 Resp 16 11/20/20 08:00 BP 98/55 11/20/20 08:00 Pulse Ox 100 11/20/20 08:00 Intake & Output 11/19/20 11/20/20 11/20/20 18:59 06:59 18:59 Intake Total 563.419 275.308 118 Output Total 1375 350 Balance -811.581 -74.692 118 Weight 78.5 kg 79 kg Intake: IV 80 0.9 80 Intake, IV Titration 23.419 195.308 Amount Heparin Sod,Pork in 0.45% 23.419 195.308 NaCl 25,000 unit In 0.45 % NaCl 1 250ml.bag @ 12 UNITS/KG/HR 9.42 mls/hr IV .Q24H [facility] Rx#: [id number] Oral 540 118 Output: Urine 1375 350 Other: Voiding Method Urinal # Voids 1 # Bowel Movements 1 - Labs CBC & Chem 7: 11/19/20 08:09 11/19/20 08:09 Labs: Abnormal Lab Results - Last 24 Hours (Table) 11/19/20 11/19/20 Range/Units 08:09 16:29 RBC 2.06 L (4.30-5.90) m/uL Hgb 8.6 L (13.0-17.5) gm/dL Hct 24.1 L (39.0-53.0) % MCV 117.2 H (80.0-100.0) fL MCH 41.8 H (25.0-35.0) pg RDW 18.7 H (11.5-15.5) % Macrocytosis Marked A APTT 52.9 H (22.0-30.0) sec
--- NOTE | 2020-11-20 09:53 | P.PN ---
Subjective Patient is seen in follow for acute kidney injury and chronic kidney disease. Creatinine 1.97 as of yesterday. Has been voiding. No vomiting or diarrhea. Oral intake fair. Vital signs are stable. General: The patient appeared well nourished and normally developed. HEENT: Head exam is unremarkable. Neck is without jugular venous distension. LUNGS: Breath sounds decreased. HEART: Rate and Rhythm are regular. ABDOMEN: Soft, no distention. EXTREMITITES: No edema. Objective - Vital Signs Vital signs: Vital Signs Temp 96.7 F L 11/20/20 08:00 Pulse 62 11/20/20 08:00 Resp 16 11/20/20 08:00 BP 98/55 11/20/20 08:00 Pulse Ox 100 11/20/20 08:00 Intake & Output 11/19/20 11/20/20 11/20/20 18:59 06:59 18:59 Intake Total 563.419 275.308 118 Output Total 1375 350 Balance -811.581 -74.692 118 Weight 78.5 kg 79 kg Intake: IV 80 0.9 80 Intake, IV Titration 23.419 195.308 Amount Heparin Sod,Pork in 0.45% 23.419 195.308 NaCl 25,000 unit In 0.45 % NaCl 1 250ml.bag @ 12 UNITS/KG/HR 9.42 mls/hr IV .Q24H [facility] Rx#: [id number] Oral 540 118 Output: Urine 1375 350 Other: Voiding Method Urinal # Voids 1 # Bowel Movements 1 - Labs CBC & Chem 7: 11/19/20 08:09 11/19/20 08:09 Labs: Abnormal Lab Results - Last 24 Hours (Table) 11/19/20 11/19/20 Range/Units 08:09 16:29 RBC 2.06 L (4.30-5.90) m/uL Hgb 8.6 L (13.0-17.5) gm/dL Hct 24.1 L (39.0-53.0) % MCV 117.2 H (80.0-100.0) fL MCH 41.8 H (25.0-35.0) pg RDW 18.7 H (11.5-15.5) % Macrocytosis Marked A APTT 52.9 H (22.0-30.0) sec Assessment and Plan Plan: Assessment: 1. Acute kidney injury secondary to ATN secondary to hypotension. Creatinine 1.97 yesterday. UA benign. No hydronephrosis noted on kidney ultrasound. 2. Chronic kidney disease stage IIIB with baseline creatinine near 1.5 secondary to nephrosclerosis. 3. Right lower extremity DVT maintained on anticoagulation. 4. Anemia of chronic kidney disease maintained on Aranesp. 5. Chronic diastolic CHF. Plan: Hold diuretics. Encourage oral intake. Follow-up cortisol level. Maintain midodrine. Avoid nephrotoxins. Continue to monitor renal function and urine output.
[2020-11-20 11:48] LABS: Calcium 8.4 mg/dL (8.4-10.2); Magnesium 1.6 mg/dL (1.6-2.3); Potassium 4.1 mmol/L (3.5-5.1)
[2020-11-20 12:24] LABS: Anisocytosis Slight; Basophils % (A) 1 %; Eosinophils # (A) 0.1 k/uL (0-0.7); Eosinophils % (A) 3 %; HCT 25.2 % (39.0-53.0); HGB 8.4 gm/dL (13.0-17.5); Lymphocytes # (A) 1.3 k/uL (1.0-4.8); Lymphocytes % (A) 25 %; MCH 40.4 pg (25.0-35.0); MCHC 33.2 g/dL (31.0-37.0); MCV 121.6 fL (80.0-100.0); Macrocytosis Marked; Mean Platelet Volume 8.5; Monocytes # (A) 0.3 k/uL (0-1.0); Monocytes % (A) 6 %; Neutrophils # (A) 3.1 k/uL (1.3-7.7); Neutrophils % (A) 62 %; Platelet Count 225 k/uL (150-450); RBC 2.07 m/uL (4.30-5.90); RDW 19.2 % (11.5-15.5); WBC 4.9 k/uL (3.8-10.6)
[2020-11-20] MEDS: HYDROcodone/APAP 5-325MG 1 EACH TAB PO PRN (19:48)
[2020-11-20] MEDS: ATORVASTATIN 20 MG TAB PO SCH (19:48)
[2020-11-21] MEDS: HEPARIN SOD,PORK IN 0.45% NACL 25,000 UNIT in 0.45% NACL 1 250ML.BAG IV SCH (06:04)
[2020-11-21] MEDS: THIAMINE 100 MG TAB PO SCH ×2 (06:04→16:15)
[2020-11-21] MEDS: PANTOPRAZOLE 40 MG TABLET PO SCH (06:04)
[2020-11-21] MEDS: MIDODRINE 5 MG TAB PO SCH ×3 (06:04→16:15)
[2020-11-21] MEDS ORDERED: SODIUM CHLORIDE 0.9% 1,000 ML IV SCH (07:15)
--- NOTE | 2020-11-21 07:15 | P.PN ---
Subjective Acute DVT , COSME Mr. Dumont is a 69-year-old male with a past medical history of heart failure, hypertension, be, CKD stage III, chronic anemia, coronary artery disease status post CABG, peripheral vascular disease, hypertension coming into the hospital with a chief complaint of difficulty in breathing. Patient states that he has been having left-sided chest pain and also complains of increased swelling of his bilateral lower extremities. Patient states that he is noncompliant in taking his medications including his Xarelto for his history of PE. Patient also mentions about drinking alcohol every day, he drinks 6-8 beers. Patient states that he thought he would be having a stroke as he was feeling short of breath with diaphoresis along with these chest pains. He was complaining some tingling and numbness in his fingers and feet on and off. Patient denies having any fevers chills or rigors. No sick contacts. Denies having any cough. No abdominal pain nausea vomiting or diarrhea. Denies having any dysuria or hemat uria. In the ER at the time of admission patient's vital signs temperature 97.9, heart rate 94, tachypneic, blood pressure 83/69 saturating at 99% on room air. Patient had a chest x-ray done showing no evidence of cardiopulmonary process he had an EKG showing sinus tachycardia with premature supraventricular complexes. On reviewing his labs white count of 6.4, hemoglobin 8.8, platelets 199. Sodium 135, potassium 3.3, chloride 108, bicarb 15, BUN 13, creatinine 1.52. Lactic acid at the time of admission 5.6, troponin 0 0.710. Albumin 2.9. On 11/16/2020 -patient is seen and examined at the bedside. Patient is a poor historian. He denies having any more hematuria dysuria or increased frequency of urination. Patient had a bowel movement, nurse checked the commode and did not report any blood in his stool. Patient denied having any chest pain or palpitations. He complains of fatigue and weakness. On reviewing his vitals temperature of 98, respiratory rate 18, blood pressure 101/46, heart rate 68, saturating at 93% on 2 L of nasal cannula. On reviewing the patient's labs his hemoglobin is 7. 8, severe macrocytosis with MCV 125. Sodium 136, potassium 3. 7, chloride 107, bicarb 27, BUN 22, creatinine 1.71. Albumin 2.6. On 11/17/2020 -patient is seen and examined at the bedside. As per discussion with nursing staff patient's hemoglobin dropped to 6.9 this morning, he received 1 unit of PRBCs. Patient denied having any more hematuria he does not have any chest pain or palpitations. He denies having any abdominal pain nausea vomiting or diarrhea. On reviewing the patient's vitals temperature of 98, heart rate 68, respiratory rate 18, blood pressure 101/46, saturating at 93% on 3 L of nasal cannula. On reviewing the patient's labs white count of 5.5, hemoglobin 9.6, platelets 201. There is marked macrocytosis On 11/18/2020 -patient is seen and examined at the bedside. No acute events reported by nursing staff. He is comfortably lying in bed appears to be no acute distress. He states he has generalized body aches and pains. Patient denies having any fevers chills or rigors. No cough or difficulty breathing. No chest pain or palpitations. No abdominal pain nausea vomiting or diarrhea. Patient denies having any blood in his stools. On reviewing his vitals from this morning temperature of 98.9, heart rate 60, respiratory 16, blood pressure 108 x 78 saturating at 96% on 2 L of nasal cannula honoring the patient's labs white count of 4.7, hemoglobin 9.1, platelets 208 with marked macrocytosis. On 11/19/2020 -patient is comfortably lying in bed appears to be in no acute distress. He complains of generalized body aches and pains but denies having any fevers chills or rigors. No chest pain or palpitations. Patient denies having any blood in his urine or blood in his stool. Patient continues to be on heparin for anticoagulation. On reviewing the vitals temperature of 98, respiratory rate 16, heart rate 62, blood pressure 130/57, saturating at 100% on room air. On reviewing the labs from this morning white count of 5.3, hemoglobin 8.2, platelets 219. Sodium 133, potassium 5, chloride 105, bicarb 25, BUN 26, creatinine 1.97. Patient had an abdominal ultrasound showing no hydronephrosis or renal calculi and bilateral mild cortical renal thinning. 11/20/2020 Patient remains on IV heparin no more hematuria. Patient had acute renal failure which I believe secondary to excess diuresis as there is no evidence of heart failure on admission are now because of that I'll discontinue oral Lasix will repeat the basic metabolic profile tomorrow unfortunately patient already received Lasix today. 11/21/2020 Patient's hematuria resolved and patient creatinine improved today, patient is not volume overloaded Lasix was discontinued yesterday. In fact I'll give him fluids at 75 mL per hour once his creatinine improves his bleeding risk will be lesser with the Eliquis. Hoping that his creatinine will improve by tomorrow with IV fluids patient can be started on Eliquis tomorrow we'll leave him on heparin for today. She doesn't have any withdrawals patient feels much better today. Constitutional: Denied any fatigue denied any fever. Cardio vascular: denied any chest pain, palpitations Gastrointestinal denied any nausea vomiting Pulmonary: Denied any shortness of breath cough Neurologic denied any new focal deficits All inpatient medications were reviewed and appropriate changes in these medications as dictated in the interval history and assessment and plan. Patient's medications have been reviewed he is on Starbuck, aspirin, Lipitor, darbepoetin, folic acid, heparin drip, Ativan, metoprolol, midodrine, Protonix, thiamine. PHYSICAL EXAMINATION: GENERAL: poorly kempt and chronically ill appearing HEENT: Pupils are round and equally reacting to light. EOMI. No scleral icterus. no conjunctival pallor. CARDIOVASCULAR: S1 and S2 present. No murmurs, rubs, or gallops. PULMONARY: Diminished breath sounds in all lung landa, crackles at the left lower lung base. ABDOMEN: Soft, nontender, normal bowel sounds. No guarding or rigidity. MUSCULOSKELETAL: No joint swelling or deformity. EXTREMITIES: bilateral leg edema NEUROLOGICAL: AAOX3, Gross neurological examination did not reveal any focal deficits. No active bleeding from any site Assessment and Plan Assessment: Right LE acute on chronic DVT : On IV heparin patient had gross hematuria which improved at this time outpatient cystoscopy when patient is ready to be discharged patient will be discharged on Eliquis Gross Hematuria - resolved Anemia - secondary to hematuria COSME History of PE noncompliant with anticoagulation History of coronary artery disease Elevated troponin Severe Macrocytosis: Secondary to alcohol abuse CKD stage III : Patient's baseline creatinine is around 1.4 presently went up to 1.7 secondary to excessive diuresis patient is not in heart failure Lasix was discontinued patient will be started on IV fluids Chronic anemia Hypokalemia Hypomagnesemia Alcohol abuse: Not having any withdrawal sex counseling was provided to quit alcohol History of multiple falls Peripheral vascular disease Nicotine dependence No malnutrition GI prophylaxis DVT - on heparin drip Objective - Vital Signs Vital signs: Vital Signs Temp 97.5 F L 11/21/20 03:16 Pulse 51 L 11/21/20 03:16 Resp 18 11/21/20 03:16 BP 103/51 11/21/20 06:03 Pulse Ox 95 11/21/20 03:16 Intake & Output 11/20/20 11/21/20 11/21/20 18:59 06:59 18:59 Intake Total 516 304.039 Output Total 800 400 Balance -284 -95.961 Weight 79 kg Intake: IV 160 80 0.9 80 80 Heparin Sod,Pork in 0.45% 80 NaCl 25,000 unit In 0.45 % NaCl 1 250ml.bag @ 12 UNITS/KG/HR 9.42 mls/hr IV .Q24H TAMMY Rx#: [id number] Intake, IV Titration 224.039 Amount Heparin Sod,Pork in 0.45% 224.039 NaCl 25,000 unit In 0.45 % NaCl 1 250ml.bag @ 12 UNITS/KG/HR 9.42 mls/hr IV .Q24H TAMMY Rx#: [id number] Oral 356 Output: Urine 800 400 Other: Voiding Method Urinal Urinal # Voids 1 0 # Bowel Movements 1 - Labs CBC & Chem 7: 11/20/20 10:22 11/20/20 10:22 Labs: Abnormal Lab Results - Last 24 Hours (Table) 11/20/20 11/20/20 11/20/20 Range/Units 10:22 10:22 10:22 RBC 2.07 L (4.30-5.90) m/uL Hgb 8.4 L (13.0-17.5) gm/dL Hct 25.2 L (39.0-53.0) % MCV 121.6 H (80.0-100.0) fL MCH 40.4 H (25.0-35.0) pg RDW 19.2 H (11.5-15.5) % Macrocytosis Marked A APTT 54.0 H (22.0-30.0) sec Sodium 133 L (137-145) mmol/L BUN 26 H (9-20) mg/dL Creatinine 1.85 H (0.66-1.25) mg/dL
[2020-11-21] MEDS: ASPIRIN 81 MG PO SCH (09:33)
[2020-11-21] MEDS: FOLIC ACID 1 MG TAB PO SCH (09:34)
[2020-11-21] MEDS: METOPROLOL SUCCINATE (ER) 25 MG TAB.ER.24H PO SCH (09:34)
--- NOTE | 2020-11-21 09:48 | P.PN ---
Subjective Patient is seen in follow for acute kidney injury and chronic kidney disease. Creatinine 1.85 as of yesterday. Has been voiding. No vomiting or diarrhea. Oral intake fair. No active complaints. Vital signs are stable. General: The patient appeared well nourished and normally developed. HEENT: Head exam is unremarkable. Neck is without jugular venous distension. LUNGS: Breath sounds decreased. HEART: Rate and Rhythm are regular. ABDOMEN: Soft, no distention. EXTREMITITES: No edema. Objective - Vital Signs Vital signs: Vital Signs Temp 97.7 F 11/21/20 09:22 Pulse 52 L 11/21/20 09:22 Resp 16 11/21/20 09:22 BP 107/55 11/21/20 09:22 Pulse Ox 96 11/21/20 09:22 Intake & Output 11/20/20 11/21/20 11/21/20 18:59 06:59 18:59 Intake Total 516 304.039 240 Output Total 800 400 Balance -284 -95.961 240 Weight 79 kg Intake: IV 160 80 0.9 80 80 Heparin Sod,Pork in 0.45% 80 NaCl 25,000 unit In 0.45 % NaCl 1 250ml.bag @ 12 UNITS/KG/HR 9.42 mls/hr IV .Q24H TAMMY Rx#: [id number] Intake, IV Titration 224.039 Amount Heparin Sod,Pork in 0.45% 224.039 NaCl 25,000 unit In 0.45 % NaCl 1 250ml.bag @ 12 UNITS/KG/HR 9.42 mls/hr IV .Q24H TAMMY Rx#: [id number] Oral 356 240 Output: Urine 800 400 Other: Voiding Method Urinal Urinal # Voids 1 0 # Bowel Movements 1 - Labs CBC & Chem 7: 11/20/20 10:22 11/20/20 10:22 Labs: Abnormal Lab Results - Last 24 Hours (Table) 11/20/20 11/20/20 11/20/20 Range/Units 10: 10: 10:22 RBC 2.07 L (4.30-5.90) m/uL Hgb 8.4 L (13.0-17.5) gm/dL Hct 25.2 L (39.0-53.0) % MCV 121.6 H (80.0-100.0) fL MCH 40.4 H (25.0-35.0) pg RDW 19.2 H (11.5-15.5) % Macrocytosis Marked A APTT 54.0 H (22.0-30.0) sec Sodium 133 L (137-145) mmol/L BUN 26 H (9-20) mg/dL Creatinine 1.85 H (0.66-1.25) mg/dL 11/21/20 Range/Units 06:55 RBC (4.30-5.90) m/uL Hgb (13.0-17.5) gm/dL Hct (39.0-53.0) % MCV (80.0-100.0) fL MCH (25.0-35.0) pg RDW (11.5-15.5) % Macrocytosis APTT 49.6 H (22.0-30.0) sec Sodium (137-145) mmol/L BUN (9-20) mg/dL Creatinine (0.66-1.25) mg/dL Assessment and Plan Plan: Assessment: 1. Acute kidney injury secondary to ATN secondary to hypotension. Creatinine 1.85 yesterday. UA benign. No hydronephrosis noted on kidney ultrasound. 2. Chronic kidney disease stage IIIB with baseline creatinine near 1.5 secondary to nephrosclerosis. 3. Right lower extremity DVT maintained on anticoagulation. 4. Anemia of chronic kidney disease maintained on Aranesp. 5. Chronic diastolic CHF. Plan: Hep-Lock IV fluids. Continue to hold diuretics. Encouraged oral intake. Cortisol level normal. Maintain midodrine. Avoid nephrotoxins. Continue to monitor renal function and urine output.
[2020-11-21] MEDS: SODIUM CHLORIDE 0.9% 1,000 ML IV SCH (10:27)
[2020-11-21 10:33] LABS: Anisocytosis Slight; Basophils % (A) 1 %; Eosinophils # (A) 0.1 k/uL (0-0.7); Eosinophils % (A) 2 %; HCT 25.2 % (39.0-53.0); HGB 8.8 gm/dL (13.0-17.5); Lymphocytes # (A) 1.3 k/uL (1.0-4.8); Lymphocytes % (A) 27 %; MCH 41.3 pg (25.0-35.0); MCHC 34.8 g/dL (31.0-37.0); MCV 118.8 fL (80.0-100.0); Macrocytosis Marked; Mean Platelet Volume 8.4; Monocytes # (A) 0.3 k/uL (0-1.0); Monocytes % (A) 6 %; Neutrophils % (A) 61 %; Platelet Count 225 k/uL (150-450); Poikilocytosis Slight; RBC 2.12 m/uL (4.30-5.90); RDW 17.8 % (11.5-15.5); WBC 4.9 k/uL (3.8-10.6)
[2020-11-21 11:03] LABS: Albumin 2.4 g/dL (3.5-5.0); Calcium 8.3 mg/dL (8.4-10.2); Potassium 4.1 mmol/L (3.5-5.1); Total Bilirubin 0.4 mg/dL (0.2-1.3); Total Protein 4.8 g/dL (6.3-8.2)
[2020-11-21] MEDS: HYDROcodone/APAP 5-325MG 1 EACH TAB PO PRN ×2 (14:05→22:24)
--- NOTE | 2020-11-21 15:31 | P.PN ---
Subjective Progress Note Date: 11/21/20 Complains of feet hurting today, and difficulty with urinatio Objective - Vital Signs Vital signs: Vital Signs Temp 97.7 F 11/21/20 09:22 Pulse 52 L 11/21/20 09:22 Resp 16 11/21/20 09:22 BP 107/55 11/21/20 09:22 Pulse Ox 96 11/21/20 09:22 Intake & Output 11/20/20 11/21/20 11/21/20 18:59 06:59 18:59 Intake Total 516 304.039 240 Output Total 800 400 Balance -284 -95.961 240 Weight 79 kg Intake: IV 160 80 0.9 80 80 Heparin Sod,Pork in 0.45% 80 NaCl 25,000 unit In 0.45 % NaCl 1 250ml.bag @ 12 UNITS/KG/HR 9.42 mls/hr IV .Q24H TAMMY Rx#: [id number] Intake, IV Titration 224.039 Amount Heparin Sod,Pork in 0.45% 224.039 NaCl 25,000 unit In 0.45 % NaCl 1 250ml.bag @ 12 UNITS/KG/HR 9.42 mls/hr IV .Q24H TAMMY Rx#: [id number] Oral 356 240 Output: Urine 800 400 Other: Voiding Method Urinal Urinal # Voids 1 0 # Bowel Movements 1 - Exam - Constitutional General appearance: Present: no acute distress - EENT Eyes: Present: EOMI ENT: Present: hearing grossly normal, normal oropharynx - Respiratory Respiratory: bilateral: CTA - Cardiovascular Rhythm: regular Heart sounds: normal: S1, S2 - Gastrointestinal General gastrointestinal: Present: normal bowel sounds, soft - Catheter - Making urine, no hematuria - Labs CBC & Chem 7: 11/21/20 10:05 11/21/20 10:05 Labs: Abnormal Lab Results - Last 24 Hours (Table) 11/20/20 11/20/20 11/20/20 Range/Units 10:22 10:22 10:22 RBC 2.07 L (4.30-5.90) m/uL Hgb 8.4 L (13.0-17.5) gm/dL Hct 25.2 L (39.0-53.0) % MCV 121.6 H (80.0-100.0) fL MCH 40.4 H (25.0-35.0) pg RDW 19.2 H (11.5-15.5) % Macrocytosis Marked A APTT 54.0 H (22.0-30.0) sec Sodium 133 L (137-145) mmol/L BUN 26 H (9-20) mg/dL Creatinine 1.85 H (0.66-1.25) mg/dL 11/21/20 Range/Units 06:55 RBC (4.30-5.90) m/uL Hgb (13.0-17.5) gm/dL Hct (39.0-53.0) % MCV (80.0-100.0) fL MCH (25.0-35.0) pg RDW (11.5-15.5) % Macrocytosis APTT 49.6 H (22.0-30.0) sec Sodium (137-145) mmol/L BUN (9-20) mg/dL Creatinine (0.66-1.25) mg/dL Assessment and Plan Plan: Assessment and Plan DVT (deep venous thrombosis) - History of non-adherence to medications - Acute on Chronic DVT - IV Heparin continued and plan to switvh PO at discharge - Adherence again re-discussed Current Visit: Yes Status: Acute Priority: High Code(s): I82.409 - ACUTE EMBOLISM AND THOMBOS UNSP DEEP VN UNSP LOWER EXTREMITY SNOMED Code(s): 435609488 Anemia - Likely main component anemia of chronic kidney disease - LISA at home, arranged from office - He will follow-up after discharge closely monitor CBC, Iron Studies and LISA - Keep Saturation greater than 15% on LISA Current Visit: No Status: Acute Code(s): D64.9 - ANEMIA, UNSPECIFIED SNOMED Code(s): 282636892 Hematuria - Improved - PLan is for outpatient Cystoscopy - MOnitor CBC, Iron studies Current Visit: Yes Status: Acute Code(s): R31.9 - HEMATURIA, UNSPECIFIED SNOMED Code(s): 18203843 Plan: The patient has also been seen by nephrology in consult will presumably the Outpatient follow-up for his CKD
[2020-11-21] MEDS: DIPHENOX-ATROP 2.5-0.025 MG 1 EACH TAB PO PRN (19:08)
[2020-11-21] MEDS: ATORVASTATIN 20 MG TAB PO SCH (20:20)
[2020-11-22] MEDS: SODIUM CHLORIDE 0.9% 1,000 ML IV SCH ×3 (01:37→23:32)
[2020-11-22] MEDS: PANTOPRAZOLE 40 MG TABLET PO SCH (06:22)
[2020-11-22] MEDS: HEPARIN SOD,PORK IN 0.45% NACL 25,000 UNIT in 0.45% NACL 1 250ML.BAG IV SCH ×2 (06:22→23:32)
[2020-11-22] MEDS: MIDODRINE 5 MG TAB PO SCH ×3 (06:22→16:32)
[2020-11-22] MEDS: THIAMINE 100 MG TAB PO SCH ×2 (06:22→16:32)
[2020-11-22] MEDS: HYDROcodone/APAP 5-325MG 1 EACH TAB PO PRN ×2 (06:25→16:32)
[2020-11-22 06:33] LABS: Anisocytosis Slight; Basophils % (A) 1 %; Eosinophils # (A) 0.1 k/uL (0-0.7); Eosinophils % (A) 3 %; HCT 24.6 % (39.0-53.0); HGB 8.5 gm/dL (13.0-17.5); Lymphocytes # (A) 0.9 k/uL (1.0-4.8); Lymphocytes % (A) 23 %; MCH 40.9 pg (25.0-35.0); MCHC 34.3 g/dL (31.0-37.0); Macrocytosis Marked; Mean Platelet Volume 8.4; Monocytes # (A) 0.2 k/uL (0-1.0); Monocytes % (A) 6 %; Neutrophils # (A) 2.5 k/uL (1.3-7.7); Neutrophils % (A) 65 %; Platelet Count 192 k/uL (150-450); RBC 2.07 m/uL (4.30-5.90); RDW 17.8 % (11.5-15.5); WBC 3.8 k/uL (3.8-10.6)
[2020-11-22] MEDS: DIPHENOX-ATROP 2.5-0.025 MG 1 EACH TAB PO PRN ×2 (06:35→16:32)
[2020-11-22 06:56] LABS: Albumin 2.2 g/dL (3.5-5.0); Calcium 8.1 mg/dL (8.4-10.2); Magnesium 1.4 mg/dL (1.6-2.3); Potassium 4.1 mmol/L (3.5-5.1); Total Bilirubin 0.4 mg/dL (0.2-1.3); Total Protein 4.5 g/dL (6.3-8.2)
[2020-11-22] MEDS: ASPIRIN 81 MG PO SCH (08:18)
[2020-11-22] MEDS: METOPROLOL SUCCINATE (ER) 25 MG TAB.ER.24H PO SCH (08:18)
[2020-11-22] MEDS: FOLIC ACID 1 MG TAB PO SCH (08:18)
[2020-11-22] MEDS ORDERED: Magnesium Replacement Protocol 1 EACH MISC MISCELLANE PRN (09:28)
[2020-11-22] MEDS: MAGNESIUM SULFATE-D5W PMX 1 GM in DEXTROSE/WATER 1 100ML.BAG IVPB SCH ×3 (09:36→11:28)
--- NOTE | 2020-11-22 13:42 | P.PN ---
Subjective Progress Note Date: 11/22/20 Acute DVT , COSME Mr. Dumont is a 69-year-old male with a past medical history of heart failure, hypertension, be, CKD stage III, chronic anemia, coronary artery disease status post CABG, peripheral vascular disease, hypertension coming into the hospital with a chief complaint of difficulty in breathing. Patient states that he has been having left-sided chest pain and also complains of increased swelling of his bilateral lower extremities. Patient states that he is noncompliant in taking his medications including his Xarelto for his history of PE. Patient also mentions about drinking alcohol every day, he drinks 6-8 beers. Patient states that he thought he would be having a stroke as he was feeling short of breath with diaphoresis along with these chest pains. He was complaining some tingling and numbness in his fingers and feet on and off. Patient denies having any fevers chills or rigors. No sick contacts. Denies having any cough. No abdominal pain nausea vomiting or diarrhea. Denies having any dysuria or hematuria. In the ER at the time of admission patient's vital signs temperature 97.9, heart rate 94, tachypneic, blood pressure 83/69 saturating at 99% on room air. Patie nt had a chest x-ray done showing no evidence of cardiopulmonary process he had an EKG showing sinus tachycardia with premature supraventricular complexes. On reviewing his labs white count of 6.4, hemoglobin 8.8, platelets 199. Sodium 135, potassium 3.3, chloride 108, bicarb 15, BUN 13, creatinine 1.52. Lactic acid at the time of admission 5.6, troponin 0 0.710. Albumin 2.9. On 11/16/2020 -patient is seen and examined at the bedside. Patient is a poor historian. He denies having any more hematuria dysuria or increased frequency of urination. Patient had a bowel movement, nurse checked the commode and did not report any blood in his stool. Patient denied having any chest pain or palpitations. He complains of fatigue and weakness. On reviewing his vitals temperature of 98, respiratory rate 18, blood pressure 101/46, heart rate 68, saturating at 93% on 2 L of nasal cannula. On reviewing the patient's labs his hemoglobin is 7. 8, severe macrocytosis with MCV 125. Sodium 136, potassium 3.7, chloride 107, bicarb 27, BUN 22, creatinine 1.71. Albumin 2.6. On 11/17/2020 -patient is seen and examined at the bedside. As per discussion with nursing staff patient's hemoglobin dropped to 6.9 this morning, he received 1 unit of PRBCs. Patient denied having any more hematuria he does not have any chest pain or palpitations. He denies having any abdominal pain nausea vomiting or diarrhea. On reviewing the patient's vitals temperature of 98, heart rate 68, respiratory rate 18, blood pressure 101/46, saturating at 93% on 3 L of nasal cannula. On reviewing the patient's labs white count of 5.5, hemoglobin 9.6, platelets 201. There is marked macrocytosis On 11/18/2020 -patient is seen and examined at the bedside. No acute events reported by nursing staff. He is comfortably lying in bed appears to be no acute distress. He states he has generalized body aches and pains. Patient denies having any fevers chills or rigors. No cough or difficulty breathing. No chest pain or palpitations. No abdominal pain nausea vomiting or diarrhea. Patient denies having any blood in his stools. On reviewing his vitals from this morning temperature of 98.9, heart rate 60, respiratory 16, blood pressure 108 x 78 saturating at 96% on 2 L of nasal cannula honoring the patient's labs white count of 4.7, hemoglobin 9.1, platelets 208 with marked macrocytosis. On 11/19/2020 -patient is comfortably lying in bed appears to be in no acute distress. He complains of generalized body aches and pains but denies having any fevers chills or rigors. No chest pain or palpitations. Patient denies having any blood in his urine or blood in his stool. Patient continues to be on heparin for anticoagulation. On reviewing the vitals temperature of 98, respiratory rate 16, heart rate 62, blood pressure 130/57, saturating at 100% on room air. On reviewing the labs from this morning white count of 5.3, hemoglobin 8.2, platelets 219. Sodium 133, potassium 5, chloride 105, bicarb 25, BUN 26, creatinine 1.97. Patient had an abdominal ultrasound showing no hydronephrosis or renal calculi and bilateral mild cortical renal thinning. 11/20/2020 Patient remains on IV heparin no more hematuria. Patient had acute renal failure which I believe secondary to excess diuresis as there is no evidence of heart failure on admission are now because of that I'll discontinue oral Lasix will repeat the basic metabolic profile tomorrow unfortunately patient already received Lasix today. 11/21/2020 Patient's hematuria resolved and patient creatinine improved today, patient is not volume overloaded Lasix was discontinued yesterday. In fact I'll give him fluids at 75 mL per hour once his creatinine improves his bleeding risk will be lesser with the Eliquis. Hoping that his creatinine will improve by tomorrow with IV fluids patient can be started on Eliquis tomorrow we'll leave him on heparin for today. She doesn't have any withdrawals patient feels much better today. 11/22/2020 Patient is seen in follow-up this morning continues on IV heparin and will likely transition to oral anticoagulant tomorrow if no further bleeding is noted. Hemoglobin is stable at 8.5. Sodium is 137 with a potassium of 4.1 current creatinine is 1.95 and will continue gentle IV hydration and repeat labs. Magnesium was low at 1.4 and will replace and repeat labs in the morning. Social work and case management following working on accepting facility and authorization from insurance. Plans are for possible [place]. Constitutional: Denied any fatigue denied any fever. Cardio vascular: denied any chest pain, palpitations Gastrointestinal denied any nausea vomiting Pulmonary: Denied any shortness of breath cough Neurologic denied any new focal deficits All inpatient medications were reviewed and appropriate changes in these medications as dictated in the interval history and assessment and plan. Objective - Vital Signs Vital signs: Vital Signs Temp 98.1 F 11/22/20 08:00 Pulse 46 L 11/22/20 11:27 Resp 18 11/22/20 11:27 BP 105/55 11/22/20 11:27 Pulse Ox 97 11/22/20 11:27 Intake & Output 11/21/20 11/22/20 11/22/20 18:59 06:59 18:59 Intake Total 1080 528.906 443.748 Output Total 150 600 Balance 930 -71.094 443.748 Weight 78.9 kg Intake: IV 600 300 0.9 600 Sodium Chloride 0.9% 1, 300 000 ml @ 75 mls/hr IV . [id number] TAMMY Rx#:[id number] Intake, IV Titration 228.906 325.748 Amount Heparin Sod,Pork in 0.45% 228.906 25.748 NaCl 25,000 unit In 0.45 % NaCl 1 250ml.bag @ 12 UNITS/KG/HR 9.42 mls/hr IV .Q24H TAMMY Rx#: [id number] Magnesium Sulfate-D5w Pmx 300 1 gm In Dextrose/Water 1 100ml.bag @ 100 mls/hr IVPB Q1H TAMMY Rx#: [id number] Oral 480 118 Output: Urine 150 600 Other: Voiding Method Urinal Urinal Urinal # Voids 1 0 # Bowel Movements 1 - Exam GENERAL: poorly kempt and chronically ill appearing HEENT: Pupils are round and equally reacting to light. EOMI. No scleral icterus. no conjunctival pallor. CARDIOVASCULAR: S1 and S2 present. No murmurs, rubs, or gallops. PULMONARY: Diminished breath sounds in all lung landa, crackles at the left lower lung base. ABDOMEN: Soft, nontender, normal bowel sounds. No guarding or rigidity. MUSCULOSKELETAL: No joint swelling or deformity. EXTREMITIES: bilateral leg edema with extreme sensitivity on palpation NEUROLOGICAL: AOX3, Gross neurological examination did not reveal any focal deficits. No active bleeding from any site - Labs CBC & Chem 7: 11/22/20 06:10 11/22/20 06:10 Labs: Abnormal Lab Results - Last 24 Hours (Table) 11/22/20 11/22/20 11/22/20 Range/Units 06:10 06:10 06:10 RBC 2.07 L (4.30-5.90) m/uL Hgb 8.5 L (13.0-17.5) gm/dL Hct 24.6 L (39.0-53.0) % MCV 119.0 H (80.0-100.0) fL MCH 40.9 H (25.0-35.0) pg RDW 17.8 H (11.5-15.5) % Lymphocytes # 0.9 L (1.0-4.8) k/uL Macrocytosis Marked A APTT 39.0 H (22.0-30.0) sec Chloride 112 H (98-107) mmol/L BUN 28 H (9-20) mg/dL Creatinine 1.95 H (0.66-1.25) mg/dL Calcium 8.1 L (8.4-10.2) mg/dL Magnesium 1.4 L (1.6-2.3) mg/dL Total Protein 4.5 L (6.3-8.2) g/dL Albumin 2.2 L (3.5-5.0) g/dL Assessment and Plan Assessment: Right LE acute on chronic DVT : On IV heparin patient had gross hematuria which improved at this time outpatient cystoscopy when patient is ready to be discharged patient will be discharged on Eliquis Gross Hematuria - resolved Anemia - secondary to hematuria COSME History of PE noncompliant with anticoagulation History of coronary artery disease Elevated troponin Severe Macrocytosis: Secondary to alcohol abuse CKD stage III : Patient's baseline creatinine is around 1.4 presently went up secondary to excessive diuresis patient is not in heart failure Lasix was discontinued patient will be started on IV fluids Chronic anemia Hypokalemia, improved and is 4.1 Hypomagnesemia, magnesium 1.4 and will replace and repeat in the morning Alcohol abuse: Not having any withdrawal counseling was provided to quit alcohol History of multiple falls Peripheral vascular disease Nicotine dependence No malnutrition GI prophylaxis DVT - on heparin drip Plan: Patient will continue on gentle IV hydration and repeat labs and monitor kidney functions closely. Creatinine today is 1.95 with a BUN of 28 and sodium is improved at 137. Hemoglobin is stable at 8.5 with no active bleeding noted. Patient also continues on IV heparin and will continue to monitor for any signs of bleeding and possibly resume Eliquis tomorrow. Case management and social work following and working on acceptance and authorization for [facility] this patient continues to be extremely weak requiring some continued PT/OT therapy for strength and mobility. Will repeat labs in the morning. Instructed the patient increase activity as tolerated.
--- NOTE | 2020-11-22 17:53 | PN ---
PROGRESS NOTE Patient is seen for followup for acute kidney injury. Renal function fairly stable. Serum creatinine staying at 1.8-1.9 mg/dL. The patient is currently maintained on IV fluids at 75 mL an hour. He has been voiding in a urinal. Twenty-four hour output documented at about 1.2 L. PHYSICAL EXAMINATION: Patient is awake, comfortable, not in any acute distress. Blood pressure was 105/55, heart rate 46 per minute, he is afebrile. Examination of the heart S1, S2. Examination of lungs, decreased breath sounds at the bases. Abdomen is soft, nontender. Examination of lower extremities shows no significant edema. BARREL PLANER exam grossly intact. LAB: Show sodium of 137, potassium 4.1, chloride 112, BUN 28, creatinine 1.95, hemoglobin 8.5 g/dL. ASSESSMENT: 1. Acute kidney injury, mostly acute tubular necrosis associated with hypotension hypoperfusion. No evidence of obstruction on the ultrasound. Baseline creatinine appears to be around 1.4 mg/dL. 2. Chronic kidney disease stage 3B. Baseline creatinine about 1.5. Etiology nephrosclerosis. 3. Right lower extremity DVT with history of PE, maintained on anticoagulation. The patient is on Eliquis. 4. Anemia of chronic disease, maintained on Aranesp. 5. Chronic diastolic congestive heart failure. PLAN: Continue with saline for now. Repeat labs in a.m. and continue with Aranesp as well. Avoid nephrotoxic agents. MMODL / IJN: [id number] /
[2020-11-22] MEDS: ATORVASTATIN 20 MG TAB PO SCH (20:49)
[2020-11-23 03:55] VITALS: RESP 17
[2020-11-23] MEDS: THIAMINE 100 MG TAB PO SCH (06:36)
[2020-11-23] MEDS: PANTOPRAZOLE 40 MG TABLET PO SCH (06:36)
[2020-11-23] MEDS: MIDODRINE 5 MG TAB PO SCH ×2 (06:37→15:11)
[2020-11-23] MEDS: FOLIC ACID 1 MG TAB PO SCH (09:11)
[2020-11-23] MEDS: ASPIRIN 81 MG PO SCH (09:11)
[2020-11-23] MEDS: METOPROLOL SUCCINATE (ER) 25 MG TAB.ER.24H PO SCH (09:11)
[2020-11-23 09:21] LABS: Calcium 8.3 mg/dL (8.4-10.2); Potassium 4.3 mmol/L (3.5-5.1)
[2020-11-23] MEDS: HYDROcodone/APAP 5-325MG 1 EACH TAB PO PRN (09:22)
[2020-11-23 09:30] LABS: Anisocytosis Slight; Basophils % (A) 1 %; Eosinophils # (A) 0.1 k/uL (0-0.7); Eosinophils % (A) 2 %; HCT 25.8 % (39.0-53.0); HGB 8.2 gm/dL (13.0-17.5); Hypochromasia Slight; Lymphocytes # (A) 1.2 k/uL (1.0-4.8); Lymphocytes % (A) 28 %; MCH 38.9 pg (25.0-35.0); MCHC 31.9 g/dL (31.0-37.0); Macrocytosis Marked; Monocytes # (A) 0.3 k/uL (0-1.0); Monocytes % (A) 6 %; Neutrophils # (A) 2.6 k/uL (1.3-7.7); Neutrophils % (A) 59 %; Platelet Count 180 k/uL (150-450); RBC 2.12 m/uL (4.30-5.90); RDW 18.3 % (11.5-15.5); WBC 4.4 k/uL (3.8-10.6)
[2020-11-23] MEDS ORDERED: APIXABAN 5 MG TAB PO SCH (11:45)
[2020-11-23 12:17] VITALS: PULSE 59; TEMP 98.4
--- NOTE | 2020-11-23 13:29 | PN ---
PROGRESS NOTE Patient is seen for followup for acute kidney injury. He is currently maintained on IV fluids. Renal function has improved with creatinine down from 2.1 to 1.7 now. Previous creatinine as low as 1.4-1.5 mg/dL. There are plans for possible discharge today. Patient denies any significant complaints. PHYSICAL EXAMINATION: Blood pressure 107/53, heart rate 59 per minute. He is afebrile. Examination of the heart S1, S2. Examination of the lungs, bilateral breath sounds are heard. Abdomen is soft, nontender. Examination of lower extremities shows trace edema bilaterally. EXPLOSIVE SPECIALIST exam grossly intact. LAB: Show sodium 136, potassium 4.3, chloride 114, CO2 is 20, BUN 27, creatinine 1.7, hemoglobin 8.2 g/dL. ASSESSMENT: 1. Acute kidney injury, appears to be prerenal, currently maintained on IV fluids. However, this can be discontinued as the patient is eating fairly well. He did have low blood pressure as well prior to admission. 2. Chronic kidney disease stage 3B. Baseline creatinine 1.4-1.5 secondary to nephrosclerosis. 3. Right lower extremity DVT with history of PE maintained on anticoagulation in the form of Eliquis. 4. Chronic diastolic congestive heart failure. 5. Anemia of chronic disease maintained on Aranesp. PLAN: Discontinue the saline. Can resume home dose of oral Lasix. The patient can be discharged and follow up as outpatient in about 1-2 weeks time. MMKERRYL / IJN: [id number] /
--- NOTE | 2020-11-23 13:39 | P.DS ---
Providers Date of admission: 11/14/20 04:09 Expected date of discharge: 11/23/20 Attending physician: Li Espino Consults: 11/15/20 15:39 Consult Physician Routine Consulting Provider: Yang March Consult Reason/Comments: gi bleed, dvt Do you want consulting provider notified?: Yes 11/16/20 16:28 Consult Physician Routine Consulting Provider: Willian Swartz Consult Reason/Comments: hematuria, concern for malignant process Do you want consulting provider notified?: Yes, Notify in am 11/18/20 19:05 Consult Physician Routine Consulting Provider: Cornel Condon Consult Reason/Comments: CKD Do you want consulting provider notified?: Yes, Notify in am Primary care physician: Juan Yi [place] [facility] Course: Final diagnosis Right LE acute on chronic DVT Gross Hematuria - resolved Anemia - secondary to hematuria COSME History of PE noncompliant with anticoagulation History of coronary artery disease Elevated troponin Severe Macrocytosis: Secondary to alcohol abuse CKD stage III : Patient's baseline creatinine is around 1.4 presently went up secondary to excessive diuresis patient is not in heart failure Lasix was discontinued patient will be started on IV fluids Chronic anemia Hypokalemia, improved Hypomagnesemia, improved Alcohol abuse: Not having any withdrawal counseling was provided to quit alcohol History of multiple falls Peripheral vascular disease Nicotine dependence No malnutrition GI prophylaxis DVT prophylaxis Full code Discharge disposition Patient is being discharged in a stable condition with guarded prognosis to [facility]. Patient will follow-up with Dr. Yi upon discharge. Patient will also need to follow-up with urology outpatient in the next 3-4 weeks to discuss cystoscopy. Patient will continue on Eliquis 5 mg twice daily. Recommend repeat labs in a few days to monitor kidney functions outpatient. Total time taken is greater than 35 minutes. Hospital course Acute DVT , COSME Mr. Dumont is a 69-year-old male with a past medical history of heart failure, hypertension, be, CKD stage III, chronic anemia, coronary artery disease status post CABG, peripheral vascular disease, hypertension coming into the hospital w ith a chief complaint of difficulty in breathing. Patient states that he has been having left-sided chest pain and also complains of increased swelling of his bilateral lower extremities. Patient states that he is noncompliant in taking his medications including his Xarelto for his history of PE. Patient also mentions about drinking alcohol every day, he drinks 6-8 beers. Patient states that he thought he would be having a stroke as he was feeling short of breath with diaphoresis along with these chest pains. He was complaining some tingling and numbness in his fingers and feet on and off. Patient denies having any fevers chills or rigors. No sick contacts. Denies having any cough. No abdominal pain nausea vomiting or diarrhea. Denies having any dysuria or hematuria. In the ER at the time of admission patient's vital signs temperature 97.9, heart rate 94, tachypneic, blood pressure 83/69 saturating at 99% on room air. Patient had a chest x-ray done showing no evidence of cardiopulmonary process he had an EKG showing sinus tachycardia with premature supraventricular complexes. On reviewing his labs white count of 6.4, hemoglobin 8.8, platelets 199. Sodium 135, potassium 3.3, chloride 108, bicarb 15, BUN 13, creatinine 1.52. Lactic acid at the time of admission 5.6, troponin 0 0.710. Albumin 2.9. On 11/16/2020 -patient is seen and examined at the bedside. Patient is a poor historian. He denies having any more hematuria dysuria or increased frequency of urination. Patient had a bowel movement, nurse checked the commode and did not report any blood in his stool. Patient denied having any chest pain or palpitations. He complains of fatigue and weakness. On reviewing his vitals temperature of 98, respiratory rate 18, blood pressure 101/46, heart rate 68, saturating at 93% on 2 L of nasal cannula. On reviewing the patient's labs his hemoglobin is 7. 8, severe macrocytosis with MCV 125. Sodium 136, potassium 3.7, chloride 107, bicarb 27, BUN 22, creatinine 1.71. Albumin 2.6. On 11/17/2020 -patient is seen and examined at the bedside. As per discussion with nursing staff patient's hemoglobin dropped to 6.9 this morning, he received 1 unit of PRBCs. Patient denied having any more hematuria he does not have any chest pain or palpitations. He denies having any abdominal pain nausea vomiting or diarrhea. On reviewing the patient's vitals temperature of 98, heart rate 68, respiratory rate 18, blood pressure 101/46, saturating at 93% on 3 L of nasal cannula. On reviewing the patient's labs white count of 5.5, hemoglobin 9.6, platelets 201. There is marked macrocytosis On 11/18/2020 -patient is seen and examined at the bedside. No acute events reported by nursing staff. He is comfortably lying in bed appears to be no acute distress. He states he has generalized body aches and pains. Patient denies having any fevers chills or rigors. No cough or difficulty breathing. No chest pain or palpitations. No abdominal pain nausea vomiting or diarrhea. Patient denies having any blood in his stools. On reviewing his vitals from this morning temperature of 98.9, heart rate 60, respiratory 16, blood pressure 108 x 78 saturating at 96% on 2 L of nasal cannula honoring the patient's labs white count of 4.7, hemoglobin 9.1, platelets 208 with marked macrocytosis. On 11/19/2020 -patient is comfortably lying in bed appears to be in no acute distress. He complains of generalized body aches and pains but denies having any fevers chills or rigors. No chest pain or palpitations. Patient denies having any blood in his urine or blood in his stool. Patient continues to be on heparin for anticoagulation. On reviewing the vitals temperature of 98, respiratory rate 16, heart rate 62, blood pressure 130/57, saturating at 100% on room air. On reviewing the labs from this morning white count of 5.3, hemoglobin 8.2, platelets 219. Sodium 133, potassium 5, chloride 105, bicarb 25, BUN 26, creatinine 1.97. Patient had an abdominal ultrasound showing no hydronephrosis or renal calculi and bilateral mild cortical renal thinning. 11/20/2020 Patient remains on IV heparin no more hematuria. Patient had acute renal failure which I believe secondary to excess diuresis as there is no evidence of heart failure on admission are now because of that I'll discontinue oral Lasix will repeat the basic metabolic profile tomorrow unfortunately patient already received Lasix today. 11/21/2020 Patient's hematuria resolved and patient creatinine improved today, patient is not volume overloaded Lasix was discontinued yesterday. In fact I'll give him fluids at 75 mL per hour once his creatinine improves his bleeding risk will be lesser with the Eliquis. Hoping that his creatinine will improve by tomorrow with IV fluids patient can be started on Eliquis tomorrow we'll leave him on heparin for today. She doesn't have any withdrawals patient feels much better today. 11/22/2020 Patient is seen in follow-up this morning continues on IV heparin and will likely transition to oral anticoagulant tomorrow if no further bleeding is noted. Hemoglobin is stable at 8.5. Sodium is 137 with a potassium of 4.1 current creatinine is 1.95 and will continue gentle IV hydration and repeat labs. Magnesium was low at 1.4 and will replace and repeat labs in the morning. Social work and case management following working on accepting facility and authorization from insurance. Plans are for possible [place]. 11/23/2020 Patient is seen in follow-up this morning and has been transitioned to oral eliquis 5 mg twice daily and will continue. Patient was also seen and evaluated by nephrology recommending repeat labs in a few days to monitor kidney functions and electrolytes. Patient will continue on Lasix as well. Patient was also seen and evaluated by urology recommending outpatient follow-up in 3-4 weeks for cystoscopy. No bleeding noted and hemoglobin is stable. Currently no reports of chest pain, shortness of breath, or palpitations. Patient is afebrile. No reports of nausea or vomiting and patient is tolerating diet. Guarded prognosis. On exam vital signs are stable. Cardio S1, S2 are muffled. Respiratory shows diminished breath sounds at the bases with no wheezing noted. Abdomen is soft and nontender. Nervous system shows mild diffuse weakness. Please refer to medication reconciliation sheet for a list of medications. Patient Condition at Discharge: Stable Plan - Discharge Summary New Discharge Prescriptions: New Darbepoetin *Esrd* [Aranesp Esrd] 40 mcg SQ Q7D #4 syringe HYDROcodone/APAP 5-325MG [[place] 5-325] 1 each PO Q8HR PRN #6 tab PRN Reason: Pain Pantoprazole [Protonix] 40 mg PO AC-BRKFST tablet. Metoprolol Succinate (ER) [Toprol XL] 25 mg PO DAILY tab.er.24h Thiamine [Vitamin B-1] 100 mg PO BID-W/MEALS tab Folic Acid 1 mg PO DAILY #90 tablet Midodrine [ProAmatine] 5 mg PO AC-TID tab Diphenox-Atrop 2.5-0.025 mg [Lomotil] 1 tab PO TID PRN #10 tablet PRN Reason: Diarrhea Continue Aspirin EC [Ecotrin Low Dose] 81 mg PO DAILY Simvastatin 40 mg PO HS Furosemide [Lasix] 40 mg PO DAILY tab Apixaban [Eliquis] 5 mg PO BID Discontinued Metoprolol Succinate (ER) [Toprol XL] 50 mg PO DAILY amLODIPine [Norvasc] 10 mg PO DAILY lisinopriL 20 mg PO DAILY Discharge Medication List Aspirin EC [Ecotrin Low Dose] 81 mg PO DAILY 09/04/19 [History] Simvastatin 40 mg PO HS 09/05/19 [History] Furosemide [Lasix] 40 mg PO DAILY tab 01/12/20 [Rx] Apixaban [Eliquis] 5 mg PO BID 11/14/20 [History] Darbepoetin *Esrd* [Aranesp Esrd] 40 mcg SQ Q7D #4 syringe 11/17/20 [Rx] Folic Acid 1 mg PO DAILY #90 tablet 11/17/20 [Rx] Diphenox-Atrop 2.5-0.025 mg [Lomotil] 1 tab PO TID PRN #10 tablet 11/23/20 [Rx] HYDROcodone/APAP 5-325MG [[place] 5-325] 1 each PO Q8HR PRN #6 tab 11/23/20 [Rx] Metoprolol Succinate (ER) [Toprol XL] 25 mg PO DAILY tab.er.24h 11/23/20 [Rx] Midodrine [ProAmatine] 5 mg PO AC-TID tab 11/23/20 [Rx] Pantoprazole [Protonix] 40 mg PO AC-BRKFST tablet.dr 11/23/20 [Rx] Thiamine [Vitamin B-1] 100 mg PO BID-W/MEALS tab 11/23/20 [Rx] Follow up Appointment(s)/Referral(s): [facility] [NON-STAFF] - Ivan Grajeda MD [STAFF PHYSICIAN] - 4 Weeks (For cystoscopy ) [facility], [NON-STAFF] - Juan Yi DO [Primary Care Provider] - 1-2 days Ambulatory/Diagnostic Orders: Complete Blood Count w/diff [LAB.AMB] Time Frame: 3 Days, Location: None Selected Activity/Diet/Wound Care/Special Instructions: Patient is going to [facility] Activity as tolerated Follow-up with primary care provider upon discharge Follow-up with urology outpatient for cystoscopy Continue with medications as prescribed Repeat labs for CBC and BMP in 2-3 days Outpatient follow-up with nephrology In order for home care to come to your home, you must follow up with Dr. Loza first and then call [facility] to let them know to come out to start service. Weekly CBC. Aranesp weekly SQ for Hgb< 11, hold for Hgb 11 or higher Discharge/Stand Alone Forms: Who Do I Call? Discharge Disposition: TRANSFER TO SNF/F
[2020-11-23 14:35] VITALS: BP 103/64
--- NOTE | 2021-01-13 12:46 | CDI ---
Documentation Clarification Form Date: 01/13/2021 12:37:02 PM From: [place] Admit Date: 11/14/2020 04:09:00 AM Patient Name: Kraig Dumont Visit Number: [id number] Discharge Date: 11/23/2020 03:20:00 PM ATTENTION: The Clinical Documentation Specialists (CDI) and [facility] Coding Staff appreciate your assistance in clarifying documentation. Please respond to the clarification below the line at the bottom and electronically sign. The CDI & [facility] Coding staff will review the response and follow-up if needed. Please note: Queries are made part of the Legal Health Record. If you have any questions, please contact the author of this message via ITS. Dr. Alfa Mohr Conflicting documentation has been found in the medical record. As attending physician, please provide clarification. Physician query response 11/18-unable to determine. Progress notes 11/19-11/21-chronic diastolic CHF. Progress note 11/20-no evidence of diastolic dysfunction. CXR-no CHF. History/Risk Factors: Clinical Indicators: ECHO: EF 55-60% Please clarify which diagnosis is most appropriate: [ ] chronic diastolic CHF [ x ] no CHF diagnosis [ ] Other (please specify) [ ] Unable to determine MTDD
--- NOTE | 2021-01-13 12:56 | CDI ---
Documentation Clarification Form Date: 01/13/2021 12:48:44 PM From: [place] Admit Date: 11/14/2020 04:09:00 AM Patient Name: Kraig Dumont Visit Number: [id number] Discharge Date: 11/23/2020 03:20:00 PM ATTENTION: The Clinical Documentation Specialists (CDI) and [facility] Coding Staff appreciate your assistance in clarifying documentation. Please respond to the clarification below the line at the bottom and electronically sign. The CDI & [facility] Coding staff will review the response and follow-up if needed. Please note: Queries are made part of the Legal Health Record. If you have any questions, please contact the author of this message via ITS. Dr. Alfa Mohr Conflicting documentation has been found in the medical record. As attending physician, please provide clarification. H+P and progress notes 11/15-11/16 state moderate protein calorie malnutrition. Progress notes 11/17-11/20 state severe protein calorie malnutrition. Progress notes 11/21-11/22 and discharge summary state no malnutrition. History/Risk Factors: Clinical Indicators: BMI 25 Please clarify which diagnosis is most appropriate: [ ] moderate protein-calorie malnutrition [ ] severe protein-calorie malnutrition [ ] Other (please specify) [ ] Unable to determine [ x ] no diagnosis of malnutrition MTDD
== END 2020-11-23 15:20 | DRG 299 ==
LOC: EC 00:45 → 3SCARD 04:09
PROVIDERS: ADMIT Hospitalist; ATTEND Hospitalist
PROC: 30233N1 Transfusion of Nonautologous Red Blood Cells into Peripheral Vein, Percutaneous Approach (ICD-10-PCS; principal; 2020-11-17)
DX: I82.401 Acute embolism and thrombosis of unspecified deep veins of right lower extremity (principal); N17.0 Acute kidney failure with tubular necrosis; K92.2 Gastrointestinal hemorrhage, unspecified; I82.501 Chronic embolism and thrombosis of unspecified deep veins of right lower extremity; R06.02 Shortness of breath; I25.10 Atherosclerotic heart disease of native coronary artery without angina pectoris; Z95.1 Presence of aortocoronary bypass graft; Z79.82 Long term (current) use of aspirin; Z79.01 Long term (current) use of anticoagulants; I25.2 Old myocardial infarction; N18.30 Chronic kidney disease, stage 3 unspecified; Z86.711 Personal history of pulmonary embolism; F17.200 Nicotine dependence, unspecified, uncomplicated; E87.6 Hypokalemia; E83.42 Hypomagnesemia; I12.9 Hypertensive chronic kidney disease with stage 1 through stage 4 chronic kidney disease, or unspecified chronic kidney disease; F10.10 Alcohol abuse, uncomplicated; Z91.81 History of falling; I73.9 Peripheral vascular disease, unspecified; Z91.14 Patient's other noncompliance with medication regimen; I95.9 Hypotension, unspecified; R31.0 Gross hematuria; Z68.25 Body mass index [BMI] 25.0-25.9, adult; D63.1 Anemia in chronic kidney disease; E78.5 Hyperlipidemia, unspecified; D53.9 Nutritional anemia, unspecified; D75.89 Other specified diseases of blood and blood-forming organs; Z79.899 Other long term (current) drug therapy; R77.8 Other specified abnormalities of plasma proteins; Z95.5 Presence of coronary angioplasty implant and graft
CPT/HCPCS: 36415; 71046; 71250; 74176; 76770; 78582; 80048; 80053; 80061; 81001; 82533; 82607; 82728; 82746; 83540; 83550; 83605; 83735; 83880; 83921; 84132; 84153; 84484; 85025; 85027; 85610; 85730; 86850; 86900; 86901; 86920; 87324; 93005; 93306; 93970; 94760; 96374; 99285

== ENCOUNTER 2020-12-12 12:49 | Emergency (ER) | payer MEDICARE ==
[2020-12-12 12:56] VITALS: TEMP 98
--- NOTE | 2020-12-12 13:30 | ED ---
Fall HPI - General Chief Complaint: Fall Stated Complaint: Broken Hip Time Seen by Provider: 12/12/20 12:51 Source: patient, EMS, RN notes reviewed Mode of arrival: EMS Limitations: no limitations - History of Present Illness Initial Comments: This a 69-year-old male presents emergency department via EMS with chief complaint of fall, hip and knee pain. Patient states he had couple falls states he tripped over his dog. Patient states happened Sunday night he complains of right-sided hip and knee pain. Patient denies any head injury no loss conscio us. Patient was given fentanyl by EMS states pain has greatly improved is not requesting any pain meds at this time. Patient denies neck pain, back pain. No prior hip fracture. - Related Data Home Medications Medication Instructions Recorded Confirmed Aspirin EC [Ecotrin Low Dose] 81 mg PO DAILY 09/04/19 12/12/20 Simvastatin 40 mg PO HS 09/05/19 12/12/20 Apixaban [Eliquis] 5 mg PO BID 11/14/20 12/12/20 Previous Rx's Medication Instructions Recorded Furosemide [Lasix] 40 mg PO DAILY tab 01/12/20 Darbepoetin *Esrd* [Aranesp Esrd] 40 mcg SQ Q7D #4 syringe 11/17/20 Folic Acid 1 mg PO DAILY #90 tablet 11/17/20 Diphenox-Atrop 2.5-0.025 mg 1 tab PO TID PRN #10 tablet 11/23/20 [Lomotil] HYDROcodone/APAP 5-325MG [[place] 1 each PO Q8HR PRN #6 tab 11/23/20 5-325] Metoprolol Succinate (ER) [Toprol 25 mg PO DAILY tab.er.24h 11/23/20 XL] Midodrine [ProAmatine] 5 mg PO AC-TID tab 11/23/20 Pantoprazole [Protonix] 40 mg PO AC-BRKFST tablet. 11/23/20 Thiamine [Vitamin B-1] 100 mg PO BID-W/MEALS tab 11/23/20 Allergies Allergy/AdvReac Type Severity Reaction Status Date / Time No Known Allergies Allergy Verified 12/12/20 13:00 Review of Systems ROS Statement: Those systems with pertinent positive or pertinent negative responses have been documented in the HPI. ROS Other: All systems not noted in ROS Statement are negative. Past Medical History Past Medical History: Heart Failure, Hypertension, Myocardial Infarction (IA), Pulmonary Embolus (PE) Additional Past Medical History / Comment(s): Chronic kidney disease stage III, multiple falls, chronic anemia, coronary artery disease, previous bypass surgery, peripheral vascular disease, hypertension, previous history of pulmonary embolism Last Myocardial Infarction Date:: UNSURE History of Any Multi-Drug Resistant Organisms: None Reported Past Surgical History: Coronary Bypass/CABG, Heart Catheterization With Stent Past Anesthesia/Blood Transfusion Reactions: No Reported Reaction Date of Last Stent Placement:: UNSURE Past Psychological History: No Psychological Hx Reported Smoking Status: Current every day smoker Past Alcohol Use History: Daily Past Drug Use History: None Reported - Past Family History Mother History Unknown: Yes General Exam Limitations: no limitations General appearance: alert, in no apparent distress Head exam: Present: atraumatic, normocephalic, normal inspection Eye exam: Present: normal appearance, PERRL, EOMI. Absent: scleral icterus, conjunctival injection, periorbital swelling Neck exam: Present: normal inspection, full ROM. Absent: tenderness, meningismus, lymphadenopathy Respiratory exam: Present: normal lung sounds bilaterally. Absent: respiratory distress, wheezes, rales, rhonchi, stridor Cardiovascular Exam: Present: regular rate, normal rhythm, normal heart sounds. Absent: systolic murmur, diastolic murmur, rubs, gallop, clicks GI/Abdominal exam: Present: soft, normal bowel sounds. Absent: distended, tenderness, guarding, rebound, rigid Extremities exam: Present: other (Right hip, right knee times palpation, mild shortening rotation) Course Vital Signs 12/12/20 12:52 Temperature 98 F Pulse Rate 85 Respiratory 18 Rate Blood Pressure 161/81 O2 Sat by Pulse 96 Oximetry Medical Decision Making - Medical Decision Making X-ray and CT unremarkable there are no acute fracture. Patient we discharged with follow-up with orthopedics. Patient provided pain relief Disposition Clinical Impression: Fall, Contusion of right hip, Contusion of right knee Disposition: HOME SELF-CARE Condition: Stable Instructions (If sedation given, give patient instructions): Fall Prevention for Older Adults (ED) Additional Instructions: Please return to the Emergency Department if symptoms worsen or any other concerns. Is patient prescribed a controlled substance at d/c from ED?: No Referrals: Juan Yi DO [Primary Care Provider] - 1-2 days Rick Calderon DO [Doctor of Osteopathic Medicine] - 1-2 days Time of Disposition: 14:58
--- NOTE | 2020-12-12 14:09 | XR ---
EXAMINATION TYPE: XR Hip RT and AP Pelvis DATE OF EXAM: 12/12/2020 COMPARISON: NONE HISTORY: Right hip pain TECHNIQUE: A single AP view of the pelvis is obtained. Two views of the right hip are obtained. FINDINGS: There is a moderate to severe arthropathy of the hips. Vascular calcifications are noted. S I joints symmetric. Correlate for femoral acetabular impingement. No acute fracture or dislocation. IMPRESSION: 1. Severe arthropathy of the right hip correlate for femoral acetabular impingement.
--- NOTE | 2020-12-12 14:49 | CT ---
EXAMINATION TYPE: CT hip RT wo con DATE OF EXAM: 12/12/2020 COMPARISON: Hip radiograph same day HISTORY: Right hip pain post fall x2 days ago. TECHNIQUE: Multiple contiguous axial CT images were performed of the right hip without the administra tion of intravenous contrast. 2-D sagittal and coronal reformatted images were obtained. 3-D post pro cessing reconstructed images were performed on an independent workstation for better evaluation of th e osseous structures. Dose reduction techniques were utilized. CT DLP: 506 mGycm Automated exposure control for dose reduction was used. FINDINGS: No acute fracture or dislocation. Advanced degenerative changes of the right hip. Subcutaneous soft t issues appear unremarkable without significant swelling or hematoma. Atherosclerotic vascular calcifications of the partially visualized right iliac arteries. Urinary jessica dder appears over distended. Moderate amount stool within the rectal vault. IMPRESSION: 1. No acute fracture or dislocation of the right hip. 2. Advanced degenerative changes of the right hip.
[2020-12-12] MEDS ORDERED: ACET/COD 300 MG/30 MG STARTER PACK 6 TAB BTL PO STA (14:57)
[2020-12-12 15:41] VITALS: BP 172/80; PULSE 74; RESP 22
--- NOTE | 2020-12-13 11:41 | XR ---
EXAMINATION TYPE: XR knee complete RT DATE OF EXAM: 12/12/2020 COMPARISON: NONE HISTORY: Pain TECHNIQUE: Three views are submitted. FINDINGS: Diffuse osteopenia with chondrocalcinosis. Small amount suprapatellar bursal fluid. Vascular calcific ations. No erosive change or acute fracture.. Osseous structures are intact. No acute fracture seen . IMPRESSION: 1. Arthropathy with small amount of fluid in the suprapatellar bursa. Correlate clinically..
== END 2020-12-12 15:42 | disposition home or self-care (01) ==
LOC: EC 12:49
DX: S70.01XA Contusion of right hip, initial encounter (principal); S80.01XA Contusion of right knee, initial encounter; I13.0 Hypertensive heart and chronic kidney disease with heart failure and stage 1 through stage 4 chronic kidney disease, or unspecified chronic kidney disease; I50.9 Heart failure, unspecified; N18.30 Chronic kidney disease, stage 3 unspecified; I25.2 Old myocardial infarction; I25.10 Atherosclerotic heart disease of native coronary artery without angina pectoris; F17.200 Nicotine dependence, unspecified, uncomplicated; Z79.01 Long term (current) use of anticoagulants; Z79.82 Long term (current) use of aspirin; Z79.899 Other long term (current) drug therapy; Z86.711 Personal history of pulmonary embolism; Z95.1 Presence of aortocoronary bypass graft; W01.0XXA Fall on same level from slipping, tripping and stumbling without subsequent striking against object, initial encounter
CPT/HCPCS: 73502; 99285

== ENCOUNTER 2023-10-15 15:27 | Inpatient (IN) | payer MEDICARE ==
[2023-10-15] MEDS: IPRATROPIUM-ALBUTEROL 3 ML NEB INHALATION STA (16:48)
[2023-10-15 17:05] LABS: Basophils % (A) 0 %; Eosinophils # (A) 0.2 k/uL (0-0.7); Eosinophils % (A) 3 %; HCT 28.5 % (39.0-53.0); HGB 9.1 gm/dL (13.0-17.5); Hypochromasia Moderate; Lymphocytes # (A) 0.9 k/uL (1.0-4.8); Lymphocytes % (A) 14 %; MCH 37.2 pg (25.0-35.0); MCV 116.3 fL (80.0-100.0); Macrocytosis Marked; Mean Platelet Volume 9.3; Monocytes # (A) 0.6 k/uL (0-1.0); Monocytes % (A) 9 %; Neutrophils # (A) 4.3 k/uL (1.3-7.7); Neutrophils % (A) 71 %; Platelet Count 237 k/uL (150-450); Poikilocytosis Slight; RBC 2.45 m/uL (4.30-5.90); WBC 6.1 k/uL (3.8-10.6)
[2023-10-15] MEDS: methylPREDNISolone SOD SUCCI 125 MG/2 ML VIAL IV STA (17:14)
[2023-10-15 17:17] LABS: INR 1.1 (<1.2); Prothrombin Time 11.6 sec (10.0-12.5)
[2023-10-15] MEDS: MAGNESIUM SULFATE-D5W PMX 1 GM in DEXTROSE/WATER 1 100ML.BAG IVPB STA (17:17)
[2023-10-15 17:25] LABS: ALT 11 U/L (4-49); AST 24 U/L (17-59); African American GFR (CKD) 41 (>60 ml/min/1.73 sqM); Albumin 2.9 g/dL (3.5-5.0); Alkaline Phosphatase 57 U/L (38-126); Anion Gap 8 mmol/L; Blood Urea Nitrogen 48 mg/dL (9-20); Calcium 8.8 mg/dL (8.4-10.2); Carbon Dioxide 21 mmol/L (22-30); Chloride 106 mmol/L (98-107); Glucose 96 mg/dL (74-99); Magnesium 1.9 mg/dL (1.6-2.3); Non-African American GFR(CKD) 35 (>60 ml/min/1.73 sqM); Potassium 4.1 mmol/L (3.5-5.1); Sodium 135 mmol/L (137-145); Total Bilirubin 0.9 mg/dL (0.2-1.3); Total Protein 6.1 g/dL (6.3-8.2)
--- NOTE | 2023-10-15 17:29 | ED ---
General Adult HPI - General Chief complaint: Shortness of Breath Time Seen by Provider: 10/15/23 16:30 Source: patient, EMS, RN notes reviewed, old records reviewed Mode of arrival: EMS - History of Present Illness Initial comments: Patient is a 72-year-old male with past medical history remarkable for CHF, COPD, NH, CKD who presents with chronic leg wounds currently on antibiotics for nursing facility, [facility] report urine presents emergency department complaining of an aspiration event. Patient apparently took his medications and aspirated. Desaturated at the facility. Was sent here for further evaluation. I evaluated the patient at the beginning my shift when he was placed in a room. He currently is requiring nonrebreather. States he is not on oxygen at home. Is wheezing and coarse in bilateral lung landa. Has no acute complaints otherwise. Has chronic right lower extremity wound and states he is on antibiotics for he thinks. Is currently at [facility] for further monitoring and management. Aspiration event occurred shortly prior to arrival. - Related Data Home Medications Medication Instructions Recorded Confirmed Simvastatin 40 mg PO HS 09/05/19 10/15/23 Budesonide [Pulmicort] 0.5 mg INHALATION RT-BID 10/15/23 10/15/23 Gabapentin [Neurontin] 100 mg PO TID 10/15/23 10/15/23 HYDROcodone/APAP 10-325MG [[place] 1 tab PO Q6H 10/15/23 10/15/23 10-325] Ipratropium-Albuterol Nebulize 3 ml INHALATION RT-Q6H PRN 10/15/23 10/15/23 [Duoneb 0.5 mg-3 mg/3 ml Soln] Lactulose [Constulose] 20 gm PO Q12H PRN 10/15/23 10/15/23 Melatonin 5 mg PO HS 10/15/23 10/15/23 Montelukast [Singulair] 10 mg PO HS 10/15/23 10/15/23 Prostat 30 ml PO BID 10/15/23 10/15/23 Tamsulosin HCl [Flomax] 0.4 mg PO DAILY 10/15/23 10/15/23 Thiamine [Vitamin B-1] 100 mg PO DAILY 10/15/23 10/15/23 allopurinoL 100 mg PO DAILY 10/15/23 10/15/23 Previous Rx's Medication Instructions Recorded Furosemide [Lasix] 40 mg PO DAILY tab 01/12/20 Allergies Allergy/AdvReac Type Severity Reaction Status Date / Time No Known Allergies Allergy Verified 12/12/20 13:00 Review of Systems ROS Statement: Those systems with pertinent positive or pertinent negative responses have been documented in the HPI. Review of Systems: CONST: Denies fever EYES: Denies blurry vision ENT: Denies nasal congestion C/V: Denies Chest pain RESP: Endorses dyspnea GI: Denies abdominal pain : Denies dysuria SKIN: Endorses chronic leg wound MSK: Denies joint pain. NEURO: Denies headache ROS Other: All systems not noted in ROS Statement are negative. Past Medical History Past Medical History: Heart Failure, COPD, Hypertension, Myocardial Infarction ([place]), Pulmonary Embolus ([place]) Additional Past Medical History / Comment(s): Chronic kidney disease stage III, multiple falls, chronic anemia, coronary artery disease, previous bypass surgery, peripheral vascular disease, hypertension, previous history of pulmonary embolism Last Myocardial Infarction Date:: UNSURE History of Any Multi-Drug Resistant Organisms: None Reported Past Surgical History: Coronary Bypass/CABG, Heart Catheterization With Stent Past Anesthesia/Blood Transfusion Reactions: No Reported Reaction Date of Last Stent Placement:: UNSURE Past Psychological History: No Psychological Hx Reported Smoking Status: Current every day smoker Past Alcohol Use History: Daily Past Drug Use History: None Reported - Past Family History Mother History Unknown: Yes General Exam - General Exam Comments Initial Comments: General: Appears in mild respiratory distress. HEAD: Normal with no signs of head trauma. EYES: PERRLA, EOMI, conjunctiva normal, no discharge. ENT: Hearing grossly intact, normal oropharynx. RESPIRATORY: Wheezy coarse breath sounds bilaterally. Hypoxic on room air to 77 with increased work of breathing initially. Improved following breathing treatments. Weaned from nonrebreather to Ventimask. C/V: Regular rate and rhythm. S1 and S2 auscultated, metrical bilateral lower extremity pitting edema, peripheral pulses 2+ and intact throughout ABD: Abd is soft, nontender, nondistended EXT: Normal range of motion, no obvious deformity SKIN: Patient has a chronic leg wound on the right lower extremity as well as foot. Some mild surrounding erythema. NEURO: Alert and oriented x 4. Cranial nerves II-XII intact. No focal sensory or strength deficits. Course Vital Signs 10/15/23 10/15/23 10/15/23 15:27 16:49 16:58 Temperature 98.1 F Pulse Rate 86 72 Respiratory 26 H Rate Blood Pressure 93/77 O2 Sat by Pulse 77 L Oximetry Fraction of 50 Inspired Oxygen (FIO2) 10/15/23 10/15/23 10/15/23 17:18 19:27 20:54 Temperature Pulse Rate 80 71 71 Respiratory 22 20 24 Rate Blood Pressure 109/67 134/85 119/84 O2 Sat by Pulse 92 L 97 94 L Oximetry Fraction of Inspired Oxygen (FIO2) Medical Decision Making - Medical Decision Making Was pt. sent in by a medical professional or institution (, PA, PROFESSIONAL APPLICATION DESIGNER, urgent care, hospital, or shelter...) When possible be specific @ -Sent from [facility] report here in over concern for aspiration event Did you speak to anyone other than the patient for history (EMS, parent, family, police, friend...)? What history was obtained from this source @ -No Did you review nursing and triage notes (agree or disagree)? Why? @ -I reviewed and agree with nursing and triage notes Were old charts reviewed (outside hosp., previous admission, EMS record, old EKG, old radiological studies, urgent care reports/EKG's, shelter records)? Report findings @ -Old charts were reviewed however no recent charts. Prior labs confirmed chronic anemia. Compared current EKG with EKG from November 2020 with no significant acute change. Differential Diagnosis (chest pain, altered mental status, abdominal pain women, abdominal pain men, vaginal bleeding, weakness, fever, dyspnea, syncope, headache, dizziness, GI bleed, back pain, seizure, CVA, palpatations, mental health, musculoskeletal)? @ -Differential Dyspnea: Coronary syndrome, arrhythmia, tamponade, asthma, COPD, pulmonary embolism, pneumonia, pneumothorax, pulmonary effusion, anaphylaxis, diabetic ketoacidosis, flailed chest, pulmonary contusion, diaphragmatic rupture, anemia, neuromuscular, this is not meant to be an all-inclusive list. EKG interpreted by me (3pts min.). @ -As above X-rays interpreted by me (1pt min.). @ -Chest x-ray shows right lower lobe suspected aspiration pneumonia. CT interpreted by me (1pt min.). @ -None done U/S interpreted by me (1pt. min.). @ -None done What testing was considered but not performed or refused? (CT, X-rays, U/S, labs)? Why? @ -None What meds were considered but not given or refused? Why? @ -None Did you discuss the management of the patient with other professionals (professionals i.e. , PA, PROFESSIONAL APPLICATION DESIGNER, lab, RT, psych nurse, social studies teacher, criminal lawyer, teacher, credit control officer, case worker)? Give summary @ -Case with admitting team, Dr. Espino who accepted the admission and requested I notified the milk drying machine operator, Dr. Joshua who was in agreement with the plan. Was smoking cessation discussed for >3mins.? @ -No Was critical care preformed (if so, how long)? @ -Yes, 35 minutes. Were there social determinants of health that impacted care today? How? (Homelessness, low income, unemployed, alcoholism, drug addiction, transportation, low edu. Level, literacy, decrease access to med. care, group home, rehab)? @ -No Was there de-escalation of care discussed even if they declined (Discuss DNR or withdrawal of care, Hospice)? DNR status @ -No What co-morbidities impacted this encounter? (DM, HTN, Smoking, COPD, CAD, Cancer, CVA, ARF, Chemo, Hep., AIDS, mental health diagnosis, sleep apnea, morbid obesity)? @ -COPD, CHF Was patient admitted / discharged? Hospital course, mention meds given and route, prescriptions, significant lab abnormalities, going to OR and other pertinent info. @ -Based on patient's presentation and physical exam, presents emergency department for evaluation and aspiration event. Also appears to be suffering from COPD. Has wheezing coarse breath sounds bilaterally. Patient will be given breathing treatment. Will continue with supplemental oxygenation, and patient claims he is not on oxygen at home. Will attempt to wean him as possible. Patient will likely be admitted to the hospital. He will be given IV steroids as well. Patient was in agreement this plan. Vital signs otherwise within acceptable limits. We were able to wean the patient down to a Ventimask with FiO2 of 50 and a flow rate of 15. Will continue to attempt to wean. Respiratory is aware. Patient's breathing did improve following breathing treatment as well as steroids. EKG shows no signs of acute ischemia.Chest x-ray shows right lower lobe aspiration pneumonia. Labs remarkable for chronic anemia. Elevated BNP of 13,000. Urinalysis positive for UTI and Rooney catheter was swapped out. Due to concern for aspiration pneumonia, patient was started on IV Zosyn, azithromycin, Flagyl. He will be admitted to the hospital. Will continue with breathing treatments and IV steroids. He was in agreement this plan. Pulmonology consulted. I contacted Dr. Garcia to make him aware of the consult the request of the admitting team Dr. Espino who did accept the patient under their service. Undiagnosed new problem with uncertain prognosis? @ -No Drug Therapy requiring intensive monitoring for toxicity (Heparin, Nitro, Insulin, Cardizem)? @ -No Were any procedures done? @ -No Diagnosis/symptom? @ -Acute hypoxic respiratory failure secondary to COPD exacerbation and aspiration pneumonia Acute, or Chronic, or Acute on Chronic? @ -Acute Uncomplicated (without systemic symptoms) or Complicated (systemic symptoms)? @ -Complicated Side effects of treatment? @ -None Exacerbation, Progression, or Severe Exacerbation] @ -No Poses a threat to life or bodily function? @ -Yes - Lab Data Result diagrams: 10/15/23 16:45 10/15/23 16:45 Lab Results 10/15/23 10/15/23 10/15/23 Range/Units 16:45 16:45 16:45 WBC 6.1 (3.8-10.6) k/uL RBC 2.45 L (4.30-5.90) m/uL Hgb 9.1 L (13.0-17.5) gm/dL Hct 28.5 L (39.0-53.0) % MCV 116.3 H (80.0-100.0) fL MCH 37.2 H (25.0-35.0) pg MCHC 32.0 (31.0-37.0) g/dL RDW 16.0 H (11.5-15.5) % Plt Count 237 (150-450) k/uL MPV 9.3 Neutrophils % 71 % Lymphocytes % 14 % Monocytes % 9 % Eosinophils % 3 % Basophils % 0 % Neutrophils # 4.3 (1.3-7.7) k/uL Lymphocytes # 0.9 L (1.0-4.8) k/uL Monocytes # 0.6 (0-1.0) k/uL Eosinophils # 0.2 (0-0.7) k/uL Basophils # 0.0 (0-0.2) k/uL Manual Slide Review Performed Hypochromasia Moderate Poikilocytosis Slight Macrocytosis Marked A PT 11.6 (10.0-12.5) sec INR 1.1 (<1.2) APTT 28.0 (22.0-30.0) sec Sodium 135 L (137-145) mmol/L Potassium 4.1 (3.5-5.1) mmol/L Chloride 106 (98-107) mmol/L Carbon Dioxide 21 L (22-30) mmol/L Anion Gap 8 mmol/L BUN 48 H (9-20) mg/dL Creatinine 1.86 H (0.66-1.25) mg/dL Est GFR (CKD-EPI)AfAm 41 (>60 ml/min/1.73 sqM) Est GFR (CKD-EPI)NonAf 35 (>60 ml/min/1.73 sqM) Glucose 96 (74-99) mg/dL Plasma Lactic Acid John (0.7-2.0) mmol/L Calcium 8.8 (8.4-10.2) mg/dL Magnesium 1.9 (1.6-2.3) mg/dL Total Bilirubin 0.9 (0.2-1.3) mg/dL AST 24 (17-59) U/L ALT 11 (4-49) U/L Alkaline Phosphatase 57 (38-126) U/L NT-Pro-B Natriuret Pep 77135 pg/mL Total Protein 6.1 L (6.3-8.2) g/dL Albumin 2.9 L (3.5-5.0) g/dL Urine Color Urine Appearance (Clear) Urine pH (5.0-8.0) Ur Specific [place] (1.001-1.035) Urine Protein (Negative) Urine Glucose (UA) (Negative) Urine Ketones (Negative) Urine Blood (Negative) Urine Nitrite (Negative) Urine Bilirubin (Negative) Urine Urobilinogen (<2.0) mg/dL Ur Leukocyte Esterase (Negative) Urine RBC (0-5) /hpf Urine WBC (0-5) /hpf Urine WBC Clumps (None) /hpf Ur Transition Epith Cell (0-1) /hpf Urine Bacteria (None) /hpf Hyaline Casts (0-2) /lpf Urine Mucus (None) /hpf Influenza Type A (PCR) (Not Detectd) Influenza Type B (PCR) (Not Detectd) RSV (PCR) (Not Detectd) SARS-CoV-2 (PCR) (Not Detectd) 10/15/23 10/15/23 10/15/23 Range/Units 16:45 16:49 17:14 WBC (3.8-10.6) k/uL RBC (4.30-5.90) m/uL Hgb (13.0-17.5) gm/dL Hct (39.0-53.0) % MCV (80.0-100.0) fL MCH (25.0-35.0) pg MCHC (31.0-37.0) g/dL RDW (11.5-15.5) % Plt Count (150-450) k/uL MPV Neutrophils % % Lymphocytes % % Monocytes % % Eosinophils % % Basophils % % Neutrophils # (1.3-7.7) k/uL Lymphocytes # (1.0-4.8) k/uL Monocytes # (0-1.0) k/uL Eosinophils # (0-0.7) k/uL Basophils # (0-0.2) k/uL Manual Slide Review Hypochromasia Poikilocytosis Macrocytosis PT (10.0-12.5) sec INR (<1.2) APTT (22.0-30.0) sec Sodium (137-145) mmol/L Potassium (3.5-5.1) mmol/L Chloride (98-107) mmol/L Carbon Dioxide (22-30) mmol/L Anion Gap mmol/L BUN (9-20) mg/dL Creatinine (0.66-1.25) mg/dL Est GFR (CKD-EPI)AfAm (>60 ml/min/1.73 sqM) Est GFR (CKD-EPI)NonAf (>60 ml/min/1.73 sqM) Glucose (74-99) mg/dL Plasma Lactic Acid John 1.4 (0.7-2.0) mmol/L Calcium (8.4-10.2) mg/dL Magnesium (1.6-2.3) mg/dL Total Bilirubin (0.2-1.3) mg/dL AST (17-59) U/L ALT (4-49) U/L Alkaline Phosphatase (38-126) U/L NT-Pro-B Natriuret Pep pg/mL Total Protein (6.3-8.2) g/dL Albumin (3.5-5.0) g/dL Urine Color Light Yellow Urine Appearance Turbid (Clear) Urine pH 5.5 (5.0-8.0) Ur Specific [place] 1.013 (1.001-1.035) Urine Protein 1+ H (Negative) Urine Glucose (UA) Negative (Negative) Urine Ketones Negative (Negative) Urine Blood Large H (Negative) Urine Nitrite Positive (Negative) Urine Bilirubin Negative (Negative) Urine Urobilinogen <2.0 (<2.0) mg/dL Ur Leukocyte Esterase Large H (Negative) Urine RBC 42 H (0-5) /hpf Urine WBC 165 H (0-5) /hpf Urine WBC Clumps Few H (None) /hpf Ur Transition Epith Cell 1 (0-1) /hpf Urine Bacteria Few H (None) /hpf Hyaline Casts 5 H (0-2) /lpf Urine Mucus Rare H (None) /hpf Influenza Type A (PCR) Not Detected (Not Detectd) Influenza Type B (PCR) Not Detected (Not Detectd) RSV (PCR) Not Detected (Not Detectd) SARS-CoV-2 (PCR) Not Detected (Not Detectd) - EKG Data -: EKG Interpreted by Me EKG Comments: 12-lead Electrocardiogram Interpretation Note EKG was reviewed and interpreted by myself. 12-lead ECG performed at 1707 is interpreted by me as revealing normal sinus rhythm at a rate of 74 beats per minute. [place] is normal. DC interval is 233 ms, QRS duration is 92 ms, QTc is 435 ms.. There were no ST or T wave abnormalities to suggest myocardial ischemia or injury. R wave progression across the precordium was delayed. By my interpretation this EKG is non-diagnostic for acute ischemia. Critical Care Time Critical Care Time: Yes Total Critical Care Time: 35 Disposition Clinical Impression: COPD (chronic obstructive pulmonary disease), Aspiration pneumonia, UTI (urinary tract infection), Hypoxic respiratory failure Disposition: ADMITTED IP TO THIS HOSP Condition: Serious Time of Disposition: 18:15
[2023-10-15 17:33] LABS: NT-Pro-B-Type Natriuretic Pept 13400 pg/mL
--- NOTE | 2023-10-15 17:57 | XR ---
EXAMINATION TYPE: XR chest 1V portable DATE OF EXAM: 10/15/2023 5:38 PM CLINICAL INDICATION:Male, 72 years old with history of dyspnea; [facility] COMPARISON: Chest radiographs from 11/14/2020. TECHNIQUE: XR chest 1V portable Frontal view of the chest. FINDINGS: Lungs/Pleura: Low lung volumes. Increased airspace opacities in the right lower lung. There is no memo dence of pleural effusion, left focal consolidation, or pneumothorax. Pulmonary vascularity: Unremarkable. Heart/mediastinum: Cardiomediastinal silhouette is unremarkable. Musculoskeletal: No acute osseous pathology. Midline sternotomy wires are noted. Other findings: None IMPRESSION: Low lung volumes with right lower lung airspace opacities correlate for pneumonia versus atelectasis.
[2023-10-15] MEDS ORDERED: PNEUMONIA PROTOCOL UTILIZED 1 EACH MISC PO PRN ×2 (18:19→18:24)
[2023-10-15] MEDS ORDERED: IPRATROPIUM-ALBUTEROL 3 ML NEB INHALATION PRN (18:19)
[2023-10-15 18:21] LABS: Appearance,Urine Turbid (Clear); Bacteria,Urine Few /hpf; Bilirubin,Urine Negative (Negative); Blood,Urine Large (Negative); Color,Urine Light Yellow; Glucose,Urine (UA) Negative (Negative); Hyaline Casts,Urine 5 /lpf (0-2); Ketones,Urine Negative (Negative); Leukocyte Esterase,Urine Large (Negative); Mucus,Urine Rare /hpf; Nitrite,Urine Positive (Negative); PH, Urine 5.5 (5.0-8.0); Protein,Urine 1+ (Negative); RBC,Urine 42 /hpf (0-5); Specific Gravity,Urine 1.013 (1.001-1.035); Transitional Epi Cells,Urine 1 /hpf (0-1); Urobilinogen,Urine <2.0 mg/dL (<2.0); WBC,Urine 165 /hpf (0-5)
[2023-10-15] MEDS ORDERED: ACETAMINOPHEN TAB 325 MG TAB PO PRN (18:26)
[2023-10-15] MEDS ORDERED: ONDANSETRON 4 MG/2 ML VIAL IVP PRN (18:26)
[2023-10-15] MEDS ORDERED: NALOXONE 0.4 MG/ML 1 ML VIAL IV PRN (18:26)
[2023-10-15] MEDS ORDERED: LACTULOSE 20 GM/30 ML CUP PO PRN (18:28)
[2023-10-15] MEDS: AZITHROMYCIN 500 MG in SODIUM CHLORIDE 0.9% 250 ML IVPB STA (19:19)
[2023-10-15] MEDS: BUDESONIDE 0.5 MG/2 ML NEBU INHALATION SCH (19:45)
[2023-10-15] MEDS: methylPREDNISolone SOD SUCCI 40 MG/ML 1 ML VIAL IV SCH (20:53)
[2023-10-15] MEDS: HYDROcodone/APAP 10-325MG 1 EACH TAB PO SCH (20:53)
[2023-10-15] MEDS: MELATONIN 5 MG TABLET PO SCH (20:53)
[2023-10-15] MEDS: GABAPENTIN 100 MG CAP PO SCH (20:53)
[2023-10-15] MEDS: PIPERACILLIN-TAZOBACTAM 3.375 GM in SODIUM CHLORIDE 0.9% 100 ML IVPB STA (20:53)
[2023-10-15] MEDS: ATORVASTATIN 20 MG TAB PO SCH (20:53)
[2023-10-16] MEDS ORDERED: metroNIDAZOLE-NS PMX 500 MG in SALINE 1 100ML.BAG IVPB SCH
[2023-10-16] MEDS: AZITHROMYCIN 500 MG in SODIUM CHLORIDE 0.9% 250 ML IVPB STA (00:42)
[2023-10-16] MEDS: metroNIDAZOLE-NS PMX 500 MG in SALINE 1 100ML.BAG IVPB SCH (00:56)
[2023-10-16] MEDS: PIPERACILLIN-TAZOBACTAM 3.375 GM in SODIUM CHLORIDE 0.9% 100 ML IVPB SCH (04:24)
[2023-10-16 05:54] LABS: Basophils % (A) 0 %; Eosinophils % (A) 0 %; HCT 32.3 % (39.0-53.0); Hypochromasia Marked; Lymphocytes # (A) 0.3 k/uL (1.0-4.8); Lymphocytes % (A) 8 %; MCH 36.3 pg (25.0-35.0); MCHC 30.9 g/dL (31.0-37.0); MCV 117.7 fL (80.0-100.0); Macrocytosis Marked; Mean Platelet Volume 8.7; Monocytes # (A) 0.1 k/uL (0-1.0); Monocytes % (A) 2 %; Neutrophils # (A) 3.8 k/uL (1.3-7.7); Neutrophils % (A) 90 %; Platelet Count 240 k/uL (150-450); RBC 2.74 m/uL (4.30-5.90); WBC 4.2 k/uL (3.8-10.6)
[2023-10-16 06:08] LABS: ALT 12 U/L (4-49); AST 19 U/L (17-59); African American GFR (CKD) 41 (>60 ml/min/1.73 sqM); Albumin 3.1 g/dL (3.5-5.0); Alkaline Phosphatase 60 U/L (38-126); Anion Gap 9 mmol/L; Blood Urea Nitrogen 46 mg/dL (9-20); Calcium 9.1 mg/dL (8.4-10.2); Carbon Dioxide 22 mmol/L (22-30); Chloride 106 mmol/L (98-107); Glucose 138 mg/dL (74-99); Non-African American GFR(CKD) 35 (>60 ml/min/1.73 sqM); Potassium 4.3 mmol/L (3.5-5.1); Sodium 137 mmol/L (137-145); Total Bilirubin 0.9 mg/dL (0.2-1.3); Total Protein 6.4 g/dL (6.3-8.2)
--- NOTE | 2023-10-16 06:08 | P.CNPUL ---
History of Present Illness Consult date: 10/16/23 Requesting physician: Tony Morales Reason for consult: other (Hypoxia, aspiration pneumonitis) Chief complaint: Choking, acute shortness of breath History of present illness: Patient is a 72-year-old white male with past medical history significant for COPD, remote history of pulmonary embolism, coronary artery disease with previous bypass surgery, CVA/TIA, heart failure, chronic kidney disease stage III, chronic leg wounds, among many other comorbidities. Patient is a poor historian. He does not know why he is at the hospital. Upon review of ER documentation upon review of ER documentation, patient was sent in from [facility] after the patient was witnessed to choke on his medications and likely aspirated. He was noted to be in some respiratory distress and hypoxic. EMS transfer the patient to [facility] emergency department yesterday evening, and was placed on a 15 L nonrebreather. Chest x-ray showed low lung volumes with right lower lung airspace opacity concerning for aspiration pneumonitis versus atelectasis. Patient was started on a combination of antibiotics including Zosyn, Flagyl, and azithromycin. CBC drawn in the emergency room: WBC count 6.1, hemoglobin 9.1, hematocrit 28.5, platelets 237. CMP on arrival: Sodium 135, potassium 4.1, chloride 106, serum bicarb 21, BUN 48, creatinine 1.86, glucose 96. Lactic 1.4. LFTs not elevated. NT proBNP 13,400. Urinalysis showing nitrates, large leukocyte, and few bacteria. I am evaluating this patient in the emergency department, room 11. Remains on supplemental oxygen, he is on a 50% Ventimask. He is rhonchorous. He is afebrile. Negative for influenza, RSV, COVID. Remaining vital signs are stable. Review of Systems ROS unobtainable: due to mental status Past Medical History Past Medical History: Heart Failure, COPD, Hypertension, Myocardial Infarction ([place]), Pulmonary Embolus ([place]) Additional Past Medical History / Comment(s): Chronic kidney disease stage III, multiple falls, chronic anemia, coronary artery disease, previous bypass surgery, peripheral vascular disease, hypertension, previous history of pulmonary embolism Last Myocardial Infarction Date:: UNSURE History of Any Multi-Drug Resistant Organisms: None Reported Past Surgical History: Coronary Bypass/CABG, Heart Catheterization With Stent Past Anesthesia/Blood Transfusion Reactions: No Reported Reaction Date of Last Stent Placement:: UNSURE Past Psychological History: No Psychological Hx Reported Smoking Status: Current every day smoker Past Alcohol Use History: Daily Past Drug Use History: None Reported - Past Family History Mother History Unknown: Yes Medications and Allergies Home Medications Medication Instructions Recorded Confirmed Type Simvastatin 40 mg PO HS 09/05/19 10/15/23 History Furosemide [Lasix] 40 mg PO DAILY tab 01/12/20 10/15/23 Rx Budesonide [Pulmicort] 0.5 mg INHALATION RT-BID 10/15/23 10/15/23 History Gabapentin [Neurontin] 100 mg PO TID 10/15/23 10/15/23 History HYDROcodone/APAP 10-325MG [[place] 1 tab PO Q6H 10/15/23 10/15/23 History 10-325] Ipratropium-Albuterol Nebulize 3 ml INHALATION RT-Q6H PRN 10/15/23 10/15/23 History [Duoneb 0.5 mg-3 mg/3 ml Soln] Lactulose [Constulose] 20 gm PO Q12H PRN 10/15/23 10/15/23 History Melatonin 5 mg PO HS 10/15/23 10/15/23 History Montelukast [Singulair] 10 mg PO HS 10/15/23 10/15/23 History Prostat 30 ml PO BID 10/15/23 10/15/23 History Tamsulosin HCl [Flomax] 0.4 mg PO DAILY 10/15/23 10/15/23 History Thiamine [Vitamin B-1] 100 mg PO DAILY 10/15/23 10/15/23 History allopurinoL 100 mg PO DAILY 10/15/23 10/15/23 History Allergies Allergy/AdvReac Type Severity Reaction Status Date / Time No Known Allergies Allergy Verified 12/12/20 13:00 Physical Exam Vitals: Vital Signs Temp Pulse Resp BP Pulse Ox FiO2 10/16/23 01:00 70 18 119/82 96 10/16/23 00:00 63 20 134/77 92 L 10/15/23 20:54 71 24 119/84 94 L 10/15/23 19:27 71 20 134/85 97 10/15/23 17:18 80 22 109/67 92 L 10/15/23 16:58 50 10/15/23 16:49 72 10/15/23 15:27 98.1 F 86 26 H 93/77 77 L Intake and Output 10/15/23 10/15/23 10/16/23 14:59 22:59 06:59 Other: Weight 105.233 kg GENERAL EXAM: Alert, 72-year-old white male, fairly comfortable in no apparent distress. HEAD: Normocephalic and atraumatic EYES: Normal reaction of pupils, equal size. NOSE: Clear with pink turbinates. THROAT: No erythema or exudates. NECK: No masses, no JVD. CHEST: No chest wall deformity. Old sternotomy incisional scar LUNGS: Equal air entry with bilateral rhonchi, worse on the right. On a 50% Ventimask. No conversational dyspnea or accessory muscle use. CVS: S1 and S2 normal with no audible murmur, regular rhythm. No extra heart sounds ABDOMEN: No hepatosplenomegaly, active bowel sounds, no guarding or rigidity. SPINE: No scoliosis or deformity SKIN: No rashes CENTRAL NERVOUS SYSTEM: Alert, only oriented to self. Follows simple commands. No focal deficits, tone is normal in all 4 extremities. EXTREMITIES: Bilateral lower extremity edema, chronic venous stasis changes, with multiple right lower extremity wounds involving the anterior hurley and foot, with purulent discharge. Results - Laboratory Findings CBC and BMP: 10/15/23 16:45 10/15/23 16:45 PT/INR, D-dimer PT 11.6 sec (10.0-12.5) 10/15/23 16:45 INR 1.1 (<1.2) 10/15/23 16:45 Abnormal lab findings: Abnormal Labs 10/15/23 10/15/23 10/15/23 16:45 16:45 17:14 RBC 2.45 L Hgb 9.1 L Hct 28.5 L MCV 116.3 H MCH 37.2 H RDW 16.0 H Lymphocytes # 0.9 L Macrocytosis Marked A Sodium 135 L Carbon Dioxide 21 L BUN 48 H Creatinine 1.86 H Total Protein 6.1 L Albumin 2.9 L Urine Protein 1+ H Urine Blood Large H Ur Leukocyte Esterase Large H Urine RBC 42 H Urine WBC 165 H Urine WBC Clumps Few H Urine Bacteria Few H Hyaline Casts 5 H Urine Mucus Rare H - Diagnostic Findings Chest x-ray: image reviewed Assessment and Plan Assessment: Acute hypoxemic respiratory failure, possibly secondary to aspiration and aspiration pneumonitis, patient reportedly had a witnessed aspiration event on his medications at his ECF, chest x-ray on arrival to the emergency department showed low lung volumes with right lower lung airspace opacities concerning for aspiration pneumonia versus atelectasis. Acute COPD exacerbation History of coronary artery disease with previous coronary artery bypass surgery History of heart failure with preserved ejection fraction History of peripheral arterial disease Chronic macrocytic anemia Chronic kidney disease stage III Possible UTI History of alcoholism History of CVA/TIA History of hyperlipidemia Remote history of pulmonary embolism, not on any anticoagulation currently Bilateral lower extremity edema Chronic right lower extremity wounds Former tobacco smoker Plan: Patient's medications, labs, imaging reviewed Continue to wean supplemental oxygen to maintain oxygen saturation of 90% or greater Continue combination of DuoNebs, budesonide inhalation, formoterol inhalation, and IV Solu-Medrol Continue empiric antibiotics in the form of Zosyn and Zithromax Blood cultures pending. Obtain sputum culture if possible. Check procalcitonin level Repeat chest x-ray in the morning Speech consult for swallow evaluation Aspiration precautions Home dose of Lasix has been resumed Consult wound care We will continue to follow I have personally seen and examined the patient, performed the documentation and the assessment and plan as written. Number of minutes spent on the visit:20 Time with Patient: Greater than 30
--- NOTE | 2023-10-16 08:10 | P.HPIM ---
History of Present Illness Patient is a pleasant 72 years old male with past medical history of heart failure, COPD, hypertension, pulmonary embolism, chronic kidney disease stage III, multiple falls, chronic anemia previous coronary artery bypass surgery, hy pertension. Patient from alf. At baseline he states he uses 2 to 3 L of oxygen via nasal cannula. Currently he is on 15 L via breathing mask Patient presents because of dyspnea from alf. Also patient complaining from right leg abnormality. There is superficial ulcers with some discharge. Patient denies chest pain or coughing No abdominal pain vomiting or diarrhea. No urinary complaint. No new headache weakness numbness or dizziness. Patient hemodynamically stable other than hypoxia. WBC is normal at 4.2, hemoglobin 10. Creatinine at baseline 1.8 with baseline 1.5-1.8 Other than that BMP and liver enzymes were unremarkable Influenza A and type B, RSV, SARS (coronavirus) are and detected Urine analysis is abnormal suspicious for infection Chest x-ray showing right lower lobe infiltrate suspicious for pneumonia EKG showing sinus rhythm at [address]-T changes with low voltage Patient already started on Zithromax ceftriaxone and IV Solu-Medrol Review of Systems Review of systems CONSTITUTIONAL: No fever, no malaise, no fatigue. HEENT: No recent visual problems or hearing problems. Denied any sore throat. CARDIOVASCULAR: No orthopnea, PND, no palpitations, no syncope. PULMONARY: no cough, no hemoptysis. GASTROINTESTINAL: No diarrhea, no nausea, no vomiting, no abdominal pain. Normoactive bowel sounds. NEUROLOGICAL: No headaches, no weakness, no numbness. HEMATOLOGICAL: Denies any bleeding or petechiae. GENITOURINARY: Denies any burning micturition, frequency, or urgency. MUSCULOSKELETAL/RHEUMATOLOGICAL: Denies any joint pain, swelling, or any muscle pain. ENDOCRINE: Denies any polyuria or polydipsia. Past Medical History Past Medical History: Heart Failure, COPD, Hypertension, Myocardial Infarction (PR), Pulmonary Embolus (PE) Additional Past Medical History / Comment(s): Chronic kidney disease stage III, multiple falls, chronic anemia, coronary artery disease, previous bypass surgery, peripheral vascular disease, hypertension, previous history of pulmonary embolism Last Myocardial Infarction Date:: UNSURE History of Any Multi-Drug Resistant Organisms: None Reported Past Surgical History: Coronary Bypass/CABG, Heart Catheterization With Stent Past Anesthesia/Blood Transfusion Reactions: No Reported Reaction Date of Last Stent Placement:: UNSURE Past Psychological History: No Psychological Hx Reported Smoking Status: Current every day smoker Past Alcohol Use History: Daily Past Drug Use History: None Reported - Past Family History Mother History Unknown: Yes Medications and Allergies Home Medications Medication Instructions Recorded Confirmed Type Simvastatin 40 mg PO HS 09/05/19 10/15/23 History Furosemide [Lasix] 40 mg PO DAILY tab 01/12/20 10/15/23 Rx Budesonide [Pulmicort] 0.5 mg INHALATION RT-BID 10/15/23 10/15/23 History Gabapentin [Neurontin] 100 mg PO TID 10/15/23 10/15/23 History HYDROcodone/APAP 10-325MG [[place] 1 tab PO Q6H 10/15/23 10/15/23 History 10-325] Ipratropium-Albuterol Nebulize 3 ml INHALATION RT-Q6H PRN 10/15/23 10/15/23 History [Duoneb 0.5 mg-3 mg/3 ml Soln] Lactulose [Constulose] 20 gm PO Q12H PRN 10/15/23 10/15/23 History Melatonin 5 mg PO HS 10/15/23 10/15/23 History Montelukast [Singulair] 10 mg PO HS 10/15/23 10/15/23 History Prostat 30 ml PO BID 10/15/23 10/15/23 History Tamsulosin HCl [Flomax] 0.4 mg PO DAILY 10/15/23 10/15/23 History Thiamine [Vitamin B-1] 100 mg PO DAILY 10/15/23 10/15/23 History allopurinoL 100 mg PO DAILY 10/15/23 10/15/23 History Allergies Allergy/AdvReac Type Severity Reaction Status Date / Time No Known Allergies Allergy Verified 12/12/20 13:00 Physical Exam Vitals: Vital Signs Temp Pulse Resp BP Pulse Ox FiO2 10/16/23 01:00 70 18 119/82 96 10/16/23 00:00 63 20 134/77 92 L 10/15/23 20:54 71 24 119/84 94 L 10/15/23 19:27 71 20 134/85 97 10/15/23 17:18 80 22 109/67 92 L 10/15/23 16:58 50 10/15/23 16:49 72 10/15/23 15:27 98.1 F 86 26 H 93/77 77 L Intake and Output 10/15/23 10/16/23 10/16/23 22:59 06:59 14:59 Other: Weight 105.233 kg GENERAL: The patient is alert and oriented x3, not in any acute distress. Well developed, well nourished. Generally weak HEENT: Pupils are round and equally reacting to light. EOMI. No scleral icterus. No conjunctival pallor. Normocephalic, atraumatic. No pharyngeal erythema. No thyromegaly. CARDIOVASCULAR: S1 and S2 present. No murmurs, rubs, or gallops. PULMONARY: Chest is clear to auscultation, no wheezing , no crackles. On oxygen Ventimask ABDOMEN: Soft, nontender, nondistended, normoactive bowel sounds. No palpable organomegaly. MUSCULOSKELETAL: No joint swelling or deformity. -EXTREMITIES: No cyanosis, clubbing,. Bilateral pitting leg edema. Right leg is warm, slightly red and swollen with 3 superficial ulcers on the anterior tibia with purulent discharge NEUROLOGICAL: Gross neurological examination did not reveal any focal deficits. SKIN: No rashes. no petechiae. Results CBC & Chem 7: 10/16/23 05:00 10/16/23 05:00 Labs: Abnormal Lab Results - Last 24 Hours (Table) 10/15/23 10/15/23 10/15/23 Range/Units 16:45 16:45 17:14 RBC 2.45 L (4.30-5.90) m/uL Hgb 9.1 L (13.0-17.5) gm/dL Hct 28.5 L (39.0-53.0) % MCV 116.3 H (80.0-100.0) fL MCH 37.2 H (25.0-35.0) pg MCHC (31.0-37.0) g/dL RDW 16.0 H (11.5-15.5) % Lymphocytes # 0.9 L (1.0-4.8) k/uL Macrocytosis Marked A Sodium 135 L (137-145) mmol/L Carbon Dioxide 21 L (22-30) mmol/L BUN 48 H (9-20) mg/dL Creatinine 1.86 H (0.66-1.25) mg/dL Glucose (74-99) mg/dL Total Protein 6.1 L (6.3-8.2) g/dL Albumin 2.9 L (3.5-5.0) g/dL Urine Protein 1+ H (Negative) Urine Blood Large H (Negative) Ur Leukocyte Esterase Large H (Negative) Urine RBC 42 H (0-5) /hpf Urine WBC 165 H (0-5) /hpf Urine WBC Clumps Few H (None) /hpf Urine Bacteria Few H (None) /hpf Hyaline Casts 5 H (0-2) /lpf Urine Mucus Rare H (None) /hpf 10/16/23 10/16/23 Range/Units 05:00 05:00 RBC 2.74 L (4.30-5.90) m/uL Hgb 10.0 L (13.0-17.5) gm/dL Hct 32.3 L (39.0-53.0) % MCV 117.7 H (80.0-100.0) fL MCH 36.3 H (25.0-35.0) pg MCHC 30.9 L (31.0-37.0) g/dL RDW 16.0 H (11.5-15.5) % Lymphocytes # 0.3 L (1.0-4.8) k/uL Macrocytosis Marked A Sodium (137-145) mmol/L Carbon Dioxide (22-30) mmol/L BUN 46 H (9-20) mg/dL Creatinine 1.88 H (0.66-1.25) mg/dL Glucose 138 H (74-99) mg/dL Total Protein (6.3-8.2) g/dL Albumin 3.1 L (3.5-5.0) g/dL Urine Protein (Negative) Urine Blood (Negative) Ur Leukocyte Esterase (Negative) Urine RBC (0-5) /hpf Urine WBC (0-5) /hpf Urine WBC Clumps (None) /hpf Urine Bacteria (None) /hpf Hyaline Casts (0-2) /lpf Urine Mucus (None) /hpf Assessment and Plan Assessment: Right lower lobe pneumonia suspicious for aspiration pneumonia Right leg cellulitis Acute on chronic CHF Acute on chronic hypoxic respiratory failure Coronary artery disease s/p stent and CABG History of pulmonary embolism on anticoagulation COPD with mild exacerbation Hypertension Plan: Start patient on IV Lasix 40 mg twice daily Continue with oxygen Continue with Pulmicort and Perforomist Continue with IV antibiotic, currently on IV ceftriaxone and send for wound culture Continue with IV Solu-Medrol Pulmonary consult Check ultrasound of the legs Labs and medication were reviewed.. Continue same treatment. Continue with symptomatic treatment. Resume home medication. Monitor labs and vitals. DVT and GI prophylaxis. Further recommendations as per clinical course of the patient DVT prophylaxis: Subcutaneous heparin GI Prophylaxis: Pepcid Prognosis is guarded
[2023-10-16] MEDS ORDERED: AMPICILLIN-SULBACTAM 3 GM in SODIUM CHLORIDE 0.9% 100 ML IVPB SCH (08:15)
[2023-10-16] MEDS: IPRATROPIUM-ALBUTEROL 3 ML NEB INHALATION SCH (09:00)
[2023-10-16] MEDS ORDERED: FUROSEMIDE 40 MG TAB PO SCH (09:00)
[2023-10-16] MEDS ORDERED: AZITHROMYCIN 500 MG TAB PO SCH (09:00)
[2023-10-16] MEDS: FORMOTEROL FUMARATE 20 MCG/2 ML NEBU INHALATION SCH (09:00)
--- NOTE | 2023-10-16 09:00 | US ---
EXAMINATION TYPE: US venous doppler duplex LE BI DATE OF EXAM: 10/16/2023 8:38 AM COMPARISON: 11/14/2020 CLINICAL INDICATION: Male, 72 years old with history of leg swelling; swelling, pt has history of DVT right leg in 2020 SIDE PERFORMED: Bilateral TECHNIQUE: The lower extremity deep venous system is examined utilizing real time linear array sonog zain with graded compression, doppler sonography and color-flow sonography. VESSELS IMAGED: Common Femoral Vein Deep Femoral Vein Greater Saphenous Vein * Femoral Vein Popliteal Vein Small Saphenous Vein * Proximal Calf Veins (* superficial vessels) Right Leg: Negative for acute DVT, probable chronic non-occluding DVT within right popliteal vein gi marga to mural based echoes and partial compressibility. Patient unable to tolerate compressions from g roin to lower femoral vein Left Leg: Negative for acute DVT / Pt unable to tolerate compressions from groin to lower femoral ve in IMPRESSION: 1. Findings suggest residual chronic, nonocclusive DVT right popliteal vein. 2. No occlusive/acute DVT otherwise identified within either lower extremity imaged from the groin to the upper calves.
--- NOTE | 2023-10-16 09:23 | XR ---
EXAMINATION TYPE: XR chest 1V portable DATE OF EXAM: 10/16/2023 6:11 AM CLINICAL INDICATION:Male, 72 years old with history of pneumonia; COMPARISON: Chest radiograph from one day prior. TECHNIQUE: XR chest 1V portable Frontal view of the chest. FINDINGS: Lungs/Pleura: There is no evidence of pleural effusion, focal consolidation, or pneumothorax. Pulmonary vascularity: Unremarkable. Heart/mediastinum: Cardiomediastinal silhouette is enlarged and stable. Musculoskeletal: No acute osseous pathology. Midline sternotomy wires are noted. Other findings: None IMPRESSION: Similar right lower lung haziness.
[2023-10-16] MEDS: TAMSULOSIN 0.4 MG CAP.ER.24H PO SCH (09:37)
[2023-10-16] MEDS: THIAMINE 100 MG TAB PO SCH (09:37)
[2023-10-16] MEDS: allopurinoL 100 MG TAB PO SCH (09:37)
[2023-10-16] MEDS: methylPREDNISolone SOD SUCCI 40 MG/ML 1 ML VIAL IV SCH (09:47)
[2023-10-16] MEDS: HEPARIN SODIUM,PORCINE 5,000 UNIT/ML 1 ML VIAL SQ SCH (09:51)
[2023-10-16] MEDS: FUROSEMIDE 10 MG/ML 4 ML VIAL IV SCH (09:55)
[2023-10-16] MEDS: FAMOTIDINE 20 MG/2 ML VIAL IV SCH (09:57)
[2023-10-16] MEDS: AZITHROMYCIN 500 MG in SODIUM CHLORIDE 0.9% 250 ML IVPB SCH (12:44)
[2023-10-16] MEDS: FAMOTIDINE 20 MG TAB PO SCH (22:06)
[2023-10-16] MEDS: ZINC OXIDE PASTE (Z-GUARD) 1 APPLIC TOPICAL SCH (22:07)
[2023-10-17] MEDS: HEPARIN SODIUM,PORCINE 5,000 UNIT/ML 1 ML VIAL SQ SCH (00:45)
--- NOTE | 2023-10-17 11:54 | P.CONS ---
History of Present Illness - Reason for Consult Consult date: 10/17/23 wound care - History of Present Illness This is a 72-year-old patient being seen on 3 S. for nonhealing ulceration to the right dorsal foot right anterior lower extremity and right plantar great toe. Patient has multiple open ulcerations to the anterior right lower extremity and dorsal foot with significant amount of slough and nonviable tissue minimal granulation noted within the wound bed. Patient also has a dry eschar area noted to the plantar right great toe. Patient has been utilizing an alginate dressing to the site. He is a poor historian on how long they have been there and how often the dressings are being managed. Patient is Past medical history significant for heart failure, COPD, hypertension, PE, chronic kidney disease stage III, peripheral vascular disease, current every day smoker. Patient denies diabetes. Review Of Systems: Constitutional: No fever, no chills, no night sweats. No weight change. No weakness, fatigue or lethargy. No daytime sleepiness. Integumentary:reports wounds, no lesions. No rash or pruritus. No unusual bruising. No change in hair or nails. Physical exam: General Appearance: Alert, cooperative, no distress, appears stated age. Skin: See HPI all other Skin color, texture, tugor normal, no rashes or lesions. Neurologic: Alert oriented x3 Assessment: 1. Nonhealing ulceration with fat layer exposure right lower extremity 2. Nonhealing ulceration right dorsal foot with fat layer exposure Plan: 1. Apply honey gel, dry gauze rolled gauze and secure with paper tape. Change Sunday. Patient would benefit from advanced wound care and [facility]. Will be happy to see him upon discharge. Patient is agreeable. Thank you for the consultation any questions please contact the wound care center DNP note has been reviewed and discussed with Dr. Hampton and the impression and plan of care has been directed as dictated. Past Medical History Past Medical History: Heart Failure, COPD, Hypertension, Myocardial Infarction (HI), Pulmonary Embolus (PE) Additional Past Medical History / Comment(s): Chronic kidney disease stage III, multiple falls, chronic anemia, coronary artery disease, previous bypass surgery, peripheral vascular disease, hypertension, previous history of pulmonary embolism Last Myocardial Infarction Date:: UNSURE History of Any Multi-Drug Resistant Organisms: None Reported Past Surgical History: Coronary Bypass/CABG, Heart Catheterization With Stent Past Anesthesia/Blood Transfusion Reactions: No Reported Reaction Date of Last Stent Placement:: UNSURE Smoking Status: Current every day smoker - Past Family History Mother History Unknown: Yes Medications and Allergies Home Medications Medication Instructions Recorded Confirmed Type Simvastatin 40 mg PO HS 09/05/19 10/15/23 History Furosemide [Lasix] 40 mg PO DAILY tab 01/12/20 10/15/23 Rx Budesonide [Pulmicort] 0.5 mg INHALATION RT-BID 10/15/23 10/15/23 History Gabapentin [Neurontin] 100 mg PO TID 10/15/23 10/15/23 History HYDROcodone/APAP 10-325MG [[place] 1 tab PO Q6H 10/15/23 10/15/23 History 10-325] Ipratropium-Albuterol Nebulize 3 ml INHALATION RT-Q6H PRN 10/15/23 10/15/23 History [Duoneb 0.5 mg-3 mg/3 ml Soln] Lactulose [Constulose] 20 gm PO Q12H PRN 10/15/23 10/15/23 History Melatonin 5 mg PO HS 10/15/23 10/15/23 History Montelukast [Singulair] 10 mg PO HS 10/15/23 10/15/23 History Prostat 30 ml PO BID 10/15/23 10/15/23 History Tamsulosin HCl [Flomax] 0.4 mg PO DAILY 10/15/23 10/15/23 History Thiamine [Vitamin B-1] 100 mg PO DAILY 10/15/23 10/15/23 History allopurinoL 100 mg PO DAILY 10/15/23 10/15/23 History Allergies Allergy/AdvReac Type Severity Reaction Status Date / Time No Known Allergies Allergy Verified 12/12/20 13:00 Physical Exam Vitals: Vital Signs Temp Pulse Pulse Resp BP BP Pulse Ox 10/17/23 09:43 76 10/17/23 09:32 72 10/17/23 09:22 72 99 10/17/23 08:00 97.8 F 93 20 119/72 95 10/17/23 04:00 97.8 F 90 20 118/71 93 L 10/17/23 00:00 98.1 F 89 22 150/84 90 L 10/16/23 20:29 75 10/16/23 20:18 73 10/16/23 18:56 84 18 118/73 94 L 10/16/23 16:15 80 18 106/68 95 10/16/23 15:44 96 FiO2 10/17/23 09:43 10/17/23 09:32 10/17/23 09:22 10/17/23 08:00 10/17/23 04:00 10/17/23 00:00 10/16/23 20:29 10/16/23 20:18 10/16/23 18:56 10/16/23 16:15 10/16/23 15:44 35 Intake and Output 10/16/23 10/17/23 10/17/23 22:59 06:59 14:59 Intake Total 240 Output Total 1000 450 Balance -760 -450 Intake: Oral 240 Output: Urine 1000 450 Other: Voiding Method Incontinent Incontinent Indwelling Catheter Indwelling Catheter Weight 10 kg 10 kg Results CBC & Chem 7: 10/16/23 05:00 10/16/23 05:00 Labs: Microbiology - Last 24 Hours (Table) 10/16/23 17:36 Urine Culture - Preliminary Urine,Catheterized Gram Neg Bacilli 10/16/23 17:19 Gram Stain - Preliminary Foot - Right 10/15/23 18:35 Blood Culture - Preliminary Blood 10/15/23 18:50 Blood Culture - Preliminary Blood Assessment and Plan (1) Non-pressure chronic ulcer of other part of right foot with fat layer exposed Current Visit: Yes Status: Acute Code(s): L97.512 - NON-PRS CHRONIC ULCER OTH PRT RIGHT FOOT W FAT LAYER EXPOSED SNOMED Code(s): 22399187762204622 (2) Non-pressure chronic ulcer of other part of right lower leg with fat layer exposed Current Visit: Yes Status: Acute Code(s): L97.812 - NON-PRS CHRONIC ULCER OTH PRT R LOW LEG W FAT LAYER EXPOSED SNOMED Code(s): 30529222362674338
[2023-10-17 11:59] LABS: Basophils % (A) 0 %; Eosinophils % (A) 0 %; HCT 30.2 % (39.0-53.0); HGB 9.5 gm/dL (13.0-17.5); Hypochromasia Marked; Lymphocytes # (A) 0.3 k/uL (1.0-4.8); Lymphocytes % (A) 5 %; MCH 36.6 pg (25.0-35.0); MCHC 31.5 g/dL (31.0-37.0); MCV 116.1 fL (80.0-100.0); Macrocytosis Marked; Mean Platelet Volume 9.1; Monocytes # (A) 0.4 k/uL (0-1.0); Monocytes % (A) 6 %; Neutrophils # (A) 5.3 k/uL (1.3-7.7); Neutrophils % (A) 88 %; Platelet Count 244 k/uL (150-450); Poikilocytosis Slight; RDW 15.9 % (11.5-15.5)
[2023-10-17 12:48] LABS: African American GFR (CKD) 40 (>60 ml/min/1.73 sqM); Anion Gap 12 mmol/L; Blood Urea Nitrogen 53 mg/dL (9-20); Carbon Dioxide 21 mmol/L (22-30); Chloride 105 mmol/L (98-107); Glucose 128 mg/dL (74-99); Non-African American GFR(CKD) 34 (>60 ml/min/1.73 sqM); Potassium 3.6 mmol/L (3.5-5.1); Sodium 138 mmol/L (137-145)
--- NOTE | 2023-10-17 14:35 | P.PN ---
Subjective Progress Note Date: 10/17/23 Principal diagnosis: Pneumonia. Patient is a 72-year-old white male with past medical history significant for COPD, remote history of pulmonary embolism, coronary artery disease with previous bypass surgery, CVA/TIA, heart failure, chronic kidney disease stage III, chronic leg wounds, among many other comorbidities. Patient is a poor historian. He does not know why he is at the hospital. Upon review of ER documentation upon review of ER documentation, patient was sent in from [facility] after the patient was witnessed to choke on his medications and likely aspirated. He was noted to be in some respiratory distress and hypoxic. EMS transfer the patient to [facility] emergency department yesterday evening, and was placed on a 15 L nonrebreather. Chest x-ray showed low lung volumes with right lower lung airspace opacity concerning for aspiration pneu monitis versus atelectasis. Patient was started on a combination of antibiotics including Zosyn, Flagyl, and azithromycin. CBC drawn in the emergency room: WBC count 6.1, hemoglobin 9.1, hematocrit 28.5, platelets 237. CMP on arrival: Sodium 135, potassium 4.1, chloride 106, serum bicarb 21, BUN 48, creatinine 1.86, glucose 96. Lactic 1.4. LFTs not elevated. NT proBNP 13,400. Urinalysis showing nitrates, large leukocyte, and few bacteria. I am evaluating this patient in the emergency department, room 11. Remains on supplemental oxygen, he is on a 50% Ventimask. He is rhonchorous. He is afebrile. Negative for influenza, RSV, COVID. Remaining vital signs are stable. Progress note dated October 17, 2023. This is a 72-year-old male who is seen in room 380. He was seen in consultation by our team, yesterday. He has a history of COPD, pulmonary embolism, coronary disease with previous bypass surgery, CVA, heart failure, chronic kidney disease, chronic leg wounds, and multiple other medical problems. The patient was apparently at [facility], and had a witnessed choking episode on his medications. The patient apparently was brought to the hospital for further evaluation. The patient was placed on high flow oxygen at 15 L initially. We were asked to see the patient for possible aspiration pneumonia. Clinically, the patient is doing better. He is on saline at 20 cc an hour. He is getting oxygen by nasal cannula at 4 L. Today will go to convert his Solu- Medrol to prednisone 40 mg, and changes budesonide and formoterol to Symbicort 160/4.5, 2 puffs twice a day. He appears not to have any distress. Current labs include a white count 6, hemoglobin 9.5, hematocrit 30.2, platelet count 244,000. Sodium 138, potassium 3.6, chlorides 105, CO2 21, BUN 53, creatinine 1.90. Procalcitonin is mildly elevated at 0.17. Studies for influenza, Legionella, RSV, and coronavirus were all negative. His urine suggest the possibility of a urinary tract infection. There is gram-negative bacilli in his urine. Chest x-ray suggest a right-sided infiltrate, particularly in the lower lobe. Objective - Vital Signs Vital signs: Vital Signs Temp 97.8 F 10/17/23 08:00 Pulse 76 10/17/23 12:31 Resp 20 10/17/23 11:50 BP 119/72 10/17/23 08:00 Pulse Ox 99 10/17/23 09:22 FiO2 35 10/16/23 15:44 Intake & Output 10/16/23 10/17/23 10/17/23 18:59 06:59 18:59 Intake Total 240 118 Output Total 1450 Balance -1210 118 Weight 10 kg 103.873 kg Intake: Oral 240 118 Output: Urine 1450 Other: Voiding Method Incontinent Incontinent Indwelling Catheter Indwelling Catheter - Exam No acute distress, oriented 3. The patient is currently on 4 L of oxygen. There is no evidence of respiratory distress, conversational dyspnea, or use of accessory muscles. HEENT examination is grossly unremarkable. Mucous membranes are moist. No oral lesions. Neck supple. Full range of motion. No adenopathy thyromegaly or neck vein distention. Cardiovascular examination reveals regular rhythm rate. S1-S2 normal. No S3 or S4. No discernible murmur noted. Heart rate 76 bpm. Lungs reveal scattered bilateral rhonchi. No wheezes or crackles. Saturations are adequate. Abdomen soft bowel sounds are heard. No masses or tenderness. Extremities are intact. No cyanosis clubbing or edema. Skin is without rash or lesion. Neurologic examination is brief but nonfocal. - Labs CBC & Chem 7: 10/17/23 10:57 10/17/23 10:57 Labs: Abnormal Lab Results - Last 24 Hours (Table) 10/17/23 10/17/23 Range/Units 10:57 10:57 RBC 2.60 L (4.30-5.90) m/uL Hgb 9.5 L (13.0-17.5) gm/dL Hct 30.2 L (39.0-53.0) % MCV 116.1 H (80.0-100.0) fL MCH 36.6 H (25.0-35.0) pg RDW 15.9 H (11.5-15.5) % Lymphocytes # 0.3 L (1.0-4.8) k/uL Macrocytosis Marked A Carbon Dioxide 21 L (22-30) mmol/L BUN 53 H (9-20) mg/dL Creatinine 1.90 H (0.66-1.25) mg/dL Glucose 128 H (74-99) mg/dL Microbiology - Last 24 Hours (Table) 10/16/23 17:36 Urine Culture - Preliminary Urine,Catheterized Gram Neg Bacilli 10/16/23 17:19 Gram Stain - Preliminary Foot - Right 10/15/23 18:35 Blood Culture - Preliminary Blood 10/15/23 18:50 Blood Culture - Preliminary Blood Assessment and Plan Assessment: Acute hypoxemic respiratory failure, possibly secondary to aspiration and aspiration pneumonitis, patient reportedly had a witnessed aspiration event on h is medications at his [facility]. Acute COPD exacerbation. History of coronary artery disease with previous coronary artery bypass surgery. History of heart failure with preserved ejection fraction. History of peripheral arterial disease. Chronic macrocytic anemia. Chronic kidney disease stage III. Possible UTI. History of alcoholism. History of CVA/TIA. History of hyperlipidemia. Remote history of pulmonary embolism. Bilateral lower extremity edema. Chronic right lower extremity wounds. Former tobacco smoker. Plan: Plan dated October 17, 2023. The patient appears to be relatively comfortable. He is on 4 L. He is not manifesting any signs or symptoms of respiratory distress. The patient was started on empiric antibiotics. His procalcitonin level was mildly elevated. The patient is clinically stable without any significant difficulty breathing, conversational dyspnea, or use of accessory muscles. Chest x-ray does suggest an infiltrate in the right lower lobe. We will continue to follow make recommendations along the way. Please see my orders. The patient's Solu-Medrol is converted to prednisone, and to budesonide and formoterol, is converted to Symbicort. We will continue to follow the patient, and make recommendations along the way. Time with Patient: Less than 30
--- NOTE | 2023-10-17 17:32 | FL ---
EXAMINATION TYPE: FL barium swallow w video DATE OF EXAM: 10/17/2023 CLINICAL HISTORY: 72-year-old male coughing with liquids at the bedside. Assess for aspiration. Dysph agia. TECHNIQUE: Deglutition study is performed utilizing thin liquid barium, honey and nectar thick liqui d barium, barium thick pudding, and barium coated cracker. COMPARISON: None. Total fluoroscopy time: 1 minutes 48 seconds. Total images: None. Real-time fluoroscopy was provided to speech pathology. Total dose: 349.63 mGycm2. FINDINGS: The oral and pharyngeal phases show satisfactory initiation and propagation with all modalities teste d. Normal mastication is seen with solid modalities tested. Transient penetration with thin liquids. Otherwise, there is no evidence of penetration or aspiration with any other modality tested. No sig nificant pharyngeal residue was appreciated. IMPRESSION: Functional swallow. No aspiration. Transient penetration with thin liquids. Please refer to speech therapist notes for further details if necessary.
--- NOTE | 2023-10-17 18:04 | P.PN ---
Progress Note - Text Progress Note Date: 10/17/23 History of Present Illness Patient is a pleasant 72 years old male with past medical history of heart failure, COPD, hypertension, pulmonary embolism, chronic kidney disease stage III, multiple falls, chronic anemia previous coronary artery bypass surgery, hypertension. Patient from care home. At baseline he states he uses 2 to 3 L of oxygen via nasal cannula. Currently he is on 15 L via breathing mask Patient presents because of dyspnea from care home. Also patient complaining from right leg abnormality. There is superficial ulcers with some discharge. Patient denies chest pain or coughing No abdominal pain vomiting or diarrhea. No urinary complaint. No new headache weakness numbness or dizziness. Patient hemodynamically stable other than hypoxia. WBC is normal at 4.2, hemoglobin 10. Creatinine at baseline 1.8 with baseline 1.5-1.8 Other than that BMP and liver enzymes were unremarkable Influenza A and type B, RSV, SARS (coronavirus) are and detected Urine analysis is abnormal suspicious for infection Chest x-ray showing right lower lobe infiltrate suspicious for pneumonia EKG showing sinus rhythm at [address]-T changes with low voltage Patient already started on Zithromax ceftriaxone and IV Solu-Medrol October 17, 2023: Admitted with pneumonia, right lower extremity superficial wounds and cellulitis. Acute hypoxia. Patient eating his meals. Minimal phlegm. Dressing changes right lower extremity. Has a chronic Rooney. Active Medications Acetaminophen (Acetaminophen Tab 325 Mg Tab) 650 mg PO Q6HR PRN PRN Reason: Mild Pain or Fever > 100.5 Hydrocodone Bitart/Acetaminophen (Hydrocodone/Apap 10-325mg 1 Each Tab) 1 each PO Q6HR [facility] Last Admin: 10/17/23 15:25 Dose: 1 each Albuterol/Ipratropium (Ipratropium-Albuterol 3 Ml Neb) 3 ml INHALATION RT-Q4H PRN PRN Reason: shortness of breath Albuterol/Ipratropium (Ipratropium-Albuterol 3 Ml Neb) 3 ml INHALATION RT-QID [facility] Last Admin: 10/17/23 16:00 Dose: 3 ml Allopurinol (Allopurinol 100 Mg Tab) 100 mg PO DAILY [facility] Last Admin: 10/17/23 08:11 Dose: 100 mg Atorvastatin Calcium (Atorvastatin 20 Mg Tab) 20 mg PO HS [facility] Last Admin: 10/16/23 22:06 Dose: 20 mg Budesonide/Formoterol Fumarate (Symbicort 160-4.5 Mcg Inhaler) 2 puff INHALATION RT-BID [facility] Famotidine (Famotidine 20 Mg Tab) 10 mg PO BID [facility] Last Admin: 10/17/23 08:11 Dose: 10 mg Furosemide (Furosemide 10 Mg/Ml 4 Ml Vial) 40 mg IV Q12HR [facility] Last Admin: 10/17/23 08:12 Dose: 40 mg Gabapentin (Gabapentin 100 Mg Cap) 100 mg PO TID [facility] Last Admin: 10/17/23 15:25 Dose: 100 mg Heparin Sodium (Porcine) (Heparin Sodium,Porcine 5,000 Unit/Ml 1 Ml Vial) 5,000 unit SQ Q8HR [facility] Last Admin: 10/17/23 15:25 Dose: 5,000 unit Ceftriaxone Sodium 1 gm/ (Sodium Chloride) 50 mls @ 100 mls/hr IVPB Q24HR [facility]; Protocol Last Admin: 10/17/23 08:11 Dose: 100 mls/hr Lactulose (Lactulose 20 Gm/30 Ml Cup) 20 gm PO Q12H PRN PRN Reason: Constipation Melatonin (Melatonin 5 Mg Tablet) 5 mg PO HS [facility] Last Admin: 10/16/23 22:06 Dose: 5 mg Miscellaneous Information (Pneumonia Protocol Utilized 1 Each Misc) 1 each PO ONCE PRN PRN Reason: Per Protocol Miscellaneous Information (Pneumonia Protocol Utilized 1 Each Misc) 1 each PO ONCE PRN PRN Reason: Per Protocol Naloxone HCl (Naloxone 0.4 Mg/Ml 1 Ml Vial) 0.2 mg IV Q2M PRN PRN Reason: Opioid Reversal Ondansetron HCl (Ondansetron 4 Mg/2 Ml Vial) 4 mg IVP Q8HR PRN PRN Reason: Nausea And Vomiting Petrolatum (Zinc Oxide Paste (Z-Guard) 1 Applic) 1 applic TOPICAL BID [facility]; Protocol Last Admin: 10/17/23 08:12 Dose: Not Given Prednisone (Prednisone 20 Mg Tab) 40 mg PO DAILY [facility] Tamsulosin HCl (Tamsulosin 0.4 Mg Cap.Er.24h) 0.4 mg PO DAILY [facility] Last Admin: 10/17/23 08:11 Dose: 0.4 mg Thiamine HCl (Thiamine 100 Mg Tab) 100 mg PO DAILY [facility] Last Admin: 10/17/23 08:11 Dose: 100 mg Past Medical History Past Medical History: Heart Failure, COPD, Hypertension, Myocardial Infarction ([place]), Pulmonary Embolus ([place]) Additional Past Medical History / Comment(s): Chronic kidney disease stage III, multiple falls, chronic anemia, coronary artery disease, previous bypass surgery, peripheral vascular disease, hypertension, previous history of pulmonary embolism Last Myocardial Infarction Date:: UNSURE History of Any Multi-Drug Resistant Organisms: None Reported Past Surgical History: Coronary Bypass/CABG, Heart Catheterization With Stent Past Anesthesia/Blood Transfusion Reactions: No Reported Reaction Date of Last Stent Placement:: UNSURE Past Psychological History: No Psychological Hx Reported Smoking Status: Current every day smoker Past Alcohol Use History: Daily Past Drug Use History: None Reported - Past Family History Mother History Unknown: Yes On examination: VITAL SIGNS: [98, 67, 18, 92/56, 93% on 6 L] GENERAL APPEARANCE: Laying in bed, awake HEENT: Normal external appearance of nose and ear. Oral cavity normal EYES: Pupils equal. Conjunctiva normal. NECK: JVD not raised. Mass not palpable. RESPIRATORY: Respiratory effort increased. Decreased breath sounds. Some expiratory crackles. CARDIOVASCULAR: First and second sounds normal. No edema. ABDOMEN: Soft. Liver and spleen not palpable. No tenderness. No mass palpable. PSYCHIATRY: Able to answer simple questions EXTREMITIES: Right lower extremity superficial wounds with surrounding cellulitis l. INVESTIGATIONS, reviewed in the clinical context: October 17: White count 6 hemoglobin 9.5 platelets 244 potassium 3.6 BUN 53 creatinine 1.90 Influenza type A, type B, RSV, COVID-19: Not detected Urine antigen Legionella antigen: Negative Chest x-ray film personally reviewed by me-right lower lobe infiltrate Assessment: -Right lower lobe pneumonia suspicious for aspiration pneumonia IV ceftriaxone Acute right leg cellulitis, with superficial ulcers IV ceftriaxone. Local care -Acute on chronic CHF IV Lasix. Ordered 2D echo -Acute on chronic hypoxic respiratory failure: Slow to respond 6 L nasal cannula -Coronary artery disease s/p stent and CABG Add baby aspirin. Lipitor -COPD with mild exacerbation Symbicort with DuoNeb -Chronic kidney disease stage III likely nephrosclerosis -PAD Add baby aspirin. Lipitor -Full code
[2023-10-17] MEDS: ASPIRIN 81 MG PO SCH (20:52)
[2023-10-17] MEDS: SYMBICORT 160-4.5 MCG INHALER INHALATION SCH (22:03)
[2023-10-18] MEDS: predniSONE 20 MG TAB PO SCH (09:43)
--- NOTE | 2023-10-18 13:52 | P.PN ---
Subjective Progress Note Date: 10/18/23 Patient is a 72-year-old white male with past medical history significant for COPD, remote history of pulmonary embolism, coronary artery disease with previous bypass surgery, CVA/TIA, heart failure, chronic kidney disease stage III, chronic leg wounds, among many other comorbidities. Patient is a poor istorian. He does not know why he is at the hospital. Upon review of ER documentation upon review of ER documentation, patient was sent in from [facility] after the patient was witnessed to choke on his medications and likely aspirated. He was noted to be in some respiratory distress and hypoxic. EMS transfer the patient to [facility] emergency department yesterday evening, and was placed on a 15 L nonrebreather. Chest x-ray showed low lung volumes with right lower lung airspace opacity concerning for aspiration pneumonitis versus atelectasis. Patient was started on a combination of antibiotics including Zosyn, Flagyl, and azithromycin. CBC drawn in the emergency room: WBC count 6.1, hemoglobin 9.1, hematocrit 28.5, platelets 237. CMP on arrival: Sodium 135, potassium 4.1, chloride 106, serum bicarb 21, BUN 48, creatinine 1.86, glucose 96. Lactic 1.4. LFTs not elevated. NT proBNP 13,400. Urinalysis showing nitrates, large leukocyte, and few bacteria. I am evaluating this patient in the emergency department, room 11. Remains on supplemental oxygen, he is on a 50% Ventimask. He is rhonchorous. He is afebrile. Negative for influenza, RSV, COVID. Remaining vital signs are stable. Progress note dated October 17, 2023. This is a 72-year-old male who is seen in room 380. He was seen in consultation by our team, yesterday. He has a history of COPD, pulmonary embolism, coronary disease with previous bypass surgery, CVA, heart failure, chronic kidney di sease, chronic leg wounds, and multiple other medical problems. The patient was apparently at [facility], and had a witnessed choking episode on his medications. The patient apparently was brought to the hospital for further evaluation. The patient was placed on high flow oxygen at 15 L initially. We were asked to see the patient for possible aspiration pneumonia. Clinically, the patient is doing better. He is on saline at 20 cc an hour. He is getting oxygen by nasal cannula at 4 L. Today will go to convert his Solu-Medrol to prednisone 40 mg, and changes budesonide and formoterol to Symbicort 160/4.5, 2 puffs twice a day. He appears not to have any distress. Current labs include a white count 6, hemoglobin 9.5, hematocrit 30.2, platelet count 244,000. Sodium 138, potassium 3.6, chlorides 105, CO2 21, BUN 53, creatinine 1.90. Procalcitonin is mildly elevated at 0.17. Studies for influenza, Legionella, RSV, and coronavirus were all negative. His urine suggest the possibility of a urinary tract infection. There is gram-negative bacilli in his urine. Chest x- ray suggest a right-sided infiltrate, particularly in the lower lobe. The patient is seen today October 18, 2023 in follow-up on the selective care unit. He is currently awake and alert in no acute distress. He is maintaining good O2 saturations in the 90s on 4 L/min per nasal cannula. He is afebrile. Hemodynamically stable. Right foot wound culture positive for gram-negative bacilli. Urine culture positive for gram-negative bacilli. He remains on ceftriaxone. Continued on DuoNeb inhalations Symbicort, prednisone taper. He remains on Lasix 40 mg IV every 12 hours. Heparin for DVT prophylaxis. He is currently in a -700 mL balance Objective - Vital Signs Vital signs: Vital Signs Temp 97.6 F 10/18/23 08:00 Pulse 76 10/18/23 11:46 Resp 18 10/18/23 08:00 BP 107/63 10/18/23 08:00 Pulse Ox 95 10/18/23 08:00 FiO2 35 10/16/23 15:44 Intake & Output 10/17/23 10/18/23 10/18/23 18:59 06:59 18:59 Intake Total 236 Output Total 450 500 Balance -214 -500 Weight 103.873 kg 103 kg Intake: Oral 236 Output: Urine 450 500 Other: Voiding Method Incontinent Incontinent Incontinent Indwelling Catheter Indwelling Catheter Indwelling Catheter # Bowel Movements 1 - Exam GENERAL EXAM: Alert, 72-year-old male, on 4 L nasal cannula, comfortable in no apparent distress. HEAD: Normocephalic and atraumatic EYES: Normal reaction of pupils, equal size. NOSE: Clear with pink turbinates. THROAT: No erythema or exudates. NECK: No masses, no JVD. CHEST: No chest wall deformity. Old sternotomy incisional scar LUNGS: Equal air entry with bilateral rhonchi, worse on the right. No conversational dyspnea or accessory muscle use. CVS: S1 and S2 normal with no audible murmur, regular rhythm. No extra heart sounds ABDOMEN: No hepatosplenomegaly, active bowel sounds, no guarding or rigidity. SPINE: No scoliosis or deformity SKIN: No rashes CENTRAL NERVOUS SYSTEM: Alert, only oriented to self. Follows simple commands. No focal deficits, tone is normal in all 4 extremities. EXTREMITIES: Bilateral lower extremity edema, chronic venous stasis changes, with multiple right lower extremity wounds involving the anterior hurley and foot, with purulent discharge. - Labs CBC & Chem 7: 10/17/23 10:57 10/17/23 10:57 Labs: Microbiology - Last 24 Hours (Table) 10/15/23 18:35 Blood Culture - Preliminary Blood 10/15/23 18:50 Blood Culture - Preliminary Blood 10/16/23 17:19 Gram Stain - Preliminary Foot - Right Wound Culture - Preliminary Gram Neg Bacilli 10/16/23 17:36 Urine Culture - Preliminary Urine,Catheterized Gram Neg Bacilli Assessment and Plan Assessment: Acute hypoxemic respiratory failure, possibly secondary to aspiration and aspiration pneumonitis, patient reportedly had a witnessed aspiration event on his medications at his ECF, chest x-ray on arrival to the emergency department showed low lung volumes with right lower lung airspace opacities concerning for aspiration pneumonia versus atelectasis. Procalcitonin 0.17. Acute COPD exacerbation Urinary tract infection secondary to gram-negative bacilli Right foot culture positive for gram-negative bacilli History of coronary artery disease with previous coronary artery bypass surgery History of heart failure with preserved ejection fraction History of peripheral arterial disease Chronic macrocytic anemia Chronic kidney disease stage III Possible UTI History of alcoholism History of CVA/TIA History of hyperlipidemia Remote history of pulmonary embolism, not on any anticoagulation currently Bilateral lower extremity edema Chronic right lower extremity wounds Former tobacco smoker Plan: The patient was seen and evaluated Labs and medications reviewed On ceftriaxone for gram-negative bacilli infection Continue bronchodilators, steroids Heparin for DVT prophylaxis Remains on IV diuretics Currently in a negative balance We will continue to follow I have personally seen and examined the patient, performed the documentation and the assessment and plan as written. Number of minutes spent on the visit: 10.
--- NOTE | 2023-10-18 17:22 | P.PN ---
Progress Note - Text Progress Note Date: 10/18/23 History of Present Illness Patient is a pleasant 72 years old male with past medical history of heart failure, COPD, hypertension, pulmonary embolism, chronic kidney disease stage III, multiple falls, chronic anemia previous coronary artery bypass surgery, hypertension. Patient from [facility]. At baseline he states he uses 2 to 3 L of oxygen via nasal cannula. Currently he is on 15 L via breathing mask Patient presents because of dyspnea from [facility]. Also patient complaining from right leg abnormality. There is superficial ulcers with some discharge. Patient denies chest pain or coughing No abdominal pain vomiting or diarrhea. No urinary complaint. No new headache weakness numbness or dizziness. Patient hemodynamically stable other than hypoxia. WBC is normal at 4.2, hemoglobin 10. Creatinine at baseline 1.8 with baseline 1.5-1.8 Other than that BMP and liver enzymes were unremarkable Influenza A and type B, RSV, SARS (coronavirus) are and detected Urine analysis is abnormal suspicious for infection Chest x-ray showing right lower lobe infiltrate suspicious for pneumonia EKG showing sinus rhythm at [address]-T changes with low voltage Patient already started on Zithromax ceftriaxone and IV Solu-Medrol October 17, 2023: Admitted with pneumonia, right lower extremity superficial wounds and cellulitis. Acute hypoxia. Patient eating his meals. Minimal phlegm. Dressing changes right lower extremity. Has a chronic Rooney. October 18, 2023: Reclining in bed. Breathing better. Had some breakfast. On 4 L nasal cannula. Feels a bit better. Changed over to oral prednisone today. Switch IV Lasix to p.o. Lasix Telemetry that Active Medications Acetaminophen (Acetaminophen Tab 325 Mg Tab) 650 mg PO Q6HR PRN PRN Reason: Mild Pain or Fever > 100.5 Hydrocodone Bitart/Acetaminophen (Hydrocodone/Apap 10-325mg 1 Each Tab) 1 each PO Q6HR [facility] Last Admin: 10/18/23 13:35 Dose: 1 each Albuterol/Ipratropium (Ipratropium-Albuterol 3 Ml Neb) 3 ml INHALATION RT-Q4H PRN PRN Reason: shortness of breath Albuterol/Ipratropium (Ipratropium-Albuterol 3 Ml Neb) 3 ml INHALATION RT-QID [facility] Last Admin: 10/18/23 15:24 Dose: 3 ml Allopurinol (Allopurinol 100 Mg Tab) 100 mg PO DAILY [facility] Last Admin: 10/18/23 09:43 Dose: 100 mg Aspirin (Aspirin 81 Mg) 81 mg PO DAILY [facility] Last Admin: 10/18/23 09:42 Dose: 81 mg Atorvastatin Calcium (Atorvastatin 20 Mg Tab) 20 mg PO HS [facility] Last Admin: 10/17/23 20:52 Dose: 20 mg Budesonide/Formoterol Fumarate (Symbicort 160-4.5 Mcg Inhaler) 2 puff INHALATION RT-BID [facility] Last Admin: 10/18/23 07:44 Dose: 2 puff Famotidine (Famotidine 20 Mg Tab) 10 mg PO BID [facility] Last Admin: 10/18/23 09:42 Dose: 10 mg Furosemide (Furosemide 10 Mg/Ml 4 Ml Vial) 40 mg IV Q12HR [facility] Last Admin: 10/18/23 09:43 Dose: 40 mg Gabapentin (Gabapentin 100 Mg Cap) 100 mg PO TID [facility] Last Admin: 10/18/23 09:42 Dose: 100 mg Heparin Sodium (Porcine) (Heparin Sodium,Porcine 5,000 Unit/Ml 1 Ml Vial) 5,000 unit SQ Q8HR [facility] Last Admin: 10/18/23 09:43 Dose: 5,000 unit Ceftriaxone Sodium 1 gm/ (Sodium Chloride) 50 mls @ 100 mls/hr IVPB Q24HR [facility]; Protocol Last Admin: 10/18/23 09:43 Dose: 100 mls/hr Lactulose (Lactulose 20 Gm/30 Ml Cup) 20 gm PO Q12H PRN PRN Reason: Constipation Melatonin (Melatonin 5 Mg Tablet) 5 mg PO [facility] Last Admin: 10/17/23 20:52 Dose: 5 mg Miscellaneous Information (Pneumonia Protocol Utilized 1 Each Misc) 1 each PO ONCE PRN PRN Reason: Per Protocol Miscellaneous Information (Pneumonia Protocol Utilized 1 Each Misc) 1 each PO ONCE PRN PRN Reason: Per Protocol Naloxone HCl (Naloxone 0.4 Mg/Ml 1 Ml Vial) 0.2 mg IV Q2M PRN PRN Reason: Opioid Reversal Ondansetron HCl (Ondansetron 4 Mg/2 Ml Vial) 4 mg IVP Q8HR PRN PRN Reason: Nausea And Vomiting Petrolatum (Zinc Oxide Paste (Z-Guard) 1 Applic) 1 applic TOPICAL BID [facility]; Protocol Last Admin: 10/18/23 09:44 Dose: 1 applic Prednisone (Prednisone 20 Mg Tab) 40 mg PO DAILY [facility] Last Admin: 10/18/23 09:43 Dose: 40 mg Tamsulosin HCl (Tamsulosin 0.4 Mg Cap.Er.24h) 0.4 mg PO DAILY [facility] Last Admin: 10/18/23 09:43 Dose: 0.4 mg Thiamine HCl (Thiamine 100 Mg Tab) 100 mg PO DAILY [facility] Last Admin: 10/18/23 09:42 Dose: 100 mg Past Medical History Past Medical History: Heart Failure, COPD, Hypertension, Myocardial Infarction ([place]), Pulmonary Embolus ([place]) Additional Past Medical History / Comment(s): Chronic kidney disease stage III, multiple falls, chronic anemia, coronary artery disease, previous bypass surgery, peripheral vascular disease, hypertension, previous history of pulmonary embolism Last Myocardial Infarction Date:: UNSURE History of Any Multi-Drug Resistant Organisms: None Reported Past Surgical History: Coronary Bypass/CABG, Heart Catheterization With Stent Past Anesthesia/Blood Transfusion Reactions: No Reported Reaction Date of Last Stent Placement:: UNSURE Past Psychological History: No Psychological Hx Reported Smoking Status: Current every day smoker Past Alcohol Use History: Daily Past Drug Use History: None Reported - Past Family History Mother History Unknown: Yes On examination: VITAL SIGNS: Afebrile, 89, 16, 104/55, 92% on 4 L GENERAL APPEARANCE: In bed, looking better HEENT: Normal external appearance of nose and ear. Oral cavity normal EYES: Pupils equal. Conjunctiva normal. NECK: JVD not raised. Mass not palpable. RESPIRATORY: Respiratory effort increased. Decreased breath sounds. CARDIOVASCULAR: First and second sounds normal. No edema. ABDOMEN: Soft. Liver and spleen not palpable. No tenderness. No mass palpable. PSYCHIATRY: Able to answer simple questions EXTREMITIES: Right lower extremity superficial wounds with surrounding cellulitis l. INVESTIGATIONS, reviewed in the clinical context: October 16: White count 6 hemoglobin 9.5 platelets 244 potassium 3.6 BUN 53 creatinine 1.90 Influenza type A, type B, RSV, COVID-19: Not detected Urine antigen Legionella antigen: Negative Chest x-ray film personally reviewed by me-right lower lobe infiltrate Assessment: -Right lower lobe pneumonia suspicious for aspiration pneumonia: Better IV ceftriaxone Acute right leg cellulitis, with superficial ulcers IV ceftriaxone. Local care -Acute on chronic CHF IV Lasix-changed to oral Lasix. Ordered 2D echo Fluid restriction -Acute on chronic hypoxic respiratory failure: Improving 4 L nasal cannula -Coronary artery disease s/p stent and CABG aspirin. Lipitor -COPD with mild exacerbation Symbicort with DuoNeb. Prednisone -Chronic kidney disease stage III likely nephrosclerosis -PAD aspirin. Lipitor -Full code Changed to oral Lasix. On oral prednisone. 2D echo. Looking better. X-ray in the a.m.
[2023-10-19] MEDS: FUROSEMIDE 40 MG TAB PO SCH (09:30)
[2023-10-19 11:50] LABS: African American GFR (CKD) 34 (>60 ml/min/1.73 sqM); Anion Gap 6 mmol/L; Blood Urea Nitrogen 56 mg/dL (9-20); Calcium 9.2 mg/dL (8.4-10.2); Carbon Dioxide 26 mmol/L (22-30); Chloride 108 mmol/L (98-107); Glucose 101 mg/dL (74-99); Non-African American GFR(CKD) 29 (>60 ml/min/1.73 sqM); Potassium 3.8 mmol/L (3.5-5.1); Sodium 140 mmol/L (137-145)
--- NOTE | 2023-10-19 12:51 | XR ---
EXAMINATION TYPE: XR chest 2V DATE OF EXAM: 10/19/2023 12:08 PM CLINICAL INDICATION:Male, 72 years old with history of Follow-up CHF; COMPARISON: 10/16/2023 TECHNIQUE: XR chest 2V Frontal and lateral views of the chest. FINDINGS: Lungs/Pleura: There is no evidence of pleural effusion, focal consolidation, or pneumothorax. Pulmonary vascularity: Mild pulmonary vascular congestion. Heart/mediastinum: Cardiomediastinal silhouette is prominent in size. Musculoskeletal: No acute osseous pathology. Midline sternotomy wires are noted. IMPRESSION: Small right pleural effusion. Mild pulmonary vascular congestion.
--- NOTE | 2023-10-19 13:42 | P.PN ---
Subjective Progress Note Date: 10/19/23 Patient is a 72-year-old white male with past medical history significant for COPD, remote history of pulmonary embolism, coronary artery disease with previous bypass surgery, CVA/TIA, heart failure, chronic kidney disease stage III, chronic leg wounds, among many other comorbidities. Patient is a poor istorian. He does not know why he is at the hospital. Upon review of ER documentation upon review of ER documentation, patient was sent in from [facility] after the patient was witnessed to choke on his medications and likely aspirated. He was noted to be in some respiratory distress and hypoxic. EMS transfer the patient to [facility] emergency department yesterday evening, and was placed on a 15 L nonrebreather. Chest x-ray showed low lung volumes with right lower lung airspace opacity concerning for aspiration pneumonitis versus atelectasis. Patient was started on a combination of antibiotics including Zosyn, Flagyl, and azithromycin. CBC drawn in the emergency room: WBC count 6.1, hemoglobin 9.1, hematocrit 28.5, platelets 237. CMP on arrival: Sodium 135, potassium 4.1, chloride 106, serum bicarb 21, BUN 48, creatinine 1.86, glucose 96. Lactic 1.4. LFTs not elevated. NT proBNP 13,400. Urinalysis showing nitrates, large leukocyte, and few bacteria. I am evaluating this patient in the emergency department, room 11. Remains on supplemental oxygen, he is on a 50% Ventimask. He is rhonchorous. He is afebrile. Negative for influenza, RSV, COVID. Remaining vital signs are stable. Progress note dated October 17, 2023. This is a 72-year-old male who is seen in room 380. He was seen in consultation by our team, yesterday. He has a history of COPD, pulmonary embolism, coronary disease with previous bypass surgery, CVA, heart failure, chronic kidney di sease, chronic leg wounds, and multiple other medical problems. The patient was apparently at [facility], and had a witnessed choking episode on his medications. The patient apparently was brought to the hospital for further evaluation. The patient was placed on high flow oxygen at 15 L initially. We were asked to see the patient for possible aspiration pneumonia. Clinically, the patient is doing better. He is on saline at 20 cc an hour. He is getting oxygen by nasal cannula at 4 L. Today will go to convert his Solu-Medrol to prednisone 40 mg, and changes budesonide and formoterol to Symbicort 160/4.5, 2 puffs twice a day. He appears not to have any distress. Current labs include a white count 6, hemoglobin 9.5, hematocrit 30.2, platelet count 244,000. Sodium 138, potassium 3.6, chlorides 105, CO2 21, BUN 53, creatinine 1.90. Procalcitonin is mildly elevated at 0.17. Studies for influenza, Legionella, RSV, and coronavirus were all negative. His urine suggest the possibility of a urinary tract infection. There is gram-negative bacilli in his urine. Chest x- ray suggest a right-sided infiltrate, particularly in the lower lobe. The patient is seen today October 18, 2023 in follow-up on the selective care unit. He is currently awake and alert in no acute distress. He is maintaining good O2 saturations in the 90s on 4 L/min per nasal cannula. He is afebrile. Hemodynamically stable. Right foot wound culture positive for gram-negative bacilli. Urine culture positive for gram-negative bacilli. He remains on ceftriaxone. Continued on DuoNeb inhalations Symbicort, prednisone taper. He remains on Lasix 40 mg IV every 12 hours. Heparin for DVT prophylaxis. He is currently in a -700 mL balance. The patient is seen today October 19, 2023 in follow-up on the selective care unit. He remains resting comfortably in bed. Awake and alert in no acute distress. He is maintaining O2 saturations in the 90s on 5 L/min per nasal cannula. No IV fluids. He is continued on DuoNeb inhalations, Symbicort, prednisone taper. Remains on oral diuretics. Antibiotics in the form of ceftriaxone for his E. coli and pseudomonal aeruginosa UTI and right foot infection. The reports are showing E. coli is ESBL and resistant to ceftriaxone. Heparin for DVT prophyl axis. Chest x-ray reveals a small right pleural effusion. Some mild pulmonary vascular congestion. Sodium 140. Potassium 3.8. Bicarb 26. BUN 56. Creatinine 2.17. Glucose 101. He is currently in a positive balance. Objective - Vital Signs Vital signs: Vital Signs Temp 96.9 F L 10/19/23 12:30 Pulse 73 10/19/23 12:30 Resp 16 10/19/23 12:30 BP 119/69 10/19/23 12:30 Pulse Ox 100 10/19/23 12:30 FiO2 35 10/16/23 15:44 Intake & Output 10/18/23 10/19/23 10/19/23 18:59 06:59 18:59 Intake Total 776 168 Output Total 450 200 Balance 326 -200 168 Weight 101 kg Intake: Intake, IV Titration 50 Amount cefTRIAXone 1 gm In 50 Sodium Chloride 0.9% 50 ml @ 100 mls/hr IVPB Q24HR [facility] Rx#:[id number] Oral 776 118 Output: Urine 450 200 Other: Voiding Method Incontinent Incontinent Incontinent Indwelling Catheter Indwelling Catheter Indwelling Catheter # Bowel Movements 1 - Exam GENERAL EXAM: Alert, pleasant 72-year-old male, resting in bed on 5 L nasal cannula, comfortable in no apparent distress. HEAD: Normocephalic and atraumatic EYES: Normal reaction of pupils, equal size. NOSE: Clear with pink turbinates. THROAT: No erythema or exudates. NECK: No masses, no JVD. CHEST: No chest wall deformity. Old sternotomy incisional scar LUNGS: Equal air entry with bilateral rhonchi, worse on the right. No conversational dyspnea or accessory muscle use. CVS: S1 and S2 normal with no audible murmur, regular rhythm. No extra heart sounds ABDOMEN: No hepatosplenomegaly, active bowel sounds, no guarding or rigidity. SPINE: No scoliosis or deformity SKIN: No rashes CENTRAL NERVOUS SYSTEM: Alert, only oriented to self. Follows simple commands. No focal deficits, tone is normal in all 4 extremities. EXTREMITIES: Bilateral lower extremity edema, chronic venous stasis changes, with multiple right lower extremity wounds involving the anterior hurley and foot, with purulent discharge. - Labs CBC & Chem 7: 10/17/23 10:57 10/19/23 11:11 Labs: Abnormal Lab Results - Last 24 Hours (Table) 10/19/23 Range/Units 11:11 Chloride 108 H (98-107) mmol/L BUN 56 H (9-20) mg/dL Creatinine 2.17 H (0.66-1.25) mg/dL Glucose 101 H (74-99) mg/dL Microbiology - Last 24 Hours (Table) 10/15/23 18:35 Blood Culture - Preliminary Blood 10/15/23 18:50 Blood Culture - Preliminary Blood 10/16/23 17:19 Anaerobic Culture - Preliminary Foot - Right 10/16/23 17:19 Gram Stain - Final Foot - Right Wound Culture - Final Escherichia coli Pseudomonas aeruginosa 10/16/23 17:36 Urine Culture - Final Urine,Catheterized Escherichia coli Pseudomonas aeruginosa Assessment and Plan Assessment: Acute hypoxemic respiratory failure, possibly secondary to aspiration and aspiration pneumonitis, patient reportedly had a witnessed aspiration event on his medications at his [facility], chest x-ray on arrival to the emergency department showed low lung volumes with right lower lung airspace opacities concerning for aspiration pneumonia versus atelectasis. Procalcitonin 0.17. Acute COPD exacerbation Urinary tract infection secondary to E. coli ESBL and Pseudomonas aeruginosa Right foot culture positive for E. coli ESBL and Pseudomonas aeruginosa Acute kidney injury secondary to diuretics, UTI History of coronary artery disease with previous coronary artery bypass surgery History of heart failure with preserved ejection fraction, follow-up echocardiogram pending History of peripheral arterial disease Chronic macrocytic anemia Chronic kidney disease stage III Possible UTI History of alcoholism History of CVA/TIA History of hyperlipidemia Remote history of pulmonary embolism, not on any anticoagulation currently Bilateral lower extremity edema Chronic right lower extremity wounds Former tobacco smoker Plan: The patient was seen and evaluated Microbiology, labs and medications reviewed ESBL E. coli in wound and urine Discontinue ceftriaxone, add Zosyn Continue bronchodilators, steroids Heparin for DVT prophylaxis Remains on diuretics We will continue to follow I have personally seen and examined the patient, performed the documentation and the assessment and plan as written. Number of minutes spent on the visit: 10.
--- NOTE | 2023-10-19 14:45 | US ---
EXAMINATION TYPE: US chest DATE OF EXAM: 10/19/2023 Exam done portable COMPARISON: NONE CLINICAL INDICATION: Male, 72 years old with history of Marking for thoracentesis/right side; TECHNIQUE: Targeted ultrasound of the posterior lower right hemithorax EXAM MEASUREMENTS: Right Pleural Effusion pocket size: 9.5 cm Right skin surface to fluid distance: 3.0 cm Right side marked for possible thoracentesis outside the dept. Pulmonologists are able to review the images in the patient?s EMR. IMPRESSIONS: Moderate right pleural fusion.
[2023-10-19] MEDS: PIPERACILLIN-TAZOBACTAM 3.375 GM in SODIUM CHLORIDE 0.9% 100 ML IVPB SCH (16:35)
--- NOTE | 2023-10-19 16:40 | CDI ---
Documentation Clarification Form Date: 10/19/2023 04:17:52 PM From: Sachi Correia Phone: [phone] Admit Date: 10/15/2023 06:26:00 PM Patient Name: Kraig Dumont Visit Number: [id number] Discharge Date: ATTENTION: The Clinical Documentation Specialists (CDI) and [facility] Coding Staff appreciate your assistance in clarifying documentation. Please respond to the clarification below the line at the bottom and electronically sign. The CDI & [facility] Coding staff will review the response and follow-up if needed. Please note: Queries are made part of the Legal Health Record. If you have any questions, please contact the author of this message via ITS. Dr. Crow Tam UTI is documented Pulmonary note, 10/15. Additional clarification regarding this diagnosis is requested. History/Risk Factors: 72-year-old male presents to the ED from [facility] for dyspnea. Medical history: Heart Failure, Chronic respiratory failure, CAD, HTN and COPD. 10/15, HP Clinical Indicators: ED Note, 10/14: Urinalysis positive for UTI and Kovacs catheter was swapped out. Pulmonary note 10/17: Urinary tract infection secondary to gram negative bacilli Vital Signs: B/P 93/77; HR 86; Temp 98.1F Oral; RR 26; SpO2 77% 5L nc WBC, 10/14: 6.1 Urinalysis, 10/14: Urine blood large, Nitrate positive, Leukocyte Esterase Large, Rbc 42, Wbc 165, Hyaline casts 5. Urine Culture, 10/15: Escherichia coli Pseudomonas aeruginosa Treatment: 10/15 Zosyn 3.375gm IVPB x 2; 10/15 Azithromycin 500mg IVPB X 2 bags; 10/15 10/18 Ceftriaxone ivpb Q24H; 10/18 Zosyn 3.375gm IVPB Q8H Please clarify if there is an additional diagnosis associated with the UTI: [ ] UTI only [ + ] UTI secondary to kovacs catheter [ ] Other, please specify [ ] Unable to determine (Template Last Revised: July 2020) MTDD
--- NOTE | 2023-10-19 17:26 | CA ---
Transthoracic Echo Report Name: Kraig Dumont Age: 72 Gender: M : 1950 Exam Date: 10/19/2023 09:36 Exam Location: [facility] Ht (in): 71 Wt (lb): 227 Ordering Physician: Crow Tam MD Attending/Referring Phys: Eligibility Specialist Tatiana Sheth RDCS Procedure CPT: Indications: chf Cardiac Hx: Technical Quality: Poor Contrast 1: Definity Total Dose (mL): 2 Contrast 2: Total Dose (mL): MEASUREMENTS (Male / Female) Normal Values 2D ECHO LV Diastolic Diameter PLAX 4.2 cm 4.2 - 5.9 / 3.9 - 5.3 cm LV Systolic Diameter PLAX 3.2 cm IVS Diastolic Thickness 1.4 cm 0.6 - 1.0 / 0.6 - 0.9 cm LVPW Diastolic Thickness 1.3 cm 0.6 - 1.0 / 0.6 - 0.9 cm LV Relative Wall Thickness 0.6 RV Internal Dim ED PLAX 3.7 cm LA Systolic Diameter LX 5.0 cm 3.0 - 4.0 / 2.7 - 3.8 cm LA Volume 58.4 cm??? 18 - 58 / 22 - 52 cm??? LA Volume Index 25.4 cm???/m??? 16 - 28 cm???/m??? M-MODE Aortic Root Diameter MM 3.4 cm LA Systolic Diameter MM 4.5 cm LA Ao Ratio MM 1.3 AV Cusp Separation MM 1.6 cm DOPPLER AV Peak Velocity 162.2 cm/s AV Peak Gradient 10.5 mmHg AV Mean Velocity 108.6 cm/s AV Mean Gradient 5.6 mmHg AV Velocity Time Integral 38.1 cm LVOT Peak Velocity 107.1 cm/s LVOT Peak Gradient 4.6 mmHg LVOT Velocity Time Integral 31.2 cm MV Area PHT 3.1 cm??? Mitral E Point Velocity 115.6 cm/s Mitral A Point Velocity 88.7 cm/s Mitral E to A Ratio 1.3 MV Deceleration Time 245.8 ms TR Peak Velocity 346.4 cm/s TR Peak Gradient 48.0 mmHg Right Ventricular Systolic Press 66.8 mmHg FINDINGS Left Ventricle Left ventricular ejection fraction is estimated at 55-60%. Mildly increased septal wall thickness. No obvious regional wall motion abnormalities. Left ventricular cavity size normal. Right Ventricle Severe right ventricular dilatation. Severely reduced right ventricular global systolic function. Severe pulmonary hypertension. Right ventricular systolic pressure estimated at 66mmhg. Right Atrium Severe right atrial dilatation. Left Atrium Moderately increased left atrial diameter. Mildly increased left atrial area. Mitral Valve Structurally normal mitral valve. Mild mitral regurgitation. No mitral stenosis. Aortic Valve Trileaflet aortic valve. No aortic valve stenosis or regurgitation. Diffuse thickening (sclerosis) of the aortic valve cusps without reduced excursion. Tricuspid Valve Structurally normal tricuspid valve. Mild tricuspid regurgitation. Pulmonic Valve Structurally normal pulmonic valve. Trace pulmonic regurgitation. No pulmonic stenosis. Pericardium No pericardial or pleural effusion. Aorta Normal size aortic root and proximal ascending aorta. CONCLUSIONS Normal LV function Severe pulmonary hypertension Previewed by: Dr. César Wu MD (Electronically Signed) Final Date: 19 October 2023 17:25
--- NOTE | 2023-10-19 19:03 | P.PN ---
Progress Note - Text Progress Note Date: 10/19/23 History of Present Illness Patient is a pleasant 72 years old male with past medical history of heart failure, COPD, hypertension, pulmonary embolism, chronic kidney disease stage III, multiple falls, chronic anemia previous coronary artery bypass surgery, hypertension. Patient from shelter. At baseline he states he uses 2 to 3 L of oxygen via nasal cannula. Currently he is on 15 L via breathing mask Patient presents because of dyspnea from shelter. Also patient complaining from right leg abnormality. There is superficial ulcers with some discharge. Patient denies chest pain or coughing No abdominal pain vomiting or diarrhea. No urinary complaint. No new headache weakness numbness or dizziness. Patient hemodynamically stable other than hypoxia. WBC is normal at 4.2, hemoglobin 10. Creatinine at baseline 1.8 with baseline 1.5-1.8 Other than that BMP and liver enzymes were unremarkable Influenza A and type B, RSV, SARS (coronavirus) are and detected Urine analysis is abnormal suspicious for infection Chest x-ray showing right lower lobe infiltrate suspicious for pneumonia EKG showing sinus rhythm at [address]-T changes with low voltage Patient already started on Zithromax ceftriaxone and IV Solu-Medrol October 17, 2023: Admitted with pneumonia, right lower extremity superficial wounds and cellulitis. Acute hypoxia. Patient eating his meals. Minimal phlegm. Dressing changes right lower extremity. Has a chronic Rooney. October 18, 2023: Reclining in bed. Breathing better. Had some breakfast. On 4 L nasal cannula. Feels a bit better. Changed over to oral prednisone today. Switch IV Lasix to p.o. Lasix October 18: Breathing okay. Chest x-ray showing significant right-sided pleural effusion. Chest ultrasound: Marking for paracentesis done. Texted Dr. Joshua for the same.-Thoracentesis make a difference to his oxygenation status Active Medications Acetaminophen (Acetaminophen Tab 325 Mg Tab) 650 mg PO Q6HR PRN PRN Reason: Mild Pain or Fever > 100.5 Hydrocodone Bitart/Acetaminophen (Hydrocodone/Apap 10-325mg 1 Each Tab) 1 each PO Q6HR [facility] Last Admin: 10/19/23 17:25 Dose: 1 each Albuterol/Ipratropium (Ipratropium-Albuterol 3 Ml Neb) 3 ml INHALATION RT-Q4H PRN PRN Reason: shortness of breath Albuterol/Ipratropium (Ipratropium-Albuterol 3 Ml Neb) 3 ml INHALATION RT-QID [facility] Last Admin: 10/19/23 15:21 Dose: 3 ml Allopurinol (Allopurinol 100 Mg Tab) 100 mg PO DAILY [facility] Last Admin: 10/19/23 09:30 Dose: 100 mg Aspirin (Aspirin 81 Mg) 81 mg PO DAILY [facility] Last Admin: 10/19/23 09:30 Dose: 81 mg Atorvastatin Calcium (Atorvastatin 20 Mg Tab) 20 mg PO HS [facility] Last Admin: 10/18/23 22:07 Dose: 20 mg Budesonide/Formoterol Fumarate (Symbicort 160-4.5 Mcg Inhaler) 2 puff INHALATION RT-BID [facility] Last Admin: 10/19/23 07:34 Dose: 2 puff Famotidine (Famotidine 20 Mg Tab) 10 mg PO BID [facility] Last Admin: 10/19/23 09:30 Dose: 10 mg Furosemide (Furosemide 40 Mg Tab) 60 mg PO DAILY [facility] Last Admin: 10/19/23 09:30 Dose: 60 mg Gabapentin (Gabapentin 100 Mg Cap) 100 mg PO TID [facility] Last Admin: 10/19/23 16:35 Dose: 100 mg Heparin Sodium (Porcine) (Heparin Sodium,Porcine 5,000 Unit/Ml 1 Ml Vial) 5,000 unit SQ Q8HR [facility] Last Admin: 10/19/23 16:35 Dose: 5,000 unit Piperacillin Sod/Tazobactam (Sod 3.375 gm/ Sodium Chloride) 100 mls @ 25 mls/hr IVPB Q8HR [facility]; Protocol Last Admin: 10/19/23 16:35 Dose: 25 mls/hr Lactulose (Lactulose 20 Gm/30 Ml Cup) 20 gm PO Q12H PRN PRN Reason: Constipation Melatonin (Melatonin 5 Mg Tablet) 5 mg PO [facility] Last Admin: 10/18/23 22:07 Dose: 5 mg Miscellaneous Information (Pneumonia Protocol Utilized 1 Each Misc) 1 each PO ONCE PRN PRN Reason: Per Protocol Miscellaneous Information (Pneumonia Protocol Utilized 1 Each Misc) 1 each PO ONCE PRN PRN Reason: Per Protocol Naloxone HCl (Naloxone 0.4 Mg/Ml 1 Ml Vial) 0.2 mg IV Q2M PRN PRN Reason: Opioid Reversal Ondansetron HCl (Ondansetron 4 Mg/2 Ml Vial) 4 mg IVP Q8HR PRN PRN Reason: Nausea And Vomiting Petrolatum (Zinc Oxide Paste (Z-Guard) 1 Applic) 1 applic TOPICAL BID [facility]; Protocol Last Admin: 10/19/23 09:34 Dose: 1 applic Prednisone (Prednisone 20 Mg Tab) 40 mg PO DAILY [facility] Last Admin: 10/19/23 09:31 Dose: 40 mg Tamsulosin HCl (Tamsulosin 0.4 Mg Cap.Er.24h) 0.4 mg PO DAILY [facility] Last Admin: 10/19/23 09:30 Dose: 0.4 mg Thiamine HCl (Thiamine 100 Mg Tab) 100 mg PO DAILY [facility] Last Admin: 10/19/23 09:30 Dose: 100 mg Past Medical History Past Medical History: Heart Failure, COPD, Hypertension, Myocardial Infarction ([place]), Pulmonary Embolus (PE) Additional Past Medical History / Comment(s): Chronic kidney disease stage III, multiple falls, chronic anemia, coronary artery disease, previous bypass surgery, peripheral vascular disease, hypertension, previous history of pulmonary embolism Last Myocardial Infarction Date:: UNSURE History of Any Multi-Drug Resistant Organisms: None Reported Past Surgical History: Coronary Bypass/CABG, Heart Catheterization With Stent Past Anesthesia/Blood Transfusion Reactions: No Reported Reaction Date of Last Stent Placement:: UNSURE Past Psychological History: No Psychological Hx Reported Smoking Status: Current every day smoker Past Alcohol Use History: Daily Past Drug Use History: None Reported - Past Family History Mother History Unknown: Yes On examination: VITAL SIGNS: 96.9, 73, 16, 119/69, 100% on 5 L GENERAL APPEARANCE: Regular in bed HEENT: Normal external appearance of nose and ear. Oral cavity normal EYES: Pupils equal. Conjunctiva normal. NECK: JVD not raised. Mass not palpable. RESPIRATORY: Respiratory effort increased. Decreased breath sounds, especially in the right base. CARDIOVASCULAR: First and second sounds normal. No edema. ABDOMEN: Soft. Liver and spleen not palpable. No tenderness. No mass palpable. PSYCHIATRY: Able to answer simple questions EXTREMITIES: Right lower extremity superficial wounds with surrounding cellulitis l. INVESTIGATIONS, reviewed in the clinical context: 2D echocardiogram [October 19, 2023] EF 55 to 60%. Severe pulmonary hypertension. Severe right ventricle and atrial dilatation. October 18: Sodium 140 potassium 3.8 BUN 56 creatinine 2.17 October 16: White count 6 hemoglobin 9.5 platelets 244 potassium 3.6 BUN 53 creatinine 1.90 Influenza type A, type B, RSV, COVID-19: Not detected Urine antigen Legionella antigen: Negative Chest x-ray film personally reviewed by me-right lower lobe infiltrate Assessment: -Right lower lobe pneumonia suspicious for aspiration pneumonia: Better IV ceftriaxone Acute right leg cellulitis, with superficial ulcers IV ceftriaxone. Local care -Acute on chronic CHF, from diastolic dysfunction EF 55 to 60% IV Lasix-changed to oral Lasix. Fluid restriction -Large right pleural effusion suspect from CHF, causing hypoxia Ultrasound chest marking done for thoracentesis. Pulmonary Dr. Joshua informed -Severe secondary pulmonary hypertension -Acute kidney injury ATN likely cardiorenal Follow renal function closely -Acute on chronic hypoxic respiratory failure: Improving 4 L nasal cannula -Coronary artery disease s/p stent and CABG aspirin. Lipitor -Acute UTI secondary to Rooney catheter cultures positive for E. coli/Pseudomonas IV Zosyn -COPD with mild exacerbation Symbicort with DuoNeb. Prednisone -Chronic kidney disease stage III likely nephrosclerosis -PAD aspirin. Lipitor -Full code Chest ultrasound marking done for thoracentesis. Await input from Dr. JOSHUA. Hold Lasix in the morning. Order VQ scan to rule out chronic PE, and consideration of severe secondary pulm hypertension
[2023-10-20 08:59] LABS: African American GFR (CKD) 35 (>60 ml/min/1.73 sqM); Anion Gap 4 mmol/L; Blood Urea Nitrogen 57 mg/dL (9-20); Calcium 9.5 mg/dL (8.4-10.2); Carbon Dioxide 27 mmol/L (22-30); Chloride 108 mmol/L (98-107); Glucose 102 mg/dL (74-99); Non-African American GFR(CKD) 31 (>60 ml/min/1.73 sqM); Potassium 4.3 mmol/L (3.5-5.1); Sodium 139 mmol/L (137-145)
--- NOTE | 2023-10-20 09:39 | NM ---
EXAMINATION TYPE: NM pul vent and perfuse DATE OF EXAM: 10/20/2023 CLINICAL INDICATION: Male, 72 years old with history of Evaluate for chronic PE; COMPARISON: 10/19/2023 TECHNIQUE: Utilizing inhalation of 70.0 mCi Tc 99m DTPA aerosol and intravenous injection of 5.1 mCi of Tc 99m MAA, ventilation and perfusion images are acquired post injection in multiple projections. FINDINGS: Normal radiotracer distribution is noted in the lungs. There is no evidence of mismatched defects. IMPRESSION: No evidence for pulmonary embolus.
--- NOTE | 2023-10-20 12:43 | P.PN ---
Subjective Progress Note Date: 10/20/23 Patient is a 72-year-old white male with past medical history significant for COPD, remote history of pulmonary embolism, coronary artery disease with previous bypass surgery, CVA/TIA, heart failure, chronic kidney disease stage III, chronic leg wounds, among many other comorbidities. Patient is a poor istorian. He does not know why he is at the hospital. Upon review of ER documentation upon review of ER documentation, patient was sent in from [facility] after the patient was witnessed to choke on his medications and likely aspirated. He was noted to be in some respiratory distress and hypoxic. EMS transfer the patient to [facility] emergency department yesterday evening, and was placed on a 15 L nonrebreather. Chest x-ray showed low lung volumes with right lower lung airspace opacity concerning for aspiration pneumonitis versus atelectasis. Patient was started on a combination of antibiotics including Zosyn, Flagyl, and azithromycin. CBC drawn in the emergency room: WBC count 6.1, hemoglobin 9.1, hematocrit 28.5, platelets 237. CMP on arrival: Sodium 135, potassium 4.1, chloride 106, serum bicarb 21, BUN 48, creatinine 1.86, glucose 96. Lactic 1.4. LFTs not elevated. NT proBNP 13,400. Urinalysis showing nitrates, large leukocyte, and few bacteria. I am evaluating this patient in the emergency department, room 11. Remains on supplemental oxygen, he is on a 50% Ventimask. He is rhonchorous. He is afebrile. Negative for influenza, RSV, COVID. Remaining vital signs are stable. Progress note dated October 17, 2023. This is a 72-year-old male who is seen in room 380. He was seen in consultation by our team, yesterday. He has a history of COPD, pulmonary embolism, coronary disease with previous bypass surgery, CVA, heart failure, chronic kidney di sease, chronic leg wounds, and multiple other medical problems. The patient was apparently at [facility], and had a witnessed choking episode on his medications. The patient apparently was brought to the hospital for further evaluation. The patient was placed on high flow oxygen at 15 L initially. We were asked to see the patient for possible aspiration pneumonia. Clinically, the patient is doing better. He is on saline at 20 cc an hour. He is getting oxygen by nasal cannula at 4 L. Today will go to convert his Solu-Medrol to prednisone 40 mg, and changes budesonide and formoterol to Symbicort 160/4.5, 2 puffs twice a day. He appears not to have any distress. Current labs include a white count 6, hemoglobin 9.5, hematocrit 30.2, platelet count 244,000. Sodium 138, potassium 3.6, chlorides 105, CO2 21, BUN 53, creatinine 1.90. Procalcitonin is mildly elevated at 0.17. Studies for influenza, Legionella, RSV, and coronavirus were all negative. His urine suggest the possibility of a urinary tract infection. There is gram-negative bacilli in his urine. Chest x- ray suggest a right-sided infiltrate, particularly in the lower lobe. The patient is seen today October 18, 2023 in follow-up on the selective care unit. He is currently awake and alert in no acute distress. He is maintaining good O2 saturations in the 90s on 4 L/min per nasal cannula. He is afebrile. Hemodynamically stable. Right foot wound culture positive for gram-negative bacilli. Urine culture positive for gram-negative bacilli. He remains on ceftriaxone. Continued on DuoNeb inhalations Symbicort, prednisone taper. He remains on Lasix 40 mg IV every 12 hours. Heparin for DVT prophylaxis. He is currently in a -700 mL balance. The patient is seen today October 19, 2023 in follow-up on the selective care unit. He remains resting comfortably in bed. Awake and alert in no acute distress. He is maintaining O2 saturations in the 90s on 5 L/min per nasal cannula. No IV fluids. He is continued on DuoNeb inhalations, Symbicort, prednisone taper. Remains on oral diuretics. Antibiotics in the form of ceftriaxone for his E. coli and pseudomonal aeruginosa UTI and right foot infection. The reports are showing E. coli is ESBL and resistant to ceftriaxone. Heparin for DVT prophyl axis. Chest x-ray reveals a small right pleural effusion. Some mild pulmonary vascular congestion. Sodium 140. Potassium 3.8. Bicarb 26. BUN 56. Creatinine 2.17. Glucose 101. He is currently in a positive balance. The patient is seen today October 20, 2023 in follow-up on the selective care unit. He is awake and alert in no acute distress. Resting comfortably in bed. He is maintaining O2 saturation in the 90s on 5 L/min per nasal cannula. He is continue on DuoNeb ventilations, Symbicort, prednisone taper. Heparin for DVT prophylaxis. He remains on Zosyn. VQ scan revealed no evidence for pulmonary embolus. Urine culture was positive for E. coli and Pseudomonas as well as the right foot culture. Sodium 139. Potassium 4.3. Bicarb 27. BUN 57. Creatinine 2.10. Objective - Vital Signs Vital signs: Vital Signs Temp 97.4 F L 10/20/23 08:09 Pulse 71 10/20/23 12:00 Resp 16 10/20/23 12:00 BP 136/74 10/20/23 12:00 Pulse Ox 97 10/20/23 12:00 FiO2 35 10/16/23 15:44 Intake & Output 10/19/23 10/20/23 10/20/23 18:59 06:59 18:59 Intake Total 386 244 Output Total 800 475 Balance 386 -800 -231 Intake: Intake, IV Titration 150 Amount Piperacillin-Tazobactam 3 100 .375 gm In Sodium Chloride 0.9% 100 ml @ 25 mls/hr IVPB Q8HR [facility] Rx# :[id number] cefTRIAXone 1 gm In 50 Sodium Chloride 0.9% 50 ml @ 100 mls/hr IVPB Q24HR [facility] Rx#:[id number] Oral 236 244 Output: Urine 800 475 Other: Voiding Method Incontinent Incontinent Incontinent Indwelling Catheter Indwelling Catheter Indwelling Catheter - Exam GENERAL EXAM: Alert, 72-year-old male, on 5 L nasal cannula, comfortable in no apparent distress. HEAD: Normocephalic and atraumatic EYES: Normal reaction of pupils, equal size. NOSE: Clear with pink turbinates. THROAT: No erythema or exudates. NECK: No masses, no JVD. CHEST: No chest wall deformity. Old sternotomy incisional scar LUNGS: Equal air entry with bilateral rhonchi, worse on the right. No conversational dyspnea or accessory muscle use. CVS: S1 and S2 normal with no audible murmur, regular rhythm. No extra heart sounds ABDOMEN: No hepatosplenomegaly, active bowel sounds, no guarding or rigidity. SPINE: No scoliosis or deformity SKIN: No rashes CENTRAL NERVOUS SYSTEM: Alert, only oriented to self. Follows simple commands. No focal deficits, tone is normal in all 4 extremities. EXTREMITIES: Bilateral lower extremity edema, chronic venous stasis changes, with multiple right lower extremity wounds involving the anterior hurley and foot, with purulent discharge. - Labs CBC & Chem 7: 10/17/23 10:57 10/20/23 08:26 Labs: Abnormal Lab Results - Last 24 Hours (Table) 10/20/23 Range/Units 08:26 Chloride 108 H (98-107) mmol/L BUN 57 H (9-20) mg/dL Creatinine 2.10 H (0.66-1.25) mg/dL Glucose 102 H (74-99) mg/dL Assessment and Plan Assessment: Acute hypoxemic respiratory failure, possibly secondary to aspiration and aspiration pneumonitis, patient reportedly had a witnessed aspiration event on his medications at his [facility], chest x-ray on arrival to the emergency department showed low lung volumes with right lower lung airspace opacities concerning for aspiration pneumonia versus atelectasis. Procalcitonin 0.17. VQ scan ruled out pulmonary embolism Acute COPD exacerbation Urinary tract infection secondary to E. coli ESBL and Pseudomonas aeruginosa Right foot culture positive for E. coli ESBL and Pseudomonas aeruginosa Acute kidney injury secondary to diuretics, UTI History of coronary artery disease with previous coronary artery bypass surgery History of heart failure with preserved ejection fraction, follow-up echocardiogram pending History of peripheral arterial disease Chronic macrocytic anemia Chronic kidney disease stage III Possible UTI History of alcoholism History of CVA/TIA History of hyperlipidemia Remote history of pulmonary embolism, not on any anticoagulation currently Bilateral lower extremity edema Chronic right lower extremity wounds Former tobacco smoker Plan: The patient was seen and evaluated Labs and medications reviewed VQ scan ruled out pulmonary embolus Continue Zosyn Continue bronchodilators, steroids Heparin for DVT prophylaxis Remains on diuretics We will continue to follow I have personally seen and examined the patient, performed the documentation and the assessment and plan as written. Number of minutes spent on the visit: 10.
--- NOTE | 2023-10-20 19:26 | P.PN ---
Progress Note - Text Progress Note Date: 10/20/23 History of Present Illness Patient is a pleasant 72 years old male with past medical history of heart failure, COPD, hypertension, pulmonary embolism, chronic kidney disease stage III, multiple falls, chronic anemia previous coronary artery bypass surgery, hypertension. Patient from [facility]. At baseline he states he uses 2 to 3 L of oxygen via nasal cannula. Currently he is on 15 L via breathing mask Patient presents because of dyspnea from [facility]. Also patient complaining from right leg abnormality. There is superficial ulcers with some discharge. Patient denies chest pain or coughing No abdominal pain vomiting or diarrhea. No urinary complaint. No new headache weakness numbness or dizziness. Patient hemodynamically stable other than hypoxia. WBC is normal at 4.2, hemoglobin 10. Creatinine at baseline 1.8 with baseline 1.5-1.8 Other than that BMP and liver enzymes were unremarkable Influenza A and type B, RSV, SARS (coronavirus) are and detected Urine analysis is abnormal suspicious for infection Chest x-ray showing right lower lobe infiltrate suspicious for pneumonia EKG showing sinus rhythm at [address]-T changes with low voltage Patient already started on Zithromax ceftriaxone and IV Solu-Medrol October 17, 2023: Admitted with pneumonia, right lower extremity superficial wounds and cellulitis. Acute hypoxia. Patient eating his meals. Minimal phlegm. Dressing changes right lower extremity. Has a chronic Rooney. October 18, 2023: Reclining in bed. Breathing better. Had some breakfast. On 4 L nasal cannula. Feels a bit better. Changed over to oral prednisone today. Switch IV Lasix to p.o. Lasix October 18: Breathing okay. Chest x-ray showing significant right-sided pleural effusion. Chest ultrasound: Marking for paracentesis done. Texted Dr. Joshua for the same.-Thoracentesis make a difference to his oxygenation status October 19: Await for Dr. JOSHUA to decide if patient will benefit from thoracentesis. Significant right-sided fluid. On 3 L nasal cannula. Had a good breakfast Active Medications Acetaminophen (Acetaminophen Tab 325 Mg Tab) 650 mg PO Q6HR PRN PRN Reason: Mild Pain or Fever > 100.5 Hydrocodone Bitart/Acetaminophen (Hydrocodone/Apap 10-325mg 1 Each Tab) 1 each PO Q6HR [facility] Last Admin: 10/20/23 18:20 Dose: 1 each Albuterol/Ipratropium (Ipratropium-Albuterol 3 Ml Neb) 3 ml INHALATION RT-Q4H PRN PRN Reason: shortness of breath Albuterol/Ipratropium (Ipratropium-Albuterol 3 Ml Neb) 3 ml INHALATION RT-QID [facility] Last Admin: 10/20/23 15:05 Dose: 3 ml Allopurinol (Allopurinol 100 Mg Tab) 100 mg PO DAILY [facility] Last Admin: 10/20/23 08:10 Dose: 100 mg Aspirin (Aspirin 81 Mg) 81 mg PO DAILY [facility] Last Admin: 10/20/23 08:10 Dose: 81 mg Atorvastatin Calcium (Atorvastatin 20 Mg Tab) 20 mg PO HS [facility] Last Admin: 10/19/23 22:08 Dose: 20 mg Budesonide/Formoterol Fumarate (Symbicort 160-4.5 Mcg Inhaler) 2 puff INHALATION RT-BID [facility] Last Admin: 10/20/23 07:54 Dose: 2 puff Famotidine (Famotidine 20 Mg Tab) 10 mg PO BID [facility] Last Admin: 10/20/23 08:10 Dose: 10 mg Gabapentin (Gabapentin 100 Mg Cap) 100 mg PO TID [facility] Last Admin: 10/20/23 16:04 Dose: 100 mg Heparin Sodium (Porcine) (Heparin Sodium,Porcine 5,000 Unit/Ml 1 Ml Vial) 5,000 unit SQ Q8HR [facility] Last Admin: 10/20/23 16:02 Dose: 5,000 unit Piperacillin Sod/Tazobactam (Sod 3.375 gm/ Sodium Chloride) 100 mls @ 25 mls/hr IVPB Q8HR [facility]; Protocol Last Admin: 10/20/23 16:04 Dose: 25 mls/hr Lactulose (Lactulose 20 Gm/30 Ml Cup) 20 gm PO Q12H PRN PRN Reason: Constipation Melatonin (Melatonin 5 Mg Tablet) 5 mg PO HS [facility] Last Admin: 10/19/23 22:08 Dose: 5 mg Miscellaneous Information (Pneumonia Protocol Utilized 1 Each Misc) 1 each PO ONCE PRN PRN Reason: Per Protocol Miscellaneous Information (Pneumonia Protocol Utilized 1 Each Misc) 1 each PO ONCE PRN PRN Reason: Per Protocol Naloxone HCl (Naloxone 0.4 Mg/Ml 1 Ml Vial) 0.2 mg IV Q2M PRN PRN Reason: Opioid Reversal Ondansetron HCl (Ondansetron 4 Mg/2 Ml Vial) 4 mg IVP Q8HR PRN PRN Reason: Nausea And Vomiting Petrolatum (Zinc Oxide Paste (Z-Guard) 1 Applic) 1 applic TOPICAL BID [facility]; Protocol Last Admin: 10/20/23 12:02 Dose: 1 applic Prednisone (Prednisone 20 Mg Tab) 40 mg PO DAILY [facility] Last Admin: 10/20/23 08:10 Dose: 40 mg Tamsulosin HCl (Tamsulosin 0.4 Mg Cap.Er.24h) 0.4 mg PO DAILY [facility] Last Admin: 10/20/23 08:10 Dose: 0.4 mg Thiamine HCl (Thiamine 100 Mg Tab) 100 mg PO DAILY [facility] Last Admin: 10/20/23 08:10 Dose: 100 mg Past Medical History Past Medical History: Heart Failure, COPD, Hypertension, Myocardial Infarction (ME), Pulmonary Embolus (PE) Additional Past Medical History / Comment(s): Chronic kidney disease stage III, multiple falls, chronic anemia, coronary artery disease, previous bypass surgery, peripheral vascular disease, hypertension, previous history of pulmonary embolism Last Myocardial Infarction Date:: UNSURE History of Any Multi-Drug Resistant Organisms: None Reported Past Surgical History: Coronary Bypass/CABG, Heart Catheterization With Stent Past Anesthesia/Blood Transfusion Reactions: No Reported Reaction Date of Last Stent Placement:: UNSURE Past Psychological History: No Psychological Hx Reported Smoking Status: Current every day smoker Past Alcohol Use History: Daily Past Drug Use History: None Reported - Past Family History Mother History Unknown: Yes On examination: VITAL SIGNS: 97.1, 74, 18, 137 x 77, 94% on 3 L GENERAL APPEARANCE: Resting HEENT: Normal external appearance of nose and ear. Oral cavity normal EYES: Pupils equal. Conjunctiva normal. NECK: JVD not raised. Mass not palpable. RESPIRATORY: Respiratory effort increased. Decreased breath sounds, especially in the right base. CARDIOVASCULAR: First and second sounds normal. No edema. ABDOMEN: Soft. Liver and spleen not palpable. No tenderness. No mass palpable. PSYCHIATRY: Able to answer simple questions EXTREMITIES: Right lower extremity superficial wounds with surrounding cellulitis l. INVESTIGATIONS, reviewed in the clinical context: October 19: Potassium 4.3 BUN 57 creatinine 2.10 2D echocardiogram [October 19, 2023] EF 55 to 60%. Severe pulmonary hypertension. Severe right ventricle and atrial dilatation. October 18: Sodium 140 potassium 3.8 BUN 56 creatinine 2.17 October 16: White count 6 hemoglobin 9.5 platelets 244 potassium 3.6 BUN 53 creatinine 1.90 Influenza type A, type B, RSV, COVID-19: Not detected Urine antigen Legionella antigen: Negative Chest x-ray film personally reviewed by me-right lower lobe infiltrate Assessment: -Right lower lobe pneumonia suspicious for aspiration pneumonia: Better IV ceftriaxone-completed Acute right leg cellulitis, with superficial ulcers on completed IV ceftriaxone. Local care -Acute on chronic CHF, from diastolic dysfunction EF 55 to 60% IV Lasix-changed to oral Lasix. Fluid restriction -Large right pleural effusion suspect from CHF, causing hypoxia Ultrasound chest marking done for thoracentesis. Await input from Dr. JOSHUA -Severe secondary pulmonary hypertension -Acute kidney injury ATN likely cardiorenal Follow renal function closely -Acute on chronic hypoxic respiratory failure: Improving 4 L nasal cannula -Coronary artery disease s/p stent and CABG aspirin. Lipitor -Acute UTI secondary to Rooney catheter cultures positive for E. coli/Pseudomonas IV Zosyn -COPD with mild exacerbation Symbicort with DuoNeb. Prednisone -Chronic kidney disease stage III likely nephrosclerosis -PAD aspirin. Lipitor -Full code Continue current medication treatment plan. Await Dr. JOSHUA decide about thoracentesis.
--- NOTE | 2023-10-21 12:34 | P.PN ---
Subjective Progress Note Date: 10/21/23 Patient is a 72-year-old white male with past medical history significant for COPD, remote history of pulmonary embolism, coronary artery disease with previous bypass surgery, CVA/TIA, heart failure, chronic kidney disease stage III, chronic leg wounds, among many other comorbidities. Patient is a poor istorian. He does not know why he is at the hospital. Upon review of ER documentation upon review of ER documentation, patient was sent in from [facility] after the patient was witnessed to choke on his medications and likely aspirated. He was noted to be in some respiratory distress and hypoxic. EMS transfer the patient to [facility] emergency department yesterday evening, and was placed on a 15 L nonrebreather. Chest x-ray showed low lung volumes with right lower lung airspace opacity concerning for aspiration pneumonitis versus atelectasis. Patient was started on a combination of antibiotics including Zosyn, Flagyl, and azithromycin. CBC drawn in the emergency room: WBC count 6.1, hemoglobin 9.1, hematocrit 28.5, platelets 237. CMP on arrival: Sodium 135, potassium 4.1, chloride 106, serum bicarb 21, BUN 48, creatinine 1.86, glucose 96. Lactic 1.4. LFTs not elevated. NT proBNP 13,400. Urinalysis showing nitrates, large leukocyte, and few bacteria. I am evaluating this patient in the emergency department, room 11. Remains on supplemental oxygen, he is on a 50% Ventimask. He is rhonchorous. He is afebrile. Negative for influenza, RSV, COVID. Remaining vital signs are stable. Progress note dated October 17, 2023. This is a 72-year-old male who is seen in room 380. He was seen in consultation by our team, yesterday. He has a history of COPD, pulmonary embolism, coronary disease with previous bypass surgery, CVA, heart failure, chronic kidney di sease, chronic leg wounds, and multiple other medical problems. The patient was apparently at [facility], and had a witnessed choking episode on his medications. The patient apparently was brought to the hospital for further evaluation. The patient was placed on high flow oxygen at 15 L initially. We were asked to see the patient for possible aspiration pneumonia. Clinically, the patient is doing better. He is on saline at 20 cc an hour. He is getting oxygen by nasal cannula at 4 L. Today will go to convert his Solu-Medrol to prednisone 40 mg, and changes budesonide and formoterol to Symbicort 160/4.5, 2 puffs twice a day. He appears not to have any distress. Current labs include a white count 6, hemoglobin 9.5, hematocrit 30.2, platelet count 244,000. Sodium 138, potassium 3.6, chlorides 105, CO2 21, BUN 53, creatinine 1.90. Procalcitonin is mildly elevated at 0.17. Studies for influenza, Legionella, RSV, and coronavirus were all negative. His urine suggest the possibility of a urinary tract infection. There is gram-negative bacilli in his urine. Chest x- ray suggest a right-sided infiltrate, particularly in the lower lobe. The patient is seen today October 18, 2023 in follow-up on the selective care unit. He is currently awake and alert in no acute distress. He is maintaining good O2 saturations in the 90s on 4 L/min per nasal cannula. He is afebrile. Hemodynamically stable. Right foot wound culture positive for gram-negative bacilli. Urine culture positive for gram-negative bacilli. He remains on ceftriaxone. Continued on DuoNeb inhalations Symbicort, prednisone taper. He remains on Lasix 40 mg IV every 12 hours. Heparin for DVT prophylaxis. He is currently in a -700 mL balance. The patient is seen today October 19, 2023 in follow-up on the selective care unit. He remains resting comfortably in bed. Awake and alert in no acute distress. He is maintaining O2 saturations in the 90s on 5 L/min per nasal cannula. No IV fluids. He is continued on DuoNeb inhalations, Symbicort, prednisone taper. Remains on oral diuretics. Antibiotics in the form of ceftriaxone for his E. coli and pseudomonal aeruginosa UTI and right foot infection. The reports are showing E. coli is ESBL and resistant to ceftriaxone. Heparin for DVT prophyl axis. Chest x-ray reveals a small right pleural effusion. Some mild pulmonary vascular congestion. Sodium 140. Potassium 3.8. Bicarb 26. BUN 56. Creatinine 2.17. Glucose 101. He is currently in a positive balance. The patient is seen today October 20, 2023 in follow-up on the selective care unit. He is awake and alert in no acute distress. Resting comfortably in bed. He is maintaining O2 saturation in the 90s on 5 L/min per nasal cannula. He is continue on DuoNeb ventilations, Symbicort, prednisone taper. Heparin for DVT prophylaxis. He remains on Zosyn. VQ scan revealed no evidence for pulmonary embolus. Urine culture was positive for E. coli and Pseudomonas as well as the right foot culture. Sodium 139. Potassium 4.3. Bicarb 27. BUN 57. Creatinine 2.10. The patient is seen today October 21, 2023 in follow-up on the selective care unit. He is currently sitting up in bed. Awake and alert in no acute distress. He is maintaining O2 saturations in the 90s on 4 L/min per nasal cannula. His only complaint today is that of being tired. Urine in his right foot wound both are positive for E. coli and Pseudomonas aeruginosa. He remains on Zosyn. He remains on DuoNeb ventilations, Symbicort, prednisone taper. Heparin for DVT prophylaxis. No new labs today. Objective - Vital Signs Vital signs: Vital Signs Temp 97.4 F L 10/21/23 08:57 Pulse 72 10/21/23 11:52 Resp 18 10/21/23 11:44 BP 116/68 10/21/23 11:44 Pulse Ox 92 L 10/21/23 11:44 FiO2 35 10/16/23 15:44 Intake & Output 10/20/23 10/21/23 10/21/23 18:59 06:59 18:59 Intake Total 468 120 Output Total 675 400 Balance -207 -400 120 Weight 100 kg Intake: Oral 468 120 Output: Urine 675 400 Other: Voiding Method Incontinent Incontinent Incontinent Indwelling Catheter Indwelling Catheter Indwelling Catheter # Bowel Movements 1 1 - Exam GENERAL EXAM: Alert, 72-year-old male, sitting up in bed, on 4 L nasal cannula, comfortable in no apparent distress. HEAD: Normocephalic and atraumatic EYES: Normal reaction of pupils, equal size. NOSE: Clear with pink turbinates. THROAT: No erythema or exudates. NECK: No masses, no JVD. CHEST: No chest wall deformity. Old sternotomy incisional scar LUNGS: Equal air entry with bilateral rhonchi, worse on the right. No conversational dyspnea or accessory muscle use. CVS: S1 and S2 normal with no audible murmur, regular rhythm. No extra heart sounds ABDOMEN: No hepatosplenomegaly, active bowel sounds, no guarding or rigidity. SPINE: No scoliosis or deformity SKIN: No rashes CENTRAL NERVOUS SYSTEM: Alert, only oriented to self. Follows simple commands. No focal deficits, tone is normal in all 4 extremities. EXTREMITIES: Bilateral lower extremity edema, chronic venous stasis changes, with multiple right lower extremity wounds involving the anterior hurley and foot, with purulent discharge. - Labs CBC & Chem 7: 10/17/23 10:57 10/20/23 08:26 Labs: Microbiology - Last 24 Hours (Table) 10/15/23 18:35 Blood Culture - Final Blood 10/15/23 18:50 Blood Culture - Final Blood 10/16/23 17:19 Anaerobic Culture - Final Foot - Right Assessment and Plan Assessment: Acute hypoxemic respiratory failure, possibly secondary to aspiration and aspiration pneumonitis, patient reportedly had a witnessed aspiration event on his medications at his [facility], chest x-ray on arrival to the emergency department showed low lung volumes with right lower lung airspace opacities concerning for aspiration pneumonia versus atelectasis. Procalcitonin 0.17. VQ scan ruled out pulmonary embolism Acute COPD exacerbation Urinary tract infection secondary to E. coli ESBL and Pseudomonas aeruginosa Right foot culture positive for E. coli ESBL and Pseudomonas aeruginosa Acute kidney injury secondary to diuretics, UTI History of coronary artery disease with previous coronary artery bypass surgery History of heart failure with preserved ejection fraction, follow-up ech ocardiogram pending History of peripheral arterial disease Chronic macrocytic anemia Chronic kidney disease stage III Possible UTI History of alcoholism History of CVA/TIA History of hyperlipidemia Remote history of pulmonary embolism, not on any anticoagulation currently Bilateral lower extremity edema Chronic right lower extremity wounds Former tobacco smoker Plan: The patient was seen and evaluated Labs and medications reviewed Stable and on 4 L nasal cannula Titrate down the FiO2 as tolerated Continue the current treatment plan Plan is for [facility] at discharge I have personally seen and examined the patient, performed the documentation and the assessment and plan as written. Number of minutes spent on the visit: 10.
--- NOTE | 2023-10-21 16:20 | P.PN ---
Progress Note - Text Progress Note Date: 10/21/23 History of Present Illness Patient is a pleasant 72 years old male with past medical history of heart failure, COPD, hypertension, pulmonary embolism, chronic kidney disease stage III, multiple falls, chronic anemia previous coronary artery bypass surgery, hypertension. Patient from correction. At baseline he states he uses 2 to 3 L of oxygen via nasal cannula. Currently he is on 15 L via breathing mask Patient presents because of dyspnea from correction. Also patient complaining from right leg abnormality. There is superficial ulcers with some discharge. Patient denies chest pain or coughing No abdominal pain vomiting or diarrhea. No urinary complaint. No new headache weakness numbness or dizziness. Patient hemodynamically stable other than hypoxia. WBC is normal at 4.2, hemoglobin 10. Creatinine at baseline 1.8 with baseline 1.5-1.8 Other than that BMP and liver enzymes were unremarkable Influenza A and type B, RSV, SARS (coronavirus) are and detected Urine analysis is abnormal suspicious for infection Chest x-ray showing right lower lobe infiltrate suspicious for pneumonia EKG showing sinus rhythm at [address]-T changes with low voltage Patient already started on Zithromax ceftriaxone and IV Solu-Medrol October 17, 2023: Admitted with pneumonia, right lower extremity superficial wounds and cellulitis. Acute hypoxia. Patient eating his meals. Minimal phlegm. Dressing changes right lower extremity. Has a chronic Rooney. October 18, 2023: Reclining in bed. Breathing better. Had some breakfast. On 4 L nasal cannula. Feels a bit better. Changed over to oral prednisone today. Switch IV Lasix to p.o. Lasix October 18: Breathing okay. Chest x-ray showing significant right-sided pleural effusion. Chest ultrasound: Marking for paracentesis done. Texted Dr. Joshua for the same.-Thoracentesis make a difference to his oxygenation status October 19: Await for Dr. JOSHUA to decide if patient will benefit from thoracentesis. Significant right-sided fluid. On 3 L nasal cannula. Had a good breakfast October 20: Reminded Dr. Joshua to evaluate the need for thoracentesis. Patient otherwise eating well. 92% on 4 L. Active Medications Acetaminophen (Acetaminophen Tab 325 Mg Tab) 650 mg PO Q6HR PRN PRN Reason: Mild Pain or Fever > 100.5 Hydrocodone Bitart/Acetaminophen (Hydrocodone/Apap 10-325mg 1 Each Tab) 1 each PO Q6HR [facility] Last Admin: 10/21/23 11:48 Dose: 1 each Albuterol/Ipratropium (Ipratropium-Albuterol 3 Ml Neb) 3 ml INHALATION RT-Q4H PRN PRN Reason: shortness of breath Albuterol/Ipratropium (Ipratropium-Albuterol 3 Ml Neb) 3 ml INHALATION RT-QID [facility] Last Admin: 10/21/23 15:37 Dose: 3 ml Allopurinol (Allopurinol 100 Mg Tab) 100 mg PO DAILY [facility] Last Admin: 10/21/23 09:13 Dose: 100 mg Aspirin (Aspirin 81 Mg) 81 mg PO DAILY [facility] Last Admin: 10/21/23 09:15 Dose: 81 mg Atorvastatin Calcium (Atorvastatin 20 Mg Tab) 20 mg PO HS [facility] Last Admin: 10/20/23 22:09 Dose: 20 mg Budesonide/Formoterol Fumarate (Symbicort 160-4.5 Mcg Inhaler) 2 puff INHALATION RT-BID [facility] Last Admin: 10/21/23 07:53 Dose: 2 puff Famotidine (Famotidine 20 Mg Tab) 10 mg PO BID [facility] Last Admin: 10/21/23 09:14 Dose: 10 mg Gabapentin (Gabapentin 100 Mg Cap) 100 mg PO TID [facility] Last Admin: 10/21/23 09:14 Dose: 100 mg Heparin Sodium (Porcine) (Heparin Sodium,Porcine 5,000 Unit/Ml 1 Ml Vial) 5,000 unit SQ Q8HR [facility] Last Admin: 10/21/23 09:15 Dose: 5,000 unit Piperacillin Sod/Tazobactam (Sod 3.375 gm/ Sodium Chloride) 100 mls @ 25 mls/hr IVPB Q8HR [facility]; Protocol Last Admin: 10/21/23 09:16 Dose: 25 mls/hr Lactulose (Lactulose 20 Gm/30 Ml Cup) 20 gm PO Q12H PRN PRN Reason: Constipation Melatonin (Melatonin 5 Mg Tablet) 5 mg PO HS [facility] Last Admin: 10/20/23 22:08 Dose: 5 mg Miscellaneous Information (Pneumonia Protocol Utilized 1 Each Misc) 1 each PO ONCE PRN PRN Reason: Per Protocol Miscellaneous Information (Pneumonia Protocol Utilized 1 Each Misc) 1 each PO ONCE PRN PRN Reason: Per Protocol Naloxone HCl (Naloxone 0.4 Mg/Ml 1 Ml Vial) 0.2 mg IV Q2M PRN PRN Reason: Opioid Reversal Ondansetron HCl (Ondansetron 4 Mg/2 Ml Vial) 4 mg IVP Q8HR PRN PRN Reason: Nausea And Vomiting Petrolatum (Zinc Oxide Paste (Z-Guard) 1 Applic) 1 applic TOPICAL BID [facility]; Protocol Last Admin: 10/21/23 09:16 Dose: 1 applic Prednisone (Prednisone 20 Mg Tab) 40 mg PO DAILY [facility] Last Admin: 10/21/23 09:13 Dose: 40 mg Tamsulosin HCl (Tamsulosin 0.4 Mg Cap.Er.24h) 0.4 mg PO DAILY [facility] Last Admin: 10/21/23 09:15 Dose: 0.4 mg Thiamine HCl (Thiamine 100 Mg Tab) 100 mg PO DAILY [facility] Last Admin: 10/21/23 09:15 Dose: 100 mg Past Medical History Past Medical History: Heart Failure, COPD, Hypertension, Myocardial Infarction ([place]), Pulmonary Embolus ([place]) Additional Past Medical History / Comment(s): Chronic kidney disease stage III, multiple falls, chronic anemia, coronary artery disease, previous bypass surgery, peripheral vascular disease, hypertension, previous history of pulmonary embolism Last Myocardial Infarction Date:: UNSURE History of Any Multi-Drug Resistant Organisms: None Reported Past Surgical History: Coronary Bypass/CABG, Heart Catheterization With Stent Past Anesthesia/Blood Transfusion Reactions: No Reported Reaction Date of Last Stent Placement:: UNSURE Past Psychological History: No Psychological Hx Reported Smoking Status: Current every day smoker Past Alcohol Use History: Daily Past Drug Use History: None Reported - Past Family History Mother History Unknown: Yes On examination: VITAL SIGNS: 97.4, 95, 18, 122 x 79, 93% on 4 L GENERAL APPEARANCE: Propped up in bed HEENT: Normal external appearance of nose and ear. Oral cavity normal EYES: Pupils equal. Conjunctiva normal. NECK: JVD not raised. Mass not palpable. RESPIRATORY: Respiratory effort increased. Decreased breath sounds, especially in the right base. CARDIOVASCULAR: First and second sounds normal. No edema. ABDOMEN: Soft. Liver and spleen not palpable. No tenderness. No mass palpable. PSYCHIATRY: Able to answer simple questions EXTREMITIES: Right lower extremity superficial wounds with surrounding cellulitis l. INVESTIGATIONS, reviewed in the clinical context: October 19: Potassium 4.3 BUN 57 creatinine 2.10 2D echocardiogram [October 19, 2023] EF 55 to 60%. Severe pulmonary hypertension. Severe right ventricle and atrial dilatation. October 18: Sodium 140 potassium 3.8 BUN 56 creatinine 2.17 October 16: White count 6 hemoglobin 9.5 platelets 244 potassium 3.6 BUN 53 creatinine 1.90 Influenza type A, type B, RSV, COVID-19: Not detected Urine antigen Legionella antigen: Negative Chest x-ray film personally reviewed by me-right lower lobe infiltrate Assessment: -Right lower lobe pneumonia suspicious for aspiration pneumonia: Better IV ceftriaxone-completed Acute right leg cellulitis, with superficial ulcers on completed IV ceftriaxone. Local care -Acute on chronic CHF, from diastolic dysfunction EF 55 to 60% IV Lasix-changed to oral Lasix then held because of worsening renal function.. Fluid restriction -Large right pleural effusion suspect from CHF, causing hypoxia Ultrasound chest marking done for thoracentesis. Await input from Dr. JOSHUA -Severe secondary pulmonary hypertension -Acute kidney injury ATN likely cardiorenal Follow renal function closely. Lasix held -Acute on chronic hypoxic respiratory failure: Improving 4 L nasal cannula -Coronary artery disease s/p stent and CABG aspirin. Lipitor -Acute UTI secondary to Rooney catheter cultures positive for E. coli/Pseudomonas IV Zosyn -COPD with mild exacerbation Symbicort with DuoNeb. Prednisone -Chronic kidney disease stage III likely nephrosclerosis -PAD aspirin. Lipitor -Full code Await input from Dr. JOSHUA regarding thoracentesis. Continue to hold Lasix. Repeat labs in the morning.
[2023-10-22 08:23] LABS: African American GFR (CKD) 38 (>60 ml/min/1.73 sqM); Anion Gap 4 mmol/L; Blood Urea Nitrogen 48 mg/dL (9-20); Calcium 9.3 mg/dL (8.4-10.2); Carbon Dioxide 25 mmol/L (22-30); Chloride 110 mmol/L (98-107); Glucose 88 mg/dL (74-99); Non-African American GFR(CKD) 33 (>60 ml/min/1.73 sqM); Potassium 3.8 mmol/L (3.5-5.1); Sodium 139 mmol/L (137-145)
[2023-10-22] MEDS: predniSONE 10 MG TAB PO SCH (09:53)
--- NOTE | 2023-10-22 12:42 | XR ---
EXAMINATION TYPE: XR chest 1V DATE OF EXAM: 10/22/2023 COMPARISON: 10/19/2023 HISTORY: Shortness of breath TECHNIQUE: Single frontal view of the chest is obtained. FINDINGS: Cardiomegaly with postmedian sternotomy changes. Bilateral consolidation and pleural effus ion with diffuse interstitial pattern. Diffuse osteopenia and arthropathy of the shoulder. Degenerati ve changes spine. Postmedian sternotomy changes. IMPRESSION: Correlate for CHF. Underlying infiltrate not excluded.
--- NOTE | 2023-10-22 17:23 | P.PN ---
Progress Note - Text Progress Note Date: 10/22/23 History of Present Illness Patient is a pleasant 72 years old male with past medical history of heart failure, COPD, hypertension, pulmonary embolism, chronic kidney disease stage III, multiple falls, chronic anemia previous coronary artery bypass surgery, hypertension. Patient from senior living. At baseline he states he uses 2 to 3 L of oxygen via nasal cannula. Currently he is on 15 L via breathing mask Patient presents because of dyspnea from senior living. Also patient complaining from right leg abnormality. There is superficial ulcers with some discharge. Patient denies chest pain or coughing No abdominal pain vomiting or diarrhea. No urinary complaint. No new headache weakness numbness or dizziness. Patient hemodynamically stable other than hypoxia. WBC is normal at 4.2, hemoglobin 10. Creatinine at baseline 1.8 with baseline 1.5-1.8 Other than that BMP and liver enzymes were unremarkable Influenza A and type B, RSV, SARS (coronavirus) are and detected Urine analysis is abnormal suspicious for infection Chest x-ray showing right lower lobe infiltrate suspicious for pneumonia EKG showing sinus rhythm at [address]-T changes with low voltage Patient already started on Zithromax ceftriaxone and IV Solu-Medrol October 17, 2023: Admitted with pneumonia, right lower extremity superficial wounds and cellulitis. Acute hypoxia. Patient eating his meals. Minimal phlegm. Dressing changes right lower extremity. Has a chronic Rooney. October 18, 2023: Reclining in bed. Breathing better. Had some breakfast. On 4 L nasal cannula. Feels a bit better. Changed over to oral prednisone today. Switch IV Lasix to p.o. Lasix October 18: Breathing okay. Chest x-ray showing significant right-sided pleural effusion. Chest ultrasound: Marking for paracentesis done. Texted Dr. Joshua for the same.-Thoracentesis make a difference to his oxygenation status October 19: Await for Dr. JOSHUA to decide if patient will benefit from thoracentesis. Significant right-sided fluid. On 3 L nasal cannula. Had a good breakfast October 20: Reminded Dr. Joshua to evaluate the need for thoracentesis. Patient otherwise eating well. 92% on 4 L. October 21: This morning on 3 L nasal cannula. Discussed with Dr. Dale. He will do it repeat chest x-ray and then decide about thoracentesis. Patient had a good breakfast. He normally does not like to eat lunch or dinner. Hold discharge until further decision per pulmonary about thoracentesis Active Medications Acetaminophen (Acetaminophen Tab 325 Mg Tab) 650 mg PO Q6HR PRN PRN Reason: Mild Pain or Fever > 100.5 Hydrocodone Bitart/Acetaminophen (Hydrocodone/Apap 10-325mg 1 Each Tab) 1 each PO Q6HR [facility] Last Admin: 10/22/23 12:21 Dose: 1 each Albuterol/Ipratropium (Ipratropium-Albuterol 3 Ml Neb) 3 ml INHALATION RT-Q4H PRN PRN Reason: shortness of breath Albuterol/Ipratropium (Ipratropium-Albuterol 3 Ml Neb) 3 ml INHALATION RT-QID [facility] Last Admin: 10/22/23 16:08 Dose: 3 ml Allopurinol (Allopurinol 100 Mg Tab) 100 mg PO DAILY [facility] Last Admin: 10/22/23 09:53 Dose: 100 mg Aspirin (Aspirin 81 Mg) 81 mg PO DAILY [facility] Last Admin: 10/22/23 09:53 Dose: 81 mg Atorvastatin Calcium (Atorvastatin 20 Mg Tab) 20 mg PO HS [facility] Last Admin: 10/21/23 21:47 Dose: 20 mg Budesonide/Formoterol Fumarate (Symbicort 160-4.5 Mcg Inhaler) 2 puff INHALATION RT-BID [facility] Last Admin: 10/22/23 09:06 Dose: 2 puff Famotidine (Famotidine 20 Mg Tab) 10 mg PO BID [facility] Last Admin: 10/22/23 09:53 Dose: 10 mg Gabapentin (Gabapentin 100 Mg Cap) 100 mg PO TID [facility] Last Admin: 10/22/23 16:44 Dose: 100 mg Heparin Sodium (Porcine) (Heparin Sodium,Porcine 5,000 Unit/Ml 1 Ml Vial) 5,000 unit SQ Q8HR [facility] Last Admin: 10/22/23 16:45 Dose: 5,000 unit Piperacillin Sod/Tazobactam (Sod 3.375 gm/ Sodium Chloride) 100 mls @ 25 mls/hr IVPB Q8HR [facility]; Protocol Last Admin: 10/22/23 16:44 Dose: 25 mls/hr Lactulose (Lactulose 20 Gm/30 Ml Cup) 20 gm PO Q12H PRN PRN Reason: Constipation Melatonin (Melatonin 5 Mg Tablet) 5 mg PO [facility] Last Admin: 10/21/23 21:47 Dose: 5 mg Miscellaneous Information (Pneumonia Protocol Utilized 1 Each Mis) 1 each PO ONCE PRN PRN Reason: Per Protocol Miscellaneous Information (Pneumonia Protocol Utilized 1 Each Misc) 1 each PO ONCE PRN PRN Reason: Per Protocol Naloxone HCl (Naloxone 0.4 Mg/Ml 1 Ml Vial) 0.2 mg IV Q2M PRN PRN Reason: Opioid Reversal Ondansetron HCl (Ondansetron 4 Mg/2 Ml Vial) 4 mg IVP Q8HR PRN PRN Reason: Nausea And Vomiting Petrolatum (Zinc Oxide Paste (Z-Guard) 1 Applic) 1 applic TOPICAL BID [facility]; Protocol Last Admin: 10/22/23 16:43 Dose: Not Given Prednisone (Prednisone 10 Mg Tab) 30 mg PO DAILY [facility] Last Admin: 10/22/23 09:53 Dose: 30 mg Tamsulosin HCl (Tamsulosin 0.4 Mg Cap.Er.24h) 0.4 mg PO DAILY [facility] Last Admin: 10/22/23 09:53 Dose: 0.4 mg Thiamine HCl (Thiamine 100 Mg Tab) 100 mg PO DAILY [facility] Last Admin: 10/22/23 09:54 Dose: 100 mg Past Medical History Past Medical History: Heart Failure, COPD, Hypertension, Myocardial Infarction (MS), Pulmonary Embolus (PE) Additional Past Medical History / Comment(s): Chronic kidney disease stage III, multiple falls, chronic anemia, coronary artery disease, previous bypass surgery, peripheral vascular disease, hypertension, previous history of pulmonary embolism Last Myocardial Infarction Date:: UNSURE History of Any Multi-Drug Resistant Organisms: None Reported Past Surgical History: Coronary Bypass/CABG, Heart Catheterization With Stent Past Anesthesia/Blood Transfusion Reactions: No Reported Reaction Date of Last Stent Placement:: UNSURE Past Psychological History: No Psychological Hx Reported Smoking Status: Current every day smoker Past Alcohol Use History: Daily Past Drug Use History: None Reported - Past Family History Mother History Unknown: Yes On examination: VITAL SIGNS: 98.2, 99, 18, 99 x 54, 92% on 3 L GENERAL APPEARANCE: Reclining in bed HEENT: Normal external appearance of nose and ear. Oral cavity normal EYES: Pupils equal. Conjunctiva normal. NECK: JVD not raised. Mass not palpable. RESPIRATORY: Respiratory effort increased. Decreased breath sounds, especially in the right base. CARDIOVASCULAR: First and second sounds normal. No edema. ABDOMEN: Soft. Liver and spleen not palpable. No tenderness. No mass palpable. PSYCHIATRY: Able to answer simple questions EXTREMITIES: Right lower extremity superficial wounds with surrounding cellulitis l. INVESTIGATIONS, reviewed in the clinical context: October 21: Potassium 3.8 BUN 48 creatinine 1.98 October 19: Potassium 4.3 BUN 57 creatinine 2.10 2D echocardiogram [October 19, 2023] EF 55 to 60%. Severe pulmonary hypertension. Severe right ventricle and atrial dilatation. October 18: Sodium 140 potassium 3.8 BUN 56 creatinine 2.17 October 16: White count 6 hemoglobin 9.5 platelets 244 potassium 3.6 BUN 53 creatinine 1.90 Influenza type A, type B, RSV, COVID-19: Not detected Urine antigen Legionella antigen: Negative Chest x-ray film personally reviewed by me-right lower lobe infiltrate Assessment: -Right lower lobe pneumonia suspicious for aspiration pneumonia: Better IV ceftriaxone-completed Acute right leg cellulitis, with superficial ulcers on completed IV ceftriaxone. Local care -Acute on chronic CHF, from diastolic dysfunction EF 55 to 60% IV Lasix-changed to oral Lasix then held because of worsening renal function.. Fluid restriction -Large right pleural effusion suspect from CHF, causing hypoxia Ultrasound chest marking done for thoracentesis. Dr. Dale will decide about thoracentesis based on chest x-ray today -Severe secondary pulmonary hypertension -Acute kidney injury ATN likely cardiorenal Follow renal function closely. Lasix held -Acute on chronic hypoxic respiratory failure: Improving 3 L nasal cannula -Coronary artery disease s/p stent and CABG aspirin. Lipitor -Acute UTI secondary to Rooney catheter cultures positive for E. coli/Pseudomonas IV Zosyn -COPD with mild exacerbation Symbicort with DuoNeb. Prednisone -Chronic kidney disease stage III likely nephrosclerosis -PAD aspirin. Lipitor -Full code Await decision by pulmonary about thoracentesis. Otherwise plan for discharge to [facility] tomorrow.
--- NOTE | 2023-10-22 17:37 | P.PN ---
Subjective Progress Note Date: 10/22/23 Patient is a 72-year-old white male with past medical history significant for COPD, remote history of pulmonary embolism, coronary artery disease with previous bypass surgery, CVA/TIA, heart failure, chronic kidney disease stage III, chronic leg wounds, among many other comorbidities. Patient is a poor historian. He does not know why he is at the hospital. Upon review of ER documentation upon review of ER documentation, patient was sent in from [facility] after the patient was witnessed to choke on his medications and likely aspirated. He was noted to be in some respiratory distress and hypoxic. EMS transfer the patient to [facility] emergency department yesterday evening, and was placed on a 15 L nonrebreather. Chest x-ray showed low lung volumes with right lower lung airspace opacity concerning for aspiration pneumonitis versus atelectasis. Patient was started on a combination of antibiotics including Zosyn, Flagyl, and azithromycin. CBC drawn in the emergency room: WBC count 6.1, hemoglobin 9.1, hematocrit 28.5, platelets 237. CMP on arrival: Sodium 135, potassium 4.1, chloride 106, serum bicarb 21, BUN 48, creatinine 1.86, glucose 96. Lactic 1.4. LFTs not elevated. NT proBNP 13,400. Urinalysis showing nitrates, large leukocyte, and few bacteria. I am evaluating this patient in the emergency department, room 11. Remains on supplemental oxygen, he is on a 50% Ventimask. He is rhonchorous. He is afebrile. Negative for influenza, RSV, COVID. Remaining vital signs are stable. Progress note dated October 17, 2023. This is a 72-year-old male who is seen in room 380. He was seen in consultation by our team, yesterday. He has a history of COPD, pulmonary embolism, coronary disease with previous bypass surgery, CVA, heart failure, chronic kidney d isease, chronic leg wounds, and multiple other medical problems. The patient was apparently at [facility], and had a witnessed choking episode on his medications. The patient apparently was brought to the hospital for further evaluation. The patient was placed on high flow oxygen at 15 L initially. We were asked to see the patient for possible aspiration pneumonia. Clinically, the patient is doing better. He is on saline at 20 cc an hour. He is getting oxygen by nasal cannula at 4 L. Today will go to convert his Solu- Medrol to prednisone 40 mg, and changes budesonide and formoterol to Symbicort 160/4.5, 2 puffs twice a day. He appears not to have any distress. Current labs include a white count 6, hemoglobin 9.5, hematocrit 30.2, platelet count 244,000. Sodium 138, potassium 3.6, chlorides 105, CO2 21, BUN 53, creatinine 1.90. Procalcitonin is mildly elevated at 0.17. Studies for influenza, Legionella, RSV, and coronavirus were all negative. His urine suggest the possibility of a urinary tract infection. There is gram-negative bacilli in his urine. Chest x-ray suggest a right-sided infiltrate, particularly in the lower lobe. The patient is seen today October 18, 2023 in follow-up on the selective care unit. He is currently awake and alert in no acute distress. He is maintaining good O2 saturations in the 90s on 4 L/min per nasal cannula. He is afebrile. Hemodynamically stable. Right foot wound culture positive for gram-negative bacilli. Urine culture positive for gram-negative bacilli. He remains on ceftriaxone. Continued on DuoNeb inhalations Symbicort, prednisone taper. He remains on Lasix 40 mg IV every 12 hours. Heparin for DVT prophylaxis. He is currently in a -700 mL balance. The patient is seen today October 19, 2023 in follow-up on the selective care unit. He remains resting comfortably in bed. Awake and alert in no acute distress. He is maintaining O2 saturations in the 90s on 5 L/min per nasal cannula. No IV fluids. He is continued on DuoNeb inhalations, Symbicort, prednisone taper. Remains on oral diuretics. Antibiotics in the form of ceftriaxone for his E. coli and pseudomonal aeruginosa UTI and right foot infection. The reports are showing E. coli is ESBL and resistant to ceftriaxone. Heparin for DVT prophy laxis. Chest x-ray reveals a small right pleural effusion. Some mild pulmonary vascular congestion. Sodium 140. Potassium 3.8. Bicarb 26. BUN 56. Creatinine 2.17. Glucose 101. He is currently in a positive balance. The patient is seen today October 20, 2023 in follow-up on the selective care unit. He is awake and alert in no acute distress. Resting comfortably in bed. He is maintaining O2 saturation in the 90s on 5 L/min per nasal cannula. He is continue on DuoNeb ventilations, Symbicort, prednisone taper. Heparin for DVT prophylaxis. He remains on Zosyn. VQ scan revealed no evidence for pulmonary embolus. Urine culture was positive for E. coli and Pseudomonas as well as the right foot culture. Sodium 139. Potassium 4.3. Bicarb 27. BUN 57. Creatinine 2.10. The patient is seen today October 21, 2023 in follow-up on the selective care unit. He is currently sitting up in bed. Awake and alert in no acute distress. He is maintaining O2 saturations in the 90s on 4 L/min per nasal cannula. His only complaint today is that of being tired. Urine in his right foot wound both are positive for E. coli and Pseudomonas aeruginosa. He remains on Zosyn. He remains on DuoNeb ventilations, Symbicort, prednisone taper. Heparin for DVT prophylaxis. No new labs today. On today's evaluation of 10/22/2023, the patient is being seen for a follow-up. Patient is doing well. No significant respiratory distress with a pulse ox of 95% on 2 L of oxygen by nasal cannula. A repeat chest x-ray was done and shows cardiomegaly. Small right-sided pleural effusion. Diffuse osteopenia and arthropathy of the shoulder. Degenerative changes of the spine was also seen. The patient is resting comfortably in bed. The patient remains on IV Zosyn. The patient on prednisone burst taper starting with 30 mg p.o. daily. The patient Symbicort as maintenance. No new complaints for now. BUN is 48 with a creatinine 1.9 and a sodium levels at 139 with a potassium of 3.8, serum bicarb is at 25. Procalcitonin level is 0.17. The fluid balance is -600 cc over the past 24 hours. Objective - Vital Signs Vital signs: Vital Signs Temp 98.2 F 10/22/23 09:27 Pulse 98 10/22/23 11:22 Resp 16 10/22/23 11:22 BP 107/59 10/22/23 11:22 Pulse Ox 92 L 10/22/23 11:22 FiO2 35 10/16/23 15:44 Intake & Output 10/21/23 10/22/23 10/22/23 18:59 06:59 18:59 Intake Total 250 222 Output Total 400 450 Balance -150 -450 222 Weight 100 kg Intake: IV 10 Invasive Line 2 10 Oral 240 222 Output: Urine 400 450 Other: Voiding Method Incontinent Incontinent Indwelling Catheter Indwelling Catheter # Bowel Movements 1 1 - Exam GENERAL EXAM: Alert, 72-year-old male, sitting up in bed, on 2 L nasal cannula, comfortable in no apparent distress. HEAD: Normocephalic and atraumatic EYES: Normal reaction of pupils, equal size. NOSE: Clear with pink turbinates. THROAT: No erythema or exudates. NECK: No masses, no JVD. CHEST: No chest wall deformity. Old sternotomy incisional scar LUNGS: Equal air entry with bilateral rhonchi, worse on the right. No conversational dyspnea or accessory muscle use. CVS: S1 and S2 normal with no audible murmur, regular rhythm. No extra heart sounds ABDOMEN: No hepatosplenomegaly, active bowel sounds, no guarding or rigidity. SPINE: No scoliosis or deformity SKIN: No rashes CENTRAL NERVOUS SYSTEM: Alert, only oriented to self. Follows simple commands. No focal deficits, tone is normal in all 4 extremities. EXTREMITIES: Bilateral lower extremity edema, chronic venous stasis changes, with multiple right lower extremity wounds involving the anterior hurley and foot, with purulent discharge. - Labs CBC & Chem 7: 10/17/23 10:57 10/22/23 06:46 Labs: Abnormal Lab Results - Last 24 Hours (Table) 10/22/23 Range/Units 06:46 Chloride 110 H (98-107) mmol/L BUN 48 H (9-20) mg/dL Creatinine 1.98 H (0.66-1.25) mg/dL Assessment and Plan Plan: Acute hypoxemic respiratory failure, possibly secondary to aspiration and aspiration pneumonitis, patient reportedly had a witnessed aspiration event on his medications at his ECF, chest x-ray on arrival to the emergency department showed low lung volumes with right lower lung airspace opacities concerning for aspiration pneumonia versus atelectasis. Procalcitonin 0.17. VQ scan ruled out pulmonary embolism. Repeat chest x-ray still showing persistent elevation of the lung base bilaterally. Clinically improved and the patient is currently on 30s of oxygen by nasal cannula. A small Perfusion was also noted. Acute COPD exacerbation, improving Urinary tract infection secondary to E. coli ESBL and Pseudomonas aeruginosa Right foot cellulitis with culture positive for E. coli ESBL and Pseudomonas aeruginosa Acute kidney injury secondary to diuretics, UTI, creatinine is stable History of coronary artery disease with previous coronary artery bypass surgery History of heart failure with preserved ejection fraction, follow-up echocardiogram pending History of peripheral arterial disease Chronic macrocytic anemia Chronic kidney disease stage III Possible UTI History of alcoholism History of CVA/TIA History of hyperlipidemia Remote history of pulmonary embolism, not on any anticoagulation currently Bilateral lower extremity edema Chronic right lower extremity wounds Former tobacco smoker Plan: Stable and on 2 L of oxygen nasal cannula Titrate down the FiO2 as tolerated Reevaluate for possible thoracentesis of the right lung. Pleural effusion for now is small and the repeat chest x-ray shows only an area of consolidation and effusion Antibiotic adjustments per medicine and infectious disease Continue the current treatment plan Plan is for [facility] at discharge once more stable.
[2023-10-23] MEDS: VANCOMYCIN 125 MG CAPSULE PO SCH (12:03)
--- NOTE | 2023-10-23 13:09 | P.PN ---
Subjective Progress Note Date: 10/23/23 Patient is a 72-year-old white male with past medical history significant for COPD, remote history of pulmonary embolism, coronary artery disease with previous bypass surgery, CVA/TIA, heart failure, chronic kidney disease stage III, chronic leg wounds, among many other comorbidities. Patient is a poor historian. He does not know why he is at the hospital. Upon review of ER documentation upon review of ER documentation, patient was sent in from [facility] after the patient was witnessed to choke on his medications and likely aspirated. He was noted to be in some respiratory distress and hypoxic. EMS transfer the patient to [facility] emergency department yesterday evening, and was placed on a 15 L nonrebreather. Chest x-ray showed low lung volumes with right lower lung airspace opacity concerning for aspiration pneumonitis versus atelectasis. Patient was started on a combination of antibiotics including Zosyn, Flagyl, and azithromycin. CBC drawn in the emergency room: WBC count 6.1, hemoglobin 9.1, hematocrit 28.5, platelets 237. CMP on arrival: Sodium 135, potassium 4.1, chloride 106, serum bicarb 21, BUN 48, creatinine 1.86, glucose 96. Lactic 1.4. LFTs not elevated. NT proBNP 13,400. Urinalysis showing nitrates, large leukocyte, and few bacteria. I am evaluating this patient in the emergency department, room 11. Remains on supplemental oxygen, he is on a 50% Ventimask. He is rhonchorous. He is afebrile. Negative for influenza, RSV, COVID. Remaining vital signs are stable. Progress note dated October 17, 2023. This is a 72-year-old male who is seen in room 380. He was seen in consultation by our team, yesterday. He has a history of COPD, pulmonary embolism, coronary disease with previous bypass surgery, CVA, heart failure, chronic kidney d isease, chronic leg wounds, and multiple other medical problems. The patient was apparently at [facility], and had a witnessed choking episode on his medications. The patient apparently was brought to the hospital for further evaluation. The patient was placed on high flow oxygen at 15 L initially. We were asked to see the patient for possible aspiration pneumonia. Clinically, the patient is doing better. He is on saline at 20 cc an hour. He is getting oxygen by nasal cannula at 4 L. Today will go to convert his Solu- Medrol to prednisone 40 mg, and changes budesonide and formoterol to Symbicort 160/4.5, 2 puffs twice a day. He appears not to have any distress. Current labs include a white count 6, hemoglobin 9.5, hematocrit 30.2, platelet count 244,000. Sodium 138, potassium 3.6, chlorides 105, CO2 21, BUN 53, creatinine 1.90. Procalcitonin is mildly elevated at 0.17. Studies for influenza, Legionella, RSV, and coronavirus were all negative. His urine suggest the possibility of a urinary tract infection. There is gram-negative bacilli in his urine. Chest x-ray suggest a right-sided infiltrate, particularly in the lower lobe. The patient is seen today October 18, 2023 in follow-up on the selective care unit. He is currently awake and alert in no acute distress. He is maintaining good O2 saturations in the 90s on 4 L/min per nasal cannula. He is afebrile. Hemodynamically stable. Right foot wound culture positive for gram-negative bacilli. Urine culture positive for gram-negative bacilli. He remains on ceftriaxone. Continued on DuoNeb inhalations Symbicort, prednisone taper. He remains on Lasix 40 mg IV every 12 hours. Heparin for DVT prophylaxis. He is currently in a -700 mL balance. The patient is seen today October 19, 2023 in follow-up on the selective care unit. He remains resting comfortably in bed. Awake and alert in no acute distress. He is maintaining O2 saturations in the 90s on 5 L/min per nasal cannula. No IV fluids. He is continued on DuoNeb inhalations, Symbicort, prednisone taper. Remains on oral diuretics. Antibiotics in the form of ceftriaxone for his E. coli and pseudomonal aeruginosa UTI and right foot infection. The reports are showing E. coli is ESBL and resistant to ceftriaxone. Heparin for DVT prophy laxis. Chest x-ray reveals a small right pleural effusion. Some mild pulmonary vascular congestion. Sodium 140. Potassium 3.8. Bicarb 26. BUN 56. Creatinine 2.17. Glucose 101. He is currently in a positive balance. The patient is seen today October 20, 2023 in follow-up on the selective care unit. He is awake and alert in no acute distress. Resting comfortably in bed. He is maintaining O2 saturation in the 90s on 5 L/min per nasal cannula. He is continue on DuoNeb ventilations, Symbicort, prednisone taper. Heparin for DVT prophylaxis. He remains on Zosyn. VQ scan revealed no evidence for pulmonary embolus. Urine culture was positive for E. coli and Pseudomonas as well as the right foot culture. Sodium 139. Potassium 4.3. Bicarb 27. BUN 57. Creatinine 2.10. The patient is seen today October 21, 2023 in follow-up on the selective care unit. He is currently sitting up in bed. Awake and alert in no acute distress. He is maintaining O2 saturations in the 90s on 4 L/min per nasal cannula. His only complaint today is that of being tired. Urine in his right foot wound both are positive for E. coli and Pseudomonas aeruginosa. He remains on Zosyn. He remains on DuoNeb ventilations, Symbicort, prednisone taper. Heparin for DVT prophylaxis. No new labs today. On today's evaluation of 10/22/2023, the patient is being seen for a follow-up. Patient is doing well. No significant respiratory distress with a pulse ox of 95% on 2 L of oxygen by nasal cannula. A repeat chest x-ray was done and shows cardiomegaly. Small right-sided pleural effusion. Diffuse osteopenia and arthropathy of the shoulder. Degenerative changes of the spine was also seen. The patient is resting comfortably in bed. The patient remains on IV Zosyn. The patient on prednisone burst taper starting with 30 mg p.o. daily. The patient Symbicort as maintenance. No new complaints for now. BUN is 48 with a creatinine 1.9 and a sodium levels at 139 with a potassium of 3.8, serum bicarb is at 25. Procalcitonin level is 0.17. The fluid balance is -600 cc over the past 24 hours. On 10/23/2023, the patient is comfortable in bed on 4 L of oxygen by nasal cannula. The patient was having liquidy diarrhea. Further investigation revealed that the patient was positive for C. difficile colitis and the patient was started on vancomycin 125 mg p.o. 4 times daily. No abdominal pain. Abd ominal distention. No emesis. No nausea. BUN is 48 with a creatinine 1.9 and sodium is at 139. Was approached again by internal medicine regarding thoracentesis of the right lung. Ultrasound markings have been obtained. Objective - Vital Signs Vital signs: Vital Signs Temp 97.4 F L 10/23/23 07:22 Pulse 79 10/23/23 07:22 Resp 18 10/23/23 07:22 BP 132/66 10/23/23 07:22 Pulse Ox 95 10/23/23 07:22 FiO2 35 10/16/23 15:44 Intake & Output 10/22/23 10/23/23 10/23/23 18:59 06:59 18:59 Intake Total 340 Output Total 325 325 Balance 15 -325 Weight 100 kg 99.5 kg Intake: Oral 340 Output: Urine 325 325 Other: Voiding Method Indwelling Catheter Indwelling Catheter # Bowel Movements 1 1 1 - Exam GENERAL EXAM: Alert, 72-year-old male, sitting up in bed, on 2 L nasal cannula, comfortable in no apparent distress. HEAD: Normocephalic and atraumatic EYES: Normal reaction of pupils, equal size. NOSE: Clear with pink turbinates. THROAT: No erythema or exudates. NECK: No masses, no JVD. CHEST: No chest wall deformity. Old sternotomy incisional scar LUNGS: Equal air entry with bilateral rhonchi, worse on the right. No conversational dyspnea or accessory muscle use. CVS: S1 and S2 normal with no audible murmur, regular rhythm. No extra heart sounds ABDOMEN: No hepatosplenomegaly, active bowel sounds, no guarding or rigidity. SPINE: No scoliosis or deformity SKIN: No rashes CENTRAL NERVOUS SYSTEM: Alert, only oriented to self. Follows simple commands. No focal deficits, tone is normal in all 4 extremities. EXTREMITIES: Bilateral lower extremity edema, chronic venous stasis changes, with multiple right lower extremity wounds involving the anterior hurley and foot, with purulent discharge. - Labs CBC & Chem 7: 10/17/23 10:57 10/22/23 06:46 Labs: Abnormal Lab Results - Last 24 Hours (Table) 10/23/23 Range/Units 07:48 C. difficile (EIA) Intrp Positive A (Negative) Assessment and Plan Plan: Acute hypoxemic respiratory failure, possibly secondary to aspiration and aspiration pneumonitis, patient reportedly had a witnessed aspiration event on his medications at his [facility], chest x-ray on arrival to the emergency department showed low lung volumes with right lower lung airspace opacities concerning for aspiration pneumonia versus atelectasis. Procalcitonin 0.17. VQ scan ruled out pulmonary embolism. Repeat chest x-ray still showing persistent elevation of the lung base bilaterally. Clinically remains hypoxic on 4 L of oxygen by nasal cannula and the patient remains on IV Zosyn C. difficile colitis, started on oral vancomycin. Patient is having liquidy diarrhea. Acute COPD exacerbation, improving Urinary tract infection secondary to E. coli ESBL and Pseudomonas aeruginosa Right foot cellulitis with culture positive for E. coli ESBL and Pseudomonas aeruginosa Acute kidney injury secondary to diuretics, UTI, creatinine is stable History of coronary artery disease with previous coronary artery bypass surgery History of heart failure with preserved ejection fraction, follow-up echocardiogram pending History of peripheral arterial disease Chronic macrocytic anemia Chronic kidney disease stage III Possible UTI History of alcoholism History of CVA/TIA History of hyperlipidemia Remote history of pulmonary embolism, not on any anticoagulation currently Bilateral lower extremity edema Chronic right lower extremity wounds Former tobacco smoker Plan: Oxygenation is slightly worsened currently on 4 L of oxygen nasal cannula, no significant shortness of breath Titrate down the FiO2 as tolerated thoracentesis of the right lung. Antibiotic adjustments per medicine and infectious disease Continue the current treatment plan Plan is for [facility] at discharge once more stable.
--- NOTE | 2023-10-23 15:45 | P.PN ---
Progress Note - Text Progress Note Date: 10/23/23 History of Present Illness Patient is a pleasant 72 years old male with past medical history of heart failure, COPD, hypertension, pulmonary embolism, chronic kidney disease stage III, multiple falls, chronic anemia previous coronary artery bypass surgery, hypertension. Patient from longterm. At baseline he states he uses 2 to 3 L of oxygen via nasal cannula. Currently he is on 15 L via breathing mask Patient presents because of dyspnea from longterm. Also patient complaining from right leg abnormality. There is superficial ulcers with some discharge. Patient denies chest pain or coughing No abdominal pain vomiting or diarrhea. No urinary complaint. No new headache weakness numbness or dizziness. Patient hemodynamically stable other than hypoxia. WBC is normal at 4.2, hemoglobin 10. Creatinine at baseline 1.8 with baseline 1.5-1.8 Other than that BMP and liver enzymes were unremarkable Influenza A and type B, RSV, SARS (coronavirus) are and detected Urine analysis is abnormal suspicious for infection Chest x-ray showing right lower lobe infiltrate suspicious for pneumonia EKG showing sinus rhythm at [address]-T changes with low voltage Patient already started on Zithromax ceftriaxone and IV Solu-Medrol October 17, 2023: Admitted with pneumonia, right lower extremity superficial wounds and cellulitis. Acute hypoxia. Patient eating his meals. Minimal phlegm. Dressing changes right lower extremity. Has a chronic Rooney. October 18, 2023: Reclining in bed. Breathing better. Had some breakfast. On 4 L nasal cannula. Feels a bit better. Changed over to oral prednisone today. Switch IV Lasix to p.o. Lasix October 18: Breathing okay. Chest x-ray showing significant right-sided pleural effusion. Chest ultrasound: Marking for paracentesis done. Texted Dr. Joshua for the same.-Thoracentesis make a difference to his oxygenation status October 19: Await for Dr. JOSHUA to decide if patient will benefit from thoracentesis. Significant right-sided fluid. On 3 L nasal cannula. Had a good breakfast October 20: Reminded Dr. Joshua to evaluate the need for thoracentesis. Patient otherwise eating well. 92% on 4 L. October 21: This morning on 3 L nasal cannula. Discussed with Dr. Dale. He will do it repeat chest x-ray and then decide about thoracentesis. Patient had a good breakfast. He normally does not like to eat lunch or dinner. Hold discharge until further decision per pulmonary about thoracentesis October 22: Patient pending thoracentesis with Dr. Chito rivera. Started on vancomycin and patient came back positive for C. difficile. Had numerous stools last night. Changed to full liquid diet At Active Medications Acetaminophen (Acetaminophen Tab 325 Mg Tab) 650 mg PO Q6HR PRN PRN Reason: Mild Pain or Fever > 100.5 Hydrocodone Bitart/Acetaminophen (Hydrocodone/Apap 10-325mg 1 Each Tab) 1 each PO Q6HR [facility] Last Admin: 10/23/23 12:02 Dose: 1 each Albuterol/Ipratropium (Ipratropium-Albuterol 3 Ml Neb) 3 ml INHALATION RT-Q4H PRN PRN Reason: shortness of breath Albuterol/Ipratropium (Ipratropium-Albuterol 3 Ml Neb) 3 ml INHALATION RT-QID [facility] Last Admin: 10/23/23 11:34 Dose: 3 ml Allopurinol (Allopurinol 100 Mg Tab) 100 mg PO DAILY [facility] Last Admin: 10/23/23 09:36 Dose: 100 mg Aspirin (Aspirin 81 Mg) 81 mg PO DAILY [facility] Last Admin: 10/23/23 09:36 Dose: 81 mg Atorvastatin Calcium (Atorvastatin 20 Mg Tab) 20 mg PO HS [facility] Last Admin: 10/22/23 19:58 Dose: 20 mg Budesonide/Formoterol Fumarate (Symbicort 160-4.5 Mcg Inhaler) 2 puff INHALATION RT-BID [facility] Last Admin: 10/23/23 11:38 Dose: Not Given Famotidine (Famotidine 20 Mg Tab) 10 mg PO BID [facility] Last Admin: 10/23/23 09:35 Dose: 10 mg Gabapentin (Gabapentin 100 Mg Cap) 100 mg PO TID [facility] Last Admin: 10/23/23 09:36 Dose: 100 mg Heparin Sodium (Porcine) (Heparin Sodium,Porcine 5,000 Unit/Ml 1 Ml Vial) 5,000 unit SQ Q8HR [facility] Last Admin: 10/23/23 09:37 Dose: 5,000 unit Piperacillin Sod/Tazobactam (Sod 3.375 gm/ Sodium Chloride) 100 mls @ 25 mls/hr IVPB Q8HR [facility]; Protocol Last Admin: 06/11/24 09:36 Dose: 25 mls/hr Lactulose (Lactulose 20 Gm/30 Ml Cup) 20 gm PO Q12H PRN PRN Reason: Constipation Melatonin (Melatonin 5 Mg Tablet) 5 mg PO HS [facility] Last Admin: 10/22/23 19:58 Dose: 5 mg Miscellaneous Information (Pneumonia Protocol Utilized 1 Each Misc) 1 each PO ONCE PRN PRN Reason: Per Protocol Miscellaneous Information (Pneumonia Protocol Utilized 1 Each Misc) 1 each PO ONCE PRN PRN Reason: Per Protocol Naloxone HCl (Naloxone 0.4 Mg/Ml 1 Ml Vial) 0.2 mg IV Q2M PRN PRN Reason: Opioid Reversal Ondansetron HCl (Ondansetron 4 Mg/2 Ml Vial) 4 mg IVP Q8HR PRN PRN Reason: Nausea And Vomiting Petrolatum (Zinc Oxide Paste (Z-Guard) 1 Applic) 1 applic TOPICAL BID [facility]; Protocol Last Admin: 10/23/23 09:37 Dose: 1 applic Prednisone (Prednisone 10 Mg Tab) 30 mg PO DAILY [facility] Last Admin: 10/23/23 09:36 Dose: 30 mg Tamsulosin HCl (Tamsulosin 0.4 Mg Cap.Er.24h) 0.4 mg PO DAILY [facility] Last Admin: 10/23/23 09:36 Dose: 0.4 mg Thiamine HCl (Thiamine 100 Mg Tab) 100 mg PO DAILY [facility] Last Admin: 10/23/23 09:36 Dose: 100 mg Vancomycin HCl (Vancomycin 125 Mg Capsule) 125 mg PO QID [facility]; Protocol Last Admin: 10/23/23 12:03 Dose: 125 mg Past Medical History Past Medical History: Heart Failure, COPD, Hypertension, Myocardial Infarction (ND), Pulmonary Embolus (PE) Additional Past Medical History / Comment(s): Chronic kidney disease stage III, multiple falls, chronic anemia, coronary artery disease, previous bypass surgery, peripheral vascular disease, hypertension, previous history of pulmonary embolism Last Myocardial Infarction Date:: UNSURE History of Any Multi-Drug Resistant Organisms: None Reported Past Surgical History: Coronary Bypass/CABG, Heart Catheterization With Stent Past Anesthesia/Blood Transfusion Reactions: No Reported Reaction Date of Last Stent Placement:: UNSURE Past Psychological History: No Psychological Hx Reported Smoking Status: Current every day smoker Past Alcohol Use History: Daily Past Drug Use History: None Reported - Past Family History Mother History Unknown: Yes On examination: VITAL SIGNS: 98, 94, 16, 142/78, 94% on 4 L GENERAL APPEARANCE: Reclining in bed HEENT: Normal external appearance of nose and ear. Oral cavity normal EYES: Pupils equal. Conjunctiva normal. NECK: JVD not raised. Mass not palpable. RESPIRATORY: Respiratory effort increased. Decreased breath sounds, especially in the right base. CARDIOVASCULAR: First and second sounds normal. No edema. ABDOMEN: Soft. Liver and spleen not palpable. No tenderness. No mass palpable. PSYCHIATRY: Able to answer simple questions EXTREMITIES: Right lower extremity superficial wounds with surrounding cellulitis l. INVESTIGATIONS, reviewed in the clinical context: C. difficile positive October 21: Potassium 3.8 BUN 48 creatinine 1.98 October 19: Potassium 4.3 BUN 57 creatinine 2.10 2D echocardiogram [October 19, 2023] EF 55 to 60%. Severe pulmonary hypertension. Severe right ventricle and atrial dilatation. October 18: Sodium 140 potassium 3.8 BUN 56 creatinine 2.17 October 16: White count 6 hemoglobin 9.5 platelets 244 potassium 3.6 BUN 53 creatinine 1.90 Influenza type A, type B, RSV, COVID-19: Not detected Urine antigen Legionella antigen: Negative Chest x-ray film personally reviewed by me-right lower lobe infiltrate Assessment: -Right lower lobe pneumonia suspicious for aspiration pneumonia: Better IV ceftriaxone-completed Acute right leg cellulitis, with superficial ulcers on completed IV ceftriaxone. Local care -Acute C. difficile colitis. Patient has been on IV Zosyn Vancomycin 125 mg 4 times daily. Full liquid diet -Acute on chronic CHF, from diastolic dysfunction EF 55 to 60% IV Lasix-changed to oral Lasix then held because of worsening renal function.. Fluid restriction -Large right pleural effusion suspect from CHF, causing hypoxia Ultrasound chest marking done for thoracentesis. Dr. Dale decided to proceed with thoracentesis -Severe secondary pulmonary hypertension -Acute kidney injury ATN likely cardiorenal Follow renal function closely. Lasix held -Acute on chronic hypoxic respiratory failure: Improving 3 L nasal cannula -Coronary artery disease s/p stent and CABG aspirin. Lipitor -Acute UTI secondary to Rooney catheter cultures positive for E. coli/Pseudomonas IV Zosyn -COPD with mild exacerbation Symbicort with DuoNeb. Prednisone -Chronic kidney disease stage III likely nephrosclerosis -PAD aspirin. Lipitor -Full code Changed to full liquid diet. Oral vancomycin.
[2023-10-24 09:02] LABS: African American GFR (CKD) 46 (>60 ml/min/1.73 sqM); Anion Gap 3 mmol/L; Blood Urea Nitrogen 36 mg/dL (9-20); Carbon Dioxide 27 mmol/L (22-30); Chloride 110 mmol/L (98-107); Glucose 99 mg/dL (74-99); Non-African American GFR(CKD) 40 (>60 ml/min/1.73 sqM); Sodium 140 mmol/L (137-145)
--- NOTE | 2023-10-24 11:37 | XR ---
EXAMINATION TYPE: XR chest 1V DATE OF EXAM: 10/24/2023 COMPARISON: 10/22/2023 HISTORY: Shortness of breath TECHNIQUE: Single frontal view of the chest is obtained. FINDINGS: Cardiomegaly with postmedian sternotomy changes. Bilateral consolidation and pleural effus ion with diffuse interstitial pattern. Findings are improved from prior exam. Diffuse osteopenia and arthropathy of the shoulder. Degenerative changes spine. Postmedian sternotomy changes. IMPRESSION: Improving cardiopulmonary findings suggestive of CHF.
--- NOTE | 2023-10-24 12:54 | XR ---
EXAMINATION TYPE: XR chest 1V DATE OF EXAM: 10/24/2023 COMPARISON: 10/24/2023 HISTORY: Post right thoracentesis TECHNIQUE: Single frontal view of the chest is obtained. FINDINGS: Peripheral based density right upper lobe persists. Underlying pulmonary nodule not exclud ed. Tiny bilateral pleural effusions with no sizable pneumothorax. Heart is enlarged and there is marisol rnotomy wires. Underlying COPD and chronic interstitial lung disease suspected. A mild central venous congestion or interstitial pneumonitis in the differential diagnosis. IMPRESSION: 1. No sizable pneumothorax. Peripheral based density in the right upper lobe and tiny bilateral effus ions persist. 2. Mild residual venous congestion in the differential diagnosis.
--- NOTE | 2023-10-24 14:50 | P.PN ---
Subjective Progress Note Date: 10/24/23 Patient is a 72-year-old white male with past medical history significant for COPD, remote history of pulmonary embolism, coronary artery disease with previous bypass surgery, CVA/TIA, heart failure, chronic kidney disease stage III, chronic leg wounds, among many other comorbidities. Patient is a poor historian. He does not know why he is at the hospital. Upon review of ER documentation upon review of ER documentation, patient was sent in from [facility] after the patient was witnessed to choke on his medications and likely aspirated. He was noted to be in some respiratory distress and hypoxic. EMS transfer the patient to [facility] emergency department yesterday evening, and was placed on a 15 L nonrebreather. Chest x-ray showed low lung volumes with right lower lung airspace opacity concerning for aspiration pneumonitis versus atelectasis. Patient was started on a combination of antibiotics including Zosyn, Flagyl, and azithromycin. CBC drawn in the emergency room: WBC count 6.1, hemoglobin 9.1, hematocrit 28.5, platelets 237. CMP on arrival: Sodium 135, potassium 4.1, chloride 106, serum bicarb 21, BUN 48, creatinine 1.86, glucose 96. Lactic 1.4. LFTs not elevated. NT proBNP 13,400. Urinalysis showing nitrates, large leukocyte, and few bacteria. I am evaluating this patient in the emergency department, room 11. Remains on supplemental oxygen, he is on a 50% Ventimask. He is rhonchorous. He is afebrile. Negative for influenza, RSV, COVID. Remaining vital signs are stable. Progress note dated October 17, 2023. This is a 72-year-old male who is seen in room 380. He was seen in consultation by our team, yesterday. He has a history of COPD, pulmonary embolism, coronary disease with previous bypass surgery, CVA, heart failure, chronic kidney d isease, chronic leg wounds, and multiple other medical problems. The patient was apparently at [facility], and had a witnessed choking episode on his medications. The patient apparently was brought to the hospital for further evaluation. The patient was placed on high flow oxygen at 15 L initially. We were asked to see the patient for possible aspiration pneumonia. Clinically, the patient is doing better. He is on saline at 20 cc an hour. He is getting oxygen by nasal cannula at 4 L. Today will go to convert his Solu- Medrol to prednisone 40 mg, and changes budesonide and formoterol to Symbicort 160/4.5, 2 puffs twice a day. He appears not to have any distress. Current labs include a white count 6, hemoglobin 9.5, hematocrit 30.2, platelet count 244,000. Sodium 138, potassium 3.6, chlorides 105, CO2 21, BUN 53, creatinine 1.90. Procalcitonin is mildly elevated at 0.17. Studies for influenza, Legionella, RSV, and coronavirus were all negative. His urine suggest the possibility of a urinary tract infection. There is gram-negative bacilli in his urine. Chest x-ray suggest a right-sided infiltrate, particularly in the lower lobe. The patient is seen today October 18, 2023 in follow-up on the selective care unit. He is currently awake and alert in no acute distress. He is maintaining good O2 saturations in the 90s on 4 L/min per nasal cannula. He is afebrile. Hemodynamically stable. Right foot wound culture positive for gram-negative bacilli. Urine culture positive for gram-negative bacilli. He remains on ceftriaxone. Continued on DuoNeb inhalations Symbicort, prednisone taper. He remains on Lasix 40 mg IV every 12 hours. Heparin for DVT prophylaxis. He is currently in a -700 mL balance. The patient is seen today October 19, 2023 in follow-up on the selective care unit. He remains resting comfortably in bed. Awake and alert in no acute distress. He is maintaining O2 saturations in the 90s on 5 L/min per nasal cannula. No IV fluids. He is continued on DuoNeb inhalations, Symbicort, prednisone taper. Remains on oral diuretics. Antibiotics in the form of ceftriaxone for his E. coli and pseudomonal aeruginosa UTI and right foot infection. The reports are showing E. coli is ESBL and resistant to ceftriaxone. Heparin for DVT prophy laxis. Chest x-ray reveals a small right pleural effusion. Some mild pulmonary vascular congestion. Sodium 140. Potassium 3.8. Bicarb 26. BUN 56. Creatinine 2.17. Glucose 101. He is currently in a positive balance. The patient is seen today October 20, 2023 in follow-up on the selective care unit. He is awake and alert in no acute distress. Resting comfortably in bed. He is maintaining O2 saturation in the 90s on 5 L/min per nasal cannula. He is continue on DuoNeb ventilations, Symbicort, prednisone taper. Heparin for DVT prophylaxis. He remains on Zosyn. VQ scan revealed no evidence for pulmonary embolus. Urine culture was positive for E. coli and Pseudomonas as well as the right foot culture. Sodium 139. Potassium 4.3. Bicarb 27. BUN 57. Creatinine 2.10. The patient is seen today October 21, 2023 in follow-up on the selective care unit. He is currently sitting up in bed. Awake and alert in no acute distress. He is maintaining O2 saturations in the 90s on 4 L/min per nasal cannula. His only complaint today is that of being tired. Urine in his right foot wound both are positive for E. coli and Pseudomonas aeruginosa. He remains on Zosyn. He remains on DuoNeb ventilations, Symbicort, prednisone taper. Heparin for DVT prophylaxis. No new labs today. On today's evaluation of 10/22/2023, the patient is being seen for a follow-up. Patient is doing well. No significant respiratory distress with a pulse ox of 95% on 2 L of oxygen by nasal cannula. A repeat chest x-ray was done and shows cardiomegaly. Small right-sided pleural effusion. Diffuse osteopenia and arthropathy of the shoulder. Degenerative changes of the spine was also seen. The patient is resting comfortably in bed. The patient remains on IV Zosyn. The patient on prednisone burst taper starting with 30 mg p.o. daily. The patient Symbicort as maintenance. No new complaints for now. BUN is 48 with a creatinine 1.9 and a sodium levels at 139 with a potassium of 3.8, serum bicarb is at 25. Procalcitonin level is 0.17. The fluid balance is -600 cc over the past 24 hours. On 10/23/2023, the patient is comfortable in bed on 4 L of oxygen by nasal cannula. The patient was having liquidy diarrhea. Further investigation revealed that the patient was positive for C. difficile colitis and the patient was started on vancomycin 125 mg p.o. 4 times daily. No abdominal pain. Abd ominal distention. No emesis. No nausea. BUN is 48 with a creatinine 1.9 and sodium is at 139. Was approached again by internal medicine regarding thoracentesis of the right lung. Ultrasound markings have been obtained. On 10/24/2023, seen the patient for a follow-up. No specific complaints. No active diarrhea and the patient remains on oral vancomycin. A bedside thoracentesis was done and a total of 950 cc of pleural fluid was aspirated from the right lung. The follow-up chest x-ray showed no evidence of pneumothorax. There is some peripheral base density in the right upper lobe with tiny small pleural effusion, pulm vascular congestion. Nevertheless, the patient is asymptomatic. He remains on oxygen at 3 L with a pulse ox of 99 to 100%. BUN 36 with a creatinine 1.68 and a sodium levels at 140 with a potassium level of 4.0 on the chloride is 110. No chest pain. Mental status seems to be improved and stable for now. Objective - Vital Signs Vital signs: Vital Signs Temp 97.8 F 10/24/23 09:13 Pulse 74 10/24/23 09:13 Resp 16 10/24/23 09:13 BP 170/77 10/24/23 09:13 Pulse Ox 97 10/24/23 09:13 FiO2 35 10/16/23 15:44 Intake & Output 10/23/23 10/24/23 10/24/23 18:59 06:59 18:59 Intake Total 200 Output Total 700 400 Balance -500 -400 Intake: IV 200 Piperacillin-Tazobactam 3 200 .375 gm In Sodium Chloride 0.9% 100 ml @ 25 mls/hr IVPB Q8HR [facility] Rx# :[id number] Output: Urine 700 400 Other: Voiding Method Indwelling Catheter Indwelling Catheter Indwelling Catheter # Bowel Movements 1 - Exam GENERAL EXAM: Alert, 72-year-old male, sitting up in bed, on 2 L nasal cannula, comfortable in no apparent distress. HEAD: Normocephalic and atraumatic EYES: Normal reaction of pupils, equal size. NOSE: Clear with pink turbinates. THROAT: No erythema or exudates. NECK: No masses, no JVD. CHEST: No chest wall deformity. Old sternotomy incisional scar LUNGS: Equal air entry with bilateral rhonchi, worse on the right. No conversational dyspnea or accessory muscle use. CVS: S1 and S2 normal with no audible murmur, regular rhythm. No extra heart sounds ABDOMEN: No hepatosplenomegaly, active bowel sounds, no guarding or rigidity. SPINE: No scoliosis or deformity SKIN: No rashes CENTRAL NERVOUS SYSTEM: Alert, only oriented to self. Follows simple commands. No focal deficits, tone is normal in all 4 extremities. EXTREMITIES: Bilateral lower extremity edema, chronic venous stasis changes, with multiple right lower extremity wounds involving the anterior hurley and foot, with purulent discharge. - Labs CBC & Chem 7: 10/17/23 10:57 10/24/23 07:41 Labs: Abnormal Lab Results - Last 24 Hours (Table) 10/24/23 Range/Units 07:41 Chloride 110 H (98-107) mmol/L BUN 36 H (9-20) mg/dL Creatinine 1.68 H (0.66-1.25) mg/dL Assessment and Plan Plan: Acute hypoxemic respiratory failure, possibly secondary to aspiration and aspiration pneumonitis, patient reportedly had a witnessed aspiration event on his medications at his [facility], chest x-ray on arrival to the emergency department showed low lung volumes with right lower lung airspace opacities concerning for aspiration pneumonia versus atelectasis. Procalcitonin 0.17. VQ scan ruled out pulmonary embolism. The patient was identified to have right-sided pleural eff usion. Thoracentesis was done a total of 950 cc of pleural fluid were aspirated without any complications. Awaiting cultures and cytology. Awaiting also fluid chemistry. C. difficile colitis, started on oral vancomycin. Patient is having liquidy diarrhea. Acute COPD exacerbation, improving Urinary tract infection secondary to E. coli ESBL and Pseudomonas aeruginosa Right foot cellulitis with culture positive for E. coli ESBL and Pseudomonas aeruginosa Acute kidney injury secondary to diuretics, UTI, creatinine is stable History of coronary artery disease with previous coronary artery bypass surgery History of heart failure with preserved ejection fraction, follow-up echocardiogram pending History of peripheral arterial disease Chronic macrocytic anemia Chronic kidney disease stage III Possible UTI History of alcoholism History of CVA/TIA History of hyperlipidemia Remote history of pulmonary embolism, not on any anticoagulation currently Bilateral lower extremity edema Chronic right lower extremity wounds Former tobacco smoker Plan: Oxygenation is slightly worsened currently on 3 L of oxygen nasal cannula, no significant shortness of breath Titrate down the FiO2 as tolerated thoracentesis of the right lung was done today and the pleural fluid chemistry and cytology and cultures are pending and the procedure was done without any complications. Antibiotic adjustments per medicine and infectious disease Continue the current treatment plan Plan is for [facility] at discharge once more stable.
--- NOTE | 2023-10-24 14:51 | P.PCN ---
Date of Procedure: 10/24/23 Operative Findings: Preoperative Diagnosis: Right-sided pleural effusion Postoperative Diagnosis: Right-sided pleural effusion Procedure(s) Performed: Thoracentesis Anesthesia: local Surgeon: Sherwin Dale Estimated Blood Loss (ml): 0 Pathology: other Condition: critical Disposition: ICU Operative Findings: A time out was performed and the chest x-ray was reviewed, the appropriate side was confirmed and marked. My hands were washed immediately prior to the procedure. I wore a surgical cap, mask with protective eyewear, sterile gown and sterile gloves throughout the procedure. The patient was prepped and draped in a sterile manner using chlorhexidine scrub after the appropriate level was percussed and confirmed by ultrasound. 1% lidocaine was used to anesthesize the skin, subcutaneous tissue, superior aspect of the rib periosteum and parietal pleura. A finder needle was then introduced over the superior aspect of the rib to locate the pleural fluid; 2colored fluid was aspirated at a depth of approximately 2 cm. A 10-blade scalpel was used to jorge the skin at the insertion site. The [id number] needle was then introduced through the skin incision into the pleural space using negative aspiration pressure and the red colometric indicator to confirm appropriate positioning of the needle. The thoracentesis catheter was then threaded without difficulty. 950 ml of turbid colored fluid was removed without difficulty. The catheter was then removed. No immediate complications were noted during the procedure. A post-procedure chest x-ray is pending at the time of this note. The fluid will be sent for studies. Estimated blood loss is 0cc
--- NOTE | 2023-10-24 16:16 | P.PN ---
Progress Note - Text Progress Note Date: 10/24/23 History of Present Illness Patient is a pleasant 72 years old male with past medical history of heart failure, COPD, hypertension, pulmonary embolism, chronic kidney disease stage III, multiple falls, chronic anemia previous coronary artery bypass surgery, hypertension. Patient from skilled nursing. At baseline he states he uses 2 to 3 L of oxygen via nasal cannula. Currently he is on 15 L via breathing mask Patient presents because of dyspnea from skilled nursing. Also patient complaining from right leg abnormality. There is superficial ulcers with some discharge. Patient denies chest pain or coughing No abdominal pain vomiting or diarrhea. No urinary complaint. No new headache weakness numbness or dizziness. Patient hemodynamically stable other than hypoxia. WBC is normal at 4.2, hemoglobin 10. Creatinine at baseline 1.8 with baseline 1.5-1.8 Other than that BMP and liver enzymes were unremarkable Influenza A and type B, RSV, SARS (coronavirus) are and detected Urine analysis is abnormal suspicious for infection Chest x-ray showing right lower lobe infiltrate suspicious for pneumonia EKG showing sinus rhythm at [address]-T changes with low voltage Patient already started on Zithromax ceftriaxone and IV Solu-Medrol October 17, 2023: Admitted with pneumonia, right lower extremity superficial wounds and cellulitis. Acute hypoxia. Patient eating his meals. Minimal phlegm. Dressing changes right lower extremity. Has a chronic Rooney. October 18, 2023: Reclining in bed. Breathing better. Had some breakfast. On 4 L nasal cannula. Feels a bit better. Changed over to oral prednisone today. Switch IV Lasix to p.o. Lasix October 18: Breathing okay. Chest x-ray showing significant right-sided pleural effusion. Chest ultrasound: Marking for paracentesis done. Texted Dr. Joshua for the same.-Thoracentesis make a difference to his oxygenation status October 19: Await for Dr. JOSHUA to decide if patient will benefit from thoracentesis. Significant right-sided fluid. On 3 L nasal cannula. Had a good breakfast October 20: Reminded Dr. Joshua to evaluate the need for thoracentesis. Patient otherwise eating well. 92% on 4 L. October 21: This morning on 3 L nasal cannula. Discussed with Dr. Dale. He will do it repeat chest x-ray and then decide about thoracentesis. Patient had a good breakfast. He normally does not like to eat lunch or dinner. Hold discharge until further decision per pulmonary about thoracentesis October 22: Patient pending thoracentesis with Dr. Dale today. Started on vancomycin and patient came back positive for C. difficile. Had numerous stools last night. Changed to full liquid diet October 23: Patient underwent thoracentesis by Dr. Dale. About 950 cc straw- colored fluid removed. Patient had only 1 bowel movement today. No abdominal pain. Spoke to social work therapist Eliana. Looking for authorization for the patient go to rehab. Tolerating full liquid diet. Changed to soft bland At Active Medications Acetaminophen (Acetaminophen Tab 325 Mg Tab) 650 mg PO Q6HR PRN PRN Reason: Mild Pain or Fever > 100.5 Hydrocodone Bitart/Acetaminophen (Hydrocodone/Apap 10-325mg 1 Each Tab) 1 each PO Q6HR [facility] Last Admin: 10/24/23 12:03 Dose: 1 each Albuterol/Ipratropium (Ipratropium-Albuterol 3 Ml Neb) 3 ml INHALATION RT-Q4H PRN PRN Reason: shortness of breath Albuterol/Ipratropium (Ipratropium-Albuterol 3 Ml Neb) 3 ml INHALATION RT-QID [facility] Last Admin: 10/24/23 11:53 Dose: 3 ml Allopurinol (Allopurinol 100 Mg Tab) 100 mg PO DAILY [facility] Last Admin: 10/24/23 09:20 Dose: 100 mg Aspirin (Aspirin 81 Mg) 81 mg PO DAILY [facility] Last Admin: 10/24/23 09:20 Dose: 81 mg Atorvastatin Calcium (Atorvastatin 20 Mg Tab) 20 mg PO HS [facility] Last Admin: 10/23/23 21:21 Dose: 20 mg Budesonide/Formoterol Fumarate (Symbicort 160-4.5 Mcg Inhaler) 2 puff INHALATION RT-BID [facility] Last Admin: 10/24/23 08:59 Dose: 2 puff Famotidine (Famotidine 20 Mg Tab) 10 mg PO BID [facility] Last Admin: 10/24/23 09:19 Dose: 10 mg Gabapentin (Gabapentin 100 Mg Cap) 100 mg PO TID [facility] Last Admin: 10/24/23 15:41 Dose: 100 mg Heparin Sodium (Porcine) (Heparin Sodium,Porcine 5,000 Unit/Ml 1 Ml Vial) 5,000 unit SQ Q8HR [facility] Last Admin: 10/24/23 15:41 Dose: 5,000 unit Piperacillin Sod/Tazobactam (Sod 3.375 gm/ Sodium Chloride) 100 mls @ 25 mls/hr IVPB Q8HR [facility]; Protocol Last Admin: 10/24/23 15:41 Dose: 25 mls/hr Lactulose (Lactulose 20 Gm/30 Ml Cup) 20 gm PO Q12H PRN PRN Reason: Constipation Melatonin (Melatonin 5 Mg Tablet) 5 mg PO HS [facility] Last Admin: 10/23/23 21:21 Dose: 5 mg Miscellaneous Information (Pneumonia Protocol Utilized 1 Each Misc) 1 each PO ONCE PRN PRN Reason: Per Protocol Miscellaneous Information (Pneumonia Protocol Utilized 1 Each Misc) 1 each PO ONCE PRN PRN Reason: Per Protocol Naloxone HCl (Naloxone 0.4 Mg/Ml 1 Ml Vial) 0.2 mg IV Q2M PRN PRN Reason: Opioid Reversal Ondansetron HCl (Ondansetron 4 Mg/2 Ml Vial) 4 mg IVP Q8HR PRN PRN Reason: Nausea And Vomiting Petrolatum (Zinc Oxide Paste (Z-Guard) 1 Applic) 1 applic TOPICAL BID [facility]; Protocol Last Admin: 10/24/23 09:20 Dose: 1 applic Prednisone (Prednisone 10 Mg Tab) 30 mg PO DAILY [facility] Last Admin: 10/24/23 09:20 Dose: 30 mg Tamsulosin HCl (Tamsulosin 0.4 Mg Cap.Er.24h) 0.4 mg PO DAILY [facility] Last Admin: 10/24/23 09:20 Dose: 0.4 mg Thiamine HCl (Thiamine 100 Mg Tab) 100 mg PO DAILY [facility] Last Admin: 10/24/23 09:20 Dose: 100 mg Vancomycin HCl (Vancomycin 125 Mg Capsule) 125 mg PO QID [facility]; Protocol Last Admin: 10/24/23 12:03 Dose: 125 mg Past Medical History Past Medical History: Heart Failure, COPD, Hypertension, Myocardial Infarction ([place]), Pulmonary Embolus (PE) Additional Past Medical History / Comment(s): Chronic kidney disease stage III, multiple falls, chronic anemia, coronary artery disease, previous bypass surgery, peripheral vascular disease, hypertension, previous history of pulmonary embolism Last Myocardial Infarction Date:: UNSURE History of Any Multi-Drug Resistant Organisms: None Reported Past Surgical History: Coronary Bypass/CABG, Heart Catheterization With Stent Past Anesthesia/Blood Transfusion Reactions: No Reported Reaction Date of Last Stent Placement:: UNSURE Past Psychological History: No Psychological Hx Reported Smoking Status: Current every day smoker Past Alcohol Use History: Daily Past Drug Use History: None Reported - Past Family History Mother History Unknown: Yes On examination: VITAL SIGNS: 97.5, 80, 16, 152/85, 97% on 3 L GENERAL APPEARANCE: Reclining in bed HEENT: Normal external appearance of nose and ear. Oral cavity normal EYES: Pupils equal. Conjunctiva normal. NECK: JVD not raised. Mass not palpable. RESPIRATORY: Respiratory effort increased. Decreased breath sounds, especially in the right base. CARDIOVASCULAR: First and second sounds normal. No edema. ABDOMEN: Soft. Liver and spleen not palpable. No tenderness. No mass palpable. PSYCHIATRY: Able to answer simple questions EXTREMITIES: Right lower extremity superficial wounds with surrounding cellulitis l. INVESTIGATIONS, reviewed in the clinical context: October 23: Potassium 4 BUN 36 creatinine 1.68 C. difficile positive October 21: Potassium 3.8 BUN 48 creatinine 1.98 October 19: Potassium 4.3 BUN 57 creatinine 2.10 2D echocardiogram [October 19, 2023] EF 55 to 60%. Severe pulmonary hypertension. Severe right ventricle and atrial dilatation. October 18: Sodium 140 potassium 3.8 BUN 56 creatinine 2.17 October 16: White count 6 hemoglobin 9.5 platelets 244 potassium 3.6 BUN 53 creatinine 1.90 Influenza type A, type B, RSV, COVID-19: Not detected Urine antigen Legionella antigen: Negative Chest x-ray film personally reviewed by me-right lower lobe infiltrate Assessment: -Right lower lobe pneumonia suspicious for aspiration pneumonia: Better IV ceftriaxone-completed Acute right leg cellulitis, with superficial ulcers on completed IV ceftriaxone. Local care -Acute C. difficile colitis. Patient has been on IV Zosyn Vancomycin 125 mg 4 times daily. Changed to soft plan -Acute on chronic CHF, from diastolic dysfunction EF 55 to 60% IV Lasix-changed to oral Lasix then held because of worsening renal function.. Fluid restriction -Large right pleural effusion suspect from CHF, causing hypoxia Ultrasound chest marking done for thoracentesis. Dr. Dale-950 cc straw-colored fluid removed -Severe secondary pulmonary hypertension -Acute kidney injury ATN likely cardiorenal Follow renal function closely. Lasix held -Acute on chronic hypoxic respiratory failure: Improving 3 L nasal cannula -Coronary artery disease s/p stent and CABG aspirin. Lipitor -Acute UTI secondary to Rooney catheter cultures positive for E. coli/Pseudomonas IV Zosyn -COPD with mild exacerbation Symbicort with DuoNeb. Prednisone -Chronic kidney disease stage III likely nephrosclerosis -PAD aspirin. Lipitor -Full code Changed to soft bland diet. Had thoracentesis today. Looking into discharge to rehab
[2023-10-24 18:44] LABS: Appearance,BF Clear (Clear)
[2023-10-24 19:50] LABS: Glucose, BF Source Pleural Fluid; Glucose, Body Fluid 121 mg/dL; LDH, Body Fluid Source Pleural Fluid; T. Protein, Body Fluid Source Pleural Fluid; Total Protein, Body Fluid 2220 mg/dL
[2023-10-25 13:42] VITALS: BMI 30.6
--- NOTE | 2023-10-25 17:52 | P.PN ---
Progress Note - Text Progress Note Date: 10/25/23 History of Present Illness Patient is a pleasant 72 years old male with past medical history of heart failure, COPD, hypertension, pulmonary embolism, chronic kidney disease stage III, multiple falls, chronic anemia previous coronary artery bypass surgery, hypertension. Patient from retirement. At baseline he states he uses 2 to 3 L of oxygen via nasal cannula. Currently he is on 15 L via breathing mask Patient presents because of dyspnea from retirement. Also patient complaining from right leg abnormality. There is superficial ulcers with some discharge. Patient denies chest pain or coughing No abdominal pain vomiting or diarrhea. No urinary complaint. No new headache weakness numbness or dizziness. Patient hemodynamically stable other than hypoxia. WBC is normal at 4.2, hemoglobin 10. Creatinine at baseline 1.8 with baseline 1.5-1.8 Other than that BMP and liver enzymes were unremarkable Influenza A and type B, RSV, SARS (coronavirus) are and detected Urine analysis is abnormal suspicious for infection Chest x-ray showing right lower lobe infiltrate suspicious for pneumonia EKG showing sinus rhythm at [address]-T changes with low voltage Patient already started on Zithromax ceftriaxone and IV Solu-Medrol October 17, 2023: Admitted with pneumonia, right lower extremity superficial wounds and cellulitis. Acute hypoxia. Patient eating his meals. Minimal phlegm. Dressing changes right lower extremity. Has a chronic Rooney. October 18, 2023: Reclining in bed. Breathing better. Had some breakfast. On 4 L nasal cannula. Feels a bit better. Changed over to oral prednisone today. Switch IV Lasix to p.o. Lasix October 18: Breathing okay. Chest x-ray showing significant right-sided pleural effusion. Chest ultrasound: Marking for paracentesis done. Texted Dr. Joshua for the same.-Thoracentesis make a difference to his oxygenation status October 19: Await for Dr. JOSHUA to decide if patient will benefit from thoracentesis. Significant right-sided fluid. On 3 L nasal cannula. Had a good breakfast October 20: Reminded Dr. Joshua to evaluate the need for thoracentesis. Patient otherwise eating well. 92% on 4 L. October 21: This morning on 3 L nasal cannula. Discussed with Dr. Dale. He will do it repeat chest x-ray and then decide about thoracentesis. Patient had a good breakfast. He normally does not like to eat lunch or dinner. Hold discharge until further decision per pulmonary about thoracentesis October 22: Patient pending thoracentesis with Dr. Dale today. Started on vancomycin and patient came back positive for C. difficile. Had numerous stools last night. Changed to full liquid diet October 23: Patient underwent thoracentesis by Dr. Dale. About 950 cc straw- colored fluid removed. Patient had only 1 bowel movement today. No abdominal pain. Spoke to social media developer Eliana. Looking for authorization for the patient go to rehab. Tolerating full liquid diet. Changed to soft bland October 24: Patient doing well on vancomycin. Only 1 bowel movement. No further diarrhea. Titrate down FiO2. Plan to discharge to [facility] Active Medications Acetaminophen (Acetaminophen Tab 325 Mg Tab) 650 mg PO Q6HR PRN PRN Reason: Mild Pain or Fever > 100.5 Hydrocodone Bitart/Acetaminophen (Hydrocodone/Apap 10-325mg 1 Each Tab) 1 each PO Q6HR [facility] Last Admin: 10/25/23 12:18 Dose: 1 each Albuterol/Ipratropium (Ipratropium-Albuterol 3 Ml Neb) 3 ml INHALATION RT-Q4H PRN PRN Reason: shortness of breath Albuterol/Ipratropium (Ipratropium-Albuterol 3 Ml Neb) 3 ml INHALATION RT-QID [facility] Last Admin: 10/25/23 16:20 Dose: 3 ml Allopurinol (Allopurinol 100 Mg Tab) 100 mg PO DAILY [facility] Last Admin: 10/25/23 09:37 Dose: 100 mg Aspirin (Aspirin 81 Mg) 81 mg PO DAILY [facility] Last Admin: 10/25/23 09:36 Dose: 81 mg Atorvastatin Calcium (Atorvastatin 20 Mg Tab) 20 mg PO HS [facility] Last Admin: 10/24/23 20:51 Dose: 20 mg Budesonide/Formoterol Fumarate (Symbicort 160-4.5 Mcg Inhaler) 2 puff INHALATION RT-BID [facility] Last Admin: 10/25/23 08:53 Dose: 2 puff Famotidine (Famotidine 20 Mg Tab) 10 mg PO BID [facility] Last Admin: 10/25/23 09:37 Dose: 10 mg Gabapentin (Gabapentin 100 Mg Cap) 100 mg PO TID [facility] Last Admin: 10/25/23 16:13 Dose: 100 mg Heparin Sodium (Porcine) (Heparin Sodium,Porcine 5,000 Unit/Ml 1 Ml Vial) 5,000 unit SQ Q8HR [facility] Last Admin: 10/25/23 16:15 Dose: 5,000 unit Lactulose (Lactulose 20 Gm/30 Ml Cup) 20 gm PO Q12H PRN PRN Reason: Constipation Melatonin (Melatonin 5 Mg Tablet) 5 mg PO HS [facility] Last Admin: 10/24/23 20:51 Dose: 5 mg Miscellaneous Information (Pneumonia Protocol Utilized 1 Each Misc) 1 each PO ONCE PRN PRN Reason: Per Protocol Miscellaneous Information (Pneumonia Protocol Utilized 1 Each Misc) 1 each PO ONCE PRN PRN Reason: Per Protocol Naloxone HCl (Naloxone 0.4 Mg/Ml 1 Ml Vial) 0.2 mg IV Q2M PRN PRN Reason: Opioid Reversal Ondansetron HCl (Ondansetron 4 Mg/2 Ml Vial) 4 mg IVP Q8HR PRN PRN Reason: Nausea And Vomiting Petrolatum (Zinc Oxide Paste (Z-Guard) 1 Applic) 1 applic TOPICAL BID [facility]; Protocol Last Admin: 10/25/23 09:43 Dose: 1 applic Prednisone (Prednisone 10 Mg Tab) 30 mg PO DAILY [facility] Last Admin: 10/25/23 09:36 Dose: 30 mg Tamsulosin HCl (Tamsulosin 0.4 Mg Cap.Er.24h) 0.4 mg PO DAILY [facility] Last Admin: 10/25/23 09:37 Dose: 0.4 mg Thiamine HCl (Thiamine 100 Mg Tab) 100 mg PO DAILY [facility] Last Admin: 10/25/23 09:36 Dose: 100 mg Vancomycin HCl (Vancomycin 125 Mg Capsule) 125 mg PO QID [facility]; Protocol Last Admin: 10/25/23 12:18 Dose: 125 mg Past Medical History Past Medical History: Heart Failure, COPD, Hypertension, Myocardial Infarction (HI), Pulmonary Embolus (PE) Additional Past Medical History / Comment(s): Chronic kidney disease stage III, multiple falls, chronic anemia, coronary artery disease, previous bypass surgery, peripheral vascular disease, hypertension, previous history of pulmonary embolism Last Myocardial Infarction Date:: UNSURE History of Any Multi-Drug Resistant Organisms: None Reported Past Surgical History: Coronary Bypass/CABG, Heart Catheterization With Stent Past Anesthesia/Blood Transfusion Reactions: No Reported Reaction Date of Last Stent Placement:: UNSURE Past Psychological History: No Psychological Hx Reported Smoking Status: Current every day smoker Past Alcohol Use History: Daily Past Drug Use History: None Reported - Past Family History Mother History Unknown: Yes On examination: VITAL SIGNS: 0.3, 69, 19, 150 x 79, 100% 4 L GENERAL APPEARANCE: Sitting up in bed, comfortable HEENT: Normal external appearance of nose and ear. Oral cavity normal EYES: Pupils equal. Conjunctiva normal. NECK: JVD not raised. Mass not palpable. RESPIRATORY: Respiratory effort normal. Decreased breath sounds, CARDIOVASCULAR: First and second sounds normal. No edema. ABDOMEN: Soft. Liver and spleen not palpable. No tenderness. No mass palpable. PSYCHIATRY: able to hold a simple conversation EXTREMITIES: Right lower extremity superficial wounds with surrounding cellulitis l. INVESTIGATIONS, reviewed in the clinical context: October 23: Potassium 4 BUN 36 creatinine 1.68 C. difficile positive October 21: Potassium 3.8 BUN 48 creatinine 1.98 October 19: Potassium 4.3 BUN 57 creatinine 2.10 2D echocardiogram [October 19, 2023] EF 55 to 60%. Severe pulmonary hypertension. Severe right ventricle and atrial dilatation. October 18: Sodium 140 potassium 3.8 BUN 56 creatinine 2.17 October 16: White count 6 hemoglobin 9.5 platelets 244 potassium 3.6 BUN 53 creatinine 1.90 Influenza type A, type B, RSV, COVID-19: Not detected Urine antigen Legionella antigen: Negative Chest x-ray film personally reviewed by me-right lower lobe infiltrate Assessment: -Right lower lobe pneumonia suspicious for aspiration pneumonia: Better IV ceftriaxone-completed Acute right leg cellulitis, with superficial ulcers on completed IV ceftriaxone-completed. Local care -Acute C. difficile colitis. Patient has been on IV Zosyn: Improved Vancomycin 125 mg 4 times daily. On a soft diet -Acute on chronic CHF, from diastolic dysfunction EF 55 to 60% IV Lasix-changed to oral Lasix then held because of worsening renal function.. Fluid restriction -Large right pleural effusion suspect from CHF, causing hypoxia Ultrasound chest marking done for thoracentesis. Dr. Dale-950 cc straw-colored fluid removed -Severe secondary pulmonary hypertension -Acute kidney injury ATN likely cardiorenal: Improving Follow renal function closely. Lasix held -Acute on chronic hypoxic respiratory failure: Improving 3 L nasal cannula -Coronary artery disease s/p stent and CABG aspirin. Lipitor -Acute UTI secondary to Rooney catheter cultures positive for E. coli/Pseudomonas IV Zosyn-completed course -COPD with mild exacerbation Symbicort with DuoNeb. Prednisone -Chronic kidney disease stage III likely nephrosclerosis -PAD aspirin. Lipitor -Full code Doing much better. Titrate down FiO2. DC IV Zosyn. Plan for discharge to ECF tomorrow
[2023-10-25 23:06] VITALS: TEMP 97.8
--- NOTE | 2023-10-25 23:06 | P.PN ---
Subjective Progress Note Date: 10/25/23 Patient is a 72-year-old white male with past medical history significant for COPD, remote history of pulmonary embolism, coronary artery disease with previous bypass surgery, CVA/TIA, heart failure, chronic kidney disease stage III, chronic leg wounds, among many other comorbidities. Patient is a poor historian. He does not know why he is at the hospital. Upon review of ER documentation upon review of ER documentation, patient was sent in from [facility] after the patient was witnessed to choke on his medications and likely aspirated. He was noted to be in some respiratory distress and hypoxic. EMS transfer the patient to [facility] emergency department yesterday evening, and was placed on a 15 L nonrebreather. Chest x-ray showed low lung volumes with right lower lung airspace opacity concerning for aspiration pneumonitis versus atelectasis. Patient was started on a combination of antibiotics including Zosyn, Flagyl, and azithromycin. CBC drawn in the emergency room: WBC count 6.1, hemoglobin 9.1, hematocrit 28.5, platelets 237. CMP on arrival: Sodium 135, potassium 4.1, chloride 106, serum bicarb 21, BUN 48, creatinine 1.86, glucose 96. Lactic 1.4. LFTs not elevated. NT proBNP 13,400. Urinalysis showing nitrates, large leukocyte, and few bacteria. I am evaluating this patient in the emergency department, room 11. Remains on supplemental oxygen, he is on a 50% Ventimask. He is rhonchorous. He is afebrile. Negative for influenza, RSV, COVID. Remaining vital signs are stable. Progress note dated October 17, 2023. This is a 72-year-old male who is seen in room 380. He was seen in consultation by our team, yesterday. He has a history of COPD, pulmonary embolism, coronary disease with previous bypass surgery, CVA, heart failure, chronic kidney d isease, chronic leg wounds, and multiple other medical problems. The patient was apparently at [facility], and had a witnessed choking episode on his medications. The patient apparently was brought to the hospital for further evaluation. The patient was placed on high flow oxygen at 15 L initially. We were asked to see the patient for possible aspiration pneumonia. Clinically, the patient is doing better. He is on saline at 20 cc an hour. He is getting oxygen by nasal cannula at 4 L. Today will go to convert his Solu- Medrol to prednisone 40 mg, and changes budesonide and formoterol to Symbicort 160/4.5, 2 puffs twice a day. He appears not to have any distress. Current labs include a white count 6, hemoglobin 9.5, hematocrit 30.2, platelet count 244,000. Sodium 138, potassium 3.6, chlorides 105, CO2 21, BUN 53, creatinine 1.90. Procalcitonin is mildly elevated at 0.17. Studies for influenza, Legionella, RSV, and coronavirus were all negative. His urine suggest the possibility of a urinary tract infection. There is gram-negative bacilli in his urine. Chest x-ray suggest a right-sided infiltrate, particularly in the lower lobe. The patient is seen today October 18, 2023 in follow-up on the selective care unit. He is currently awake and alert in no acute distress. He is maintaining good O2 saturations in the 90s on 4 L/min per nasal cannula. He is afebrile. Hemodynamically stable. Right foot wound culture positive for gram-negative bacilli. Urine culture positive for gram-negative bacilli. He remains on ceftriaxone. Continued on DuoNeb inhalations Symbicort, prednisone taper. He remains on Lasix 40 mg IV every 12 hours. Heparin for DVT prophylaxis. He is currently in a -700 mL balance. The patient is seen today October 19, 2023 in follow-up on the selective care unit. He remains resting comfortably in bed. Awake and alert in no acute distress. He is maintaining O2 saturations in the 90s on 5 L/min per nasal cannula. No IV fluids. He is continued on DuoNeb inhalations, Symbicort, prednisone taper. Remains on oral diuretics. Antibiotics in the form of ceftriaxone for his E. coli and pseudomonal aeruginosa UTI and right foot infection. The reports are showing E. coli is ESBL and resistant to ceftriaxone. Heparin for DVT prophy laxis. Chest x-ray reveals a small right pleural effusion. Some mild pulmonary vascular congestion. Sodium 140. Potassium 3.8. Bicarb 26. BUN 56. Creatinine 2.17. Glucose 101. He is currently in a positive balance. The patient is seen today October 20, 2023 in follow-up on the selective care unit. He is awake and alert in no acute distress. Resting comfortably in bed. He is maintaining O2 saturation in the 90s on 5 L/min per nasal cannula. He is continue on DuoNeb ventilations, Symbicort, prednisone taper. Heparin for DVT prophylaxis. He remains on Zosyn. VQ scan revealed no evidence for pulmonary embolus. Urine culture was positive for E. coli and Pseudomonas as well as the right foot culture. Sodium 139. Potassium 4.3. Bicarb 27. BUN 57. Creatinine 2.10. The patient is seen today October 21, 2023 in follow-up on the selective care unit. He is currently sitting up in bed. Awake and alert in no acute distress. He is maintaining O2 saturations in the 90s on 4 L/min per nasal cannula. His only complaint today is that of being tired. Urine in his right foot wound both are positive for E. coli and Pseudomonas aeruginosa. He remains on Zosyn. He remains on DuoNeb ventilations, Symbicort, prednisone taper. Heparin for DVT prophylaxis. No new labs today. On today's evaluation of 10/22/2023, the patient is being seen for a follow-up. Patient is doing well. No significant respiratory distress with a pulse ox of 95% on 2 L of oxygen by nasal cannula. A repeat chest x-ray was done and shows cardiomegaly. Small right-sided pleural effusion. Diffuse osteopenia and arthropathy of the shoulder. Degenerative changes of the spine was also seen. The patient is resting comfortably in bed. The patient remains on IV Zosyn. The patient on prednisone burst taper starting with 30 mg p.o. daily. The patient Symbicort as maintenance. No new complaints for now. BUN is 48 with a creatinine 1.9 and a sodium levels at 139 with a potassium of 3.8, serum bicarb is at 25. Procalcitonin level is 0.17. The fluid balance is -600 cc over the past 24 hours. On 10/23/2023, the patient is comfortable in bed on 4 L of oxygen by nasal cannula. The patient was having liquidy diarrhea. Further investigation revealed that the patient was positive for C. difficile colitis and the patient was started on vancomycin 125 mg p.o. 4 times daily. No abdominal pain. Abd ominal distention. No emesis. No nausea. BUN is 48 with a creatinine 1.9 and sodium is at 139. Was approached again by internal medicine regarding thoracentesis of the right lung. Ultrasound markings have been obtained. On 10/24/2023, seen the patient for a follow-up. No specific complaints. No active diarrhea and the patient remains on oral vancomycin. A bedside thoracentesis was done and a total of 950 cc of pleural fluid was aspirated from the right lung. The follow-up chest x-ray showed no evidence of pneumothorax. There is some peripheral base density in the right upper lobe with tiny small pleural effusion, pulm vascular congestion. Nevertheless, the patient is asymptomatic. He remains on oxygen at 3 L with a pulse ox of 99 to 100%. BUN 36 with a creatinine 1.68 and a sodium levels at 140 with a potassium level of 4.0 on the chloride is 110. No chest pain. Mental status seems to be improved and stable for now. On 10/25/2023, the patient is doing well and has no specific complaints. Breathing comfortably. Thoracentesis was done and the fluid is a transudate based on the LDH and protein criteria. No respiratory distress for now. Patient remains on oral vancomycin regarding history of colitis. No altered mentation. No nausea vomiting or abdominal pain. No chest pain. No other significant events overnight. The patient is doing well. The patient has only 1 bowel movement since yesterday. The plan is to move this patient ultimately to ECF. Objective - Vital Signs Vital signs: Vital Signs Temp 97.7 F 10/24/23 20:00 Pulse 66 10/25/23 09:09 Resp 16 10/25/23 04:00 BP 136/73 10/25/23 04:00 Pulse Ox 96 10/25/23 08:57 FiO2 35 10/16/23 15:44 Intake & Output 10/24/23 10/25/23 10/25/23 18:59 06:59 18:59 Intake Total 1620 281 Output Total 350 350 Balance 1270 -350 281 Intake: Oral 1620 281 Output: Urine 350 350 Other: Voiding Method Indwelling Catheter Indwelling Catheter # Bowel Movements 1 - Exam GENERAL EXAM: Alert, 72-year-old male, sitting up in bed, on 2 L nasal cannula, comfortable in no apparent distress. HEAD: Normocephalic and atraumatic EYES: Normal reaction of pupils, equal size. NOSE: Clear with pink turbinates. THROAT: No erythema or exudates. NECK: No masses, no JVD. CHEST: No chest wall deformity. Old sternotomy incisional scar LUNGS: Equal air entry with bilateral rhonchi, worse on the right. No conversational dyspnea or accessory muscle use. CVS: S1 and S2 normal with no audible murmur, regular rhythm. No extra heart sounds ABDOMEN: No hepatosplenomegaly, active bowel sounds, no guarding or rigidity. SPINE: No scoliosis or deformity SKIN: No rashes CENTRAL NERVOUS SYSTEM: Alert, only oriented to self. Follows simple commands. No focal deficits, tone is normal in all 4 extremities. EXTREMITIES: Bilateral lower extremity edema, chronic venous stasis changes, with multiple right lower extremity wounds involving the anterior hurley and foot, with purulent discharge. - Labs CBC & Chem 7: 10/17/23 10:57 10/24/23 07:41 Labs: Microbiology - Last 24 Hours (Table) 10/24/23 13:15 Gram Stain - Preliminary Pleural Fluid Assessment and Plan Plan: Acute hypoxemic respiratory failure, possibly secondary to aspiration and aspiration pneumonitis, patient reportedly had a witnessed aspiration event on his medications at his ECF, chest x-ray on arrival to the emergency department showed low lung volumes with right lower lung airspace opacities concerning for aspiration pneumonia versus atelectasis. Procalcitonin 0.17. VQ scan ruled out pulmonary embolism. The patient was identified to have right-sided pleural e ffusion. Thoracentesis was done a total of 950 cc of pleural fluid were aspirated without any complications. Awaiting cultures and cytology. The fluid chemistry is consistent with transudate with low LDH and low protein. No signs of any significant respiratory distress. Currently on 4 L of O2 nasal cannula. C. difficile colitis, started on oral vancomycin. Patient is having liquidy diarrhea. Clinically improving and the patient had only 1 bowel movement since yesterday patient remains on vancomycin. Acute COPD exacerbation, improving Urinary tract infection secondary to E. coli ESBL and Pseudomonas aeruginosa Right foot cellulitis with culture positive for E. coli ESBL and Pseudomonas aeruginosa Acute kidney injury secondary to diuretics, UTI, creatinine is stable History of coronary artery disease with previous coronary artery bypass surgery History of heart failure with preserved ejection fraction, follow-up echocardiogram pending History of peripheral arterial disease Chronic macrocytic anemia Chronic kidney disease stage III Possible UTI History of alcoholism History of CVA/TIA History of hyperlipidemia Remote history of pulmonary embolism, not on any anticoagulation currently Bilateral lower extremity edema Chronic right lower extremity wounds Former tobacco smoker Plan: Oxygenation is slightly worsened currently on 3-4 L of oxygen nasal cannula, no significant shortness of breath Titrate down the FiO2 as tolerated thoracentesis of the right lung was done, fluid is a transudate Completed the course of antibiotics and the patient is currently on p.o. vancomycin Continue the current treatment plan Plan is for [facility] at discharge once more stable.
[2023-10-26 08:46] VITALS: BP 143/81; RESP 16
[2023-10-26] MEDS: predniSONE 20 MG TAB PO SCH (08:46)
[2023-10-26 09:26] VITALS: PULSE 76
--- NOTE | 2023-10-26 11:38 | P.DS ---
Providers Date of admission: 10/15/23 18:26 Expected date of discharge: 10/26/23 Attending physician: Crow Tam Consults: 10/15/23 18:21 Consult Physician Routine Consulting Provider: Gene Joshua Consult Reason/Comments: copd, hypoxia, aspiration pneumonia Do you want consulting provider notified?: Yes Primary care physician: [facility] Course: History of Present Illness Patient is a pleasant 72 years old male with past medical history of heart failure, COPD, hypertension, pulmonary embolism, chronic kidney disease stage III, multiple falls, chronic anemia previous coronary artery bypass surgery, hypertension. Patient from long term. At baseline he states he uses 2 to 3 L of oxygen via nasal cannula. Currently he is on 15 L via breathing mask Patient presents because of dyspnea from long term. Also patient complaining from right leg abnormality. There is superficial ulcers with some discharge. Patient denies chest pain or coughing No abdominal pain vomiting or diarrhea. No urinary complaint. No new headache weakness numbness or dizziness. Patient hemodynamically stable other than hypoxia. WBC is normal at 4.2, hemoglobin 10. Creatinine at baseline 1.8 with baseline 1.5-1.8 Other than that BMP and liver enzymes were unremarkable Influenza A and type B, RSV, SARS (coronavirus) are and detected Urine analysis is abnormal suspicious for infection Chest x-ray showing right lower lobe infiltrate suspicious for pneumonia EKG showing sinus rhythm at [address]-T changes with low voltage Patient already started on Zithromax ceftriaxone and IV Solu-Medrol October 17, 2023: Admitted with pneumonia, right lower extremity superficial wounds and cellulitis. Acute hypoxia. Patient eating his meals. Minimal phlegm. Dressing changes right lower extremity. Has a chronic Rooney. October 18, 2023: Reclining in bed. Breathing better. Had some breakfast. On 4 L nasal cannula. Feels a bit better. Changed over to oral prednisone today. Switch IV Lasix to p.o. Lasix October 18: Breathing okay. Chest x-ray showing significant right-sided pleural effusion. Chest ultrasound: Marking for paracentesis done. Texted Dr. Joshua for the same.-Thoracentesis make a difference to his oxygenation status October 19: Await for Dr. JOSHUA to decide if patient will benefit from thoracentesis. Significant right-sided fluid. On 3 L nasal cannula. Had a good breakfast October 20: Reminded Dr. Joshua to evaluate the need for thoracentesis. Patient otherwise eating well. 92% on 4 L. October 21: This morning on 3 L nasal cannula. Discussed with Dr. Dale. He will do it repeat chest x-ray and then decide about thoracentesis. Patient had a good breakfast. He normally does not like to eat lunch or dinner. Hold discharge until further decision per pulmonary about thoracentesis October 22: Patient pending thoracentesis with Dr. Dale today. Started on vancomycin and patient came back positive for C. difficile. Had numerous stools last night. Changed to full liquid diet October 23: Patient underwent thoracentesis by Dr. Dale. About 950 cc straw- colored fluid removed. Patient had only 1 bowel movement today. No abdominal pain. Spoke to social service coordinator Eliana. Looking for authorization for the patient go to rehab. Tolerating full liquid diet. Changed to soft bland October 24: Patient doing well on vancomycin. Only 1 bowel movement. No further diarrhea. Titrate down FiO2. Plan to discharge to ECF October 25: Patient on 2 to 3 L nasal cannula. Use incentive spirometry. Change Lasix to every other day. Discharge to ECF. Eating well. Complete a course of vancomycin. He will follow-up at the wound care center. Dr. Dale. Discussion and discharge planning more than 35 minutes Past Medical History Past Medical History: Heart Failure, COPD, Hypertension, Myocardial Infarction ([place]), Pulmonary Embolus ([place]) Additional Past Medical History / Comment(s): Chronic kidney disease stage III, multiple falls, chronic anemia, coronary artery disease, previous bypass surgery, peripheral vascular disease, hypertension, previous history of pulmonary embolism Last Myocardial Infarction Date:: UNSURE History of Any Multi-Drug Resistant Organisms: None Reported Past Surgical History: Coronary Bypass/CABG, Heart Catheterization With Stent Past Anesthesia/Blood Transfusion Reactions: No Reported Reaction Date of Last Stent Placement:: UNSURE Past Psychological History: No Psychological Hx Reported Smoking Status: Current every day smoker Past Alcohol Use History: Daily Past Drug Use History: None Reported - Past Family History Mother History Unknown: Yes On examination: VITAL SIGNS:97.8, 84, 16, 143/81, 96% on 2 L GENERAL APPEARANCE: Sitting up in bed, comfortable HEENT: Normal external appearance of nose and ear. Oral cavity normal EYES: Pupils equal. Conjunctiva normal. NECK: JVD not raised. Mass not palpable. RESPIRATORY: Respiratory effort normal. Decreased breath sounds, CARDIOVASCULAR: First and second sounds normal. No edema. ABDOMEN: Soft. Liver and spleen not palpable. No tenderness. No mass palpable. PSYCHIATRY: able to hold a simple conversation EXTREMITIES: Right lower extremity superficial wounds with surrounding cellulitis l. INVESTIGATIONS, reviewed in the clinical context: October 23: Potassium 4 BUN 36 creatinine 1.68 C. difficile positive October 21: Potassium 3.8 BUN 48 creatinine 1.98 October 19: Potassium 4.3 BUN 57 creatinine 2.10 2D echocardiogram [October 19, 2023] EF 55 to 60%. Severe pulmonary hypertension. Severe right ventricle and atrial dilatation. October 18: Sodium 140 potassium 3.8 BUN 56 creatinine 2.17 October 16: White count 6 hemoglobin 9.5 platelets 244 potassium 3.6 BUN 53 creatinine 1.90 Influenza type A, type B, RSV, COVID-19: Not detected Urine antigen Legionella antigen: Negative Chest x-ray film personally reviewed by me-right lower lobe infiltrate Assessment: -Right lower lobe pneumonia suspicious for aspiration pneumonia: Better IV ceftriaxone-completed Acute right leg cellulitis, with superficial ulcers on completed IV ceftriaxone-completed. Local care -Acute C. difficile colitis. Patient has been on IV Zosyn: Improved Vancomycin 125 mg 4 times daily.-7 more days -Acute on chronic CHF, from diastolic dysfunction EF 55 to 60% IV Lasix-changed to oral Lasix then held because of worsening renal function.. Fluid restriction Lasix 40 mg alternate day -Large right pleural effusion suspect from CHF, causing hypoxia Ultrasound chest marking done for thoracentesis. Dr. Dale-950 cc straw-colored fluid removed Follow-up Dr. Dale outpatient -Severe secondary pulmonary hypertension -Acute kidney injury ATN likely cardiorenal: Improving Follow renal function closely. Lasix held temporarily -Acute on chronic hypoxic respiratory failure: Improving 3 L nasal cannula -Coronary artery disease s/p stent and CABG aspirin. Lipitor -Acute UTI secondary to Rooney catheter cultures positive for E. coli/Pseudomonas IV Zosyn-completed course -COPD with mild exacerbation Symbicort with DuoNeb. Prednisone -Chronic kidney disease stage III likely nephrosclerosis -PAD aspirin. Lipitor -Full code Disposition: Rehab at [facility] Plan - Discharge Summary New Discharge Prescriptions: New Aspirin 81 mg PO DAILY tab Vancomycin Oral Solution [Vancomycin HCl Oral Soln] 125 mg PO Q6HR 7 Days ml Famotidine [Pepcid] 10 mg PO BID tab Budesonide-Formot 160-4.5 Mcg [Symbicort 160-4.5 Mcg Inhaler] 2 puff INHALATION RT-BID each Continue Simvastatin 40 mg PO HS Lactulose [Constulose] 20 gm PO Q12H PRN PRN Reason: Constipation Budesonide [Pulmicort] 0.5 mg INHALATION RT-BID Melatonin 5 mg PO HS allopurinoL 100 mg PO DAILY Ipratropium-Albuterol Nebulize [Duoneb 0.5 mg-3 mg/3 ml Soln] 3 ml INHALATION RT-Q6H PRN PRN Reason: Shortness Of Breath Or Wheezing Gabapentin [Neurontin] 100 mg PO TID #9 cap Thiamine [Vitamin B-1] 100 mg PO DAILY Prostat 30 ml PO BID Tamsulosin HCl [Flomax] 0.4 mg PO DAILY Montelukast [Singulair] 10 mg PO HS HYDROcodone/APAP 10-325MG [[place] 10-325] 1 tab PO Q6H #12 tab Changed Furosemide [Lasix] 40 mg PO Q48H #0 tab Discharge Medication List Simvastatin 40 mg PO HS 09/05/19 [History] Budesonide [Pulmicort] 0.5 mg INHALATION RT-BID 10/15/23 [History] Ipratropium-Albuterol Nebulize [Duoneb 0.5 mg-3 mg/3 ml Soln] 3 ml INHALATION RT-Q6H PRN 10/15/23 [History] Lactulose [Constulose] 20 gm PO Q12H PRN 10/15/23 [History] Melatonin 5 mg PO HS 10/15/23 [History] Montelukast [Singulair] 10 mg PO HS 10/15/23 [History] Prostat 30 ml PO BID 10/15/23 [History] Tamsulosin HCl [Flomax] 0.4 mg PO DAILY 10/15/23 [History] Thiamine [Vitamin B-1] 100 mg PO DAILY 10/15/23 [History] allopurinoL 100 mg PO DAILY 10/15/23 [History] Aspirin 81 mg PO DAILY tab 10/22/23 [Rx] Budesonide-Formot 160-4.5 Mcg [Symbicort 160-4.5 Mcg Inhaler] 2 puff INHALATION RT-BID each 10/22/23 [Rx] Famotidine [Pepcid] 10 mg PO BID tab 10/22/23 [Rx] Gabapentin [Neurontin] 100 mg PO TID #9 cap 10/22/23 [Rx] HYDROcodone/APAP 10-325MG [Phoenix 10-325] 1 tab PO Q6H #12 tab 10/22/23 [Rx] Furosemide [Lasix] 40 mg PO Q48H #0 tab 10/26/23 [Rx] Vancomycin Oral Solution [Vancomycin HCl Oral Soln] 125 mg PO Q6HR 7 Days ml 10/26/23 [Rx] Follow up Appointment(s)/Referral(s): Wade Baker DO [Primary Care Provider] - 1-2 days [facility] [NON-STAFF] - 10 Days
--- NOTE | 2023-10-26 16:30 | P.PN ---
Subjective Progress Note Date: 10/26/23 Patient is a 72-year-old white male with past medical history significant for COPD, remote history of pulmonary embolism, coronary artery disease with previous bypass surgery, CVA/TIA, heart failure, chronic kidney disease stage III, chronic leg wounds, among many other comorbidities. Patient is a poor historian. He does not know why he is at the hospital. Upon review of ER documentation upon review of ER documentation, patient was sent in from [facility] after the patient was witnessed to choke on his medications and likely aspirated. He was noted to be in some respiratory distress and hypoxic. EMS transfer the patient to [facility] emergency department yesterday evening, and was placed on a 15 L nonrebreather. Chest x-ray showed low lung volumes with right lower lung airspace opacity concerning for aspiration pneumonitis versus atelectasis. Patient was started on a combination of antibiotics including Zosyn, Flagyl, and azithromycin. CBC drawn in the emergency room: WBC count 6.1, hemoglobin 9.1, hematocrit 28.5, platelets 237. CMP on arrival: Sodium 135, potassium 4.1, chloride 106, serum bicarb 21, BUN 48, creatinine 1.86, glucose 96. Lactic 1.4. LFTs not elevated. NT proBNP 13,400. Urinalysis showing nitrates, large leukocyte, and few bacteria. I am evaluating this patient in the emergency department, room 11. Remains on supplemental oxygen, he is on a 50% Ventimask. He is rhonchorous. He is afebrile. Negative for influenza, RSV, COVID. Remaining vital signs are stable. Progress note dated October 17, 2023. This is a 72-year-old male who is seen in room 380. He was seen in consultation by our team, yesterday. He has a history of COPD, pulmonary embolism, coronary disease with previous bypass surgery, CVA, heart failure, chronic kidney d isease, chronic leg wounds, and multiple other medical problems. The patient was apparently at [facility], and had a witnessed choking episode on his medications. The patient apparently was brought to the hospital for further evaluation. The patient was placed on high flow oxygen at 15 L initially. We were asked to see the patient for possible aspiration pneumonia. Clinically, the patient is doing better. He is on saline at 20 cc an hour. He is getting oxygen by nasal cannula at 4 L. Today will go to convert his Solu- Medrol to prednisone 40 mg, and changes budesonide and formoterol to Symbicort 160/4.5, 2 puffs twice a day. He appears not to have any distress. Current labs include a white count 6, hemoglobin 9.5, hematocrit 30.2, platelet count 244,000. Sodium 138, potassium 3.6, chlorides 105, CO2 21, BUN 53, creatinine 1.90. Procalcitonin is mildly elevated at 0.17. Studies for influenza, Legionella, RSV, and coronavirus were all negative. His urine suggest the possibility of a urinary tract infection. There is gram-negative bacilli in his urine. Chest x-ray suggest a right-sided infiltrate, particularly in the lower lobe. The patient is seen today October 18, 2023 in follow-up on the selective care unit. He is currently awake and alert in no acute distress. He is maintaining good O2 saturations in the 90s on 4 L/min per nasal cannula. He is afebrile. Hemodynamically stable. Right foot wound culture positive for gram-negative bacilli. Urine culture positive for gram-negative bacilli. He remains on ceftriaxone. Continued on DuoNeb inhalations Symbicort, prednisone taper. He remains on Lasix 40 mg IV every 12 hours. Heparin for DVT prophylaxis. He is currently in a -700 mL balance. The patient is seen today October 19, 2023 in follow-up on the selective care unit. He remains resting comfortably in bed. Awake and alert in no acute distress. He is maintaining O2 saturations in the 90s on 5 L/min per nasal cannula. No IV fluids. He is continued on DuoNeb inhalations, Symbicort, prednisone taper. Remains on oral diuretics. Antibiotics in the form of ceftriaxone for his E. coli and pseudomonal aeruginosa UTI and right foot infection. The reports are showing E. coli is ESBL and resistant to ceftriaxone. Heparin for DVT prophy laxis. Chest x-ray reveals a small right pleural effusion. Some mild pulmonary vascular congestion. Sodium 140. Potassium 3.8. Bicarb 26. BUN 56. Creatinine 2.17. Glucose 101. He is currently in a positive balance. The patient is seen today October 20, 2023 in follow-up on the selective care unit. He is awake and alert in no acute distress. Resting comfortably in bed. He is maintaining O2 saturation in the 90s on 5 L/min per nasal cannula. He is continue on DuoNeb ventilations, Symbicort, prednisone taper. Heparin for DVT prophylaxis. He remains on Zosyn. VQ scan revealed no evidence for pulmonary embolus. Urine culture was positive for E. coli and Pseudomonas as well as the right foot culture. Sodium 139. Potassium 4.3. Bicarb 27. BUN 57. Creatinine 2.10. The patient is seen today October 21, 2023 in follow-up on the selective care unit. He is currently sitting up in bed. Awake and alert in no acute distress. He is maintaining O2 saturations in the 90s on 4 L/min per nasal cannula. His only complaint today is that of being tired. Urine in his right foot wound both are positive for E. coli and Pseudomonas aeruginosa. He remains on Zosyn. He remains on DuoNeb ventilations, Symbicort, prednisone taper. Heparin for DVT prophylaxis. No new labs today. On today's evaluation of 10/22/2023, the patient is being seen for a follow-up. Patient is doing well. No significant respiratory distress with a pulse ox of 95% on 2 L of oxygen by nasal cannula. A repeat chest x-ray was done and shows cardiomegaly. Small right-sided pleural effusion. Diffuse osteopenia and arthropathy of the shoulder. Degenerative changes of the spine was also seen. The patient is resting comfortably in bed. The patient remains on IV Zosyn. The patient on prednisone burst taper starting with 30 mg p.o. daily. The patient Symbicort as maintenance. No new complaints for now. BUN is 48 with a creatinine 1.9 and a sodium levels at 139 with a potassium of 3.8, serum bicarb is at 25. Procalcitonin level is 0.17. The fluid balance is -600 cc over the past 24 hours. On 10/23/2023, the patient is comfortable in bed on 4 L of oxygen by nasal cannula. The patient was having liquidy diarrhea. Further investigation revealed that the patient was positive for C. difficile colitis and the patient was started on vancomycin 125 mg p.o. 4 times daily. No abdominal pain. Abd ominal distention. No emesis. No nausea. BUN is 48 with a creatinine 1.9 and sodium is at 139. Was approached again by internal medicine regarding thoracentesis of the right lung. Ultrasound markings have been obtained. On 10/24/2023, seen the patient for a follow-up. No specific complaints. No active diarrhea and the patient remains on oral vancomycin. A bedside thoracentesis was done and a total of 950 cc of pleural fluid was aspirated from the right lung. The follow-up chest x-ray showed no evidence of pneumothorax. There is some peripheral base density in the right upper lobe with tiny small pleural effusion, pulm vascular congestion. Nevertheless, the patient is asymptomatic. He remains on oxygen at 3 L with a pulse ox of 99 to 100%. BUN 36 with a creatinine 1.68 and a sodium levels at 140 with a potassium level of 4.0 on the chloride is 110. No chest pain. Mental status seems to be improved and stable for now. On 10/25/2023, the patient is doing well and has no specific complaints. Breathing comfortably. Thoracentesis was done and the fluid is a transudate based on the LDH and protein criteria. No respiratory distress for now. Patient remains on oral vancomycin regarding history of colitis. No altered mentation. No nausea vomiting or abdominal pain. No chest pain. No other significant events overnight. The patient is doing well. The patient has only 1 bowel movement since yesterday. The plan is to move this patient ultimately to ECF. 10/26/2023, the patient is being seen for a follow-up. The patient is doing well. No specific complaints. He is currently on oxygen 2 L/min nasal cannula. No respiratory difficulties. No active diarrhea and the plan is to discharge this patient to ECF. This discharge will be done today. Meanwhile, the pleural fluid cytology still pending for now. Note that he is not having any issues with diarrhea. The electrolytes are essentially stable from few days back. Pleural fluid was checked and it was essentially consistent with a transudate. Objective - Vital Signs Vital signs: Vital Signs Temp 97.8 F 10/26/23 08:00 Pulse 76 10/26/23 09:26 Resp 16 10/26/23 08:00 BP 143/81 10/26/23 08:00 Pulse Ox 96 10/26/23 08:00 FiO2 35 10/16/23 15:44 Intake & Output 10/25/23 10/26/23 10/26/23 18:59 06:59 18:59 Intake Total 1437 10 960 Output Total 1300 Balance 1437 -1290 960 Weight 99.5 kg Intake: IV 100 10 Invasive Line 3 10 Piperacillin-Tazobactam 3 100 .375 gm In Sodium Chloride 0.9% 100 ml @ 25 mls/hr IVPB Q8HR [facility] Rx# :[id number] Intake, IV Titration 100 Amount Piperacillin-Tazobactam 3 100 .375 gm In Sodium Chloride 0.9% 100 ml @ 25 mls/hr IVPB Q8HR [facility] Rx# :[id number] Oral 1237 960 Output: Urine 1300 Other: Voiding Method Indwelling Catheter Indwelling Catheter Indwelling Catheter # Bowel Movements 1 - Exam GENERAL EXAM: Alert, 72-year-old male, sitting up in bed, on 2 L nasal cannula, comfortable in no apparent distress. HEAD: Normocephalic and atraumatic EYES: Normal reaction of pupils, equal size. NOSE: Clear with pink turbinates. THROAT: No erythema or exudates. NECK: No masses, no JVD. CHEST: No chest wall deformity. Old sternotomy incisional scar LUNGS: Equal air entry with bilateral rhonchi, worse on the right. No conversational dyspnea or accessory muscle use. CVS: S1 and S2 normal with no audible murmur, regular rhythm. No extra heart sounds ABDOMEN: No hepatosplenomegaly, active bowel sounds, no guarding or rigidity. SPINE: No scoliosis or deformity SKIN: No rashes CENTRAL NERVOUS SYSTEM: Alert, only oriented to self. Follows simple commands. No focal deficits, tone is normal in all 4 extremities. EXTREMITIES: Bilateral lower extremity edema, chronic venous stasis changes, with multiple right lower extremity wounds involving the anterior hurley and foot, with purulent discharge. - Labs CBC & Chem 7: 10/17/23 10:57 10/24/23 07:41 Labs: Microbiology - Last 24 Hours (Table) 10/24/23 13:15 Gram Stain - Preliminary Pleural Fluid Body Fluid Culture - Preliminary Assessment and Plan Plan: Acute hypoxemic respiratory failure, possibly secondary to aspiration and aspiration pneumonitis, patient reportedly had a witnessed aspiration event on his medications at his ECF, chest x-ray on arrival to the emergency department showed low lung volumes with right lower lung airspace opacities concerning for aspiration pneumonia versus atelectasis. Procalcitonin 0.17. VQ scan ruled out pulmonary embolism. The patient was identified to have right-sided pleural effusion. Thoracentesis was done a total of 950 cc of pleural fluid were aspirated without any complications. The fluid chemistry is consistent with transudate with low LDH and low protein. No signs of any significant respiratory distress. Currently on 2 L of oxygen by nasal cannula C. difficile colitis, started on oral vancomycin. Patient's diarrhea has subsided Acute COPD exacerbation, improving, recovered and is back to normal Urinary tract infection secondary to E. coli ESBL and Pseudomonas aeruginosa Right foot cellulitis with culture positive for E. coli ESBL and Pseudomonas aeruginosa Acute kidney injury secondary to diuretics, UTI, creatinine is stable History of coronary artery disease with previous coronary artery bypass surgery History of heart failure with preserved ejection fraction, follow-up echocardiogram pending History of peripheral arterial disease Chronic macrocytic anemia Chronic kidney disease stage III Possible UTI History of alcoholism History of CVA/TIA History of hyperlipidemia Remote history of pulmonary embolism, not on any anticoagulation currently Bilateral lower extremity edema Chronic right lower extremity wounds Former tobacco smoker Plan: Oxygenation is slightly worsened currently on 2 L of O2 nasal cannula Titrate down the FiO2 as tolerated thoracentesis of the right lung was done, fluid is a transudate, awaiting pleural fluid cytology Completed the course of antibiotics and the patient is currently on p.o. va ncomycin Continue the current treatment plan Plan is for [facility] today
== END 2023-10-26 13:34 | DRG 698 ==
LOC: EC 15:27 → 3SCARD 18:26
PROVIDERS: ADMIT Hospitalist; ATTEND Hospitalist
PROC: F00ZHZZ Bedside Swallowing and Oral Function Assessment (ICD-10-PCS; 2023-10-17)
PROC: 0W993ZZ Drainage of Right Pleural Cavity, Percutaneous Approach (ICD-10-PCS; principal; 2023-10-24)
DX: T83.511A Infection and inflammatory reaction due to indwelling urethral catheter, initial encounter (principal); I50.33 Acute on chronic diastolic (congestive) heart failure; J69.0 Pneumonitis due to inhalation of food and vomit; J96.21 Acute and chronic respiratory failure with hypoxia; N17.0 Acute kidney failure with tubular necrosis; I13.0 Hypertensive heart and chronic kidney disease with heart failure and stage 1 through stage 4 chronic kidney disease, or unspecified chronic kidney disease; L97.812 Non-pressure chronic ulcer of other part of right lower leg with fat layer exposed; J44.1 Chronic obstructive pulmonary disease with (acute) exacerbation; L03.115 Cellulitis of right lower limb; A04.72 Enterocolitis due to Clostridium difficile, not specified as recurrent; J91.8 Pleural effusion in other conditions classified elsewhere; Z16.19 Resistance to other specified beta lactam antibiotics; Z20.822 Contact with and (suspected) exposure to COVID-19; N39.0 Urinary tract infection, site not specified; I08.1 Rheumatic disorders of both mitral and tricuspid valves; Y84.6 Urinary catheterization as the cause of abnormal reaction of the patient, or of later complication, without mention of misadventure at the time of the procedure; N18.30 Chronic kidney disease, stage 3 unspecified; Z95.1 Presence of aortocoronary bypass graft; D53.9 Nutritional anemia, unspecified; L97.512 Non-pressure chronic ulcer of other part of right foot with fat layer exposed; B96.20 Unspecified Escherichia coli [E. coli] as the cause of diseases classified elsewhere; I27.29 Other secondary pulmonary hypertension; I25.10 Atherosclerotic heart disease of native coronary artery without angina pectoris; F17.210 Nicotine dependence, cigarettes, uncomplicated; T50.2X5A Adverse effect of carbonic-anhydrase inhibitors, benzothiadiazides and other diuretics, initial encounter; X58.XXXA Exposure to other specified factors, initial encounter; E78.5 Hyperlipidemia, unspecified; Z86.711 Personal history of pulmonary embolism; F10.20 Alcohol dependence, uncomplicated; B96.5 Pseudomonas (aeruginosa) (mallei) (pseudomallei) as the cause of diseases classified elsewhere; E11.22 Type 2 diabetes mellitus with diabetic chronic kidney disease; E11.621 Type 2 diabetes mellitus with foot ulcer; I25.2 Old myocardial infarction; K59.00 Constipation, unspecified; L98.492 Non-pressure chronic ulcer of skin of other sites with fat layer exposed; E11.51 Type 2 diabetes mellitus with diabetic peripheral angiopathy without gangrene; R29.6 Repeated falls; Z91.81 History of falling; M85.88 Other specified disorders of bone density and structure, other site; Z79.01 Long term (current) use of anticoagulants; Z79.51 Long term (current) use of inhaled steroids; Z79.899 Other long term (current) drug therapy; Z86.73 Personal history of transient ischemic attack (TIA), and cerebral infarction without residual deficits; Z79.82 Long term (current) use of aspirin; Z95.5 Presence of coronary angioplasty implant and graft
CPT/HCPCS: 36415; 71045; 71046; 74230; 76604; 78582; 80048; 80053; 81001; 82945; 83605; 83615; 83735; 83880; 84145; 84157; 85025; 85610; 85730; 87040; 87070; 87075; 87077; 87086; 87186; 87205; 87324; 87449; 87636; 88108; 88305; 89050; 93005; 93306; 93970; 94640; 94760; 96365; 96366; 96367; 96375; 96376; 99291